=== PATIENT | female | born 1995 | race African-American/Black ===

== ENCOUNTER 2017-10-01 17:51 | Emergency (ER) | payer BC, SELFPAY ==
[2017-10-01 17:51] VITALS: BP 106/53; PULSE 58; RESP 16; TEMP 36.7; O2SAT 100; BMI 16.0
[2017-10-01] MEDS: 0.9% Normal Saline 1,000 ML 999 ML IV (18:29)
[2017-10-01] MEDS: DiphenhydrAMINE 50 MG/ML Syringe 25 MG IV (18:31)
[2017-10-01] MEDS: proCHLORPERazine 10 MG/2 ML Vial IV (18:32)
[2017-10-01] MEDS: Ketorolac 30 MG/ML Syringe IV (18:32)
[2017-10-01 18:38] VITALS: PULSE 78; RESP 16; O2SAT 100
--- NOTE | 2017-10-01 18:53 | ED.DCSUM_ITS ---
- ER Visit Summary Date of Service: 10/01/17 Chief Complaint: Headache, dizzy, slurred speech History of Present Illness: The patient is a 22 F with onset of migraine approximate 6 hours prior to arrival. She states it was general in onset and consistent with her prior headaches. She describes tingling and throbbing sensation in her head along with photophobia and slow speech. She has had all these symptoms with her prior migraines. Patient has not taken anything for migraines. Patient states she was recently advised that a Chiari malformation and saw a neurosurgeon who advised him something to do. She is scheduled to see a neurologist in [place] in October due to her migraines. Physical Examination: Vital signs are unremarkable. Patient's lying in bed in a darkened room. She is in no acute distress. Head neck examination is unremarkable. Heart is regular rate and rhythm. Lung sounds are clear. Abdomen is soft and nontender. Neuro exam reveals good strength and sensation throughout. She has slow, purposeful speech. Test Results: [] Emergency Department Course and Treatment: Patient is treated Toradol, Compazine , Benadryl, and IV fluids. On repeat evaluation patient does feel improved. She be discharged home with family members. Treatment Plan: [] Disposition: Discharge Impression: Migraine, improved This note was generated with [employer] dictation software. It may contain incorrect words, spelling, and punctuation that were not noted in review of the chart prior to signing ED Disposition - Plan for ED Patient: Chief Complaint: Headache Referrals: Vivian Pierce, SISSY-C [Primary Care Provider] -
--- NOTE | 2017-10-01 19:34 | ED.DEP ---
ED Disposition - Plan for ED Patient: Disposition: Home or Assisted Living Chief Complaint: Headache Instructions: ED Headache Migraine Referrals: Vivian Pierce NP-C [Primary Care Provider] - 1 Week
[2017-10-01 19:40] VITALS: BP 118/75; PULSE 61; RESP 16; O2SAT 99
== END 2017-10-01 19:54 | disposition home or self-care (01) ==
PROVIDERS: Emergency Provider Emergency Medicine; Family Provider Nurse Practitioner Family; PCP Nurse Practitioner Family
DX: G43.909 Migraine, unspecified, not intractable, without status migrainosus (principal); J45.909 Unspecified asthma, uncomplicated
CPT/HCPCS: 96361; 96374; 96375; 99284; J7030

== ENCOUNTER 2017-11-17 18:27 | Emergency (ER) | payer BC, SELFPAY ==
[2017-11-17 18:29] VITALS: BP 123/69; PULSE 52; RESP 14; TEMP 37.1; O2SAT 98; BMI 35.3
--- NOTE | 2017-11-17 19:02 | RAD_ITS ---
STUDY: X-RAY - RIGHT ANKLE REASON FOR EXAM: Female, 22 years old. Right-sided ankle pain and swelling after twisting injury. TECHNIQUE: 3 view(s) of the ankle. COMPARISON: None. FINDINGS: Normal visualized distal tibia and fibula. Normal medial and lateral malleoli. Normal tibiotalar articulation and ankle mortise. Normal visualized talus and calcaneus. The joint spaces are within normal limits. Visualized metatarsals have a grossly normal appearance. There is no demonstrated fracture. There is soft tissue swelling. RAD/Ankle min 3 Views IMPRESSION: No radiographic evidence of acute fracture. If there is still clinical concern for acute fracture, follow-up radiographs in 7-10 days maybe helpful in evaluating a healing radiographically occult fracture. Electronically Signed: Sue Garcia MD at 19:39 EDT , Service support ,
--- NOTE | 2017-11-17 20:49 | ED.DCSUM_ITS ---
- ER Visit Summary Date of Service: 11/17/17 Chief Complaint: Right ankle pain History of Present Illness: The patient is a 22 F who presents with pain in her right ankle that began after a fall today. Patient states she fell down a few steps. Patient is unsure of the exact mechanism of injury. Patient states her pain is worse with any ambulation. Patient denies any paresthesias or weakness. Patient denies any other injuries. Physical Examination: Vital signs are stable. Patient is afebrile. Patient is in no acute distress. Examination of the right ankle reveals tenderness over the medial and lateral malleoli. There is some edema noted. There is no bony crepitance or step-off noted. There is no deformity noted. Range of motion was limited in all motions of the right ankle secondary to pain. Pedal pulses were equal bilaterally. There is good capillary refill in all digits. Sensation was intact to light touch in all digits. Test Results: X-rays of the right ankle were obtained. There is no acute fracture noted. Emergency Department Course and Treatment: She was given an Aircast here. Patient was given a dose of Naprosyn here. Treatment Plan: Patient was instructed to ice and elevate the right ankle. Patient was instructed to wear her Aircast at all times while awake. Patient was given a prescription for Naprosyn. Patient was instructed to follow-up with her primary care physician in 7-10 days. Patient understood and was agreeable with the plan. All questions were answered. Disposition: Discharged home Impression: Right ankle sprain This note was generated with [employer] dictation software. It may contain incorrect words, spelling, and punctuation that were not noted in review of the chart prior to signing ED Disposition - Plan for ED Patient: Disposition: Home or Assisted Living Chief Complaint: Lower Extremity Injury Diagnosis: Right ankle sprain Instructions: ED Sprain Ankle W X Ray Prescriptions: Naproxen [Naprosyn] 500 mg PO BID PRN PRN #20 tab PRN Reason: Pain Referrals: Vivian Pierce NP-C [Primary Care Provider] -
[2017-11-17] MEDS: Naproxen 500 MG Tablet PO (20:52)
[2017-11-17 21:00] VITALS: RESP 18
== END 2017-11-17 21:04 | disposition home or self-care (01) ==
PROVIDERS: Emergency Provider Emergency Medicine; Family Provider Nurse Practitioner Family; PCP Nurse Practitioner Family
DX: S93.401A Sprain of unspecified ligament of right ankle, initial encounter (principal); W10.9XXA Fall (on) (from) unspecified stairs and steps, initial encounter; Y93.9 Activity, unspecified; Y92.9 Unspecified place or not applicable; G43.909 Migraine, unspecified, not intractable, without status migrainosus
CPT/HCPCS: 73610; 99283

== ENCOUNTER 2018-01-29 12:56 | Emergency (ER) | payer BC, SELFPAY ==
[2018-01-29 12:56] VITALS: BP 121/70; PULSE 64; RESP 16; TEMP 36.6; O2SAT 97; BMI 35.6
--- NOTE | 2018-01-29 13:41 | ED.DCSUM_ITS ---
- ER Visit Summary Date of Service: 01/29/18 Chief Complaint: Back pain History of Present Illness: The patient is a 22 F presenting with back pain ?3 days. She has pain in her bilateral lower back radiating to both legs. Denies numbness or weakness. Denies bowel or bladder incontinence. Denies known trauma. She has had similar symptoms in the past that resolved on its own. She tried stretching and Tylenol with minimal improvement. Denies fever. Denies drug use. Physical Examination: Vitals are stable. Patient is afebrile. Alert no acute distress. HEENT exam is unremarkable. Neck is supple. Lungs are clear and equal bilaterally. Heart is regular rate and rhythm. Abdomen is soft nontender nondistended. Back bilateral lower lumbar paraspinal muscle tenderness with no midline tenderness. Straight leg raise positive at 30? on the right. Extremities are unremarkable. Skin is warm and dry. No focal neurologic deficit. Normal strength and sensation Remainder of exam is unremarkable Emergency Department Course and Treatment: Patient is given Toradol, Norflex IM with improvement. Patient is advised to rest and follow-up with primary care physician. She is given prescription for Naprosyn and Flexeril. Advised return to ED if worsening complaints. Disposition: Discharge home Impression: Lumbar back pain This note was generated with [employer] dictation software. It may contain incorrect words, spelling, and punctuation that were not noted in review of the chart prior to signing ED Disposition - Plan for ED Patient: Chief Complaint: Back Instructions: ED Neck Back Pain General Prescriptions: Naproxen [Naprosyn] 500 mg PO BID PRN #20 tablet Cyclobenzaprine [Flexeril] 10 mg PO TID PRN #20 tablet PRN Reason: Muscle Spasm Referrals: Vivian Pierce, MANAGER ADMINISTRATIVE-C [Primary Care Provider] -
[2018-01-29] MEDS: Ketorolac 60 MG/2 ML Vial IM (13:54)
[2018-01-29] MEDS: Orphenadrine 60 MG/2 ML Ampul IM (13:55)
--- NOTE | 2018-01-29 15:40 | DCINST.ED_ITS ---
ED Disposition - Plan for ED Patient: Chief Complaint: Back Instructions: ED Neck Back Pain General Prescriptions: Naproxen [Naprosyn] 500 mg PO BID PRN #20 tablet Cyclobenzaprine [Flexeril] 10 mg PO TID PRN #20 tablet PRN Reason: Muscle Spasm Referrals: Vivian Pierce, ORTHOPEDIC NURSE PRACTITIONER-C [Primary Care Provider] -
[2018-01-29 15:48] VITALS: BP 111/81; PULSE 50; RESP 16; O2SAT 100
--- NOTE | 2018-01-29 15:49 | ED.RN ---
REVIEWED D/C INSTRUCTIONS, FOLLOW UP CARE, PRESCRIPTIONS, AND S/S THAT WOULD WARRANT A RETURN TO THE ED WITH PT. PT VERBALIZED AN UNDERSTANDING AND DENIES FURTHER QUESTIONS FOR THIS RN. PT SKIN P/W/D, RESP EVEN AND UNLABORED, PT A&O X 3, NO DISTRESS NOTED. PT AMBULATED OUT OF ED, GAIT STEADY.
== END 2018-01-29 15:50 | disposition home or self-care (01) ==
PROVIDERS: Emergency Provider Emergency Medicine; Family Provider Nurse Practitioner Family; PCP Nurse Practitioner Family
DX: M54.5 Low back pain (principal); S39.012A Strain of muscle, fascia and tendon of lower back, initial encounter; X58.XXXA Exposure to other specified factors, initial encounter; Y93.9 Activity, unspecified; Y92.9 Unspecified place or not applicable; G43.909 Migraine, unspecified, not intractable, without status migrainosus
CPT/HCPCS: 96372; 99282; A4216

== ENCOUNTER 2018-02-26 13:38 | Emergency (ER) | payer BC, SELFPAY ==
[2018-02-26 13:39] VITALS: BP 112/72; PULSE 59; PULSE 66; RESP 16; RESP 18; TEMP 36; O2SAT 100; BMI 35.4
--- NOTE | 2018-02-26 14:08 | CT_ITS ---
STUDY: CT BRAIN WITHOUT CONTRAST REASON FOR EXAM: Female, 22 years old. Dizziness, confusion RADIATION DOSAGE (If Supplied By Facility): CTDIvol = ( 60.81 ) mGy, DLP = ( 998.67 ) mGycm TECHNIQUE: Transaxial CT imaging of the brain was performed without administration of intravenous contrast material. Sagittal and coronal reconstructed images are provided and reviewed. Individualized dose optimization techniques were used for this CT. COMPARISON: MR 08/09/2017 FINDINGS: Normal soft tissue structures. Normal calvarium. Normal size ventricles and extra-axial spaces for the patient's age. Normal white matter tracts of the cerebral hemispheres. Normal basal ganglia and thalami. Normal brainstem. The cerebellar tonsils are low, consistent with a Chiari I malformation. There is no intracranial hemorrhage. There are no findings of an acute ischemic infarction. Normal visualized paranasal sinuses. CT/Brain/Head without Contrast IMPRESSION: Chiari I malformation. No acute intracranial abnormality. Electronically Signed: Cassius Barboza DO at 15:24 EDT Tel , Service support ,
--- NOTE | 2018-02-26 14:09 | EKG12_ITS ---
Test Reason : DIZZINESS Blood Pressure : / mmHG Vent. Rate : 054 BPM Atrial Rate : 054 BPM P-R Int : 166 ms QRS Dur : 080 ms QT Int : 442 ms P-R-T Axes : 038 023 037 degrees QTc Int : 419 ms Sinus bradycardia with sinus arrhythmia Otherwise normal ECG Confirmed by SARA CHINCHILLA, BECKY ([id number]), newspaper copy editor GABRIEL WOODS ([id number]) on 02/28/2018 9:16:37 AM Referred By: GRAHAM Confirmed By:BECKY RUIZ MD
--- NOTE | 2018-02-26 14:11 | ED.RN ---
NO OLD EKG'S IN MUSE.
[2018-02-26] MEDS: 0.9% Normal Saline 1,000 ML 1000 ML IV (14:37)
[2018-02-26 14:40] LABS: Absolute Lymphocyte Count 1.83 X10^3/ul (0.83-4.51); Absolute Neutrophil Count 2.3 X10^3/uL (2.0-7.7); Basophil# 0.01 X10^3/uL; Basophil% 0.2 % (0-1); Eosinophil# 0.21 X10^3/uL; Eosinophils% 4.7 % (0-5); Hematocrit 40.6 % (37-47); Hemoglobin 13.1 g/dl (12.0-15.0); Lymphocyte # 1.83 X10^3/ul (4.0); Lymphocyte % 40.8 % (19-41); Mean Corp Hgb Conc 32.3 g/gl (32-36); Mean Corpuscular Hgb 29.2 pg (27.0-32.0); Mean Corpuscular Volume 90.4 fL (81-99); Mean Platelet Vol. 13.9 fl (6.2-12.0); Monocyte# 0.18 X10^3/uL; Neutrophil # 2.25 X10^3/uL (2.7-7.7); Neutrophil % 50.1 % (47-70); Platelet Count 111 K/mm3 (150-450); RBC Distribution Width CV 13.7 % (11.6-14.6); RBC Distribution Width SD 45.2 fl (35.1-43.9); Red Blood Count 4.49 M/mm3 (4.2-5.4); White Blood Count 4.5 K/mm3 (4.4-11.0)
[2018-02-26 14:42] LABS: POSITIVE COUNT NO; POSITIVE DIFFERENTIAL NO; POSITIVE MORPHOLOGY NO
[2018-02-26 14:54] LABS: Anion Gap 5 (5-15); BUN 20 mg/dL (7-18); BUN/Creat Ratio 18.3 RATIO (10-20); Calcium,Total 8.9 mg/dL (8.5-10.1); Chloride 107 mmol/L (98-107); Creatinine, Serum 1.09 mg/dL (0.55-1.02); EST Glomerular Filtration Rate 66 mL/min (>60); Est Glom Filt Rate - Afr Amer 80 mL/min (>60); Estimated Creatinine Clearance 72.85 ml/min; Glucose 62 mg/dL (74-106); Potassium 3.7 mmol/L (3.5-5.1); Sodium Level 142 mmol/L (136-145)
[2018-02-26 15:05] LABS: Pregnancy, Serum, hCG Quali. NEGATIVE Negative (0-9 Nonpreg)
[2018-02-26 15:47] VITALS: BP 114/72; PULSE 57; RESP 18; O2SAT 98
--- NOTE | 2018-02-26 16:19 | ED.VISSUMM ---
- ER Visit Summary Date of Service: 02/26/18 Chief Complaint: Dizzy, lightheaded History of Present Illness: The patient is a 22 F with a history of migraine headaches. Patient reports a brief episode of dizziness at home this morning. After arriving at work she had another dizzy episode. Patient states she to hold onto something and sit down. She states she felt confused after this episode and somewhat had difficulty speaking. Symptoms are now improving. Patient states that she has had difficulty speaking with prior migraines but she had no headache this time. She did eat today. She had no recent head injury or cold symptoms. Physical Examination: Vital signs are unremarkable. Patient sitting upright in no acute distress. Head and neck examination is unremarkable. Heart is regular rate and rhythm. Lung sounds are clear. Abdomen is soft and nontender. Neuro exam is normal. Test Results: EKG is sinus at 54 with no sign of acute ischemia. CBC is significant only for platelet count of 111,000. I have no prior values to compare to. Chemistry studies reveal glucose of 62, BUN of 20, creatinine 1.09. test is negative. CT the head shows a Chiari I malformation. There is no acute abnormality. Emergency Department Course and Treatment: Patient is given IV fluids. Upon return of blood work she is given apple juice to drink. On repeat evaluation she is sitting up playing on her cell phone. She does feel improved. Patient has been given a liter of IV fluids to help with mild dehydration. She is encouraged to increase fluids over the next several days and make sure she is keeping her blood sugar up. I will notify patient and mother about the low platelet count make sure she follows up with [facility]. Treatment Plan: [] Disposition: Discharge Impression: 1. Dizziness, improved 2. Mild hypoglycemia 3. Thrombocytopenia This note was generated with [employer] software. It may contain incorrect words, spelling, and punctuation that were not noted in review of the chart prior to signing ED Disposition - Plan for ED Patient: Chief Complaint: Dizziness Referrals: Vivian Pierce NP-C [Primary Care Provider] -
--- NOTE | 2018-02-26 16:24 | DCINST.ED_ITS ---
ED Disposition - Plan for ED Patient: Disposition: Home or Assisted Living Chief Complaint: Dizziness Instructions: ED Dehydration, ED Dizziness [facility] Referrals: Vivian Pierce, PAGE MAKEUP SYSTEM OPERATOR-C [Primary Care Provider] - 1 Week
[2018-02-26 16:30] VITALS: BP 129/50; PULSE 59; RESP 18; O2SAT 100
== END 2018-02-26 16:30 | disposition home or self-care (01) ==
PROVIDERS: Emergency Provider Emergency Medicine; Family Provider Nurse Practitioner Family; PCP Nurse Practitioner Family
DX: R42 Dizziness and giddiness (principal); E16.2 Hypoglycemia, unspecified; D69.6 Thrombocytopenia, unspecified; E86.0 Dehydration; G43.909 Migraine, unspecified, not intractable, without status migrainosus; G93.5 Compression of brain
CPT/HCPCS: 70450; 80048; 84703; 85025; 93005; 96360; 99284; J7030; A4216

== ENCOUNTER 2018-05-26 22:21 | Emergency (ER) | payer BC, SELFPAY ==
[2018-05-26 22:22] VITALS: BP 112/69; PULSE 59; RESP 14; TEMP 36.9; O2SAT 99; BMI 37.8
--- NOTE | 2018-05-26 23:16 | ED.VISSUMM ---
- ER Visit Summary Date of Service: 05/26/18 Chief Complaint: [] She states she woke up this morning with nasal congestion. Gradual onset. No home treatment. She has had some mild myalgias. Also when she takes a deep breath she feels a little bit of chest congestion. No sick contacts. Comes in for further evaluation. No fevers or chills. History of Present Illness: The patient is a 23 F [] see above Physical Examination: [] Vital signs reviewed General: Well-nourished well-developed Head: Normocephalic atraumatic Eyes: Pupils equal round and reactive to light extraocular movements intact ENT: TMs clear no hemotympanum no trauma mild nasal congestion Neck: Nontender full range of motion Cardiovascular: Regular rate rhythm no murmurs normal S1-S2 Respiratory: No distress clear to auscultation bilaterally chest nontender Abdomen: Soft nontender nondistended normal bowel sounds no masses Back: Nontender no CVA tenderness Extremities: Nontender active range of motion ?4 extremities no trauma Skin: Normal color no trauma Neuro alert oriented cranial nerves II through XII intact normal strength sensation reflexes Test Results: [] Emergency Department Course and Treatment: [] At this time I think the patient has an upper respiratory infection or viral syndrome. She will use ibuprofen and Sudafed. Do not feel she needs lab work or imaging. I do not think she has pneumonia. I do not think she needs antibiotics. She will follow-up as an outpatient Treatment Plan: [] Disposition: [] Impression: [] Upper respiratory infection This note was generated with [employer] dictation software. It may contain incorrect words, spelling, and punctuation that were not noted in review of the chart prior to signing ED Disposition - Plan for ED Patient: Chief Complaint: Cold Sx Referrals: Vivian Pierce, AGING ROOM HAND-C [Primary Care Provider] -
--- NOTE | 2018-05-26 23:17 | ED.DEP ---
ED Disposition - Plan for ED Patient: Disposition: Home or Assisted Living Chief Complaint: Cold Sx Instructions: ED Upper Resp Infec No Abx Tx Referrals: Aletha Russo DO [NON-STAFF] -
--- NOTE | 2018-05-26 23:44 | ED.RN ---
DISCHARGE INSTRUCTIONS GIVEN TO AND REVIEWED WITH PATIENT, PATIENT DENIES QUESTIONS OR CONCERNS AND VOICES UNDERSTANDING OF DISCHARGE INSTRUCTIONS. PT AMBULATES OUT OF ROOM WITHOUT DIFFICULTY.
== END 2018-05-26 23:45 | disposition home or self-care (01) ==
LOC: ED 23:26
PROVIDERS: Emergency Provider Emergency Medicine; Family Provider Nurse Practitioner Family; PCP Nurse Practitioner Family
DX: J06.9 Acute upper respiratory infection, unspecified (principal); E66.9 Obesity, unspecified; G93.5 Compression of brain
CPT/HCPCS: 99283

== ENCOUNTER → 2018-07-17 14:04 | Outpatient (CLI) | payer BC, SELFPAY ==
[2018-07-23 19:33] LABS: HPV Reflexed? NOT INDICATED
== END ==
PROVIDERS: Visit Provider Obstetrics & Gynecology
DX: Z12.4 Encounter for screening for malignant neoplasm of cervix (principal)
CPT/HCPCS: 88175; G0145

== ENCOUNTER 2019-02-15 20:30 | Emergency (ER) | payer BC, SELFPAY ==
[2019-02-15 20:30] VITALS: BP 129/93; PULSE 43; RESP 15; TEMP 36.7; O2SAT 100; BMI 35.4
[2019-02-15] MEDS: SUMAtriptan 6 MG/0.5 ML Vial SC (20:58)
--- NOTE | 2019-02-15 21:30 | ED.DCSUM_ITS ---
History of Present Illness Chief Complaint: Headache Narrative: Patient presenting for evaluation secondary to a headache. Patient has an underlying history of migraine headaches, takes sotalol for this. She also reports that she typically takes Imitrex for of these headaches, but she is been out of it over the course of about the last month. Patient states that yesterday she had an onset of a headache that is typical for her headaches. It was gradual in onset is left-sided and is throbbing. Associated with some photophobia and nausea. Patient states that she feels somewhat foggy and has a little bit of word finding difficulty but this is not abnormal for her headaches. She denies any recent head injuries fevers neck stiffness or any abnormal skin rashes associated with this. [id number]-[id number] remedies have not alleviated the symptoms. Review of systems otherwise negative. Past Medical History - Allergies and Home Meds Allergies/Adverse Reactions: Allergies amoxicillin Allergy (Verified 02/15/19 20:33) Hives Primary Care Physician: Fermín Bautista NP-C [Primary Care Provider] - Smoking Status: Never smoker Review of Systems All systems negative except as indicated General: Denies: Fever Eyes: Denies: Visual changes - bilaterally Gastrointestinal: Reports: Nausea Neurological: Reports: Headache. Denies: Weakness, Parasthesia Physical Exam Vital Signs/Narrative: Vital Signs Temp Pulse Resp BP Pulse Ox 02/15/19 20:30 98.0 F 43 L 15 129/93 H 100 General: Well nourished, Well developed Head: NC, AT. Negative for: Temporary Artery Tenderness Eyes: Perrl, EOMI, - - Normal for endoscopy with no papilledema or hemorrhage ENT: Moist mucous membranes, No rhinorrhea Neck: Supple, No Lymphadenopathy, No JVD, Nontender, No Meningismus - Negative Brudzinski, Kernig, jolt Cardiovascular: Regular rhythm, No murmurs, Bradycardia Respiratory: No distress, CTA bilaterally, Chest nontender Abdomen: Soft, Nontender, Nondistended, Normal bowel sounds Extremities: Nontender, No edema Skin: Normal color, No rash, - - No petechia Neuro: Alert, Oriented x3, Cranial nerves II-XII grossly intact, Normal Strength, Normal Sensation, Normal DTR, Normal Gait Psychological: Normal affect Diagnostic/Tx/Re-eval - Medical Decision Making Patient presented secondary to a migraine headache. This was typical for her usual headaches. Patient was given a dose of subcutaneous Imitrex, repeat evaluation of the patient at 2130 showed improvement of her headache. This point I believe that she is appropriate for discharge. Patient will be given a prescription for Imitrex as she is been out of this, she was instructed to fol low-up with her neurologist. Patient was discharged in improved condition. Disposition: Home ED Disposition - Plan for ED Patient: Disposition: Home or Assisted Living Diagnosis: Migraine headache Instructions: ED Headache Migraine Prescriptions: Sumatriptan Succinate [Imitrex] 25 mg PO .X1 PRN #5 tab Referrals: Fermín Bautista NP-C [Primary Care Provider] - Additional Instructions: Follow-up with your neurologist
[2019-02-15 21:42] VITALS: BP 124/82; PULSE 50; RESP 18; O2SAT 99
== END 2019-02-15 21:44 | disposition home or self-care (01) ==
PROVIDERS: Emergency Provider Emergency Medicine; Family Provider Nurse Practitioner Primary Care; PCP Nurse Practitioner Primary Care
DX: G43.909 Migraine, unspecified, not intractable, without status migrainosus (principal)
CPT/HCPCS: 96372; 99282; J3030

== ENCOUNTER 2019-08-22 16:42 | Emergency (ER) | payer BC, SELFPAY ==
[2019-08-22 16:43] VITALS: BP 158/95; PULSE 81; RESP 16; TEMP 36.9; O2SAT 97; BMI 39.1
--- NOTE | 2019-08-22 16:54 | CT_ITS ---
STUDY: CT BRAIN WITHOUT CONTRAST REASON FOR EXAM: Female, 24 years old. MIGRAINE FUENTES X 4 HRS, WORSE THAN NORMAL, EYES LIGHT SENSITIVE RADIATION DOSAGE (If Supplied By Facility): CTDIvol = ( 44.99 ) mGy, DLP = ( 762.36 ) mGycm TECHNIQUE: Transaxial CT imaging of the brain was performed without administration of intravenous contrast material. Individualized dose optimization techniques were used for this CT. COMPARISON: Prior study of 02/26/2018 FINDINGS: Normal soft tissue structures. Normal calvarium. Normal size ventricles and extra-axial spaces for the patient''s age. Normal white matter tracts of the cerebral hemispheres. Normal basal ganglia and thalami. Normal brainstem. Normal cerebellum. There is no intracranial hemorrhage. There are no findings of an acute ischemic infarction. Normal visualized paranasal sinuses. CT/Brain/Head without Contrast IMPRESSION: Normal unenhanced CT scan of the brain. Electronically Signed: Gregorio Mcclure MD at 18:05 EST , Service support ,
--- NOTE | 2019-08-22 16:55 | ED.VIS.GEN ---
History of Present Illness Chief Complaint: Headache Informant: Patient, Family Onset: Hours - 4 hours Context: Gradual Onset Current Severity: Severe Maximum Severity: Severe Narrative: Patient presents with migraine that is come on over the past 4 hours. She states it feels a gets behind her left eye. She has some slurred speech and some tremors. She states she is only had this happen a few times with severe migraines, it is not typical of her normal migraine. Patient is on nortriptyline for her migraines. She has not taken anything else today for headache. She denies recent head trauma. She denies recent URI symptoms. She has mild nausea but no vomiting. She has light sensitivity and sound sensitivity. - Past Medical History (1) Migraines Status: Chronic Past Medical History - Allergies and Home Meds Allergies/Adverse Reactions: Allergies amoxicillin Allergy (Verified 08/22/19 16:43) Sergei Primary Care Physician: Fermín Bautista NP-C [Primary Care Provider] - Prior records reviewed: Yes Smoking Status: Never smoker Review of Systems General: Denies: Chills, Fever Eyes: Reports: - - Light sensitivity. Denies: Visual changes - bilaterally ENT: Denies: Bilateral ear pain Cardiovascular: Denies: Chest pain Respiratory: Denies: Dyspnea, Cough Gastrointestinal: Reports: Nausea. Denies: Abdominal pain, Vomiting Musculoskeletal: Reports: Neck pain Skin: Denies: Rash Neurological: Reports: Headache. Denies: Parasthesia Hematologic: Denies: Easy bruising Allergy: Denies: Uticaria Physical Exam Vital Signs/Narrative: Vital Signs Temp Pulse Resp BP Pulse Ox 08/22/19 16:43 98.4 F 81 16 158/95 H 97 Inital Vital Signs reviewed: Yes General: Well nourished, Well developed Head: Normocephalic Eyes: Perrl, EOMI ENT: Moist mucous membranes Neck: Supple, - - Muscular tenderness throughout the cervical paraspinal muscles. No meningismus. Cardiovascular: Regular rate, Regular rhythm Respiratory: No distress, CTA bilaterally Abdomen: Soft, Nontender Extremities: Nontender Skin: Normal color, No rash Neurological: Alert, Oriented x3, Normal Strength, Normal Sensation, - - Slow purposeful speech but she is easily understood. Psychological: Normal affect Diagnostic/Tx/Re-eval Impressions Brain CT 08/22/19 16:54 IMPRESSION: Normal unenhanced CT scan of the brain. Electronically Signed: Gregorio Mcclure MD at 18:05 EST , Service support , 08/22/19 16:54 Brain/Head without Contrast [CT] Stat - Medical Decision Making Patient was given Toradol, Reglan, Benadryl, and IV fluids. On repeat evaluation she states her headache is resolved. Her speech is clear and she feels back to her normal baseline. Test results are discussed with patient and mother at bedside. She will be discharged home with family. ED Disposition - Plan for ED Patient: Disposition: Home or Assisted Living Diagnosis: Migraine Instructions: ED, Migraine (Classical) Referrals: Fermín Bautista NP-C [Primary Care Provider] - As Needed
[2019-08-22] MEDS: Ketorolac 30 MG/ML Syringe IV (17:11)
[2019-08-22] MEDS: DiphenhydrAMINE 50 MG/ML Syringe 25 MG IV (17:12)
[2019-08-22] MEDS: Metoclopramide 10 MG/2 ML Vial IV (17:12)
[2019-08-22] MEDS: 0.9% Normal Saline 1,000 ML 999 ML IV (17:12)
[2019-08-22 17:18] VITALS: BP 132/95; PULSE 91; RESP 15; O2SAT 99
[2019-08-22 19:04] VITALS: BP 138/89; PULSE 102; RESP 17; O2SAT 100
== END 2019-08-22 19:06 | disposition home or self-care (01) ==
PROVIDERS: Emergency Provider Emergency Medicine; Family Provider Nurse Practitioner Primary Care; PCP Nurse Practitioner Primary Care
DX: G43.909 Migraine, unspecified, not intractable, without status migrainosus (principal)
CPT/HCPCS: 70450; 96361; 96374; 96375; 99283; J7030

== ENCOUNTER 2020-12-03 09:09 | Emergency (ER) | payer OTHER, SELFPAY ==
[2020-12-03 09:09] VITALS: BP 138/83; PULSE 91; RESP 16; TEMP 37.2; O2SAT 100; BMI 40.2
[2020-12-03] MEDS: Ketorolac 30 MG/ML Syringe IM (09:34)
--- NOTE | 2020-12-03 09:46 | ED.VIS.GEN ---
History of Present Illness Chief Complaint: Back Informant: Patient Narrative: Patient is a 25-year-old female with a past medical history of Chiari malformation who presents to the emergency department for acute on chronic low back pain. She states that this episode has been present for the past 3 days. She denies any inciting events. Has been progressively getting worse. The pain is in the lower back and does radiate down the right leg to the knee. It is mostly on the lateral aspect of her thighs. She has not been taking anything for this. She currently rates the pain as severe. Any movements makes the pain worse. No radiation of the pain into her abdomen. No urinary symptoms. No change in bowel movements. No nausea or vomiting. She denies any fevers or chills. She denies any saddle anesthesia. She denies any IV drug abuse. Past Medical History - Allergies and Home Meds Allergies/Adverse Reactions: Allergies amoxicillin Allergy (Verified 12/03/20 09:11) Hivchris Primary Care Physician: Fermín Bautista DIRECTOR SALES AND MARKETING, DIRECTOR SALES AND MARKETING-C [Primary Care Provider] - 3-5 Days if not improving Prior records reviewed: Yes Past Medical History: None Surgical History: noncontributory Smoking Status: Never smoker Review of Systems All systems negative except as indicated General: Denies: Chills, Fever, Sweats Eyes: Denies: Visual changes - bilaterally, Diplopia ENT: Denies: Rhinorrhea, Sore throat Cardiovascular: Denies: Chest pain, Palpitations Respiratory: Denies: Dyspnea, Cough, Dyspnea on exertion Gastrointestinal: Denies: Abdominal pain, Nausea, Vomiting, Diarrhea, Melena, Hematochezia Genitourinary: Denies: Dysuria, Hematuria, Frequency Musculoskeletal: Reports: Back pain, Extremity Pain. Denies: Neck pain, Swelling Skin: Denies: Rash, Wounds Neurological: Denies: Headache, Weakness, Numbness Physical Exam Vital Signs/Narrative: Vital Signs Temp Pulse Resp BP Pulse Ox 12/03/20 09:09 98.9 F 91 16 138/83 H 100 Inital Vital Signs reviewed: Yes General: Well nourished, Well developed, No Acute Distress Head: Normocephalic, Atraumatic Eyes: Perrl, EOMI ENT: Moist mucous membranes, No rhinorrhea Neck: Supple, Nontender Cardiovascular: Regular rate, Regular rhythm, No murmurs Respiratory: No distress, CTA bilaterally, Chest nontender Abdomen: Soft, Nontender, Nondistended, Normal bowel sounds Back: Normal Inspection, - - Tenderness over the right piriformis region on the right. Negative straight leg test but does have pain with raising her leg in the buttock region. Equal sensation bilateral. 2+ DP pulse. 5 out of 5 muscle strength.. Negative for: CVA tenderness, Spinal tenderness Extremities: Nontender, No edema Skin: Normal color, No rash Neurological: Alert, Normal Strength, Normal Sensation Psychological: Normal affect, Normal Mood Diagnostic/Tx/Re-eval - Medical Decision Making Patient presents to the ED for acute on chronic nontraumatic low back pain. She has no red flag symptoms for acute surgical spinal emergency. Without any trauma I do not feel any imaging is necessary. Will treat symptomatically with a dose of IM Toradol. Patient reassessed after treatment and she has gotten improvement in her pain. She does feel like it is manageable at this time. We will write a prescription for Naprosyn and Flexeril for home treatment. She understands that the Flexeril can make her sleepy and should not operate machinery with this. She is to follow-up with her PCP. Return precautions are reviewed. Will discharge home in stable condition. Her symptoms do seem related to musculoskeletal pain. All questions were answered. ED Disposition - Plan for ED Patient: Disposition: Home or Assisted Living Diagnosis: Low back pain Instructions: ED Back Pain (Acute or Chronic) Prescriptions: cycloBENZAPRine HCl [Flexeril] 10 mg PO TID PRN #9 tab PRN Reason: Muscle Spasm Transmission Status: Received by [id number] Naproxen [Naprosyn] 500 mg PO BID #14 tablet Transmission Status: Received by [id number] Referrals: Fermín Bautista DIRECTOR SALES AND MARKETING, DIRECTOR SALES AND MARKETING-C [Primary Care Provider] - 3-5 Days if not improving
[2020-12-03 10:37] VITALS: PULSE 72; RESP 16; O2SAT 97
== END 2020-12-03 10:38 | disposition home or self-care (01) ==
PROVIDERS: Emergency Provider Emergency Medicine; PCP Nurse Practitioner Primary Care
DX: M54.5 Low back pain (principal); G89.29 Other chronic pain
CPT/HCPCS: 96372; 99282

== ENCOUNTER 2021-01-18 05:34 | Emergency (ER) | payer OTHER, SELFPAY ==
[2021-01-18 05:34] VITALS: BP 148/105; PULSE 71; RESP 18; TEMP 36.7; O2SAT 100; BMI 39.0
[2021-01-18 05:46] LABS: Absolute Lymphocyte Count 1.82 X10^3/uL (0.83-4.51); Absolute Neutrophil Count 2.7 X10^3/uL (2.0-7.7); Basophil# 0.02 X10^3/uL; Basophil% 0.4 % (0-1); Eosinophil# 0.11 X10^3/uL; Eosinophils% 2.2 % (0-5); Hematocrit 41.5 % (37-47); Hemoglobin 13.3 g/dL (12.0-15.0); Lymphocyte # 1.82 X10^3/ul (0.83-4.51); Lymphocyte % 35.8 % (19-41); Mean Corpuscular Hgb 27.9 pg (27.0-32.0); Mean Corpuscular Volume 87.2 fL (81-99); Mean Platelet Vol. 12.8 fl (6.2-12.0); Monocyte# 0.38 X10^3/uL; Monocyte% 7.5 % (0-10); NRBC Flagged by Analyzer 0 % (0-5); Neutrophil # 2.74 X10^3/uL (2.7-7.7); Neutrophil % 53.7 % (47-70); Platelet Count 147 K/mm3 (150-450); RBC Distribution Width CV 13.3 % (11.6-14.6); RBC Distribution Width SD 42.8 fl (35.1-43.9); Red Blood Count 4.76 M/mm3 (4.2-5.4); White Blood Count 5.1 K/mm3 (4.4-11.0)
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
[2021-01-18] MEDS: Mag Hydrox/Al Hydrox/Simeth 30 ML UDC PO (05:58)
[2021-01-18 06:02] LABS: ALB/GLOB Ratio 1.1 RATIO (0.9-2.4); AST(SGOT) 12 U/L (15-37); Alanine Aminotransfer ALT/SGPT 17 U/L (13-56); Alkaline Phosphatase 66 U/L (45-117); Anion Gap 6 (5-15); BUN 10 mg/dL (7-18); BUN/Creat Ratio 10.2 RATIO (10-20); Calcium,Total 8.9 mg/dL (8.5-10.1); Chloride 108 mmol/L (98-107); Creatinine, Serum 0.98 mg/dL (0.55-1.02); EST Glomerular Filtration Rate 73 mL/min (>60); Est Glom Filt Rate - Afr Amer 88 mL/min (>60); Estimated Creatinine Clearance 78.96 ml/min; Globulin 3.7 g/dL (2.2-4.2); Glucose 91 mg/dL (74-106); Potassium 3.3 mmol/L (3.5-5.1); Protein, Total 7.7 g/dL (6.4-8.2); Sodium Level 142 mmol/L (136-145)
--- NOTE | 2021-01-18 06:06 | EKG12_ITS ---
Test Reason : CP Blood Pressure : / mmHG Vent. Rate : 064 BPM Atrial Rate : 064 BPM P-R Int : 140 ms QRS Dur : 080 ms QT Int : 422 ms P-R-T Axes : 037 016 046 degrees QTc Int : 435 ms Normal sinus rhythm Normal ECG Confirmed by GIANNA CHINCHILLA, MAUREEN ([id number]), research editor CHIQUIS HARDING ([id number]) on 01/20/2021 11:38:36 A M Referred By: SHAYNA Confirmed By:NICHOLAS KATZ MD
[2021-01-18 06:34] VITALS: RESP 16
[2021-01-18] MEDS: LORazepam 0.5 MG Tablet PO (06:41)
[2021-01-18 06:42] VITALS: BP 149/83; PULSE 67; RESP 14; O2SAT 99
== END 2021-01-18 06:44 | disposition home or self-care (01) ==
PROVIDERS: Emergency Provider Emergency Medicine; PCP Nurse Practitioner Primary Care
DX: F41.9 Anxiety disorder, unspecified (principal); R07.89 Other chest pain; R03.0 Elevated blood-pressure reading, without diagnosis of hypertension; E66.9 Obesity, unspecified; Z68.39 Body mass index [BMI] 39.0-39.9, adult
CPT/HCPCS: 80053; 85025; 93005; 99285; A4216

== ENCOUNTER 2021-02-15 15:39 | Emergency (ER) | payer OTHER, SELFPAY ==
[2021-02-15 15:40] VITALS: BP 141/84; PULSE 83; RESP 15; TEMP 36.3; O2SAT 99; BMI 38.2
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
== END 2021-02-15 17:14 | disposition home or self-care (01) ==
LOC: ED 16:13
PROVIDERS: Emergency Provider Emergency Medicine; PCP Nurse Practitioner Primary Care
DX: S16.1XXA Strain of muscle, fascia and tendon at neck level, initial encounter (principal); G44.209 Tension-type headache, unspecified, not intractable; V89.2XXA Person injured in unspecified motor-vehicle accident, traffic, initial encounter; Y93.9 Activity, unspecified; Y92.9 Unspecified place or not applicable
CPT/HCPCS: 70450; 72125; 99282

== ENCOUNTER 2021-02-16 12:38 | Emergency (ER) | payer OTHER, SELFPAY ==
[2021-02-15 15:40] VITALS: BMI 38.2
[2021-02-16 12:39] VITALS: BP 141/96; PULSE 84; RESP 14; TEMP 36.2; O2SAT 100; BMI 37.3
--- NOTE | 2021-02-16 12:42 | EKG12_ITS ---
Test Reason : SUICIDE Blood Pressure : / mmHG Vent. Rate : 077 BPM Atrial Rate : 077 BPM P-R Int : 136 ms QRS Dur : 078 ms QT Int : 400 ms P-R-T Axes : 060 023 068 degrees QTc Int : 452 ms Normal sinus rhythm with sinus arrhythmia Normal ECG Confirmed by GIANNA CHINCHILLA, MAUREEN ([id number]), acquisition editor CHIQUIS HARIDNG ([id number]) on 02/20/2021 10:58:01 A M Referred By: GEETA Confirmed By:NICHOLAS KATZ MD
--- NOTE | 2021-02-16 12:50 | EX.ED.DYSGE1 ---
HPI History of Present Illness Chief Complaint: Suicidal Informant: patient Onset/Context/Timing Onset: Days Context: Gradual Onset Timing: Continuous Narrative Narrative: PFSH [facility] Medical History Anxiety BP (high blood pressure) Migraines Home Medications NK 02/16/21 [History Last Taken Unknown] Allergy/AdvReac Type Severity Reaction Status Date / Time amoxicillin Allergy Hives Verified 02/16/21 12:43 Surgical History History of tonsillectomy and adenoidectomy Social History household members: family Smoking Status: Never smoker alcohol intake: never substance use type: does not use EXAM Physical Exam Const Vital Signs: 02/16/21 12:39 02/16/21 12:58 Temperature 97.1 F L Temperature Source Temporal Temporal Pulse Rate 84 Respiratory Rate 14 Blood Pressure 141/96 H Blood Pressure Mean 111 Pulse Ox 100 Oxygen Delivery Method Room Air MDM MDM MDM Narrative Medical decision making narrative: Patient presents with suicidal thoughts, plan for overdose or cutting her wrists. Patient underwent medical screening examination. EKG was obtained which was sinus rhythm without acute ischemia. Labs are unremarkable. Tox was positive for opiates, but the patient was recently discharged with Glade for pain. Alcohol was negative. was negative. At this point, the patient is medically cleared. Crisis is already evaluated the patient. Plan will be for inpatient hospitalization. Impression 1. Suicidal ideation with plan Lab Data Attestation: I reviewed the patient's lab results. Labs: Laboratory Results - last 24 hr 02/16/21 02/16/21 02/16/21 13:15 13:15 13:15 WBC 5.0 RBC 4.78 Hgb 13.3 Hct 41.7 MCV 87.2 MCH 27.8 MCHC 31.9 L RDW Std Deviation 43.4 RDW Coeff of Makayla 13.5 Plt Count 143 L MPV 13.5 H Immature Gran % (Auto) 0.400 Neut % (Auto) 73.7 H Lymph % (Auto) 20.7 Bullock % (Auto) 3.6 Eos % (Auto) 1.4 Baso % (Auto) 0.2 Absolute Neuts (auto) 3.7 Absolute Lymphs (auto) 1.03 Nucleated RBC % 0 Sodium 140 Potassium 3.5 Chloride 107 Carbon Dioxide 26.0 Anion Gap 7 BUN 13 Creatinine 1.09 H Estim Creat Clear Calc 73.86 Est GFR (MDRD) Af Amer 78 Est GFR (MDRD) Non-Af 65 BUN/Creatinine Ratio 11.9 Glucose 107 H Calcium 8.8 Serum , Qual Urine Opiates Screen Urine Methadone Screen Ur Barbiturates Screen Ur Phencyclidine Scrn Ur Amphetamines Screen U Methamphetamin-MDMA U Benzodiazepines Scrn Urine Cocaine Screen U Cannabinoids Screen Ur Drug Screen Comment Ethyl Alcohol < 3.0 02/16/21 02/16/21 13:15 13:17 WBC RBC Hgb Hct MCV MCH MCHC RDW Std Deviation RDW Coeff of Makayla Plt Count MPV Immature Gran % (Auto) Neut % (Auto) Lymph % (Auto) Bullock % (Auto) Eos % (Auto) Baso % (Auto) Absolute Neuts (auto) Absolute Lymphs (auto) Nucleated RBC % Sodium Potassium Chloride Carbon Dioxide Anion Gap BUN Creatinine Estim Creat Clear Calc Est GFR (MDRD) Af Amer Est GFR (MDRD) Non-Af BUN/Creatinine Ratio Glucose Calcium Serum , Qual NEGATIVE Urine Opiates Screen POSITIVE H Urine Methadone Screen NEGATIVE Ur Barbiturates Screen NEGATIVE Ur Phencyclidine Scrn NEGATIVE Ur Amphetamines Screen NEGATIVE U Methamphetamin-MDMA NEGATIVE U Benzodiazepines Scrn NEGATIVE Urine Cocaine Screen NEGATIVE U Cannabinoids Screen NEGATIVE Ur Drug Screen Comment Ethyl Alcohol Discharge Plan Triage Chief Complaint: Suicidal ED Provider: Faisal Zaragoza Dx/Rx/DC Orders Prescriptions: No Action NK RF: 0 Primary Care Provider: Fermín Bautista NP
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
[2021-02-16 13:28] LABS: Absolute Lymphocyte Count 1.03 X10^3/uL (0.83-4.51); Absolute Neutrophil Count 3.7 X10^3/uL (2.0-7.7); Basophil# 0.01 X10^3/uL; Basophil% 0.2 % (0-1); Eosinophil# 0.07 X10^3/uL; Eosinophils% 1.4 % (0-5); Hematocrit 41.7 % (37-47); Hemoglobin 13.3 g/dL (12.0-15.0); Lymphocyte # 1.03 X10^3/ul (0.83-4.51); Lymphocyte % 20.7 % (19-41); Mean Corp Hgb Conc 31.9 g/dL (32-36); Mean Corpuscular Hgb 27.8 pg (27.0-32.0); Mean Corpuscular Volume 87.2 fL (81-99); Mean Platelet Vol. 13.5 fl (6.2-12.0); Monocyte# 0.18 X10^3/uL; Monocyte% 3.6 % (0-10); NRBC Flagged by Analyzer 0 % (0-5); Neutrophil # 3.67 X10^3/uL (2.7-7.7); Neutrophil % 73.7 % (47-70); Platelet Count 143 K/mm3 (150-450); RBC Distribution Width CV 13.5 % (11.6-14.6); RBC Distribution Width SD 43.4 fl (35.1-43.9); Red Blood Count 4.78 M/mm3 (4.2-5.4)
[2021-02-16 13:38] LABS: Anion Gap 7 (5-15); BUN 13 mg/dL (7-18); BUN/Creat Ratio 11.9 RATIO (10-20); Calcium,Total 8.8 mg/dL (8.5-10.1); Chloride 107 mmol/L (98-107); Creatinine, Serum 1.09 mg/dL (0.55-1.02); EST Glomerular Filtration Rate 65 mL/min (>60); Est Glom Filt Rate - Afr Amer 78 mL/min (>60); Estimated Creatinine Clearance 73.86 ml/min; Glucose 107 mg/dL (74-106); Potassium 3.5 mmol/L (3.5-5.1); Sodium Level 140 mmol/L (136-145)
[2021-02-16 13:39] VITALS: RESP 16
[2021-02-16 13:48] LABS: Amphetamine Urine VISTA NEGATIVE (<1000 ng/mL); Barbiturate Urine VISTA NEGATIVE (< 200 ng/mL); Benzodiazepine Urine VISTA NEGATIVE (< 200 ng/mL); Cocaine Urine VISTA NEGATIVE (< 300 ng/mL); Ecstacy Urine VISTA NEGATIVE (< 500 ng/mL); Methadone Urine VISTA NEGATIVE (< 300 ng/mL); PCP Urine VISTA NEGATIVE (< 25 ng/mL); THC Urine VISTA NEGATIVE (< 50 ng/mL); Vista UDS pH Range 5
[2021-02-16 13:51] LABS: Internal QC Validated? YES +Cl - CLEAR BKGD
[2021-02-16 13:52] LABS: Pregnancy, Serum, hCG Quali. NEGATIVE Negative
[2021-02-16 13:56] LABS: Alcohol, Blood (Medical)-Serum < 3.0 mg/dL
[2021-02-16 14:00] VITALS: RESP 16
--- NOTE | 2021-02-16 14:21 | EX.ED.DYSGE1 ---
HPI History of Present Illness Chief Complaint: Suicidal [facility] Medical History (Updated 02/16/21 @ 16:[address] Mendel Moore DO) Anxiety BP (high blood pressure) Migraines Home Medications NK 02/16/21 [History Last Taken Unknown] Allergy/AdvReac Type Severity Reaction Status Date / Time amoxicillin Allergy Hives Verified 02/16/21 12:43 Surgical History History of tonsillectomy and adenoidectomy Social History household members: family Smoking Status: Never smoker alcohol intake: never substance use type: does not use EXAM Physical Exam Const Vital Signs: 02/16/21 12:58 02/16/21 13:39 02/16/21 14:00 Temperature Source Temporal Pulse Rate Respiratory Rate 16 16 Blood Pressure Blood Pressure Mean Pulse Ox Oxygen Delivery Method 02/16/21 15:00 02/16/21 16:29 02/16/21 16:54 Temperature Source Pulse Rate 92 92 Respiratory Rate 16 18 16 Blood Pressure 99/51 L 99/51 L Blood Pressure Mean 67 67 Pulse Ox 100 100 Oxygen Delivery Method Room Air [facility] Lab Data Labs: Laboratory Results - last 24 hr 02/16/21 02/16/21 02/16/21 13:15 13:15 13:15 WBC 5.0 RBC 4.78 Hgb 13.3 Hct 41.7 MCV 87.2 MCH 27.8 MCHC 31.9 L RDW Std Deviation 43.4 RDW Coeff of Makayla 13.5 Plt Count 143 L MPV 13.5 H Immature Gran % (Auto) 0.400 Neut % (Auto) 73.7 H Lymph % (Auto) 20.7 [place] % (Auto) 3.6 Eos % (Auto) 1.4 Baso % (Auto) 0.2 Absolute Neuts (auto) 3.7 Absolute Lymphs (auto) 1.03 Nucleated RBC % 0 Sodium 140 Potassium 3.5 Chloride 107 Carbon Dioxide 26.0 Anion Gap 7 BUN 13 Creatinine 1.09 H Estim Creat Clear Calc 73.86 Est GFR (MDRD) Af Amer 78 Est GFR (MDRD) Non-Af 65 BUN/Creatinine Ratio 11.9 Glucose 107 H Calcium 8.8 Serum , Qual Urine Opiates Screen Urine Methadone Screen Ur Barbiturates Screen Ur Phencyclidine Scrn Ur Amphetamines Screen U Methamphetamin-MDMA U Benzodiazepines Scrn Urine Cocaine Screen U Cannabinoids Screen Ur Drug Screen Comment Ethyl Alcohol < 3.0 02/16/21 02/16/21 13:15 13:17 WBC RBC Hgb Hct MCV MCH MCHC RDW Std Deviation RDW Coeff of Makayla Plt Count MPV Immature Gran % (Auto) Neut % (Auto) Lymph % (Auto) [place] % (Auto) Eos % (Auto) Baso % (Auto) Absolute Neuts (auto) Absolute Lymphs (auto) Nucleated RBC % Sodium Potassium Chloride Carbon Dioxide Anion Gap BUN Creatinine Estim Creat Clear Calc Est GFR (MDRD) Af Amer Est GFR (MDRD) Non-Af BUN/Creatinine Ratio Glucose Calcium Serum , Qual NEGATIVE Urine Opiates Screen POSITIVE H Urine Methadone Screen NEGATIVE Ur Barbiturates Screen NEGATIVE Ur Phencyclidine Scrn NEGATIVE Ur Amphetamines Screen NEGATIVE U Methamphetamin-MDMA NEGATIVE U Benzodiazepines Scrn NEGATIVE Urine Cocaine Screen NEGATIVE U Cannabinoids Screen NEGATIVE Ur Drug Screen Comment Ethyl Alcohol Discharge Plan Triage Chief Complaint: Suicidal ED Provider: Faisal Zaragoza Dx/Rx/DC Orders Clinical Impression: Depression with suicidal ideation Prescriptions: No Action NK RF: 0 Primary Care Provider: Fermín Bautista NP Referrals: Fermín Bautista NP, [employer] [Primary Care Provider] - Disposition Disposition: Psychiatric Hospital or Unit Discharge Location: [facility] Discharge Date/Time: 02/16/21 17:30
[2021-02-16] MEDS: LORazepam 1 MG Tablet PO (14:41)
[2021-02-16 15:00] VITALS: RESP 16
[2021-02-16 16:29] VITALS: BP 99/51; PULSE 92; RESP 18; O2SAT 100
[2021-02-16 16:54] VITALS: BP 99/51; PULSE 92; RESP 16; O2SAT 100
--- NOTE | 2021-02-16 17:03 | CM.ED ---
DELFINA Note: DELFINA met with patient's mother and updated her that [facility] is working on placement. No issues or concerns voiced. DELFINA received call from Emily Alvarez at [facility] and she advised patient was accepted at [facility]. She will update patient's mother. Staff at [facility] ([facility]) updated patient. Accepting Doctor at [facility] is Dr. Lobo. DELFINA updated pink slip. SW completed transfer sheet for MD. RN was advised of contact number to call for RN to RN. Staff and aviation ordnance officer updated. No further hospice social worker needs at this time. Plan: [facility] for inpatient psych. Emily WILLIAM
== END 2021-02-16 17:30 ==
PROVIDERS: Emergency Provider Emergency Medicine; PCP Nurse Practitioner Primary Care
DX: R45.851 Suicidal ideations (principal); F32.9 Major depressive disorder, single episode, unspecified
CPT/HCPCS: 80048; 80307; 82077; 84703; 85025; 87426; 93005; 99285

== ENCOUNTER 2021-03-08 20:11 | Emergency (ER) | payer OTHER, SELFPAY ==
[2021-03-08 20:11] VITALS: BP 142/101; PULSE 82; RESP 16; TEMP 36.7; O2SAT 97; BMI 38.2
--- NOTE | 2021-03-08 20:33 | EX.ED.DYSGE1 ---
HPI History of Present Illness Chief Complaint: Headache Narrative Narrative: Patient presents with gradual onset of headache for the past few hours, it is consistent with prior migraines the last migraine that was this bad was about 2 to 3 months ago. She has no neck pain or stiffness she has photophobia but no vision changes. She has phonophobia. She has no recent fever or chills. No confusion or any neurological symptoms. [facility] Medical History (Updated 02/16/21 @ 16:[address] Mendel Moore DO) Anxiety BP (high blood pressure) Migraines Home Medications NK 02/16/21 [History Last Taken Unknown] Allergy/AdvReac Type Severity Reaction Status Date / Time amoxicillin Allergy Hives Verified 03/08/21 20:13 Surgical History History of tonsillectomy and adenoidectomy Social History household members: family Smoking Status: Never smoker alcohol intake: never substance use type: does not use ROS ROS ED ROS Narrative Past medical history: Reviewed Medications: Reviewed Social history: Noncontributory Review of systems: All systems negative except as indicated General: No fever. Headache as in HPI Eyes: No visual changes ENT: No upper airway congestion, normal voice Neck: No neck pain Cardiovascular: No chest pain Respiratory: No shortness of breath or cough Gastrointestinal: No abdominal pain, nausea vomiting or diarrhea Genitourinary: No dysuria Musculoskeletal: Denies myalgias no difficulty with ambulation Skin: No rash Neurological: No memory loss, confusion or any focal weakness. Headache as in HPI Psych: No recent behavioral changes Hematologic: No easy bleeding or easy bruising EXAM Physical Exam Narrative Exam Narrative: Physical exam General: Patient appears in some distress she is laying down in a quiet dark room. Head: Normocephalic, Atraumatic Eyes: Conjunctiva not pale. Pupils are 3 mm and reactive ENT: Moist mucous membranes Neck: Supple, Nontender, No lymphadenopathy Cardiovascular: Regular rate, Regular rhythm Respiratory: No distress, CTA bilaterally Abdomen: Soft, Nontender, Nondistended Back: Nontender, Normal Inspection. Negative for: CVA tenderness Extremities: Nontender, No edema Skin: Normal color, No rash Neurological: Alert, Normal Strength, Normal Sensation Const Vital Signs: 03/08/21 20:11 Temperature 98.1 F Temperature Source Temporal Pulse Rate 82 Respiratory Rate 16 Blood Pressure 142/101 H Blood Pressure Mean 114 Pulse Ox 97 Oxygen Delivery Method Room Air Discharge Plan Triage Chief Complaint: Headache ED Provider: Luis Miguel Mckeon Dx/Rx/DC Orders Prescriptions: No Action NK RF: 0 Primary Care Provider: Fermín Bautista NP
[2021-03-08] MEDS: DiphenhydrAMINE 50 MG/ML Syringe 25 MG IV (20:36)
[2021-03-08] MEDS: Ketorolac 15 MG/ML Vial IV (20:37)
[2021-03-08] MEDS: Metoclopramide 10 MG/2 ML Vial IV (20:38)
[2021-03-08] MEDS: 0.9% Normal Saline 1,000 ML 999 ML IV (20:41)
[2021-03-08] MEDS: Magnesium Sulfate 2 GM in Syringe 1 EACH IV (21:23)
== END 2021-03-08 21:53 | disposition home or self-care (01) ==
PROVIDERS: Emergency Provider Emergency Medicine; PCP Nurse Practitioner Primary Care
DX: G43.909 Migraine, unspecified, not intractable, without status migrainosus (principal); F41.9 Anxiety disorder, unspecified
CPT/HCPCS: 96361; 96365; 96374; 96375; 99283; J7030; A4216; J3475

== ENCOUNTER 2021-07-26 11:42 | Emergency (ER) | payer OTHER, SELFPAY ==
[2021-07-26 11:43] VITALS: BP 106/67; PULSE 88; RESP 16; TEMP 37.1; O2SAT 100; BMI 43.2
--- NOTE | 2021-07-26 12:01 | EKG12_ITS ---
Test Reason : GEN ILLNESS Blood Pressure : / mmHG Vent. Rate : 094 BPM Atrial Rate : 094 BPM P-R Int : 156 ms QRS Dur : 070 ms QT Int : 350 ms P-R-T Axes : 055 035 054 degrees QTc Int : 437 ms Normal sinus rhythm Normal ECG Confirmed by SARA CHINCHILLA, BECKY ([id number]), health editor CHIQUIS HARDING ([id number]) on 07/28/2021 11:41:12 AM Referred By: DAPHNEY Confirmed By:BECKY RUIZ MD
--- NOTE | 2021-07-26 12:03 | EX.ED.DYSGE1 ---
HPI History of Present Illness Chief Complaint: General Illness Narrative Narrative: Patient presents with her mother because of body aches and subjective fever that she has had for the last 2 to 3 days. States she has not really been coughing. States she does not feel well. She denies any dysuria or hematuria. On occasion, she has mid central chest pain that can be worse with breathing. No leg swelling. No DVT or PE risk factors. She denies any loss of taste or smell. PFSH PFS Medical History Anxiety BP (high blood pressure) Migraines Home Medications aripiprazole 2.5 mg PO DAILY 03/08/21 [History Last Taken Unknown] sertraline 100 mg PO DAILY 03/08/21 [History Last Taken Unknown] hydroxyzine pamoate 50 mg PO QHS 07/26/21 [History Last Taken Unknown] Allergy/AdvReac Type Severity Reaction Status Date / Time amoxicillin Allergy Hives Verified 07/26/21 11:45 Surgical History History of tonsillectomy and adenoidectomy Social History household members: family Smoking Status: Never smoker alcohol intake: never substance use type: does not use ROS ROS ED ROS Narrative Constitutional: Subjective fever, no chills. Positive fatigue HEENT: No sore throat. No neck pain. No loss of vision. No rhinorrhea. Cardiovascular: Mild chest pain with breathing. No palpitations. No pedal edema. Respiratory: Rare cough, no shortness of breath. Abdominal: No abdominal pain. No nausea. No vomiting. Genitourinary: No dysuria. No hematuria. Musculoskeletal: No myalgias. No arthralgias. Neurologic: No headaches. No dizziness. No lightheadedness. Skin: No rash. No change in color. Psychiatric: No depression. No anxiety. EXAM Physical Exam Narrative Exam Narrative: Afebrile. Vital signs noted. HEENT: Normocephalic. Atraumatic. PERRL, EOMI. Neck soft and supple. No point tenderness or step off. Cardiovascular: Regular rate and rhythm. No murmurs, rubs, or gallops appreciated. Respiratory: No tachypnea. Lungs clear to auscultation bilaterally. Gastrointestinal: Abdomen soft, nontender, with normoactive bowel sounds. No rebound or guarding. Neurological: Awake. Alert. Nonfocal, nonlateralizing. Skin: No rash. Normal color. No pallor. Musculoskeletal: No pedal edema. Full range of motion extremities. Const Vital Signs: 07/26/21 11:43 07/26/21 11:45 Temperature 98.7 F Temperature Source Temporal Pulse Rate 88 Respiratory Rate 16 Respiratory Effort Normal Non-Labored Respiratory Pattern Normal Blood Pressure 106/67 Blood Pressure Mean 80 Pulse Ox 100 Oxygen Delivery Method Room Air MDM MDM MDM Narrative Medical decision making narrative: Patient is PERC negative. I do not feel that PE work-up needs to be pursued for her reported pleuritic chest pain. Her pulse ox is 100% on room air, and she has a pulse of 88. I will obtain a chest x-ray and an EKG along with influenza and Covid swabs. Her EKG demonstrates normal sinus rhythm at 94 bpm without ectopy or acute ST changes. Chest x-ray in 1 view shows normal examination, no acute process. Covid swab is negative. Influenza swab is negative. At this point in time, I feel she be discharged safely home with follow-up. She will follow up with her primary care physician. Return instructions were reviewed. Disposition is discharged home in stable condition. Lab Data Attestation: I reviewed the patient's lab results. Radiography Diagnostic Testing: Clinical Impression(s) from Imaging Studies Chest X-Ray 07/26/21 12:45 IMPRESSION: Normal x-ray examination of the chest. Electronically Signed: Alec Maradiaga MD at 13:02 EST , Service support , Discharge Plan Triage Chief Complaint: General Illness ED Provider: Ravi Ortiz Dx/Rx/DC Orders Clinical Impression: Acute viral syndrome, Myalgia, Chest pain Instructions: ED Chest Pain, Uncertain Cause, ED Myalgias, ED Pain, Acute, Uncertain Cause Prescriptions: No Action sertraline 100 mg tablet 100 mg PO DAILY RF: 0 aripiprazole 5 mg tablet 2.5 mg PO DAILY RF: 0 hydroxyzine pamoate 25 mg capsule 50 mg PO QHS RF: 0 Primary Care Provider: Fermín Bautista NP Referrals: Fermín Bautista FIRE EXTINGUISHER INSTALLER, [employer] EXTINGUISHER INSTALLER-C [Primary Care Provider] - 07/31/21 Disposition Disposition: Home, Self Care
--- NOTE | 2021-07-26 12:45 | RAD_ITS ---
STUDY: X-RAY CHEST REASON FOR EXAM: Female, 26 years old. Cough TECHNIQUE: Single AP portable view of the chest. COMPARISON: None. FINDINGS: The lungs are clear and expanded. There is no demonstrated pleural abnormality. Normal size heart. Normal mediastinum and curtis. Normal visualized pulmonary arteries. Normal visualized aortic arch and descending thoracic aorta. Normal visualized thoracic spine. Normal visualized ribs, clavicles, and shoulders. There is no demonstrated abnormality of the visualized soft tissue structures of the upper abdomen. RAD/Chest 1 View (Portable) IMPRESSION: Normal x-ray examination of the chest. Electronically Signed: Alec Maradiaga MD at 13:02 EST , Service support ,
[2021-07-26] MEDS: Ibuprofen 400 MG Tablet 800 MG PO (13:30)
== END 2021-07-26 13:32 | disposition home or self-care (01) ==
PROVIDERS: Emergency Provider Emergency Medicine; PCP Nurse Practitioner Primary Care
DX: B34.9 Viral infection, unspecified (principal); M79.10 Myalgia, unspecified site; R07.9 Chest pain, unspecified; F41.9 Anxiety disorder, unspecified; G43.909 Migraine, unspecified, not intractable, without status migrainosus; Z79.899 Other long term (current) drug therapy
CPT/HCPCS: 71045; 87426; 87804; 93005; 99283

== ENCOUNTER 2021-09-14 15:09 | Outpatient (CLI) | payer OTHER, SELFPAY ==
--- NOTE | 2021-09-14 15:28 | MRI_ITS ---
EXAM: MR VENOGRAPHY HEAD WITHOUT INTRAVENOUS CONTRAST CLINICAL INDICATION: PAPILLEDEMA, MASS VS VENOUS SINUS THROMBOSIS TECHNIQUE: Magnetic resonance venography images of the head without intravenous contrast. This report was created using [employer] report generation technology. COMPARISON: None. FINDINGS: SUPERIOR SAGITTAL SINUS: Unremarkable. Patent. STRAIGHT SINUS: Unremarkable. Patent. TRANSVERSE SINUSES: Unremarkable. Patent. SIGMOID SINUSES: Unremarkable. Patent. INTERNAL JUGULAR VEINS: Unremarkable as visualized. INTERNAL CEREBRAL AND CORTICAL VEINS: Unremarkable as visualized. MRI/MRV Head Without Contrast IMPRESSION: Normal head/brain MRV. Electronically Signed: Phil Guevara MD at 17:56 EST , Service support ,
--- NOTE | 2021-09-14 15:28 | MRI_ITS ---
EXAM: MR HEAD WITHOUT AND WITH INTRAVENOUS CONTRAST CLINICAL INDICATION: PAPILLEDEMA, MASS VS VENOUS SINUS THROMBOSIS TECHNIQUE: Multiplanar and multisequence MR images of the brain were obtained without and with intravenous contrast. This report was created using [employer] report [employer] technology. CONTRAST: 24ml IV Dotarem COMPARISON: CT 02/15/2021 and mri of 12.8.17 FINDINGS: BRAIN AND EXTRA-AXIAL SPACES: Increased FLAIR regions in the brain may signify early microvascular ischemic changes, a demyelinating process, vasculitis, or sequela related to migraines. There is no evidence for enhancement of the cerebral lesions. Therefore, if this is related to a demyelinating processes there are no active plaques. 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 This is unchanged. No intra- or extra-axial hemorrhage. No intracranial mass or mass effect. Ventricles are appropriate for age. No hydrocephalus. Basal cisterns are patent. SELLA: Unremarkable. Normal sella turcica, pituitary gland, infundibular stalk, optic chiasm and hypothalamus. AUDITORY SYSTEM: Unremarkable. The internal auditory canals are patent. BONES/JOINTS: Unremarkable. No discrete lytic or blastic abnormalities. SINUSES: Unremarkable as visualized. Clear. MASTOID AIR CELLS: Unremarkable as visualized. Clear. ORBITS: Unremarkable as visualized. Both globes, extraocular muscles, optic nerves and retrobulbar fat appear unremarkable. VASCULATURE: Unremarkable as visualized. Normal flow voids in the major intracranial circulation. 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 MRI/Brain W/WO Contrast IMPRESSION: Increased FLAIR regions in the brain may signify early microvascular ischemic changes, a demyelinating process, vasculitis, or sequela related to migraines. Electronically Signed: Pihl Guevara MD at 17:41 EST , Service support ,
== END 2021-09-14 23:59 | disposition short-term general hospital (02) ==
PROVIDERS: PCP Nurse Practitioner Primary Care; Visit Provider Ophthalmology
DX: H47.10 Unspecified papilledema (principal)
CPT/HCPCS: 70544; 70553; A9575

== ENCOUNTER 2021-09-22 10:08 | Outpatient (CLI) | payer OTHER, SELFPAY ==
--- NOTE | 2021-09-22 10:15 | RAD_ITS ---
PROCEDURE: Fluoroscopic guided Lumbar Puncture. DATE: 09/22/2021. CLINICAL INDICATION: Papilledema. PHYSICIAN: Andres Daigle M.D. MEDICATIONS: 1% lidocaine administered subcutaneously for local anesthesia. ACCESS SITE: Lower posterior back. NEEDLE: 22-gauge spinal needle. SPECIMEN: Approximately 12 mL clear]CSF fluid. FLUOROSCOPY TIME (if supplied): (1:30) minutes/seconds. COMPLICATIONS: None immediate. The risks, benefits, and alternatives to the procedure were explained to the patient. The specific risks of bleeding, infection, and neurovascular injury were detailed and accepted. Witnessed informed consent was obtained. The patient was placed on the fluoroscopic table in the prone position. The level for needle entry was determined and marked. The overlying skin was cleaned and prepped in the usual sterile fashion. 2% lidocaine was administered subcutaneously for local anesthesia. Under fluoroscopic guidance a 22-gauge spinal needle was advanced. The thecal sac was entered at the L2-L3 vertebral level. The inner stylet was removed. There was spontaneous flow of clear CSF fluid. The opening pressure was 29 mm. The patient was placed in a reversed Trendelenburg position. Approximately 12 mL of cerebrospinal fluid was collected using gravity. The specimen was collected and submitted to the laboratory for further evaluation. The needle was withdrawn,. Hemostasis was achieved and a sterile dressing placed. The patient tolerated the procedure well without any immediate complications. The patient was placed supine with head elevated and returned to the floor in stable condition. RAD/Dx Lumbar Puncture w/IMG Guide IMPRESSION: Successful fluoroscopic-guided lumbar puncture. Electronically Signed: Andres Daigle MD at 11:29 EST , Service support ,
[2021-09-22 10:32] VITALS: BP 159/97; PULSE 86; RESP 16; TEMP 36.8; O2SAT 100; BMI 44.9
[2021-09-22] MEDS: Lidocaine 2% (5ml sdv) 5 ML VIAL.MPF INFILT (10:45)
[2021-09-22 11:13] VITALS: BP 137/82; PULSE 69; RESP 16; O2SAT 100
[2021-09-22 11:30] VITALS: BP 134/86; PULSE 75; RESP 16; O2SAT 100
[2021-09-22 11:45] VITALS: BP 125/78; PULSE 72; RESP 16; O2SAT 100
[2021-09-22 11:45] LABS: Body Fluid Mononuclear WBC # 0.001 10^3/uL
[2021-09-22 12:00] VITALS: BP 124/76; PULSE 69; RESP 16; O2SAT 100
[2021-09-22 12:10] VITALS: BP 139/79; PULSE 72; RESP 16; O2SAT 100
[2021-09-22 12:21] LABS: Appearance CSF (character) CLEAR (Clear); CSF Color COLORLESS (Colorless); RBC Count, Spinal Fluid 0 /mm-3 (None seen); White Count, CSF 0 /mm-3 (0 - 5)
[2021-09-22 13:25] LABS: Tested Tube # 4
[2021-09-26 10:14] LABS: Pathologist Review Reviewed
== END 2021-09-22 23:59 | disposition home or self-care (01) ==
LOC: RAD 10:10
PROVIDERS: PCP Nurse Practitioner Primary Care; Referring Provider Ophthalmology; Visit Provider Ophthalmology
DX: H47.10 Unspecified papilledema (principal); E66.9 Obesity, unspecified
CPT/HCPCS: 62328; 87070; 87205; 89050; 89051

== ENCOUNTER 2022-01-09 14:33 | Emergency (ER) | payer OTHER, SELFPAY ==
[2022-01-09 14:34] VITALS: BP 132/95; PULSE 86; RESP 16; TEMP 36.9; O2SAT 98; BMI 50.2
--- NOTE | 2022-01-09 15:13 | EDS_ITS ---
HPI History of Present Illness Chief Complaint: Lower Extremity Injury Detail of Chief Complaint: Bilateral lower extremities locked up Informant: patient Occured/Mechanism Comment: Denies any trauma. No injury. Onset/Context/Timing Context: Sudden Onset Timing: Intermittent Current Severity: Mild Maximum Severity: Mild Associated Symptoms Associated Symptoms: Negative for Parasthesia, Weakness and Loss of Funtion Narrative Narrative: 26-year-old female no seen past medical history. Says she was walking today her legs locked up at the knees. This was both lower extremities. She said this is happened before in the past. She denies any fall or trauma. She denies any fever, redness or swelling. She is never had any leg surgeries. Denies any recent illness. Prior similar symptoms: Yes Recent Illness/Hospitalization: No PFSH PFSH Medical History Anxiety BP (high blood pressure) Migraines Home Medications aripiprazole 5 mg PO DAILY 03/08/21 [History Last Taken Unknown] hydroxyzine pamoate 50 mg PO QHS 07/26/21 [History Last Taken Unknown] magnesium 30 mg PO DAILY 09/22/21 [History Last Taken Unknown] Allergy/AdvReac Type Severity Reaction Status Date / Time amoxicillin Allergy Hives Verified 01/09/22 14:36 Surgical History History of tonsillectomy and adenoidectomy Social History household members: family Smoking Status: Never smoker alcohol intake: never substance use type: does not use ROS ROS ED ROS Narrative Denies recent illness. Review of Systems ROS Unobtainable: Denies due to encephalopathy Constitutional Constitutional ED: Denies fever(s) Eyes Eyes: Denies change in vision ENT ENT ED: Denies ear pain Cardiovascular Cardiovascular: Denies chest pain Respiratory/Chest Respiratory/Chest: Denies dyspnea Gastrointestinal Gastrointestinal: Denies abdominal pain, diarrhea, nausea or vomiting Genitourinary Genitourinary ED: Denies dysuria Musculoskeletal Musculoskeletal: Denies myalgias Integumentary Denies rash Neurologic Neurologic: Denies headache(s) Psychiatric Psychiatric: Denies depression Endocrine Endocrinology: Denies polyuria Hematologic/Lymphatic Hematologic/Lymphatic: Denies easy bruising Allergic/Immunologic Allergic/Immunologic ED: Denies urticaria EXAM Physical Exam Narrative Exam Narrative: 26-year-old female no acute distress vital signs stable afebrile. H EENT exam normal. Lungs are clear. Heart regular rate and rhythm. Abdomen soft nontender. Obese. Pelvic girdle intact. Moving all 4 extremities. Nontender. No edema. 5/5 motor strength. Dorsi plantarflexion intact. Full range of motion of both hips, knees and ankles. Calves are nontender without edema. Normal DP pulses. Normal touch sensation and motor strength. Back nontender. Neurologically she is awake alert with no focal motor deficits. Const Vital Signs: 01/09/22 14:34 Temperature 98.5 F Temperature Source Temporal Pulse Rate 86 Respiratory Rate 16 Blood Pressure 132/95 H Blood Pressure Mean 107 Pulse Ox 98 Oxygen Delivery Method Room Air Positive well nourished, well developed and obese; Negative for cachectic, contractures or unkempt General Appearance ED: well developed and NAD; Negative for unkempt, cachectic or contractures Nutritional Appearance: obese; Negative for cachectic HEENT Reports moist mucous membranes normocephalic and atraumatic; Negative for trauma or tenderness Eyes PERRL Neck full ROM and supple Thyroid: Negative for tender Chest Wall inspection of chest normal and palpation of chest normal Resp normal respiratory effort, no retractions and clear to auscultation bilaterally Auscultation: Negative for rales, rhonchi or wheezes Cardio regular rate, regular rhythm, S1 normal heart sound, S2 normal heart sound and no murmurs GI non-tender, non-distended and no masses Auscultation: normoactive bowel sounds Palpation: soft; Negative for tender, guarding or rebound tenderness present Back/Spine no CVA tenderness General Back: Negative for CVA tenderness Cervical Spine: Negative for cervical spine tenderness Thoracic Spine / Upper Back: Negative for thoracic spinal tenderness Lumbar Spine / Lower Back: Negative for lumbar spinal tenderness Extremity normal to inspection and full ROM General Extremety ED: Negative for cyanosis or edema General Extremity: Negative for cyanosis or edema Neuro oriented x3 and moves all extremities Sensorium / Orientation: alert, oriented to person, oriented to place and oriented to time; Negative for orientation impaired, confused, lethargic or stuporous Motor Exam: strength 5/5 throughout Psych mental status grossly normal Appearance: Negative for unkempt Mood & Affect: Negative for anxious Skin no wounds Lesions: no lesions Rashes: no rashes Trauma: Negative for abrasion or laceration MDM MDM MDM Narrative Medical decision making narrative: 26-year-old female has a normal exam and no segment past medical history. Complains other lower extremities locking up. Exam is benign. She does not need any test performed. Her symptoms are resolving. Discharge Plan Triage Chief Complaint: Lower Extremity Injury ED Provider: Tyrese Ambrosio Dx/Rx/DC Orders Clinical Impression: History of anxiety, Acute knee pain Prescriptions: No Action aripiprazole 5 mg tablet 5 mg PO DAILY RF: 0 hydroxyzine pamoate 25 mg capsule 50 mg PO QHS RF: 0 magnesium 30 mg Tablet 30 mg PO DAILY RF: 0 Primary Care Provider: Fermín Bautista NP Referrals: Fermín Bautista NP, [employer] SUPPORT PLANNER-C [Primary Care Provider] - 3-5 Days if not improving Activity Restrictions/Additional Instructions: Ice to your knees to help with soreness. Motrin for pain. Follow-up with your primary care provider if not improving. Disposition Disposition: Home, Self Care
== END 2022-01-09 15:40 | disposition home or self-care (01) ==
LOC: ED 15:21
PROVIDERS: Emergency Provider Emergency Medicine; PCP Nurse Practitioner Primary Care; Visit Provider Emergency Medicine
DX: F41.9 Anxiety disorder, unspecified (principal); Z68.43 Body mass index [BMI] 50.0-59.9, adult; M25.561 Pain in right knee; M25.562 Pain in left knee; Z79.899 Other long term (current) drug therapy; E66.9 Obesity, unspecified
CPT/HCPCS: 99282

== ENCOUNTER 2022-03-21 09:49 | Emergency (ER) | payer OTHER, SELFPAY ==
[2022-03-21 09:51] VITALS: BP 143/87; PULSE 96; RESP 14; TEMP 37.6; O2SAT 100; BMI 50.5
[2022-03-21 09:59] VITALS: BP 143/87; PULSE 96; RESP 14; TEMP 37.6; O2SAT 100
--- NOTE | 2022-03-21 10:02 | EX.ED.VIS.UR ---
HPI HPI - URI History of Present Illness Chief Complaint: Sore Throat Detail of Chief Complaint: Sore throat, cough, body aches x2 days Informant: patient Narrative Narrative: Patient presents to the emergency department complaint of not feeling well since yesterday. Patient states she developed a cough and low-grade fever as well as chills. Patient also has a sore throat and body aches. She denies loss of taste or smell. She denies sick contacts. Patient has had the COVID-vaccine and boosters. Patient denies any chest pain. Patient states the cough is dry. Patient denies urinary symptoms. ROS ROS ED Review of Systems ROS Unobtainable: other Constitutional Constitutional ED: Reports lethargy; Denies chills, fever(s), sweats or weight loss Eyes Eyes: Denies blurry vision, change in vision or diplopia ENT ENT ED: Reports sore throat; Denies rhinorrhea Cardiovascular Cardiovascular: Denies chest pain, orthopnea or racing heartbeat Respiratory/Chest Respiratory/Chest: Reports cough, dyspnea and dyspnea on exertion; Denies orthopnea or sputum Gastrointestinal Gastrointestinal: Denies abdominal pain, diarrhea, nausea or vomiting Genitourinary Genitourinary ED: Denies dysuria, hematuria or urinary frequency Musculoskeletal Musculoskeletal: Reports myalgias; Denies arthralgias, back pain or neck pain Integumentary Denies abscess, Abrasions or rash Neurologic Neurologic: Denies headache(s) or weakness Psychiatric Psychiatric: Denies anxiety, depression or suicidal thoughts Endocrine Endocrinology: Denies polydipsia, polyphagia or polyuria Hematologic/Lymphatic Hematologic/Lymphatic: Denies easy bleeding, easy bruising or lymphadenopathy Allergic/Immunologic Allergic/Immunologic ED: Denies mouth swelling, tongue swelling or urticaria [facility] Medical History Anxiety BP (high blood pressure) Migraines Home Medications aripiprazole 5 mg tablet 5 mg PO DAILY 03/08/21 [History Last Taken Unknown] hydroxyzine pamoate 25 mg capsule 50 mg PO QHS 07/26/21 [History Last Taken Unknown] magnesium 30 mg tablet 30 mg PO DAILY 09/22/21 [History Last Taken Unknown] Allergy/AdvReac Type Severity Reaction Status Date / Time amoxicillin Allergy Hives Verified 03/21/22 09:54 Surgical History History of tonsillectomy and adenoidectomy Social History household members: family Smoking Status: Never smoker alcohol intake: never substance use type: does not use EXAM Physical Exam Const Vital Signs: 03/21/22 09:51 03/21/22 09:59 03/21/22 10:02 Temperature 99.6 F H 99.6 F H Temperature Source Oral Oral Pulse Rate 96 96 Respiratory Rate 14 14 Respiratory Pattern Normal Blood Pressure 143/87 H 143/87 H Blood Pressure Mean 105 105 Pulse Ox 100 100 Oxygen Delivery Method Room Air Room Air Positive well nourished and well developed General Appearance ED: well developed and NAD HEENT Reports TM's clear and moist mucous membranes normocephalic and atraumatic; Negative for trauma or tenderness Tympanic Membrane ED: Yes TM's clear Eyes PERRL and EOMs intact bilaterally General Eye ED: Negative for pale conjunctiva or scleral icterus Neck no lymphadenopathy, supple and no JVD General: Negative for tenderness Chest Wall inspection of chest normal and palpation of chest normal Chest: Negative for tenderness Resp normal respiratory effort and clear to auscultation bilaterally Effort and Inspection: Negative for respiratory distress or pain with movement Auscultation: Negative for rhonchi, wheezes or diminished lung sounds Cardio regular rate, regular rhythm, S1 normal heart sound, S2 normal heart sound and no murmurs Peripheral Pulses: pulses 2+ throughout GI normal to inspection, nondistended, normoactive bowel sounds, soft to palpation, non-tender, non-distended and no masses Back/Spine no CVA tenderness and no thoracic nor lumbar tenderness Extremity normal to inspection General Extremety ED: Negative for edema General Extremity: Negative for edema Neuro oriented x3, CN's II-XII intact bilaterally, no sensory deficits noted and gait normal Sensorium / Orientation: awake, alert, oriented to person, oriented to place and oriented to time Motor Exam: strength 5/5 throughout and strength abnormal Psych mental status grossly normal Skin no rashes or lesions noted and no wounds MDM MDM MDM Narrative Medical decision making narrative: Patient had a rapid flu screen and COVID screen which were both negative. At this point suspect she has a viral upper respiratory infection. Patient advised to use ibuprofen Tylenol for discomfort. I also did advise her to repeat a COVID test in 2 days. Patient to return if increasing shortness of breath or condition should worsen anyway. Lab Data Attestation: I reviewed the patient's lab results. Discharge Plan Triage Chief Complaint: Sore Throat ED Provider: Steven Pereira Dx/Rx/DC Orders Clinical Impression: Viral URI Instructions: ED URI, Viral, No Abx (Adult) Prescriptions: No Action aripiprazole 5 mg tablet 5 mg PO DAILY Label Comments: TAKE 1 2 (ONE HALF) TABLET BY MOUTH TWICE DAILY hydroxyzine pamoate 25 mg capsule 50 mg PO QHS magnesium 30 mg Tablet 30 mg PO DAILY Primary Care Provider: Fermín Bautista NP Referrals: Fermín Bautista HEAD BAKER, HEAD BAKER-C [Primary Care Provider] - 3-5 Days Disposition Disposition: Home, Self Care
[2022-03-21 11:16] VITALS: O2SAT 97
== END 2022-03-21 11:16 | disposition home or self-care (01) ==
PROVIDERS: Emergency Provider Emergency Medicine; PCP Nurse Practitioner Primary Care; Visit Provider Emergency Medicine
DX: J06.9 Acute upper respiratory infection, unspecified (principal); F41.9 Anxiety disorder, unspecified; G43.909 Migraine, unspecified, not intractable, without status migrainosus; Z79.899 Other long term (current) drug therapy
CPT/HCPCS: 87428; 99282

== ENCOUNTER 2022-03-23 10:36 | Emergency (ER) | payer OTHER, SELFPAY ==
[2022-03-23 10:37] VITALS: BP 119/87; PULSE 90; RESP 18; TEMP 36.4; O2SAT 100; BMI 50.5
--- NOTE | 2022-03-23 11:07 | EDS_ITS ---
HPI HPI - URI History of Present Illness Chief Complaint: Shortness of Breath Informant: patient Narrative Narrative: Patient is a 27-year-old female with history of obesity, headaches, HTN and what sounds like idiopathic intracranial hypertension presenting with shortness of breath and a positive COVID home test. Patient started having symptoms 3 days ago. She started having a cough and generalized malaise and fatigue. She had myalgias which resolved. Last night she started feel like she was having issues with her breathing. She states it feels a gets harder to catch her breath. She did feel that she was wheezing last night. She had mostly a dry cough but has had intermittent sputum production. Is had nasal congestion. Took NyQuil at 6 AM but was not feeling better. Has history of asthma and was once hospitalized as a child for her breathing. No longer has an inhaler at home. Denies any nausea, vomiting, diarrhea or urinary symptoms. Last menstrual period was at beginning of the month and she is not concerned for . Took a COVID test today which was positive at home. Had a negative COVID test 2 days ago in our emergency room but that was at the beginning of her symptoms. Came in because she was worried about her breathing. No other complaints at this time. States she does not have a pulse oximeter at home. ROS ROS ED Constitutional Constitutional ED: Reports chills and fever(s) Eyes Eyes: Denies change in vision ENT ENT ED: Reports rhinorrhea and sore throat Cardiovascular Cardiovascular: Denies chest pain or palpitations Respiratory/Chest Respiratory/Chest: Reports cough and dyspnea; Denies dyspnea on exertion Gastrointestinal Gastrointestinal: Denies abdominal pain, diarrhea, nausea or vomiting Genitourinary Genitourinary ED: Denies dysuria or hematuria Musculoskeletal Musculoskeletal: Reports myalgias; Denies arthralgias or neck pain Integumentary Denies rash Neurologic Neurologic: Reports weakness; Denies headache(s) Psychiatric Psychiatric: Denies anxiety Hematologic/Lymphatic Hematologic/Lymphatic: Denies easy bleeding or easy bruising [facility] Medical History Anxiety Asthma BP (high blood pressure) Migraines Home Medications aripiprazole 5 mg tablet 5 mg PO DAILY 03/08/21 [History Last Taken Unknown] hydroxyzine pamoate 25 mg capsule 50 mg PO QHS 07/26/21 [History Last Taken Unknown] acetazolamide 250 mg tablet 1 tab PO TID 03/23/22 [History Last Taken Unknown] multivitamin 1 tab PO DAILY 03/23/22 [History Last Taken Unknown] nirmatrelvir 300 mg (150 mg x2)-ritonavir 100 mg tablet,dose pack(EUA) (Paxlovid) See Rx Instructions PO .COMPLEX #30 tabs 03/23/22 [Rx Last Taken Unknown] Allergy/AdvReac Type Severity Reaction Status Date / Time amoxicillin Allergy Hives Verified 03/23/22 10:39 Surgical History History of tonsillectomy and adenoidectomy Social History household members: family Smoking Status: Never smoker alcohol intake: never substance use type: does not use EXAM Physical Exam Const Vital Signs: 03/23/22 10:37 03/23/22 10:59 Temperature 97.6 F L Temperature Source Temporal Pulse Rate 90 Respiratory Rate 18 Respiratory Effort Short of Breath Respiratory Depth Normal Respiratory Pattern Normal Blood Pressure 119/87 H Blood Pressure Mean 97 Pulse Ox 100 Oxygen Delivery Method Room Air Positive well nourished, well developed and obese General Appearance ED: well developed Nutritional Appearance: obese HEENT Reports moist mucous membranes normocephalic and atraumatic Throat: posterior oropharynx normal Eyes PERRL and EOMs intact bilaterally Neck no lymphadenopathy, supple, no meningeal signs and no JVD Resp normal respiratory effort and clear to auscultation bilaterally Effort and Inspection: Negative for retractions Auscultation: Negative for wheezes Cardio no murmurs Rate: regular rate Rhythm: regular rhythm GI non-tender and non-distended Palpation: soft Back/Spine no CVA tenderness and normal ROM Extremity normal to inspection and full ROM Extremity Narrative: No peripheral edema appreciated Neuro oriented x3 and no sensory deficits noted Motor Exam: general weakness; Negative for strength abnormal Psych mental status grossly normal Skin Lesions: no lesions Rashes: no rashes MDM MDM MDM Narrative Medical decision making narrative: Patient is evaluated for COVID-like symptoms and a positive home COVID test. She is had 3 days of symptoms. She appears nontoxic. She is been short of breath however patient 100% on room air with no tachypnea. She is clear breath sounds on exam. Per current recommendations we will start her on Paxlovid and also give her an albuterol inhaler given her history of asthma. She is not currently wheezing. I do not think a chest x-ray is indicated. She is PERC negative and with only 3 days symptoms I do not think she has pneumonia or pulmonary emboli as a cause of her respiratory symptoms. Patient encouraged to drink lots of fluids and alternate ibuprofen and Tylenol for symptom control. Given return precautions as well as a pulse oximeter and counseled on how to use it. Patient verbalized agreement understand this plan. Discharged home in stable condition. Discharge Plan Triage Chief Complaint: Shortness of Breath ED Provider: Alannah Mccabe Dx/Rx/DC Orders Clinical Impression: COVID-19, Acute dyspnea Instructions: Coronavirus Disease 2019 (COVID-19): Caring for Yourself or Others Prescriptions: New Paxlovid (EUA) 300 mg (150 mg x 2)-100 mg tablets,dose pack See Rx Instructions .ROUTE .COMPLEX Qty: 30 0RF Rx Instructions: take TWO 150 mg tablets of nirmatrelvir with ONE 100 mg tablet of ritonavir twice daily for 5 days No Action aripiprazole 5 mg tablet 5 mg PO DAILY Label Comments: TAKE 1 2 (ONE HALF) TABLET BY MOUTH TWICE DAILY hydroxyzine pamoate 25 mg capsule 50 mg PO QHS multivitamin Tablet 1 tab PO DAILY acetazolamide 250 mg tablet 1 tab PO TID Primary Care Provider: Fermín Bautista NP Referrals: Fermín Bautista DEPARTMENT ADMINISTRATOR, DEPARTMENT ADMINISTRATOR-C [Primary Care Provider] - Activity Restrictions/Additional Instructions: Please decrease your aripiprazole by half while taking the COVID medications. (Take half a pill daily). If your oxygen goes below 90% at rest with home pulse oximeter please return to the emergency room for further evaluation. Drink lots of fluids. Alternate ibuprofen and Tylenol for fever and body aches. Disposition Disposition: Home, Self Care
[2022-03-23 11:34] VITALS: RESP 16
== END 2022-03-23 11:35 | disposition home or self-care (01) ==
PROVIDERS: Emergency Provider Emergency Medicine; PCP Nurse Practitioner Primary Care; Visit Provider Emergency Medicine
DX: U07.1 COVID-19 (principal); Z68.43 Body mass index [BMI] 50.0-59.9, adult; E66.9 Obesity, unspecified; I10 Essential (primary) hypertension; G93.2 Benign intracranial hypertension; J45.909 Unspecified asthma, uncomplicated; Z79.899 Other long term (current) drug therapy; G43.909 Migraine, unspecified, not intractable, without status migrainosus; F41.9 Anxiety disorder, unspecified
CPT/HCPCS: 99282

== ENCOUNTER 2024-03-04 04:34 | Emergency (ER) | payer OTHER, SELFPAY ==
[2024-03-04 04:34] VITALS: BP 128/74; PULSE 77; RESP 18; TEMP 37.1; O2SAT 100; BMI 29.7
[2024-03-04] MEDS: 0.9% Normal Saline (500mL Bag) 500 ML 999 ML IV (04:34)
[2024-03-04 04:41] VITALS: BP 128/74; PULSE 77; RESP 18; TEMP 37.1; O2SAT 100
--- NOTE | 2024-03-04 04:46 | EDS_ITS ---
HPI History of Present Illness Chief Complaint: General Illness Informant: patient Narrative Narrative: 28-year-old female presents wanting treatment for her migraine. She states she started having some low-grade fevers and congestion yesterday and did at home CO VID test and is testing positive. Started having symptoms yesterday. She had a little bit of wheezing with regards to her asthma yesterday but not now. Denies any nausea, vomiting, focal neurologic symptoms, confusion, neck stiffness, vision changes. She has had some photophobia. She has had prior COVID vaccinations. [facility] Medical History Asthma BP (high blood pressure) Anxiety Migraines Home Medications ?Medication ?Instructions ?Recorded ?Last Taken ?Type multivitamin 1 tab PO DAILY 03/23/22 Unknown History Allergy/AdvReac Type Severity Reaction Status Date / Time amoxicillin Allergy Hives Verified 03/04/24 04:34 Surgical History (Updated 03/04/24 @ 04:38 by Mariela Badillo) History of gastric bypass History of tonsillectomy and adenoidectomy Social History household members: family Smoking Status: Never smoker alcohol intake: never substance use type: does not use ROS ROS ED Constitutional Constitutional ED: Denies chills or fever(s) Eyes Eyes: Reports photophobia; Denies blurry vision or diplopia ENT ENT ED: Reports nasal congestion, rhinorrhea and sore throat; Denies ear pain Cardiovascular Cardiovascular: Denies chest pain or palpitations Respiratory/Chest Respiratory/Chest: Reports cough; Denies dyspnea Gastrointestinal Gastrointestinal: Denies abdominal pain, diarrhea, nausea or vomiting Genitourinary Genitourinary ED: Denies dysuria or hematuria Musculoskeletal Musculoskeletal: Denies myalgias or neck pain Integumentary Denies abscess or rash Neurologic Neurologic: Reports headache(s); Denies paresthesias or weakness Psychiatric Psychiatric: Denies depression or suicidal thoughts Endocrine Endocrinology: Denies polydipsia or polyuria EXAM Physical Exam Const Vital Signs: 03/04/24 04:34 03/04/24 04:34 03/04/24 04:41 Temperature 98.8 F 98.8 F Temperature Source Oral Oral Pulse Rate 77 77 Respiratory Rate 18 18 Respiratory Effort Normal Non-Labored Respiratory Pattern Normal Blood Pressure 128/74 H 128/74 H Blood Pressure Mean 92 92 Pulse Ox 100 100 Oxygen Delivery Method Room Air Room Air 03/04/24 05:41 Temperature 98.8 F Temperature Source Oral Pulse Rate 79 Respiratory Rate 17 Respiratory Effort Respiratory Pattern Blood Pressure 117/82 H Blood Pressure Mean 93 Pulse Ox 98 Oxygen Delivery Method Room Air Positive well nourished and well developed General Appearance ED: well developed and NAD HEENT Reports moist mucous membranes normocephalic and atraumatic Throat: Negative for posterior oropharynx abnormal Eyes PERRL and EOMs intact bilaterally Eyes Narrative: photophobia Neck no lymphadenopathy, supple and no meningeal signs Resp normal respiratory effort and clear to auscultation bilaterally Cardio no murmurs Rate: regular rate; Negative for tachycardic Rhythm: regular rhythm GI non-tender and non-distended Palpation: soft Extremity normal to inspection and full ROM Neuro oriented x3, CN's II-XII intact bilaterally and no sensory deficits noted Sensorium / Orientation: alert Speech: speech normal Gait (Neuro): normal gait Motor Exam: strength 5/5 throughout Psych mental status grossly normal Skin Lesions: no lesions Rashes: no rashes MDM MDM MDM Narrative Medical decision making narrative: Lungs are clear, vital signs are normal including pulse oximetry 100% on room air. No tachycardia or suspicion for PE at this time or COVID pneumonitis. I do not think she needs Paxlovid. Treating her migraine with IV fluids, Reglan, Toradol. On reevaluation she feels much better her headache is completely gone. Vital signs are normal. Reassured given appropriate discharge instructions offered a work note but did not need 1. Discharge Plan Triage Chief Complaint: General Illness ED Provider: Artis Valdovinos Dx/Rx/DC Orders Clinical Impression: COVID-19, Headache, migraine Instructions: Coronavirus Disease 2019 (COVID-19): Caring for Yourself or Others, ED, Migraine (Classical) Prescriptions: No Action multivitamin Tablet 1 tab PO DAILY Primary Care Provider: Karlee Dodson Referrals: Karlee Dodson DO [Primary Care Provider] - As Needed Activity Restrictions/Additional Instructions: Try to get a home portable pulse oximeter and closely watch your oxygen levels periodically. If you stay below 90% for more than a minute or so, and/or you are feeling like your breathing is getting worse, return to the emergency department for further evaluation. Currently, CDC recommendations state that you should stay home through day 5 of symptoms, then as long as symptoms are improving, if you need to go to work or somewhere else you may for days 6-10 as long as you are wearing a mask the entire time. If you are feeling better after day 10 you may resume life is normal. Print Language: Portuguese Disposition Disposition: Home, Self Care
[2024-03-04] MEDS: Ketorolac 30 MG/ML Syringe IV (04:59)
[2024-03-04] MEDS: Metoclopramide 10 MG/2 ML Vial 5 MG IV (05:01)
[2024-03-04 05:41] VITALS: BP 117/82; PULSE 79; RESP 17; TEMP 37.1; O2SAT 98
[2024-03-04 06:02] VITALS: BP 123/71; PULSE 77; RESP 16; TEMP 37.1; O2SAT 99
== END 2024-03-04 06:05 | disposition home or self-care (01) ==
PROVIDERS: Emergency Provider Emergency Medicine; PCP Family Medicine; Visit Provider Emergency Medicine
DX: U07.1 COVID-19 (principal); G43.909 Migraine, unspecified, not intractable, without status migrainosus
CPT/HCPCS: 96361; 96374; 96375; 99283; J7030; A4216

== ENCOUNTER 2025-01-27 18:20 | Emergency (ER) | payer OTHER, SELFPAY ==
[2025-01-27 18:21] VITALS: BP 120/87; PULSE 59; RESP 18; TEMP 36.1; O2SAT 100; BMI 32.3
[2025-01-27 19:13] LABS: Internal QC Validated? YES +Cl - CLEAR BKGD; Pregnancy, Serum, hCG Quali. NEGATIVE Negative; Record Kit Lot#, Serum Preg. 947241
[2025-01-27 19:17] LABS: ALB/GLOB Ratio 1.5 RATIO (0.9-2.4); AST(SGOT) 21 U/L (<=31); Alanine Aminotransfer ALT/SGPT 23 U/L (<=34); Albumin, Serum 4.3 g/dL (3.5-5.0); Alkaline Phosphatase 61 U/L (35-104); Anion Gap 11 (5-15); BUN 18 mg/dL (4-19); BUN/Creat Ratio 17.8 RATIO (10-20); Calcium,Total 9.3 mg/dL (7.6-11.0); Chloride 105 mmol/L (98-108); Creatinine, Serum 1.01 mg/dL (0.70-1.20); EST Glomerular Filtration Rate 77 (>60); Estimated Creatinine Clearance 90.04 ml/min (50-250); Globulin 2.8 g/dL (2.2-4.2); Glucose 89 mg/dL (70-99); Lipase 73 U/L (13-75); Potassium 3.8 mmol/L (3.3-5.1); Protein, Total 7.1 g/dL (5.9-8.4); Sodium Level 140 mmol/L (133-145); Total Bilirubin 0.27 mg/dL (0.00-1.30)
[2025-01-27] MEDS: Lidocaine 2% Viscous15 ML UDC 15 ML PO (19:30)
[2025-01-27] MEDS: Mag Hydrox/Al Hydrox/Simeth 30 ML UDC PO (19:30)
[2025-01-27] MEDS: Famotidine 200 MG/20 ML MDV 20 MG in 0.9% Normal Saline (Pres. free 8 ML 300 MG IV (19:57)
[2025-01-27 20:20] VITALS: BP 126/87; PULSE 56; RESP 16; O2SAT 100
--- NOTE | 2025-01-27 20:21 | EDS_ITS ---
HPI History of Present Illness Chief Complaint: Abd Pain Detail of Chief Complaint: Upper abdominal pain in the epigastric area that is crampy in nature with n Informant: patient Onset/Context/Timing Onset: Today and Days Context: Sudden Onset Timing: Continuous and Waxes and wanes Quality: Crampy Location: Epigastrium Current Severity: Mild Maximum Severity: Moderate Worsened by: Nothing Relieved by: Nothing Associated Symptoms Associated Symptoms: Nausea with minimal emesis Narrative Narrative: Patient is a 29-year-old female status post Liborio-en-Y. Bariatric surgery was performed at [facility]. She presents with crampy epigastric pain that does not radiate. This started several hours prior to presentation. Patient states she had pizza for lunch at approximately noon. She reports some nausea. The pain does not radiate through to her back. She has no known history of biliary disease. She denies liver disease. She was on a PPI for reflux/gastritis. She is no longer on a PPI. She denies black or maroon- colored stool. She denies chest pain, shortness of breath, cough or difficulty breathing. She has no history of renal ureterolithiasis. She denies dysuria, frequency, urgency or hematuria. There are no alleviating, precipitating or exacerbating factors. Prior similar symptoms: No Recent Illness/Hospitalization: No PFSH PFSH Medical History Asthma BP (high blood pressure) Anxiety Migraines Home Medications ?Medication ?Instructions ?Recorded ?Last Taken ?Type multivitamin 1 tab PO DAILY 03/23/22 Unkn own History omeprazole 40 mg capsule,delayed 40 mg PO DAILY #30 ca ps 01/27/25 Unknown Rx release Allergy/AdvReac Type Severity Reaction Status Date / Time amoxicillin Allergy Hives Verified 01/27/25 18:21 Family History no significant family his Surgical History History of gastric bypass History of tonsillectomy and adenoidectomy Social History household members: family Smoking Status: Never smoker alcohol intake: never substance use type: does not use ROS ROS ED Constitutional Constitutional ED: Denies chills, fever(s), subjective or sweats Cardiovascular Cardiovascular: Denies chest pain or palpitations Respiratory/Chest Respiratory/Chest: Denies cough, dyspnea or dyspnea on exertion Gastrointestinal Gastrointestinal: Reports abdominal pain, nausea and vomiting; Denies constipation, diarrhea or melena Genitourinary Genitourinary ED: Denies dysuria, hematuria or urinary frequency Musculoskeletal Musculoskeletal: Denies arthralgias, back pain or myalgias Hematologic/Lymphatic Hematologic/Lymphatic: Reports systems reviewed and no addt'l complaints, except as documented EXAM Physical Exam Const Vital Signs: 01/27/25 18:21 01/27/25 20:20 Temperature 97 F L Temperature Source Temporal Pulse Rate 59 L 56 L Respiratory Rate 18 16 Blood Pressure 120/87 H 126/87 H Blood Pressure Mean 98 100 Pulse Ox 100 100 Oxygen Delivery Method Room Air Room Air Positive well nourished and well developed General Appearance ED: well developed and NAD; Negative for pallor HEENT Reports moist mucous membranes HEENT Narrative: Head is atraumatic and normocephalic. Ears normal. Nares patent. Posterior pharynx is normal. Eyes PERRL and EOMs intact bilaterally General Eye ED: Negative for pale conjunctiva or scleral icterus Neck no lymphadenopathy, supple and no JVD Resp normal respiratory effort and clear to auscultation bilaterally Cardio regular rate, regular rhythm, S1 normal heart sound, S2 normal heart sound and no murmurs GI normal to inspection, nondistended, normoactive bowel sounds, non-distended and no masses; Negative for non-tender or hepatosplenomegaly GI Narrative: She has negative clinical Urena sign. There is no guarding or peritoneal findings. Auscultation: normoactive bowel sounds Palpation: soft and tender epigastric Back/Spine no CVA tenderness Extremity normal to inspection Neuro oriented x3 and CN's II-XII intact bilaterally Sensorium / Orientation: alert Psych mental status grossly normal Skin no rashes or lesions noted, no wounds and skin turgor normal General Skin Exam: elasticity normal; Negative for jaundice or pallor MDM MDM MDM Narrative Medical decision making narrative: Differential diagnosis would include reflux, esophagitis/gastritis, peptic ulcer disease, doubt perforation from her Liborio-en-Y. Nurse protocol orders were initiated. Patient was treated with GI cocktail and IV Pepcid. Last ER visit was March 2024 for COVID. She also was seen March 2022 for respiratory symptoms. And she was seen at another visit in March 2022 for upper respiratory infection. History & Record Review Additional record(s) reviewed:: Prior ED visit and Prior labs Lab Data Attestation: I reviewed the patient's lab results. Lab results narrative: Competence of metabolic panel is normal. Serum test is normal. Lipase is normal. CBC is normal. Labs: Laboratory Results - last 24 hr 01/27/25 18:29 WBC 5.1 RBC 4.46 Hgb 13.4 Hct 40.2 MCV 90.1 MCH 30.0 MCHC 33.3 RDW Std Deviation 42.8 RDW Coeff of Makayla 13.0 Plt Count Not Reportable MPV 14.0 H Immature Gran % (Auto) 0.400 Neut % (Auto) 40.2 L Lymph % (Auto) 48.2 H Dickey % (Auto) 4.9 Eos % (Auto) 5.7 H Baso % (Auto) 0.6 Absolute Neuts (auto) 2.1 Absolute Lymphs (auto) 2.46 Nucleated RBC % 0 Sodium 140 Potassium 3.8 Chloride 105 Carbon Dioxide 24.0 Anion Gap 11 BUN 18 Creatinine 1.01 Estim Creat Clear Calc 90.04 Est GFR (MDRD) Non-Af 77 BUN/Creatinine Ratio 17.8 Glucose 89 Calcium 9.3 Total Bilirubin 0.27 AST 21 ALT 23 Alkaline Phosphatase 61 Total Protein 7.1 Albumin 4.3 Globulin 2.8 Albumin/Globulin Ratio 1.5 Lipase 73 Serum , Qual NEGATIVE Treatment and Re-Evaluation :: Patient was reassessed at 2022. Patient reports marked improvement. She has no discomfort in the epigastrium after GI cocktail and IV Pepcid. If CBC is normal plan is discharge to home with PPI. Discharge Plan Triage Chief Complaint: Abd Pain ED Provider: KaranAvi Dx/Rx/DC Orders Clinical Impression: Acute epigastric pain, History of Liborio-en-Y gastric bypass, Nausea & vomiting Instructions: ED Epigastric Pain Uncertain Cause Prescriptions: New omeprazole 40 mg capsule,delayed release(DR/EC) 40 mg PO DAILY Qty: 30 0RF No Action multivitamin Tablet 1 tab PO DAILY Primary Care Provider: Karlee Dodson Referrals: Karlee Dodson DO [Primary Care Provider] - 1-2 Weeks Activity Restrictions/Additional Instructions: 1. Return if you have black or maroon-colored stool or vomit what appears to be coffee-ground appearing liquid. Print Language: Bulgarian Disposition Disposition: Home, Self Care
[2025-01-27 21:06] LABS: Absolute Lymphocyte Count 2.46 X10^3/uL (0.83-4.51); Absolute Neutrophil Count 2.1 X10^3/uL (2.0-7.7); Basophil# 0.03 X10^3/uL; Basophil% 0.6 % (0-1); Eosinophil# 0.29 X10^3/uL; Eosinophils% 5.7 % (0-5); Hematocrit 40.2 % (37-47); Hemoglobin 13.4 g/dL (12.0-15.0); Lymphocyte # 2.46 X10^3/ul (0.83-4.51); Lymphocyte % 48.2 % (19-41); Mean Corp Hgb Conc 33.3 g/dL (32-36); Mean Corpuscular Volume 90.1 fL (81-99); Monocyte# 0.25 X10^3/uL; Monocyte% 4.9 % (0-10); NRBC Flagged by Analyzer 0 % (0-5); Neutrophil # 2.05 X10^3/uL (2.7-7.7); Neutrophil % 40.2 % (47-70); POSITIVE MORPHOLOGY YES; RBC Distribution Width SD 42.8 fl (35.1-43.9); Red Blood Count 4.46 M/mm3 (4.2-5.4); White Blood Count 5.1 K/mm3 (4.4-11.0)
[2025-01-27 21:10] LABS: Differential Indicated SCAN CRITERIA MET
[2025-01-27 21:14] LABS: Platelet Estimate ADEQUATE (ADEQ)
[2025-01-27 21:15] LABS: Differential Comment SCANNED
[2025-01-27 21:19] VITALS: BP 121/91; PULSE 64; RESP 16; TEMP 36.6; O2SAT 100
== END 2025-01-27 21:23 | disposition home or self-care (01) ==
PROVIDERS: Emergency Provider Emergency Medicine; PCP Family Medicine; Visit Provider Emergency Medicine
DX: R10.13 Epigastric pain (principal); R11.2 Nausea with vomiting, unspecified; M54.9 Dorsalgia, unspecified; K21.9 Gastro-esophageal reflux disease without esophagitis; J45.909 Unspecified asthma, uncomplicated; Z98.84 Bariatric surgery status
CPT/HCPCS: 80053; 83690; 84703; 85025; 96374; 99284; A4216

== ENCOUNTER 2025-07-09 06:20 | Emergency (ER) | payer OTHER, SELFPAY ==
[2025-07-09] VITALS (8 sets, daily range): BP systolic 92–134; BP diastolic 68–93; PULSE 64–87; RESP 12–20; TEMP 36.4–36.6; O2SAT 99–100; BMI 33.3
--- NOTE | 2025-07-09 06:26 | CT_ITS ---
PROCEDURE: BRAIN/HEAD WITHOUT CONTRAST 07/09/2025 REASON FOR EXAM: SYNCOPE RECENT SURGERY CHIARI DEFECT TECHNIQUE: Procedure Code: CTBR Modality: CT Procedure: BRAIN/HEAD WITHOUT CONTRAST Coronal and Sagittal reconstruction series were provided. One or more dose reduction techniques were used (e.g., Automated exposure control, adjustment of the mA and/or kV according to patient size, use of iterative reconstruction technique. RADIATION DOSE SUMMARY: CTDlvol: 14.56 mGy DLP: 1252.47 mGycm COMPARISON: Brain MRI 09/14/2021. FINDINGS: Brain: No acute territorial infarction. No acute intracranial hemorrhage. No mass-effect or midline shift. CSF Spaces: Normal Sinuses/Mastoids: Clear at visualized levels Bones: Status post suboccipital craniectomy. No acute bony abnormalities. CT/Brain/Head without Contrast IMPRESSION: No acute intracranial abnormalities. MRI brain may provide better evaluation i f clinically warranted. Reading Location: [id number]
--- NOTE | 2025-07-09 06:26 | CT_ITS ---
PROCEDURE: CTA CHEST W/WO CONTRAST 07/09/2025 REASON FOR EXAM: SYNCOPE RECENT SURGERY TECHNIQUE: Procedure Code: [id number] Modality: CT Procedure: CTA CHEST W/WO CONTRAST Multiplanar Sagittal and Coronal images were obtained. CONTRAST: Isovue 370 VOLUME: 100 mL One or more dose reduction techniques were used (e.g., Automated exposure control, adjustment of the mA and/or kV according to patient size, use of iterative reconstruction technique). RADIATION DOSE SUMMARY: CTDlvol: 456.35 mGy DLP: 796.11 mGycm COMPARISON: None. # of known CTs in the past 12 months: 0 # of known Cardiac Nuclear Medicine Studies in the past 12 months: 0 FINDINGS: Thoracic Aorta: Unremarkable without aneurysm. Heart: No cardiomegaly Pulmonary Vessels: No aneurysm. Hardware: None. Lymph nodes: No lymphadenopathy Lungs and Airways: Clear. No pleural effusion or pneumothorax. Pleura: No pleural effusion or pneumothorax. Upper Abdomen: No acute findings. Bones: No acute bony abnormalities. CT/CTA Chest W/WO Contrast IMPRESSION: No evidence of pulmonary embolism. No acute chest abnormalities. Reading Location: [facility]
--- NOTE | 2025-07-09 06:28 | EKG12_ITS ---
Test Reason : SYNCOPE Blood Pressure : */* mmHG Vent. Rate : 71 BPM Atrial Rate : 71 BPM P-R Int : 154 ms QRS Dur : 78 ms QT Int : 402 ms P-R-T Axes : 57 28 47 degrees QTcB Int : 436 ms Normal sinus rhythm with sinus arrhythmia Normal ECG When compared with ECG of 26-Jul-2021 12:13, Nonspecific T wave abnormality now evident in Anterior leads Confirmed by Faisal Arellano ([id number]), department editor CRESENCIO MUELLER ([id number]) on 07/14/2025 8:36:35 AM Referred By: Confirmed By: Faisal Arellano
--- NOTE | 2025-07-09 06:39 | RAD_ITS ---
PROCEDURE: CHEST 1 VIEW (PORTABLE) 07/09/2025 REASON FOR EXAM: CHEST PAIN TECHNIQUE: Frontal view of the chest. COMPARISON: CT scan on 07/09/2025. FINDINGS: The lungs are expanded. There is no demonstrated parenchymal abnormality. There is no demonstrated pleural abnormality. Normal heart and pericardium. Normal mediastinum and curtis. Normal visualized pulmonary arteries. Normal visualized aortic arch and descending thoracic aorta. Normal visualized thoracic spine. Normal visualized ribs, clavicles, and shoulders. There is no demonstrated abnormality of the visualized soft tissue structures of the upper abdomen. RAD/Chest 1 View (Portable) IMPRESSION: No evidence for acute abnormality. Reading Location: [facility]
[2025-07-09] MEDS: 0.9% Normal Saline (1000mL) 1,000 ML 1000 ML IV (06:41)
[2025-07-09 06:55] LABS: Hematocrit 37.3 % (37-47); Hemoglobin 12.5 g/dL (12.0-15.0); Immature Granulocytes Count 0.010 X10^3/uL (0.0-0.0); Mean Corp Hgb Conc 33.5 g/dL (32-36); Mean Corpuscular Volume 90.8 fL (81-99); Mean Platelet Vol. 12.9 fl (6.2-12.0); NRBC Flagged by Analyzer 0 % (0-5); Platelet Count 120 K/mm3 (150-450); RBC Distribution Width CV 12.7 % (11.6-14.6); RBC Distribution Width SD 42.1 fl (35.1-43.9); Red Blood Count 4.11 M/mm3 (4.2-5.4); White Blood Count 5.9 K/mm3 (4.4-11.0)
[2025-07-09 07:00] LABS: Internal QC Validated? YES +Cl - CLEAR BKGD; Record Kit Lot#, Serum Preg. 0000980607
[2025-07-09 07:02] LABS: Pregnancy, Serum, hCG Quali. NEGATIVE Negative
[2025-07-09 07:04] LABS: Prothrombin Time (Protime)PT. 13.4 SECONDS (11.7-14.9)
[2025-07-09 07:05] LABS: Partial Thromboplast Time 22.6 Seconds (24.1-36.2)
[2025-07-09 07:12] LABS: Troponin T High Sensitivity < 6 ng/L (<=14)
[2025-07-09 07:13] LABS: AST(SGOT) 21 U/L (<=31); Alanine Aminotransfer ALT/SGPT 18 U/L (<=34); Albumin, Serum 3.8 g/dL (3.5-5.0); Alkaline Phosphatase 51 U/L (35-104); Anion Gap 10 (5-15); BUN 13 mg/dL (4-19); BUN/Creat Ratio 14.7 RATIO (10-20); Calcium,Total 9.1 mg/dL (7.6-11.0); Carbon Dioxide 26.3 mmol/L (21.0-32.0); Chloride 104 mmol/L (98-108); Estimated Creatinine Clearance 101.76 ml/min (50-250); Globulin 2.9 g/dL (2.2-4.2); Glucose 110 mg/dL (70-99); Potassium 3.8 mmol/L (3.3-5.1)
--- OUTSIDE RECORDS SUMMARY | 2025-07-09 07:30 | XMS RPT_ITS | CCD ---
Author Organization [facility] Care Team Providers Care Entry Level Web Developer Name Role Phone Lily SOLID WASTE MANAGEMENT ENGINEER - Steven GOODMAN Primary Care Provider [phone] PROVIDER, UNKNOWN Referring Unavailable Lily, Steven Primary Care Unavailable OBDULIA GARCIA Attending Unavailable PROVIDER, UNKNOWN Referring Unavailable Lily, Steven Primary Care Unavailable OBDULIA GARCIA Attending Unavailable PROVIDER, UNKNOWN Referring Unavailable Lily, Steevn Primary Care Unavailable Rakesh Salazar Attending Unavailable OBDULIA GARCIA Attending Unavailable PROVIDER, UNKNOWN Referring Unavailable PROVIDER, UNKNOWN Referring Unavailable Lily, Steven Primary Care Unavailable Rakesh Salazar Attending Unavailable Lily, Steven Primary Care Unavailable PROVIDER, UNKNOWN Referring Unavailable Rakesh Salazar Attending Unavailable Steven Rashid CNP Primary Care Provider [phone] Steven Rashid Primary Care Provider Rakesh Salazar MD Unavailable STEVEN RASHID Attending Unavailable RAKESH SALAZAR Referring Unavailable LILY, STEVEN Primary Care Unavailable Steven Rashid Primary Care Provider [phone] Rakesh Salazar MD Unavailable Izabela Rivero MD Primary Care Provider Izabela Rivero MD Primary Care Provider Lily SOLID WASTE MANAGEMENT ENGINEERSteven MULLEN Primary Care Provider [phone] FAITH TAYLOR Referring Unavailable FAITH TAYLOR Attending Unavailable IZABELA RIVERO Primary Care Unavailab Steven Croft CNP Primary Care Provider [phone] IZABELA RIVERO Primary Care Unavailab TRANG Phillips Attending Unavailabl e RIVERO, IZABELA MARLEY Primary Care Unavailab le HASSMANN II, ADRIAN SLATER Attending Un available RIVERO, IZABELA MARLEY Primary Care Unavailab le HASSMANN II, ADRIAN SLATER Referring Un available HASSMANN II, ADRIAN SLATER Admitting Un available TRANG CASTILLO Referring Unavailabl e RIVERO, IZABELA MARLEY Primary Care Unavailab FAITH Savage Attending Unavailable TRANG CASTILLO Admitting Unavailabl e RIVERO, IZABELA MARLEY Primary Care Unavailab SUDHA Broderick Attending Unava ilable STEVEN RASHID Primary Care Unavailable DIANA QUARLES Attending Unavailable RIVERO, IZABELA MARLEY Primary Care Unavailab ZARIA Garcia Attending Unavailable RIVERO, IZABELA MARLEY Primary Care Unavailab le RIVERO, IZABELA MARLEY Primary Care Unavailab le HASSMANN II, ADRIAN SLATER Attending Un available RIVERO, IZABELA MARLEY Primary Care Unavailab le HASSMANN II, ADRIAN SLATER Referring Un available HASSMANN II, ADRIAN SLATER Admitting Un available RIVERO, IZABELA MARLEY Primary Care Unavailab le HASSMANN II, ADRIAN SLATER Attending Un available RIVERO, IZABELA MARLEY Primary Care Unavailab le HASSMANN II, ADRIAN SLATER Referring Un available HASSMANN II, ADRIAN SLATER Admitting Un available RIVERO, IZABELA MARLEY Primary Care Unavailab le HASSMANN II, ADRIAN SLATER Referring Un available HASSMANN II, ADRIAN SLATER Admitting Un available RIVERO, IZABELA MARLEY Primary Care Unavailab le RIVERO, IZABELA MARLEY Attending Unavailab le RIVERO, IZABELA MARLEY Primary Care Unavailab STARR Flowers Attending Unavailable RIVERO, IZABELA MARLEY Primary Care Unavailab MARBIN Alegria Attending Unavaila ble RIVERO, IZABELA MARLEY Primary Care Unavailab SUDHA Broderick Attending Unava ilable Martin CHINCHILLA, Rakesh Echevarria Unavailable [phone] АЛЕКСАНДР MICHAUD Attending Unavailable RIVERO, IZABELA MARLEY Primary Care Unavailab FAITH Savage Attending Unavailable FAITH TAYLOR Referring Unavailable RIVERO, IZABELA MARLEY Primary Care Unavailab le BALTES, STEVEN Admitting Unavailable BALTES, STEVEN Primary Care Unavailable BALTES, STEVEN Admitting Unavailable RIVERO, IZABELA MARLEY Primary Care Unavailab le RIVERO, IZABELA MARLEY Primary Care Unavailab MARIA ELENA Elias Attending Unavailable RIVERO, IZABELA MARLEY Primary Care Unavailab BIANKA Foote Attending Unavailabl e RIVERO, IZABELA MARLEY Primary Care Unavailab le Baltes HIDE CURER, Steven Primary Care Provider Flakita ACOSTA, Cem Cedeno Primary Care Provider [phone] Flakita ACOSTA, Cem Cedeno Primary Care Provider Flakita ACOSTA, Dr. Desir Primary Care Provider Dr. Avi Russo MD Emergency Provider [phone] Sheets, Cem Primary Care Unavailable Avi Russo Attending Unavailable Sheets, Cem Primary Care Unavailable Artis Valdovinos Attending Unavailable FLAKITA, CEM Cedeno Attending Unavailable FLAKITA, CEM C Primary Care Unavailable ASPEN MARTINEZ Referring Unavailab le BALTES, STEVEN Primary Care Unavailable ASPEN MARTINEZ Referring Unavailab le BALTES, STEVEN Primary Care Unavailable ASPEN MARTINEZ Referring Unavailab le BALTES, STEVEN Primary Care Unavailable OBDULIA GARCIA Attending Unavailable SHEETS, CEM Primary Care Unavailable SHEETS, CEM Primary Care Unavailable OBDULIA GARCIA Attending Unavailable SHEETS, CEM Primary Care Unavailable SHEETS, CEM Referring Unavailable SEE VELASQUEZ Attending Unavailable SHEETS, CEM Primary Care Unavailable EDIE POWERS Attending Unavailable FLAKITA, CEM Primary Care Unavailable SEE VELASQUEZ Attending Unavailable SEE VELASQUEZ Referring Unavailable SHEETS, CEM Primary Care Unavailable OBDULIA GARCIA Attending Unavailable ASPEN MARTINEZ Attending Unavailab le SHEETS, CEM C Primary Care Unavailable SHEETS, CEM C Referring Unavailable SHEETS, CEM C Primary Care Unavailable SHEETS, CEM C Primary Care Unavailable DANIEL OLIVO Attending Unavailable SHEETS, CEM C Primary Care Unavailable RICKIE SANCHEZ Attending Unavaila ble SHASTA YUEN Referring Unavailable SHEETS, CEM C Primary Care Unavailable SHEETS, CEM C Primary Care Unavailable SHEETS, CEM C Primary Care Unavailable MELLORS, BECKY Referring Unavailable SHEETS, CEM C Primary Care Unavailable MELLORS, BECKY Referring Unavailable SHEETS, CEM C Primary Care Unavailable MELLORS, BECKY Referring Unavailable SHEETS, CEM C Primary Care Unavailable MELLORS, BECKY Referring Unavailable SHEETS, CEM C Primary Care Unavailable RICKIE SANCHEZ Referring Unavaila ble SHEETS, CEM C Primary Care Unavailable SHEETS, CEM C Primary Care Unavailable SHASTA YUEN Referring Unavailable SHEETS, CEM C Primary Care Unavailable SHASTA YUEN Attending Unavailable SHEETS, CEM C Primary Care Unavailable RICKIE SANCHEZ Admitting Unavaila ble RICKIE SANCHEZ Attending Unavaila ble SHEETS, CEM C Primary Care Unavailable SHEETS, CEM C Primary Care Unavailable Allergies Allergy Classification Reported Allergen(s) Allergy Type Date of Onset Reaction(s) Facility fluocinolone (3 sources) fluocinolone Drug Allergy 4 Anaphylaxis [facility] [place] Penicillins (antibiotic) (3 sources) Amoxicillin Drug Allergy 4 [facility] (20 sources) Amoxicillin; Translations: [AMOXICILLIN] Drug Allergy 4 [facility] (20 sources) fluocinolone; Translations: [FLUOCINOLONE] Drug Allergy 4 [facility] Work Phone: (20 sources) Fluocinolone acetonide Allergy to substance 4 Anaphylaxis [facility] (1 source) Amoxicillin Drug Allergy 5 [facility] Repository Medications Current Medications Medication Drug Class(es) Dates Sig (Normalized) Sig (Original) [id number] 200 actuat albuterol 0.09 mg/actuat metered dose inhaler (20 sources) beta2-Adrenergic Agonist Start: 03-11-2024 take 2 puff(s) by inhalation every four hours as needed albuterol 108 (90 Base) MCG/ACT inhaler Inhale 2 puffs every 4 hours as needed. 03/11/2024 Active Start: 11-22-2022 End: 11-22-2022 albuterol (2.5 MG/3ML) 0.083 % nebulizer solution 2.5 mg Start: 11-22-2022 End: 11-22-2022 albuterol (2.5 MG/3ML) 0.083 % nebulizer solution 2.5 mg Start: 12-22-2014 End: 03-11-2024 albuterol HFA (PROVENTIL HFA , VENTOLIN HFA) 90 mcg/actuation inhaler Inhale as instructed. 0 12/22/2014 03/11/2024 Discontinued Comment on above: Inhale as instructed . ARIPiprazole 2 mg oral tablet (20 sources) Atypical Antipsychotic Start: 04-09-20 take 1 tablet by mouth once ARIPiprazole (ABILIFY) 2 mg tablet Take 1 tablet by mouth every afternoon. 04/09/2024 Active Start: 11-22-2022 End: 02-22-2023 take 2 mg by mouth once daily 2 mg, Oral, Daily, First dose on Nancy 11/22/22 at 0900, Phase II/On Unit Start: 02-15-2021 End: 03-04-2024 take 1 tablet by mouth once daily Aripiprazole 5 mg tablet Discontinued 5 mg PO DAILY March 08, 2021 12:00am March 04, 2024 4:35am Start: 02-15-2021 End: 08-16-2023 ARIPiprazole (ABILIFY) 5 MG tablet Take 2 mg by mouth . 0 02/15/2021 08/16/2023 Discontinued (Patient's Request) biotin 5 mg oral tablet (20 sources) take 1 tablet by alexandro th at bedtime biotin 5000 MCG tablet Take 5,000 mcg by mouth before bedtime. Active take 1 capsule by mouth once eduar ly Biotin 10,000 mcg cap Take 1 capsule by mouth once daily. Active biotin 2,500 mcg cap Take 1 (one) capsule (2,500 mcg total) by mouth daily Twice daily . 0 Active biotin 2,500 mcg cap Take by mouth Twice daily . 0 Active Calcium Carbonate (20 sources) take 1 tablet by alexandro th three times daily calcium carbonate (CALCIUM 600 ORAL) Take 1 tablet by mouth three times a day. Active take 1 tablet by mouth three sheryl es daily calcium carbonate (CALCIUM 600 ORAL) Take 1 tablet by mouth three times a day. 0 Active calcium citrate 500 mg oral tablet (20 sources) Start: 11-27-2022 take 500 mg by mouth three times daily CALCIUM CITRATE PO Take 500 mg by mouth 3 times daily. 11/27/2022 Active take 1 tablet by mouth once armida y calcium citrate (CALCITRATE) 200 mg (950 mg) tablet Take 1 (one) tablet (950 mg total) by mouth daily . 0 Active calcium citrate 0.415 mg/mg / cholecalciferol 0.1 unt/mg oral powder (8 sources) Vitamin D Start: 11-27-2022 End: 08-16-2023 take 500 mg by mouth three times daily calcium citrate-vitamin D3 500 mg-12.5 mcg /5 gram Powd Take 500 mg by mouth 3 (three) times a day . 0 11/27/2022 08/16/2023 Discontinued cholecalciferol 0.1 mg oral capsule (20 sources) Vitamin D Start: 02-22-2023 take 38-38.9 capsules by mouth once daily cholecalciferol (Vitamin D-3) 100 MCG (4000 UT) capsule Indications: Intestinal malabsorption, unspecified type (HHS/HCC) , Deficiency of multiple nutrient elements , Class 2 obesity due to excess calories without serious comorbidity with body mass index (BMI) of 38.0 to 38.9 in adult Take 1 capsule (100 mcg) by mouth daily. 30 capsule 11 02/22/2023 Active Start: 11-27-2022 End: 02-22-2023 take 1 tablet by mouth once daily cholecalciferol (Vitamin D-3) 100 MCG (4000 UT) tablet Take 4,000 Units by mouth daily. 0 11/27/2022 02/22/2023 Discontinued take 1 tablet by alexandro th once daily cholecalciferol (VITAMIN D-3) 50 mcg (2,000 unit) tablet Take 1,000 Units by mouth once daily. Active take 1 tablet by alexandro th once daily cholecalciferol (VITAMIN D-3) 50 mcg (2,000 unit) tablet Take 2,000 Units by mouth once daily. 0 Active take 1 capsule by mo uth once daily cholecalciferol, vitamin D3, (Vitamin D3) 25 mcg (1,000 unit) capsule Take 1 (one) capsule (1,000 Units total) by mouth daily . 0 Active End: 11-27-2022 Cholecalciferol (VITAMIN D3 PO) Take 4,000 Int'l Units by mouth before bedtime. 0 11/27/2022 Discontinued Cholecalciferol (VITAMIN D3 PO) Take 4,000 Int'l Units by mouth before bedtime. 0 Suspended Cholecalciferol (VITAMIN D3 PO) Take 4,000 Int'l Units by mouth before bedtime. 0 Active cholecalciferol, vitamin D3, (cholecalciferol, vit D3,,bulk,) 100,000 unit/gram Powd (10 sources) End: 08-16-2023 cholecalciferol, vitamin D3, (cholecalciferol, vit D3,,bulk,) 100,000 unit/gram Powd Take 4,000 Int'l Units by mouth daily . 0 08/16/2023 Discontinued cholecalciferol, vitamin D3, (cholecalciferol, vit D3,,bulk,) 100,000 unit/gram Powd Take 4,000 Int'l Units by mouth daily . 0 Active cyclobenzaprine hydrochloride 5 mg oral tablet (1 source) Muscle Relaxant Start: 04-18-2023 End: 04-28-2023 take 1 tablet by mouth three times daily as needed for muscle spasms cyclobenzaprine (FLEXERIL) 5 MG tablet Indications: Acute left-sided low back pain without sciatica Take 1 (one) tablet (5 mg total) by mouth 3 (three) times a day as needed for muscle spasms . 30 tablet 0 04/18/2023 04/28/2023 Active 1 ml galcanezumab-gnlm 120 mg/ml auto-injector (20 sources) Start: 09-11-2024 End: 02-22-2025 galcanezumab-gnlm (EMGALITY PEN) 120 mg/mL pen Indications: Migraine with aura and without status migrainosus, not intractable Inject 2 pens (240 mg) under the skin 1 time only for initial loading dose. Refrigerate. Do not shake. 2 Each 09/28/2024 2:13 PM EST 09/11/2024 02/22/2025 Discontinued (Discontinued by Patient) Start: 01-21-2024 End: 09-11-2024 inject 1 mL by subcutaneous injection every month in the evening galcanezumab-gnlm (EMGALITY PEN) 120 mg/mL pen Indications: Migraine with aura and without status migrainosus, not intractable Inject 1 mL subcutaneously once every month. Do not shake. 1 Each 02/12/2025 3:37 PM EDT 09/11/2024 Active Start: 01-21-2024 End: 04-13-2024 galcanezumab-gnlm (EMGALITY PEN) 120 mg/mL pen Inject 2 pens (240 mg) under the skin 1 time only for initial loading dose. Refrigerate. Do not shake. 2 Each 0 01/21/2024 04/13/2024 Discontinued (Other) hydrOXYzine pamoate 25 mg oral capsule (20 sources) Antihistamine Start: 02-14-2022 End: 02-22-2025 hydrOXYzine pamoate (VISTARIL) 25 MG capsule Take 25 mg by mouth as needed 0 02/14/2022 Active Start: 07-26-2021 End: 03-04-2024 hydrOXYzine (VISTARIL) 25 MG capsule Take 2 (two) capsules (50 mg total) by mouth . 0 07/26/2021 Active Start: 07-26-2021 take 50 mg by mouth at bedtime Hydroxyzine Pamoate Active 50 MG PO AT BEDTIME July 26, 2021 1:00am Magnesium (20 sources) take 1 tablet by once daily Magnesium 250 mg tab Take 250 mg by mouth once daily. Active take 1 tablet by mouth once armida y Magnesium 250 mg tab Take 250 mg by mouth once daily. 0 Active magnesium gluconate 550 mg oral tablet (2 sources) Start: 09-22-2021 take 30 mg by mouth once daily Magnesium Active 30 MG PO DAILY September 22, 2021 11:31am magnesium oxide 500 mg oral capsule (20 sources) Magnesium 500 MG capsule Take by mouth Nightly. Active 1 ml medroxyPROGESTERone acetate 150 mg/ml injection (20 sources) Progestin Start: 01-21-2025 End: 12-23-2025 medroxyPROGESTERone 150 mg injection (DEPO-PROVERA) Start: 01-21-2025 End: 12-23-2025 150 mg, INTRAMUSCULAR, EVERY 12 WEEKS, 4 doses, First dose on Sat01/21/25 at 1600, Last dose on Nancy 09/30/25 at 1600, Hazardous Potential Reproductive Risk Drug: Use appropriate PPE. Start: 02-19-2024 End: 01-20-2025 150 mg, INTRAMUSCULAR, EVERY 12 WEEKS, 4 doses, First dose on 02/19/24 at 1530, Last dose on Sat10/28/24 at 1530, Hazardous Potential Reproductive Risk Drug: Use appropriate PPE. Start: 02-19-2024 End: 01-20-2025 medroxyPROGESTERone 150 mg i njection (DEPO-PROVERA) Start: 02-19-2024 End: 01-20-2025 medroxyPROGESTERone (Depo-Pr overa) 150 MG/ML suspension prefilled syringe injection syringe Inject 150 mg into the shoulder, thigh, or buttocks. 02/19/2024 Active Start: 02-19-2024 End: 02-22-2025 medroxyPROGESTERone (DEPO-CA OVERA) 150 mg/mL injection Inject 1 mL intramuscularly every 12 weeks. 1 mL 4 02/22/2025 Active Start: 08-07-2023 End: 08-07-2023 medroxyPROGESTERone (DEPO-CA OVERA) injection 150 mg Start: 08-07-2023 End: 08-07-2023 medroxyPROGESTERone (DEPO-CA OVERA) injection 150 mg Start: 01-07-2023 End: 01-07-2023 medroxyPROGESTERone (DEPO-CA OVERA) injection 150 mg Start: 01-07-2023 End: 01-07-2023 medroxyPROGESTERone (DEPO-CA OVERA) injection 150 mg Start: 01-07-2023 End: 01-07-2023 medroxyPROGESTERone (DEPO-CA OVERA) injection 150 mg Start: 01-07-2023 End: 01-07-2023 medroxyPROGESTERone (DEPO-CA OVERA) injection 150 mg Start: 01-07-2023 End: 01-07-2023 medroxyPROGESTERone (DEPO-CA OVERA) injection 150 mg Start: 11-01-2022 End: 11-01-2022 medroxyPROGESTERone (DEPO-CA OVERA) injection 150 mg Start: 11-01-2022 End: 11-01-2022 medroxyPROGESTERone (DEPO-CA OVERA) injection 150 mg Start: 08-02-2022 End: 08-02-2022 medroxyPROGESTERone (DEPO-CA OVERA) injection 150 mg Start: 08-02-2022 End: 08-02-2022 medroxyPROGESTERone (DEPO-CA OVERA) injection 150 mg metroNIDAZOLE 500 mg oral tablet (1 source) Nitroimidazole Antimicrobial Start: 08-08-2023 End: 08-16-2023 take 1 tablet by mouth twice daily at mealtime metroNIDAZOLE (FLAGYL) 500 MG tablet Indications: Bacterial vaginosis Take 1 (one) tablet (500 mg total) by mouth 2 (two) times a day with meals for 7 days . 14 tablet 0 08/08/2023 08/16/2023 Discontinued Multiple Vitamins-Minerals (CENTRUM WOMEN PO) (20 sources) take 2 tablets by mouth at bedtime Multiple Vitamins-Minerals (CENTRUM WOMEN PO) Take 2 tablets by mouth before bedtime. With Iron . Active take 2 tablets by mo uth at bedtime Multiple Vitamins-Minerals (CENTRUM WOMEN PO) Take 2 tablets by mouth before bedtime. With Iron . 0 Active End: 11-27-2022 take 1 tablet by mouth at bedtime Multiple Vitamins-Minerals (CENTRUM WOMEN PO) Take 1 tablet by mouth before bedtime. 0 11/27/2022 Discontinued take 1 tablet by alexandro th at bedtime Multiple Vitamins-Minerals (CENTRUM WOMEN PO) Take 1 tablet by mouth before bedtime. 0 Suspended take 1 tablet by alexandro th at bedtime Multiple Vitamins-Minerals (CENTRUM WOMEN PO) Take 1 tablet by mouth before bedtime. 0 Active Multivitamin preparation (1 source) Start: 03-23-2022 take 1 tablet by mouth once daily Multivitamin Active 1 TABLET PO DAILY March 23, 2022 12:00am Multivitamin Tablet (1 source) Start: 03-23-2022 Multivitamin T ablet Active 1 {tbl} PO DAILY March 23, 2022 12:00am mv-min/iron/folic/calciu m/vitK (WOMEN'S MULTIVITAMIN ORAL) (20 sources) take 2 tablets by mouth once daily mv-min/iron/folic/calci um/vitK (WOMEN'S MULTIVITAMIN ORAL) Take 2 tablets by mouth once daily. Active take 2 tablets by mo uth once daily mv-min/iron/folic/calcium/vitK (WOMEN'S MULTIVITAMIN ORAL) Take 2 tablets by mouth once daily. 0 Active Nirmatrelvir-Ritonavir (1 source) Start: 03-23-2022 Nirmatrelvir-Ritonavir (Paxlovid (Eua)) 300 mg (150 mg x 2)-100 mg tablets,dose pack Active 0 PO .COMPLEX March 23, 2022 12:00am take TWO 150 mg tablets of nirmatrelvir with ONE 100 mg tablet of ritonavir twice daily for 5 days omeprazole 40 mg delayed release oral capsule (20 sources) Proton Pump Inhibitor Start: 01-27-2025 take 1 capsule by mouth once daily Omeprazole 40 mg capsule,delayed release(DR/EC) Active 40 mg PO DAILY January 27, 2025 12:00am Start: 11-06-2022 End: 08-16-2023 take 1 capsule by mouth once daily omeprazole (PriLOSEC) [address] capsule Take 1 capsule (20 mg) by mouth daily. Do not crush or chew. 90 capsule 1 11/06/2022 06/21/2023 Discontinued (Therapy completed) pediatric multivitamin chewa ble tablet (8 sources) End: 08-16-2023 pediatric multivitamin chewa ble tablet Chew and Swallow 1 (one) tablet daily . 0 08/16/2023 Discontinued pediatric multiv itamin chewable tablet Chew and Swallow 1 (one) tablet daily . 0 Active Semaglutide-Weight Managemen t (Wegovy) 0.25 MG/0.5ML solution auto-injector (20 sources) Start: 05-05-2025 End: 06-30-2025 Semaglutide-Weight Managemen t (Wegovy) 0.25 MG/0.5ML solution auto-injector Indications: Class 1 obesity due to excess calories with serious comorbidity and body mass index (BMI) of 32.0 to 32.9 in adult Inject 0.5 mL (0.25 mg) under the skin every 7 days. 2 mL 1 05/05/2025 06/30/2025 Active Start: 03-29-2025 End: 05-05-2025 Semaglutide-Weight Managemen t (Wegovy) 0.25 MG/0.5ML solution auto-injector Indications: BMI 31.0-31.9,adult Inject 0.5 mL (0.25 mg) under the skin every 7 days. 2 mL 03/29/2025 05/05/2025 Discontinued (Reorder) Start: 02-17-2025 End: 03-19-2025 Semaglutide-Weight Managemen t (Wegovy) 0.25 MG/0.5ML solution auto-injector Indications: BMI 31.0-31.9,adult Inject 0.5 mL (0.25 mg) under the skin every 7 days. 2 mL 02/17/2025 03/19/2025 Active Start: 08-05-2024 End: 02-17-2025 Semaglutide-Weight Managemen t (Wegovy) 0.25 MG/0.5ML solution auto-injector Indications: BMI 29.0-29.9,adult Inject 0.5 mL (0.25 mg) under the skin every 7 days. 2 mL 08/05/2024 02/17/2025 Discontinued (Reorder) Start: 08-05-2024 Semaglutide-We ight Management (Wegovy) 0.25 MG/0.5ML solution auto-injector Indications: BMI 29.0-29.9,adult Inject 0.5 mL (0.25 mg) under the skin every 7 days. 2 mL 08/05/2024 Active Start: 08-05-2024 End: 09-04-2024 Semaglutide-Weight Managemen t (Wegovy) 0.25 MG/0.5ML solution auto-injector Indications: BMI 29.0-29.9,adult Inject 0.5 mL (0.25 mg) under the skin every 7 days. 2 mL 08/05/2024 09/04/2024 Active sertraline 25 mg oral tablet (20 sources) Serotonin Reuptake Inhibitor sertraline (Zoloft) 25 MG tablet Take by mouth daily. Active thiamine 50 mg oral tablet (20 sources) Start: take 1 tablet by mouth once daily thiamine (Vitamin B-1) 50 MG tablet Indications: Thiamine deficiency , Deficiency of multiple nutrient elements , Hx of gastric bypass Take 1 tablet by mouth once daily 90 tablet 3 02/25/2024 Active traZODone hydrochloride 50 mg oral tablet (20 sources) Serotonin Reuptake Inhibitor Start: 4 take 0.5 tablet by mouth once daily at bedtime as needed traZODone (DESYREL) 50 mg tablet TAKE 1/2 (ONE-HALF) TABLET BY MOUTH ONCE DAILY AT BEDTIME NEEDED 04/09/2024 Active Start: 03-15-2021 End: 11-22-2022 traZODone (Desyrel) 100 MG t ablet Take 100 mg by mouth. 0 03/15/2021 11/22/2022 Discontinued (Stop taking at discharge) traZODone (Desyr el) 50 MG tablet Take by mouth Nightly. Active ubrogepant 100 mg oral tablet (20 sources) Start: 08-30-2023 End: 09-11-2024 take 1 tablet by mouth every two hours as needed ubrogepant (UBRELVY) 100 mg tablet Indications: Migraine with aura and without status migrainosus, not intractable Take 1 tablet by mouth as needed (take at onset of migraine, repeat in 2 hours). 16 tablet 11 09/18/2024 1:16 PM EST 09/11/2024 Active Start: 08-30-2023 Ubrelvy 100 mg Tab Take 0.5 (one-half) tablet to 1 (one) tablet (50-100 mg total) by mouth as needed . 0 08/30/2023 Active Comment on above: Take 1/2 to1 tablet by mouth as needed (take at onset of migraine, repeat in 2 hours). Take 1/2 to1 tablet by mouth as needed at onset of migraine, repeat in 2 hours if needed. vitamin b12 0.5 mg sublingual tablet (20 sources) Vitamin B12 Start: 3 End: 3 take 1 tablet under the tongue once daily, then take 1 tablet under the tongue once daily Cyanocobalamin (B-12) 500 MCG sublingual tablet Indications: Intestinal malabsorption, unspecified type (HHS/HCC) , Deficiency of multiple nutrient elements , Class 2 obesity due to excess calories without serious comorbidity with body mass index (BMI) of 38.[address] 500 mcg under the tongue daily. Place 500 mcg under the tongue to dissolve once daily 30 tablet 11 02/22/2023 Active take 1 tablet by alexandro th every other week cyanocobalamin (VITAMIN B-12) 500 mcg ta blet Take 1 tablet by mouth every other week. Active take 1 tablet by mouth every wee k cyanocobalamin (VITAMIN B-12) 500 mcg tablet Take 1 tablet by mouth one time a week. 0 Active take 1 tablet by mouth every oth er day cyanocobalamin (B-12) 500 MCG tablet Take 1 (one) tablet (500 mcg total) by mouth every other day . 0 Active take 1 tablet by mouth once armida y cyanocobalamin (B-12) 500 MCG tablet Take 1 (one) tablet (500 mcg total) by mouth daily . 0 Active VITAMIN D, CHOLECALCIFEROL, PO (2 sources) VITAMIN D, MANJIT CALCIFEROL, PO Take 4,000 Int'l Units by mouth daily 0 Active Completed/Discontinued Medications Medication Drug Class(es) Dates Sig (Normalized) Sig (Original) acetaminophen 500 mg oral tablet (1 source) Start: 11-21-2022 End: 11-21-2022 acetaminophen (Tylenol) tablet 1,000 mg Acetaminophen / oxyCODONE (6 sources) Opioid Agonist Start: 11-22-2022 End: 11-22-2022 take 1 tablet by mouth every four hours as needed for pain oxyCODONE-acetamino phen (Percocet) 5-325 MG per tablet 1 tablet Start: 11-21-2022 End: 11-29-2022 take 1 tablet by mouth every six hours as needed for pain oxyCODONE-acetaminophen (Percocet) 5-325 MG tablet Indications: Morbid obesity with BMI of 45.0-49.9, adult (HCC) Take 1 tablet by mouth every 6 hours as needed for severe pain (7-10) for up to 7 days. 28 tablet 0 11/21/2022 11/29/2022 acetaZOLAMIDE 250 mg oral tablet (8 sources) Carbonic Anhydrase Inhibitor Start: 09-21-2021 End: 03-04-2024 take 1 tablet by mouth three times daily Acetazolamide 250 mg tablet Discontinued 1 {tbl} PO THREE TIMES A DAY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 Translations: [Imbalance] Onset: 01-29-2024 Episodic Other non-traumatic joint disorders (20 sources) Pain in unspecified knee; Translations: [Acute knee pain] Onset: 08-31-2024 08-31-2024 Episodic Other nutritional; endocrine; and metabolic disorders (2 sources) Personal history of other endocrine, nutritional and metabolic disease; Translations: [Personal history of other endocrine, nutritional and metabolic disease] Onset: 09-30-2024 Episodic Other screening for suspected conditions (not mental disorders or infectious disease) (20 sources) Creatinine level - finding; Translations: [Other specified abnormal findings of blood chemistry] Onset: 09-09-2023 Episodic Other skin disorders (2 sources) Excessive and redundant skin and subcutaneous tissue; Translations: [Excessive and redundant skin and subcutaneous tissue] Onset: 09-30-2024 Episodic Spondylosis; intervertebral disc disorders; other back problems (20 sources) Low back pain; Translations: [Low back pain] Onset: 08-31-2024 04-18-2023 Episodic Syncope (20 sources) Syncope; Translations: [Syncope and collapse] Onset: 08-16-2023 08-16-2023 Episodic Unclassified (1 source) Low back pain, unspecified; Translations: [Low back pain, unspecified] Onset: 04-18-2023 Unclassified (1 source) Obesity, class 1; Translations: [Obesity, class 1] Onset: 05-05-2025 Results Test Name Value Interpretation Reference Range Facility Basic metabolic 2000 panelon 07-08-2025 Anion gap [Moles/Vol] 9 mmol/L Normal 8-15 [facility] Comment on above: Order Comment: Speci men Type: BLOOD SPECIMENOrdering Facility: [facility] Address: [address] [place] [address] Performed By: #### 2 4321-2 ####[facility] LABCLIA [id number] [place] [address] [place] Calcium [Mass/Vol] 8.6 mg/dL Normal 8.5-10.2 [facility] Comment on above: Order Comment: Speci men Type: BLOOD SPECIMENOrdering Facility: [facility] Address: [address] [place] [address] Performed By: #### 2 4321-2 ####[facility] LABCLIA [id number] [place] [address] [place] Chloride [Moles/Vol] 106 mmol/L Normal 98-107 [facility] Comment on above: Order Comment: Speci men Type: BLOOD SPECIMENOrdering Facility: [facility] Address: [address] [place] [address] Performed By: #### 2 4321-2 ####[facility] LABCLIA [id number] [place] [address] [place] CO2 [Moles/Vol] 24 mmol/L Normal 22-30 [facility] Comment on above: Order Comment: Speci men Type: BLOOD SPECIMENOrdering Facility: [facility] Address: [address] [place] [address] Performed By: #### 2 4321-2 ####[facility] LABCLIA [id number] [place] [id number] [place] [facility] Creatinine [Mass/Vol] 0.66 mg/dL Normal 0.58-0.96 [facility] Comment on above: Order Comment: Speci men Type: BLOOD SPECIMENOrdering Facility: [facility] Address: [address] [place] [address] Performed By: #### 2 4321-2 ####[facility] LABCLIA [id number] [address] [place] eGFRcr SerPlBld CKD-EPI 2020 121 mL/min/1.73m??? Normal >=60 [facility] Comment on above: Order Comment: Speci men Type: BLOOD SPECIMENOrdering Facility: [facility] Address: [address] [place] [address] Result Comment: Angela mated Glomerular Filtration Rate (eGFR) is calculated using the 2020 CKD-EPI creatinine equation. This equation utilizes serum creatinine, sex, and age as parameters. The creatinine assay has traceable calibration to isotope dilution-mass spectrometry. Refer to KDIGO guidelines for clinical interpretation. In patients with unstable renal function, e.g. those with acute kidney injury, the eGFR may not accurately reflect actual GFR. Performed By: #### 2 4321-2 ####[facility] LABCLIA [id number] [place] [address] [place] Glucose [Mass/Vol] 91 mg/dL Normal 74-99 [facility] Comment on above: Order Comment: Speci men Type: BLOOD SPECIMENOrdering Facility: [facility] Address: [address] [place] [address] Result Comment: The [place] Diabetes Association (ADA) provides guidance for cutoff values for fasting glucose and random glucose. The ADA defines fasting as no caloric intake for at least 8 hours. Fasting plasma glucose results between 100 to 125 mg/dL indicate increased risk for diabetes (prediabetes). Fasting plasma glucose results greater than or equal to 126 mg/dL meet the criteria for diagnosis of diabetes. In the absence of unequivocal hyperglycemia, results should be confirmed by repeat testing. In a patient with classic symptoms of hyperglycemia or hyperglycemic crisis, random plasma glucose results greater than or equal to 200 mg/dL meet the criteria for diagnosis of diabetes. Reference: Standards of Medical Care in Diabetes 2016, [place] Diabetes Association. Diabetes Care. 2016.39(Suppl 1). Performed By: #### 2 4321-2 ####[facility] LABCLIA [id number] [place] [address] [place] Potassium [Moles/Vol] 3.8 mmol/L Normal 3.7-5.1 [facility] Comment on above: Order Comment: Speci men Type: BLOOD SPECIMENOrdering Facility: [facility] Address: [address] [place] [address] Performed By: #### 2 4321-2 ####[facility] LABCLIA [id number] [place] [address] [place] Sodium [Moles/Vol] 139 mmol/L Normal 136-144 [facility] Comment on above: Order Comment: Speci men Type: BLOOD SPECIMENOrdering Facility: [facility] Address: [address] [place] [address] Performed By: #### 2 4321-2 ####[facility] LABIA [id number] [place] [address] [place] Urea nitrogen [Mass/Vol] 12 mg/dL Normal 7-21 [facility] Comment on above: Order Comment: Speci men Type: BLOOD SPECIMENOrdering Facility: [facility] Address: [address] [place] [address] Performed By: #### 2 4321-2 ####[facility] LABCLIA [id number] [place] [address] [place] CBC W Auto Differential pane l (Bld)on 07-08-2025 Basophils (Bld) [#/Vol] 10*3/uL Normal <0.11 [facility] Comment on above: Order Comment: Speci men Type: BLOOD SPECIMENOrdering Facility: [facility] Address: [address] [place] [address] Performed By: #### 5 7021-8 ####[facility] LABCLIA [id number] [place] [address] [place] Basophils/100 WBC (Bld) 0.2 % Normal [facility] Comment on above: Order Comment: Speci men Type: BLOOD SPECIMENOrdering Facility: [facility] Address: [address] [place] [address] Performed By: #### 5 7021-8 ####[facility] LABCLIA [id number] [place] [address] [place] Differential cell count method Nom (Bld) Auto Normal [facility] Comment on above: Order Comment: Speci men Type: BLOOD SPECIMENOrdering Facility: [facility] Address: [address] [place] [address] Performed By: #### 5 7021-8 ####[facility] LABCLIA [id number] [place] [address] [place] Eosinophils (Bld) [#/Vol] 0.17 10*3/uL Normal <0.46 [facility] Comment on above: Order Comment: Speci men Type: BLOOD SPECIMENOrdering Facility: [facility] Address: [address] [place] [address] Performed By: #### 5 7021-8 ####[facility] LABCLIA [id number] [address] [place] Eosinophils/100 WBC (Bld) 3.0 % Normal [facility] Comment on above: Order Comment: Speci men Type: BLOOD SPECIMENOrdering Facility: [facility] Address: [address] [place] [address] Performed By: #### 5 7021-8 ####[facility] LABCLIA [id number] [place] [address] [place] Erythrocyte distribution width (RBC) [Ratio] 12.7 % Normal 11.5-15.0 [facility] Comment on above: Order Comment: Speci men Type: BLOOD SPECIMENOrdering Facility: [facility] Address: [address] [place] [address] Performed By: #### 5 7021-8 ####[facility] LABCLIA [id number] [place] [address] [place] Hematocrit (Bld) [Volume fraction] 35.3 % Low 36.0-46.0 [facility] Comment on above: Order Comment: Speci men Type: BLOOD SPECIMENOrdering Facility: [facility] Address: [address] [place] [address] Performed By: #### 5 7021-8 ####[facility] LABCLIA [id number] [place] [address] [place] Hemoglobin (Bld) [Mass/Vol] 11.6 g/dL Normal 11.5-15.5 [facility] Comment on above: Order Comment: Speci men Type: BLOOD SPECIMENOrdering Facility: [facility] Address: [address] [place] [address] Performed By: #### 5 7021-8 ####[facility] LABCLIA [id number] [place] [address] [place] Immature granulocytes (Bld) [#/Vol] 10*3/uL Normal <0.10 [facility] Comment on above: Order Comment: Speci men Type: BLOOD SPECIMENOrdering Facility: [facility] Address: [address] [place] [address] Performed By: #### 5 7021-8 ####[facility] LABCLIA [id number] [place] [address] [place] Immature granulocytes/100 WBC (Bld) 0.4 % Normal [facility] Comment on above: Order Comment: Speci men Type: BLOOD SPECIMENOrdering Facility: [facility] Address: [address] [place] [address] Performed By: #### 5 7021-8 ####[facility] LABCLIA [id number] [place] [address] [place] Lymphocytes (Bld) [#/Vol] 1.71 10*3/uL Normal 1.00-4.00 [facility] Comment on above: Order Comment: Speci men Type: BLOOD SPECIMENOrdering Facility: [facility] Address: [address] [place] [address] Performed By: #### 5 7021-8 ####[facility] LABCLIA [id number] [address] [place] Lymphocytes/100 WBC (Bld) 30.3 % Normal [facility] Comment on above: Order Comment: Speci men Type: BLOOD SPECIMENOrdering Facility: [facility] Address: [address] [place] [address] Performed By: #### 5 7021-8 ####[facility] LABCLIA [id number] [place] [address] [place] MCH (RBC) [Entitic mass] 30.1 pg Normal 26.0-34.0 [facility] Comment on above: Order Comment: Speci men Type: BLOOD SPECIMENOrdering Facility: [facility] Address: [address] [place] [address] Performed By: #### 5 7021-8 ####[facility] LABCLIA [id number] [address] [place] MCHC (RBC) [Mass/Vol] 32.9 g/dL Normal 30.5-36.0 [facility] Comment on above: Order Comment: Speci men Type: BLOOD SPECIMENOrdering Facility: [facility] Address: [address] [place] [address] Performed By: #### 5 7021-8 ####[facility] LABCLIA [id number] [address] [place] MCV (RBC) [Entitic vol] 91.7 fL Normal 80.0-100.0 [facility] Comment on above: Order Comment: Speci men Type: BLOOD SPECIMENOrdering Facility: [facility] Address: [address] [place] [address] Performed By: #### 5 7021-8 ####[facility] LABCLIA [id number] [place] [address] [place] Monocytes (Bld) [#/Vol] 0.34 10*3/uL Normal <0.87 [facility] Comment on above: Order Comment: Speci men Type: BLOOD SPECIMENOrdering Facility: [facility] Address: [address] [place] [address] Performed By: #### 5 7021-8 ####[facility] LABCLIA [id number] [place] [address] [place] Monocytes/100 WBC (Bld) 6.0 % Normal [facility] Comment on above: Order Comment: Speci men Type: BLOOD SPECIMENOrdering Facility: [facility] Address: [address] [place] [address] Performed By: #### 5 7021-8 ####[facility] LABCLIA [id number] [place] [address] [place] Neutrophils (Bld) [#/Vol] 3.40 10*3/uL Normal 1.45-7.50 [facility] Comment on above: Order Comment: Speci men Type: BLOOD SPECIMENOrdering Facility: [facility] Address: [address] [place] [address] Performed By: #### 5 7021-8 ####[facility] LABCLIA [id number] [place] [address] [place] Neutrophils/100 WBC (Bld) 60.1 % Normal [facility] Comment on above: Order Comment: Speci men Type: BLOOD SPECIMENOrdering Facility: [facility] Address: [address] [place] [address] Performed By: #### 5 7021-8 ####[facility] LABCLIA [id number] [place] [address] [place] Nucleated RBC (Bld) [#/Vol] 10*3/uL Normal <0.01 [facility] Comment on above: Order Comment: Speci men Type: BLOOD SPECIMENOrdering Facility: [facility] Address: [address] [place] [address] Performed By: #### 5 7021-8 ####[facility] LABCLIA [id number] [place] [address] [place] Nucleated RBC/100 WBC (Bld) [Ratio] 0.0 /100 WBC Normal [facility] Comment on above: Order Comment: Speci men Type: BLOOD SPECIMENOrdering Facility: [facility] Address: [address] [place] [address] Performed By: #### 5 7021-8 ####[facility] LABCLIA [id number] [place] [address] [place] Platelet mean volume (Bld) [Entitic vol] 13.0 fL High 9.0-12.7 [facility] Comment on above: Order Comment: Speci men Type: BLOOD SPECIMENOrdering Facility: [facility] Address: [address] [place] [address] Performed By: #### 5 7021-8 ####[facility] LABCLIA [id number] [place] [address] [place] Platelets (Bld) [#/Vol] 107 10*3/uL Low 150-400 [facility] Comment on above: Order Comment: Speci men Type: BLOOD SPECIMENOrdering Facility: [facility] Address: [address] [place] [address] Performed By: #### 5 7021-8 ####[facility] LABCLIA [id number] [place] [address] [place] RBC (Bld) [#/Vol] 3.85 10*6/uL Low 3.90-5.20 [facility] Comment on above: Order Comment: Speci men Type: BLOOD SPECIMENOrdering Facility: [facility] Address: [address] [place] [address] Performed By: #### 5 7021-8 ####[facility] LABCLIA [id number] [place] [address] [place] WBC (Bld) [#/Vol] 5.65 10*3/uL Normal 3.70-11.00 [facility] Comment on above: Order Comment: Speci men Type: BLOOD SPECIMENOrdering Facility: [facility] Address: [address] [place] [address] Performed By: #### 5 7021-8 ####[facility] LABCLIA [id number] [place] [id number] [place] THERAPY NTon 07-08-2025 THERAPY NT HNO ID: [id number] Author: ZENIA MCKEON OT/L Service: Occupational Therapy Author Type: Occupational Therapist Type: Therapy (PT/OT/Speech/Resp) Filed: 07/08/2025 15:48 Note Text: Occupational Therapy Treatment Summary SERVICE DATE: 07/08/2025 SERVICE TIME: 1509 to 1532 ROOM: [place] [address] OT 6 Clicks Score: 22 DISCHARGE RECOMMENDATIONS Home Recommended Discharge Disposition Comments: Anticipate safe d/c home with assist for IADLs. Anticipated Discharge Needs: Physical Assist at Home, Equipment Physical Assist at Home for: Cleaning, Laundry, Meals, Shopping, Transportation Recommended Discharge Equipment: Shower Chair ASSESSMENT Response to Therapy Interventions: Good Participation in Activities Pt received sitting EOB, anticipating discharge soon. OT assisted pt and mother with setting up new WW and educating pt on proper height. Pt verbalizes good understanding of post-op precautions and functional implications. Pt reports fluctuating dizziness/lightheadedne ss and pain impacting functional performance. No further acute OT needs identified at this time, will sign off. 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; hx of fall d/t syncope, likely migraine related; 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, +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 Baseline Cognition: Oriented to self, Oriented to place, Oriented to time, Oriented to situation SUBJECTIVE We were wondering how to set up the walker COGNITION Responsiveness: Alert, Awake Follows Commands: 3-step Commands Cog 6 Start of Session Total Points (Max Score = 24): 24 (07/08/25) Cog 6 End of Session Total Points (Max Score = 24): 24 (07/08/25) 4AT Score: 0 (07/08/25) Delirium Positive/Negative: Negative (07/08/25) THERAPY DIAGNOSIS Decreased activities of daily living (ADL) TREATMENT INTERVENTIONS Self Prison Management (52093) Skilled Treatment Time (minutes): 23 TRAINING AND EDUCATION PROVIDED Activity Adaptation/Compensatory Strategies, Assistive Device Use, Adaptive Equipment/DME, Expected Functional Level, Functional Mobility Involving ADLs, Lower Extremity Dressing, Precautions/Restriction s, Pain Management, Transfer - Sit to Stand, Transfer - Bed to Chair THERAPEUTIC SKILLS USED Assessment of Tolerance Including Vitals Response to Activity, Cuing Verbal, Cuing Visual, Therapeutic Use of Self, Teach-Back for Education, Physical Assist FUNCTIONAL STATUS Activities of Daily Living Assist Level Additional Information Feeding Independent Grooming Stand By Assistance Bathing Upper Body Stand By Assistance Bathing Lower Body Contact Guard Assistance Dressing Upper Body Stand By Assistance Dressing Lower Body Contact Guard Assistance Toileting Stand By Assistance Mobility Assist Level Additional Information Bed Mobility Sit to Stand Stand By Assistance Stand to Sit Stand By Assistance Bed to Chair Toilet/Commode Shower Functional Mobility Contact Guard Assistance Functional Mobility Device: Wheeled Walker GOALS Patient will demonstrate progress with self-care, cognitive and/or coping needs identified to allow safe discharge to home with available support and/or physical assistance. Rehab Potential: Excellent Progress Toward Goals: Progressing as expected ACUTE CARE TREATMENT PLAN OT Frequency: Discontinue Therapy Services Reasons Therapy Services Discontinued: Goals met Treatment Interventions: Education, Self Care/Home Management, Strengthening, Functional Mobility Training, Balance Training, Pain Management Plan for Next Visit: Continue per POC SIGNATURE: Zenia Mckeon OT/L PATIENT NAME: Jaya Hopson DATE: July 08, 2025 TIME: 3:48 PM Normal [facility] THERAPY NT HNO ID: [id number] Author: ARIANA MOONEY PT Service: Physical Therapy Author Type: Physical Therapist Type: Therapy (PT/OT/Speech/Resp) Filed: 07/08/2025 14:12 Note Text: Physical Therapy Treatment Summary SERVICE DATE: 07/08/2025 SERVICE TIME: 1336 to 1359 ROOM: [place] [address] PT 6 Clicks Score: 21 DISCHARGE RECOMMENDATIONS: Home PT Anticipated Discharge Needs: Physical Assist at Home Physical Assist at Home for: Cleaning, Laundry, Meals, Shopping, Transportation Recommended Discharge Equipment: Wheeled Walker ASSESSMENT Response to Therapy Interventions: Good Participation in Activities, Pain Patient demonstrating good overall performance in session this date with no adverse reactions noted. Pleasant and cooperative, motivated to mobilize. Reports 4-5/10 pain during session. Progressed ambulation distance and attempted stairs, completing at grossly CGA. Continues to be appropriate for Home PT. Will defer further therapy to next level of care 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 THERAPY DIAGNOSIS Reduced mobility-other TREATMENT INTERVENTIONS Therapeutic Activity (88096), Gait Training (11939) Timed Code Treatment (minutes): 23 Skilled Treatment Time (minutes): 23 TRAINING AND EDUCATION PROVIDED Anatomy and Impact on Deficits, Assistive Device Use, Bed Mobility, Benefits of In-Hospital Mobility, Discharge Planning, Energy Conservation, Exercise Program, Expected Functional Level, Falls Prevention, Gait Pattern, Reduction of Deviations, Home Safety, Patient Exercise/Therapy Program Support Needs, Positioning, Standing Balance, Transfers, Treatment Protocol, Role of Physical Therapy, Precautions/Restriction s, Stair Navigation, Modalities, Equipment THERAPEUTIC SKILLS USED Activity Dosing, Assessment of Tolerance Including Vitals Response to Activity, Cues for Sequencing/Proper Technique for Activity, Cuing Verbal, Cuing Visual, Movement Facilitation, Teach-Back for Education, Muscle Activation Facilitation, Postural Alignment Correction, Task Analysis Learning, Repetitive Task Learning FUNCTIONAL STATUS Bed Mobility Rolling: Stand By Assistance Supine To Sit: Stand By Assistance Scooting: Stand By Assistance Transfers Sit To Stand: Stand By Assistance Stand To Sit: Stand By Assistance Bed to Chair Contact Guard Assistance Bed To Chair Transfer Type: Stepping Bed To Chair Transfer Equipment: Wheeled Walker Gait Contact Guard Assistance Gait Device: Wheeled Walker General Deviations/Observations : Skylar decreased, Shuffling Gait, Step length decreased Gait Distance (feet): 115 ft x 1, 90 ft x 1, 25 ft x 1 Stairs Contact Guard Assistance Stairs Device: Rail, Hand Held Assist Number of Stairs: 10 GOALS Patient will demonstrate progress with functional mobility to allow safe discharge to home with available support and/or physical assistance. Rehab Potential: Good Progress Toward Goals: Progressing as expected ACUTE CARE TREATMENT PLAN PT Frequency: Discontinue Therapy Services Reasons Therapy Services Discontinued: Goals met Treatment Interventions: Self Care / Home Management, Education, Energy Conservation Training, Joint Mobility, Strengthening, Functional Mobility Training, Balance Training, Neuromuscular Re-education Plan for Next Visit: Gait Training, Stair Training SIGNATURE: Ariana Mooney PT, DPT PATIENT NAME: Jaya Hopson DATE: July 08, 2025 TIME: 2:11 PM Normal [facility] Basic metabolic 2000 panelon 07-07-2025 Anion gap [Moles/Vol] 10 mmol/L Normal 8-15 [facility] Comment on above: Order Comment: Speci men Type: BLOOD SPECIMENOrdering Facility: [facility] Address: [address] [place] [address] Performed By: #### 2 4321-2 ####[facility] LABCLIA [id number] [place] [address] [place] Calcium [Mass/Vol] 8.7 mg/dL Normal 8.5-10.2 [facility] Comment on above: Order Comment: Speci men Type: BLOOD SPECIMENOrdering Facility: [facility] Address: [address] [place] [address] Performed By: #### 2 4321-2 ####[facility] LABCLIA [id number] [place] [address] [place] Chloride [Moles/Vol] 104 mmol/L Normal 98-107 [facility] Comment on above: Order Comment: Speci men Type: BLOOD SPECIMENOrdering Facility: [facility] Address: [address] [place] [address] Performed By: #### 2 4321-2 ####[facility] LABCLIA [id number] [place] [address] [place] CO2 [Moles/Vol] 23 mmol/L Normal 22-30 [facility] Comment on above: Order Comment: Speci men Type: BLOOD SPECIMENOrdering Facility: [facility] Address: [address] [place] [address] Performed By: #### 2 4321-2 ####[facility] LABCLIA [id number] [place] [address] [place] Creatinine [Mass/Vol] 0.63 mg/dL Normal 0.58-0.96 [facility] Comment on above: Order Comment: Speci men Type: BLOOD SPECIMENOrdering Facility: [facility] Address: [address] [place] [address] Performed By: #### 2 4321-2 ####[facility] LABCLIA [id number] [place] [address] [place] eGFRcr SerPlBld CKD-EPI 2020 123 mL/min/1.73m??? Normal >=60 [facility] Comment on above: Order Comment: Speci men Type: BLOOD SPECIMENOrdering Facility: [facility] Address: [address] [place] [address] Result Comment: Angela mated Glomerular Filtration Rate (eGFR) is calculated using the 2020 CKD-EPI creatinine equation. This equation utilizes serum creatinine, sex, and age as parameters. The creatinine assay has traceable calibration to isotope dilution-mass spectrometry. Refer to KDIGO guidelines for clinical interpretation. In patients with unstable renal function, e.g. those with acute kidney injury, the eGFR may not accurately reflect actual GFR. Performed By: #### 2 4321-2 ####[facility] LABCLIA [id number] [place] [address] [place] Glucose [Mass/Vol] 97 mg/dL Normal 74-99 [facility] Comment on above: Order Comment: Speci men Type: BLOOD SPECIMENOrdering Facility: [facility] Address: [address] [place] [address] Result Comment: The [place] Diabetes Association (ADA) provides guidance for cutoff values for fasting glucose and random glucose. The ADA defines fasting as no caloric intake for at least 8 hours. Fasting plasma glucose results between 100 to 125 mg/dL indicate increased risk for diabetes (prediabetes). Fasting plasma glucose results greater than or equal to 126 mg/dL meet the criteria for diagnosis of diabetes. In the absence of unequivocal hyperglycemia, results should be confirmed by repeat testing. In a patient with classic symptoms of hyperglycemia or hyperglycemic crisis, random plasma glucose results greater than or equal to 200 mg/dL meet the criteria for diagnosis of diabetes. Reference: Standards of Medical Care in Diabetes 2016, [place] Diabetes Association. Diabetes Care. 2016.39(Suppl 1). Performed By: #### 2 4321-2 ####[facility] LABCLIA [id number] [place] [address] [place] Potassium [Moles/Vol] 4.0 mmol/L Normal 3.7-5.1 [facility] Comment on above: Order Comment: Ami peña Type: BLOOD SPECIMENOrdering Facility: [facility] Address: [address] [place] [address] Performed By: #### 2 4321-2 ####[facility] LABCLIA [id number] [place] [address] [place] Sodium [Moles/Vol] 137 mmol/L Normal 136-144 [facility] Comment on above: Order Comment: Ami men Type: BLOOD SPECIMENOrdering Facility: [facility] Address: [address] [place] [address] Performed By: #### 2 4321-2 ####[facility] LABCLIA [id number] [place] [address] [place] Urea nitrogen [Mass/Vol] 12 mg/dL Normal 7-21 [facility] Comment on above: Order Comment: Speci men Type: BLOOD SPECIMENOrdering Facility: [facility] Address: [address] [place] [address] Performed By: #### 2 4321-2 ####[facility] LABCLIA [id number] [place] [address] [place] CBC W Auto Differential pane l (Bld)on 07-07-2025 Basophils (Bld) [#/Vol] 10*3/uL Normal <0.11 [facility] Comment on above: Order Comment: Speci men Type: BLOOD SPECIMENOrdering Facility: [facility] Address: [address] [place] [address] Performed By: #### 5 7021-8 ####[facility] LABCLIA [id number] [place] [address] [place] Basophils/100 WBC (Bld) 0.3 % Normal [facility] Comment on above: Order Comment: Speci men Type: BLOOD SPECIMENOrdering Facility: [facility] Address: [address] [place] [address] Performed By: #### 5 7021-8 ####[facility] LABCLIA [id number] [place] [address] [place] Differential cell count method Nom (Bld) Auto Normal [facility] Comment on above: Order Comment: Speci men Type: BLOOD SPECIMENOrdering Facility: [facility] Address: [address] [place] [address] Performed By: #### 5 7021-8 ####[facility] LABCLIA [id number] [place] [address] [place] Eosinophils (Bld) [#/Vol] 0.05 10*3/uL Normal <0.46 [facility] Comment on above: Order Comment: Speci men Type: BLOOD SPECIMENOrdering Facility: [facility] Address: [address] [place] [address] Performed By: #### 5 7021-8 ####[facility] LABCLIA [id number] [place] [address] [place] Eosinophils/100 WBC (Bld) 0.7 % Normal [facility] Comment on above: Order Comment: Speci men Type: BLOOD SPECIMENOrdering Facility: [facility] Address: [address] [place] [address] Performed By: #### 5 7021-8 ####[facility] LABCLIA [id number] [place] [address] [place] Erythrocyte distribution width (RBC) [Ratio] 13.0 % Normal 11.5-15.0 [facility] Comment on above: Order Comment: Speci men Type: BLOOD SPECIMENOrdering Facility: [facility] Address: [address] [place] [address] Performed By: #### 5 7021-8 ####[facility] LABIA [id number] [place] [address] [place] Hematocrit (Bld) [Volume fraction] 34.4 % Low 36.0-46.0 [facility] Comment on above: Order Comment: Speci men Type: BLOOD SPECIMENOrdering Facility: [facility] Address: [address] [place] [address] Performed By: #### 5 7021-8 ####[facility] LABCLIA [id number] [place] [address] [place] Hemoglobin (Bld) [Mass/Vol] 11.6 g/dL Normal 11.5-15.5 [facility] Comment on above: Order Comment: Speci men Type: BLOOD SPECIMENOrdering Facility: [facility] Address: [address] [place] [address] Performed By: #### 5 7021-8 ####[facility] LABCLIA [id number] [place] [address] [place] Immature granulocytes (Bld) [#/Vol] 10*3/uL Normal <0.10 [facility] Comment on above: Order Comment: Speci men Type: BLOOD SPECIMENOrdering Facility: [facility] Address: [address] [place] [address] Performed By: #### 5 7021-8 ####[facility] LABCLIA [id number] [place] [address] [place] Immature granulocytes/100 WBC (Bld) 0.3 % Normal [facility] Comment on above: Order Comment: Speci men Type: BLOOD SPECIMENOrdering Facility: [facility] Address: [address] [place] [address] Performed By: #### 5 7021-8 ####[facility] LABCLIA [id number] [place] [address] [place] Lymphocytes (Bld) [#/Vol] 1.13 10*3/uL Normal 1.00-4.00 [facility] Comment on above: Order Comment: Speci men Type: BLOOD SPECIMENOrdering Facility: [facility] Address: [address] [place] [address] Performed By: #### 5 7021-8 ####[facility] LABCLIA [id number] [address] [place] Lymphocytes/100 WBC (Bld) 16.5 % Normal [facility] Comment on above: Order Comment: Speci men Type: BLOOD SPECIMENOrdering Facility: [facility] Address: [address] [place] [address] Performed By: #### 5 7021-8 ####[facility] LABCLIA [id number] [place] [address] [place] MCH (RBC) [Entitic mass] 31.2 pg Normal 26.0-34.0 [facility] Comment on above: Order Comment: Speci men Type: BLOOD SPECIMENOrdering Facility: [facility] Address: [address] [place] [address] Performed By: #### 5 7021-8 ####[facility] LABCLIA [id number] [place] [address] [place] MCHC (RBC) [Mass/Vol] 33.7 g/dL Normal 30.5-36.0 [facility] Comment on above: Order Comment: Speci men Type: BLOOD SPECIMENOrdering Facility: [facility] Address: [address] [place] [address] Performed By: #### 5 7021-8 ####[facility] LABCLIA [id number] [place] [address] [place] MCV (RBC) [Entitic vol] 92.5 fL Normal 80.0-100.0 [facility] Comment on above: Order Comment: Speci men Type: BLOOD SPECIMENOrdering Facility: [facility] Address: [address] [place] [address] Performed By: #### 5 7021-8 ####[facility] LABCLIA [id number] [place] [address] [place] Monocytes (Bld) [#/Vol] 0.39 10*3/uL Normal <0.87 [facility] Comment on above: Order Comment: Speci men Type: BLOOD SPECIMENOrdering Facility: [facility] Address: [address] [place] [address] Performed By: #### 5 7021-8 ####[facility] LABCLIA [id number] [place] [address] [place] Monocytes/100 WBC (Bld) 5.7 % Normal [facility] Comment on above: Order Comment: Speci men Type: BLOOD SPECIMENOrdering Facility: [facility] Address: [address] [place] [address] Performed By: #### 5 7021-8 ####[facility] LABCLIA [id number] [place] [address] [place] Neutrophils (Bld) [#/Vol] 5.23 10*3/uL Normal 1.45-7.50 [facility] Comment on above: Order Comment: Speci men Type: BLOOD SPECIMENOrdering Facility: [facility] Address: [address] [place] [address] Performed By: #### 5 7021-8 ####[facility] LABCLIA [id number] [place] [address] [place] Neutrophils/100 WBC (Bld) 76.5 % Normal [facility] Comment on above: Order Comment: Speci men Type: BLOOD SPECIMENOrdering Facility: [facility] Address: [address] [place] [address] Performed By: #### 5 7021-8 ####[facility] LABIA [id number] [place] [address] [place] Nucleated RBC (Bld) [#/Vol] 10*3/uL Normal <0.01 [facility] Comment on above: Order Comment: Speci men Type: BLOOD SPECIMENOrdering Facility: [facility] Address: [address] [place] [address] Performed By: #### 5 7021-8 ####[facility] LABIA [id number] [place] [address] [place] Nucleated RBC/100 WBC (Bld) [Ratio] 0.0 /100 WBC Normal [facility] Comment on above: Order Comment: Speci men Type: BLOOD SPECIMENOrdering Facility: [facility] Address: [address] [place] [address] Performed By: #### 5 7021-8 ####[facility] LABIA [id number] [place] [address] [place] Platelet mean volume (Bld) [Entitic vol] 14.0 fL High 9.0-12.7 [facility] Comment on above: Order Comment: Speci men Type: BLOOD SPECIMENOrdering Facility: [facility] Address: [address] [place] [address] Performed By: #### 5 7021-8 ####[facility] LABIA [id number] [place] [address] [place] Platelets (Bld) [#/Vol] 101 10*3/uL Low 150-400 [facility] Comment on above: Order Comment: Speci men Type: BLOOD SPECIMENOrdering Facility: [facility] Address: [address] [place] [address] Result Comment: Plat elet count confirmed by manual review of peripheral blood smear. No clot detected.Results checked and verified. Performed By: #### 5 7021-8 ####[facility] LABCLIA [id number] [place] [address] [place] RBC (Bld) [#/Vol] 3.72 10*6/uL Low 3.90-5.20 [facility] Comment on above: Order Comment: Speci men Type: BLOOD SPECIMENOrdering Facility: [facility] Address: [address] [place] [address] Performed By: #### 5 7021-8 ####[facility] LABCLIA [id number] [place] [address] [place] WBC (Bld) [#/Vol] 6.84 10*3/uL Normal 3.70-11.00 [facility] Comment on above: Order Comment: Speci men Type: BLOOD SPECIMENOrdering Facility: [facility] Address: [address] [place] [address] Performed By: #### 5 7021-8 ####[facility] LABCLIA [id number] [address] [place] [facility] THERAPY NTon 07-07-2025 THERAPY NT HNO ID: [id number] Author: CUCO GASPAR, PT Service: Physical Therapy Author Type: Physical Therapist Type: Therapy (PT/OT/Speech/Resp) Filed: 07/07/2025 12:38 Note Text: Physical Therapy Treatment Summary SERVICE DATE: 07/07/2025 SERVICE TIME: 1202 to 1227 ROOM: [place] [address] PT 6 Clicks Score: 19 DISCHARGE RECOMMENDATIONS Home PT Anticipated Discharge Needs: Physical Assist at Home Physical Assist at Home for: Cleaning, Laundry, Meals, Shopping, Transportation Recommended Discharge Equipment: Wheeled Walker ASSESSMENT Response to Therapy Interventions: Good Participation in Activities, On-Track to Achieve Discharge Goals, Improved Tolerance for Activity VSS on RA; Pt tolerates session fairly though continues to report hot flashes with increased mobility. Pt progresses well to ambualting further with WW and CGA this date. 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; hx of fall d/t syncope, likely migraine related; 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, +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 SUBJECTIVE pt agreeable to PT THERAPY DIAGNOSIS Reduced mobility-other TREATMENT INTERVENTIONS Gait Training (77612) Treatment Minutes: 25 $ Gait Training (94607) Billed Units: 2 units Gait Training (43661) Timed Code Treatment (minutes): 25 Skilled Treatment Time (minutes): 25 TRAINING AND EDUCATION PROVIDED Anatomy and Impact on Deficits, Assistive Device Use, Bed Mobility, Benefits of In-Hospital Mobility, Discharge Planning, Energy Conservation, Exercise Program, Expected Functional Level, Falls Prevention, Gait Pattern, Reduction of Deviations, Home Safety, Patient Exercise/Therapy Program Support Needs, Positioning, Standing Balance, Transfers, Treatment Protocol, Role of Physical Therapy, Precautions/Restriction s THERAPEUTIC SKILLS USED Activity Dosing, Assessment of Tolerance Including Vitals Response to Activity, Cues for Sequencing/Proper Technique for Activity, Cuing Verbal, Cuing Visual, Management of Critical Lines, Tubes and/or Drains, Movement Facilitation, Teach-Back for Education, Muscle Activation Facilitation, Postural Alignment Correction, Physical Assist FUNCTIONAL STATUS Bed Mobility Rolling: Stand By Assistance Supine To Sit: Contact Guard Assistance Scooting: Contact Guard Assistance Transfers Sit To Stand: Contact Guard Assistance Stand To Sit: Contact Guard Assistance Bed to Chair Contact Guard Assistance Bed To Chair Transfer Type: Stepping Bed To Chair Transfer Equipment: Wheeled Walker Gait Contact Guard Assistance, Additional Information . Gait Device: Wheeled Walker General Deviations/Observations : Skylar decreased, Shuffling Gait, Step length decreased Gait Distance (feet): 75x2 (seated rest betweent rials) Stairs GOALS Patient will demonstrate progress with functional mobility to allow safe discharge to home with available support and/or physical assistance. Rehab Potential: Good Progress Toward Goals: Progressing as expected ACUTE CARE TREATMENT PLAN PT Frequency: Per Next Session Date Treatment Interventions: Self Care / Home Management, Education, Energy Conservation Training, Joint Mobility, Strengthening, Functional Mobility Training, Balance Training, Neuromuscular Re-education Plan for Next Visit: Gait Training, Stair Training SIGNATURE: Cuco Gaspar, PT PATIENT NAME: Jaya Hopson DATE: July 07, 2025 TIME: 12:37 PM Normal [facility] Basic metabolic 2000 panelon 07-06-2025 Anion gap [Moles/Vol] 11 mmol/L Normal 8-15 [facility] Comment on above: Order Comment: Speci men Type: BLOOD SPECIMENOrdering Facility: [facility] Address: [address] [place] [address] Performed By: #### 2 4321-2 ####[facility] LABCLIA [id number] [place] [address] [place] Calcium [Mass/Vol] 8.9 mg/dL Normal 8.5-10.2 [facility] Comment on above: Order Comment: Speci men Type: BLOOD SPECIMENOrdering Facility: [facility] Address: [address] [place] [address] Performed By: #### 2 4321-2 ####[facility] LABCLIA [id number] [place] [address] [place] Chloride [Moles/Vol] 106 mmol/L Normal 98-107 [facility] Comment on above: Order Comment: Speci men Type: BLOOD SPECIMENOrdering Facility: [facility] Address: [address] [place] [address] Performed By: #### 2 4321-2 ####[facility] LABCLIA [id number] [place] [address] [place] CO2 [Moles/Vol] 22 mmol/L Normal 22-30 [facility] Comment on above: Order Comment: Speci men Type: BLOOD SPECIMENOrdering Facility: [facility] Address: [address] [place] [address] Performed By: #### 2 4321-2 ####[facility] LABCLIA [id number] [place] [address] [place] Creatinine [Mass/Vol] 0.73 mg/dL Normal 0.58-0.96 [facility] Comment on above: Order Comment: Speci men Type: BLOOD SPECIMENOrdering Facility: [facility] Address: [address] [place] [address] Performed By: #### 2 4321-2 ####[facility] LABIA [id number] [place] [address] [place] eGFRcr SerPlBld CKD-EPI 2020 114 mL/min/1.73m??? Normal >=60 [facility] Comment on above: Order Comment: Ami peña Type: BLOOD SPECIMENOrdering Facility: [facility] Address: [address] [place] [address] Result Comment: Angela mated Glomerular Filtration Rate (eGFR) is calculated using the 2020 CKD-EPI creatinine equation. This equation utilizes serum creatinine, sex, and age as parameters. The creatinine assay has traceable calibration to isotope dilution-mass spectrometry. Refer to KDIGO guidelines for clinical interpretation. In patients with unstable renal function, e.g. those with acute kidney injury, the eGFR may not accurately reflect actual GFR. Performed By: #### 2 4321-2 ####[facility] LABCLIA [id number] [place] [address] [place] Glucose [Mass/Vol] 100 mg/dL High 74-99 [facility] Comment on above: Order Comment: Ami peña Type: BLOOD SPECIMENOrdering Facility: [facility] Address: [address] [place] [address] Result Comment: The [place] Diabetes Association (ADA) provides guidance for cutoff values for fasting glucose and random glucose. The ADA defines fasting as no caloric intake for at least 8 hours. Fasting plasma glucose results between 100 to 125 mg/dL indicate increased risk for diabetes (prediabetes). Fasting plasma glucose results greater than or equal to 126 mg/dL meet the criteria for diagnosis of diabetes. In the absence of unequivocal hyperglycemia, results should be confirmed by repeat testing. In a patient with classic symptoms of hyperglycemia or hyperglycemic crisis, random plasma glucose results greater than or equal to 200 mg/dL meet the criteria for diagnosis of diabetes. Reference: Standards of Medical Care in Diabetes 2016, [place] Diabetes Association. Diabetes Care. 2016.39(Suppl 1). Performed By: #### 2 4321-2 ####[facility] LABCLIA [id number] [place] [address] [place] Potassium [Moles/Vol] 4.0 mmol/L Normal 3.7-5.1 [facility] Comment on above: Order Comment: Speci men Type: BLOOD SPECIMENOrdering Facility: [facility] Address: [address] [place] [address] Performed By: #### 2 4321-2 ####[facility] LABCLIA [id number] [place] [address] [place] Sodium [Moles/Vol] 139 mmol/L Normal 136-144 [facility] Comment on above: Order Comment: Speci men Type: BLOOD SPECIMENOrdering Facility: [facility] Address: [address] [place] [address] Performed By: #### 2 4321-2 ####[facility] LABCLIA [id number] [place] [address] [place] Urea nitrogen [Mass/Vol] 10 mg/dL Normal 7-21 [facility] Comment on above: Order Comment: Speci men Type: BLOOD SPECIMENOrdering Facility: [facility] Address: [address] [place] [address] Performed By: #### 2 4321-2 ####[facility] LABCLIA [id number] [place] [address] [place] CBC W Auto Differential pane l (Bld)on 07-06-2025 Basophils (Bld) [#/Vol] 10*3/uL Normal <0.11 [facility] Comment on above: Order Comment: Speci men Type: BLOOD SPECIMENOrdering Facility: [facility] Address: [address] [place] [address] Performed By: #### 5 7021-8 ####[facility] LABCLIA [id number] [place] [address] [place] Basophils/100 WBC (Bld) 0.1 % Normal [facility] Comment on above: Order Comment: Speci men Type: BLOOD SPECIMENOrdering Facility: [facility] Address: [address] [place] [address] Performed By: #### 5 7021-8 ####[facility] LABCLIA [id number] [place] [address] [place] Differential cell count method Nom (Bld) Auto Normal [facility] Comment on above: Order Comment: Speci men Type: BLOOD SPECIMENOrdering Facility: [facility] Address: [address] [place] [address] Performed By: #### 5 7021-8 ####[facility] LABCLIA [id number] [place] [address] [place] Eosinophils (Bld) [#/Vol] 10*3/uL Normal <0.46 [facility] Comment on above: Order Comment: Speci men Type: BLOOD SPECIMENOrdering Facility: [facility] Address: [address] [place] [address] Performed By: #### 5 7021-8 ####[facility] LABCLIA [id number] [place] [address] [place] Eosinophils/100 WBC (Bld) 0.2 % Normal [facility] Comment on above: Order Comment: Speci men Type: BLOOD SPECIMENOrdering Facility: [facility] Address: [address] [place] [address] Performed By: #### 5 7021-8 ####[facility] LABCLIA [id number] [place] [address] [place] Erythrocyte distribution width (RBC) [Ratio] 13.0 % Normal 11.5-15.0 [facility] Comment on above: Order Comment: Speci men Type: BLOOD SPECIMENOrdering Facility: [facility] Address: [address] [place] [address] Performed By: #### 5 7021-8 ####[facility] LABCLIA [id number] [place] [address] [place] Hematocrit (Bld) [Volume fraction] 36.3 % Normal 36.0-46.0 [facility] Comment on above: Order Comment: Speci men Type: BLOOD SPECIMENOrdering Facility: [facility] Address: [address] [place] [address] Performed By: #### 5 7021-8 ####[facility] LABCLIA [id number] [place] [address] [place] Hemoglobin (Bld) [Mass/Vol] 12.0 g/dL Normal 11.5-15.5 [facility] Comment on above: Order Comment: Speci men Type: BLOOD SPECIMENOrdering Facility: [facility] Address: [address] [place] [address] Performed By: #### 5 7021-8 ####[facility] LABCLIA [id number] [place] [address] [place] Immature granulocytes (Bld) [#/Vol] 10*3/uL Normal <0.10 [facility] Comment on above: Order Comment: Speci men Type: BLOOD SPECIMENOrdering Facility: [facility] Address: [address] [place] [address] Performed By: #### 5 7021-8 ####[facility] LABCLIA [id number] [place] [address] [place] Immature granulocytes/100 WBC (Bld) 0.2 % Normal [facility] Comment on above: Order Comment: Speci men Type: BLOOD SPECIMENOrdering Facility: [facility] Address: [address] [place] [address] Performed By: #### 5 7021-8 ####[facility] LABCLIA [id number] [place] [address] [place] Lymphocytes (Bld) [#/Vol] 1.14 10*3/uL Normal 1.00-4.00 [facility] Comment on above: Order Comment: Speci men Type: BLOOD SPECIMENOrdering Facility: [facility] Address: [address] [place] [address] Performed By: #### 5 7021-8 ####[facility] LABCLIA [id number] [place] [address] [place] Lymphocytes/100 WBC (Bld) 13.1 % Normal [facility] Comment on above: Order Comment: Speci men Type: BLOOD SPECIMENOrdering Facility: [facility] Address: [address] [place] [address] Performed By: #### 5 7021-8 ####[facility] LABCLIA [id number] [place] [address] [place] MCH (RBC) [Entitic mass] 30.5 pg Normal 26.0-34.0 [facility] Comment on above: Order Comment: Speci men Type: BLOOD SPECIMENOrdering Facility: [facility] Address: [address] [place] [address] Performed By: #### 5 7021-8 ####[facility] LABCLIA [id number] [place] [address] [place] MCHC (RBC) [Mass/Vol] 33.1 g/dL Normal 30.5-36.0 [facility] Comment on above: Order Comment: Speci men Type: BLOOD SPECIMENOrdering Facility: [facility] Address: [address] [place] [address] Performed By: #### 5 7021-8 ####[facility] LABCLIA [id number] [place] [address] [place] MCV (RBC) [Entitic vol] 92.1 fL Normal 80.0-100.0 [facility] Comment on above: Order Comment: Speci men Type: BLOOD SPECIMENOrdering Facility: [facility] Address: [address] [place] [address] Performed By: #### 5 7021-8 ####[facility] LABCLIA [id number] [place] [address] [place] Monocytes (Bld) [#/Vol] 0.57 10*3/uL Normal <0.87 [facility] Comment on above: Order Comment: Speci men Type: BLOOD SPECIMENOrdering Facility: [facility] Address: [address] [place] [address] Performed By: #### 5 7021-8 ####[facility] LABCLIA [id number] [place] [address] [place] Monocytes/100 WBC (Bld) 6.6 % Normal [facility] Comment on above: Order Comment: Speci men Type: BLOOD SPECIMENOrdering Facility: [facility] Address: [address] [place] [address] Performed By: #### 5 7021-8 ####[facility] LABCLIA [id number] [place] [address] [place] Neutrophils (Bld) [#/Vol] 6.92 10*3/uL Normal 1.45-7.50 [facility] Comment on above: Order Comment: Speci men Type: BLOOD SPECIMENOrdering Facility: [facility] Address: [address] [place] [address] Performed By: #### 5 7021-8 ####[facility] LABCLIA [id number] [place] [address] [place] Neutrophils/100 WBC (Bld) 79.8 % Normal [facility] Comment on above: Order Comment: Speci men Type: BLOOD SPECIMENOrdering Facility: [facility] Address: [address] [place] [address] Performed By: #### 5 7021-8 ####[facility] LABCLIA [id number] [place] [address] [place] Nucleated RBC (Bld) [#/Vol] 10*3/uL Normal <0.01 [facility] Comment on above: Order Comment: Speci men Type: BLOOD SPECIMENOrdering Facility: [facility] Address: [address] [place] [address] Performed By: #### 5 7021-8 ####[facility] LABCLIA [id number] [place] [address] [place] Nucleated RBC/100 WBC (Bld) [Ratio] 0.0 /100 WBC Normal [facility] Comment on above: Order Comment: Speci men Type: BLOOD SPECIMENOrdering Facility: [facility] Address: [address] [place] [address] Performed By: #### 5 7021-8 ####[facility] LABCLIA [id number] [place] [address] [place] Platelet mean volume (Bld) [Entitic vol] 13.9 fL High 9.0-12.7 [facility] Comment on above: Order Comment: Speci men Type: BLOOD SPECIMENOrdering Facility: [facility] Address: [address] [place] [address] Performed By: #### 5 7021-8 ####[facility] LABCLIA [id number] [place] [address] [place] Platelets (Bld) [#/Vol] 109 10*3/uL Low 150-400 [facility] Comment on above: Order Comment: Speci men Type: BLOOD SPECIMENOrdering Facility: [facility] Address: [address] [place] [address] Performed By: #### 5 7021-8 ####[facility] LABCLIA [id number] [place] [address] [place] RBC (Bld) [#/Vol] 3.94 10*6/uL Normal 3.90-5.20 [facility] Comment on above: Order Comment: Speci men Type: BLOOD SPECIMENOrdering Facility: [facility] Address: [address] [place] [address] Performed By: #### 5 7021-8 ####[facility] LABCLIA [id number] [place] [address] [place] WBC (Bld) [#/Vol] 8.68 10*3/uL Normal 3.70-11.00 [facility] Comment on above: Order Comment: Speci men Type: BLOOD SPECIMENOrdering Facility: [facility] Address: [address] [place] [address] Performed By: #### 5 7021-8 ####[facility] LABCLIA [id number] [place] [id number] [place] NURSING PROGon 07-06-2025 NURSING PROG HNO ID: [id number] Author: GURWINDER METZGER RN Service: Nursing Author Type: Registered Nurse Type: Nursing Progress Note Filed: 07/06/2025 07:08 Note Text: Other: RN attempted to straight cath patient on two separate occasions. Unable to straight succesfully straight cath; patient declined being straight cath again(patient educated on the importance of straight catheterization; risks vs benefits. Pt still declining; pt is alert and oriented). Urinary retention was 305 @ around 2000 and 325 @ around 0145. Pt reporting the room is spinning around me after having her roll on side to try bed kapoor; pt unable to void in bed kapoor stating I feel like I have to pee but I can't and reports feeling Hot and shaky. RN checked temp and CBG (see chart) and both were within normal limits; ice packs applied to patient. RN notified DRILLING ENGINEERING MANAGER of patient concerns about being hot and clammy (also relaying results), along with not being able to straight cath patient. Ordered a bedside commode for patient; ice packs given, and will bladder scan again around 0400 to verify if patient is continuing to retain. Medical team aware, 0330; BS 464- pt not ambulating due to drowsiness/pain, patient medicated for pain and BC ordered but not delivered. Educated patient on ambulating to Commode when it arrives. DRILLING ENGINEERING MANAGER aware. Bedside commode arrived; pt voided. Normal [facility] THERAPY NTon 07-06-2025 THERAPY NT HNO ID: [id number] Author: LUKE WHITEHEAD, OT/L Service: Occupational Therapy Author Type: Occupational Therapist Type: Therapy (PT/OT/Speech/Resp) Filed: 07/06/2025 14:19 Note Text: Occupational Therapy Evaluation Summary SERVICE DATE: 07/06/2025 SERVICE TIME: 1344 to 1408 ROOM: [place] [address] OT 6 Clicks Score: 21 DISCHARGE RECOMMENDATIONS Home Recommended Discharge Disposition Comments: Anticipate safe d/c home with assist for IADLs. Anticipated Discharge Needs: Physical Assist at Home Physical Assist at Home for: Cleaning, Laundry, Meals, Shopping, Transportation ASSESSMENT Response to Therapy Interventions: Good Participation in Activities Pt seen in chair on entry, agreeable to OT. Tolerated session fairly well focused on functional mobility and review of precuations. Fully oriented with no overt cog or neuro deficits noted during session. Reports some lightheadedness with change in positions but able to walk to bathroom from her bed area and back without seated rest, BP stable. EOS in recliner and set up with lunch. 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; hx of fall d/t syncope, likely migraine related; 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, +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 Baseline Cognition: Oriented to self, Oriented to place, Oriented to time, Oriented to situation SUBJECTIVE Agreeable to OT COGNITION Responsiveness: Alert, Awake Follows Commands: 3-step Commands Cog 6 Start of Session Total Points (Max Score = 24): 24 (07/06/25) Cog 6 End of Session Total Points (Max Score = 24): 24 (07/06/25) 4AT Score: 0 (07/06/25) Delirium Positive/Negative: Negative (07/06/25) THERAPY DIAGNOSIS Decreased activities of daily living (ADL) TREATMENT INTERVENTIONS Evaluation, Self Prison Management (18104) Timed Code Treatment (minutes): 9 Skilled Treatment Time (minutes): 24 TRAINING AND EDUCATION PROVIDED Activity Adaptation/Compensatory Strategies, Benefits of In-Hospital Mobility, Discharge Planning, Disease Specific Education, Expected Functional Level, Functional Mobility Involving ADLs, Life Roles/Routines/Habits, Lower Extremity Bathing, Lower Extremity Dressing, Precautions/Restriction s, Role of Occupational Therapy, Self-Efficacy, Transfer - Sit to Stand, Standing Balance to Improve [place] with ADLs/Self-Care THERAPEUTIC SKILLS USED Activity Dosing, Assessment of Tolerance Including Vitals Response to Activity, Movement Facilitation, Physical Assist, Therapeutic Use of Self FUNCTIONAL STATUS Activities of Daily Living Assist Level Additional Information Feeding Independent Grooming Stand By Assistance Bathing Upper Body Stand By Assistance Bathing Lower Body Minimal Assistance Dressing Upper Body Stand By Assistance Dressing Lower Body Minimal Assistance Toileting Contact Guard Assistance Mobility Assist Level Additional Information Bed Mobility Sit to Stand Contact Guard Assistance Stand to Sit Contact Guard Assistance Bed to Chair Toilet/Commode Shower Functional Mobility Contact Guard Assistance Functional Mobility Device: Wheeled Walker GOALS Patient will demonstrate progress with self-care, cognitive and/or coping needs identified to allow safe discharge to home with available support and/or physical assistance. Rehab Potential: Excellent Excellent Rehab Potential Due To: Current objective clinical presentation, Good overall health status, Good support system/ coping skills, Good motivation Progress Toward Goals: Progressing as expected ACUTE CARE TREATMENT PLAN OT Frequency: 3 Times Per Week Treatment Interventions: Education, Self Care/Home Management, Strengthening, Functional Mobility Training, Balance Training, Pain Management Plan for Next Visit: Continue per POC SIGNATURE: KIM Tucker, OT/L PATIENT NAME: Jaya Hopson DATE: July 06, 2025 TIME: 2:18 PM Normal [facility] THERAPY NT HNO ID: [id number] Author: CUCO GASPAR, PT Service: Physical Therapy Author Type: Physical Therapist Type: Therapy (PT/OT/Speech/Resp) Filed: 07/06/2025 09:41 Note Text: Physical Therapy Evaluation Summary SERVICE DATE: 07/06/2025 SERVICE TIME: 827 to 922 ROOM: [id number] PT 6 Clicks Score: 19 DISCHARGE RECOMMENDATIONS Home PT Anticipated Discharge Needs: Physical Assist at Home Physical Assist at Home for: Cleaning, Laundry, Meals, Shopping, Transportation Recommended Discharge Equipment: Wheeled Walker ASSESSMENT Response to Therapy Interventions: Good Participation in Activities, On-Track to Achieve Discharge Goals VSS on RA; Pt tolerates session fairly though is limited by post op symptoms of fatigue, feeling weak and feeling hot. Pt presents s/p chiari malformation decompression with WFL strength/ROM. Pt requires grossly CGA for bed mobility and ambulation with WW, reports increased dizziness with mobilty however presents with fair to good balance. Anticipate with continued in hosptial mobility pt will be approriate to d/c home with home PT. 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; hx of fall d/t syncope, likely migraine related; 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, +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 SUBJECTIVE pt agreeable to PT THERAPY DIAGNOSIS Reduced mobility-other TREATMENT INTERVENTIONS $ Evaluation-Moderate (30022) Billed Units: 1 unit Therapeutic Activity (55361) Treatment Minutes: 23 $ Therapeutic Activity (69076) Billed Units: 2 units Gait Training (55542) Treatment Minutes: 17 $ Gait Training (53855) Billed Units: 1 unit Evaluation, Therapeutic Activity (23277), Gait Training (99516) Timed Code Treatment (minutes): 40 Skilled Treatment Time (minutes): 55 TRAINING AND EDUCATION PROVIDED Anatomy and Impact on Deficits, Assistive Device Use, Bed Mobility, Benefits of In-Hospital Mobility, Discharge Planning, Energy Conservation, Exercise Program, Expected Functional Level, Falls Prevention, Gait Pattern, Reduction of Deviations, Handout Issued, Home Safety, Patient Exercise/Therapy Program Support Needs, Positioning, Standing Balance, Transfers, Treatment Protocol, Role of Physical Therapy, Precautions/Restriction s THERAPEUTIC SKILLS USED Activity Dosing, Assessment of Tolerance Including Vitals Response to Activity, Cues for Sequencing/Proper Technique for Activity, Cuing Verbal, Cuing Visual, Management of Critical Lines, Tubes and/or Drains, Movement Facilitation, Teach-Back for Education, Muscle Activation Facilitation, Postural Alignment Correction, Physical Assist FUNCTIONAL STATUS Bed Mobility Rolling: Stand By Assistance Supine To Sit: Contact Guard Assistance Scooting: Contact Guard Assistance Transfers Sit To Stand: Contact Guard Assistance Stand To Sit: Contact Guard Assistance Bed to Chair Contact Guard Assistance Bed To Chair Transfer Type: Stepping Bed To Chair Transfer Equipment: Wheeled Walker Gait Contact Guard Assistance, Additional Information gait limited d/t pt reporting fatigue/body overheating/weak; s/s resolve with sitting and eating cheerios Gait Device: Wheeled Walker General Deviations/Observations : Skylar decreased, Shuffling Gait, Step length decreased Gait Distance (feet): 25, 5 (seated rest between trials) Stairs GOALS Patient will demonstrate progress with functional mobility to allow safe discharge to home with available support and/or physical assistance. Rehab Potential: Good Good Rehab Potential Due To: Good support system/ coping skills, Good motivation Progress Toward Goals: Progressing as expected ACUTE CARE TREATMENT PLAN PT Frequency: Per Next Session Date Treatment Interventions: Self Care / Home Management, Education, Energy Conservation Training, Joint Mobility, Strengthening, Functional Mobility Training, Balance Training, Neuromuscular Re-education Plan for Next Visit: Gait Training, Stair Training SIGNATURE: Cuco Gaspar PT PATIENT NAME: Jaya Hopson DATE: July 06, 2025 TIME: 9:41 AM Normal [facility] ANES POSTPROC EVALon 025 ANES POSTPROC EVAL HNO ID: [id number] Author: SOCRATES RENTERIA MD Service: ? Author Type: Anesthesiologist Type: Anesthesia Postprocedure Evaluation Filed: 07/05/2025 13:22 Note Text: POST ANESTHESIA EVALUATION NOTE : 1995 Procedure Summary Date: 07/05/25 Room / Location: [place] [address] [facility] Anesthesia Start: 728 Anesthesia Stop: 1251 Procedure: CRANIECTOMY SUBOCCIPITAL W/ CERV LAMI FOR DECOMPRESS W/ DURAL GRAFT (Head) Diagnosis: Chiari malformation type I (HCC) (Chiari malformation type I (HCC) [G93.5]) Surgeons: Rickie Sanchez MD Responsible Provider: Socrates Renteria MD Anesthesia Type: general ASA Status: 3 Anesthesia Type: general Airway Type: ETT Last Vitals Vitals Value Taken Time Arterial BP 1 140/72 07/05/25 13:20 Temp 36.7 ?C (98.1 ?F) 07/05/25 12:52 Pulse 85 07/05/25 13:20 Resp 12 07/05/25 13:00 SpO2 100 % 07/05/25 13:20 Vitals shown include unfiled device data. Post Anesthesia Patient Status Patient Evaluation: PACU. PACU/ICU Patient Condition: stable. Anticipated Disposition: inpatient floor planned admission. Neurological Status: aware and responsive. Pulmonary Status: breathing comfortably on supplemental oxygen Airway Control: returned to baseline unsupported. Cardiovascular Status: stable. Pain Management: clinically adequate Postoperative Hydration: acceptable. Intraoperative Events: no significant anesthesia events Post Operative Nausea/Vomiting Status: no significant post operative nausea or vomiting Recommendation: continue current plan of care. Anesthesia Observations No Documentation SIGNATURE: Socrates Renteria MD PATIENT NAME: Jaya Hopson DATE: July 05, 2025 TIME: 1:22 PM CSN: [id number] Normal [facility] ANES PRE-OPon 07-05-2025 ANES PRE-OP HNO ID: [id number] Author: SOCRATES RENTERIA MD Service: ? Author Type: Anesthesiologist Type: Anesthesia Preprocedure Evaluation Filed: 07/05/2025 07:08 Note Text: ANESTHESIOLOGY DAY OF SURGERY NOTE : 1995 Procedure Information Date/Time: 07/05/2530 Procedure: CRANIECTOMY SUBOCCIPITAL W/ CERV LAMI FOR DECOMPRESS W/ DURAL GRAFT (Head) Location: [facility] Surgeons: Rickie Sanchez MD Estimated body mass index is 32.28 kg/m? as calculated from the following: Height as of this encounter: 165.1 cm (5' 5). Weight as of this encounter: 88 kg (194 lb). Most recent hematocrit and potassium results: Hematocrit 42.0 06/23/2025 Potassium 4.1 06/23/2025 Relevant Problems CARDIO (+) Migraine with aura and without status migrainosus, not intractable GI (+) Gastroesophageal reflux disease without esophagitis NEURO-PSYCH (+) Migraine with aura and without status migrainosus, not intractable (+) Nonintractable headache PULMONARY (+) Mild intermittent asthma with acute exacerbation (HCC) I - PHYSICAL EVALUATION AIRWAY Patient intubated: No. Tracheostomy tube not present Mallampati: III. TM distance: >3 FB. Neck ROM: full ROM without neurological symptoms. Mouth openin FB. Short neck: no. Thick neck: no Mendes present: no Additional exam findings: no II - ANESTHESIA PLAN ASA Score: 3 Anesthetic Plan: general Airway type: ETT NPO Status: adequate Monitoring Plan Monitoring plan: standard ASA. Post Procedure Analgesic Plan Postoperative analgesic plan: multimodal analgesia. Informed Consent Anesthetic risks, benefits, alternatives, personnel and consent discussed: yes. Patient / Responsible Constitution Party agrees to proceed: yes Patient / Surrogate agrees to blood products: Yes DNR status not reviewed with patient and/or family prior to surgery. Significant changes in the patient condition since the History and Physical, not otherwise documented in primary service progress note: no. Potential Anesthesia issues that may suggest increased risk of complications or contraindication to planned procedure: none. Vitals Value Taken Time BP 132/84 07/05/25 05:51 Pulse 68 07/05/25 05:51 Resp 16 07/05/25 05:51 Temp 37.3 ?C (99.1 ?F) 07/05/25 05:51 SpO2 100 % 07/05/25 05:51 No current facility-administered medications on file as of 07/05/2025. Outpatient Medications as of 07/05/2025 Medication Sig sertraline (ZOLOFT) 25 mg tablet Take 25 mg by mouth once daily. ARIPiprazole (ABILIFY) 2 mg tablet Take 1 tablet by mouth every afternoon. traZODone (DESYREL) 50 mg tablet TAKE 1/2 (ONE-HALF) TABLET BY MOUTH ONCE DAILY AT BEDTIME NEEDED mv-min/iron/folic/calci um/vitK (WOMEN'S MULTIVITAMIN ORAL) Take 2 tablets by mouth once daily. Magnesium 250 mg tab Take 250 mg by mouth once daily. Biotin 10,000 mcg cap Take 1 capsule by mouth once daily. cholecalciferol (VITAMIN D-3) 50 mcg (2,000 unit) tablet Take 1,000 Units by mouth once daily. calcium carbonate (CALCIUM 600 ORAL) Take 1 tablet by mouth three times a day. thiamine (VITAMIN B-1) 50 mg tablet Take 50 mg by mouth once daily. cyanocobalamin (VITAMIN B-12) 500 mcg tablet Take 1 tablet by mouth every other week. medroxyPROGESTERone (DEPO-PROVERA) 150 mg/mL injection Inject 1 mL intramuscularly every 12 weeks. galcanezumab-gnlm (EMGALITY PEN) 120 mg/mL pen Inject 1 mL subcutaneously once every month. Do not shake. ubrogepant (UBRELVY) 100 mg tablet Take 1 tablet by mouth as needed (take at onset of migraine, repeat in 2 hours). albuterol HFA (PROVENTIL HFA, VENTOLIN HFA) 90 mcg/actuation inhaler Inhale 2 Puffs as instructed every 4 hours as needed for wheezing/shortness of breath. I have interviewed and examined the patient. I have reviewed the medical record and/or the pre-anesthesia evaluation, pertinent labs, and test results. This contains updated information obtained within 48 hours of Surgery/Procedure. SIGNATURE: Socrates Renteria MD PATIENT NAME: Jaya Hopson DATE: July 05, 2025 TIME: 7:07 AM CSN: [id number] Normal [facility] BRIEF OP NOTon 07-05-2025 BRIEF OP NOT HNO ID: [id number] Author: JACINTO GARÍCA MD Service: Neurosurgery Author Type: Resident Type: Brief Op Note Filed: 07/05/2025 12:36 Note Text: BRIEF OPERATIVE / PROCEDURE NOTE LOG ID: [id number] SURGERY/PROCEDURE DATE: 07/05/2025 INCISION/PROCEDURE START TIME: 8:42 AM INCISION CLOSE/PROCEDURE END TIME: 12:20 PM SURGEON(S)/PROCEDURALIS T(S) AND RISK PREVENTION ENGINEER(S): Surgeons and Role: * Rickie Sanchez MD - Primary * Jacinto García MD - Resident - Assisting No Additional Staff SURGERY/PROCEDURE(S): Suboccipital craniectomy, C1 laminectomy and duraplasty for chiari malformation ANESTHESIA: General FINDINGS: Satisfactory decompression and duraplasty with good csf flow ESTIMATED BLOOD LOSS: 75 mls SPECIMENS: None CLOSURE TECHNIQUE: Primary PRE-OP/PRE-PROCEDURE DIAGNOSIS: Chiari I malformation POST-OP/POST-PROCEDURE DIAGNOSIS: Same as Preop Patient was accompanied to the next level of care by a licensed practitioner from the surgical team pending completion of this brief op note (or operative note) SIGNATURE: Jacinto García MD PATIENT NAME: Jaya Hopson DATE: July 05, 2025 TIME: 12:35 PM Normal [facility] CONFIRM BLOOD TYPEon 025 ABO A Normal [facility] Comment on above: Order Comment: Speci men Type: BLOOD SPECIMENOrdering Facility: [facility] Address: [address] [place] [address] Performed By: #### C ONABO ####[facility] LABCLIA [id number] [address] [place] Rh Nom (Bld) Positive Normal [facility] Comment on above: Order Comment: Speci men Type: BLOOD SPECIMENOrdering Facility: [facility] Address: [address] [place] [address] Performed By: #### C ONABO ####[facility] LABCLIA [id number] [address] OPERATIVE NOon 07-05-2025 OPERATIVE NO HNO ID: [id number] Author: RICKIE SANCHEZ MD Service: Neurosurgery Author Type: Resident Type: Operative Report Filed: 07/06/2025 14:45 Note Text: Attestation signed by Ricike Sanchez MD at 07/06/2025 2:45 PM Rickie Sanchez MD OPERATIVE/PROCEDURE REPORT NEUROSURGERY LOG ID: [id number] Surgery/Procedure Date: 07/05/2025 Incision/Procedure Start Time: 8:42 AM Incision Close/Procedure End Time: 12:20 PM Surgeon(s)/Proceduralis t(s) and Learning Coach(s): Surgeons and Role: * Rickie Sanchez MD - Primary * Jacinto García MD - Resident - Assisting Procedure(s): 1. Suboccipital craniectomy, C1 laminectomy, and duraplasty for chiari decompression 2. Use of operative microscope Preoperative Diagnosis: Chiari I malformation Postoperative Diagnosis: Same Anesthesia: General Procedure Details: The patient was brought to the operating room and an operative huddle, including the patient and team members from neurosurgery, anesthesiology, and nursing, was performed to confirm the patient's identity and procedure to be performed. The patient was then induced with general anesthesia and intubated. The appropriate lines were placed by the anesthesiology team. The patient was positioned prone on OR table in Plata head knitting machine fixer. Patient was prepped and draped in the usual fashion, and an audible timout was performed. Deepti-op antibiotics were administered prior to incision. Incision was made sharply from the region of the inion to C2. Dissection was made carefully in the midline avascular plane. We incised fascia in a Y-shaped fashion. We exposed the posterior arch of C1 and the suboccipital bone to the foramen magnum, and self-retaining retractors were placed. Blunt dissection was used to develop the epidural plane. When adequate exposure was achieved, we performed a craniectomy of the suboccipital bone using the high-speed air drill to measure approximately 2.5Wx1.5H. We then completed our craniectomy using rongeuers. Next, we turned our attention to the C1 laminectomy which was completed with drill and Kerrison rongeurs. Under the microscope, we opened the dura in the region of the C1 laminectomy to allow for CSF egress to decompress the posterior fossa. When adequate brain relaxation was achieved, we then completed a Y-shaped dural opening, taking care to control any bleeding from the dural venous sinuses and veins. The cerebellar tonsils were visible and were descended to the region of our laminectomy. We carefully this from the dural layer. We then used sharp dissection to carefully and widely released the arachnoid adhesions visible within the region of the foramen magnum. We gently explored the cerebellar tonsils to the obex and found wide open space for CSF egress and no further arachnoid adhesions. Thetonsils were shrunk back using bipolar cautery. The subarachnoid space was copiously irrigated. We then cut a DuraFlex to size. With a cottonoid in place to collect any epidural/dural oozing, we sutured the DuraFlex to the dural edges in watertight fashion, removed the cottonoid prior to final closure. Valsalva maneuver was performed and found no CSF egress after patching with muscle a small site of CSF egress on left superior portion. We then applied a layer of surgicel and Tisseel to the closure edges. We then performed a layered closure in the usual manner using 0-Vicryl and 2-0 Vicryl for subcutaneous tissues. 3-0 nylon was used for skin. A sterile dressing and headwrap was applied. Patient extubated and taken to PACU in stable condition. Findings: 1. Satisfactory decompression and duraplasty, good csf flow Estimated Blood Loss: 75 mLs Specimens: * No specimens in log * Implantable Devices: * No implants in log * Drains: None Complications: None The procedure was performed by Dr. Sanchez with the assistance of Dr. Sharon García MD [facility] TYPE + SCREENon 07-05-2025 ABO A Normal [facility] Comment on above: Order Comment: Speci men Type: BLOOD SPECIMENOrdering Facility: [facility] Address: [address] [place] [address] Performed By: #### T SCR ####[facility] LABCLIA [id number] [place] [address] [place] Rh Nom (Bld) Positive Normal [facility] Comment on above: Order Comment: Speci men Type: BLOOD SPECIMENOrdering Facility: [facility] Address: [address] [place] [address] Performed By: #### T SCR ####[facility] LABCLIA [id number] [place] [address] [place] TYPE AND SCREEN EXPIRATION 07/08/2025 23:59 Normal [facility] Comment on above: Order Comment: Speci men Type: BLOOD SPECIMENOrdering Facility: [facility] Address: [address] [place] [address] Performed By: #### T [facility] ####[facility] LABCLIA [id number] [address] OF [facility] [place] 06-30-2025 CNPN Telephone (NSCAMN) JAYA HOPSON ([id number]) 1995 F Date Time Provider Department 06/30/25 RICKIE SANCHEZ [facility] During your visit today, we recorded the following information about you: Sukhdeep Mujica 06/30/2025 10:47 AM Signed General Call Caller : Jaya Contact Reason for Call : Calling to check the status of [place] paperwork. Patient requesting return call ? Yes Vandana Campbell RN 07/07/2025 4:35 PM Signed Paperwork completed and sent to provider for review and signature via Handprint Allergies As of Date: 06/30/2025 Noted Allergy Reaction FLUOCINOLONE 08/11/2014 10 - Anaphylaxis AMOXICILLIN 08/11/2014 4 - Hives Date Reviewed: 06/23/2025 Reviewed by: Alin Ann APRN.HIDE CURER - Fully Assessed Reason for Visit: [place] Paperwork [418] Prescriptions as of 07/07/2025 - medroxyPROGESTERone (DEPO-PROVERA) 150 mg/mL injection Inject 1 mL intramuscularly every 12 weeks. - galcanezumab-gnlm (EMGALITY PEN) 120 mg/mL pen Inject 1 mL subcutaneously once every month. Do not shake. - ubrogepant (UBRELVY) 100 mg tablet Take 1 tablet by mouth as needed (take at onset of migraine, repeat in 2 hours). - sertraline (ZOLOFT) 50 mg tablet Take 50 mg by mouth once daily. - ARIPiprazole (ABILIFY) 5 mg tablet Take 5 mg by mouth every afternoon. - traZODone (DESYREL) 50 mg tablet TAKE 1/2 (ONE-HALF) TABLET BY MOUTH ONCE DAILY AT BEDTIME NEEDED - albuterol HFA (PROVENTIL HFA, VENTOLIN HFA) 90 mcg/actuation inhaler Inhale 2 Puffs as instructed every 4 hours as needed for wheezing/shortness of breath. - mv-min/iron/folic/calci um/vitK (WOMEN'S MULTIVITAMIN ORAL) Take 2 tablets by mouth once daily. - Magnesium 250 mg tab Take 250 mg by mouth once daily. - Biotin 10,000 mcg cap Take 1 capsule by mouth once daily. - cholecalciferol (VITAMIN D-3) 50 mcg (2,000 unit) tablet Take 1,000 Units by mouth once daily. - calcium carbonate (CALCIUM 600 ORAL) Take 1 tablet by mouth three times a day. - thiamine (VITAMIN B-1) 50 mg tablet Take 50 mg by mouth once daily. - cyanocobalamin (VITAMIN B-12) 500 mcg tablet Take 1 tablet by mouth every other week. Facility-Administered Medications as of 07/07/2025 - methocarbamol 750 mg tab(s) (ROBAXIN) (Oct) - senna-docusate 8.6-50 mg 2 tablet (SENNA-S) (Oct) - morphine 2 mg injection (Oct) - lidocaine 4 % 2 patch (SALONPAS) (Oct) - lidocaine patch - REMOVE (Oct) - lidocaine - VERIFY PATCH (Oct) - albuterol HFA 90 mcg/actuation 2 puff (PROVENTIL HFA, VENTOLIN HFA) (Oct) - traZODone 25 mg tab(s) (DESYREL) (Oct) - cholecalciferol 1,000 Units tab(s) (VITAMIN D3) (Oct) - cyanocobalamin 500 mcg tab(s) (VITAMIN B-12) (Oct) - magnesium oxide 200 mg tab(s) (MAG-OX) (Oct) - thiamine 50 mg tab(s) (VITAMIN B1) (Oct) - ondansetron (PF) 4 mg injection (ZOFRAN) (Oct) - prochlorperazine 10 mg injection (COMPAZINE) (Oct) - NaCl 0.9% iv flush bag (Oct) - acetaminophen 1,000 mg tab(s) (TYLENOL) (Oct) - oxyCODONE IR 5-10 mg tab(s) (ROXICODONE) (Oct Hold) - hydrALAZINE 5-20 mg injection (APRESOLINE) (Oct) - ARIPiprazole 5 mg tablet (ABILIFY) (Oct) - sertraline 50 mg tab(s) (ZOLOFT) (Oct) Problem List As Of Date 06/30/2025 Noted Resolved Chiari malformation type I (HCC) [G93.5] 08/20/2017 Vision blurred [H53.8] 08/20/2017 Dizziness and giddiness [R42] 08/20/2017 Nonintractable headache [R51.9] 08/20/2017 Brain lesion [G93.9] 08/20/2017 Migraine with aura and without status migrainos*10/14/2017 Imbalance [R26.89] 01/29/2024 Posture abnormality [R29.3] 01/29/2024 Dizziness [R42] 01/29/2024 Mild intermittent asthma with acute exacerbatio*02/05/2024 Obesity, Class I, BMI 30-34.9 [E66.811] 02/19/2024 Anxiety and depression [F41.9, F32.A] 04/13/2024 Gastroesophageal reflux disease without esophag*11/26/2023 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 Given both written and verbal instructions re : Skin prep, wound care, pain management and post op restrictions. Provided to patient: [facility] [place] Surgery Guide, skin prep supplies, Spine Surgery Pre/post op education packet. Yes Reviewed with patient to report to desk JYadaHome for surgery ? Yes. Reviewed with the patient to call [phone] the day before to get surgery report time? Yes. Patient aware eat nothing after midnight prior to surgery, clear liquids only until 2 hours before report time. Yes. Patient aware surgery will be INPATIENT. Discussed care post discharge : Self care. Does patient have transportation to and from surgery ? Yes. Falls Education provided ? Yes Nasal swab obtained ? Yes. Patient instructed in mupirocin treatment : NEGATIVE. Questions answered and patient voice(s) understanding via teach back. Physical Therapy : NO Additional Comments : Post -op Support parents. Vandana Campbell RN Referring Provider: RICKIE SANCHEZ [[id number]] Allergies As of Date: 06/28/2025 Noted Allergy Reaction FLUOCINOLONE 08/11/2014 10 - Anaphylaxis AMOXICILLIN 08/11/2014 4 - Hives Date Reviewed: 06/23/2025 Reviewed by: Alin Ann APRN.HIDE CURER - Fully Assessed Primary Visit Diagnosis:Chiari malformation type I (HCC) [G93.5] Prescriptions as of 06/28/2025 - medroxyPROGESTERone (DEPO-PROVERA) 150 mg/mL injection Inject 1 mL intramuscularly every 12 weeks. - galcanezumab-gnlm (EMGALITY PEN) 120 mg/mL pen Inject 1 mL subcutaneously once every month. Do not shake. - ubrogepant (UBRELVY) 100 mg tablet Take 1 tablet by mouth as needed (take at onset of migraine, repeat in 2 hours). - sertraline (ZOLOFT) 25 mg tablet Take 25 mg by mouth once daily. - ARIPiprazole (ABILIFY) 2 mg tablet Take 1 tablet by mouth every afternoon. - traZODone (DESYREL) 50 mg tablet TAKE 1/2 (ONE-HALF) TABLET BY MOUTH ONCE DAILY AT BEDTIME NEEDED - albuterol HFA (PROVENTIL HFA, VENTOLIN HFA) 90 mcg/actuation inhaler Inhale 2 Puffs as instructed every 4 hours as needed for wheezing/shortness of breath. - mv-min/iron/folic/calci um/vitK (WOMEN'S MULTIVITAMIN ORAL) Take 2 tablets by mouth once daily. - Magnesium 250 mg tab Take 250 mg by mouth once daily. - Biotin 10,000 mcg cap Take 1 capsule by mouth once daily. - cholecalciferol (VITAMIN D-3) 50 mcg (2,000 unit) tablet Take 1,000 Units by mouth once daily. - calcium carbonate (CALCIUM 600 ORAL) Take 1 tablet by mouth three times a day. - thiamine (VITAMIN B-1) 50 mg tablet Take 50 mg by mouth once daily. - cyanocobalamin (VITAMIN B-12) 500 mcg tablet Take 1 tablet by mouth every other week. Facility-Administered Medications as of 06/28/2025 - medroxyPROGESTERone 150 mg injection (DEPO-PROVERA) Problem List As Of Date 06/28/2025 Noted Resolved Chiari malformation type I (HCC) [G93.5] 08/20/2017 Vision blurred [H53.8] 08/20/2017 Dizziness and giddiness [R42] 08/20/2017 Nonintractable headache [R51.9] 08/20/2017 Brain lesion [G93.9] 08/20/2017 Migraine with aura and without status migrainos*10/14/2017 Imbalance [R26.89] 01/29/2024 Posture abnormality [R29.3] 01/29/2024 Dizziness [R42] 01/29/2024 Mild intermittent asthma with acute exacerbatio*02/05/2024 Obesity, Class I, BMI 30-34.9 [E66.811] 02/19/2024 Anxiety and depression [F41.9, F32.A] 04/13/2024 Gastroesophageal reflux disease without esophag*11/26/2023 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] 08/31/2024 Encounter Status:Closed by VANDANA CAMPBELL on 06/28/25 Normal [facility] Office Visiton 06-25-2025 Follow-up visit [id number] Jaya Hopson 1995 F Date Provider Department Center 06/25/2025 [id number] GARCIA [facility] None Family History Problem Relation Age of Onset Other Mother Comments: heart problems Hypertension Mother Diabetes Mother Stroke Father Cancer Father Obesity Father Diabetes Father Colon cancer Paternal Grandfather Cancer Paternal Grandfather Cancer Maternal Grandmother Cancer Other Alcohol abuse Father Drug abuse Father Kidney disease Sister Cancer Maternal Grandfather Cancer Maternal Grandfather Family Status - Relation Status Age at Mother Father Paternal Grandfather Maternal Grandmother Other Maternal Grandfather Alive Sister Alive Maternal Grandfather Alive Level of Service:73489 CA OFFICE/OUTPATIENT ESTABLISHED MOD MDM 30 MIN Reason for Visit and Comments: Bariatrics Post Op Follow-up [884] - [facility] Progress Noteon 06-25-2025 Progress Note BARIATRIC CARE [facility] BROCK NOTE POST WEIGHT LOSS SURGERY FOLLOW UP Patient: Jaya Hopson Service Date: 06/25/2025 Patient is 2 year(s) s/p RnY Gastric Bypass Today's Metrics: Surgical Visits (Including FPOV) Height: 5' 5 (165.1 cm) Weight: 198 lb 3.2 oz (89.9 kg) BMI: 32.98 Weight Change: 1.6 lbs Total Weight Change: -104.8 lbs % EBWL: 63% Post-op Weight Metrics: Surgical Visits (Including FPOV) Height: 5' 5 (165.1 cm) Weight: 198 lb 3.2 oz (89.9 kg) BMI: 32.98 Weight Change: 1.6 lbs Total Weight Change: -104.8 lbs % EBWL: 63% (From Surgical Weight Loss Tracker) Patient has the following questions: None Reported Pain: Patient rates pain on scale 0-10 as: 0 Exercise Compliance: Exercising: yes If yes: Type: walking Times per week: 5 Min per session: 30 Falls Risk Assessment Patient does not take medications which affect BP or mental status Patient does not t have newly prescribed or changed dosage of medications within past 30 days which affect BP or mental status Patient has not fallen in the past 2 months Patient does not t demonstrate unsteady gait Patient uses the following ambulatory assistive devices: none Patient states the presence of the following traits which increases risk of fall: none Patient is not on home O2 Pre-op Weight Metrics: Labs Completed: no - If NO, patient instructed to get labs drawn today or GIL If YES: Labs completed at [facility]? no If yes see Labs Tab [facility]? N/A If yes see Encounters Tab - Orders only - Historical Provider - Date: Completed by: Sukhdeep Chan MA [facility] Basic metabolic 2000 panelon 06-23-2025 Anion gap [Moles/Vol] 10 mmol/L Normal 8-15 [facility] Comment on above: Order Comment: Speci men Type: BLOOD SPECIMENOrdering Facility: [facility] Address: [address] [place] [address] Performed By: #### 2 4321-2 ####[facility] [id number] [place] [address] [place] Calcium [Mass/Vol] 9.4 mg/dL Normal 8.5-10.2 [facility] Comment on above: Order Comment: Speci men Type: BLOOD SPECIMENOrdering Facility: [facility] Address: [address] [place] [address] Performed By: #### 2 4321-2 ####[facility] TRISHNORTH COUNTRY HOSPITALWNCLIA [id number] [place] [address] [place] Chloride [Moles/Vol] 107 mmol/L Normal 98-107 [facility] Comment on above: Order Comment: Speci men Type: BLOOD SPECIMENOrdering Facility: [facility] Address: [address] [place] [address] Performed By: #### 2 4321-2 ####[facility] TRISH MILLTOWNCLIA [id number] [place] [address] [place] CO2 [Moles/Vol] 23 mmol/L Normal 22-30 [facility] Comment on above: Order Comment: Speci men Type: BLOOD SPECIMENOrdering Facility: [facility] Address: [address] [place] [address] Performed By: #### 2 4321-2 ####[facility] SUNDAYCLEARWATERMISBAH [id number] [place] [address] [place] Creatinine [Mass/Vol] 1.06 mg/dL High 0.58-0.96 [facility] Comment on above: Order Comment: Speci men Type: BLOOD SPECIMENOrdering Facility: [facility] Address: [address] [place] [address] Performed By: #### 2 4321-2 ####[facility]ITALNCMO[facility] [id number] [place] [address] [place] eGFRcr SerPlBld CKD-EPI 2020 73 mL/min/1.73m??? Normal >=60 [facility] Comment on above: Order Comment: Speci men Type: BLOOD SPECIMENOrdering Facility: [facility] Address: [address] [place] [address] Result Comment: Angela mated Glomerular Filtration Rate (eGFR) is calculated using the 2020 CKD-EPI creatinine equation. This equation utilizes serum creatinine, sex, and age as parameters. The creatinine assay has traceable calibration to isotope dilution-mass spectrometry. Refer to KDIGO guidelines for clinical interpretation. In patients with unstable renal function, e.g. those with acute kidney injury, the eGFR may not accurately reflect actual GFR. Performed By: #### 2 4321-2 ####[facility] HOSPITALNCLIA [id number] [place] [address] [place] Glucose [Mass/Vol] 89 mg/dL Normal 74-99 [facility] Comment on above: Order Comment: Speci men Type: BLOOD SPECIMENOrdering Facility: [facility] Address: [address] [place] [address] Result Comment: The English Diabetes Association (ADA) provides guidance for cutoff values for fasting glucose and random glucose. The ADA defines fasting as no caloric intake for at least 8 hours. Fasting plasma glucose results between 100 to 125 mg/dL indicate increased risk for diabetes (prediabetes). Fasting plasma glucose results greater than or equal to 126 mg/dL meet the criteria for diagnosis of diabetes. In the absence of unequivocal hyperglycemia, results should be confirmed by repeat testing. In a patient with classic symptoms of hyperglycemia or hyperglycemic crisis, random plasma glucose results greater than or equal to 200 mg/dL meet the criteria for diagnosis of diabetes. Reference: Standards of Medical Care in Diabetes 2016, English Diabetes Association. Diabetes Care. 2016.39(Suppl 1). Performed By: #### 2 4321-2 ####[facility] MILLWVALIA [id number] [place] [address] [place] Potassium [Moles/Vol] 4.1 mmol/L Normal 3.7-5.1 [facility] Comment on above: Order Comment: Speci men Type: BLOOD SPECIMENOrdering Facility: [facility] Address: [address] [place] [address] Performed By: #### 2 4321-2 ####[facility]ARN[facility] HOSPITALLIA [id number] [place] [address] [place] Sodium [Moles/Vol] 140 mmol/L Normal 136-144 [facility] Comment on above: Order Comment: Lorrii casey Type: BLOOD SPECIMENOrdering Facility: [facility] Address: [address] [place] [address] Performed By: #### 2 4321-2 ####[facility] SOUTHWNCLIA [id number] [place] [address] [place] Urea nitrogen [Mass/Vol] 12 mg/dL Normal 7-21 [facility] Comment on above: Order Comment: Lorrii men Type: BLOOD SPECIMENOrdering Facility: [facility] Address: [address] [place] [address] Performed By: #### 2 4321-2 ####[facility] SOUTHWNCLIA [id number] [place] [address] [place] CBC panel Auto (Bld)on 06-23 Erythrocyte distribution width (RBC) [Ratio] 13.0 % Normal 11.5-15.0 [facility] Comment on above: Order Comment: Speci men Type: BLOOD SPECIMENOrdering Facility: [facility] Address: [address] [place] [address] Performed By: #### 5 8410-2 ####[facility] COMMUN[facility] HOSPITALMISBAH [id number] [address] [place] Hematocrit (Bld) [Volume fraction] 42.0 % Normal 36.0-46.0 [facility] Comment on above: Order Comment: Speci men Type: BLOOD SPECIMENOrdering Facility: [facility] Address: [address] [place] [address] Performed By: #### 5 8410-2 ####[facility] COMMUN[facility] HOSPITALMISBAH [id number] [address] [place] Hemoglobin (Bld) [Mass/Vol] 13.9 g/dL Normal 11.5-15.5 [facility] Comment on above: Order Comment: Speci men Type: BLOOD SPECIMENOrdering Facility: [facility] Address: [address] [place] [address] Performed By: #### 5 8410-2 ####[facility] HOSPITALMISBAH [id number] [place] [address] [place] MCH (RBC) [Entitic mass] 30.2 pg Normal 26.0-34.0 [facility] Comment on above: Order Comment: Speci men Type: BLOOD SPECIMENOrdering Facility: [facility] Address: [address] [place] [address] Performed By: #### 5 8410-2 ####[facility] HOSPITALNESSA [id number] [place] [address] [place] MCHC (RBC) [Mass/Vol] 33.1 g/dL Normal 30.5-36.0 [facility] Comment on above: Order Comment: Speci men Type: BLOOD SPECIMENOrdering Facility: [facility] Address: [address] [place] [address] Performed By: #### 5 8410-2 ####[facility] SOUTHWNCLIA [id number] [place] [address] [place] MCV (RBC) [Entitic vol] 91.1 fL Normal 80.0-100.0 [facility] Comment on above: Order Comment: Speci men Type: BLOOD SPECIMENOrdering Facility: [facility] Address: [address] [place] [address] Performed By: #### 5 8410-2 ####[facility] [id number] [place] [address] [place] Nucleated RBC (Bld) [#/Vol] 10*3/uL Normal <0.01 [facility] Comment on above: Order Comment: Speci men Type: BLOOD SPECIMENOrdering Facility: [facility] Address: [address] [place] [address] Performed By: #### 5 8410-2 ####[facility] HOSPITALNCLIA [id number] [place] [address] [place] Platelet mean volume (Bld) [Entitic vol] 11.9 fL Normal 9.0-12.7 [facility] Comment on above: Order Comment: Speci men Type: BLOOD SPECIMENOrdering Facility: [facility] Address: [address] [place] [address] Performed By: #### 5 8410-2 ####[facility] COMMUN[facility] HOSPITALNCLI [id number] [place] [address] [place] Platelets (Bld) [#/Vol] 134 10*3/uL Low 150-400 [facility] Comment on above: Order Comment: Speci men Type: BLOOD SPECIMENOrdering Facility: [facility] Address: [address] [place] [address] Performed By: #### 5 8410-2 ####[facility] HOSPITALNCLINDAA [id number] [place] [address] [place] RBC (Bld) [#/Vol] 4.61 10*6/uL Normal 3.90-5.20 [facility] Comment on above: Order Comment: Speci men Type: BLOOD SPECIMENOrdering Facility: [facility] Address: [address] [place] [address] Performed By: #### 5 8410-2 ####[facility] HOSPITALNCLIA [id number] [place] [address] [place] WBC (Bld) [#/Vol] 4.41 10*3/uL Normal 3.70-11.00 [facility] Comment on above: Order Comment: Speci men Type: BLOOD SPECIMENOrdering Facility: [facility] Address: [address] [place] [address] Performed By: #### 5 8410-2 ####[facility] COMMUN[facility] HOSPITALNCA [id number] [place] [address] [place] HISTORY PHYSICALon HISTORY PHYSICAL HNO ID: [id number] Author: ALIN ANN APRN.HIDE CURER Service: ? Author Type: Nurse Practitioner Type: H&P Filed: 06/29/2025 13:10 Note Text: [facility] HISTORY AND PHYSICAL EXAMINATION SERVICE DATE: 06/23/2025 SERVICE TIME: 1:09 PM PRIMARY CARE PHYSICIAN: Cem Boggs DO Assessment Patient has the following medical conditions which may affect deepti-operative course: 1. Migraine with aura and without status migrainosus, not intractable (G43.109) - Migraines occurring approximately once weekly, lasting several days; currently managed with Ubrelvy, which alleviates pain but not associated brain fog. - Occasional visual aura and paresthesias in fingers and hands. - Hold Emgality and Ubrelvy on day of surgery. 2. Chiari malformation type I (HCC) (G93.5) 3. Dizziness and giddiness (R42) - Recent episodes of near-syncope; last fainting episode occurred 1-2 months ago. 4. Anxiety and depression (F41.9) - Stable on Zoloft and Abilify; no suicidal or homicidal ideation. - Continue Zoloft and Abilify on day of surgery; continue trazodone night before surgery. 5. Mild intermittent asthma with acute exacerbation (HCC) (J45.21) - No recent exacerbations; last albuterol use was during a mild COVID episode a few years ago. - Continue albuterol as needed; use and bring inhaler on day of surgery. 6. Gastroesophageal reflux disease without esophagitis (K21.9) - No current symptoms; no active treatment required. 7. Obesity, Class I, BMI 30-34.9 (E66.811) - History of gastric bypass in 2022; no post-op nausea or vomiting. ANESTHESIA FINDINGS: Intubation History: No history of difficult intubation. No abnormal airway history Significant Anesthesia Considerations: none Airway History: No history of difficult airway No abnormal airway history Fernandez Activity Status Index: METS: Walk indoors, such as around the house (1.75 METs) Do light work around the house, such as dusting or washing dishes (2.70 METs) Take care of self; that is eating, dressing, bathing, using the toilet (2.75 METs) Walk a block or two on level ground (2.75 METs) Do moderate work around the house, such as vacuuming, sweeping floors, or carrying in groceries (3.50 METs) Climb a flight of stairs or walk up a hill (5.50 METs) Participate in moderate recreational activites, such as golf, bowling, dancing, doubles tennis, or throwing a baseball or football (6.00 METs) DASI Score: 24.95 Patient denies any chest pain or undue shortness of breath with the above physical activity. Clinical Frailty Scale: 3. Well, with treated comorbid disease STOP-Bang Score: Denies snoring loudly Denies feeling tired, fatigued, or sleepy during the daytime Has not been observed to stop breathing or choking/gasping during sleep Denies having high blood pressure BMI less than or equal to 35 kg/m2 Patient 50 years old or younger Non-male patient STOP-Bang Score: 0 I - PHYSICAL EVALUATION AIRWAY Patient intubated: No. Tracheostomy tube not present Mallampati: II. TM distance: >3 FB. Neck ROM: full ROM without neurological symptoms. Mouth openin FB. Short neck: no. Thick neck: no DENTAL Dental findings: teeth intact. II - ANESTHESIA PLAN Anesthetic plan additional comments: *PACC/TCI - anesthesia choice. Informed Consent Prepared for Surgery: optimally prepared for surgery, pending [see comment]. Labs reviewed and acceptable for procedure. ADDENDUM: June 29, 2025 1:09 PM Prior EKG (08/31/24) reviewed and acceptable for procedure. CONSULTS: Patient does not require consults for optimization at this time Planned Anesthetic: anesthesia choice The Following Tests/Procedures Have Been Initiated: No orders of the defined types were placed in this encounter. REASON FOR VISIT: Jaya Hopson is a 30 year old female who is scheduled for Procedure(s): CRANIECTOMY SUBOCCIPITAL W/ CERV LAMI FOR DECOMPRESS W/ DURAL GRAFT (N/A) at the request of Dr. Becky Mitchell for consultation. My final recommendation will be communicated back to the requesting physician by way of shared medical record or letter. Subjective The patient has the following: COVID-19 Immunization Status Current Care Gaps Covid-19 Vaccine ( season) Overdue since 05/03/2025 05/15/2024 Imm Admin: COVID-19 vaccine, age 12+ yr (PFIZER-BIONTECH COMIRNATY) 08/28/2021 Imm Admin: COVID-19 original vaccine, age 12+ yr, monovalent (PFIZER-BIONTECH - PURPLE TOP) 01/11/2021 Imm Admin: COVID-19 original vaccine, age 12+ yr, monovalent (PFIZER-BIONTECH - PURPLE TOP) Only the first 3 history entries have been loaded, but more history exists. CHIEF COMPLAINT: pre op HPI: Jaya is a 30-year-old female with anxiety, depression, asthma, GERD, and Chiari malformation presenting for preoperative evaluation. Jaya reports weekly migraines that last several day (more content not included)... Normal [facility] MRI CERVICAL SPINE WO IVCONo n 06-23-2025 MRI CERVICAL SPINE WO IVCON * * *Final Report* * * DATE OF EXAM: Jun 23 2025 7:40AM CHASE 0297 - MRI CERVICAL SPINE WO IVCON / PROCEDURE REASON: multiple diagnoses * * * * Physician Interpretation * * * * EXAMINATION: MRI CERVICAL SPINE WO IVCON CLINICAL HISTORY: Chiari I malformation (HCC) Pre-op testing TECHNIQUE: Routine cervical spine MR protocol without gadolinium. Additional CINEflow sequences performed. MQ: [id number] COMPARISON: MRI cervical spine 12/21/2024 RESULT: Counting reference: Craniocervical junction. Anatomic Variants: None. Localizer images: No additional findings. Alignment: Straightening of the cervical lordosis, possibly positional. Craniocervical junction: Redemonstrated cerebellar tonsillar ectopia, measuring 6 mm on the right. Cord: The visualized cord is within normal limits of signal intensity and morphology. CSF flow: Preserved CSF flow ventral to the imaged upper cervical spinal cord extending into the premedullary and prepontine cisterns. Preserved CSF flow dorsal to the imaged upper cervical spinal cord extending into the cisterna magna, across the foramen of Magendie and within the fourth ventricle. Flow across the cerebral aqueduct in not clearly demonstrated. Bone marrow signal/fracture: No evidence of pathologic marrow infiltration. No evidence of prior fracture. Partially imaged is T2 heterogeneity involving the RIGHT petrous apex with corresponding T1 hyperintensity. Correlating with prior brain imaging dated back to 2017, lesion is T1 hyperintense with heterogeneous predominantly T2 hyperintensity, centered within the RIGHT petrous apex, measuring approximately 1.8 transverse by 1.2 AP centimeters, minimally increased in size since 2017. Cervical soft tissues: The paraspinal soft tissues are within normal limits. C2-C3: Canal and foramina are patent. C3-C4: Canal and foramina are patent. C4-C5: Canal and foramina are patent. C5-C6: Canal and foramina are patent. C6-C7: Canal and foramina are patent. C7-T1: Canal and foramina are patent. IMPRESSION: Unchanged right cerebellar tonsillar ectopia/Chiari I. Normal CSF flow. Partially imaged T1 hyperintense RIGHT petrous apex lesion could reflect an underlying cholesterol granuloma or alternatively high proteinaceous trapped fluid/mucocele. Anatomic Variant: None. Assume 7 cervical vertebrae with counting from the craniocervical junction. ISN STAFF MESSAGE RESULTS Acuity: ISN Staff Message Result COMMUNICATION: The ordering provider will be notified of the results via Epic staff message or phone message by Imaging Support Services within 2 business days of report finalization. --END OF FINDING-- Forensic Anthropologist: CHANELLE Transcribe Date/Time: Jun 23 2025 8:08A Dictated by : GUERITA MCCAIN, DO This examination was interpreted and the report reviewed and electronically signed by: HARRISON BOBBY MD on Jun 23 2025 8:46AM EST [id number] Normal [facility] STAPHYLOCOCCUS AUREUS AND MR SA SCREEN, PCR, NASALon 06-23-2025 S. aureus and MRSA panel NAOMIE+probe (Nose) Not detected Normal Not Detected [facility] Comment on above: Order Comment: Speci men Type: SWABOrdering Facility: [facility] Address: [address] [place] [address] Performed By: #### S APCR ####[facility] LABCLIA [id number] [address] OF [facility] Office Visiton 05-05-2025 Follow-up visit [id number] Jaya Hopson 1995 F Date Provider Department Center 05/05/2025 OBDULIA [facility] None Family History Problem Relation Age of Onset Other Mother Comments: heart problems Hypertension Mother Diabetes Mother Stroke Father Cancer Father Obesity Father Diabetes Father Colon cancer Paternal Grandfather Cancer Paternal Grandfather Cancer Maternal Grandmother Cancer Other Alcohol abuse Father Drug abuse Father Kidney disease Sister Cancer Maternal Grandfather Family Status - Relation Status Age at Mother Father Paternal Grandfather Maternal Grandmother Other Maternal Grandfather Alive Sister Alive Maternal Grandfather Alive Level of Service:35418 CA OFFICE/OUTPATIENT ESTABLISHED LOW MDM 20 MIN Reason for Visit and Comments: Bariatrics Post Op Follow-up [884] - POP F/U Normal [facility] Progress Noteon 05-05-2025 Progress Note [facility] ROOMING NOTE POST WEIGHT LOSS SURGERY WEIGHT LOSS MANAGEMENT Patient: Jaya Hopson Date of : 1995 Service Date: 05/05/2025 This patient is patient for the evaluation today. Reason patient is here today: follow up. Date of Weight Loss Surgery: Procedure Performed: Laparoscopic Tonio-en-Y Gastric Bypass Initial Weight: @FLOWLAST([id number])@ Today's weight has increased from the last visit Pain: Patient rates pain on scale 0-10 as: 0 Falls Risk Assessment Patient does not take medications which affect BP or mental status Patient does not have newly prescribed or changed dosage of medications within past 30 days which affect BP or mental status Patient has not fallen in the past 2 months Patient does not demonstrate unsteady gait Patient uses the following ambulatory assistive devices: none Patient states the presence of the following traits which increases risk of fall: none Patient is low risk for falls. Patient is not on home O2 Post-op Weight Metrics: %EBWL: % EBWL: 64% Weight Change Since Last Visit: Weight Change: 16.6 lbs Weight Change from Highest Pre-op Weight: Total Weight Change: -106.4 lbs Completed by: Andrea Johnson MA [facility] CNPNon 05-04-2025 [facility] Telephone [facility] JAYA HOPSON ([id number]) 1995 F Date Time Provider Department 05/04/25 [facility] During your visit today, we recorded the following information about you: Sukhdeep Mujica 05/04/2025 11:02 AM Signed General Call Caller : Jaya Contact Reason for Call : Pt has questions regarding upcoming surgery. She would like to discuss how long she will be off of work. Patient requesting return call ? Yes Vandana Campbell, GABE 05/06/2025 8:41 AM Signed Called patient via phone. No answer and VM unidentified. Left a message requesting a return call if needed or patient may send a MC message. Allergies As of Date: 05/04/2025 Noted Allergy Reaction FLUOCINOLONE 08/11/2014 10 - Anaphylaxis AMOXICILLIN 08/11/2014 4 - Hives Date Reviewed: 04/15/2025 Reviewed by: Aspen Tamez, GABE - Fully Assessed Reason for Visit: Patient Question [0614] Prescriptions as of 05/06/2025 - medroxyPROGESTERone (DEPO-PROVERA) 150 mg/mL injection Inject 1 mL intramuscularly every 12 weeks. - galcanezumab-gnlm (EMGALITY PEN) 120 mg/mL pen Inject 1 mL subcutaneously once every month. Do not shake. - ubrogepant (UBRELVY) 100 mg tablet Take 1 tablet by mouth as needed (take at onset of migraine, repeat in 2 hours). - sertraline (ZOLOFT) 25 mg tablet Take 25 mg by mouth once daily. - ARIPiprazole (ABILIFY) 2 mg tablet Take 1 tablet by mouth every afternoon. - traZODone (DESYREL) 50 mg tablet TAKE 1/2 (ONE-HALF) TABLET BY MOUTH ONCE DAILY AT BEDTIME NEEDED - albuterol HFA (PROVENTIL HFA, VENTOLIN HFA) 90 mcg/actuation inhaler Inhale 2 Puffs as instructed every 4 hours as needed for wheezing/shortness of breath. - mv-min/iron/folic/calci um/vitK (WOMEN'S MULTIVITAMIN ORAL) Take 2 tablets by mouth once daily. - Magnesium 250 mg tab Take 250 mg by mouth once daily. - Biotin 10,000 mcg cap Take 1 capsule by mouth once daily. - cholecalciferol (VITAMIN D-3) 50 mcg (2,000 unit) tablet Take 1,000 Units by mouth once daily. - calcium carbonate (CALCIUM 600 ORAL) Take 1 tablet by mouth three times a day. - thiamine (VITAMIN B-1) 50 mg tablet Take 50 mg by mouth once daily. - cyanocobalamin (VITAMIN B-12) 500 mcg tablet Take 1 tablet by mouth every other week. Facility-Administered Medications as of 05/06/2025 - medroxyPROGESTERone 150 mg injection (DEPO-PROVERA) Problem List As Of Date 05/04/2025 Noted Resolved Chiari malformation type I (HCC) [G93.5] 08/20/2017 Vision blurred [H53.8] 08/20/2017 Dizziness and giddiness [R42] 08/20/2017 Nonintractable headache [R51.9] 08/20/2017 Brain lesion [G93.9] 08/20/2017 Migraine with aura and without status migrainos*10/14/2017 Imbalance [R26.89] 01/29/2024 Posture abnormality [R29.3] 01/29/2024 Dizziness [R42] 01/29/2024 Mild intermittent asthma with acute exacerbatio*02/05/2024 Obesity, Class I, BMI 30-34.9 [E66.811] 02/19/2024 Anxiety and depression [F41.9, F32.A] 04/13/2024 Encounter Status:Closed by VANDANA CAMPBELL on 05/06/25 [facility] CNNURSEon 04-15-2025 CNNURSE Nurse Visit (OBGYWM) JAYA HOPSON ([id number]) 1995 F Date Time Provider Department 04/15/25 4:00 PM [facility] W[facility] OBGYWM During your visit today, we recorded the following information about you: Blood pressure Weight 120/84 90.3 kg Aspen Tamez, GABE 04/15/2025 4:12 PM Signed Patient identified by name and date of . Jaya Hopson is here for a Depo Provera injection. Patient brought medication. Date last injected: 01/21/25 Depo-Provera, 150 mg, administered IM right deltoid, Lot # [id number], expiration date 05/02/2029. Depo-Provera was given without incident. Date of last menses: Patient's last menstrual period was 05/04/2024 (approximate). Irregular bleeding - No Menses ceased - Yes STD prevention discussed: Yes Patient instructed to return to clinic in 12 weeks. [email or web address] Provider Concha Stubbs DO was present in office at time of injection. Aspen Tamez RN Allergies As of Date: 04/15/2025 Noted Allergy Reaction FLUOCINOLONE 08/11/2014 10 - Anaphylaxis AMOXICILLIN 08/11/2014 4 - Hives Date Reviewed: 04/15/2025 Reviewed by: Aspen Tamez RN - Fully Assessed Reason for Visit: Depo Provera Injection [1655] Primary Visit Diagnosis:Encounter for surveillance of other contraceptive [Z30.49] Prescriptions as of 04/15/2025 - medroxyPROGESTERone (DEPO-PROVERA) 150 mg/mL injection Inject 1 mL intramuscularly every 12 weeks. - galcanezumab-gnlm (EMGALITY PEN) 120 mg/mL pen Inject 1 mL subcutaneously once every month. Do not shake. - ubrogepant (UBRELVY) 100 mg tablet Take 1 tablet by mouth as needed (take at onset of migraine, repeat in 2 hours). - sertraline (ZOLOFT) 25 mg tablet Take 25 mg by mouth once daily. - ARIPiprazole (ABILIFY) 2 mg tablet Take 1 tablet by mouth every afternoon. - traZODone (DESYREL) 50 mg tablet TAKE 1/2 (ONE-HALF) TABLET BY MOUTH ONCE DAILY AT BEDTIME NEEDED - albuterol HFA (PROVENTIL HFA, VENTOLIN HFA) 90 mcg/actuation inhaler Inhale 2 Puffs as instructed every 4 hours as needed for wheezing/shortness of breath. - mv-min/iron/folic/calci um/vitK (WOMEN'S MULTIVITAMIN ORAL) Take 2 tablets by mouth once daily. - Magnesium 250 mg tab Take 250 mg by mouth once daily. - Biotin 10,000 mcg cap Take 1 capsule by mouth once daily. - cholecalciferol (VITAMIN D-3) 50 mcg (2,000 unit) tablet Take 1,000 Units by mouth once daily. - calcium carbonate (CALCIUM 600 ORAL) Take 1 tablet by mouth three times a day. - thiamine (VITAMIN B-1) 50 mg tablet Take 50 mg by mouth once daily. - cyanocobalamin (VITAMIN B-12) 500 mcg tablet Take 1 tablet by mouth every other week. Facility-Administered Medications as of 04/15/2025 - medroxyPROGESTERone 150 mg injection (DEPO-PROVERA) Problem List As Of Date 04/15/2025 Noted Resolved Chiari malformation type I (HCC) [G93.5] 08/20/2017 Vision blurred [H53.8] 08/20/2017 Dizziness and giddiness [R42] 08/20/2017 Nonintractable headache [R51.9] 08/20/2017 Brain lesion [G93.9] 08/20/2017 Migraine with aura and without status migrainos*10/14/2017 Imbalance [R26.89] 01/29/2024 Posture abnormality [R29.3] 01/29/2024 Dizziness [R42] 01/29/2024 Mild intermittent asthma with acute exacerbatio*02/05/2024 Obesity, Class I, BMI 30-34.9 [E66.811] 02/19/2024 Anxiety and depression [F41.9, F32.A] 04/13/2024 Disposition: Return in 12 weeks (on 07/08/2025). Follow-up and Disposition History for Encounter Date Provider Department Center 04/15/2025 [id number]-[facility] *OBGYWWale Waller Encounter Status:Closed by ASPEN TAMEZ on 04/15/25 [facility] 36on 03-29-2025 36 Called left message requesting call back to schedule an appointment with Dr. Garcia in 4 weeks. [place] Office. Normal [facility] 25(OH)D3 [facility] 2024 25-hydroxyvitamin D3 [Mass/Vol] 61.0 ng/mL Normal 31.0-80.0 [facility] Comment on above: Order Comment: Speci men Type: BLOOD SPECIMENOrdering Facility: External Submitter Address: , , Result Comment: Clas sification of 25 [place] Vitamin D status: Deficiency/Insufficiency: < or = 30 ng/ml. Sufficiency/Optimal Levels: 31-80 ng/mL Toxicity: > 100 ng/mL. Test performed by chemiluminescent immunoassay. Performed By: #### 1 989-3 ####[facility] LABCLIA [id number] [address] [address] [facility] CBC panel Auto (Bld)on 03-12 Erythrocyte distribution width (RBC) [Ratio] 13.2 % Normal 11.5-15.0 [facility] Comment on above: Order Comment: Speci men Type: BLOOD SPECIMENOrdering Facility: External Submitter Address: , , Performed By: #### 5 8410-2 ####[facility] [id number] [address] [address] [facility] Hematocrit (Bld) [Volume fraction] 42.8 % Normal 36.0-46.0 [facility] Comment on above: Order Comment: Speci men Type: BLOOD SPECIMENOrdering Facility: External Submitter Address: , , Performed By: #### 5 8410-2 ####[facility] [id number] [address] [address] [facility] Hemoglobin (Bld) [Mass/Vol] 13.7 g/dL Normal 11.5-15.5 [facility] Comment on above: Order Comment: Speci men Type: BLOOD SPECIMENOrdering Facility: External Submitter Address: , , Performed By: #### 5 8410-2 ####[facility]UN[facility] [id number] [address] [address] [facility] MCH (RBC) [Entitic mass] 30.4 pg Normal 26.0-34.0 [facility] Comment on above: Order Comment: Speci men Type: BLOOD SPECIMENOrdering Facility: External Submitter Address: , , Performed By: #### 5 8410-2 ####[facility] LABIA [id number] [address] [address] [place] [facility] MCHC (RBC) [Mass/Vol] 32.0 g/dL Normal 30.5-36.0 [facility] Comment on above: Order Comment: Speci men Type: BLOOD SPECIMENOrdering Facility: External Submitter Address: , , Performed By: #### 5 8410-2 ####[facility] LABCLIA [id number] [facility] [facility] [address] [place] [address] [facility] MCV (RBC) [Entitic vol] 94.9 fL Normal 80.0-100.0 [facility] Comment on above: Order Comment: Speci men Type: BLOOD SPECIMENOrdering Facility: External Submitter Address: , , Performed By: #### 5 8410-2 ####[facility] LABIA [id number] [address] [place] [address] [facility] Nucleated RBC (Bld) [#/Vol] 10*3/uL Normal <0.01 [facility] Comment on above: Order Comment: Speci men Type: BLOOD SPECIMENOrdering Facility: External Submitter Address: , , Performed By: #### 5 8410-2 ####[facility] LABIA [id number] [address], [facility] Platelet mean volume (Bld) [Entitic vol] 14.5 fL High 9.0-12.7 [facility] Comment on above: Order Comment: Speci men Type: BLOOD SPECIMENOrdering Facility: External Submitter Address: , , Performed By: #### 5 8410-2 ####[facility] LABIA [id number] [address] [place] [address] [facility] Platelets (Bld) [#/Vol] 117 10*3/uL Low 150-400 [facility] Comment on above: Order Comment: Speci men Type: BLOOD SPECIMENOrdering Facility: External Submitter Address: , , Performed By: #### 5 8410-2 ####[facility] LABIA [id number] [address] [place] [address] [facility] [place] RBC (Bld) [#/Vol] 4.51 10*6/uL Normal 3.90-5.20 [facility] Comment on above: Order Comment: Speci men Type: BLOOD SPECIMENOrdering Facility: External Submitter Address: , , Performed By: #### 5 8410-2 ####[facility] LABIA [id number] [address] [address] [place] WBC (Bld) [#/Vol] 3.34 10*3/uL Low 3.70-11.00 [facility] Comment on above: Order Comment: Speci men Type: BLOOD SPECIMENOrdering Facility: External Submitter Address: , , Performed By: #### 5 8410-2 ####[facility] LABIA [id number] [address] [address] [place] Ferritin SerPl-mCncon 2024 Ferritin [Mass/Vol] 145.0 ng/mL Normal 14.7-205.1 [facility] Comment on above: Order Comment: Speci men Type: BLOOD SPECIMENOrdering Facility: External Submitter Address: , , Performed By: #### 1 9123-9, 2498-4, 2276-4 ####[facility] LABIA [id number] [address] [address] [place] Folate SerPl-mCncon 03-12-20 25 Folate [Mass/Vol] ng/mL Normal >4.7 [facility] Comment on above: Order Comment: Speci men Type: BLOOD SPECIMENOrdering Facility: External Submitter Address: , , Result Comment: A re sult of > 20 ng/mL is not necessarily indicative of a pathologic or treatable condition: it reflects a limitation of the test methodology. Assay reference range: 4.8 to 24.2 ng/mL. Suitable for detection of folate deficiency. Reference: Folate III (Folate III) [package insert V 1.0 [place]]. [facility], [place], [place]: July 2015. Performed By: #### 2 284-8, 2132-9 ####[facility] LABIA [id number] [address] [address] [place] Iron SerPl-mCncon 03-12-2025 Iron [Mass/Vol] 106 ug/dL Normal 41-186 [facility] Comment on above: Order Comment: Specsantos peña Type: BLOOD SPECIMENOrdering Facility: External Submitter Address: , , Performed By: #### 1 9123-9, 2498-4, 2275-12 ####[facility] LABIA [id number] [place] [id number] [place] Magn[facility] Magnesium [Mass/Vol] 2.2 mg/dL Normal 1.7-2.3 [facility] Comment on above: Order Comment: Speci casey Type: BLOOD SPECIMENOrdering Facility: External Submitter Address: , , Performed By: #### 1 9123-9, 2497-4, 2275-12 ####[facility] [id number] [place] [id number] [place] VITAMIN B1 (THIAMINE), WHOLE BLOODon 03-12-2025 Thiamine (Bld) [Moles/Vol] 179.5 nmol/L Normal 84.3-213.3 [facility] Comment on above: Order Comment: Ami peña Type: BLOOD SPECIMENOrdering Facility: External Submitter Address: , , Result Comment: This assay measures the concentration of thiamine diphosphate (TDP), the primary active form of vitamin B1. Approximately 90 percent of vitamin B1 present in whole blood is TDP. Thiamine and thiamine monophosphate, which comprise the remaining 10 percent, are not measured. This test was developed, and its performance characteristics determined by the [facility] Department of Pathology and Laboratory Medicine. It has not been cleared or approved by the FDA. The [facility] Department of Pathology and Laboratory Medicine is regulated under CLIA as qualified to perform high-complexity testing. This test is used for clinical purposes. It should not be regarded as investigational or for research. Performed By: #### B 1WB ####[facility] LABIA [id number] [address] [address] [place] Vit B12 SerPl-mCncon 025 Cobalamin (Vitamin B12) [Mass/Vol] 1283 pg/mL High 232-1245 [facility] Comment on above: Order Comment: Speci casey Type: BLOOD SPECIMENOrdering Facility: External Submitter Address: , , Performed By: #### 2 284-8, 2132-9 ####[facility] LABCLIA [id number] [place] [address] [place] Zinc SerPl-mCncon 03-12-2025 Zinc [Mass/Vol] 82 ug/dL Normal 60-120 [facility] Comment on above: Order Comment: Speci men Type: BLOOD SPECIMENOrdering Facility: External Submitter Address: , , Result Comment: This test was developed, and its performance characteristics determined by the [facility] Department of Pathology and Laboratory Medicine. It has not been cleared or approved by the FDA. The [facility] Department of Pathology and Laboratory Medicine is regulated under CLIA as qualified to perform high-complexity testing. This test is used for clinical purposes. It should not be regarded as investigational or for research. Performed By: #### 5 763-8 ####[facility] LABCLIA [id number] [address] [place] [id number] [phone] Faxed request to reconsider Deepak attached OV 02-17-25 [facility] [phone] Call to Bruno spoke to Jose Guadalupe. Case # [id number] Asks that I fax appeal to [phone]. Appeal originally sent February 26 via [facility]. [facility] [phone] 02-24-2025 [phone] PA submitted per pt request for [place]. Pt notified. 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 YAMIL is a 29 year old who presents for an annual gynecologic exam without complaints. She is not sexually active and requests no SSE today. Uses Depo Provera to regulate cycles Still get period: No LMP: irregular with Depo Provera control frequency: Always HPV vaccine: Unsure; HPV:N/A Last pap smear: 08/07/2023, normal History of abnormal pap: No, all prior PAP smears have been normal Bothersome pelvic pain: No Last mammogram: never Patient concerns for STD exposure: No. OB History Gravida0 Para0 Term0 Preterm0 AB0 Living0 SAB0 IAB0 Ectopic0 Multiple0 Live Births0 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 LMP: 05/04/2024, Injection Age at Menarche: 10 Age at First : Age at Menopause: 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 Comments: Sexual Activity: Not Currently; No partner data on record Contraception: Injection PAST MEDICAL HISTORY Diagnosis Date Asthma (HCC) Brain lesion Chiari malformation type I (HCC) Migraines Thrombocytopenia PAST SURGICAL HISTORY Procedure Laterality Date DENTAL SURGERY HX 2012 wisdom teeth removed GASTRIC BYPASS HX 11/21/2022 HAND SURGERY HX Left 2004 broken thumb repair TONSILLECTOMY AND ADENOIDECTOMY HX age 5 FAMILY HISTORY Problem Relation Age of Onset Diabetes Mother Hypertension Mother Heart Attack Mother Diabetes Father Prostate Cancer Father Stroke Father Diabetes Sister other (other) Sister No Known Problems Maternal Grandmother Lung Cancer Maternal Grandfather Colon Cancer Paternal Grandfather SOCIAL HISTORY Social History Tobacco Use Smoking status: Never Smokeless tobacco: Never Vaping Use Vaping status: Never Used Substance Use Topics Alcohol use: Not Currently Drug use: No REVIEW OF SYSTEMS Abdomen: No abdominal pain, nausea, vomiting, diarrhea, or constipation. No bloating, early satiety, indigestion, or increased flatulence. Bladder: No dysuria, gross hematuria, urinary frequency, urinary urgency, or incontinence. Breast: No breast lumps, nipple d/c, overlying skin changes, redness or skin retraction. Allergies and current medication updated:Yes SENSITIVE EXAM: The sensitive examination was discussed with the Patient or Patient's Authorized Grinder Mill Operator. As applicable, any other physician, advance practice provider, medical student, or other health professional student that will be observing or involved in the sensitive examination for educational or training purposes was discussed with the Patient or Authorized Grinder Mill Operator. The Patient or Authorized Grinder Mill Operator has agreed to proceed with the sensitive examination. (Sensitive examination includes inspection and/or palpation of the breasts, pelvis, prostate and anorectal regions). EXAM: BP 120/68 Ht [Pt declined[ (0.00m) Wt 0 lb (0.0kg) LMP 05/04/2024 GENERAL: pleasant, female in no apparent distress HEENT: Normocephalic, atraumatic, mucus membranes moist, and no lesions NECK: Supple and full range of motion DERMATOLOGY: Normal and without lesions BREAST: soft, non-tender, symmetric, no dominant mass, normal nipple-areolar complex, no lymphadenopathy, no nipple discharge, and fibrocystic changes CHEST: Normal inspiratory effort ABDOMEN: soft, non-tender, and no masses PELVIC: external genitalia normal, no vulvar lesions, good vaginal support, physiologic discharge present, normal appearing perineal body and perianal region BIMANUAL: deferred RECTOVAGINAL: deferred. NEURO: alert and oriented x3,exam grossly non-focal EXTREMITIES: normal ASSESSMENT/PLAN: 1) Health maintenance: Pap/HPV up to date. Nutrition, exercise and routine health maintenance exams reviewed. Lipids/glucose: followed by PCP 2) Contraception: Depo Provera. 3) STD screening: Declined STD check. 4) Follow up one year or sooner as needed Daniel Olivo APRN.CNM Allergies As of Date: 02/22/2025 Noted Allergy Reaction FLUOCINOLONE 08/11/2014 10 - Anaphylaxis AMOXICILLIN 08/11/2014 4 - Hives Date Reviewed: 02/22/2025 Reviewed by: Annita Rebolledo LPN - Fully Assessed Reason for Visit: Well Woman [1463] Primary Visit Diagnosis:Encounter for gynecological examination (general) (routine) without abnormal findings [Z01.419] Order(s):medroxyPROGEST ERone (DEPO-PROVERA) 150 mg/mL injectionInject 1 mL intramuscularly every 12 weeks.Disp: 1 mLRfl: 4 Prescriptions as of 02/22/2025 - medroxyPROGESTERone (DEPO-PROVERA) 150 mg/mL injection Inject 1 mL intramuscularly every 12 weeks. - galcanezumab-gnlm (EMGALITY PEN) (more content not included)... Normal [facility] 36on 02-17-2025 36 PA attempted receive d message: Message from Plan Member required to enroll in virtual care program before PA can be submitted. Asked pt to reach out to insurance regarding this message. Normal [facility] 36 ----- Message from Obdulia Garcia MD sent at 02/17/2025 7:47 AM EDT ----- Please criss toussaint and let the pt know Thank you [facility] Office Visiton 02-17-2025 Follow-up visit [id number] Jaya Hopson 1995 F Date Provider Department Center 02/17/2025 [id number] GARCIA [facility] None Family History Problem Relation Age of Onset Other Mother Comments: heart problems Hypertension Mother Diabetes Mother Stroke Father Cancer Father Obesity Father Diabetes Father Colon cancer Paternal Grandfather Cancer Paternal Grandfather Cancer Maternal Grandmother Cancer Other Family Status - Relation Status Age at Mother Father Paternal Grandfather Maternal Grandmother Other Level of Service:62463 CA OFFICE/OUTPATIENT ESTABLISHED MOD MDM 30 MIN Reason for Visit and Comments: Bariatrics Post Op Follow-up [884] - POP Annual [facility] Absolute lymphocyte countOrd ered By: Avi Russo on 01-27-2025 Lymphocytes Auto (Unsp spec) [#/Vol] 2.46 10*3/uL 0.83-4.51 [facility] Absolute neutrophil countOrd ered By: Avi Russo on 01-27-2025 Neutrophils (Bld) [#/Vol] 2.1 10*3/uL 2.0-7.7 [facility] Anion gap in Serum or Plasma Ordered By: ED PROVIDER on 01-27-2025 Anion gap [Moles/Vol] 11 mmol/L 5-15 [facility] Automated lymphocyte count a s percentage of total leukocytesOrdered By: Avi Russo on 01-27-2025 Lymphocytes/100 WBC Auto (Unsp spec) 48.2 % High 19-41 [facility] BUN/creatinine ratioOrdered By: ED PROVIDER on 01-27-2025 Urea nitrogen/Creatinine [Mass ratio] 17.8 mg/mg 10-20 [facility] Basophil percentageOrdered B y: Avi Russo on 01-27-2025 Basophils/100 WBC (Bld) 0.6 % 0-1 [facility] Bilirubin, totalOrdered By: ED PROVIDER on 01-27-2025 Bilirubin [Mass/Vol] 0.27 mg/dL 0.00-1.30 [facility] Blood manual differential co mment interpretation (narrative result)Ordered By: Avi Russo on 01-27-2025 Manual differential comment Reji (Bld) [Interp] SCANNED [facility] CBC W/Diff, Automatedon 01-01 SMEAR COMMENT SCANNED Normal [facility] Comment on above: Performed By: #### L 700.6800, L501.2450, L500.4050, L100.0100 #### [facility] Laboratory [address] [place], [address] PLT EST ADEQUATE Normal ADEQ [facility] Comment on above: Performed By: #### L 700.6800, L501.2450, L500.4050, L100.0100 #### [facility] [address] [place], [address] Carbon dioxide, total [Moles /volume] in Central venous bloodOrdered By: ED PROVIDER on 01-27-2025 CO2 [Moles/Vol] 24.0 mmol/L 21.0-32.0 [facility] Chloride assayOrdered By: ED PROVIDER on 01-27-2025 Chloride [Moles/Vol] 105 mmol/L 98-108 [facility] Comprehensive Metabolic Prof ilon 01-27-2025 Albumin [Mass/Vol] 4.3 g/dL Normal 3.5-5.0 [facility] Comment on above: Performed By: #### L 700.6800, L501.2450, L500.4050, L100.0100 #### [facility] [address] [place], [place], [id number] (953) Albumin/Globulin [Mass ratio] 1.5 {ratio} Normal 0.9-2.4 [facility] Comment on above: Performed By: #### L 700.6800, L501.2450, L500.4050, L100.0100 #### [facility] [address] [place], [address] ALK PHOS 61 U/L Normal 35-104 [facility] Comment on above: Performed By: #### L 700.6800, L501.2450, L500.4050, L100.0100 #### [facility] [address] [place], [address] ALT [Catalytic activity/Vol] 23 U/L Normal <=34 [facility] Comment on above: Performed By: #### L 700.6800, L501.2450, L500.4050, L100.0100 #### [facility] [address] [place], [address] AST [Catalytic activity/Vol] 21 U/L Normal <=31 [facility] Comment on above: Performed By: #### L 700.6800, L501.2450, L500.4050, L100.0100 #### [facility] [address] [place], [address] Bilirubin [Mass/Vol] 0.27 mg/dL Normal 0.00-1.30 [facility] Comment on above: Performed By: #### L 700.6800, L501.2450, L500.4050, L100.0100 #### [facility] [address] [place], [address] BUN/CRE 17.8 RATIO Normal 10-20 [facility] Comment on above: Performed By: #### L 700.6800, L501.2450, L500.4050, L100.0100 #### [facility] [address] [place], [address] Calcium [Mass/Vol] 9.3 mg/dL Normal 7.6-11.0 [facility] Comment on above: Performed By: #### L 700.6800, L501.2450, L500.4050, L100.0100 #### [facility] [address] [place], [address] Chloride [Moles/Vol] 105 mmol/L Normal 98-108 [facility] Comment on above: Performed By: #### L 700.6800, L501.2450, L500.4050, L100.0100 #### [facility] [address] [place], [address] CO2 [Moles/Vol] 24.0 mmol/L Normal 21.0-32.0 [facility] Comment on above: Performed By: #### L 700.6800, L501.2450, L500.4050, L100.0100 #### [facility] [address] [place], [address] Creatinine [Mass/Vol] 1.01 mg/dL Normal 0.70-1.20 [facility] Comment on above: Performed By: #### L 700.6800, L501.2450, L500.4050, L100.0100 #### [facility] [address] [place], [address] ECRCL 90.04 ml/min Normal 50-250 [facility] Comment on above: Performed By: #### L 700.6800, L501.2450, L500.4050, L100.0100 #### [facility] [address] [place], [address] GAP 11 Normal 5-15 [facility] Comment on above: Performed By: #### L 700.6800, L501.2450, L500.4050, L100.0100 #### [facility] [address] [place], [address] GFR/1.73 sq M.predicted among non-blacks MDRD (S/P/Bld) [Vol rate/Area] 77 mL/min/{1.73_m2} Normal >60 [facility] Comment on above: Result Comment: mL/m in/1.73m2 CKD-EPI Creatinine Equation (2020) Performed By: #### L 700.6800, L501.2450, L500.4050, L100.0100 #### [facility] [address] [place], [address] Globulin (S) [Mass/Vol] 2.8 g/dL Normal 2.2-4.2 [facility] Comment on above: Performed By: #### L 700.6800, L501.2450, L500.4050, L100.0100 #### [facility] [address] [place], [address] Glucose [Mass/Vol] 89 mg/dL Normal 70-99 [facility] Comment on above: Performed By: #### L 700.6800, L501.2450, L500.4050, L100.0100 #### [facility] [address] [place], [address] Potassium [Moles/Vol] 3.8 mmol/L Normal 3.3-5.1 [facility] Comment on above: Performed By: #### L 700.6800, L501.2450, L500.4050, L100.0100 #### [facility] [address] [place], [address] Sodium [Moles/Vol] 140 mmol/L Normal 133-145 [facility] Comment on above: Performed By: #### L 700.6800, L501.2450, L500.4050, L100.0100 #### [facility] [address] [place], [address] T PROT 7.1 g/dL Normal 5.9-8.4 [facility] Comment on above: Performed By: #### L 700.6800, L501.2450, L500.4050, L100.0100 #### [facility] [address] [place], [address] Urea nitrogen [Mass/Vol] 18 mg/dL Normal 4-19 [facility] Comment on above: Performed By: #### L 700.6800, L501.2450, L500.4050, L100.0100 #### [facility] [address] [place], [address] Emergency Department Summary on 01-27-2025 Emergency Department Summary [facility] Medical Records Department [address] [place] [address] Emergency Department Summary 01/27/25 MR#: [id number] Acct: [id number] Name: JAYA HOPSON Rep #: [id number] : 1995 29 From: Avi Russo MD PCP: Dr. Cem Boggs, DO Status:REG ER Location: ED HPI History of Present Illness Chief Complaint: Abd Pain Detail of Chief Complaint: Upper abdominal pain in the epigastric area that is crampy in nature with n Informant: patient Onset/Context/Timing Onset: Today and Days Context: Sudden Onset Timing: Continuous and Waxes and wanes Quality: Crampy Location: Epigastrium Current Severity: Mild Maximum Severity: Moderate Worsened by: Nothing Relieved by: Nothing Associated Symptoms Associated Symptoms: Nausea with minimal emesis Narrative Narrative: Patient is a 29-year-old female status post Tonio-en-Y. Bariatric surgery was performed at [facility]. She presents with crampy epigastric pain that does not radiate. This started several hours prior to presentation. Patient states she had pizza for lunch at approximately noon. She reports some nausea. The pain does not radiate through to her back. She has no known history of biliary disease. She denies liver disease. She was on a PPI for reflux/gastritis. She is no longer on a PPI. She denies black or maroon-colored stool. She denies chest pain, shortness of breath, cough or difficulty breathing. She has no history of renal ureterolithiasis. She denies dysuria, frequency, urgency or hematuria. There are no alleviat ing, precipitating or exacerbating factors. Prior similar symptoms: No Recent Illness/Hospitalization : No PFSH PFS Medical History Asthma BP (high blood pressure) Anxiety Migraines Home Medications ???Medication ???Instructions ???Recorded ???Last Taken ???Type multivitamin 1 tab PO DAILY 03/23/22 Unknown Hi story omeprazole 40 mg capsule,delayed 40 mg PO DAILY #30 caps 01/27/25 U nknown Rx release Allergy/AdvReac Type Severity Reaction Status Date / Time amoxicillin Allergy Hives Verified 01/27/25 18:21 Family History no significant family his Surgical History History of gastric bypass History of tonsillectomy and adenoidectomy Social History household members: family Smoking Status: Never smoker alcohol intake: never substance use type: does not use ROS ROS ED Constitutional Constitutional ED: Denies chills, fever(s), subjective or sweats Cardiovascular Cardiovascular: Denies chest pain or palpitations Respiratory/Chest Respiratory/Chest: Denies cough, dyspnea or dyspnea on exertion Gastrointestinal Gastrointestinal: Reports abdominal pain, nausea and vomiting; Denies constipation, diarrhea or melena Genitourinary Genitourinary ED: Denies dysuria, hematuria or urinary frequency Musculoskeletal Musculoskeletal: Denies arthralgias, back pain or myalgias Hematologic/Lymphatic Hematologic/Lymphatic: Reports systems reviewed and no addt'l complaints, except as documented EXAM Physical Exam Const Vital Signs: 01/27/25 18:21 01/27/25 20:20 Temperature 97 F L Temperature Source Temporal Pulse Rate 59 L 56 L Respiratory Rate 18 16 Blood Pressure 120/87 H 126/87 H Blood Pressure Mean 98 100 Pulse Ox 100 100 Oxygen Delivery Method Room Air Room Air Positive well nourished and well developed General Appearance ED: well developed and NAD; Negative for pallor HEENT Reports moist mucous membranes HEENT Narrative: Head is atraumatic and normocephalic. Ears normal. Nares patent. Posterior pharynx is normal. Eyes PERRL and EOMs intact bilaterally General Eye ED: Negative for pale conjunctiva or scleral icterus Neck no lymphadenopathy, supple and no JVD Resp normal respiratory effort and clear to auscultation bilaterally Cardio regular rate, regular rhythm, S1 normal heart sound, S2 normal heart sound and no murmurs GI normal to inspection, nondistended, normoactive bowel sounds, non-distended and no masses; Negative for non-tender or hepatosplenomegaly GI Narrative: She has negative clinical Urena sign. There is no guarding or peritoneal findings. Auscultation: normoactive bowel sounds Palpation: soft and tender epigastric Back/Spine no CVA tenderness Extremity normal to inspection Neuro oriented x3 and CN's II-XII intact bilaterally Sensorium / Orientation: alert Psych mental status grossly normal Skin no rashes or lesions noted, no wounds and skin turgor normal General Skin Exam: elasticity normal; Negative for jaundice or pallor MDM MDM MDM Narrative Medical decision teetee (more content not included)... Normal [facility] Eosinophil percentageOrdered By: Avi Russo on 01-27-2025 Eosinophils/100 WBC (Bld) 5.7 % High 0-5 [facility] Erythrocyte distribution wid th ratioOrdered By: Avi Russo on 01-27-2025 Erythrocyte distribution width (RBC) [Ratio] 13.0 % 11.6-14.6 [facility] Erythrocyte distribution wid th standard deviationOrdered By: Avi Russo on 01-27-2025 Erythrocyte distribution width (RBC) [Ratio] 42.8 fl 35.1-43.9 [facility] Glomerular filtration rate ( GFR) estimation/1.73 sq m using serum, plasma, or whole bOrdered By: ED PROVIDER on 01-27-2025 GFR/1.73 sq M.predicted among non-blacks MDRD (S/P/Bld) [Vol rate/Area] 77 mL/min/{1.73_m2} >60 [facility] Comment on above: mL/min/1.73m2 CKD-EP I Creatinine Equation (2020) Hematocrit Auto (Bld) [Volum e fraction]Ordered By: Avi Russo on 01-27-2025 Hematocrit (Bld) [Volume fraction] 40.2 % 37-47 [facility] Hemoglobin measurementOrdere d By: vAi Russo on 01-27-2025 Hemoglobin (Bld) [Mass/Vol] 13.4 g/dL 12.0-15.0 [facility] Immature granulocytes/100 WB C Auto (Bld)Ordered By: Avi Russo on 01-27-2025 Immature granulocytes/100 WBC (Bld) 0.400 % 0.0-0.9 [facility] Comment on above: IG% - Immature Granu locytes (promyelocytes, myelocytes and metamyelocytes) > 1% indicates that a LEFT SHIFT is Present. Laboratory - Chemistry and C hemistry - challengeOrdered By: ED PROVIDER on 01-27-2025 AST [Catalytic activity/Vol] 21 U/L <32 [facility] Lipaseon 01-27-2025 Lipase [Catalytic activity/Vol] 73 U/L Normal 13-75 [facility] Comment on above: Result Comment: Juan Ramon diamond note: LIPASE revised reference range effective 22. New Lipase methodology. Expected to produce lower values than the previous assay method. NEW Reference Range: 13 - 75 U/L Performed By: #### L 700.6800, L501.2450, L500.4050, L100.0100 #### [facility] [place], [address] Lipase measurementOrdered By : ED PROVIDER on 01-27-2025 Lipase [Catalytic activity/Vol] 73 U/L 13-75 [facility] Comment on above: Please note:LIPASE r evised reference range effective 22. New Lipase methodology. Expected to produce lower values than the previous assay method. NEW Reference Range: 13 - 75 U/L MCV (mean corpuscular volume ) determinationOrdered By: Avi Russo on 01-27-2025 MCV (RBC) [Entitic vol] 90.1 fL 81-99 [facility] Mean corpuscular hemoglobin (MCH) determinationOrdered By: Avi Russo on 01-27-2025 MCH (RBC) [Entitic mass] 30.0 pg 27.0-32.0 [facility] Mean corpuscular hemoglobin concentration (MCHC) determinationOrdered By: Avi Russo on 01-27-2025 MCHC (RBC) [Mass/Vol] 33.3 g/dL 32-36 [facility] Mean platelet volume determi nationOrdered By: Avi Russo on 01-27-2025 Platelet mean volume (Bld) [Entitic vol] 14.0 fL High 6.2-12.0 [facility] Monocyte percentageOrdered B y: Avi Russo on 01-27-2025 Monocytes/100 WBC (Bld) 4.9 % 0-10 [facility] Neutrophil percentageOrdered By: [facility] on 01-27-2025 Neutrophils/100 WBC (Bld) 40.2 % Low 47-70 [facility] Nucleated red blood cell per centageOrdered By: Aviobed Russo on 01-27-2025 Nucleated RBC/100 WBC (Bld) [Ratio] 0 % 0-5 [facility] Platelet countOrdered By: Amie Russo on 01-27-2025 Platelet count Not Reportable [facility] Comment on above: Please note: For thi s sample, a platelet estimate is provided rather than a platelet count due to platelet clumping. Other parameters associated with this sample are not affected by platelet clumping. If a more accurate platelet count is required, a redraw of the patient will be necessary. Platelet estimateOrdered By: Avi Russo on 01-27-2025 Platelets LM Ql (Bld) ADEQUATE ADEQ [facility] Potassium measurement (mass/ volume)Ordered By: ED PROVIDER on 01-27-2025 Potassium (Unsp spec) [Mass/Vol] 3.8 mmol/L 3.3-5.1 [facility] ,Serum,hCG Quali.on 01-27-2025 HCG, SERUM QUAL Negative Normal [facility] Comment on above: Performed By: #### L 700.6800, L501.2450, L500.4050, L100.0100 #### [facility] [address] [place], [address] RBC Auto (Bld) [#/Vol]Ordere d By: Avi Russo on 01-27-2025 RBC (Bld) [#/Vol] 4.46 10*6/uL 4.2-5.4 [facility] Serum beta-hCG test, qualita tiveOrdered By: ED PROVIDER on 01-27-2025 Beta HCG ( test) Ql Negative [facility] Serum creatinine measurement (mass/volume)Ordered By: ED PROVIDER on 01-27-2025 Creatinine [Mass/Vol] 1.01 mg/dL 0.70-1.20 [facility] Serum globulin measurementOr dered By: ED PROVIDER on 01-27-2025 Globulin (S) [Mass/Vol] 2.8 g/dL 2.2-4.2 [facility] Serum glucose measurement (m ass/volume)Ordered By: ED PROVIDER on 01-27-2025 Glucose [Mass/Vol] 89 mg/dL 70-99 [facility] Serum or plasma alanine holt otransferase (ALT) measurementOrdered By: ED PROVIDER on 01-27-2025 ALT [Catalytic activity/Vol] 23 U/L <35 [facility] Serum or plasma albumin venessa urement (mass/volume)Ordered By: ED PROVIDER on 01-27-2025 Albumin [Mass/Vol] 4.3 g/dL 3.5-5.0 [facility] Serum or plasma albumin/glob ulin mass ratioOrdered By: ED PROVIDER on 01-27-2025 Albumin/Globulin [Mass ratio] 1.5 {ratio} 0.9-2.4 [facility] Serum or plasma alkaline tamera sphatase measurementOrdered By: ED PROVIDER on 01-27-2025 ALP [Catalytic activity/Vol] 61 U/L 35-104 [facility] Serum or plasma calcium venessa urement (mass/volume)Ordered By: ED PROVIDER on 01-27-2025 Calcium [Mass/Vol] 9.3 mg/dL 7.6-11.0 [facility] Serum or plasma urea nitroge n measurement (mass/volume)Ordered By: ED PROVIDER on 01-27-2025 Urea nitrogen [Mass/Vol] 18 mg/dL 4-19 [facility] Sodium levelOrdered By: ED P ROVIDER on 01-27-2025 Sodium [Moles/Vol] 140 mmol/L 133-145 [facility] Total proteinOrdered By: ED PROVIDER on 01-27-2025 Protein [Mass/Vol] 7.1 g/dL 5.9-8.4 [facility] White blood cell (WBC) count Ordered By: Avi Russo on 01-27-2025 WBC (Bld) [#/Vol] 5.1 10*3/uL 4.4-11.0 [facility] CNNURSEon 01-21-2025 CNNURSE Nurse Visit (OBGYWM) JAYA HOPSON ([id number]) 1995 F Date Time Provider Department 01/21/25 4:00 PM NURSE HEALTH CLAIMS EXAMINER [facility] WSTR OBGYWM During your visit today, we recorded the following information about you: Blood pressure Weight 114/86 87.1 kg Keysha Rouse RN 01/21/2025 5:27 PM Signed Patient identified by name and date of . Jaya Hopson is here for a Depo Provera injection. Patient brought medication. Date last injected: 10/29/24 Depo-Provera, 150 mg, administered IM left deltoid, Lot # [id number], expiration date 06/01/2026. Depo-Provera was given without incident. Date of last menses: Patient's last menstrual period was 05/04/2024. Irregular bleeding - No Menses ceased - Yes Patient instructed to return to clinic in 12 weeks. [email or web address] Provider PRINCE was present in office at time of injection. Keysha Rouse RN Allergies As of Date: 01/21/2025 Noted Allergy Reaction FLUOCINOLONE 08/11/2014 10 - Anaphylaxis AMOXICILLIN 08/11/2014 4 - Hives Date Reviewed: 01/21/2025 Reviewed by: Zakc, Keysha, RN - Fully Assessed Reason for Visit: Depo Provera Injection [1655] Primary Visit Diagnosis:Encounter for management and injection of depo-Provera [Z30.42] Prescriptions as of 01/21/2025 - galcanezumab-gnlm (EMGALITY PEN) 120 mg/mL pen Inject 1 mL subcutaneously once every month. Do not shake. - ubrogepant (UBRELVY) 100 mg tablet Take 1 tablet by mouth as needed (take at onset of migraine, repeat in 2 hours). - galcanezumab-gnlm (EMGALITY PEN) 120 mg/mL pen Inject 2 pens (240 mg) under the skin 1 time only for initial loading dose. Refrigerate. Do not shake. - sertraline (ZOLOFT) 25 mg tablet Take 25 mg by mouth once daily. - hydrOXYzine pamoate (VISTARIL) 25 mg capsule Take 25 mg by mouth as needed for anxiety. - ARIPiprazole (ABILIFY) 2 mg tablet Take 1 tablet by mouth every afternoon. - traZODone (DESYREL) 50 mg tablet TAKE 1/2 (ONE-HALF) TABLET BY MOUTH ONCE DAILY AT BEDTIME NEEDED - albuterol HFA (PROVENTIL HFA, VENTOLIN HFA) 90 mcg/actuation inhaler Inhale 2 Puffs as instructed every 4 hours as needed for wheezing/shortness of breath. - medroxyPROGESTERone (DEPO-PROVERA) 150 mg/mL injection Inject 1 mL intramuscularly every 12 weeks. - mv-min/iron/folic/calci um/vitK (WOMEN'S MULTIVITAMIN ORAL) Take 2 tablets by mouth once daily. - Magnesium 250 mg tab Take 250 mg by mouth once daily. - Biotin 10,000 mcg cap Take 1 capsule by mouth once daily. - cholecalciferol (VITAMIN D-3) 50 mcg (2,000 unit) tablet Take 1,000 Units by mouth once daily. - calcium carbonate (CALCIUM 600 ORAL) Take 1 tablet by mouth three times a day. - thiamine (VITAMIN B-1) 50 mg tablet Take 50 mg by mouth once daily. - cyanocobalamin (VITAMIN B-12) 500 mcg tablet Take 1 tablet by mouth every other week. Facility-Administered Medications as of 01/21/2025 - medroxyPROGESTERone 150 mg injection (DEPO-PROVERA) Problem List As Of Date 01/21/2025 Noted Resolved Chiari malformation type I (HCC) [G93.5] 08/20/2017 Vision blurred [H53.8] 08/20/2017 Dizziness and giddiness [R42] 08/20/2017 Nonintractable headache [R51.9] 08/20/2017 Brain lesion [G93.9] 08/20/2017 Migraine with aura and without status migrainos*10/14/2017 Imbalance [R26.89] 01/29/2024 Posture abnormality [R29.3] 01/29/2024 Dizziness [R42] 01/29/2024 Mild intermittent asthma with acute exacerbatio*02/05/2024 Obesity, Class I, BMI 30-34.9 [E66.811] 02/19/2024 Anxiety and depression [F41.9, F32.A] 04/13/2024 Disposition: Return in 12 weeks (on 04/15/2025). Follow-up and Disposition History for Encounter Date Provider Department Center 01/21/2025 [id number] CLAIMS EXAM[facility] *CARISSA Waller Encounter Status:Closed by KEYSHA ROUSE on 01/21/25 [facility]20[facility] JAYA HOPSON ([id number]) 1995 F Date Time Provider Department 01/21/25 ABRAHAM GARCIA During your visit today, we recorded the following information about you: Keysha Rouse RN 01/21/2025 3:43 PM Signed Pt scheduled for nurse visit today for Depo injection. Pt gets q12 weeks. Please file to allow this RN to document as ordered. Has annual scheduled 02/22/25 with CP. Keysha Rouse RN Allergies As of Date: 01/21/2025 Noted Allergy Reaction FLUOCINOLONE 08/11/2014 10 - Anaphylaxis AMOXICILLIN 08/11/2014 4 - Hives Date Reviewed: 01/21/2025 Reviewed by: Keysha Rouse RN - Fully Assessed Order(s):medroxyPROGEST ERone 150 mg injection (DEPO-PROVERA)Disp: Rfl: Prescriptions as of 01/21/2025 - galcanezumab-gnlm (EMGALITY PEN) 120 mg/mL pen Inject 1 mL subcutaneously once every month. Do not shake. - ubrogepant (UBRELVY) 100 mg tablet Take 1 tablet by mouth as needed (take at onset of migraine, repeat in 2 hours). - galcanezumab-gnlm (EMGALITY PEN) 120 mg/mL pen Inject 2 pens (240 mg) under the skin 1 time only for initial loading dose. Refrigerate. Do not shake. - sertraline (ZOLOFT) 25 mg tablet Take 25 mg by mouth once daily. - hydrOXYzine pamoate (VISTARIL) 25 mg capsule Take 25 mg by mouth as needed for anxiety. - ARIPiprazole (ABILIFY) 2 mg tablet Take 1 tablet by mouth every afternoon. - traZODone (DESYREL) 50 mg tablet TAKE 1/2 (ONE-HALF) TABLET BY MOUTH ONCE DAILY AT BEDTIME NEEDED - albuterol HFA (PROVENTIL HFA, VENTOLIN HFA) 90 mcg/actuation inhaler Inhale 2 Puffs as instructed every 4 hours as needed for wheezing/shortness of breath. - medroxyPROGESTERone (DEPO-PROVERA) 150 mg/mL injection Inject 1 mL intramuscularly every 12 weeks. - mv-min/iron/folic/calci um/vitK (WOMEN'S MULTIVITAMIN ORAL) Take 2 tablets by mouth once daily. - Magnesium 250 mg tab Take 250 mg by mouth once daily. - Biotin 10,000 mcg cap Take 1 capsule by mouth once daily. - cholecalciferol (VITAMIN D-3) 50 mcg (2,000 unit) tablet Take 1,000 Units by mouth once daily. - calcium carbonate (CALCIUM 600 ORAL) Take 1 tablet by mouth three times a day. - thiamine (VITAMIN B-1) 50 mg tablet Take 50 mg by mouth once daily. - cyanocobalamin (VITAMIN B-12) 500 mcg tablet Take 1 tablet by mouth every other week. Facility-Administered Medications as of 01/21/2025 - medroxyPROGESTERone 150 mg injection (DEPO-PROVERA) Problem List As Of Date 01/21/2025 Noted Resolved Chiari malformation type I (HCC) [G93.5] 08/20/2017 Vision blurred [H53.8] 08/20/2017 Dizziness and giddiness [R42] 08/20/2017 Nonintractable headache [R51.9] 08/20/2017 Brain lesion [G93.9] 08/20/2017 Migraine with aura and without status migrainos*10/14/2017 Imbalance [R26.89] 01/29/2024 Posture abnormality [R29.3] 01/29/2024 Dizziness [R42] 01/29/2024 Mild intermittent asthma with acute exacerbatio*02/05/2024 Obesity, Class I, BMI 30-34.9 [E66.811] 02/19/2024 Anxiety and depression [F41.9, F32.A] 04/13/2024 Prescriptions ordered this encounter Disp Refills Start End MEDROXYPROGESTERONE 150 MG/ML INTRAM* 01/21/2025 12/23/2025 Route: INTRAMUSCULA Encounter Status:Closed by DANIEL OLIVO on 01/21/25 [facility] MR Cervical spine WO contrleo ton 12-21-2024 IMPRESSION: 1. Cerebellar tonsillar ectopia as described, not significantly changed from 09/04/2017. 2. No abnormal signal or syrinx of the visualized spinal cord. Anatomic Variant: None. Assume 7 cervical vertebrae with counting from the craniocervical junction. Forensic Anthropologist: PSCB Transcribe Date/Time: Dec 21 2024 10:05A Dictated by : ROSALVA BISWAS MD This examination was interpreted and the report reviewed and electronically signed by: ROSALVA BISWAS MD on Dec 21 2024 10:11AM [facility] DIVISION OF RADIOLOGY * * *Final Report* * * DATE OF EXAM: Dec 21 2024 8:47AM [id number] - MRI CERVICAL SPINE WO IVCON / PROCEDURE REASON: Chiari I malformation (HCC) * * * * Physician Interpretation * * * * EXAMINATION: MRI CERVICAL SPINE WO IVCON CLINICAL HISTORY: Chiari I malformation (HCC) TECHNIQUE: Routine cervical spine MR protocol without gadolinium. MQ: [id number] COMPARISON: MRI cervical spine 09/04/2017 RESULT: Counting reference: Craniocervical junction. Anatomic Variants: None. Localizer images: No significant findings. Alignment: Straightening of the cervical lordosis without significant listhesis, likely positional. Craniocervical junction: Cerebellar tonsillar ectopia measuring up to 6 mm on the right. Cord: The visualized cord is within normal limits of signal intensity and morphology. Bone marrow signal/fracture: No evidence of pathologic marrow infiltration. No evidence of prior fracture. Cervical soft tissues: The paraspinal soft tissues are within normal limits. C2-C3: Canal and foramina are patent. C3-C4: Canal and foramina are patent. C4-C5: Canal and foramina are patent. C5-C6: Canal and foramina are patent. C6-C7: Canal and foramina are patent. C7-T1: Canal and foramina are patent. DIVISION OF RADIOLOGY Provider, [facility] - 12/21/2024 * * *Final Report* * * DATE OF EXAM: Dec 21 2024 8:47AM [id number] - MRI CERVICAL SPINE WO IVCON / PROCEDURE REASON: Chiari I malformation (HCC) * * * * Physician Interpretation * * * * EXAMINATION: MRI CERVICAL SPINE WO IVCON CLINICAL HISTORY: Chiari I malformation (HCC) TECHNIQUE: Routine cervical spine MR protocol without gadolinium. MQ: [id number] COMPARISON: MRI cervical spine 09/04/2017 RESULT: Counting reference: Craniocervical junction. Anatomic Variants: None. Localizer images: No significant findings. Alignment: Straightening of the cervical lordosis without significant listhesis, likely positional. Craniocervical junction: Cerebellar tonsillar ectopia measuring up to 6 mm on the right. Cord: The visualized cord is within normal limits of signal intensity and morphology. Bone marrow signal/fracture: No evidence of pathologic marrow infiltration. No evidence of prior fracture. Cervical soft tissues: The paraspinal soft tissues are within normal limits. C2-C3: Canal and foramina are patent. C3-C4: Canal and foramina are patent. C4-C5: Canal and foramina are patent. C5-C6: Canal and foramina are patent. C6-C7: Canal and foramina are patent. C7-T1: Canal and foramina are patent. IMPRESSION IMPRESSION: 1. Cerebellar tonsillar ectopia as described, not significantly changed from 09/04/2017. 2. No abnormal signal or syrinx of the visualized spinal cord. Anatomic Variant: None. Assume 7 cervical vertebrae with counting from the craniocervical junction. Forensic Anthropologist: PSCB Transcribe Date/Time: Dec 21 2024 10:05A Dictated by : ROSALVA BISWAS MD This examination was interpreted and the report reviewed and electronically signed by: ROSALVA BISWAS MD on Dec 21 2024 10:11AM EST [facility] Radiology Study observation (narrative) [facility] MR Cervical spine WO contras tOrdered By: Ccf Provider on 12-21-2024 [facility] MRI CERVICAL SPINE WO IVCONo n 12-21-2024 MRI CERVICAL SPINE WO IVCON * * *Final Report* * * DATE OF EXAM: Dec 21 2024 8:47AM WR [id number] - MRI CERVICAL SPINE WO IVCON / PROCEDURE REASON: Chiari I malformation (HCC) * * * * Physician Interpretation * * * * EXAMINATION: MRI CERVICAL SPINE WO IVCON CLINICAL HISTORY: Chiari I malformation (HCC) TECHNIQUE: Routine cervical spine MR protocol without gadolinium. MQ: [id number]_3 COMPARISON: MRI cervical spine 09/04/2017 RESULT: Counting reference: Craniocervical junction. Anatomic Variants: None. Localizer images: No significant findings. Alignment: Straightening of the cervical lordosis without significant listhesis, likely positional. Craniocervical junction: Cerebellar tonsillar ectopia measuring up to 6 mm on the right. Cord: The visualized cord is within normal limits of signal intensity and morphology. Bone marrow signal/fracture: No evidence of pathologic marrow infiltration. No evidence of prior fracture. Cervical soft tissues: The paraspinal soft tissues are within normal limits. C2-C3: Canal and foramina are patent. C3-C4: Canal and foramina are patent. C4-C5: Canal and foramina are patent. C5-C6: Canal and foramina are patent. C6-C7: Canal and foramina are patent. C7-T1: Canal and foramina are patent. IMPRESSION: 1. Cerebellar tonsillar ectopia as described, not significantly changed from 09/04/2017. 2. No abnormal signal or syrinx of the visualized spinal cord. Anatomic Variant: None. Assume 7 cervical vertebrae with counting from the craniocervical junction. Forensic Anthropologist: CHANELLE Transcribe Date/Time: Dec 21 2024 10:05A Dictated by : ROSALVA BISWAS MD This examination was interpreted and the report reviewed and electronically signed by: ROSALVA BISWAS MD on Dec 21 2024 10:11AM EST [id number] [facility] 36on 12-18-2024 36 Pt called back on my line and LVM please call her back [facility] 36 Left message for patient to give me a call regarding surgery [place] [id number] 12-16-2024 36 Left message for patient to give a call back regarding her auth that was denied. [facility] 36on 11-04-2024 36 ----- Message from Cassius Cox sent at 11/02/2024 10:19 AM EST ----- Please start chart, code, auth, and schedule. ----- Message ----- From: Edie Powers MD Sent: 09/30/2024 1:29 PM EST To: Cassius Hammonds, please submit this patient's paperwork to insurance for preauthorization. She needs a thighplasty and a brachioplasty. However, she elected to proceed with brachioplasty first This is an extended brachioplasty so the code for brachioplasty/arm plus the quote for excision of subcutaneous tissue of any area which is the trunk. Also bilateral thighplasty. Please submit both at the same time. If any is denied, please give her a quote. It was possible to do hold together however I would prefer to do 1 at a time. Thank you. Edie Powers MD [facility] CNNURSEon 10-29-2024 CNNURSE Nurse Visit (OBGYWM) JAYA HOPSON ([id number]) 1995 F Date Time Provider Department 10/29/24 4:00 PM NURSE HEALTH CLAIMS EXAMINER [facility] WSTR OBGYWM During your visit today, we recorded the following information about you: Blood pressure Weight 114/82 83 kg Keysha Rouse RN 10/29/2024 3:53 PM Signed Patient identified by name and date of . Jaya Hopson is here for a Depo Provera injection. Patient brought medication. Date last injected: 08/06/2024. Depo-Provera, 150 mg, administered IM right deltoid, Lot # [id number], expiration date 01/30/2026. Depo-Provera was given without incident. Date of last menses: Patient's last menstrual period was 05/04/2024. Irregular bleeding - Yes Menses ceased - Yes Patient instructed to return to clinic in 12 weeks. [email or web address] Provider PRINCE was present in office at time of injection. Keyhsa Rouse RN Allergies As of Date: 10/29/2024 Noted Allergy Reaction FLUOCINOLONE 08/11/2014 10 - Anaphylaxis AMOXICILLIN 08/11/2014 4 - Hives Date Reviewed: 10/29/2024 Reviewed by: Keysha Rouse RN - Fully Assessed Reason for Visit: Depo Provera Injection [1655] Primary Visit Diagnosis:Encounter for management and injection of depo-Provera [Z30.42] Prescriptions as of 10/29/2024 - galcanezumab-gnlm (EMGALITY PEN) 120 mg/mL pen Inject 1 mL subcutaneously once every month. Do not shake. - ubrogepant (UBRELVY) 100 mg tablet Take 1 tablet by mouth as needed (take at onset of migraine, repeat in 2 hours). - galcanezumab-gnlm (EMGALITY PEN) 120 mg/mL pen Inject 2 pens (240 mg) under the skin 1 time only for initial loading dose. Refrigerate. Do not shake. - sertraline (ZOLOFT) 25 mg tablet Take 25 mg by mouth once daily. - hydrOXYzine pamoate (VISTARIL) 25 mg capsule Take 25 mg by mouth as needed for anxiety. - ARIPiprazole (ABILIFY) 2 mg tablet Take 1 tablet by mouth every afternoon. - traZODone (DESYREL) 50 mg tablet TAKE 1/2 (ONE-HALF) TABLET BY MOUTH ONCE DAILY AT BEDTIME NEEDED - albuterol HFA (PROVENTIL HFA, VENTOLIN HFA) 90 mcg/actuation inhaler Inhale 2 Puffs as instructed every 4 hours as needed for wheezing/shortness of breath. - medroxyPROGESTERone (DEPO-PROVERA) 150 mg/mL injection Inject 1 mL intramuscularly every 12 weeks. - mv-min/iron/folic/calci um/vitK (WOMEN'S MULTIVITAMIN ORAL) Take 2 tablets by mouth once daily. - Magnesium 250 mg tab Take 250 mg by mouth once daily. - Biotin 10,000 mcg cap Take 1 capsule by mouth once daily. - cholecalciferol (VITAMIN D-3) 50 mcg (2,000 unit) tablet Take 1,000 Units by mouth once daily. - calcium carbonate (CALCIUM 600 ORAL) Take 1 tablet by mouth three times a day. - thiamine (VITAMIN B-1) 50 mg tablet Take 50 mg by mouth once daily. - cyanocobalamin (VITAMIN B-12) 500 mcg tablet Take 1 tablet by mouth every other week. Problem List As Of Date 10/29/2024 Noted Resolved Chiari malformation type I (HCC) [G93.5] 08/20/2017 Vision blurred [H53.8] 08/20/2017 Dizziness and giddiness [R42] 08/20/2017 Nonintractable headache [R51.9] 08/20/2017 Brain lesion [G93.9] 08/20/2017 Migraine with aura and without status migrainos*10/14/2017 Imbalance [R26.89] 01/29/2024 Posture abnormality [R29.3] 01/29/2024 Dizziness [R42] 01/29/2024 Mild intermittent asthma with acute exacerbatio*02/05/2024 Obesity, Class I, BMI 30-34.9 [E66.811] 02/19/2024 Anxiety and depression [F41.9, F32.A] 04/13/2024 Disposition: Return in 12 weeks (on 01/21/2025). Follow-up and Disposition History for Encounter Date Provider Department Center 10/29/2024 [id number] CLAIMS EXAMIN[facility] *OBRAH Trish Waller Encounter Status:Closed by KEYSHA ROUSE on 10/29/24 Normal [facility] (Vitamin B12) [Mass/Vol] 1117 pg/mL Normal [id number] [facility] Comment on above: Order Comment: Speci men Type: BLOOD SPECIMENOrdering Facility: [facility] Address: [address] [place] [address] Performed By: #### 2 132-9 ####[facility] LABCLIA [id number] [address] OF [facility] CNPLily 10-08-2024 CNPN Telephone (AGFAMPLE) JAYA HOPSON ([id number]) 1995 F Date Time Provider Department 10/08/24 CEM BOGGS During your visit today, we recorded the following information about you: Kristen Ireland MA 10/08/2024 7:27 AM Signed ----- Message from Oumou Mendenhall MA sent at 07/08/2024 7:18 AM EST ----- Patient due for 3 month recheck B12. LAXMI Reddy Kimberly C, DO 10/08/2024 10:59 AM Signed Order attached DO Flakita Arellano Kimberly C, 10/08/2024 10:59 AM Signed Addended by: CEM BOGGS on: 10/08/2024 10:59 AM Modules accepted: Orders Kristen Ireland MA 10/08/2024 11:53 AM Signed Left message informing patient, phone number to reach the office was left for any questions or concerns. Kristen Ireland MA Allergies As of Date: 10/08/2024 Noted Allergy Reaction FLUOCINOLONE 08/11/2014 10 - Anaphylaxis AMOXICILLIN 08/11/2014 4 - Hives Date Reviewed: 09/11/2024 Reviewed by: Krys Mcmillan OCCA - Fully Assessed Reason for Visit: Lab Orders [1688] Primary Visit Diagnosis:High serum vitamin B12 [R79.89] Order(s):VITAMIN B12 [SQB12] Order #: [id number] FUTURE Prescriptions as of 10/08/2024 - galcanezumab-gnlm (EMGALITY PEN) 120 mg/mL pen Inject 1 mL subcutaneously once every month. Do not shake. - ubrogepant (UBRELVY) 100 mg tablet Take 1 tablet by mouth as needed (take at onset of migraine, repeat in 2 hours). - galcanezumab-gnlm (EMGALITY PEN) 120 mg/mL pen Inject 2 pens (240 mg) under the skin 1 time only for initial loading dose. Refrigerate. Do not shake. - sertraline (ZOLOFT) 25 mg tablet Take 25 mg by mouth once daily. - hydrOXYzine pamoate (VISTARIL) 25 mg capsule Take 25 mg by mouth as needed for anxiety. - ARIPiprazole (ABILIFY) 2 mg tablet Take 1 tablet by mouth every afternoon. - traZODone (DESYREL) 50 mg tablet TAKE 1/2 (ONE-HALF) TABLET BY MOUTH ONCE DAILY AT BEDTIME NEEDED - albuterol HFA (PROVENTIL HFA, VENTOLIN HFA) 90 mcg/actuation inhaler Inhale 2 Puffs as instructed every 4 hours as needed for wheezing/shortness of breath. - medroxyPROGESTERone (DEPO-PROVERA) 150 mg/mL injection Inject 1 mL intramuscularly every 12 weeks. - mv-min/iron/folic/calci um/vitK (WOMEN'S MULTIVITAMIN ORAL) Take 2 tablets by mouth once daily. - Magnesium 250 mg tab Take 250 mg by mouth once daily. - Biotin 10,000 mcg cap Take 1 capsule by mouth once daily. - cholecalciferol (VITAMIN D-3) 50 mcg (2,000 unit) tablet Take 1,000 Units by mouth once daily. - calcium carbonate (CALCIUM 600 ORAL) Take 1 tablet by mouth three times a day. - thiamine (VITAMIN B-1) 50 mg tablet Take 50 mg by mouth once daily. - cyanocobalamin (VITAMIN B-12) 500 mcg tablet Take 1 tablet by mouth every other week. Facility-Administered Medications as of 10/08/2024 - medroxyPROGESTERone 150 mg injection (DEPO-PROVERA) Problem List As Of Date 10/08/2024 Noted Resolved Chiari malformation type I (HCC) [G93.5] 08/20/2017 Vision blurred [H53.8] 08/20/2017 Dizziness and giddiness [R42] 08/20/2017 Nonintractable headache [R51.9] 08/20/2017 Brain lesion [G93.9] 08/20/2017 Migraine with aura and without status migrainos*10/14/2017 Imbalance [R26.89] 01/29/2024 Posture abnormality [R29.3] 01/29/2024 Dizziness [R42] 01/29/2024 Mild intermittent asthma with acute exacerbatio*02/05/2024 Obesity, Class I, BMI 30-34.9 [E66.811] 02/19/2024 Anxiety and depression [F41.9, F32.A] 04/13/2024 Encounter Status:Closed by KRISTEN IRELAND on 10/08/24 [facility] Office Visiton 09-30-2024 Follow-up visit [id number] Jaya Hopson 1995 F Date Provider Department Center 09/30/2024 [id number] [facility] None Family History Problem Relation Age of Onset Other Mother Comments: heart problems Hypertension Mother Diabetes Mother Stroke Father Cancer Father Obesity Father Diabetes Father Colon cancer Paternal Grandfather Cancer Paternal Grandfather Cancer Maternal Grandmother Cancer Other Family Status - Relation Status Age at Mother Father Paternal Grandfather Maternal Grandmother Other Level of Service:03413 [place] OFFICE/OUTPATIENT NEW LOW MDM 30 MINUTES Reason for Visit and Comments: New Patient [542] - WLS 10/2022 highest weight before surgery was 303 lb. Pt been sticking to diet and exercising when she can to maintain weight. [facility] Progress Noteon 09-30-2024 Progress Note WLS October 2022- Highest weight: 303 lbs Lowest weight: 174 lbs C/o excess skin arms and thighs Pt c/o excess skin arms more problematic Pt reports cardiac issues of syncope, has worn a holter monitor, ? Dumping syndrome, yesterday last episode, Said requested patient go see about these concerns instead of PCP because it could be something related to her bypass. Hx of asthma last asthma attack reported 5 years ago Pt can walk a mile with no SOB Pt endorses regular exercise but has been cautious lately due to her syncope episodes Pt c/o skin rashes in thighs Pt reports vitamin compliance Pt denies personal history of blood clots or blood thinners, but reports family history of blood clots in her father. Photos obtained. Plan: to submit to insurance for surgery, also provide patient with cosmetic quote. Normal [facility] Progress Note Department of Plasti c Surgery - Adult Attending Consult Note Reason for Consult: Excessively redundant skin and subcutaneous tissue along the medial aspect of the arms and thighs bilaterally Requesting Physician: Dr. Salazar CHIEF COMPLAINT: Kindly see above History Obtained From: patient HISTORY OF PRESENT ILLNESS: The patient is a 29 y.o. female who presents with significant past medical history of morbid obesity. Status post Tonio-en-Y gastric bypass in October 2022. Patient's weight prior to her surgery was 303 pounds. Her current weight today is 179. Patient is presenting today complaining of excessively redundant skin and subcutaneous tissue along the medial aspect of the arms and thighs bilaterally. Patient endorses rash along the medial aspect of the thigh which is currently present. She also endorses trouble with clothing due to her excessively redundant skin and subcutaneous tissue along the medial aspect of the arm. 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 However, she also experiences similar attacks without eating. She did undergo evaluation by her primary care physician and had a Holter monitor at 1 point. Patient denies any cardiac or neurological source at this point of time. She reports that she is compliant with her multivitamin treatment after her weight loss surgery. She can walk a mile without shortness of breath or chest pain. Past Medical History: Past Medical History: Diagnosis Date Asthma Blurred vision COVID-19 vaccine series completed 08/28/2021 Dizziness Heartburn mild Intestinal malabsorption 12/21/2022 Joint pain, knee Past Surgical History: Past Surgical History: Procedure Laterality Date BARIATRIC SURGERY November 21, 2022 ESOPHAGOGASTRODUODENOSC OPY 04/06/2022 Dr. Salazar-[facility] FINGER SURGERY 2005 Repair broken thumb LAP GASTRIC BYPASS/TONIO-EN-Y (HISTORICAL) 11/21/2022 [facility] - Dr Salazar TONSILLECTOMY (HISTORICAL) 1999 WISDOM TOOTH EXTRACTION 2011 Current Medications: Current Outpatient Medications Medication Instructions albuterol 108 (90 Base) MCG/ACT inhaler 2 puffs, Every 4 hours PRN ARIPiprazole (ABILIFY) 5 mg, Daily B-12 500 mcg, SubLINGual, Daily, Place 500 mcg under the tongue to dissolve once daily biotin 5,000 mcg, Daily CALCIUM CITRATE PO 500 mg, 3 times daily cholecalciferol (VITAMIN D-3) 100 mcg, Oral, Daily hydrOXYzine pamoate (VISTARIL) 25 mg, 2 times daily Magnesium 500 MG capsule Nightly medroxyPROGESTERone (DEPO-PROVERA) 150 mg Multiple Vitamins-Minerals (CENTRUM WOMEN PO) 2 tablets, Daily Semaglutide-Weight Management (WEGOVY) 0.25 mg, SubCUTAneous, Every 7 days sertraline (Zoloft) 25 MG tablet Daily thiamine (VITAMIN B-1) 50 mg, Oral, Daily traZODone (Desyrel) 50 MG tablet Nightly Ubrogepant (Ubrelvy) 100 MG tablet PRN Allergies: Fluocinolone and Amoxicillin Social History: Social History Socioeconomic History Marital status: Single Spouse name: Not on file Number of children: Not on file Years of education: Not on file Highest education level: Not on file Occupational History Not on file Tobacco Use Smoking status: Never Smokeless tobacco: Never Substance and Sexual Activity Alcohol use: Not Currently Alcohol/week: 1.0 standard drink of alcohol Comment: Only socially which is rare Drug use: Never Sexual activity: Never Other Topics Concern Not on file Social History Narrative Not on file Social Drivers of Health Financial Resource Strain: Low Risk (01/17/2023) Received from [facility] Overall Financial Resource Strain (CARDIA) Difficulty of Paying Living Expenses: Not hard at all Food Insecurity: No Food Insecurity (01/17/2023) Received from [facility] Hunger Vital Sign Worried About Running Out of Food in the Last Year: Never true Ran Out of Food in the Last Year: Never true Transportation Needs: No Transportation Needs (01/17/2023) Received from [facility] PRAPARE - Transportation Lack of Transportation (Medical): No Lack of Transportation (Non-Medical): No Physical Activity: Not on file Stress: Not on file Social Connections: Not on file Intimate Partner Violence: Not At Risk (11/21/2022) Humiliation, Afraid, Rape, and Kick questionnaire Fear of Current or Ex-Partner: No Emotionally Abused: No Physically Abused: No Sexually Abused: No Housing Stability: Not on file Family History: Family History Problem Relation Name Age of Onset Other ([id number]) Mother Diana Hopson heart problems Hypertension Mother Diana Hopson Diabetes Mother Diana Hopson Stroke Father Diaz Hopson Cancer Father Diaz Hopson Obesity Father Diaz Hopson Diabetes Father Diaz Hopson Colon cancer Paternal Grandfather Cancer Paternal Grandfather Cancer Maternal Grandmother Cancer Other Carrie Loyola (more content not included)... [facility] 09-21-2024 [facility] Telephone ([facility]) JAYA HOPSON ([id number]) 1995 F Date Time Provider Department 09/21/24 MICHELLE ADAMS [facility] During your visit today, we recorded the following information about you: Michelle Adams 09/21/2024 7:56 AM Signed Ambulatory Pharmacy Prior Authorization Note Provider Intervention Required?: No- Pharmacy completed on your behalf. Rx Plan: [facility] Drug: EMGALITY Cover My Meds Stern: Done via Epic Determination: Approved Prior Authorization/Case #: [id number] Prior Authorization Expiration: 09/18/2025 Time to PA Submission in CMM: N/A Time to PA Determination in CMM: N/A Additional Information: PLEASE NOTE: Pt will need follow up office visit to review/document efficacy and tolerability of treatment before prior auth expiration. Please ensure a future follow up appt is scheduled with your patient. This will ensure no interruption in patient's ability to obtain medication refills. Prescriptions will now be processed through [facility] for determination of next steps. For questions relating to this submission, please contact [facility] at [phone] Allergies As of Date: 09/21/2024 Noted Allergy Reaction FLUOCINOLONE 08/11/2014 10 - Anaphylaxis AMOXICILLIN 08/11/2014 4 - Hives Date Reviewed: 09/11/2024 Reviewed by: Krys Mcmillan OCCA - Fully Assessed Reason for Visit: Insurance Authorization [[id number]] Cmt: EMGALITY EMGALITY [Other] Prescriptions as of 09/21/2024 - galcanezumab-gnlm (EMGALITY PEN) 120 mg/mL pen Inject 1 mL subcutaneously once every month. Do not shake. - ubrogepant (UBRELVY) 100 mg tablet Take 1 tablet by mouth as needed (take at onset of migraine, repeat in 2 hours). - galcanezumab-gnlm (EMGALITY PEN) 120 mg/mL pen Inject 2 pens (240 mg) under the skin 1 time only for initial loading dose. Refrigerate. Do not shake. - sertraline (ZOLOFT) 25 mg tablet Take 25 mg by mouth once daily. - hydrOXYzine pamoate (VISTARIL) 25 mg capsule Take 25 mg by mouth as needed for anxiety. - ARIPiprazole (ABILIFY) 2 mg tablet Take 1 tablet by mouth every afternoon. - traZODone (DESYREL) 50 mg tablet TAKE 1/2 (ONE-HALF) TABLET BY MOUTH ONCE DAILY AT BEDTIME NEEDED - albuterol HFA (PROVENTIL HFA, VENTOLIN HFA) 90 mcg/actuation inhaler Inhale 2 Puffs as instructed every 4 hours as needed for wheezing/shortness of breath. - medroxyPROGESTERone (DEPO-PROVERA) 150 mg/mL injection Inject 1 mL intramuscularly every 12 weeks. - mv-min/iron/folic/calci um/vitK (WOMEN'S MULTIVITAMIN ORAL) Take 2 tablets by mouth once daily. - Magnesium 250 mg tab Take 250 mg by mouth once daily. - Biotin 10,000 mcg cap Take 1 capsule by mouth once daily. - cholecalciferol (VITAMIN D-3) 50 mcg (2,000 unit) tablet Take 1,000 Units by mouth once daily. - calcium carbonate (CALCIUM 600 ORAL) Take 1 tablet by mouth three times a day. - thiamine (VITAMIN B-1) 50 mg tablet Take 50 mg by mouth once daily. - cyanocobalamin (VITAMIN B-12) 500 mcg tablet Take 1 tablet by mouth every other week. Facility-Administered Medications as of 09/21/2024 - medroxyPROGESTERone 150 mg injection (DEPO-PROVERA) Problem List As Of Date 09/21/2024 Noted Resolved Chiari malformation type I (HCC) [G93.5] 08/20/2017 Vision blurred [H53.8] 08/20/2017 Dizziness and giddiness [R42] 08/20/2017 Nonintractable headache [R51.9] 08/20/2017 Brain lesion [G93.9] 08/20/2017 Migraine with aura and without status migrainos*10/14/2017 Imbalance [R26.89] 01/29/2024 Posture abnormality [R29.3] 01/29/2024 Dizziness [R42] 01/29/2024 Mild intermittent asthma with acute exacerbatio*02/05/2024 Obesity, Class I, BMI 30-34.9 [E66.811] 02/19/2024 Anxiety and depression [F41.9, F32.A] 04/13/2024 Encounter Status:Closed by MICHELLE ADAMS on 09/21/24 [facility] CNOVon 09-11-2024 CNOV Office Visit (NCMNS2 ) JAYA HOPSON ([id number]) 1995 F Date Time Provider Department 09/11/24 1:45 PM ASPEN MARTINEZ NHMNS2 During your visit today, we recorded the following information about you: Pulse Blood pressure Weight 67/minute 121/77 80.9 kg Aspen Martinez APRN.HIDE CURER 09/11/2024 3:09 PM Signed Outpatient Headache Clinic - Follow Up Visit Accompanied by: Self Primary Problem List: 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, Not Intractable Imbalance Posture Abnormality Dizziness Mild Intermittent Asthma With Acute Exacerbation Obesity, Class I, Bmi 30-34.9 Anxiety and Depression Chief Complaint: Follow up LV: 01/21/2024 w/ me Impression and Plan from last visit: MPRESSION: Migraine with aura and without status migrainosus, not intractable (primary encounter diagnosis) Imbalance Cervicalgia Jaya Hopson is a 28 year old year old female, with a history of thrombocytopenia, chiari malformation, asthma, gastric bypass, and migraine w/wo aura who presents for follow up. Her neurological examination is essentially normal at this visit. She did not tolerate Topamax, even at low doses. Ubrelvy is effective for rescue. Was on Emgality in the past and was virtually migraine free. Was stopped because menses stopped and unsure if it was related to Emgality use- reports hx of other health problems around that time including morbid obesity. She would like to retrial Emgality for prevention. C/o imbalance, swaying when standing still and neck tightness/pain. Vestibular PT helped with this in the past. PLAN: 1. Emgality for prevention- if menses stops again will d/c 2. Ubrelvy for rescue 3. Vestibular PT Future Considerations: Ajovy, Aimovig, Botox, Qulipta Interval Headache History: Since the last visit, the patient states that her headaches are slightly worse. Last had Emgality six months ago. She keeps forgetting to order it. Ubrelvy is effective for rescue. Feels migraines are more severe, rates 5-6/10 instead of 2-3/10. Occurring 15 days/month. Says her main reason for coming today is her fainting spells. She saw neurology for this and is supposed to complete a tilt table test. She is having more frequent near syncope and feels her heart is racing. Echo and holter monitor were unremarkable. Has another holter monitor on now. 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 Preventative: Emgality- has not taken since April Abortive: Ubrelvy Medications effective? yes # of doses of abortive medications per month: 10 Headache 1 This is the current headache. Location: occipital (can radiate forward to retro-orbital R > L -- assocaited with neck pain ) Quality/Description: throbbing, aching and sharp Other symptoms: photophobia, phonophobia, dizziness and neck pain (can have sensory overload all the time. denies autonomic symptoms with headaches ) Worse with activity: yes Number of migraine headache days/month: 15 Migraine Severity: mild Number of NON-migraine headache days/month: 0 Total Number of headache days/month: 15 Number of headache free days/month: 15 Duration of headaches with treatment: Duration of attacks with treatment: lasts minutes to 1 hour then will stop --> does not pay much attention to these headaches Triggers: none Most common time of day for headache to begin: anytime Aura: flashing lights Days missed from work or school in the last month: 3 days Prior Therapies Duration of Use Dose Reason for Discontinuation Anti-Depressant and Antipsychotic Aripiprazole (Abilify) Duloxetine (Cymbalta) Nortriptyline (Pamelor, Aventyl) Sertraline (Zoloft) Antiemetics Prochlorperazine Anti-Migraine Dihydroergotamine (DHE-45, Migranal) Sumatriptan (Imitrex, Sumavel) Blood Pressure Nadolol (Corgard) MABs Galcanezumab (Emgality) menses discontinued? she doesn't remember, was very effective for her GEPANTS Ubrogepant (Ubrelvy) Sleep Aids Trazodone (Desyrel) Over the Counter Medications Acetaminophen/Aspirin/C affeine (Excedrin, Goody?s) Ibuprofen (Advil, Motrin) PAST MEDICAL HISTORY Diagnosis Date Asthma Brain lesion Chiari malformation type I (HCC) Migraines Thrombocytopenia (HCC) PAST SURGICAL HISTORY Procedure Laterality Date DENTAL SURGERY HX 2012 wisdom teeth removed GASTRIC BYPASS HX 11/21/2022 HAND SURGERY HX Left 2003 broken thumb repair TONSILLECTOMY AND ADENOIDECTOMY HX age 5 ALLERGIES Allergen Reactions Fluocinolone Anaphylaxis Amoxicillin Hives Current Medications: sertraline (ZOLOFT) 25 mg tabletTake 25 mg by mouth once daily.Disp: Rfl: hydrOXYzine pamoate (VISTARIL) 25 mg capsuleTake 25 mg by mouth as needed for anxiety.Disp: (more content not included)... Normal [facility] No Panel Informationon 08-31 Sinus Rhythm -Negative precordial T-waves. WITHIN NORMAL LIMITS [facility] Office Visiton 08-31-2024 Follow-up visit [id number] Mark AnthonyJaya 1995 F Date Provider Department Center 08/31/2024 [facility] None Family History Problem Relation Age of Onset Other Mother Comments: heart problems Hypertension Mother Stroke Father Cancer Father Obesity Father Diabetes Father Colon cancer Paternal Grandfather Cancer Maternal Grandmother Cancer Paternal Grandfather Family Status - Relation Status Age at Mother Father Paternal Grandfather Maternal Grandmother Level of Service:34205 [place] OFFICE/OUTPATIENT NEW MODERATE MDM 45 MINUTES Reason for Visit and Comments: New Patient [542] Normal [facility] Progress Noteon 08-31-2024 Progress Note See above. This is likely due to orthostatic hypotension. There may be one or two of these episodes associated with vagal reflex - she did have an episode while having a bowel movement sitting on commode. -As above supportive care and conservative measures first -1 week extended holter as above -If has recurrent episodes of syncope without a clear understanding of situation or trigger, and these are infrequent, she could be referred to EP for an ILR. There is no indication for this right now. Normal [facility] Progress Note Clearly describes episodes where changes in position cause dizziness and she knows to sit or get on the ground. One of these episodes, she was found to have SBP 90's. Discussed how to address with lifestyle interventions. Orthostatic in office negative, though notable that resting SBP 110's, dropped to 108 mmHg. Low normal values predispose patients to be more sensitive to orthostatic situations. -Lifestyle management; push fluids, consider compression hose, consider add salt to diet. Lifestyle awareness -If does not respond to lifestyle management and is worse with frequent episodes of syncope that cannot be aborted then would consider pharmacologic Rx (e.g Florinef and/or Midodrine). Normal [facility] Progress Note Notes palpitations/tachycardi a at times with changes in position. Sometimes notes this prior syncopal episodes. Prior teletypesetter monitor 10/2023 was normal but did not occur with syncope or palpitations she is now experiencing. -1 week extended holter ordered; if benign, no further w/u, if shows arrhythmia then she will need f/u to discuss Normal [facility] Progress Note Very successful weig ht loss. Patient happy with outcome. She is continuign with lifestyle changes, joined [employer] 07/2023, started Wegovy as well. BMI now <30. No exertional syncopal episodes. Gastric bypass is known to be associated with changes in the autonomic nervous system. In one study 8.4% of patients had abnormalities of autonomic dysfunction, orthostatic intolerance and POTS. Supportive care is recommended. While data is not yet available, expect that once patient's body reaches new steady state with all her changes, the autonomic nervous system will compensate appropriately. For any residual concerning findings and symptoms, those can be addressed. -Continue with lifestyle changes -Ok for continued Wegovy -F/u bariatric team Normal [facility] Progress Note [facility] [address] [address] Dept: [phone] Dept Visit type: New : 1995 Reason for Visit: New Patient Assessment and Plan 1. Tachycardia Assessment & Plan: Notes palpitations/tachycardi a at times with changes in position. Sometimes notes this prior syncopal episodes. Prior teletypesetter monitor 10/2023 was normal but did not occur with syncope or palpitations she is now experiencing. -1 week extended holter ordered; if benign, no further w/u, if shows arrhythmia then she will need f/u to discuss Orders: - ECG 12 lead - Cardiac holter monitor (3-7 days) 2. Orthostatic hypotension Assessment & Plan: Clearly describes episodes where changes in position cause dizziness and she knows to sit or get on the ground. One of these episodes, she was found to have SBP 90's. Discussed how to address with lifestyle interventions. Orthostatic in office negative, though notable that resting SBP 110's, dropped to 108 mmHg. Low normal values predispose patients to be more sensitive to orthostatic situations. -Lifestyle management -If does not respond to lifestyle management and is worse with frequent episodes of syncope that cannot be aborted then would consider pharmacologic Rx (e.g Florinef and/or Midodrine). 3. History of Tonio-en-Y gastric bypass Assessment & Plan: Very successful weight loss. Patient happy with outcome. She is continuign with lifestyle changes, joined [employer] 07/2023, started Wegovy as well. BMI now <30. No exertional syncopal episodes. Gastric bypass is known to be associated with changes in the autonomic nervous system. In one study 8% of patients had such changes with BP and/or HR changes. Supportive care is recommended. While data is not yet available, expect that once patient's body reaches new steady state with all her changes, the autonomic nervous system will compensate appropriately. -Continue with lifestyle changes -Ok for continued Wegovy -F/u bariatric team 4. Syncope and collapse Assessment & Plan: See above. This is likely due to orthostatic hypotension. There may be one or two of these episodes associated with vagal reflex - she did have an episode while having a bowel movement sitting on commode. -As above supportive care and conservative measures first -1 week extended holter as above -If has recurrent episodes of syncope without a clear understanding of situation or trigger, and these are infrequent, she could be referred to EP for an ILR. There is no indication for this right now. Follow up if symptoms worsen or fail to improve. Subjective Referred by PCP for tachycardia. For the past few years has been passing out. Now notes that she has been getting tachycardia. Started 2020 or 2021 (prior to metabolic surgery) In [facility]. Went in for back pain. Only got oral NSAID. Was sitting on hospital bed, then getting up noted a staticey vision ringing in the ears sweaty tunnel vision. Then woke up on the floor. Seen by her mother, nurses came in got her up and then she went home. No intervention done at that time. Clear tired for next few days. Also for next a few days, had similar episodes where she would nearly lose or lose consciousness, make it to bathroom, when having a bowel movement would pass out. That pattern went away for a year. Then came back after 1 mos of gastric bypass 10/2022. Most recent episode she was at work a few mos ago. 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 This episode and others, she is only out for a short period of time, wakes up and is aware of her surroundings. Usually does not seek medical attention. For the work episode, nurse on site ck'd BP at 98/60 mmHg. Usually SBP 110's, before surgery it was around 120 mmHg. The episode before the lab event at work was March. So her episodes of actually passing out are by a few months, though there are times she can feel a prodrome. Notes tachycardia with sitting to standing. New in last few months. Started [employer] 07/2023. Noted HR 145-170 with activity and can get dizzy and get palpitations. At rest, HR can be elevated after standing, 110-120 bpm, can feel that at rest. At least once a day. Had echo 09/2023- normal. Had 3 d Holter 10/2023 but had no Sxs during that time and tracings were benign. No tob or significant ETOH. Labs 06/2023 done [facility] CMP, CBC, A1C; no major abnormalities. Jaya Hopson Review of Systems Constitutional: Positive for fatigue. Negative for activity change, chills, diaphoresis and fever. HENT: Negative for nosebleeds and trouble swallowing. Eyes: Negative for discharge and visual disturbance. Respiratory: Negative for apnea, cough, chest tightness, shortness of breath and wheezing. Cardiovascular: Positive f (more content not included)... Normal [facility] CNPNon 08-17-2024 CNPN Telephone ([facility]) JAYA HOPSON ([id number]) 1995 F Date Time Provider Department 08/17/24 YOMI SOSA [facility] During your visit today, we recorded the following information about you: Yomi Sosa RN 08/17/2024 2:44 PM Signed Medication Emgality PA renewal is required; however, there is no follow up office visit to review/document efficacy and tolerability on treatment to justify continuation of therapy. Please send new eRx after office visit to [facility] if plan to continue therapy thereafter. PA renewal will be held until then. Thank you! Yomi Sosa RN [facility] P: , F: Allergies As of Date: 08/17/2024 Noted Allergy Reaction FLUOCINOLONE 08/11/2014 10 - Anaphylaxis AMOXICILLIN 08/11/2014 4 - Hives Date Reviewed: 08/06/2024 Reviewed by: Keysha Rouse RN - Fully Assessed Reason for Visit: Insurance Authorization [[id number]] emgality [Other] Prescriptions as of 09/16/2024 - galcanezumab-gnlm (EMGALITY PEN) 120 mg/mL pen Inject 1 mL subcutaneously once every month. Do not shake. - ubrogepant (UBRELVY) 100 mg tablet Take 1 tablet by mouth as needed (take at onset of migraine, repeat in 2 hours). - galcanezumab-gnlm (EMGALITY PEN) 120 mg/mL pen Inject 2 pens (240 mg) under the skin 1 time only for initial loading dose. Refrigerate. Do not shake. - sertraline (ZOLOFT) 25 mg tablet Take 25 mg by mouth once daily. - hydrOXYzine pamoate (VISTARIL) 25 mg capsule Take 25 mg by mouth as needed for anxiety. - ARIPiprazole (ABILIFY) 2 mg tablet Take 1 tablet by mouth every afternoon. - traZODone (DESYREL) 50 mg tablet TAKE 1/2 (ONE-HALF) TABLET BY MOUTH ONCE DAILY AT BEDTIME NEEDED - albuterol HFA (PROVENTIL HFA, VENTOLIN HFA) 90 mcg/actuation inhaler Inhale 2 Puffs as instructed every 4 hours as needed for wheezing/shortness of breath. - medroxyPROGESTERone (DEPO-PROVERA) 150 mg/mL injection Inject 1 mL intramuscularly every 12 weeks. - mv-min/iron/folic/calci um/vitK (WOMEN'S MULTIVITAMIN ORAL) Take 2 tablets by mouth once daily. - Magnesium 250 mg tab Take 250 mg by mouth once daily. - Biotin 10,000 mcg cap Take 1 capsule by mouth once daily. - cholecalciferol (VITAMIN D-3) 50 mcg (2,000 unit) tablet Take 1,000 Units by mouth once daily. - calcium carbonate (CALCIUM 600 ORAL) Take 1 tablet by mouth three times a day. - thiamine (VITAMIN B-1) 50 mg tablet Take 50 mg by mouth once daily. - cyanocobalamin (VITAMIN B-12) 500 mcg tablet Take 1 tablet by mouth every other week. Facility-Administered Medications as of 09/16/2024 - medroxyPROGESTERone 150 mg injection (DEPO-PROVERA) Problem List As Of Date 08/17/2024 Noted Resolved Chiari malformation type I (HCC) [G93.5] 08/20/2017 Vision blurred [H53.8] 08/20/2017 Dizziness and giddiness [R42] 08/20/2017 Nonintractable headache [R51.9] 08/20/2017 Brain lesion [G93.9] 08/20/2017 Migraine with aura and without status migrainos*10/14/2017 Imbalance [R26.89] 01/29/2024 Posture abnormality [R29.3] 01/29/2024 Dizziness [R42] 01/29/2024 Mild intermittent asthma with acute exacerbatio*02/05/2024 Obesity, Class I, BMI 30-34.9 [E66.811] 02/19/2024 Anxiety and depression [F41.9, F32.A] 04/13/2024 Encounter Status:Closed by YOMI SOSA on 08/17/24 [facility] AJYA HOPSON ([id number]) 1995 F Date Time Provider Department 08/06/24 9:00 AM [facility]URSE [facility] OBGYWM During your visit today, we recorded the following information about you: Blood pressure Weight 112/88 83.6 kg Keysha Rouse RN 08/06/2024 10:14 AM Addendum Patient identified by name and date of . Jaya Hopson is here for a Depo Provera injection. Patient brought medication. Medication verified by dispensing pharmacist. Date last injected: 05/13/2024 Depo-Provera, 150 mg, administered IM left deltoid, Lot # [id number], expiration date 12/30/2025. Depo-Provera was given without incident. Date of last menses: Patient's last menstrual period was 05/04/2024. Irregular bleeding - No Menses ceased - Yes Patient instructed to return to clinic in 12 weeks. [email or web address] Provider AT was present in office at time of injection. Keysha Rouse RN Allergies As of Date: 08/06/2024 Noted Allergy Reaction FLUOCINOLONE 08/11/2014 10 - Anaphylaxis AMOXICILLIN 08/11/2014 4 - Hives Date Reviewed: 08/06/2024 Reviewed by: Keysha Rouse, GABE - Fully Assessed Reason for Visit: nurse visit-depo [Other] Depo Provera Injection [1655] Primary Visit Diagnosis:Encounter for management and injection of depo-Provera [Z30.42] Prescriptions as of 08/06/2024 - sertraline (ZOLOFT) 25 mg tablet Take 25 mg by mouth once daily. - hydrOXYzine pamoate (VISTARIL) 25 mg capsule Take 25 mg by mouth as needed for anxiety. - ARIPiprazole (ABILIFY) 2 mg tablet Take 1 tablet by mouth every afternoon. - traZODone (DESYREL) 50 mg tablet TAKE 1/2 (ONE-HALF) TABLET BY MOUTH ONCE DAILY AT BEDTIME NEEDED - albuterol HFA (PROVENTIL HFA, VENTOLIN HFA) 90 mcg/actuation inhaler Inhale 2 Puffs as instructed every 4 hours as needed for wheezing/shortness of breath. - medroxyPROGESTERone (DEPO-PROVERA) 150 mg/mL injection Inject 1 mL intramuscularly every 12 weeks. - mv-min/iron/folic/calci um/vitK (WOMEN'S MULTIVITAMIN ORAL) Take 2 tablets by mouth once daily. - Magnesium 250 mg tab Take 250 mg by mouth once daily. - Biotin 10,000 mcg cap Take 1 capsule by mouth once daily. - cholecalciferol (VITAMIN D-3) 50 mcg (2,000 unit) tablet Take 1,000 Units by mouth once daily. - calcium carbonate (CALCIUM 600 ORAL) Take 1 tablet by mouth three times a day. - thiamine (VITAMIN B-1) 50 mg tablet Take 50 mg by mouth once daily. - cyanocobalamin (VITAMIN B-12) 500 mcg tablet Take 1 tablet by mouth every other week. - galcanezumab-gnlm (EMGALITY PEN) 120 mg/mL pen Inject 1 mL subcutaneously once every month. Do not shake. - ubrogepant (UBRELVY) 100 mg tablet Take 1/2 to 1 tablet by mouth as needed at onset of migraine, repeat in 2 hours if needed. Facility-Administered Medications as of 08/06/2024 - medroxyPROGESTERone 150 mg injection (DEPO-PROVERA) Problem List As Of Date 08/06/2024 Noted Resolved Chiari malformation type I (HCC) [G93.5] 08/20/2017 Vision blurred [H53.8] 08/20/2017 Dizziness and giddiness [R42] 08/20/2017 Nonintractable headache [R51.9] 08/20/2017 Brain lesion [G93.9] 08/20/2017 Migraine with aura and without status migrainos*10/14/2017 Imbalance [R26.89] 01/29/2024 Posture abnormality [R29.3] 01/29/2024 Dizziness [R42] 01/29/2024 Mild intermittent asthma with acute exacerbatio*02/05/2024 Obesity, Class I, BMI 30-34.9 [E66.811] 02/19/2024 Anxiety and depression [F41.9, F32.A] 04/13/2024 Disposition: Return in 12 weeks (on 10/29/2024). Follow-up and Disposition History for Encounter Date Provider Department Center 08/06/2024 [id number]-DAJSU [facility] *CARISSA Trish Waller Encounter Status:Closed by KEYSHA ROUSE on 08/06/24 [facility] 36on 08-05-2024 36 I called this patien t to schedule a visit in [place] for september per Dr. Garcia. The patient is scheduled for 09/04/24. [facility] 36 I called this patien t to schedule a visit in [place] for september per Dr. Garcia. The patient is scheduled for 09/04/24. [place] [phone] Pt notified that Weg ovy was filled. Please reach out to pt for appt in September. Thanks! [place] [phone] Please let the pt kn ow wegovy is refilled Please offer an melissa in September for wegovy titration. Thank you [place] [phone] Pt requests refill f or Wegovy. Slight side effects and curbing appetite. Pended. Thank you! [facility] CNPNon 07-10-2024 CNPN Telephone (AGFAMPLE) JAYA HOPSON ([id number]) 1995 F Date Time Provider Department 07/10/24 CEM BOGGS During your visit today, we recorded the following information about you: Kristen Ireland MA 07/10/2024 7:13 AM Signed ----- Message from Oumou Mendenhall MA sent at 04/09/2024 3:35 PM EDT ----- Patient due for 3 month recheck vitamin B12 after reducing supplement. LAXMI Reddy Kimberly C, DO 07/14/2024 7:12 PM Signed Order attached DO Flakita Arellano Kimberly C, DO 07/14/2024 7:13 PM Signed Addended by: CEM BOGGS on: 07/14/2024 07:13 PM Modules accepted: Orders KomalblossomLuke MA 07/15/2024 8:12 AM Signed Left message on patients voicemail with all information. Luke Stephenson MA Allergies As of Date: 07/10/2024 Noted Allergy Reaction FLUOCINOLONE 08/11/2014 10 - Anaphylaxis AMOXICILLIN 08/11/2014 4 - Hives Date Reviewed: 05/13/2024 Reviewed by: Renae Everett, GABE - Fully Assessed Reason for Visit: Lab Orders [1688] Primary Visit Diagnosis:High serum vitamin B12 [R79.89] Order(s):VITAMIN B12 [SQB12] Order #: [id number] FUTURE Prescriptions as of 07/15/2024 - sertraline (ZOLOFT) 25 mg tablet Take 25 mg by mouth once daily. - hydrOXYzine pamoate (VISTARIL) 25 mg capsule Take 25 mg by mouth as needed for anxiety. - ARIPiprazole (ABILIFY) 2 mg tablet Take 1 tablet by mouth every afternoon. - traZODone (DESYREL) 50 mg tablet TAKE 1/2 (ONE-HALF) TABLET BY MOUTH ONCE DAILY AT BEDTIME NEEDED - albuterol HFA (PROVENTIL HFA, VENTOLIN HFA) 90 mcg/actuation inhaler Inhale 2 Puffs as instructed every 4 hours as needed for wheezing/shortness of breath. - medroxyPROGESTERone (DEPO-PROVERA) 150 mg/mL injection Inject 1 mL intramuscularly every 12 weeks. - mv-min/iron/folic/calci um/vitK (WOMEN'S MULTIVITAMIN ORAL) Take 2 tablets by mouth once daily. - Magnesium 250 mg tab Take 250 mg by mouth once daily. - Biotin 10,000 mcg cap Take 1 capsule by mouth once daily. - cholecalciferol (VITAMIN D-3) 50 mcg (2,000 unit) tablet Take 1,000 Units by mouth once daily. - calcium carbonate (CALCIUM 600 ORAL) Take 1 tablet by mouth three times a day. - thiamine (VITAMIN B-1) 50 mg tablet Take 50 mg by mouth once daily. - cyanocobalamin (VITAMIN B-12) 500 mcg tablet Take 1 tablet by mouth every other week. - galcanezumab-gnlm (EMGALITY PEN) 120 mg/mL pen Inject 1 mL subcutaneously once every month. Do not shake. - ubrogepant (UBRELVY) 100 mg tablet Take 1/2 to 1 tablet by mouth as needed at onset of migraine, repeat in 2 hours if needed. Facility-Administered Medications as of 07/15/2024 - medroxyPROGESTERone 150 mg injection (DEPO-PROVERA) Problem List As Of Date 07/10/2024 Noted Resolved Chiari malformation type I (HCC) [G93.5] 08/20/2017 Vision blurred [H53.8] 08/20/2017 Dizziness and giddiness [R42] 08/20/2017 Nonintractable headache [R51.9] 08/20/2017 Brain lesion [G93.9] 08/20/2017 Migraine with aura and without status migrainos*10/14/2017 Imbalance [R26.89] 01/29/2024 Posture abnormality [R29.3] 01/29/2024 Dizziness [R42] 01/29/2024 Mild intermittent asthma with acute exacerbatio*02/05/2024 Obesity, Class I, BMI 30-34.9 [E66.811] 02/19/2024 Anxiety and depression [F41.9, F32.A] 04/13/2024 Encounter Status:Closed by KRISTEN IRELAND on 07/10/24 [facility] [id number] 07-06-2024 [id number] Deepak is sent to [facility] pharmacy Please criss toussaint and let the pt know If denied please criss birch and let the pt know Thank you [facility] [phone] Pt would like to try GLP 1. Please advise. Thanks! [facility] CNPNon 06-02-2024 [facility] Telephone (AGFAMPLE) MARK ANTHONYJAYA ([id number]) 1995 F Date Time Provider Department 06/02/24 CEM BOGGS During your visit today, we recorded the following information about you: Luke Stephenson MA 06/02/2024 2:43 PM Signed Patient lm on vm stating she send a my chart message and wants to know if someone can address it. Please advise. LAXMI Castelan Kimberly C, DO 06/02/2024 2:57 PM Signed It has been addressed Cem Boggs DO Allergies As of Date: 06/02/2024 Noted Allergy Reaction FLUOCINOLONE 08/11/2014 10 - Anaphylaxis AMOXICILLIN 08/11/2014 4 - Hives Date Reviewed: 05/13/2024 Reviewed by: Renae Everett, GABE - Fully Assessed Prescriptions as of 06/02/2024 - sertraline (ZOLOFT) 25 mg tablet Take 25 mg by mouth once daily. - hydrOXYzine pamoate (VISTARIL) 25 mg capsule Take 25 mg by mouth as needed for anxiety. - ARIPiprazole (ABILIFY) 2 mg tablet Take 1 tablet by mouth every afternoon. - traZODone (DESYREL) 50 mg tablet TAKE 1/2 (ONE-HALF) TABLET BY MOUTH ONCE DAILY AT BEDTIME NEEDED - albuterol HFA (PROVENTIL HFA, VENTOLIN HFA) 90 mcg/actuation inhaler Inhale 2 Puffs as instructed every 4 hours as needed for wheezing/shortness of breath. - medroxyPROGESTERone (DEPO-PROVERA) 150 mg/mL injection Inject 1 mL intramuscularly every 12 weeks. - mv-min/iron/folic/calci um/vitK (WOMEN'S MULTIVITAMIN ORAL) Take 2 tablets by mouth once daily. - Magnesium 250 mg tab Take 250 mg by mouth once daily. - Biotin 10,000 mcg cap Take 1 capsule by mouth once daily. - cholecalciferol (VITAMIN D-3) 50 mcg (2,000 unit) tablet Take 1,000 Units by mouth once daily. - calcium carbonate (CALCIUM 600 ORAL) Take 1 tablet by mouth three times a day. - thiamine (VITAMIN B-1) 50 mg tablet Take 50 mg by mouth once daily. - cyanocobalamin (VITAMIN B-12) 500 mcg tablet Take 1 tablet by mouth every other week. - galcanezumab-gnlm (EMGALITY PEN) 120 mg/mL pen Inject 1 mL subcutaneously once every month. Do not shake. - ubrogepant (UBRELVY) 100 mg tablet Take 1/2 to 1 tablet by mouth as needed at onset of migraine, repeat in 2 hours if needed. Facility-Administered Medications as of 06/02/2024 - medroxyPROGESTERone 150 mg injection (DEPO-PROVERA) Problem List As Of Date 06/02/2024 Noted Resolved Chiari malformation type I (HCC) [G93.5] 08/20/2017 Vision blurred [H53.8] 08/20/2017 Dizziness and giddiness [R42] 08/20/2017 Nonintractable headache [R51.9] 08/20/2017 Brain lesion [G93.9] 08/20/2017 Migraine with aura and without status migrainos*10/14/2017 Imbalance [R26.89] 01/29/2024 Posture abnormality [R29.3] 01/29/2024 Dizziness [R42] 01/29/2024 Mild intermittent asthma with acute exacerbatio*02/05/2024 Obesity, Class I, BMI 30-34.9 [E66.811] 02/19/2024 Anxiety and depression [F41.9, F32.A] 04/13/2024 Encounter Status:Closed by LUKE STEPHENSON on 06/02/24 [facility] 05-11-2024 [facility] Telephone (KAROL) JAYA HOPSON ([id number]) 1995 F Date Time Provider Department 05/11/24 CEM BOGGS During your visit today, we recorded the following information about you: Oumou Ramirez MA 05/11/2024 7:46 AM Signed ----- Message from Kristen Echevarria MA sent at 04/09/2024 10:12 AM EDT ----- vit b12 in one month Cem Boggs DO 05/11/2024 11:13 AM Signed Order attached DO Wesley Arellano Mary, MA 05/11/2024 2:02 PM Signed Lm on pt. Vm with all information. Luke Stephenson MA Allergies As of Date: 05/11/2024 Noted Allergy Reaction FLUOCINOLONE 08/11/2014 10 - Anaphylaxis AMOXICILLIN 08/11/2014 4 - Hives Date Reviewed: 05/01/2024 Reviewed by: Rimma Panda APRN.HIDE CURER - Fully Assessed Reason for Visit: Lab Orders [1688] Primary Visit Diagnosis:High serum vitamin B12 [R79.89] Order(s):VITAMIN B12 [SQB12] Order #: [id number] FUTURE Prescriptions as of 05/11/2024 - ARIPiprazole (ABILIFY) 2 mg tablet Take 1 tablet by mouth every afternoon. - traZODone (DESYREL) 50 mg tablet TAKE 1/2 (ONE-HALF) TABLET BY MOUTH ONCE DAILY AT BEDTIME NEEDED - albuterol HFA (PROVENTIL HFA, VENTOLIN HFA) 90 mcg/actuation inhaler Inhale 2 Puffs as instructed every 4 hours as needed for wheezing/shortness of breath. - medroxyPROGESTERone (DEPO-PROVERA) 150 mg/mL injection Inject 1 mL intramuscularly every 12 weeks. - mv-min/iron/folic/calci um/vitK (WOMEN'S MULTIVITAMIN ORAL) Take 2 tablets by mouth once daily. - Magnesium 250 mg tab Take 250 mg by mouth once daily. - Biotin 10,000 mcg cap Take 1 capsule by mouth once daily. - cholecalciferol (VITAMIN D-3) 50 mcg (2,000 unit) tablet Take 1,000 Units by mouth once daily. - calcium carbonate (CALCIUM 600 ORAL) Take 1 tablet by mouth three times a day. - thiamine (VITAMIN B-1) 50 mg tablet Take 50 mg by mouth once daily. - cyanocobalamin (VITAMIN B-12) 500 mcg tablet Take 1 tablet by mouth every other week. - galcanezumab-gnlm (EMGALITY PEN) 120 mg/mL pen Inject 1 mL subcutaneously once every month. Do not shake. - ubrogepant (UBRELVY) 100 mg tablet Take 1/2 to 1 tablet by mouth as needed at onset of migraine, repeat in 2 hours if needed. Facility-Administered Medications as of 05/11/2024 - medroxyPROGESTERone 150 mg injection (DEPO-PROVERA) Problem List As Of Date 05/11/2024 Noted Resolved Chiari malformation type I (HCC) [G93.5] 08/20/2017 Vision blurred [H53.8] 08/20/2017 Dizziness and giddiness [R42] 08/20/2017 Nonintractable headache [R51.9] 08/20/2017 Brain lesion [G93.9] 08/20/2017 Migraine with aura and without status migrainos*10/14/2017 Imbalance [R26.89] 01/29/2024 Posture abnormality [R29.3] 01/29/2024 Dizziness [R42] 01/29/2024 Mild intermittent asthma with acute exacerbatio*02/05/2024 Obesity, Class I, BMI 30-34.9 [E66.9] 02/19/2024 Anxiety and depression [F41.9, F32.A] 04/13/2024 Encounter Status:Closed by LUKE STEPHENSON on 05/11/24 [facility] [place] 04-13-2024 YAMEL Office Visit (MAUREEN YOUNGER) JAYA HOPSON ([id number]) 1995 F Date Time Provider Department 04/13/24 11:00 AM CEM BOGGS During your visit today, we recorded the following information about you: Temperature Pulse Respiration Blood pressure 98.2 degrees 64/minute 16/minute 98/68 Weight Height 81.2 kg 1.645 m Cem Boggs, DO 04/13/2024 2:26 PM Signed Subjective The history is provided by the patient. 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 Taylor at [facility] in October, including EKG and echo, and her workup was normal She is concerned about the shakiness in her hands, and the fact that her migraines last a long time She has a family history of Parkinson's disease in her grandmother and aunt She has tremors that wax and wane, primarily in her hands She gets weak, hot and dizzy when she is shaking, does not perspire, and feels like she cannot cool down ALLERGIES Allergen Reactions Fluocinolone Anaphylaxis Amoxicillin Hives Current Outpatient Medications Medication Sig Dispense Refill ARIPiprazole (ABILIFY) 2 mg tablet Take 1 tablet by mouth every afternoon. propranolol (INDERAL) 10 mg tablet Take 1 tablet by mouth every 12 hours. traZODone (DESYREL) 50 mg tablet TAKE 1/2 (ONE-HALF) TABLET BY MOUTH ONCE DAILY AT BEDTIME NEEDED albuterol HFA (PROVENTIL HFA, VENTOLIN HFA) 90 mcg/actuation inhaler Inhale 2 Puffs as instructed every 4 hours as needed for wheezing/shortness of breath. 1 Each 2 medroxyPROGESTERone (DEPO-PROVERA) 150 mg/mL injection Inject 1 mL intramuscularly every 12 weeks. 1 mL 4 mv-min/iron/folic/calci um/vitK (WOMEN'S MULTIVITAMIN ORAL) Take 2 tablets by mouth once daily. Magnesium 250 mg tab Take 250 mg by mouth once daily. Biotin 10,000 mcg cap Take 1 capsule by mouth once daily. cholecalciferol (VITAMIN D-3) 50 mcg (2,000 unit) tablet Take 1,000 Units by mouth once daily. calcium carbonate (CALCIUM 600 ORAL) Take 1 tablet by mouth three times a day. thiamine (VITAMIN B-1) 50 mg tablet Take 50 mg by mouth once daily. cyanocobalamin (VITAMIN B-12) 500 mcg tablet Take 1 tablet by mouth every other week. galcanezumab-gnlm (EMGALITY PEN) 120 mg/mL pen Inject 1 mL subcutaneously once every month. Do not shake. 1 Each 11 ubrogepant (UBRELVY) 100 mg tablet Take 1/2 to 1 tablet by mouth as needed at onset of migraine, repeat in 2 hours if needed. 10 tablet 11 melatonin 1 mg tablet Take 1 tablet by mouth at bedtime as needed for insomnia. (Patient not taking: Reported on 04/13/2024) galcanezumab-gnlm (EMGALITY PEN) 120 mg/mL pen Inject 2 pens (240 mg) under the skin 1 time only for initial loading dose. Refrigerate. Do not shake. (Patient not taking: Reported on 04/13/2024) 2 Each 0 Current Facility-Administered Medications Medication Dose Route Frequency Provider Last Rate Last Admin medroxyPROGESTERone 150 mg injection (DEPO-PROVERA) 150 mg INTRAMUSCULAR every 12 weeks Daniel Olvio APRN.CNM 150 mg at 02/19/24 1267 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, Not Intractable Imbalance Posture Abnormality Dizziness Mild Intermittent Asthma With Acute Exacerbation Obesity, Class I, Bmi 30-34.9 Social History Tobacco Use Smoking status: Never Smokeless tobacco: Never Vaping Use Vaping Use: Never used Substance Use Topics Alcohol use: Not Currently Drug use: No Family History Problem Relation Age of Onset Diabetes Mother Hypertension Mother Heart Attack Mother Diabetes Father Prostate Cancer Father Stroke Father Diabetes Sister other (other) Sister No Known Problems Maternal Grandmother Lung Cancer Maternal Grandfather Colon Cancer Paternal Grandfather Reviewed past medical history, family history and surgeries. All medications and supplements were reviewed with the patient. Review of Systems Constitutional: Negative for chil (more content not included)... Normal [facility] Emergency Department Summary on 03-04-2024 Emergency Department Summary [facility] Medical Records Department [address] [place] [address] Emergency Department Summary 03/04/24 MR#: [id number] Acct: [id number] Name: JAYA HOPSON Rep #: [id number] : 1995 28 From: Artis Valdovinos MD PCP: Dr. Cem Boggs, DO Status:REG ER Location: ED HPI History of Present Illness Chief Complaint: General Illness Informant: patient Narrative Narrative: 28-year-old female presents wanting treatment for her migraine. She states she started having some low-grade fevers and congestion yesterday and did at home COVID test and is testing positive. Started having symptoms yesterday. She had a little bit of wheezing with regards to her asthma yesterday but not now. Denies any nausea, vomiting, focal neurologic symptoms, confusion, neck stiffness, vision changes. She has had some photophobia. She has had prior COVID vaccinations. [facility] Medical History Asthma BP (high blood pressure) Anxiety Migraines Home Medications ???Medication ???Instructions ???Recorded ???Last Taken ???Type multivitamin 1 tab PO DAILY 03/23/22 Unknown History Allergy/AdvReac Type Severity Reaction Status Date / Time amoxicillin Allergy Hives Verified 03/04/24 04:34 Surgical History (Updated 03/04/24 @ 04:38 by Mariela Kelsey) History of gastric bypass History of tonsillectomy and adenoidectomy Social History household members: family Smoking Status: Never smoker alcohol intake: never substance use type: does not use ROS ROS ED Constitutional Constitutional ED: Denies chills or fever(s) Eyes Eyes: Reports photophobia; Denies blurry vision or diplopia ENT ENT ED: Reports nasal congestion, rhinorrhea and sore throat; Denies ear pain Cardiovascular Cardiovascular: Denies chest pain or palpitations Respiratory/Chest Respiratory/Chest: Reports cough; Denies dyspnea Gastrointestinal Gastrointestinal: Denies abdominal pain, diarrhea, nausea or vomiting Genitourinary Genitourinary ED: Denies dysuria or hematuria Musculoskeletal Musculoskeletal: Denies myalgias or neck pain Integumentary Denies abscess or rash Neurologic Neurologic: Reports headache(s); Denies paresthesias or weakness Psychiatric Psychiatric: Denies depression or suicidal thoughts Endocrine Endocrinology: Denies polydipsia or polyuria EXAM Physical Exam Const Vital Signs: 03/04/24 04:34 03/04/24 04:34 03/04/24 04:41 Temperature 98.8 F 98.8 F Temperature Source Oral Oral Pulse Rate 77 77 Respiratory Rate 18 18 Respiratory Effort Normal Non-Labored Respiratory Pattern Normal Blood Pressure 128/74 H 128/74 H Blood Pressure Mean 92 92 Pulse Ox 100 100 Oxygen Delivery Method Room Air Room Air 03/04/24 05:41 Temperature 98.8 F Temperature Source Oral Pulse Rate 79 Respiratory Rate 17 Respiratory Effort Respiratory Pattern Blood Pressure 117/82 H Blood Pressure Mean 93 Pulse Ox 98 Oxygen Delivery Method Room Air Positive well nourished and well developed General Appearance ED: well developed and NAD HEENT Reports moist mucous membranes normocephalic and atraumatic Throat: Negative for posterior oropharynx abnormal Eyes PERRL and EOMs intact bilaterally Eyes Narrative: photophobia Neck no lymphadenopathy, supple and no meningeal signs Resp normal respiratory effort and clear to auscultation bilaterally Cardio no murmurs Rate: regular rate; Negative for tachycardic Rhythm: regular rhythm GI non-tender and non-distended Palpation: soft Extremity normal to inspection and full ROM Neuro oriented x3, CN's II-XII intact bilaterally and no sensory deficits noted Sensorium / Orientation: alert Speech: speech normal Gait (Neuro): normal gait Motor Exam: strength 5/5 throughout Psych mental status grossly normal Skin Lesions: no lesions Rashes: no rashes MDM MDM MDM Narrative Medical decision making narrative: Lungs are clear, vital signs are normal including pulse oximetry 100% on room air. No tachycardia or suspicion for PE at this time or COVID pneumonitis. I do not think she needs Paxlovid. Treating her migraine with IV fluids, Reglan, Toradol. On reevaluation she feels much better her headache is completely gone. Vital signs are normal. Reassured given appropriate discharge instructions offered a work note but did not need 1. Discharge Plan Triage Chief Complaint: General Illness ED Provider: Artis Valdovinos Dx/Rx/DC Orders Clinical Impression: COVID-19, Headache, migraine Instructions: Coronavirus Disease 2019 (COVID-19): Caring for Yourself or Others, ED, Migraine (Classical) Pr (more content not included)... Normal [facility] CBC W Auto Differential pane l (Bld)on 02-28-2024 Basophils (Bld) [#/Vol] [facility] C [facility] Basophils/100 WBC (Bld) 0.4 % C [facility] Differential cell count method Nom (Bld) Auto [facility] Eosinophils (Bld) [#/Vol] 0.18 10*3/uL [facility] Eosinophils/100 WBC (Bld) 3.7 % [facility] Erythrocyte distribution width (RBC) [Ratio] 12.5 % 11.5 - 15.0 % [facility] Hematocrit (Bld) [Volume fraction] 41.8 % 36.0 - 46.0 % [facility] Hemoglobin (Bld) [Mass/Vol] 13.8 g/dL 11.5 - 15.5 g/dL [facility] Immature granulocytes (Bld) [#/Vol] [facility] Immature granulocytes/100 WBC (Bld) 0.2 % [facility] Interpretation and review of laboratory results Abnormal [facility] Lymphocytes (Bld) [#/Vol] 2.05 10*3/uL [facility] Lymphocytes/100 WBC (Bld) 41.8 % [facility] MCH (RBC) [Entitic mass] 29.5 pg 26. 0 - 34.0 pg [facility] MCHC (RBC) [Mass/Vol] 33.0 g/dL 30.5 - 36.0 g/dL [facility] MCV (RBC) [Entitic vol] 89.3 fL 80.0 - 100.0 fL [facility] Monocytes (Bld) [#/Vol] 0.25 10*3/uL [facility] Monocytes/100 WBC (Bld) 5.1 % C [facility] Neutrophils (Bld) [#/Vol] 2.39 10*3/uL [facility] Neutrophils/100 WBC (Bld) 48.8 % [facility] Nucleated RBC (Bld) [#/Vol] NINF [facility] Nucleated RBC/100 WBC (Bld) [Ratio] 0.0 % /100 WBC [facility] Platelet mean volume (Bld) [Entitic vol] 12.6 fL 9.0 - 12.7 fL [facility] Platelets (Bld) [#/Vol] 122 10*3/uL Low [facility] RBC (Bld) [#/Vol] 4.68 10*6/uL 3.90 - 5.2 0 m/uL [facility] WBC (Bld) [#/Vol] 4.90 10*3/uL [facility] UA DIP,URINE HCG (POC)on Beta HCG ( test) Ql (U) Negative Negative [facility] Comment on above: Location:[facility], [address], [place], [address] Community Health Nurse Staff (POCT) Internal QC [facility] Location:[facility], [address], [place], [place], [id number] [place] [address] POINT OF CARE [facility] CNTHERAPYon 02-18-2024 CNTHERAPY OT/PT/Speech Visit (LDPT) JAYA HPOSON ([id number]) 1995 F Date Time Provider Department 02/18/24 7:00 AM KRISTIE ROSENTHAL LDPT Date Time Provider Department Center 02/18/2024 7:00 AM [id number], CHRISTI LDPT [facility] Reason for Visit: Physical Therapy [503] PT Discharge [752] Primary Visit Diagnosis:Imbalance [R26.89] Other Visit Diagnoses:Migraine with aura and without status migrainosus, not intractable [G43.109] Posture abnormality [R29.3] Dizziness [R42] Allergies As of Date: 02/18/2024 Noted Allergy Reaction FLUOCINOLONE 08/11/2014 10 - Anaphylaxis AMOXICILLIN 08/11/2014 4 - Hives Date Reviewed: 02/05/2024 Reviewed by: Cem Boggs DO - Fully Assessed Prescriptions as of 04/30/2024 - ARIPiprazole (ABILIFY) 2 mg tablet Take 1 tablet by mouth every afternoon. - traZODone (DESYREL) 50 mg tablet TAKE 1/2 (ONE-HALF) TABLET BY MOUTH ONCE DAILY AT BEDTIME NEEDED - albuterol HFA (PROVENTIL HFA, VENTOLIN HFA) 90 mcg/actuation inhaler Inhale 2 Puffs as instructed every 4 hours as needed for wheezing/shortness of breath. - medroxyPROGESTERone (DEPO-PROVERA) 150 mg/mL injection Inject 1 mL intramuscularly every 12 weeks. - mv-min/iron/folic/calci um/vitK (WOMEN'S MULTIVITAMIN ORAL) Take 2 tablets by mouth once daily. - Magnesium 250 mg tab Take 250 mg by mouth once daily. - Biotin 10,000 mcg cap Take 1 capsule by mouth once daily. - cholecalciferol (VITAMIN D-3) 50 mcg (2,000 unit) tablet Take 1,000 Units by mouth once daily. - calcium carbonate (CALCIUM 600 ORAL) Take 1 tablet by mouth three times a day. - thiamine (VITAMIN B-1) 50 mg tablet Take 50 mg by mouth once daily. - cyanocobalamin (VITAMIN B-12) 500 mcg tablet Take 1 tablet by mouth every other week. - galcanezumab-gnlm (EMGALITY PEN) 120 mg/mL pen Inject 1 mL subcutaneously once every month. Do not shake. - ubrogepant (UBRELVY) 100 mg tablet Take 1/2 to 1 tablet by mouth as needed at onset of migraine, repeat in 2 hours if needed. Facility-Administered Medications as of 04/30/2024 - medroxyPROGESTERone 150 mg injection (DEPO-PROVERA) [employer]: Addendum Therapy (PT/OT/Speech/Resp) ID: [id number] 02/18/2024 7:52 AM Author: KRISTIE ROSENTHAL Signed by KRISTIE ROSENTHAL PT on 02/18/2024 at 7:52 AM * * * This document replaces document [id number] * * * Document text: Program_ID:[id number] Access Code: [email or web address] URL: [email or web address] Date: 02-18-2024 Prepared By: Kristie Rosenthal Program Notes Exercises - Supine Head Nod with Deep Neck Flexor Activation - 1-2 x daily - 5-6 x weekly - 2-3 sets - 5 reps - Prone Cervical Retraction - 1-2 x daily - 5-6 x weekly - 2-3 sets - 5 reps - Seated Shoulder External Rotation - 1-2 x daily - 5-6 x weekly - 2-3 sets - 10 reps Normal [facility] THERAPY NTon 02-18-2024 THERAPY NT HNO ID: [id number] Author: KRISTIE ROSENTHAL, PT Service: Physical Therapy Author Type: Physical Therapist Type: Therapy (PT/OT/Speech/Resp) Filed: 02/18/2024 07:52 Note Text: Program_ID:[id number] Access Code: [email or web address] URL: [email or web address] Date: 02-18-2024 Prepared By: Kristie Rosenthal Program Notes Exercises - Supine Head Nod with Deep Neck Flexor Activation - 1-2 x daily - 5-6 x weekly - 2-3 sets - 5 reps - Prone Cervical Retraction - 1-2 x daily - 5-6 x weekly - 2-3 sets - 5 reps - Seated Shoulder External Rotation - 1-2 x daily - 5-6 x weekly - 2-3 sets - 10 reps Normal [facility] CNTHERAPYon 02-14-2024 CNTHERAPY OT/PT/Speech Visit (LDPT) MARK ANTHONYJAYA ([id number]) 1995 F Date Time Provider Department 02/14/24 7:00 AM KRISTIE ROSENTHAL LDPT Date Time Provider Department Center 02/14/2024 7:00 AM [id number], CHRISTI LDPT [facility] Reason for Visit: Physical Therapy [503] Primary Visit Diagnosis:Imbalance [R26.89] Other Visit Diagnoses:Migraine with aura and without status migrainosus, not intractable [G43.109] Posture abnormality [R29.3] Dizziness [R42] Allergies As of Date: 02/14/2024 Noted Allergy Reaction FLUOCINOLONE 08/11/2014 10 - Anaphylaxis AMOXICILLIN 08/11/2014 4 - Hives Date Reviewed: 02/05/2024 Reviewed by: Cem Boggs DO - Fully Assessed Prescriptions as of 02/14/2024 - mv-min/iron/folic/calci um/vitK (WOMEN'S MULTIVITAMIN ORAL) Take 2 tablets by mouth once daily. - Magnesium 250 mg tab Take 250 mg by mouth once daily. - Biotin 10,000 mcg cap Take 1 capsule by mouth once daily. - cholecalciferol (VITAMIN D-3) 50 mcg (2,000 unit) tablet Take 2,000 Units by mouth once daily. - calcium carbonate (CALCIUM 600 ORAL) Take 1 tablet by mouth three times a day. - thiamine (VITAMIN B-1) 50 mg tablet Take 50 mg by mouth once daily. - cyanocobalamin (VITAMIN B-12) 500 mcg tablet Take 1 tablet by mouth one time a week. - melatonin 1 mg tablet Take 1 tablet by mouth at bedtime as needed for insomnia. - galcanezumab-gnlm (EMGALITY PEN) 120 mg/mL pen Inject 2 pens (240 mg) under the skin 1 time only for initial loading dose. Refrigerate. Do not shake. - galcanezumab-gnlm (EMGALITY PEN) 120 mg/mL pen Inject 1 mL subcutaneously once every month. Do not shake. - ubrogepant (UBRELVY) 100 mg tablet Take 1/2 to 1 tablet by mouth as needed at onset of migraine, repeat in 2 hours if needed. - albuterol HFA (PROVENTIL HFA, VENTOLIN HFA) 90 mcg/actuation inhaler Inhale as instructed. Normal [facility] CNTHERAPYon 02-07-2024 CNTHERAPY OT/PT/Speech Visit (LDPT) JAYA HOPSON ([id number]) 1995 F Date Time Provider Department 02/07/24 2:15 PM KRISTIE ROSENTHAL Date Time Provider Department Center 02/07/2024 2:15 PM [id number], CHRISTI LDPT [facility] Reason for Visit: Physical Therapy [503] Primary Visit Diagnosis:Imbalance [R26.89] Other Visit Diagnoses:Migraine with aura and without status migrainosus, not intractable [G43.109] Posture abnormality [R29.3] Dizziness [R42] Allergies As of Date: 02/07/2024 Noted Allergy Reaction FLUOCINOLONE 08/11/2014 10 - Anaphylaxis AMOXICILLIN 08/11/2014 4 - Hives Date Reviewed: 02/05/2024 Reviewed by: Cem Boggs DO - Fully Assessed Prescriptions as of 02/07/2024 - mv-min/iron/folic/calci um/vitK (WOMEN'S MULTIVITAMIN ORAL) Take 2 tablets by mouth once daily. - Magnesium 250 mg tab Take 250 mg by mouth once daily. - Biotin 10,000 mcg cap Take 1 capsule by mouth once daily. - cholecalciferol (VITAMIN D-3) 50 mcg (2,000 unit) tablet Take 2,000 Units by mouth once daily. - calcium carbonate (CALCIUM 600 ORAL) Take 1 tablet by mouth three times a day. - thiamine (VITAMIN B-1) 50 mg tablet Take 50 mg by mouth once daily. - cyanocobalamin (VITAMIN B-12) 500 mcg tablet Take 1 tablet by mouth one time a week. - melatonin 1 mg tablet Take 1 tablet by mouth at bedtime as needed for insomnia. - galcanezumab-gnlm (EMGALITY PEN) 120 mg/mL pen Inject 2 pens (240 mg) under the skin 1 time only for initial loading dose. Refrigerate. Do not shake. - galcanezumab-gnlm (EMGALITY PEN) 120 mg/mL pen Inject 1 mL subcutaneously once every month. Do not shake. - ubrogepant (UBRELVY) 100 mg tablet Take 1/2 to1 tablet by mouth as needed at onset of migraine, repeat in 2 hours if needed. - albuterol HFA (PROVENTIL HFA, VENTOLIN HFA) 90 mcg/actuation inhaler Inhale as instructed. [employer]: Therapy (PT/OT/Speech/Resp) ID: [id number] 02/07/2024 2:48 PM Author: KRISTIE ROSENTHAL Signed by KRISTIE ROSENTHAL PT on 02/07/2024 at 2:48 PM Document text: Program_ID:[id number] Access Code: [email or web address] URL: [email or web address]/ Date: 02-07-2024 Prepared By: Kristie Rosenthal Program Notes Exercises - Supine Head Nod with Deep Neck Flexor Activation - 1-2 x daily - 5-6 x weekly - 2-3 sets - 10 reps - Hooklying Isometric Upper Neck Rotation - 1-2 x daily - 5-6 x weekly - 2-3 sets - 10 reps - Supine Isometric Neck Sidebend - 1-2 x daily - 5-6 x weekly - 2-3 sets - 10 reps - Supine Shoulder Horizontal Abduction with Resistance - 1-2 x daily - 5-6 x weekly - 2-3 sets - 10 reps Normal [facility] THERAPY NTon 02-07-2024 THERAPY NT HNO ID: [id number] Author: KRISTIE ROSENTHAL, PT Service: Physical Therapy Author Type: Physical Therapist Type: Therapy (PT/OT/Speech/Resp) Filed: 02/07/2024 14:48 Note Text: Program_ID:[id number] Access Code: [email or web address] URL: [email or web address] .[email or web address]/ Date: 02-07-2024 Prepared By: Kristie Rosenthal Program Notes Exercises - Supine Head Nod with Deep Neck Flexor Activation - 1-2 x daily - 5-6 x weekly - 2-3 sets - 10 reps - Hooklying Isometric Upper Neck Rotation - 1-2 x daily - 5-6 x weekly - 2-3 sets - 10 reps - Supine Isometric Neck Sidebend - 1-2 x daily - 5-6 x weekly - 2-3 sets - 10 reps - Supine Shoulder Horizontal Abduction with Resistance - 1-2 x daily - 5-6 x weekly - 2-3 sets - 10 reps Normal [facility] CBC W Auto Differential pane l (Bld)on 02-05-2024 Basophils (Bld) [#/Vol] NINF C [facility] Basophils/100 WBC (Bld) 0.3 % C [facility] Differential cell count method Nom (Bld) Auto [facility] Eosinophils (Bld) [#/Vol] 0.12 10*3/uL [facility] Eosinophils/100 WBC (Bld) 3.3 % [facility] Erythrocyte distribution width (RBC) [Ratio] 12.7 % 11.5 - 15.0 % [facility] Hematocrit (Bld) [Volume fraction] 40.5 % 36.0 - 46.0 % [facility] Hemoglobin (Bld) [Mass/Vol] 13.1 g/dL 11.5 - 15.5 g/dL [facility] Immature granulocytes (Bld) [#/Vol] [facility] Immature granulocytes/100 WBC (Bld) 0.0 % [facility] Interpretation and review of laboratory results Abnormal [facility] Lymphocytes (Bld) [#/Vol] 1.36 10*3/uL [facility] Lymphocytes/100 WBC (Bld) 37.1 % [facility] MCH (RBC) [Entitic mass] 30.4 pg 26. 0 - 34.0 pg [facility] MCHC (RBC) [Mass/Vol] 32.3 g/dL 30.5 - 36.0 g/dL [facility] MCV (RBC) [Entitic vol] 94.0 fL 80.0 - 100.0 fL [facility] Monocytes (Bld) [#/Vol] 0.22 10*3/uL [facility] Monocytes/100 WBC (Bld) 6.0 % C [facility] Neutrophils (Bld) [#/Vol] 1.96 10*3/uL [facility] Neutrophils/100 WBC (Bld) 53.3 % [facility] Nucleated RBC (Bld) [#/Vol] [facility] Nucleated RBC/100 WBC (Bld) [Ratio] [facility] Platelet mean volume (Bld) [Entitic vol] 13.0 fL High 9.0 - 12.7 fL [facility] Platelets (Bld) [#/Vol] 136 10*3/uL Low [facility] RBC (Bld) [#/Vol] 4.31 10*6/uL 3.90 - 5.2 0 m/uL [facility] WBC (Bld) [#/Vol] 3.67 10*3/uL [facility] MR Brain WO and W contrast I Von 12-11-2023 [facility] US Abdomenon 03-25-2024 No acute sonographic abnormality identified. Report Dictated on Electronically Signed By: Adrian Ellsworth MD Electronically Signed Date/Time: 11/25/2023 11:04 AM EDT [employer] Patient Name: JAYA TAMAYO RD, [facility] 1995 [id number] Exam Date/Time: 11/25/2023 09:03 Procedure: US ABDOMEN COMPLETE Ordering Provider: TORREZ LEISA Reason For Exam: RUQ abdominal pain, no prior imaging EXAMINATION: Complete abdominal ultrasound. EXAM DATE & TIME: 11/25/2023 9:03 AM EDT INDICATION: RUQ abdominal pain, no prior imaging ADDITIONAL INFORMATION: 28-year-old female with right upper quadrant abdominal pain presents for evaluation COMPARISON: Complete abdominal ultrasound dated 04/10/2022 LIMITATIONS: As below TECHNIQUE: Ultrasound real-time scan with image documentation of the abdominal contents was performed. Color Doppler imaging was also employed. FINDINGS: LIVER Greatest transverse dimension: 12.7 cm. Echogenicity: Normal. Surface nodularity: Not visualized. Masses (size and location): None. GALLBLADDER Size and morphology: Normal caliber and wall thickness. Cholelithiasis: None. Pericholecystic fluid: None. Sonographic Urena's sign: Negative. BILE DUCTS Intrahepatic ducts: No biliary dilation Common bile duct: Normal caliber. Diameter: 3 mm PANCREAS The imaged portion of the pancreatic head is unremarkable. Visualization of the body and tail is limited due to overlying bowel gas artifact. RIGHT KIDNEY Size: 9.5 x 5.7 x 4.0 cm Renal cortex: Normal. Hydronephrosis: None. Calculi, cysts or masses: None. LEFT KIDNEY Size: 9.4 x 4.8 x 5.5 cm Renal cortex: Normal. Hydronephrosis: None. Calculi, cysts or masses: None. SPLEEN Size: 7.2 x 3.4 x 2.9 cm Parenchyma: Unremarkable. VESSELS Aorta: Visualized portions are unremarkable. IVC: Visualized portions are unremarkable. OTHER FINDINGS None. [facility] [employer] Adrian Ellsworth MD - 11/25/2023 Patient Name: JAYA HOPSON: 1995 [facility]#: [id number] Exam Date/Time: 11/25/2023 09:03 Procedure: US ABDOMEN COMPLETE Ordering Provider: TORREZ LEISA Reason For Exam: RUQ abdominal pain, no prior imaging EXAMINATION: Complete abdominal ultrasound. EXAM DATE & TIME: 11/25/2023 9:03 AM EDT INDICATION: RUQ abdominal pain, no prior imaging ADDITIONAL INFORMATION: 28-year-old female with right upper quadrant abdominal pain presents for evaluation COMPARISON: Complete abdominal ultrasound dated 04/10/2022 LIMITATIONS: As below TECHNIQUE: Ultrasound real-time scan with image documentation of the abdominal contents was performed. Color Doppler imaging was also employed. FINDINGS: LIVER Greatest transverse dimension: 12.7 cm. Echogenicity: Normal. Surface nodularity: Not visualized. Masses (size and location): None. GALLBLADDER Size and morphology: Normal caliber and wall thickness. Cholelithiasis: None. Pericholecystic fluid: None. Sonographic Urena's sign: Negative. BILE DUCTS Intrahepatic ducts: No biliary dilation Common bile duct: Normal caliber. Diameter: 3 mm PANCREAS The imaged portion of the pancreatic head is unremarkable. Visualization of the body and tail is limited due to overlying bowel gas artifact. RIGHT KIDNEY Size: 9.5 x 5.7 x 4.0 cm Renal cortex: Normal. Hydronephrosis: None. Calculi, cysts or masses: None. LEFT KIDNEY Size: 9.4 x 4.8 x 5.5 cm Renal cortex: Normal. Hydronephrosis: None. Calculi, cysts or masses: None. SPLEEN Size: 7.2 x 3.4 x 2.9 cm Parenchyma: Unremarkable. VESSELS Aorta: Visualized portions are unremarkable. IVC: Visualized portions are unremarkable. OTHER FINDINGS None. IMPRESSION: No acute sonographic abnormality identified. Report Dictated on Electronically Signed By: Adrian Ellsworth MD Electronically Signed Date/Time: 11/25/2023 11:04 AM EDT [employer] Radiology Study observation (narrative) Sadiq alth US AbdomenOrdered By: Enrique Ellsworth on 11-25-2023 [employer] Work Phone: HOLTER MONITOR- MAIL IN (3 T O 7 DAYS)on 10-10-2023 HOLTER MONITOR- MAIL IN (3 TO 7 DAYS) This is a summary report. The complete report is available in the patient's medical record. If you cannot access the medical record, please contact the sending organization for a detailed fax or copy. ?? HOLTER REPORT: 09/22/2023 - 09/25/2023 ?? INDICATIONS: SYNCOPE 3-day Holter monitor. Diagnostic time 2 days 12 hours Overall rhythm is sinus with average heart rate 79 bpm. Heart rate in sinus ranges from 50 to bpm to 146 bpm. Rare PVCs Rare PACs No patient events No atrial fibrillation No significant pauses Normal [facility] ECHOCARDIOGRAM COMPLETEon ECHOCARDIOGRAM COMPLETE Patient Info Name: JAYA HOPSON Age: 28 years : 1995 Gender: Female Ht: 168 cm Wt: 86 kg BSA: 2.03 m2 HR: 65 bpm BP: 123 / 88 mmHg Heart Rhythm: Sinus Rhythm Technical Quality: Fair Exam Date: 09/17/2023 8:18 AM Patient Status: Outpatient Collaborating Supervising Physician: Rehana Bills, ARTURO, YOUSIF Exam Type: ECHOCARDIOGRAM COMPLETE Study Info Indications - Abnormal electrocardiogram [ECG] [EKG] R55 - Syncope and collapse Referring Physician: FAITH TAYLOR ; [id number] BMI: 30.67 kg/m2 Summary 1. Left ventricular systolic function is normal with an ejection fraction by Biplane Method of Discs of 61 %. 2. Right ventricular size and systolic function are normal. 3. The left ventricular diastolic function is normal. 4. No hemodynamically significant valvular disease. History/Risk Factors Tobacco Use: Never History/Risk Factors syncope. Procedure(s): Complete two-dimensional, color flow and Doppler transthoracic echocardiogram is performed. Left Ventricle Left ventricular chamber dimension is normal. Left ventricular systolic function is normal with an ejection fraction by Biplane Method of Discs of 61 %. Normal left ventricular mass. Left ventricular segmental wall motion is normal. The left ventricular diastolic function is normal. Right Ventricle Right ventricular size and systolic function are normal. Left Atria Left atrial chamber is normal with a left atrial volume index of 16 ml/m2 by BP MOD. Right Atria Right atrial chamber dimension is normal. Pericardium/Pleural There is no pericardial effusion. Inferior Vena Cava Normal inferior vena cava with >50% collapse upon inspiration consistent with elevated right atrial pressure. Aorta The aortic measurements are indexed to age and body surface area. The aortic root is normal measuring 2.7 cm with an index of 1.3 cm/m2. The proximal ascending aorta is normal measuring 3.0 cm with an index of 1.5 cm/m2. Wall Motion Scoring Wall Motion Scoring Index: 1.00 Left Ventricular Outflow Tract - Name Value Normal - LVOT 2D - LVOT Diameter 2.0 cm LVOT Doppler - LVOT Peak Velocity 1.2 m/s LVOT Peak Gradient 6 mmHg LVOT Mean Gradient 3 mmHg LVOT VTI 25 cm LVOT VTI/AV VTI Ratio 1.0 LVOT Stroke Volume 80 ml LVOT Stroke Index 39.39 ml/m2 Pulmonic Valve - Name Value Normal - RVOT Doppler - RVOT Peak Velocity 72 cm/s RVOT Peak Gradient 2 mmHg RVOT Mean Gradient 1 mmHg RVOT VTI 17 cm PV Doppler - PV Peak Velocity 0.95 m/s PV Peak Gradient 4 mmHg PV Mean Gradient 2 mmHg PV VTI 21 cm Mitral Valve - Name Value Normal - MV Doppler - MV Peak Velocity 1.09 m/s MV Peak Gradient 5 mmHg MV Mean Gradient 1 mmHg MV VTI 32 cm MV Decel [place] 473 cm/s2 MV PHT 64 ms MV Area (PHT) 3.4 cm2 4.0-5.0 MV Area (Cont Eq VTI) 2.5 cm2 MV Area Index (Cont Eq VTI) 1.24 cm2/m2 MV DVI 1.27 MV Diastolic Function - MV E Peak Velocity 1.04 m/s MV A Peak Velocity 0.53 m/s MV E/A 2.0 MV Decel Time 221 ms MV Annular TDI - MV Septal e' Velocity 16.9 cm/s >=8.0 MV E/e' (Septal) 6.2 <=8.0 MV Lateral e' Velocity 16.6 cm/s >=10.0 MV E/e' (Lateral) 6.3 <=8.0 MV e' Average 16.79 cm/s MV E/e' (Average) 6.2 Tricuspid Valve - Name Value Normal - TV Regurgitation Doppler - TR Peak Velocity 2.12 m/s TR Peak Gradient 18 mmHg Estimated PAP/RSVP - RA Pressure 3 mmHg <=5 PA Systolic Pressure 21 mmHg <=36 RV Systolic Pressure 21 mmHg <36 TV Annular TDI - RV s' Velocity 0.2 m/s 0.1-0.2 Aorta - Name Value Normal ----- (more content not included)... Normal [facility] XR ORTHO ANKLE LEFT 3 VIEWSo n 08-20-2023 XR ORTHO ANKLE LEFT 3 VIEWS 3 views of the left ankle reviewed today AP ankle mortise and lateral. Persistent visualization of posterior malleolus lucency and fracture with out increased displacement. Appears to have increased trabeculation but difficult to fully appreciate secondary to double density of the fibula. Dictated by: SINCERE CORMIER on SatAug 20, 2023 7:40:43 AM EST Transcribed by: SINCERE CORMIER on SatAug 20, 2023 7:40:43 AM EST Finalized by: SINCERE CORMIER on SatAug 20, 2023 7:40:43 AM EST Normal [facility] Comment on above: Order Comment: Injur y/Trauma or Illness?:Injury/Trauma How long have you had these symptoms (acute/chronic)?:Acute Reason for exam?:pain left ankle History of cancer?:Unknown Surgeries, chemotherapy, or radiation?:Unknown Type of Exam?:Subsequent/Follow-up Mechanism of injury?:pain left ankle Pathologist Blood Smear Inte rpretationOrdered By: Wesley Hernandes on 08-16-2023 Erythrocyte distribution width (RBC) [Entitic vol] 14.5 % 11.6 - 14.8 % [facility] Hematocrit (Bld) [Volume fraction] 39.8 % 36.0 - 46.0 % [facility] Hemoglobin (Bld) [Mass/Vol] 12.7 g/dL 12.0 - 16.0 g/dL [facility] Interpretation and review of laboratory results Abnormal [facility] MCH (RBC) [Entitic mass] 29.8 pg 26. 0 - 34.0 pg [facility] MCHC (RBC) [Mass/Vol] 31.9 g/dL 31.0 - 37.0 g/dL [facility] MCV (RBC) [Entitic vol] 93.4 fL 80.0 - 100.0 fL [facility] Nucleated RBC (Bld) [#/Vol] 0.00 10*3/uL [facility] Nucleated RBC/100 WBC (Bld) [Ratio] 0.0 % [facility] Pathologist review Pathologist comment (Bld) [Interp] Reviewed [facility] Platelets (Bld) [#/Vol] 120 10*3/uL Low [facility] RBC (Bld) [#/Vol] 4.26 10*6/uL [facility] WBC (Bld) [#/Vol] 3.52 10*3/uL Low [facility] See pathology report #[id number] [facility] Vaginitis DNA ProbesOrdered By: Nayeli Alvarez on 08-08-2023 Loni sp DNA Probe+sig amp Ql (Vag fld) Negative Negative [facility] G. vaginalis DNA Probe+sig amp Ql (Vag fld) Positive Abnormal Negative [facility] Comment on above: The presence of Siva nerella vaginalis, although suggestive, is not diagnostic for bacterial vaginosis. Results should be interpreted in conjunction with other clinical and laboratory data. Interpretation and review of laboratory results Abnormal [facility] T. vaginalis DNA Probe+sig amp Ql (Vag fld) Negative Negative [facility] XR ORTHO ANKLE LEFT 3 VIEWSo n 07-30-2023 XR ORTHO ANKLE LEFT 3 VIEWS 3 views of the left ankle reviewed today AP ankle mortise and lateral. Persistent visualization of posterior malleolus lucency and fracture with out increased displacement. Appears to have increased trabeculation but difficult to fully appreciate secondary to double density of the fibula. Dictated by: SINCERE CORMIER on SatJul 30, 2023 4:03:51 PM EST Transcribed by: SINCERE CORMIER on SatJul 30, 2023 4:03:51 PM EST Finalized by: SINCERE CORMIER on SatJul 30, 2023 4:03:51 PM EST Normal [facility] Comment on above: Order Comment: Injur y/Trauma or Illness?:Injury/Trauma How long have you had these symptoms (acute/chronic)?:Acute Reason for exam?:pain left ankle History of cancer?:Unknown Surgeries, chemotherapy, or radiation?:Unknown Type of Exam?:Subsequent/Follow-up Mechanism of injury?:pain left ankle XR ORTHO ANKLE LEFT 3 VIEWSo n 07-09-2023 XR ORTHO ANKLE LEFT 3 VIEWS 3 views of the left ankle and 2 views of the foot reviewed today AP MO and lateral of the foot and AP ankle mortise of the ankle. Persistent visualization of nondisplaced posterior malleolus fracture noted. Ankle mortise is congruent this without any joint space narrowing or widening. Tib-fib overlap is appropriate. Dictated by: SINCERE CORMIER on SatJul 11, 2023 7:59:16 AM EST Transcribed by: SINCERE CORMIER on SatJul 11, 2023 7:59:16 AM EST Finalized by: SINCERE CORMIER on SatJul 11, 2023 7:59:16 AM EST Normal [facility] Comment on above: Order Comment: Injur y/Trauma or Illness?:Injury/Trauma How long have you had these symptoms (acute/chronic)?:Acute Reason for exam?:Left ankle pain History of cancer?:Unknown Surgeries, chemotherapy, or radiation?:Unknown Type of Exam?:Initial Mechanism of injury?:Left ankle pain XR ORTHO FOOT 2 VIEWS LEFTon 07-09-2023 XR ORTHO FOOT 2 VIEWS LEFT 3 views of the left ankle and 2 views of the foot reviewed today AP MO and lateral of the foot and AP ankle mortise of the ankle. Persistent visualization of nondisplaced posterior malleolus fracture noted. Ankle mortise is congruent this without any joint space narrowing or widening. Tib-fib overlap is appropriate. Dictated by: SINCERE CORMIER on SatJul 11, 2023 7:59:25 AM EST Transcribed by: SINCERE CORMIER on SatJul 11, 2023 7:59:25 AM EST Finalized by: SINCERE CORMIER on SatJul 11, 2023 7:59:25 AM EST Normal [facility] Comment on above: Order Comment: Injur y/Trauma or Illness?:Injury/Trauma How long have you had these symptoms (acute/chronic)?:Acute Reason for exam?:Left foot pain History of cancer?:Unknown Surgeries, chemotherapy, or radiation?:Unknown Type of Exam?:Initial Mechanism of injury?:Left foot pain XR ANKLE LEFT 3+ VIEWS (GILLES DARD)on 07-04-2023 XR ANKLE LEFT 3+ VIEWS (STANDARD) EXAMINATION: XR FOOT LEFT 3+ VIEWS (STANDARD); XR ANKLE LEFT 3+ VIEWS (STANDARD) 07/04/2023 8:04 am HISTORY: ORDERING SYSTEM PROVIDED HISTORY: fall, TECHNOLOGIST PROVIDED HISTORY: Injury/Trauma Reason for exam: LT FOOT/ ANKLE PAIN Cancer History: u Surgery, RadiationHistory: u Encounter Type: Initial Mechanism of injury: FELL ORDERING SYSTEM PROVIDED DIAGNOSIS CODES: COMPARISON: None FINDINGS: There is an acute, nondisplaced posterior malleolus fracture without radiographic evidence of significant cortical step-off of the posterior tibial plafond. No other acute displaced fracture identified. The ankle mortise appears intact. The talar dome is intact. The Lisfranc joint is congruent on this nonweightbearing study. The midfoot is congruent. Probable posttraumatic subcutaneous edema about the lower extremity. IMPRESSION: Nondisplaced posterior malleolus fracture Workstation ID: [id number] Dictated by: VICTORIANO WHITE on SatJul 04, 2023 8:28:39 AM EDT Transcribed by: VICTORIANO WHITE on SatJul 04, 2023 8:28:39 AM EDT Finalized by: VICTORIANO WHITE on SatJul 04, 2023 8:28:39 AM EDT [facility] Comment on above: Order Comment: Injur y/Trauma or Illness?:Injury/Trauma How long have you had these symptoms (acute/chronic)?:Acute Reason for exam?:LT FOOT/ ANKLE PAIN History of cancer?:u Surgeries, chemotherapy, or radiation?:u Type of Exam?:Initial Mechanism of injury?:FELL DOWN STEPS XR FOOT LEFT 3+ VIEWS (STAND JUSTIN)on 07-04-2023 XR FOOT LEFT 3+ VIEWS (STANDARD) EXAMINATION: XR FOOT LEFT 3+ VIEWS (STANDARD); XR ANKLE LEFT 3+ VIEWS (STANDARD) 07/04/2023 8:04 am HISTORY: ORDERING SYSTEM PROVIDED HISTORY: fall, TECHNOLOGIST PROVIDED HISTORY: Injury/Trauma Reason for exam: LT FOOT/ ANKLE PAIN Cancer History: u Surgery, RadiationHistory: u Encounter Type: Initial Mechanism of injury: FELL ORDERING SYSTEM PROVIDED DIAGNOSIS CODES: COMPARISON: None FINDINGS: There is an acute, nondisplaced posterior malleolus fracture without radiographic evidence of significant cortical step-off of the posterior tibial plafond. No other acute displaced fracture identified. The ankle mortise appears intact. The talar dome is intact. The Lisfranc joint is congruent on this nonweightbearing study. The midfoot is congruent. Probable posttraumatic subcutaneous edema about the lower extremity. IMPRESSION: Nondisplaced posterior malleolus fracture Workstation ID: [id number] Dictated by: VICTORIANO WHITE on SatJul 04, 2023 8:28:39 AM EDT Transcribed by: VICTORIANO WHITE on SatJul 04, 2023 8:28:39 AM EDT Finalized by: VICTORIANO WHITE on SatJul 04, 2023 8:28:39 AM EDT Normal [facility] Comment on above: Order Comment: Injur y/Trauma or Illness?:Injury/Trauma fell down steps How long have you had these symptoms (acute/chronic)?:Acute Reason for exam?:LT FOOT/ ANKLE PAIN History of cancer?:u Surgeries, chemotherapy, or radiation?:u Type of Exam?:Initial Mechanism of injury?:FELL XR CHEST PA/APon 05-29-2023 XR CHEST PA/AP EXAMINATION: XR CHEST PA/AP HISTORY: SOBInjury/Trauma or Illness?:Illness/Other How long have you had these symptoms (acute/chronic)?:Acute COMPARISON: 2009 chest x-ray TECHNIQUE: One view FINDINGS: There is a normal cardiac and mediastinal contour. The pulmonary vascular pattern is normal. The lungs are clear and the pleural margins are sharp. There are no significant skeletal abnormalities. IMPRESSION: NO ACUTE RADIOGRAPHIC FINDINGS Workstation ID: [id number] Dictated by: SIVAKUMAR RITCHIE on SatMay 29, 2023 9:38:19 AM EDT Transcribed by: SIVAKUMAR RITCHIE on SatMay 29, 2023 9:38:19 AM EDT Finalized by: SIVAKUMAR RITCHIE on SatMay 29, 2023 9:38:19 AM EDT Normal [facility] Comment on above: Order Comment: Injur y/Trauma or Illness?:Illness/Other How long have you had these symptoms (acute/chronic)?:Acute Reason for exam?:sob History of cancer?:u Surgeries, chemotherapy, or radiation?:u Type of Exam?:Initial Additional signs and symptoms?:sob B12 FOLATEon 12-18-2022 Cobalamin (Vitamin B12) [Mass/Vol] pg/mL High 180-914 [facility] Comment on above: Performed By: #### B 12F, FX #### [place] [address] FOLATE >23.6 Normal >5.9 [facility] Comment on above: Performed By: #### B 12F, FX #### Testing performed at [place] [id number] CBCon 12-18-2022 Basophils/100 WBC (Bld) 0 % Normal 0.0-2.0 [facility] Comment on above: Performed By: #### A CBC, FX, CMPF, MG #### Testing performed at [address] [address] DTYPE AUTO DIFF Normal [facility] Comment on above: Result Comment: AUTO DIFF RESULTS VERIFIED BY SCAN Performed By: #### A CBC, FX, CMPF, MG #### Testing performed at [address] [address] Eosinophils/100 WBC (Bld) 3 % Normal 0.0-11.0 [facility] Comment on above: Performed By: #### A CBC, FX, CMPF, MG #### Testing performed at [address] [address] Lymphocytes/100 WBC (Bld) 29 % Normal 20.0-55.0 [facility] Comment on above: Performed By: #### A CBC, FX, CMPF, MG #### Testing performed at [address] [address] Monocytes/100 WBC (Bld) 5 % Normal 0.0-10.0 A [facility] Comment on above: Performed By: #### A CBC, FX, CMPF, MG #### Testing performed at [address] [address] Neutrophils/100 WBC (Bld) 63 % Normal 37.0-75.0 [facility] Comment on above: Performed By: #### A CBC, FX, CMPF, MG #### Testing performed at [address] [address] PLATELET COMMENT GIANT PLTS Normal [facility] Comment on above: Result Comment: DECR EASED Performed By: #### A CBC, FX, CMPF, MG #### Testing performed at [address] [address] RBC morphology finding Nom (Bld) NORMAL Normal [facility] Comment on above: Performed By: #### A CBC, FX, CMPF, MG #### Testing performed at [address] [address] Erythrocyte distribution width (RBC) [Ratio] 15.4 % High 11.5-14.5 [facility] Comment on above: Performed By: #### A CBC, FX, CMPF, MG #### Testing performed at [address] [address] Hematocrit (Bld) [Volume fraction] 40.7 % Normal 36.0-48.0 [facility] Comment on above: Performed By: #### A CBC, FX, CMPF, MG #### Testing performed at [address] [address] Hemoglobin (Bld) [Mass/Vol] 13.2 g/dL Normal 12.0-16.0 [facility] Comment on above: Performed By: #### A CBC, FX, CMPF, MG #### Testing performed at [address] [address] MCH (RBC) [Entitic mass] 28.4 pg Normal 26.0-35.0 [facility] Comment on above: Performed By: #### A CBC, FX, CMPF, MG #### Testing performed at [address] [address] MCHC (RBC) [Mass/Vol] 32.6 g/dL Normal 27.0-37.0 [facility] Comment on above: Performed By: #### A CBC, FX, CMPF, MG #### Testing performed at [address] [address] MCV (RBC) [Entitic vol] 87.4 fL Normal 80.0-100.0 [facility] Comment on above: Performed By: #### A CBC, FX, CMPF, MG #### Testing performed at [address] [address] Platelet mean volume (Bld) [Entitic vol] 14.9 fL High 7.4-11.0 [facility] Comment on above: Performed By: #### A CBC, FX, CMPF, MG #### Testing performed at [address] [address] Platelets (Bld) [#/Vol] 85 10*3/uL Low 130-400 A [facility] Comment on above: Performed By: #### A CBC, FX, CMPF, MG #### Testing performed at [address] [address] RBC (Bld) [#/Vol] 4.66 10*6/uL Normal 4.0-5.4 [facility] Comment on above: Performed By: #### A CBC, FX, CMPF, MG #### Testing performed at [address] [address] WBC (Bld) [#/Vol] 4.6 10*3/uL Normal 3.6-11.0 [facility] Comment on above: Performed By: #### A CBC, FX, CMPF, MG #### Testing performed at [address] [address] CMP FASTINGon 12-18-2022 A:G RATIO 1.4 RATIO Normal 1.3-2.2 [facility] Comment on above: Performed By: #### A CBC, FX, CMPF, MG #### Testing performed at [address] [address] ALBUMIN 4.4 G/dl Normal 3.5-5.0 [facility] Comment on above: Performed By: #### A CBC, FX, CMPF, MG #### Testing performed at [address] [address] ALP [Catalytic activity/Vol] 60 U/L Normal 38-126 [facility] Comment on above: Performed By: #### A CBC, FX, CMPF, MG #### Testing performed at [address] [address] ALT [Catalytic activity/Vol] 17 U/L Normal 14-54 [facility] Comment on above: Performed By: #### A CBC, FX, CMPF, MG #### Testing performed at [address] [address] AST [Catalytic activity/Vol] 16 U/L Normal 15-41 [facility] Comment on above: Performed By: #### A CBC, FX, CMPF, MG #### Testing performed at [address] [address] Bilirubin [Mass/Vol] 0.7 mg/dL Normal 0.2-1.2 [facility] Comment on above: Performed By: #### A CBC, FX, CMPF, MG #### Testing performed at [address] [address] Calcium [Mass/Vol] 9.3 mg/dL Normal 8.4-10.2 [facility] Comment on above: Performed By: #### A CBC, FX, CMPF, MG #### Testing performed at [address] [address] Chloride [Moles/Vol] 109 mmol/L High 98-107 [facility] Comment on above: Performed By: #### A CBC, FX, CMPF, MG #### Testing performed at [address] [address] CO2 [Moles/Vol] 23 mmol/L Normal 22-30 [facility] Comment on above: Performed By: #### A CBC, FX, CMPF, MG #### Testing performed at [place] [id number] Creatinine [Mass/Vol] 0.91 mg/dL Normal 0.52-1.04 [facility] Comment on above: Performed By: #### A CBC, FX, CMPF, MG #### Testing performed at [place] [id number] EST. GFR, 95 ml/min/1.73sq.m [facility] Comment on above: Performed By: #### A CBC, FX, CMPF, MG #### Testing performed at [place] [id number] EST. GFR,Non 79 ml/min/1.73sq.m [facility] Comment on above: Performed By: #### A CBC, FX, CMPF, MG #### [place] [address] GFR Information Average GFR for 20-2 9 years old = 116. Normal [facility] Comment on above: Result Comment: Cruise Counselor brendan Kidney disease, GFR = <60. Kidney failure, GFR = <15. The GFR estimate is not adjusted for extreme body surface area or acute process, nor has it been validated for women or ethnic groups other than and . Performed By: #### A CBC, FX, CMPF, MG #### Testing performed at [place] [id number] Glucose [Mass/Vol] 96 mg/dL Normal 70-100 [facility] Comment on above: Result Comment: NORMAL <100 mg/dL PREDIABETES 101-126 mg/dL DIABETES 126 mg/dL or higher Performed By: #### A CBC, FX, CMPF, MG #### [place] [address] Potassium [Moles/Vol] 4.0 mmol/L Normal 3.5-5.1 [facility] Comment on above: Performed By: #### A CBC, FX, CMPF, MG #### Testing performed at [address] [address] Protein [Mass/Vol] 7.5 g/dL Normal 6.3-8.2 [facility] Comment on above: Performed By: #### A CBC, FX, CMPF, MG #### Testing performed at [address] [address] Sodium [Moles/Vol] 138 mmol/L Normal 136-145 [facility] Comment on above: Performed By: #### A CBC, FX, CMPF, MG #### Testing performed at [address] [address] Urea nitrogen [Mass/Vol] 13 mg/dL Normal 7-20 [facility] Comment on above: Performed By: #### A CBC, FX, CMPF, MG #### Testing performed at [address] [address] FAX REQUESTon 12-18-2022 FAX TO [phone] [facility] Comment on above: Performed By: #### A CBC, FX, CMPF, MG #### Testing performed at [address] [address] FAX TO [phone] [facility] Comment on above: Performed By: #### F RTN, FX, FE2 #### Testing performed at [address] [address] FAX TO [phone] [facility] Comment on above: Performed By: #### F X #### Testing performed at [address] [address] FAX TO [phone] [facility] Comment on above: Performed By: #### B 12F, FX #### Testing performed at [address] [address] FERRITINon 12-18-2022 Ferritin [Mass/Vol] 35 ng/mL Normal 11.0-306.8 [facility] Comment on above: Result Comment: SHANI ENOPAUSAL FEMALES 6.9-282.5 POSTMENOPAUSAL FEMALES 14.0-233.1 Performed By: #### F RTN, FX, FE2 #### Testing performed at [address] [address] IRONon 12-18-2022 Iron [Mass/Vol] 83 ug/dL Normal 37-170 [facility] Comment on above: Performed By: #### F RTN, FX, FE2 #### Testing performed at [address] [address] MAGNESIUMon 12-18-2022 Magnesium [Mass/Vol] 2.1 mg/dL Normal 1.6-2.3 [facility] Comment on above: Performed By: #### A CBC, FX, CMPF, MG #### Testing performed at [address] [address] Basic metabolic 1998 panelon 11-22-2022 Anion gap [Moles/Vol] 11 mmol/L 3 - 13 mmol/L [facility] Calcium [Mass/Vol] 9.0 mg/dL 8.4 - 10. 4 mg/dL [facility] Chloride [Moles/Vol] 108 mmol/L High 98 - 10 7 mmol/L [facility] CO2 [Moles/Vol] 19 mmol/L Low 22 - 30 mmol/L [facility] Creatinine [Mass/Vol] 0.92 mg/dL 0.52 - 1.04 mg/dL [facility] GFR/1.73 sq M.predicted MDRD (S/P/Bld) [Vol rate/Area] 87.7 mL/min/{1.73_m2} - PINF [facility] Comment on above: Calculation based on the Chronic Kidney Disease Epidemiology Collaboration (CKD-EPI) equation refit without adjustment for race Glucose [Mass/Vol] 123 mg/dL High 70 - 100 mg/dL [facility] Interpretation and review of laboratory results Abnormal [facility] Potassium [Moles/Vol] 4.2 mmol/L 3.5 - 5.1 mmol/L [facility] Sodium [Moles/Vol] 138 mmol/L 135 - 145 mmol/L [facility] Urea nitrogen [Mass/Vol] 9 mg/dL 7 - 17 mg/dL [facility] CBC panel Auto (Bld)Ordered By: Jeff Byrne on 11-22-2022 Erythrocyte distribution width (RBC) [Ratio] 15.0 % High 11.5 - 14.5 % [facility] Hematocrit (Bld) [Volume fraction] 38.5 % 35.0 - 47.0 % [facility] Hemoglobin (Bld) [Mass/Vol] 12.8 g/dL 11.7 - 16.0 g/dL [facility] Interpretation and review of laboratory results Abnormal [facility] MCH (RBC) [Entitic mass] 28.4 pg 26. 0 - 34.0 pg [facility] MCHC (RBC) [Mass/Vol] 33.2 % 32.0 - 36.0 % [facility] MCV (RBC) [Entitic vol] 85.4 fL 80.0 - 98.0 fL [facility] Platelet mean volume (Bld) [Entitic vol] 13.6 fL High 7.4 - 12.4 fL [facility] Platelets (Bld) [#/Vol] 103 10*3/uL Low 140 - 440 10*3/uL [facility] RBC (Bld) [#/Vol] 4.51 10*6/uL 3.8 - 5.20 10*6/uL [facility] WBC (Bld) [#/Vol] 6.4 10*3/uL 3.6 - 10.7 10*3/uL [facility] PT Coag (Bld) [Time]on 11-22 INR Coag (PPP) [Relative time] 1.2 {INR} High 0.9 - 1.1 [facility] Comment on above: Recommended Anticoag ulant Therapy: SEE BELOW ----- INR of 2.0 - 3.0 : - Prophylaxis of Venous Thrombosis (high-risk surgery) - Treatment of Venous Thrombosis - Treatment of Pulmonary Embolism (Includes tissue heart valves, Acute Myocardial Infarction to prevent systemic embolism, Valvular Heart Disease, and Atrial Fibrillation) ----- INR of 2.5 - 3.5 : - Mechanical Prosthetic Valves (high risk) - If oral anticoagulant therapy is used to prevent Myocardial Infarction Interpretation and review of laboratory results Abnormal [facility] Protime-INRon 11-22-2022 PT Coag (Bld) [Time] 12.4 s High 9.0 - 1 2.0 s [facility] Tissue examOrdered By: Nani Walden on 11-22-2022 Case Report Surgical Pathology Case: [id number] Authorizing Provider: Rakesh Salazar MD Collected: 11/21/2022 0952 Ordering Location: [facility] OR Received: 11/21/2022 1139 Pathologist: Jessie Walden MD Specimen: Liver, LIVER BIOPSY [employer] Phone: Clinical Information r2nlfBJvJEZwxZSsKQA wNlx gsjEhFCOnhACcA9FdusewVU xgLW0qUT9rdLyjvXVtxEUoK PQkElRyr0hve012nSIna4kq IKQKCZtaXHMPUDw4sGvmJ72 qb6U9EljqA1zvDJYbYPhdNE CwOBvttDRyAAh4UWWlhKUlk lCgJqDgKYOidXZjgCD7NENo GQ9gaoysCDdeWOloYSFuogB 4XUNlbNRgY2LcHPNaVS6ypb qqNUI8FBbgKNFpJDU8VbUjI FTzn3Npiyf1OvFelZMqEVqe bGMhpHkhyV9dVfMsOZzlEtS tEN3lAcarYLzpPIKprsKcZD 5nIKGejAovFCCwYPMrAVD5T 2VzcyBjYWxvcmllcyAoSEND HCSzWSP2NhGfSXvfEXV5 [employer] Phone: Disclaimer v8llwTPmESGfkNZeFaJk MDA zKCHjb1bmKPNfyHSlUiZrAh NcZnRuYmpcdWMxXGRlZmYwe 9szj124gDGch2zhBJKuEtJ7 eUBsLMVxwKoewei4iItaVgD fTXBia9aiwvPxPjXgDKDdEW UgIRGaoLduqwc5gJ43CKYsm J2iuRYvXVslswRlVkJ8MUrl LHHpTbX5QEBykXLeWLBuO4n sLEVfCVCcQ1OkHT2nQAZcPj x2ATCrCHP1EYGfLNGvP8ShQ I1jEOLxkTCkZWx0o1kudRcj ASEfIXE0s3nkAVvicwZtRU2 ghr0tySp2z6hsbiZrLTJxTU CglZZBJDCwE8YgyMvqCl2lf Ea7vMcfAznmRPO1Wwo7LF5t re45akx2oMkjRRKsbisrLmX 6QNbzZPHfiawpOCb2BOreKQ EejJX2OXIdkYNfZ3TwSOMzW E8ovgj4WHA7DHhuJEDzWgM6 KCRzcSVlRZGcaBsvNRtnr52 1JDY8QmRyJQ1bM3Qcd9O9gL 9maXRcZGVmdGFiNzIwXGZvc v9kxDLaIFjhb3BeKCS9xeJ4 wAIspFWkLTUpAN11Bogcl6Z gKjrcDIT5MPGjseWxz8Ktn2 ynMcNickXtJ7htA5HgFXQkQ FByLKQlDcGmzaPsj6Yys0Ke iDAibQv9m8zqJQNgETZyjYa hu8qzZIX5LMElD5E5eMTgi9 ohZYjpVVZqvKI5teW0JGGul EWiK8FzmU6oRQRaUM7rwzw3 c3rzEYB9ZLbvWQQwEjP9jdV 7HKPxnIAhMFNesQwbJSvwz8 27VQM6WwStELPew5ScH1Bqo RfrN87wgQhyI84gPTRrrNpn yF0nlCzsfW2kPiDzInFmLUw orAjhgNZsyxeuOJxenlS7WY dfyjhvUDKcNSrdX9ggWnLaC LYnpPdtQSuxk0DtSJVbRMBe MzfageO0VXSpFLMnukAloeG pMRMhhDyolfNaJvD9fOriMH Yjx3IirF4yeJXsRADdeUxhZ KRnKEIhUcOufX77qm5acYU2 d0CjQE8gd0RugKIerbSwmOQ wfTVfKOV6RKachl3jUHkni4 BfvUPowADunTW7TIGid4PgT rOfhwTgtNRovzDzAG6xJSDy gVWxpjRtQAK5IRMjLUWFSnJ oYJOon2QgSX4gKQBcrWapUA FnwE6oz6VaAJVrb08nMOFfN SBGREEgaGFzIGRldGVybWlu ZWQgdGhhdCBzdWNoIGNsZWF sNG2eRINuroZbvTDva1NnkZ KbcsFhu0WsyjQeHEKtQRO7N xQNdJYtVNN1OUW3niXjeoUg iATvDSOfl9IdP7ehmsydSIk guNPplE4fMBFdSN0rMFHoa9 RrWGYtg9ScRrNoyfXvZHKbZ YXoXGElnL90UKY5rPzkfLyq ngRxTD6sCBWlfsXcHLPfEJJ nuO4tIJltaaKfOMXgiiQ8e0 E2SCpfCWBdonEqTsqyIHD3x qXzPPDcs4LnQXqsZ5knS06e xJzpzTy2jMK5TDQ4mV1uKKR uZGVyIHRoZSBDbGluaWNhbC IGGYWsujS8w1S1ZMdjdOCzs wSeFK87NQKyYQ7ncNPgwIRx m1UdVRe7SM7vKLTqFViuNEE xXGZzMjJcbGFuZzEwMzNcaG ljaFxmMVxkYmNoXGYxXGxvY 0zxDiSvPeVpGrdrELY2 [facility] [employer] Work Phone: [employer] Description z5aulGPkBJGnbESkFTCr Nlx ywdRxOJKvmXUqZ1LsyytqYB qzAB8xDL5acHlqsUQlzUPkC MVjPhYqr0iro088iNOnz8wh LGKHJSqyKYOOQBw5lKtjR60 hx5J9QdnnV62dnYFmIXS8GP XgAPXchDByWYDkHHL9OQUvj QTlL8jiVKAzST5egusyYIii RJgeWIUvaZL9OGIiuTPiJ5A gMENxASnqOALkejq6RhOwLw 9vdGVyeTcyMFxwYXJkXHBsY XvpLEUdOnEoFuHeNFi2OHKr bF0xPy3hcJOgjO0nfQFeJJi jUVSjlWc9KALeKmttoTN8Fm BpcyBhIHdlZGdlLXNoYXBlZ FMqTLtvMC80TZ3jJRTtFZ6r rz01azXfc5T6MIDmd9Y5MYW jHCIwvXAlmkwpVR45EAjyAI 24XSloUJ5tQDSbYbMrJ3Owl Xq0sJCkPLqsZF8yMXVpSETu WQQ8JC9qzOHdcL== [employer] Work Phone: Pathologist Interpretation Location [facility], [address] [place] [id number], CLIA: [id number]; Joint Commission: [id number] [id number]; CAP: [id number] [facility] [employer] Phone: Pathology report final diagnosis Narrative e6uegHMcWCDziUVfBJBhLne lyoTgMGFeuLSxA6CznheuTO eaFI8sSS0zjGphzQJcoOVhR FXiYzJmc8uym679qJKlj6hx NAOXBEhiPQDPDKy9mZkcN31 qd8O8YrlpT51zjAJfZKB1HM LzPFMutIBeGKJqFET0VQOdy RYxV2cfAIMjFA4smrxdDFuv RRruHSXohOS0IZRidFKsD1P zZAFdRKqqIBRpbwa5WtXcYm 9vdGVyeTcyMFxwYXJkXHBsY WluXGZzMjAgTElWRVIsIFdF CAdWXRXDY1BHPHFxCKZQWsQ NQVJLQUJMRSBMSVZFUiBQQV GQJeBDDY1PMkeqUQAijXXdR VFiqL1jijK5ITFtU7Vdn11g FPFtcO5ds0NlDCKvIJClWPa udGFjdCBsaXZlciBhcmNoaX SyT3K5rxHpz7u3gFSxijHcc lkfHJ7vDQSyIlPpiQOicW2d zJNkIQWpfPgxm76wtwmdMFE aLU9naqU1iR8fXPMwt2B7iQ UbHYByzPv8qGU6RIAsyvDTQ Rcxa9L8O7IwbMigwEwhFD0e QCtsWYHwkuSyfTK5xvGalVB dU01ibSBwixWbxUhjfd7wcW GjTPU0xqEbfJJsEWDjl2m3m B05dFUibaqxa0jmgiamwPPi raPmpP0azHHwxAS3p2W3AEd uZmlsdHJhdGUuIFNwZWNpYW yjt9PckP5bEApbwt9vCQUiL UM8zwhiwHDolIYhNHYjDFNw DElguGv5ALDxn6VfqY7ntvX ur5MlADnfk31av6PaadBvBJ QatcWaFxhzbt2yxCCoBASwy 7YnQ1VcoeKyyS6fzRErxA== [employer] Work Phone: [employer] Work Phone: XR Abdomen and RF Gastrointe stinal tract upper W contrast Lyla 11-22-2022 Left basilar atelectasis. Post-op changes consistent with gastric bypass surgery. No sign of extravasation or obstruction. Report Dictated on Electronically Signed By: Darrell Foley Electronically Signed Date/Time: 11/22/2022 12:58 PM T [facility] Patient Name: JAYA TAMAYO RD : 1995 Exam Date/Time: 11/22/2022 07:50 Procedure: FL UPPER GI WITH KUB Ordering Provider: SALAZAR TYLER Reason For Exam: s/p LRYGB GASTROGRAFIN UPPER GI SERIES CLINICAL INDICATION: S/P gastric bypass, postop, day one. Evaluate for leak. COMPARISON: 04/10/2022 TECHNIQUE: Gastrografin was administered per ordering physician request. FLUOROSCOPY DOSE: Ka,r= 94.0 mGy FINDINGS: Gastrografin was administered orally to the patient in the upright position. The esophagus is of normal course and caliber with no evidence of perforation or extravasation. The gastrojejunostomy is patent with no sign of extravasation or obstruction. The contrast empties readily from the gastric pouch into the jejunum. The jejunal jejunostomy is identified and shows free flow of contrast beyond the metallic clips that identify the anastomosis. There is no sign of obstruction. There is left basilar atelectasis. [facility] Darrell Foley MD - 11/22/2022 Patient Name: JAYA HOPSON : 1995 Exam Date/Time: 11/22/2022 07:50 Procedure: FL UPPER GI WITH KUB Ordering Provider: SALAZAR TYLER Reason For Exam: s/p LRYGB GASTROGRAFIN UPPER GI SERIES CLINICAL INDICATION: S/P gastric bypass, postop, day one. Evaluate for leak. COMPARISON: 04/10/2022 TECHNIQUE: Gastrografin was administered per ordering physician request. FLUOROSCOPY DOSE: Ka,r= 94.0 mGy FINDINGS: Gastrografin was administered orally to the patient in the upright position. The esophagus is of normal course and caliber with no evidence of perforation or extravasation. The gastrojejunostomy is patent with no sign of extravasation or obstruction. The contrast empties readily from the gastric pouch into the jejunum. The jejunal jejunostomy is identified and shows free flow of contrast beyond the metallic clips that identify the anastomosis. There is no sign of obstruction. There is left basilar atelectasis. IMPRESSION: Left basilar atelectasis. Post-op changes consistent with gastric bypass surgery. No sign of extravasation or obstruction. Report Dictated on Electronically Signed By: Darrell Foley Electronically Signed Date/Time: 11/22/2022 12:58 PM EDT [facility] Radiology Study observation (narrative) [facility] XR Abdomen and RF Gastrointe stinal tract upper W contrast POOrdered By: Darrell Foley on 11-22-2022 [facility] Work Phone: Airwayon 11-21-2022 ZACH Arita 11/21/2022 9:00 AM Airway Date/Time: 11/21/2022 8:41 AM Urgency: scheduled General Information and Staff Patient location during procedure: Procedural Resident/FILAMENT MAKER: David Cason CRNA Performed: FILAMENT MAKER Indications and Patient Condition Indications for airway management: anesthesia Sedation level: Asleep and RSI Preoxygenated: yes Patient position: ramp MILS maintained throughout Mask difficulty assessment: 0 - not attempted Final Airway Details Final airway type: endotracheal airway Successful airway: ETT Cuffed: yes Successful intubation technique: direct laryngoscopy Facilitating devices/methods: intubating stylet Endotracheal tube insertion site: oral Blade: Ede Blade size: #3 ETT size (mm): 7.0 Cormack-Lehane Classification: grade I - full view of glottis Placement verified by: chest auscultation and capnometry Measured from: lips ETT to lips (cm): 22 Number of attempts at approach: 1 [facility] Basic metabolic 1998 panelon 11-21-2022 Anion gap [Moles/Vol] 12 mmol/L 3 - 13 mmol/L [facility] Calcium [Mass/Vol] 9.0 mg/dL 8.4 - 10. 4 mg/dL [facility] Chloride [Moles/Vol] 108 mmol/L High 98 - 10 7 mmol/L [facility] CO2 [Moles/Vol] 18 mmol/L Low 22 - 30 mmol/L [facility] Creatinine [Mass/Vol] 0.88 mg/dL 0.52 - 1.04 mg/dL [facility] GFR/1.73 sq M.predicted MDRD (S/P/Bld) [Vol rate/Area] - PINF [facility] Comment on above: Calculation based on the Chronic Kidney Disease Epidemiology Collaboration (CKD-EPI) equation refit without adjustment for race Glucose [Mass/Vol] 146 mg/dL High 70 - 100 mg/dL [facility] Interpretation and review of laboratory results Abnormal [facility] Potassium [Moles/Vol] 3.9 mmol/L 3.5 - 5.1 mmol/L [facility] Sodium [Moles/Vol] 137 mmol/L 135 - 145 mmol/L [facility] Urea nitrogen [Mass/Vol] 12 mg/dL 7 - 17 mg/dL [facility] HCG ( test) Ql (U)o n 11-21-2022 Beta HCG ( test) Ql (U) [id number] [facility] Interpretation and review of laboratory results Normal [facility] NEGATIVE QC Pass [facility] POSITIVE QC Pass [facility] Preg Test, Ur Negative Negative [facility] Hemoglobin (Bld) [Mass/Vol]o n 11-21-2022 Hematocrit (Bld) [Volume fraction] 41.1 % 35.0 - 47.0 % [facility] Interpretation and review of laboratory results Normal [facility] Hemoglobin and hematocrit, b loodon 11-21-2022 Hemoglobin (Bld) [Mass/Vol] 13.6 g/dL 11.7 - 16.0 g/dL [facility] Peripheral Blockon 3 DEE Lockwood CRNA 11/21/2022 9:41 AM Peripheral Block Time Out: 11/21/2022 8:30 AM Patient location during procedure: Procedural Start time: 11/21/2022 8:31 AM End time: 11/21/2022 8:35 AM Reason for block: at surgeon's request and post-op pain management Staffing Performed: FILAMENT MAKER Resident/FILAMENT MAKER: DEE Soler Jr., CRNA Preanesthetic Checklist Completed: patient identified, IV checked, site marked, risks and benefits discussed, surgical consent, monitors and equipment checked, pre-op evaluation and timeout performed Region: [place] Primary: TAP (Bupivacaine 0.375%/ Epi 1:200,000/ Dex 0.1mg/mL 40ml divided evenly bilateral) Secondary: Upper rectus (Bupivacaine 0.375%/ Epi 1:200,000/ Dex 0.1mg/mL 20ml divided evenly bilateral) Peripheral Block Patient position: supine Prep: ChloraPrep Patient monitoring: heart rate, teletypesetter monitor, continuous pulse ox and continuous capnometry O2: ETT/LMA Laterality: bilateral Injection technique: single-shot Guidance: ultrasound guided -image retained in chart, tip of the needle identified by ultraound during injection. Needle Needle: 21G X 110 mm Additional Notes 11/21/2022 8:31 AM Assessment Injection assessment: negative aspiration for heme, no paresthesia on injection and incremental injection Heart rate change: no Slow fractionated injection: yes Required Documentation: Relevant anatomy identified (Nerves, Vessels, Muscles), Negative for blood on aspiration, Local anesthetic injected incrementally with intermittent aspiration every 5 mL, Normal resistance with injection, No EKG changes noted, No symptoms of toxicity, Local anesthetic spread visualized around nerves or plane. and Local anesthetic injected without difficultyMedications dexAMETHasone-bupivacai ne-epinephrine (TAP) syringe - Injection 60 mL - 11/21/2022 8:31:00 AM Symcat ECG 12 leadOrdered By: Shanta Conti on 11-08-2022 Heart rate 64 /min bpm [employer] Work Phone: P [place] 22 degrees [employer] Work Phone: CA Interval 148 ms [employer] Work Phone: QRS [place] 5 degrees [employer] Work Phone: QRSD Interval 76 ms [employer] Work Phone: QT Interval 409 ms [employer] Work Phone: QTC Interval 421 ms [employer] Work Phone: T Wave [place] 45 degrees [employer] Work Phone: [employer] Work Phone: ECG 12 leadon 11-08-2022 Sinus rhythm Electronically Signed On 11-08-2022 21:07:44 EST by Shanta Ocasio MD - 11/08/2022 IMPRESSION: Sinus rhythm Electronically Signed On 11-08-2022 21:07:44 EST by Shanta Gallito [employer] XR Chest 2 Viewson 3 No focal consolidati on or pulmonary edema. Report Dictated on Electronically Signed By: Jeffery Kapoor Electronically Signed Date/Time: 11/07/2022 1:09 AM [facility] Patient Name: BELKIS JAYA JEFFERS : 1995 Exam Date/Time: 11/06/2022 13:43 Procedure: XR CHEST 2 VIEWS Ordering Provider: TORREZ LEISA Reason For Exam: PREOPERATIVE EXAMINATION CHEST: CLINICAL INDICATION: PREOPERATIVE EXAMINATION TECHNIQUE: PA and Lateral COMPARISON: None FINDINGS: No focal consolidation or pulmonary edema. No pleural effusions or pneumothorax. The cardiac and mediastinal silhouettes are normal. The osseous structures are unremarkable. [facility] Jeffery Kapoor MD - 11/07/2022 Patient Name: JAYA HOPSON : 1995 Exam Date/Time: 11/06/2022 13:43 Procedure: XR CHEST 2 VIEWS Ordering Provider: TORREZ LEISA Reason For Exam: PREOPERATIVE EXAMINATION CHEST: CLINICAL INDICATION: PREOPERATIVE EXAMINATION TECHNIQUE: PA and Lateral COMPARISON: None FINDINGS: No focal consolidation or pulmonary edema. No pleural effusions or pneumothorax. The cardiac and mediastinal silhouettes are normal. The osseous structures are unremarkable. IMPRESSION: No focal consolidation or pulmonary edema. Report Dictated on Electronically Signed By: Jeffery Kapoor Electronically Signed Date/Time: 11/07/2022 1:09 AM EST [employer] XR Chest 2 ViewsOrdered By: Jeffery Kapoor on 11-07-2022 [facility] Work Phone: XR Chest 2 Viewson Radiology Study observation (narrative) [facility] alth HCG ( test) Ql (U)o n 08-02-2022 Internal Control [facility] Interpretation and review of laboratory results Normal [facility] POC , urineon 08-02 HCG ( test) Ql (U) Negative Negative [facility] RF UGI w/o KUB w/ or w/o Del ay Flmon 04-10-2022 RF UGI w/o KUB w/ or w/o Delay Flm Patient Name: JAYA HOPSON Fluoroscopy ACCESSION EXAM DATE/TIME PROCEDURE ORDERING PROVIDER [id number] 04/10/2022 11:04 EDT RF UGI w/o KUB and w/ or [id number] ALARCON w/o Delay Flm CPT code 62490 Reason For Exam (RF UGI w/o KUB and w/ or w/o Delay Flm) Heartburn Report AIR CONTRAST UGI SERIES CLINICAL INDICATIONS: Heartburn. COMPARISON: None. FLUOROSCOPY TIME: 1.16 minutes. FLUOROSCOPIC EXPOSURES: 48 TECHNIQUE: Biphasic exam was performed with barium and air. FINDINGS: Barium and air are administered. The esophagus is studied in the upright as well as the horizontal positions. The esophagus is normal in course and caliber. There is no hiatal hernia. No free gastroesophageal reflux is seen at this time. Barium flows freely from the esophagus into the stomach. The stomach and duodenum show normal mucosal pattern, with no discrete ulcer or mass. The visualized proximal jejunum is unremarkable. IMPRESSION: Unremarkable UGI series. Report Dictated on Final Dictated: 04/10/2022 1:20 pm Dictating Physician: MD FOLEY JOHN Signed Date and Time: 04/10/2022 1:23 pm Signed by: MD FOLEY JOHN Transcribed Date and Time: 04/10/2022 1:21 Normal [facility] US ABDOMEN COMPLETEon 2021 Patient Name: JAYA HOPSON Ultrasound ACCESSION EXAM DATE/TIME PROCEDURE ORDERING PROVIDER [id number] 04/10/2022 09:00 EDT US Abdomen Complete [id number] ALARCON CPT code 75855 Reason For Exam (US Abdomen Complete) Abdominal Pain Report ULTRASOUND ABDOMEN COMPLETE EXAM DATE AND TIME: 04/10/2022 9:00 AM EDT INDICATION: 27 years Female with abdominal pain COMPARISON: None TECHNIQUE: Complete ultrasound of abdomen FINDINGS: Pancreas: The visualized portions of the pancreatic head and body are unremarkable. The remainder of the pancreas is obscured by bowel gas Liver: Normal echogenicity, size and contours. No focal lesion identified. Gallbladder: Normal. Per the neurodiagnostic technologist, the sonographic Urena's sign was negative. Bile ducts: No intrahepatic and extrahepatic biliary dilatation Common bile duct: 2 mm Right kidney: Normal size measuring 11.6 cm. Normal parenchymal echogenicity without solid mass or hydronephrosis. Left kidney: Normal size measuring 11.4 cm. Normal parenchymal echogenicity without solid mass or hydronephrosis. Spleen: Normal size measuring 9.4 x 4.5 x 9.0 cm. Normal echogenicity without a lesion. Aorta and Inferior vena cava: Visualized portions are normal Ascites: None IMPRESSION: 1. Normal ultrasound of the abdomen. Report Dictated on --- Final --- Dictated: 04/10/2022 11:54 am Dictating Physician: MD SANTORO NICHOLAS Signed Date and Time: 04/10/2022 11:56 am Signed by: MD SANTORO NICHOLAS Transcribed Date and Time: 04/10/2022 11:54 [facility] David Santoro MD - 04/10/2022 Patient Name: JAYA HOPSON Ultrasound ACCESSION EXAM DATE/TIME PROCEDURE ORDERING PROVIDER [id number] 04/10/2022 09:00 EDT US Abdomen Complete [id number] -HEBERT CLAUDINE CPT code 55247 Reason For Exam (US Abdomen Complete) Abdominal Pain Report ULTRASOUND ABDOMEN COMPLETE EXAM DATE AND TIME: 04/10/2022 9:00 AM EDT INDICATION: 27 years Female with abdominal pain COMPARISON: None TECHNIQUE: Complete ultrasound of abdomen FINDINGS: Pancreas: The visualized portions of the pancreatic head and body are unremarkable. The remainder of the pancreas is obscured by bowel gas Liver: Normal echogenicity, size and contours. No focal lesion identified. Gallbladder: Normal. Per the neurodiagnostic technologist, the sonographic Urena's sign was negative. Bile ducts: No intrahepatic and extrahepatic biliary dilatation Common bile duct: 2 mm Right kidney: Normal size measuring 11.6 cm. Normal parenchymal echogenicity without solid mass or hydronephrosis. Left kidney: Normal size measuring 11.4 cm. Normal parenchymal echogenicity without solid mass or hydronephrosis. Spleen: Normal size measuring 9.4 x 4.5 x 9.0 cm. Normal echogenicity without a lesion. Aorta and Inferior vena cava: Visualized portions are normal Ascites: None IMPRESSION: 1. Normal ultrasound of the abdomen. Report Dictated on --- Final --- Dictated: 04/10/2022 11:54 am Dictating Physician: MD SANTORO NICHOLAS Signed Date and Time: 04/10/2022 11:56 am Signed by: MD SANTORO NICHOLAS Transcribed Date and Time: 04/10/2022 11:54 [facility] Work Phone: Radiology Study observation (narrative) [facility] Work Phone: US ABDOMEN COMPLETEOrdered B y: David Santoro on 04-10-2022 [facility] Work Phone: US Abdomen Completeon 2021 US Abdomen Complete Patient Name: JAYA TAMAYO RD Ultrasound ACCESSION EXAM DATE/TIME PROCEDURE ORDERING PROVIDER [id number] 04/10/2022 09:00 EDT US Abdomen Complete [id number] -CLAUDINE AMBROSIO CPT code 75449 Reason For Exam (US Abdomen Complete) Abdominal Pain Report ULTRASOUND ABDOMEN COMPLETE EXAM DATE AND TIME: 04/10/2022 9:00 AM EDT INDICATION: 27 years Female with abdominal pain COMPARISON: None TECHNIQUE: Complete ultrasound of abdomen FINDINGS: Pancreas: The visualized portions of the pancreatic head and body are unremarkable. The remainder of the pancreas is obscured by bowel gas Liver: Normal echogenicity, size and contours. No focal lesion identified. Gallbladder: Normal. Per the neurodiagnostic technologist, the sonographic Urena's sign was negative. Bile ducts: No intrahepatic and extrahepatic biliary dilatation Common bile duct: 2 mm Right kidney: Normal size measuring 11.6 cm. Normal parenchymal echogenicity without solid mass or hydronephrosis. Left kidney: Normal size measuring 11.4 cm. Normal parenchymal echogenicity without solid mass or hydronephrosis. Spleen: Normal size measuring 9.4 x 4.5 x 9.0 cm. Normal echogenicity without a lesion. Aorta and Inferior vena cava: Visualized portions are normal Ascites: None IMPRESSION: 1. Normal ultrasound of the abdomen. Report Dictated on Final Dictated: 04/10/2022 11:54 am Dictating Physician: MD SANTORO NICHOLAS Signed Date and Time: 04/10/2022 11:56 am Signed by: MD SANTORO NICHOLAS Transcribed Date and Time: 04/10/2022 11:54 Normal [facility] HM ENDOSCOPY REPORTon 2021 Ordered by an unspecified provider. [facility] [place] Surgical Pathologyon 022 Surgical Pathology [id number] [facility] PATHOLOGY AND LABORATORY MEDICINE [address] [place] [address] Fax - FINAL SURGICAL PATHOLOGY REPORT ___ NAME: JAYA HOPSON : 1995 27 Y F BILLING NO.: [id number] LOCATION: [facility] PROCEDURE 04/06/2022 DATE: SURGEON: RAKESH SALAZAR MD RECEIVED 04/06/2022 DATE: ATTENDING: RAKESH SALAZAR MD REPORT DATE: 04/10/2022 COPIES TO: ___ DIAGNOSIS: STOMACH, ANTRUM, BIOPSY - REACTIVE GASTROPATHY. Comment: H&E stain is negative for H. pylori. No significant active inflammation present. Negative for intestinal metaplasia or malignancy. CRH/CRH Signature> JESSIE WALDEN M.D. ___ CLINICAL INFORMATION: Heartburn SPECIMEN: GASTRIC BIOPSY ___ GROSS DESCRIPTION: Received in formalin, labeled stomach antrum, is an elongated segment of pink-horne soft tissue measuring 0.6 x 0.3 x 0.1 cm, submitted in one cassette. BSC/0RW Disclaimer: The following statement applies to all immunohistochemistry, in situ hybridization, molecular studies, and immunofluorescence testing. The use of one or more reagents in the above tests is regulated as an analyte specific reagent (ASR). These tests were developed and their performance characteristics determined by the clinical laboratories of [facility]. They have not been cleared by the US Food and Drug Administration (FDA). The FDA has determined that such clearance or approval is not necessary. All the above immunostains were performed on paraffin embedded tissue. Appropriate positive and negative controls (where applicable) were run in parallel with the patient's specimen; these controls showed expected staining pattern, with acceptable intensity of staining. Immunohistochemical assays have not been validated on decalcified tissues. Results should be interpreted with caution given the raised possibility of false negativity on decalcified specimens. Case reviewed at [address] [address]. DEPARTMENT OF PATHOLOGY AND LABORATORY MEDICINE [place], [place] [address] [email or web address] Normal [facility] Cerebrospinal fluid appearan ce descriptionon 09-22-2021 Appearance (CSF) CLEAR Clear [facility] Work Phone: Cerebrospinal fluid cell cou nton 09-22-2021 Cell count panel (CSF) TNP [facility] Work Phone: Comment on above: Test not performed Cerebrospinal fluid color id entificationon 09-22-2021 Color (CSF) COLORLESS Colorless [facility] Work Phone: Cerebrospinal fluid white bl ood cell counton 09-22-2021 WBC (CSF) [#/Vol] 0 /mm-3 0-5 [facility] Work Phone: Gram stain for investigation of transfusion reactionon 09-22-2021 Microscopic observation Gram stain Nom (Unsp spec) [facility] Work Phone: [phone] Laboratory - Specimen inform ationon 09-22-2021 Tube number Nom (CSF) [ID] 4 [facility] Work Phone: [phone] Mononuclear cells Auto (Body fld) [#/Vol]on 09-22-2021 Mononuclear cells (Body fld) [#/Vol] 0.001 10*3/uL [facility] Work Phone: No Panel Informationon 09-22 Body Fluid Mononuclear WBCs (%) 100.0 % [facility] Work Phone: [phone] Body Fluid Polynuclear WBCs (#) 0.000 10^3/uL [facility] Work Phone: [phone] Body Fluid Polynuclear WBCs (%) 0.0 % [facility] Work Phone: [phone] CSF RBC 0 /mm-3 None seen [facility] Work Phone: Review by pathologiston 09-03 Pathologist review Reji (Unsp spec) [Interp] Reviewed [facility] Work Phone: Comment on above: Previous reported re sult: May follow Edited by: KUSH on 09/26/21:1014Acellular specimen.Brennon Reece M.D. 09/26/21 AMENDED REPORT 09/26/21 1014 PATH REV previously reported as: May follow CNTHERAPYon 01-25-2021 CNTHERAPY OT/PT/Speech Visit (PTMDRG) JAYA HOPSON ([id number]) 1995 F Date Time Provider Department 01/25/21 11:30 AM NAVIN GUERRA OSIRISG Date Time Provider Department Center 01/25/2021 11:30 AM [id number], KELLY PTMDRG [facility] Reason for Visit: PT Discharge [752] Primary Visit Diagnosis:Dizziness and giddiness [R42] Other Visit Diagnosis:Migraine with aura and without status migrainosus, not intractable [G43.109] Allergies As of Date: 01/25/2021 Noted Allergy Reaction FLUOCINOLONE 08/11/2014 10 - Anaphylaxis AMOXICILLIN 08/11/2014 4 - Hives Date Reviewed: 12/05/2020 [facility] Bruce - Fully Assessed Prescriptions as of 01/25/2021 Sig: SUMATRIPTAN 100 MG TABLET 1/2 to 1 po at onset migraine* NAPROXEN 500 MG TABLET Take one(1) tablet three time* ALBUTEROL SULFATE HFA 90 MCG/* Inhale as instructed. Progress Notes: Navin Guerra, PT 01/25/2021 12:37 PM Signed Episode Visit Count: 3 Therapist That Will Oversee The Plan Of Care: Navin Guerra Start of Care Date: 12/14/20 Onset Date: 09/02/20 (long standing issue, recently worse with increase Migraines) Patient Identified by Name and Date of : Yes [facility] PHYSICAL THERAPY DISCONTINUANCE OF CARE PLAN OF CARE UPDATE: Assessment: Jaya Hopson is discontinued from Physical Therapy services due to goal achievement. and Patient/Clinician mutual decision to discontinue current plan of care.. Patient was seen for 3 visits from Start of Care Date: 12/14/20 to 01/25/2021 and treatment included: Neuromuscular re-education. Patient is not experiencing dizzy events like she was. She is aware of migraine and dizzy connection and feels more prepared to cope with dizzy events. She has HEP for vestibular based ex and balance. Difficulty is noted with AP weight shifts retro with less use of hip strategy. HEP instructed to address this deficit. Patient has made improvements on her intensity and severity of dizziness and feels content to discontinue PT at this time. Goals for Episode of Care: UPDATED 01/25/2021: created on 12/14/20 through 02/12/21 Patient will perform Romberg stance on compliant surface with EC for 30 seconds without LOB: MET Patient will be independent with home exercise program and progression: Partially met: Addressed. Patient states she has not been able to do much recently with the moving. Patient will return to prior level of function with all activities of daily living with trace reports of dizziness--frequency of spinning sensations to 3-4 days per week for 50% reduction of symptoms: MET: No spinning events for a few weeks Patient will deny dizziness with rest: MET: Dizziness has been better and not at rest. Patient will demonstrate the ability to complete VOR in static and dynamic positions with trace report of dizziness (160 + bpm performance).: MET: good tolerance at 160 bpm Patient Goals: want to reduce dizziness, find ways to manage dizzy spells: MET. Patient states she has minor events with moving too fast. SUBJECTIVE: Patient Reason for Visit: today feels ok. Did have a little dizziness on the elevator which is normal for her. Has been moving with a lot of physical actiivty without dizziness. Vestibular Rating of current symptoms: 0/10 Pain: Pain Pain Level: 0 PROMIS Scales Higher is Better 12/21/2019 12/05/2020 12/14/2020 Phys Func - Score - - 46 (within normal limits) Phys Func - Percentile - - 34 % Social Roles - Score - - 55 (within normal limits) Social Role - Percentile - - 69 % GH Physical - Score 47.7 50.8 - GH Physical - Percentile 41 % 53 % - GH Mental - Score 50.8 48.3 - GH Mental - Percentile 53 % 43 % - Self-Eff Symptom - Score - - 41 (Average) Self-Eff Symptom - Percentile - - 18 % T-scores: mean of general population = 50. 5 points is clinically meaningfully difference Percentiles provide an indication of how the patient's score ranks in relation to the general population. Higher percentile rankings indicate better function/quality of life. 50th percentile is the average of the general population and indicates half of respondents had a worse score. Lower is Better 12/14/2020 Fatigue - Score 42 (within normal limits) Fatigue - Percentile 79 % T-scores: mean of general population = 50. 5 points is clinically meaningfully difference Percentiles provide an indication of how the patient's score ranks in relation to the general population. Higher percentile rankings indicate better function/quality of life. 50th percentile is the average of the general population and indicates half of respondents had a worse score. OBJECTIVE MEASURES WITH LEVEL OF FUNCTION: TREATMENT: Neuromuscular Re-Education: 1: CTSIB 2: standing X-1 at 160 bpm vertical and horizontal x 1 min each 3: Biodex: posture s (more content not included)... [facility] Nurse Visit (COVAMD) JAYA HOPSON ([id number]) 1995 F Date Time Provider Department 01/11/21 3:00 PM COVID VACCINE [facility] During your visit today, we recorded the following information about you: Referring Provider: SUDHA HALL JR [[id number]] Allergies As of Date: 01/11/2021 Noted Allergy Reaction FLUOCINOLONE 08/11/2014 10 - Anaphylaxis AMOXICILLIN 08/11/2014 4 - Hives Date Reviewed: 12/05/2020 Reviewed by: Zenia ([facility]) Bruce - Fully Assessed Order(s):[employer] SARS-COV-2 VACCINE 2D DOSE APPT [[id number]] Order #: [id number] [employer] COVID-19 VACCINE [[id number]] Order #: [id number] Prescriptions as of 01/11/2021 Sig: SUMATRIPTAN 100 MG TABLET 1/2 to 1 po at onset migraine* NAPROXEN 500 MG TABLET Take one(1) tablet three time* ALBUTEROL SULFATE HFA 90 MCG/* Inhale as instructed. Problem List As Of Date 01/11/2021 Noted Resolved Chiari malformation type I (HCC) [G93.5] 08/20/2017 Vision blurred [H53.8] 08/20/2017 Dizziness and giddiness [R42] 08/20/2017 Nonintractable headache [R51.9] 08/20/2017 Brain lesion [G93.9] 08/20/2017 Migraine with aura and without status migrainos*10/14/2017 Encounter Status:Closed by CLOSURE EPIC, ADMINISTRATIVE on 01/12/21 [facility] CNTHERAPYon 01-04-2021 CNTHERAPY OT/PT/Speech Visit (PTMDRG) JAYA HOPSON ([id number]) 1995 F Date Time Provider Department 01/04/21 9:30 AM NAVIN GUERRA PTMDRG Date Time Provider Department [place] 01/04/2021 9:30 AM [id number], KELLY PTMDRG [facility] Reason for Visit: Physical Therapy [503] Primary Visit Diagnosis:Dizziness and giddiness [R42] Other Visit Diagnosis:Migraine with aura and without status migrainosus, not intractable [G43.109] Allergies As of Date: 01/04/2021 Noted Allergy Reaction FLUOCINOLONE 08/11/2014 10 - Anaphylaxis AMOXICILLIN 08/11/2014 4 - Hives Date Reviewed: 12/05/2020 Reviewed by: Zenia Barrera - Fully Assessed Prescriptions as of 01/04/2021 Sig: SUMATRIPTAN 100 MG TABLET 1/2 to 1 po at onset migraine* NAPROXEN 500 MG TABLET Take one(1) tablet three time* ALBUTEROL SULFATE HFA 90 MCG/* Inhale as instructed. Progress Notes: Navin Guerra PT 01/04/2021 1:20 PM Signed Episode Visit Count: 2 Therapist That Will Oversee The Plan Of Care: Navin Guerra Start of Care Date: 12/14/20 Onset Date: 09/02/20 (long standing issue, recently worse with increase Migraines) Patient Identified by Name and Date of : Yes REHABILITATION AND SPORTS THERAPY PHYSICAL THERAPY TREATMENT NOTE ASSESSMENT: Jaya Hopson demonstrated some improvements in dizziness and good tolerance to HEP. This date, noted visual dependency on CTSIB and symptom provocation with VORc and horizontal VOR ex. Overall good tolerance with only mild symptom increase and ability to recovery quickly. The patient will continue to benefit from ongoing skilled physical therapy for progression of balance and VOR work to reduce dizziness symptoms. PLAN FOR NEXT VISIT: revisit tolerance to HEP, progress VOR in standing, balance ex with EC SUBJECTIVE: Patient Reason for Visit: pt had COVID vaccine and has been feeling weird. Some dizziness with HEP, like her head is full. Gets a little dizzy but it subsides quickly. Balance and dizziness feels pretty good. Dizziness less noticeable at rest. Pain: Pain Pain Level: 1 Pain Location: (headache) Description: Pressure Frequency: Intermittent Post Treatment Pain Post Treatment Pain Level: No Change Post Treatment Symptoms: feels slightly dizzy but feels fine to exit OBJECTIVE MEASURES WITH LEVEL OF FUNCTION: CTSIB Eyes open, firm surface Trial 1 (sec): 30 Eyes open, firm surface Trial 1 (sway): Mild Eyes closed, firm surface Trial 1 (sec): 30 Eyes closed, firm surface Trial 1 (sway): Moderate Eyes open, foam surface Trial 1 (sec): 30 Eyes open, foam surface Trial 1 (sway): Mild Eyes closed, foam surface Trial 1 (sec): 30 Eyes closed, foam surface Trial 1 (sway): Moderate TREATMENT: Neuromuscular Re-Education: 1: CTSIB 2: seated X-1 : 120 bpm vertical and horizontal x 1 min each, 150 bpm x 30 sec vertical and horizontal 3: *instructed to keep HEP at 120 bpm daily, add increased speed at short time intervals 3-4 times per week 4: imagined targets: vertical and horizontal x several reps each. 5: *imagined targets with emphasis to the R 6: standing eye/head 2 point gaze x 10 reps 7: further education on Migraine, dizziness, balance inter-relationship. Reinforcement to modify ex and terminate if symptoms of Migraine occur. 8: standing VORc horizontal 10 reps x 3 sets 9: *standing VORc for HEP 3-4 days per week Skilled Intervention: Skilled judgment used to assess appropriate program for balance and coordination activity. Education in proprioceptive/kinesthe tic awareness during standing and balance activity. Insured patient safety with use of proper guarding Reviewed and educated patient on additions/changes for home program as noted above with an (*). Provided written instruction for home program to facilitate proper performance and compliance. Correct performance of home program was facilitated with verbal and visual cueing. Patient education as noted. Billing: Nolasco: Neuromuscular Re-education (05605): 1:1 time: 53 minutes (4 units: 53-67 mins) Total time / Length of visit: 54 minutes Navin Guerra PT [facility] 12-21-2020 [facility] Nurse Visit (COVAMD) JAYA HOPSON ([id number]) 1995 F Date Time Provider Department 12/21/20 3:00 PM COVID VACCINE [facility] During your visit today, we recorded the following information about you: Referring Provider: SUDHA HALL JR [[id number]] Allergies As of Date: 12/21/2020 Noted Allergy Reaction FLUOCINOLONE 08/11/2014 10 - Anaphylaxis AMOXICILLIN 08/11/2014 4 - Hives Date Reviewed: 12/05/2020 Reviewed by: [facility] Hospital[facility]ya Barrera - Fully Assessed Order(s):[employer] COVID-19 VACCINE [[id number]] Order #: [id number] [employer] SARS-COV-2 VACCINE 2D DOSE APPT [[id number]] Order #: [id number] FUTURE Prescriptions as of 12/21/2020 Sig: SUMATRIPTAN 100 MG TABLET 1/2 to 1 po at onset migraine* NAPROXEN 500 MG TABLET Take one(1) tablet three time* ALBUTEROL SULFATE HFA 90 MCG/* Inhale as instructed. Problem List As Of Date 12/21/2020 Noted Resolved Chiari malformation type I (HCC) [G93.5] 08/20/2017 Vision blurred [H53.8] 08/20/2017 Dizziness and giddiness [R42] 08/20/2017 Nonintractable headache [R51.9] 08/20/2017 Brain lesion [G93.9] 08/20/2017 Migraine with aura and without status migrainos*10/14/2017 Encounter Status:Closed by CLOSURE [facility], ADMINISTRATIVE on 12/22/20 [facility] CNTHERAPYon 12-14-2020 CNTHERAPY OT/PT/Speech Visit (PTMDRG) JAYA HOPSON ([id number]) 1995 F Date Time Provider Department 12/14/20 1:30 PM NAVIN GUERRA (PT) PTMDRG Date Time Provider Department [place] 12/14/2020 1:30 PM [id number], KELLY (PT)PTMDRG [facility] Reason for Visit: PT Eval [027] Patient Education [91] Primary Visit Diagnosis:Migraine with aura and without status migrainosus, not intractable [G43.109] Other Visit Diagnosis:Dizziness and giddiness [R42] Allergies As of Date: 12/14/2020 Noted Allergy Reaction FLUOCINOLONE 08/11/2014 10 - Anaphylaxis AMOXICILLIN 08/11/2014 4 - Hives Date Reviewed: 12/05/2020 Reviewed by: Zenia Barrera - Fully Assessed Prescriptions as of 12/14/2020 Sig: SUMATRIPTAN 100 MG TABLET 1/2 to 1 po at onset migraine* NAPROXEN 500 MG TABLET Take one(1) tablet three time* ALBUTEROL SULFATE HFA 90 MCG/* Inhale as instructed. Progress Notes: Navin Guerra PT 12/14/2020 9:15 PM Signed Episode Visit Count: 1 Therapist That Will Oversee The Plan Of Care: Navin Guerra Start of Care Date: 12/14/20 Onset Date: 09/02/20 (long standing issue, recently worse with increase Migraines) Patient Identified by Name and Date of : Yes REHABILITATION AND SPORTS THERAPY PHYSICAL THERAPY EVALUATION PLAN OF CARE: Assessment: Jaya Hopson presents with the chief complaint of Migraines, dizziness and sense of movement. She presents with impairments of abnormal VOR/VORc and positional testing indicative of motion sensitivity with reduced eye/vision stability. She presents as a unilateral hypofunction (? Central originated vs peripheral). PROMIS? (Patient-Reported Outcomes Measurement Information System) scores were reviewed and all domains identified as within normal limits. She may benefit from skilled therapy services to improve VOR responses, reduce dizziness episodes frequency and intensity, and reduce sense of movement at rest. Progression of VOR ex will be cautious due to migraine issues. Prognosis: Good Good due to: current objective clinical presentation;good support system/ coping skills Goals for Episode of Care: created on 12/14/20 through 02/12/21 Patient will perform Romberg stance on compliant surface with EC for 30 seconds without LOB. Patient will be independent with home exercise program and progression. Patient will return to prior level of function with all activities of daily living with trace reports of dizziness--frequency of spinning sensations to 3-4 days per week for 50% reduction of symptoms. Patient will deny dizziness with rest. Patient will demonstrate the ability to complete VOR in static and dynamic positions with trace report of dizziness (160 + bpm performance). Patient Goals: want to reduce dizziness, find ways to manage dizzy spells Planned Interventions, Frequency, and Duration: Current Frequency: 1x every other week Duration: 8 weeks Total Number of Visits Planned: 4 Planned Treatment Interventions: Therapeutic exercise (99817);Neuromuscular re-education (72074);Manual therapy (45690);Self-retirement management (08306);Patient/Family/ Caregiver Education PLAN FOR NEXT VISIT: CSIB. Progress VOR ex. Monitor response to X-1 Patient demonstrates good understanding of plan of care and treatment. The above goals and plan of care were discussed and agreed upon by patient/family. SUBJECTIVE: Jaya Hopson is a 25 year old female seen today for pt states she has had long standing issues with Migraines, off and on visual auras, dizziness, and blurred vision. Seems like symptoms have gotten slightly worse. Symptoms comes and goes but she reports some level of dizziness or sense of movement on a daily basis. Dizzy spells last 5-10 seconds but are frequent. Migraines increase the intensity and frequency. Inbetween dizzy episodes, feels like she is moving. Patient Goals: want to reduce dizziness, find ways to manage dizzy spells Functional Limitations: Comments Functional Limitation Comments: limits driving when FUENTES/dizzy bad. Prior Level of Function: Independent without limitations (long standing hx of issues--deals when she has to) Intake Information: Prescription present Previous Treatment: None Falls Interview: No positive findings with falls interview Aquatic Screen: No Vestibular Symptoms present for: years Symptom onset: gradual (cannot recall trigger for increased symptoms.) Dizziness: Yes Description: off sensation;woozy (float or sway back and forth) Rating of current symptoms: 10 Frequency: Intermittent Duration: hours (spinning--usually several seconds/brief) Symptoms worsened by: watching moving objects;busy environments;elevators (can be spontaneous ) Imbalance: No (balance on R side not as good as the L ) Fall Assessment: No falls Nausea: no, very rarely Motio (more content not included)... Normal [facility] No Panel Information SARS-CoV-2 & FLU Antigen (Rapid) [facility] Work Phone: Vital Signs Date Time Vital Sign Value Performing Clinician Facility 06-25-2025 09:07-0400 Body height 165.1 cm Obdulia Garcia MD Work Phone: [facility] 06-25-2025 09:07-0400 Body mass index (BMI) [Ratio] 32.98 kg/m2 Obdulia Garcia MD Work Phone: [facility] 06-25-2025 09:07-0400 Body weight 89.9 kg Obdulia Garcia MD Work Phone: [facility] 06-25-2025 09:07-0400 Diastolic blood pressure 84 mm[Hg] Obdulia Garcia MD Work Phone: [facility] 06-25-2025 09:07-0400 Heart rate 67 /min Obdulia Garcia MD Work Phone: [facility] 06-25-2025 09:07-0400 Systolic blood pressure 125 mm[Hg] Obdulia Garcia MD Work Phone: [facility] 05-05-2025 07:56-0400 Body height 165.1 cm Obdulia Garcia MD Work Phone: [facility] 05-05-2025 07:56-0400 Body mass index (BMI) [Ratio] 32.72 kg/m2 Obdulia Garcia MD Work Phone: [facility] 05-05-2025 07:56-0400 Body weight 89.18 kg Obdulia Garcia MD Work Phone: [facility] 05-05-2025 07:56-0400 Diastolic blood pressure 76 mm[Hg] Obdulia Garcia MD Work Phone: [facility] 05-05-2025 07:56-0400 Heart rate 98 /min Obdulia Garcia MD Work Phone: [facility] 05-05-2025 07:56-0400 Systolic blood pressure 111 mm[Hg] Obdulia Garcia MD Work Phone: [facility] 04-15-2025 16:05-0400 Body mass index (BMI) [Ratio] 33.37 kg/m2 Nurse Wstr Work Phone: [facility] 04-15-2025 16:05-0400 Body weight 90.27 kg Nurse Wstr Work Phone: [facility] 04-15-2025 16:05-0400 Diastolic blood pressure 84 mm[Hg] Nurse Wstr Work Phone: [facility] 04-15-2025 16:05-0400 Systolic blood pressure 120 mm[Hg] Nurse Wstr Work Phone: [facility] 02-22-2025 07:57-0400 Diastolic blood pressure 68 mm[Hg] Daniel Olivo APRN.CNM Work Phone: [facility] 02-22-2025 07:57-0400 Systolic blood pressure 120 mm[Hg] Daniel Olivo APRN.CNM Work Phone: [facility] 02-17-2025 07:06-0400 Body height 165.1 cm Obdulia Garcia MD Work Phone: [facility] 02-17-2025 07:06-0400 Body mass index (BMI) [Ratio] 31.98 kg/m2 Obdulia Garcia MD Work Phone: [facility] 02-17-2025 07:06-0400 Body weight 87.18 kg Obdulia Garcia MD Work Phone: [facility] 02-17-2025 07:06-0400 Diastolic blood pressure 77 mm[Hg] Obdulia Garcia MD Work Phone: [facility] 02-17-2025 07:06-0400 Heart rate 64 /min Obdulia Garcia MD Work Phone: [facility] 02-17-2025 07:06-0400 Systolic blood pressure 115 mm[Hg] Obdulia Garcia MD Work Phone: [facility] 01-27-2025 21:19-0400 Body temperature 98 [degF] Dr. Cem Boggs DO Work Phone: [facility] 01-27-2025 21:19-0400 Diastolic blood pressure 91 mm[Hg] Dr. Cem Boggs DO Work Phone: [facility] 01-27-2025 21:19-0400 Heart rate 64 /min Dr. Cem Boggs DO Work Phone: [facility] 01-27-2025 21:19-0400 Respiratory rate 16 /min Dr. Cem Boggs DO Work Phone: [facility] 01-27-2025 21:19-0400 SaO2% (BldA) [Mass fraction] 100 % Dr. Cem Boggs DO Work Phone: [facility] 01-27-2025 21:19-0400 Systolic blood pressure 121 mm[Hg] Dr. Cem Boggs DO Work Phone: [facility] 01-27-2025 18:21-0400 Body height 165.[address] Cem Boggs DO Work Phone: [facility] 01-27-2025 18:21-0400 Body mass index (BMI) [Ratio] 32.3 kg/m2 Dr. Cem Boggs DO Work Phone: [facility] 01-27-2025 18:21-0400 Body weight 87.[address] Cem Boggs DO Work Phone: [facility] 10-29-2024 15:42-0500 Body mass index (BMI) [Ratio] 30.69 kg/m2 Nurse Wstr Work Phone: [facility] 10-29-2024 15:42-0500 Body weight 83.01 kg Nurse Wstr Work Phone: [facility] 10-29-2024 15:42-0500 Diastolic blood pressure 82 mm[Hg] Nurse Wstr Work Phone: [facility] 10-29-2024 15:42-0500 Systolic blood pressure 114 mm[Hg] Nurse Wstr Work Phone: [facility] 09-30-2024 12:47-0500 Body height 165.1 cm Edie Powers MD Work Phone: [facility] 09-30-2024 12:47-0500 Body mass index (BMI) [Ratio] 28.96 kg/m2 Edie Powers MD Work Phone: [facility] 09-30-2024 12:47-0500 Body weight 78.93 kg Edie Powers MD Work Phone: [facility] 09-30-2024 12:47-0500 Diastolic blood pressure 79 mm[Hg] Edie Powers MD Work Phone: [facility] 09-30-2024 12:47-0500 Heart rate 79 /min Edie Powers MD Work Phone: [facility] 09-30-2024 12:47-0500 Systolic blood pressure 121 mm[Hg] Edie Powers MD Work Phone: [facility] 09-11-2024 13:33-0500 Body mass index (BMI) [Ratio] 29.91 kg/m2 Apsen Martinez [employer] MANAGEMENT ENGINEER.HIDE CURER Work Phone: [facility] 09-11-2024 13:33-0500 Body weight 80.9 kg Aspen Martinez SOLID WASTE MANAGEMENT ENGINEER.HIDE CURER Work Phone: [facility] 09-11-2024 13:33-0500 Diastolic blood pressure 77 mm[Hg] Aspen Martinez SOLID WASTE MANAGEMENT ENGINEER.HIDE CURER Work Phone: [facility] 09-11-2024 13:33-0500 Heart rate 67 /min Aspen Martinez SOLID WASTE MANAGEMENT ENGINEER.HIDE CURER Work Phone: [facility] 09-11-2024 13:33-0500 SaO2% (BldA) [Mass fraction] 100 % Aspen Martinez SOLID WASTE MANAGEMENT ENGINEER.HIDE CURER Work Phone: [facility] 09-11-2024 13:33-0500 Systolic blood pressure 121 mm[Hg] Aspen Martinez SOLID WASTE MANAGEMENT ENGINEER.HIDE CURER Work Phone: [facility] 08-31-2024 11:00-0500 Diastolic blood pressure 90 mm[Hg] See Velasquez MD Work Phone: [facility] 08-31-2024 11:00-0500 Heart rate 66 /min See Velasquez MD Work Phone: [facility] 08-31-2024 11:00-0500 Systolic blood pressure 108 mm[Hg] See Velasquez MD Work Phone: [facility] 08-31-2024 09:31-0500 Body height 166.4 cm See Velasquez MD Work Phone: [facility] 08-31-2024 09:31-0500 Body mass index (BMI) [Ratio] 29.5 kg/m2 See Velasquez MD Work Phone: [facility] 08-31-2024 09:31-0500 Body weight 81.65 kg See Velasquez MD Work Phone: [facility] 08-06-2024 09:01-0500 Body mass index (BMI) [Ratio] 30.92 kg/m2 Nurse Wstr Work Phone: [facility] 08-06-2024 09:01-0500 Body weight 83.64 kg Nurse Wstr Work Phone: [facility] 08-06-2024 09:01-0500 Diastolic blood pressure 88 mm[Hg] Nurse Wstr Work Phone: [facility] 08-06-2024 09:01-0500 Systolic blood pressure 112 mm[Hg] Nurse Wstr Work Phone: [facility] 06-17-2024 13:08-0400 Body height 165.1 cm Obdulia Garcia MD Work Phone: [facility] 06-17-2024 13:08-0400 Body mass index (BMI) [Ratio] 29.95 kg/m2 Obdulia Garcia MD Work Phone: [facility] 06-17-2024 13:08-0400 Body weight 81.65 kg Obdulia Garcia MD Work Phone: [facility] 06-17-2024 13:08-0400 Diastolic blood pressure 76 mm[Hg] Obdulia Garcia MD Work Phone: [facility] 06-17-2024 13:08-0400 Heart rate 81 /min Obdulia Garcia MD Work Phone: [facility] 06-17-2024 13:08-0400 Systolic blood pressure 112 mm[Hg] Obdulia Garcia MD Work Phone: [facility] 05-13-2024 08:46-0400 Body mass index (BMI) [Ratio] 30.35 kg/m2 Nurse Wstr Work Phone: [facility] 05-13-2024 08:46-0400 Body weight 82.1 kg Nurse Wstr Work Phone: [facility] [place] 05-13-2024 08:46-0400 Diastolic blood pressure 84 mm[Hg] Nurse Wstr Work Phone: [facility] [place] 05-13-2024 08:46-0400 Systolic blood pressure 120 mm[Hg] Nurse Wstr Work Phone: [facility] [place] 05-01-2024 09:05-0400 Body mass index (BMI) [Ratio] 30.46 kg/m2 Rimmacleopatra Panda SOLID WASTE MANAGEMENT ENGINEER.HIDE CURER Work Phone: [facility] [place] 05-01-2024 09:05-0400 Body weight 82.4 kg Rimmacleopatra Panda SOLID WASTE MANAGEMENT ENGINEER.HIDE CURER Work Phone: [facility] [place] 05-01-2024 09:05-0400 Diastolic blood pressure 78 mm[Hg] Rimmacleopatra Panda SOLID WASTE MANAGEMENT ENGINEER.HIDE CURER Work Phone: [facility] [place] 05-01-2024 09:05-0400 Heart rate 72 /min Rimmacleopatra Panda SOLID WASTE MANAGEMENT ENGINEER.HIDE CURER Work Phone: [facility] [place] 05-01-2024 09:05-0400 Respiratory rate 16 /min Rimmacleopatra Panda SOLID WASTE MANAGEMENT ENGINEER.HIDE CURER Work Phone: [facility] [place] 05-01-2024 09:05-0400 SaO2% (BldA) [Mass fraction] 98 % Rimma Crescencioalfa SOLID WASTE MANAGEMENT ENGINEER.HIDE CURER Work Phone: [facility] [place] 05-01-2024 09:05-0400 Systolic blood pressure 120 mm[Hg] Rimma Crescencioerich SOLID WASTE MANAGEMENT ENGINEER.HIDE CURER Work Phone: [facility] [place] 04-13-2024 10:56-0400 Body height 164.5 cm Cem Sheets DO Work Phone: [facility] [place] 04-13-2024 10:56-0400 Body mass index (BMI) [Ratio] 30.02 kg/m2 Cem Sheets DO Work Phone: [facility] [place] 04-13-2024 10:56-0400 Body temperature 98.2 [degF] Cem Sheets DO Work Phone: [facility] [place] 04-13-2024 10:56-0400 Body weight 81.19 kg Cem Sheets DO Work Phone: [facility] [place] 04-13-2024 10:56-0400 Diastolic blood pressure 68 mm[Hg] Cem Sheets DO Work Phone: [facility] [place] 04-13-2024 10:56-0400 Heart rate 64 /min Cem Sheets DO Work Phone: [facility] [place] 04-13-2024 10:56-0400 Respiratory rate 16 /min Cem Sheets DO Work Phone: [facility] [place] 04-13-2024 10:56-0400 Systolic blood pressure 98 mm[Hg] Cem Sheets DO Work Phone: [facility] [place] 02-28-2024 10:10-0400 Body height 166 cm Brannon Sainz MD Work Phone: [facility] [place] 02-28-2024 10:10-0400 Body mass index (BMI) [Ratio] 29.55 kg/m2 Brannon Sainz MD Work Phone: [facility] [place] 02-28-2024 10:10-0400 Body temperature 98.6 [degF] Brannon Sainz MD Work Phone: [facility] [place] 02-28-2024 10:10-0400 Body weight 81.42 kg Brannon Sainz MD Work Phone: [facility] [place] 02-28-2024 10:10-0400 Diastolic blood pressure 83 mm[Hg] Brannon Sainz MD Work Phone: [facility] [place] 02-28-2024 10:10-0400 Heart rate 60 /min Brannon Sainz MD Work Phone: [facility] [place] 02-28-2024 10:10-0400 SaO2% (BldA) [Mass fraction] 100 % Brannon Sainz MD Work Phone: [facility] [place] 02-28-2024 10:10-0400 Systolic blood pressure 114 mm[Hg] Brannon Sainz MD Work Phone: [facility] [place] 02-19-2024 09:57-0400 Body height 165.1 cm Daniel Williamsonts SOLID WASTE MANAGEMENT ENGINEER.CNM Work Phone: [facility] [place] 02-19-2024 09:57-0400 Body mass index (BMI) [Ratio] 30.12 kg/m2 Daniel Plotts SOLID WASTE MANAGEMENT ENGINEER.CNM Work Phone: [facility] [place] 02-19-2024 09:57-0400 Body weight 82.1 kg Daniel Williamsonts SOLID WASTE MANAGEMENT ENGINEER.CNM Work Phone: [facility] [place] 02-19-2024 09:57-0400 Diastolic blood pressure 76 mm[Hg] Daniel Plotts SOLID WASTE MANAGEMENT ENGINEER.CNM Work Phone: [facility] [place] 02-19-2024 09:57-0400 Systolic blood pressure 120 mm[Hg] Daniel Williamsonts SOLID WASTE MANAGEMENT ENGINEER.CNM Work Phone: [facility] [place] 02-05-2024 08:19-0400 Body height 164.5 cm Cem Sheets DO Work Phone: [facility] [place] 02-05-2024 08:19-0400 Body mass index (BMI) [Ratio] 30.19 kg/m2 Cem Sheets DO Work Phone: [facility] [place] 02-05-2024 08:19-0400 Body temperature 98.1 [degF] Cem Sheets DO Work Phone: [facility] [place] 02-05-2024 08:19-0400 Body weight 81.65 kg Cem Sheets DO Work Phone: [facility] [place] 02-05-2024 08:19-0400 Diastolic blood pressure 76 mm[Hg] Cem Sheets DO Work Phone: [facility] [place] 02-05-2024 08:19-0400 Heart rate 60 /min Cem Sheets DO Work Phone: [facility] [place] 02-05-2024 08:19-0400 Respiratory rate 16 /min Cem Sheets DO Work Phone: [facility] [place] 02-05-2024 08:19-0400 SaO2% (BldA) [Mass fraction] 100 % Cem Sheets DO Work Phone: [facility] [place] 02-05-2024 08:19-0400 Systolic blood pressure 116 mm[Hg] Cem Sheets DO Work Phone: [facility] [place] 01-21-2024 10:52-0400 Body height 165.1 cm Aspen Martinez SOLID WASTE MANAGEMENT ENGINEER.HIDE CURER Work Phone: [facility] [place] 01-21-2024 10:52-0400 Body mass index (BMI) [Ratio] 30.6 kg/m2 Aspen Martinez SOLID WASTE MANAGEMENT ENGINEER.HIDE CURER Work Phone: [facility] [place] 01-21-2024 10:52-0400 Body weight 83.4 kg Aspen Martinez SOLID WASTE MANAGEMENT ENGINEER.HIDE CURER Work Phone: [facility] [place] 01-21-2024 10:52-0400 Diastolic blood pressure 73 mm[Hg] Aspen Martinez SOLID WASTE MANAGEMENT ENGINEER.HIDE CURER Work Phone: [facility] [place] 01-21-2024 10:52-0400 Heart rate 61 /min Aspen Martinez APRN.HIDE CURER Work Phone: [facility] [place] 01-21-2024 10:52-0400 Systolic blood pressure 118 mm[Hg] Aspen Martinez SOLID WASTE MANAGEMENT ENGINEER.HIDE CURER Work Phone: [facility] [place] 11-26-2023 09:50-0400 Body height 165.1 cm Rakesh Salazar MD Work Phone: [employer] [facility] Comment on above: [facility] ht check 11-26-2023 09:50-0400 Body mass index (BMI) [Ratio] 29.02 kg/m2 Rakesh Salazar MD Work Phone: [employer] [facility] 11-26-2023 09:50-0400 Body temperature 97.9 [degF] Rakesh Salazar MD Work Phone: [facility] 11-26-2023 09:50-0400 Body weight 79.11 kg Rakesh Salazar MD Work Phone: [facility] 11-26-2023 09:50-0400 Diastolic blood pressure 76 mm[Hg] Rakesh Salazar MD Work Phone: [facility] 11-26-2023 09:50-0400 Heart rate 58 /min Rakesh Salazar MD Work Phone: [facility] 11-26-2023 09:50-0400 Respiratory rate 16 /min Rakesh Salazar MD Work Phone: [facility] 11-26-2023 09:50-0400 Systolic blood pressure 116 mm[Hg] Rakesh Salazar MD Work Phone: [facility] 11-07-2023 09:10-0500 Body height 168.8 cm Koli Green SOLID WASTE MANAGEMENT ENGINEER.HIDE CURER Work Phone: [facility] [place] 11-07-2023 09:10-0500 Body temperature 97.81 [degF] Koli Green SOLID WASTE MANAGEMENT ENGINEER.HIDE CURER Work Phone: [facility] [place] 11-07-2023 09:10-0500 Body weight 82.95 kg Koli Green SOLID WASTE MANAGEMENT ENGINEER.HIDE CURER Work Phone: [facility] [place] 11-07-2023 09:10-0500 Diastolic blood pressure 59 mm[Hg] Koli Green SOLID WASTE MANAGEMENT ENGINEER.HIDE CURER Work Phone: [facility] [place] 11-07-2023 09:10-0500 Heart rate 57 /min Koli Green SOLID WASTE MANAGEMENT ENGINEER.HIDE CURER Work Phone: [facility] [place] 11-07-2023 09:10-0500 Systolic blood pressure 109 mm[Hg] Koli Green SOLID WASTE MANAGEMENT ENGINEER.HIDE CURER Work Phone: [facility] [place] 11-05-2023 14:10-0500 Body height 167.6 cm Zaria Gilman HIDE CURER Work Phone: [facility] 11-05-2023 14:10-0500 Body mass index (BMI) [Ratio] 29.1 kg/m2 Zaria Gilman HIDE CURER Work Phone: [facility] 11-05-2023 14:10-0500 Body weight 81.78 kg Zaria Gilman HIDE CURER Work Phone: [facility] 11-05-2023 14:10-0500 Diastolic blood pressure 83 mm[Hg] Zaria Gilman HIDE CURER Work Phone: [facility] 11-05-2023 14:10-0500 Heart rate 57 /min Zaria Gilman HIDE CURER Work Phone: [facility] 11-05-2023 14:10-0500 SaO2% (BldA) [Mass fraction] 99 % Zaria Gilman HIDE CURER Work Phone: [facility] 11-05-2023 14:10-0500 Systolic blood pressure 118 mm[Hg] Zaria Gilman HIDE CURER Work Phone: [facility] 09-09-2023 14:58-0500 Diastolic blood pressure 88 mm[Hg] Faith Taylor MD Work Phone: [facility] 09-09-2023 14:58-0500 Heart rate 72 /min Faith Taylor MD Work Phone: [facility] 09-09-2023 14:58-0500 Systolic blood pressure 123 mm[Hg] Faith Taylor MD Work Phone: [facility] 09-09-2023 14:48-0500 Body height 167.6 cm Faith Taylor MD Work Phone: [facility] 09-09-2023 14:48-0500 Body mass index (BMI) [Ratio] 30.67 kg/m2 Faith Taylor MD Work Phone: [facility] 09-09-2023 14:48-0500 Body weight 86.18 kg Faith Taylor MD Work Phone: [facility] 09-09-2023 14:48-0500 SaO2% (BldA) [Mass fraction] 100 % Faith Taylor MD Work Phone: [facility] 12-19-2023 07:46-0500 Body temperature 98.6 [degF] CJ Hassmann DPM Work Phone: [facility] 08-20-2023 07:46-0500 Diastolic blood pressure 85 mm[Hg] CJ Hassmann DPM Work Phone: [facility] 08-20-2023 07:46-0500 Heart rate 81 /min CJ Hassmann DPM Work Phone: [facility] 08-20-2023 07:46-0500 Systolic blood pressure 126 mm[Hg] CJ Hassmann DPM Work Phone: [facility] 08-16-2023 07:25-0500 Body temperature 98.4 [degF] Trang Castillo HIDE CURER Work Phone: [facility] 08-16-2023 07:25-0500 Diastolic blood pressure 69 mm[Hg] Trang Castillo HIDE CURER Work Phone: [facility] 08-16-2023 07:25-0500 Heart rate 64 /min Trang Castillo HIDE CURER Work Phone: [facility] 08-16-2023 07:25-0500 SaO2% (BldA) [Mass fraction] 99 % Trang Castillo HIDE CURER Work Phone: [facility] 08-16-2023 07:25-0500 Systolic blood pressure 101 mm[Hg] Trang Castillo HIDE CURER Work Phone: [facility] 08-07-2023 08:03-0500 Body height 167.6 cm Sudha Cooperimore CNM Work Phone: [facility] 08-07-2023 08:03-0500 Body mass index (BMI) [Ratio] 30.67 kg/m2 Sudha Cooperimore CNM Work Phone: [facility] 08-07-2023 08:03-0500 Body weight 86.18 kg Sudha Cooperimore CNM Work Phone: [facility] 08-07-2023 08:03-0500 Diastolic blood pressure 83 mm[Hg] Sudha Cooperimore CNM Work Phone: [facility] 08-07-2023 08:03-0500 Heart rate 89 /min Sudha Waters CNM Work Phone: [facility] 08-07-2023 08:03-0500 Systolic blood pressure 124 mm[Hg] Sudha Waters CNM Work Phone: [facility] 07-30-2023 07:37-0500 Body temperature 98.49 [degF] CJ Hassmann DPM Work Phone: [facility] 07-30-2023 07:37-0500 Diastolic blood pressure 79 mm[Hg] CJ Hassmann DPM Work Phone: [facility] 07-30-2023 07:37-0500 Heart rate 68 /min CJ Hassmann DPM Work Phone: [facility] 07-30-2023 07:37-0500 Systolic blood pressure 123 mm[Hg] CJ Hassmann DPM Work Phone: [facility] 07-09-2023 08:01-0500 Body temperature 98.49 [degF] CJ Hassmann DPM Work Phone: [facility] 07-09-2023 08:01-0500 Diastolic blood pressure 73 mm[Hg] CJ Hassmann DPM Work Phone: [facility] 07-09-2023 08:01-0500 Heart rate 70 /min CJ Hassmann DPM Work Phone: [facility] 07-09-2023 08:01-0500 SaO2% (BldA) [Mass fraction] 98 % CJ Hassmann DPM Work Phone: [facility] 07-09-2023 08:01-0500 Systolic blood pressure 104 mm[Hg] CJ Hassmann DPM Work Phone: [facility] 06-21-2023 08:02-0400 Body height 165.1 cm Ana Tanner NP Work Phone: [facility] 06-21-2023 08:02-0400 Body mass index (BMI) [Ratio] 33.71 kg/m2 Ana McAvinew DRILLING ENGINEERING MANAGER Work Phone: [facility] 06-21-2023 08:02-0400 Body temperature 97.3 [degF] Ana Mianvinew DRILLING ENGINEERING MANAGER Work Phone: [facility] 06-21-2023 08:02-0400 Body weight 91.9 kg Ana Del Torow DRILLING ENGINEERING MANAGER Work Phone: [facility] 06-21-2023 08:02-0400 Diastolic blood pressure 83 mm[Hg] Ana Mianvinew DRILLING ENGINEERING MANAGER Work Phone: [facility] 06-21-2023 08:02-0400 Heart rate 67 /min Anasona Pappasvinew DRILLING ENGINEERING MANAGER Work Phone: [facility] 06-21-2023 08:02-0400 Respiratory rate 14 /min Ana Pappasvinew DRILLING ENGINEERING MANAGER Work Phone: [facility] 06-21-2023 08:02-0400 Systolic blood pressure 121 mm[Hg] Naa McAvinew DRILLING ENGINEERING MANAGER Work Phone: [facility] 04-18-2023 14:14-0400 Body height 165.1 cm Marbin Spieldenner HIDE CURER Work Phone: [facility] 04-18-2023 14:14-0400 Body mass index (BMI) [Ratio] 35.93 kg/m2 Marbin Spieldenner HIDE CURER Work Phone: [facility] 04-18-2023 14:14-0400 Body temperature 98.71 [degF] Marbin Spieldenner HIDE CURER Work Phone: [facility] 04-18-2023 14:14-0400 Body weight 97.93 kg Marbin Spieldenner HIDE CURER Work Phone: [facility] 04-18-2023 14:14-0400 Diastolic blood pressure 80 mm[Hg] Marbin Spieldenner HIDE CURER Work Phone: [facility] 04-18-2023 14:14-0400 Heart rate 60 /min Marbin Spieldenner HIDE CURER Work Phone: [facility] 04-18-2023 14:14-0400 Respiratory rate 15 /min Marbin Garciar HIDE CURER Work Phone: [facility] 04-18-2023 14:14-0400 SaO2% (BldA) [Mass fraction] 98 % Marbin Garciar HIDE CURER Work Phone: [facility] 04-18-2023 14:14-0400 Systolic blood pressure 111 mm[Hg] Marbin Garciar HIDE CURER Work Phone: [facility] 02-22-2023 08:00-0400 Body height 165.1 cm Ana Del Torow DRILLING ENGINEERING MANAGER Work Phone: [facility] 02-22-2023 08:00-0400 Body mass index (BMI) [Ratio] 38.74 kg/m2 Ana Pappasvinew DRILLING ENGINEERING MANAGER Work Phone: [facility] 02-22-2023 08:00-0400 Body temperature 97.3 [degF] Ana Pappasvinew DRILLING ENGINEERING MANAGER Work Phone: [facility] 02-22-2023 08:00-0400 Body weight 105.6 kg Ana Pappasvinew DRILLING ENGINEERING MANAGER Work Phone: [facility] 02-22-2023 08:00-0400 Diastolic blood pressure 86 mm[Hg] Ana Pappasvinew DRILLING ENGINEERING MANAGER Work Phone: [facility] 02-22-2023 08:00-0400 Heart rate 56 /min Ana Pappasvinew DRILLING ENGINEERING MANAGER Work Phone: [facility] 02-22-2023 08:00-0400 Respiratory rate 16 /min Aan Pappasvinew DRILLING ENGINEERING MANAGER Work Phone: [facility] 02-22-2023 08:00-0400 Systolic blood pressure 120 mm[Hg] Ana Pappasvinew DRILLING ENGINEERING MANAGER Work Phone: [facility] 01-07-2023 08:06-0400 Body height 165.1 cm Geraldine Michel [facility] 01-07-2023 08:06-0400 Body mass index (BMI) [Ratio] 42.43 kg/m2 Geraldine Michel [facility] 01-07-2023 08:06-0400 Body weight 115.67 kg Geraldine Michel MA [facility] 01-07-2023 08:06-0400 Diastolic blood pressure 84 mm[Hg] Geraldine Michel MA [facility] 01-07-2023 08:06-0400 Heart rate 64 /min Geraldine Michel MA [facility] 01-07-2023 08:06-0400 Systolic blood pressure 122 mm[Hg] Geraldine Michel MA [facility] 12-25-2022 08:42-0400 Body height 165.1 cm Rakesh Salazar MD Work Phone: [facility] 12-25-2022 08:42-0400 Body mass index (BMI) [Ratio] 43.2 kg/m2 Rakesh Salazar MD Work Phone: [facility] 12-25-2022 08:42-0400 Body temperature 97.5 [degF] Rakesh Salazar MD Work Phone: [facility] 12-25-2022 08:42-0400 Body weight 117.75 kg Rakesh Salazar MD Work Phone: [facility] 12-25-2022 08:42-0400 Diastolic blood pressure 75 mm[Hg] Rakesh Salazar MD Work Phone: [facility] 12-25-2022 08:42-0400 Heart rate 64 /min Rakesh Salazar MD Work Phone: [facility] 12-25-2022 08:42-0400 Respiratory rate 16 /min Rakesh Salazar MD Work Phone: [facility] 12-25-2022 08:42-0400 Systolic blood pressure 114 mm[Hg] Rakesh Salazar MD Work Phone: [facility] 11-27-2022 07:12-0400 Body height 165.1 cm Rakesh Salazar MD Work Phone: [facility] 11-27-2022 07:12-0400 Body mass index (BMI) [Ratio] 44.8 kg/m2 Rakesh Salazar MD Work Phone: [facility] 11-27-2022 07:12-0400 Body temperature 97.9 [degF] Rakesh Salazar MD Work Phone: [facility] 11-27-2022 07:12-0400 Body weight 122.11 kg Rakesh Salazar MD Work Phone: [facility] 11-27-2022 07:12-0400 Diastolic blood pressure 84 mm[Hg] Rakesh Salazar MD Work Phone: [facility] 11-27-2022 07:12-0400 Heart rate 69 /min Rakesh Salazar MD Work Phone: [facility] 11-27-2022 07:12-0400 Respiratory rate 18 /min Rakesh Salazar MD Work Phone: [facility] 11-27-2022 07:12-0400 SaO2% (BldA) [Mass fraction] 100 % Rakesh Salazar MD Work Phone: [facility] 11-27-2022 07:12-0400 Systolic blood pressure 120 mm[Hg] Rakesh Salazar MD Work Phone: [facility] 11-22-2022 09:14-0400 Body temperature 99.19 [degF] Rakesh Salazar MD Work Phone: [facility] 11-22-2022 09:14-0400 Diastolic blood pressure 85 mm[Hg] Rakesh Salazar MD Work Phone: [facility] 11-22-2022 09:14-0400 Heart rate 69 /min Rakesh Salazar MD Work Phone: [facility] 11-22-2022 09:14-0400 Respiratory rate 16 /min Rakesh Salazar MD Work Phone: [facility] 11-22-2022 09:14-0400 SaO2% (BldA) [Mass fraction] 100 % Rakesh Salazar MD Work Phone: [facility] 11-22-2022 09:14-0400 Systolic blood pressure 134 mm[Hg] Rakesh Salazar MD Work Phone: [facility] 11-21-2022 05:57-0400 Body height 165.1 cm Rakesh Salazar MD Work Phone: [facility] 11-21-2022 05:57-0400 Body mass index (BMI) [Ratio] 47.44 kg/m2 Rakesh Salazar MD Work Phone: [facility] 11-21-2022 05:57-0400 Body weight 129.32 kg Rakesh Salazar MD Work Phone: [facility] 11-06-2022 11:25-0500 Body height 165.1 cm Rakesh Salazar MD Work Phone: [facility] Comment on above: [facility] 11-06-2022 11:25-0500 Body mass index (BMI) [Ratio] 47.66 kg/m2 Rakesh Slaazar MD Work Phone: [facility] 11-06-2022 11:25-0500 Body temperature 98.29 [degF] Rakesh Salazar MD Work Phone: [facility] 11-06-2022 11:25-0500 Body weight 129.91 kg Rakesh Salazar MD Work Phone: [facility] 11-06-2022 11:25-0500 Diastolic blood pressure 81 mm[Hg] Rakesh Salazar MD Work Phone: [facility] 11-06-2022 11:25-0500 Heart rate 82 /min Rakehs Salazar MD Work Phone: [facility] 11-06-2022 11:25-0500 Respiratory rate 16 /min Rakesh Salazar MD Work Phone: [facility] 11-06-2022 11:25-0500 Systolic blood pressure 136 mm[Hg] Rakesh Salazar MD Work Phone: [facility] 11-01-2022 08:26-0500 Body mass index (BMI) [Ratio] 48.81 kg/m2 Sudha KRAFT Work Phone: [facility] 11-01-2022 08:26-0500 Body weight 133.04 kg Sudha Masimore CNM Work Phone: [facility] 11-01-2022 08:26-0500 Diastolic blood pressure 84 mm[Hg] Sudha Masimore CNM Work Phone: [facility] 11-01-2022 08:26-0500 Heart rate 67 /min Sudha Masimore CNM Work Phone: [facility] 11-01-2022 08:26-0500 Systolic blood pressure 130 mm[Hg] Sudha Masimore CNM Work Phone: [facility] 08-02-2022 08:03-0500 Body height 165.1 cm Sudha Masimore CNM Work Phone: [facility] 08-02-2022 08:03-0500 Body mass index (BMI) [Ratio] 49.01 kg/m2 Sudha Masimore CNM Work Phone: [facility] 08-02-2022 08:03-0500 Body weight 133.58 kg Sudha Masimore CNM Work Phone: [facility] 08-02-2022 08:03-0500 Diastolic blood pressure 75 mm[Hg] Sudha Masimore CNM Work Phone: [facility] 08-02-2022 08:03-0500 Heart rate 72 /min Sudha Masimore CNM Work Phone: [facility] 08-02-2022 08:03-0500 Systolic blood pressure 137 mm[Hg] Sudha Masimore CNM Work Phone: [facility] 04-06-2022 14:52-0400 Diastolic blood pressure 84 mm[Hg] Rakesh Salazar MD Work Phone: [facility] 04-06-2022 14:52-0400 Heart rate 74 /min Rakesh Salazar MD Work Phone: [facility] 04-06-2022 14:52-0400 Respiratory rate 18 /min Rakesh Salazar MD Work Phone: [facility] 04-06-2022 14:52-0400 SaO2% (BldA) [Mass fraction] 100 % Rakesh Salazar MD Work Phone: [facility] 04-06-2022 14:52-0400 Systolic blood pressure 127 mm[Hg] Rakesh Salazar MD Work Phone: [facility] 04-06-2022 14:32-0400 Body temperature 97.39 [degF] Rakesh Salazar MD Work Phone: [facility] 04-06-2022 13:05-0400 Body height 166.4 cm Rakesh Salazar MD Work Phone: [facility] 04-06-2022 13:05-0400 Body mass index (BMI) [Ratio] 49.65 kg/m2 Rakesh Salazar MD Work Phone: [facility] 04-06-2022 13:05-0400 Body weight 137.44 kg Rakesh Salazar MD Work Phone: [facility] 03-23-2022 11:34-0400 Respiratory rate 16 /min [facility] Work Phone: 03-23-2022 10:37-0400 Body height 165.1 cm [facility] Work Phone: 03-23-2022 10:37-0400 Body mass index (BMI) [Ratio] 50.5 kg/m2 [facility] Work Phone: 03-23-2022 10:37-0400 Body temperature 97.6 [degF] [facility] Work Phone: 03-23-2022 10:37-0400 Body weight 137.71 kg [facility] Work Phone: 03-23-2022 10:37-0400 Diastolic blood pressure 87 mm[Hg] [facility] Work Phone: 03-23-2022 10:37-0400 Heart rate 90 /min [facility] Work Phone: 03-23-2022 10:37-0400 SaO2% (BldA) [Mass fraction] 100 % [facility] Work Phone: 03-23-2022 10:37-0400 Systolic blood pressure 119 mm[Hg] [facility] Work Phone: 03-21-2022 11:16-0400 SaO2% (BldA) [Mass fraction] 97 % [facility] Work Phone: 03-21-2022 09:59-0400 Body temperature 99.6 [degF] [facility] Work Phone: 03-21-2022 09:59-0400 Diastolic blood pressure 87 mm[Hg] [facility] Work Phone: 03-21-2022 09:59-0400 Heart rate 96 /min [facility] Work Phone: 03-21-2022 09:59-0400 Respiratory rate 14 /min [facility] Work Phone: 03-21-2022 09:59-0400 Systolic blood pressure 143 mm[Hg] [facility] Work Phone: 03-21-2022 09:51-0400 Body height 165.1 cm [facility] Work Phone: 03-21-2022 09:51-0400 Body mass index (BMI) [Ratio] 50.5 kg/m2 [facility] Work Phone: 03-21-2022 09:51-0400 Body weight 137.71 kg [facility] Work Phone: 01-09-2022 14:34-0400 Body height 165.1 cm [facility] Work Phone: 01-09-2022 14:34-0400 Body mass index (BMI) [Ratio] 50.2 kg/m2 [facility] Work Phone: 01-09-2022 14:34-0400 Body temperature 98.5 [degF] [facility] Work Phone: 01-09-2022 14:34-0400 Body weight 136.98 kg [facility] Work Phone: 01-09-2022 14:34-0400 Diastolic blood pressure 95 mm[Hg] [facility] Work Phone: 01-09-2022 14:34-0400 Heart rate 86 /min [facility] Work Phone: 01-09-2022 14:34-0400 Respiratory rate 16 /min [facility] Work Phone: 01-09-2022 14:34-0400 SaO2% (BldA) [Mass fraction] 98 % [facility] Work Phone: 01-09-2022 14:34-0400 Systolic blood pressure 132 mm[Hg] [facility] Work Phone: 09-22-2021 11:10-0500 Diastolic blood pressure 79 mm[Hg] [facility] Work Phone: 09-22-2021 11:10-0500 Heart rate 72 /min [facility] Work Phone: 09-22-2021 11:10-0500 Respiratory rate 16 /min [facility] Work Phone: 09-22-2021 11:10-0500 SaO2% (BldA) [Mass fraction] 100 % [facility] Work Phone: 09-22-2021 11:10-0500 Systolic blood pressure 139 mm[Hg] [facility] Work Phone: 09-22-2021 09:32-0500 Body mass index (BMI) [Ratio] 44.9 kg/m2 [facility] Work Phone: 09-22-2021 09:32-0500 Body temperature 98.2 [degF] [facility] Work Phone: 09-22-2021 09:32-0500 Body weight 122.46 kg [facility] Work Phone: Encounters Encounter Date Encounter Type Care Provider Facility Start: 07-05-2025 End: 07-08-2025 Evaluation and management of inpatient RICKIE SANCHEZ Facility:[facility] Start: 06-28-2025 End: 06-28-2025 ambulatory RICKIE SANCHEZ Facility:[facility] Start: 06-25-2025 End: 06-25-2025 Office outpatient visit 25 minutes Obdulia Garcia MD Work Phone: [facility] Comment on above: BMI 32.0-32.9,adult (Primary Dx); Class 1 obesity due to excess calories with serious comorbidity and body mass index (BMI) of 32.0 to 32.9 in adult; S/P bariatric surgery; Other specified intestinal malabsorption (HHS/HCC); Deficiency of multiple nutrient elements Start: 06-25-2025 End: 06-25-2025 ambulatory [facility] Start: 06-23-2025 End: 06-23-2025 ambulatory [facility] Facility:[facility] Start: 06-23-2025 End: 06-23-2025 ambulatory [facility] Facility:[facility] Start: 06-23-2025 Encounter for other preprocedural examination ASPEN MARTINEZ [facility] Start: 06-18-2025 ambulatory [facility] Facility:[facility] Start: 05-06-2025 End: 05-11-2025 Admission to same day surgery center Rickie Sanchez MD Work Phone: [facility] Comment on above: [facility] Start: 05-06-2025 End: 05-11-2025 ambulatory Rickie Sanchez MD Work Phone: [facility] Start: 05-05-2025 End: 05-05-2025 Office outpatient visit 15 minutes Obdulia Garcia MD Work Phone: [facility] [place] Comment on above: BMI 32.0-32.9,adult (Primary Dx); Class 1 obesity due to excess calories with serious comorbidity and body mass index (BMI) of 32.0 to 32.9 in adult; S/P bariatric surgery; Other specified intestinal malabsorption; Deficiency of multiple nutrient elements Start: 05-05-2025 End: 05-05-2025 ambulatory CEM SHEETS [facility] Start: 05-04-2025 End: 05-06-2025 Telephone encounter Rickie Sanchez MD Work Phone: [facility] Comment on above: Patient Question Start: 04-15-2025 End: 04-15-2025 Nursing evaluation of patient and report Nurse Mold Yard Supervisor [facility] Work Phone: OB/Gynecology Comment on above: Encounter for survei llance of other contraceptive (Primary Dx) Start: 04-15-2025 End: 04-15-2025 ambulatory Imaxio Facility:[facility] Start: 04-01-2025 End: 06-01-2025 Follow-up encounter See Velasquez MD Work Phone: [facility] Cardiology - [place] [place] Comment on above: Cardiac holter monit or (3-7 days) Start: 03-20-2025 End: 03-22-2025 Refill Daniel Olivo APRN.CNM Work Phone: OB/Gynecology Comment on above: Refill Request Start: 03-12-2025 End: 03-12-2025 ambulatory Imaxio Facility:[facility] Start: 03-09-2025 End: 03-10-2025 ambulatory Shasta Yuen PA-C Work Phone: [facility] Comment on above: Shakes and weakness while exercising Start: 03-02-2025 End: 03-16-2025 Admission to same day surgery center Rickie Sanchez MD Work Phone: [facility] Comment on above: Chiari Surgery dates Start: 03-02-2025 End: 03-16-2025 ambulatory Rickie Sanchez MD Work Phone: [facility] Start: 02-24-2025 End: 02-24-2025 Admission to same day surgery center Rickie Sanchez MD Work Phone: [facility] Comment on above: Decision for Surgery Start: 02-24-2025 End: 02-24-2025 ambulatory Rickie Sanchez MD Work Phone: [facility] Start: 02-23-2025 End: 02-23-2025 Telemedicine consultation with patient Rickie Sanchez MD Work Phone: [facility] Start: 02-23-2025 End: 02-23-2025 ambulatory Rickie Sanchez MD Work Phone: [facility] Comment on above: Chiari I malformatio n (HCC) (Primary Dx) Start: 02-22-2025 End: 02-22-2025 Patient encounter procedure Dnaiel Olivo APRN.JUAN Work Phone: OB/Gynecology Comment on above: Encounter for gyneco logical examination (general) (routine) without abnormal findings (Primary Dx) Start: 02-22-2025 End: 02-22-2025 Patient encounter status Daniel Claystuart SOLID WASTE MANAGEMENT ENGINEER.CNM Work Phone: [facility] Start: 02-22-2025 End: 02-22-2025 ambulatory DANIEL OLIVO Facility:[facility] Start: 02-22-2025 Encounter for gynecological examination (general) (routine) without abnormal findings DANIEL OLIVO [facility] Start: 02-17-2025 End: 02-17-2025 Office outpatient visit 25 minutes Obdulia Garcia MD Work Phone: [facility] [place] Comment on above: S/P bariatric surger y (Primary Dx); Other specified intestinal malabsorption; Deficiency of multiple nutrient elements; Vitamin deficiency; Class 1 obesity due to excess calories with serious comorbidity and body mass index (BMI) of 31.0 to 31.9 in adult; BMI 31.0-31.9,adult Start: 02-17-2025 End: 02-17-[address] [facility] Start: 01-28-2025 End: 01-28-2025 ambulatory Cem Boggs DO Work Phone: [facility] Start: 01-28-2025 End: 01-28-2025 Follow-up encounter Cem Boggs DO Work Phone: [facility] Comment on above: ED Follow-up ([facility] 01/27/2025) Start: 01-27-2025 End: 01-27-2025 Emergency department patient visit Dr. Cem Boggs DO Work Phone: -Emergency Department Work Phone: Start: 01-21-2025 End: 01-21-2025 ambulatory CEM BOGGS Facility:[facility] Start: 12-31-2024 End: 01-04-2025 Follow-up encounter Shasta Yuen PA-C Work Phone: [facility] Start: 12-21-2024 ambulatory SHASTA Scruggs y:[facility] Start: 12-21-2024 End: 12-21-2024 Subsequent hospital visit by physician Mri [employer] [facility] (I-Stat/1.5t) Work Phone: Radiology Comment on above: Chiari I malformatio n (HCC) [G93.5] Start: 12-08-2024 End: 12-08-2024 ambulatory Shasta Yuen PA-C Work Phone: [facility] Comment on above: Chiari I malformatio n (HCC) (Primary Dx); Chiari malformation type I (HCC) Start: 12-08-2024 End: 12-08-2024 Telemedicine consultation with patient Shasta Yuen PA-C Work Phone: [facility] Start: 11-04-2024 End: 11-04-2024 Telephone encounter Edie Powers MD Work Phone: [facility] Plastic Surgery - [facility] Comment on above: Surgery Scheduling ( [facility]) Start: 10-29-2024 End: 10-29-2024 Nursing evaluation of patient and report Nurse Mold Yard Supervisor [facility] Work Phone: OB/Gynecology Comment on above: Encounter for manage ment and injection of depo-Provera (Primary Dx) Start: 10-29-2024 End: 10-29-2024 ambulatory CEM C SHEETS Facility:[facility] Start: 10-10-2024 End: 12-10-2024 Follow-up encounter Cem Boggs DO Work Phone: [facility] Start: 10-09-2024 End: 10-09-2024 ambulatory CEM C SHEETS Facility:[facility] Start: 10-08-2024 End: 10-08-2024 Telephone encounter Cem Boggs DO Work Phone: [facility] Comment on above: Lab Orders Start: 09-30-2024 End: 09-30-2024 Admission to same day surgery center Edie Powers MD Work Phone: [facility] Plastic Surgery - [facility] Start: 09-30-2024 End: 09-30-2024 Office outpatient new 30 minutes Edie Powers MD Work Phone: [facility] Plastic [facility] Comment on above: Excessive skin and s ubcutaneous tissue (Primary Dx); Acquired generalized lipodystrophy; History of morbid obesity Start: 09-30-2024 End: 09-30-2024 ambulatory Edie Powers MD Work Phone: [facility] Plastic Surgery - [facility] Start: 09-21-2024 End: 09-21-2024 Telephone encounter Michelle Adams [facility] L[facility] Delivery Comment on above: Insurance Authorizat ion (EMGALITY ); EMGALITY Start: 09-11-2024 End: 09-11-2024 ambulatory ASPEN MARTINEZ Facility:[facility] Start: 09-11-2024 End: 09-11-2024 Patient encounter procedure Aspen Martinez APRN.HIDE CURER Work Phone: Neurology Comment on above: Migraine with aura a nd without status migrainosus, not intractable (Primary Dx); Chiari malformation type I (HCC) Start: 09-07-2024 End: 09-07-2024 Subsequent hospital visit by physician See Velasquez MD Work Phone: [facility] Comment on above: Tachycardia Start: 09-07-2024 End: 09-07-2024 ambulatory [facility] Start: 08-31-2024 End: 08-31-2024 Office outpatient new 45 minutes See Velasquez MD Work Phone: [facility] Cardiology - [place] Comment on above: Tachycardia (Primary Dx); Orthostatic hypotension; History of Tonio-en-Y gastric bypass; Syncope and collapse Start: 08-31-2024 End: 08-31-2024 ambulatory [employer] [facility] Start: 08-06-2024 End: 08-06-2024 ambulatory CEM BOGGS Facility:[facility] Start: 08-06-2024 End: 08-06-2024 Nursing evaluation of patient and report Nurse Mold Yard Supervisor [facility] Work Phone: OB/Gynecology Comment on above: Encounter for manage ment and injection of depo-Provera (Primary Dx) Start: 08-02-2024 End: 08-03-2024 ambulatory Rimma Panda APRN.HIDE CURER Work Phone: Neurology Comment on above: Possible POTS and Ta chycardia Episodes Start: 07-10-2024 End: 07-10-2024 Telephone encounter Cem Boggs DO Work Phone: [facility] Comment on above: Lab Orders Start: 06-17-2024 End: 06-17-2024 Office outpatient visit 25 minutes Obdulia Garcia MD Work Phone: [facility] [place] Comment on above: S/P bariatric surger y (Primary Dx); Other specified intestinal malabsorption; Deficiency of multiple nutrient elements; BMI 29.0-29.9,adult; Overweight (BMI 25.0-29.9) Start: 06-02-2024 End: 06-02-2024 ambulatory Cem C Sheets DO Work Phone: [facility] Comment on above: Near Fainting Spell today Start: 06-02-2024 End: 06-02-2024 Telephone encounter Cem C Sheets DO Work Phone: [facility] Start: 05-27-2024 End: 06-02-2024 ambulatory Cem C Sheets DO Work Phone: [facility] Comment on above: Pressure Behind Eyes Start: 05-13-2024 End: 05-13-2024 Nursing evaluation of patient and report Nurse Mold Yard Supervisor [facility] Work Phone: OB/Gynecology Comment on above: Encounter for manage ment and injection of depo-Provera (Primary Dx) Start: 05-11-2024 End: 05-11-2024 Telephone encounter Cem C Sheets DO Work Phone: [facility] Comment on above: Lab Orders Start: 05-01-2024 End: 05-01-2024 Patient encounter procedure Rimma Panda APRN.CNP Work Phone: Neurology Comment on above: Syncope, unspecified syncope type (Primary Dx); Orthostatic lightheadedness; Tachycardia; Near syncope Start: 04-24-2024 End: 04-24-2024 Patient encounter procedure Aspen Martinez APRN.CNP Work Phone: Neurology Comment on above: APPOINTMENT CANCELLE D (Primary Dx) Start: 04-24-2024 End: 04-24-2024 Telemedicine consultation with patient Aspen Martinez APRN.CNP Work Phone: Neurology Start: 04-13-2024 End: 04-13-2024 Patient encounter procedure Cem C Sheets DO Work Phone: [facility] Comment on above: Syncope, unspecified syncope type (Primary Dx); Tremors of nervous system; Idiopathic hypotension; Anxiety and depression; Obesity, Class I, BMI 30-34.9 Start: 04-13-2024 End: 04-13-2024 ambulatory CEM BOGGS Facility:[facility] Start: 04-10-2024 ambulatory Cem Cedeno She ets DO Work Phone: [facility] Comment on above: Fainting Spells Agai n Start: 04-05-2024 ambulatory Cem Cedeno She ets DO Work Phone: [facility] Comment on above: Shakiness/Trembling in Hands Start: 03-11-2024 ambulatory Cem Cedeno She ets DO Work Phone: [facility] Comment on above: Albuterol Inhaler Start: 03-04-2024 End: 03-04-2024 Emergency department patient visit Cem Boggs Facility:[facility] Start: 02-28-2024 End: 02-28-2024 ambulatory Brannon Sainz MD Work Phone: Hematology/Oncology Comment on above: Thrombocytopenia (HC C) (Primary Dx); Leukopenia, unspecified type Start: 02-28-2024 End: 02-28-2024 Patient encounter procedure Brannon Sainz MD Work Phone: Hematology/Oncology Start: 02-19-2024 End: 02-19-2024 Patient encounter procedure Daniel Olivo SOLID WASTE MANAGEMENT ENGINEER.CNM Work Phone: OB/Gynecology Comment on above: Encounter for gyneco logical examination (general) (routine) with abnormal findings (Primary Dx); Vaginismus; Pelvic floor tension Start: 02-19-2024 End: 02-19-2024 Patient encounter status Daniel Olivo SOLID WASTE MANAGEMENT ENGINEER.CNM Work Phone: [facility] Work Phone: Start: 02-18-2024 End: 02-18-2024 ambulatory Kristie Rosenthal PT Work Phone: [facility] Comment on above: Imbalance (Primary D x); Migraine with aura and without status migrainosus, not intractable; Posture abnormality; Dizziness Start: 02-14-2024 End: 02-14-2024 ambulatory Kristie Rosenthal PT Work Phone: [facility] Comment on above: Imbalance (Primary D x); Migraine with aura and without status migrainosus, not intractable; Posture abnormality; Dizziness Start: 02-07-2024 End: 02-07-2024 ambulatory Kristie Rosenthal PT Work Phone: [facility] Comment on above: Imbalance (Primary D x); Migraine with aura and without status migrainosus, not intractable; Posture abnormality; Dizziness Start: 02-05-2024 Telephone encounter Cem Boggs DO Work Phone: [facility] Comment on above: Results New Patient Start: 02-05-2024 End: 02-05-2024 Patient encounter procedure Cem Cedeno Sheets DO Work Phone: [facility] Comment on above: Well adult exam ([facility] Dx); Leukopenia, unspecified type; Mild intermittent asthma, uncomplicated; Obesity, Class I, BMI 30-34.9 Start: 02-05-2024 End: 02-05-2024 Patient encounter status Cem Cedeno Sheets DO Work Phone: [facility] Work Phone: Start: 01-29-2024 End: 01-29-2024 ambulatory Kristie Rosenthal PT Work Phone: [facility] Comment on above: Posture abnormality (Primary Dx); Migraine with aura and without status migrainosus, not intractable; Imbalance; Dizziness Start: 01-23-2024 Telephone encounter Yomi mckay RN Work Phone: [facility] Home Delivery Comment on above: Insurance Authorizat ion (Emgality 120MG/ML auto-injectors (migraine)/) Start: 01-21-2024 End: 01-21-2024 Patient encounter procedure Aspen Martinez APRN.HIDE CURER Work Phone: Neurology Comment on above: Migraine with aura a nd without status migrainosus, not intractable (Primary Dx); Imbalance; Cervicalgia Start: 12-11-2023 End: 12-11-2023 Subsequent hospital visit by physician [facility] (1.5t) [facility] Comment on above: Migraine with aura a nd without status migrainosus, not intractable [G43.109] Start: 11-26-2023 End: 03-09-2024 Telephone encounter David De Los Santos MD Work Phone: [facility] Comment on above: Appointment Request Start: 11-26-2023 End: 11-26-2023 Office outpatient visit 25 minutes Rakesh Salazar MD Work Phone: [facility] [place] Comment on above: Excess skin (Primary Dx); Intestinal malabsorption, unspecified type; Deficiency of multiple nutrient elements; GERD without esophagitis; BMI 29.0-29.9,adult Start: 11-25-2023 End: 11-25-2023 Subsequent hospital visit by physician Sada Torrez APRN - HIDE CURER Work Phone: [facility] Comment on above: RUQ abdominal pain Start: 11-20-2023 Get Medical Advice Alex seals SOLID WASTE MANAGEMENT ENGINEER.HIDE CURER Work Phone: [facility] Comment on above: UBRELVY Refill Start: 11-15-2023 ambulatory Alex Cummins APR N.HIDE CURER Work Phone: [facility] Start: 11-15-2023 Follow-up encounter Alex Cummins APRN.HIDE CURER Work Phone: Neurology [facility] Comment on above: Topamax Follow-Up: D ose Level 2 Start: 11-11-2023 ambulatory Alex Cummins APR N.HIDE CURER Work Phone: [facility] Comment on above: Topamax Update Start: 11-09-2023 End: 11-09-2023 Emergency department patient visit MARIA ELENA HALL [facility] Start: 11-07-2023 End: 11-07-2023 Patient encounter procedure Alex Cummins SOLID WASTE MANAGEMENT ENGINEER.HIDE CURER Work Phone: Neurology [facility] Comment on above: Migraine with aura a nd without status migrainosus, not intractable (Primary Dx) Start: 11-05-2023 End: 11-05-2023 ambulatory ZARIA FLANNERYE AMALIA [facility] Start: 11-05-2023 End: 11-05-2023 Office outpatient visit 10 minutes Zaria Farnaz Amalia HIDE CURER Work Phone: [facility] Comment on above: Syncope, unspecified syncope type (Primary Dx) Start: 10-29-2023 ambulatory Alex SandersHIDE CURER Work Phone: Neurology Headache [facility] Comment on above: Recent Upticks in [place] graine Headaches Start: 10-28-2023 End: 11-01-2023 ambulatory DIANA QUARLES [facility] Start: 09-17-2023 End: 09-18-2023 ambulatory [facility] Start: 09-10-2023 End: 09-11-2023 ambulatory [facility] Start: 09-09-2023 End: 09-09-2023 ambulatory TRANG CASTILLO [facility] Start: 09-09-2023 End: 09-09-2023 Office outpatient new 45 minutes Trang Castillo HIDE CURER Work Phone: [facility] Comment on above: Abnormal EKG (Primar y Dx); Syncope, unspecified syncope type Start: 08-20-2023 End: 08-24-2023 ambulatory IZABELA MARLEY RIVERO [facility] Start: 08-20-2023 End: 08-20-2023 Office outpatient visit 15 minutes SINCERE Cormier DPM Work Phone: [facility] Comment on above: Closed fracture of l eft ankle with routine healing, subsequent encounter (Primary Dx); Sprain of left ankle, unspecified ligament, initial encounter; Acute left ankle pain Start: 08-16-2023 End: 08-20-2023 Orders Only Trang Castillo HIDE CURER Work Phone: [facility] Comment on above: Thrombocytopenia (HC C) (Primary Dx) Start: 08-16-2023 End: 08-16-2023 Office outpatient visit 15 minutes Trang Judge Jonathan GOODMAN Work Phone: [facility] Comment on above: Syncope, unspecified syncope type (Primary Dx) Start: 08-13-2023 ambulatory [facility] Start: 08-07-2023 End: 08-07-2023 ambulatory [facility] Start: 08-07-2023 End: 08-07-2023 Encounter for gynecological examination (general) (routine) without abnormal findings SUDHA COOPERDARLINE [facility] Start: 08-07-2023 End: 08-07-2023 Patient encounter procedure Sudha Cooperhectordarline CNM Work Phone: [facility] Work Phone: Start: 08-07-2023 End: 08-07-2023 Periodic preventive med est patient 18-39 yrs Sudha Manasa KRAFTM Work Phone: [facility] Ob[facility] Gynecology Comment on above: Encounter for well w margaret exam with routine gynecological exam (Primary Dx); Vaginal discharge Start: 07-30-2023 End: 08-03-2023 ambulatory [facility] Start: 07-30-2023 End: 07-30-2023 Office outpatient visit 15 minutes SINCERE Cormier DPM Work Phone: [facility] Comment on above: Closed fracture of l eft ankle with routine healing, subsequent encounter (Primary Dx); Closed fracture of posterior malleolus of left tibia with routine healing, subsequent encounter; Sprain of left ankle, unspecified ligament, initial encounter; Acute left ankle pain Start: 07-09-2023 End: 07-13-2023 ambulatory [facility] Start: 07-09-2023 End: 07-09-2023 Office outpatient new 30 minutes SINCERE Cormier DPM Work Phone: [facility] Comment on above: Closed fracture of l eft ankle, initial encounter (Primary Dx); Closed fracture of posterior malleolus of left tibia, initial encounter; Sprain of left ankle, unspecified ligament, initial encounter; Acute left ankle pain Start: 07-04-2023 End: 07-04-2023 Emergency department patient visit АЛЕКСАНДР CONNOLLYCAERIK [facility] Start: 06-22-2023 ambulatory Alex Francisco.HIDE CURER Work Phone: [facility] Comment on above: Migraine Medication Options Start: 06-21-2023 End: 06-21-2023 Office outpatient visit 25 minutes Ana Tanner DRILLING ENGINEERING MANAGER Work Phone: [facility] [place] Comment on above: GERD without esophag itis (Primary Dx); Intestinal malabsorption, unspecified type; Deficiency of multiple nutrient elements; Class 1 obesity due to excess calories with body mass index (BMI) of 33.0 to 33.9 in adult, unspecified whether serious comorbidity present; Hx of gastric bypass Start: 06-17-2023 Telephone encounter Alaina Bolanos RD [facility] [place] Comment on above: Abnormal Lab (High V itamin B12, Vitamin D, Ferritin ) Start: 06-08-2023 ambulatory Alex Francisco.HIDE CURER Work Phone: [facility] Comment on above: No Filter [place] ringes with Migraine Medication Start: 05-31-2023 Telephone encounter Alex Cummins APRN.HIDE CURER Work Phone: [facility] Comment on above: Medication Problem Start: 05-29-2023 End: 05-29-2023 Emergency department patient visit BIANKA LEYVA ANDRADE [facility] Start: 04-18-2023 End: 04-18-2023 ambulatory [facility] Ambulatory Start: 04-18-2023 End: 04-18-2023 Office outpatient visit 25 minutes Marbin Green HIDE CURER Work Phone: [facility] Comment on above: Acute left-sided low back pain without sciatica (Primary Dx); Cervicogenic headache Start: 03-25-2023 End: 03-29-2023 [facility] Start: 02-22-2023 End: 02-22-2023 Office outpatient visit 25 minutes Ana Tanner DRILLING ENGINEERING MANAGER Work Phone: Weight [facility] [place] Comment on above: GERD without esophag itis (Primary Dx); Intestinal malabsorption, unspecified type; Deficiency of multiple nutrient elements; Class 2 obesity due to excess calories without serious comorbidity with body mass index (BMI) of 38.0 to 38.9 in adult Start: 02-15-2023 End: 02-19-2023 ambulatory [facility] Start: 01-17-2023 Patient encounter status Ani Green [facility] Work Phone: [facility] Work Phone: Start: 01-17-2023 End: 01-17-2023 ambulatory [facility] Start: 01-17-2023 End: 01-17-2023 Encounter for general adult medical examination without abnormal findings [facility] Ambulatory Start: 01-07-2023 End: 01-07-2023 Documentation procedure Sudha KRAFT Work Phone: [facility] Obstetrics Comment on above: Encounter for survei llance of injectable contraceptive (Primary Dx) Start: 01-07-2023 End: 01-07-2023 ambulatory [facility] Start: 12-25-2022 End: 12-25-2022 Postop follow up visit related to original px Rakesh Salazar MD Work Phone: [facility] [place] Comment on above: GERD without esophag itis (Primary Dx); Slow transit constipation; Deficiency of multiple nutrient elements; Intestinal malabsorption, unspecified type; Morbid obesity with BMI of 40.0-44.9, adult ([facility]) Start: 12-18-2022 End: 12-22-2022 [facility] Start: 11-27-2022 End: 11-27-2022 Postop follow up visit related to original px Rakesh Salazar MD Work Phone: Weight [facility] [place] Comment on above: Oral candidiasis (Pr imary Dx); Deficiency of multiple nutrient elements; Intestinal malabsorption, unspecified type; Morbid obesity with BMI of 40.0-44.9, adult ([facility]) Start: 11-22-2022 End: 11-22-2022 Evaluation and management of inpatient Ach Fl Exam Room 2 [facility] X-Ray Comment on above: Arrived Start: 11-21-2022 End: 11-21-2022 Evaluation and management of inpatient Tan Goff MD Work Phone: [facility] MAIN OR Start: 11-21-2022 End: 11-22-2022 Evaluation and management of inpatient Rakesh Salazar MD Work Phone: [facility] H6 TELEMETRY Comment on above: Morbid obesity with BMI of 45.0-49.9, adult (CMS/HCC) (HCC) (Primary Dx); Morbid (severe) obesity due to excess calories (HCC) Start: 11-13-2022 Telephone encounter Starr chapa RD Work Phone: [facility] [place] Start: 11-09-2022 Telephone encounter Starr chapa RD Work Phone: [facility] [place] Comment on above: Abnormal Lab (Elevat ed potassium) Start: 11-06-2022 End: 11-06-2022 Transcribe Orders Sada Torrez SOLID WASTE MANAGEMENT ENGINEER - HIDE CURER Work Phone: [facility] [address] [facility] Comment on above: Morbid (severe) obes ity due to excess calories (HCC) (Primary Dx) Morbid obesity due t o excess calories (HCC); GERD without esophagitis; Pre-operative laboratory examination; Pre-diabetes Morbid obesity with BMI of 45.0-49.9, adult (CMS/HCC) (HCC) (Primary Dx) Start: 11-06-2022 End: 11-06-2022 Patient encounter status Ach 1 [facility] [address] X-r ay Start: 11-06-2022 End: 11-06-2022 Office outpatient visit 25 minutes Rakesh Salazar MD Work Phone: [facility] [place] Comment on above: Morbid obesity with BMI of 45.0-49.9, adult (CMS/HCC) (HCC) Start: 11-01-2022 End: 11-01-2022 Clinical Support Sudha Waters CNM Work Phone: [facility] Ob[facility]etric[facility] Gynecology Comment on above: Encounter for survei llance of injectable contraceptive (Primary Dx) Nutrition Counseling (Pre op diet) Start: 10-31-2022 ambulatory Kristen Jimenez RN [facility] Clinical Communication Start: 10-31-2022 Patient encounter procedure Kristen Jimenez RN [facility] Clinical Communication Start: 10-30-2022 Telephone encounter Miguelina Francisco [facility] [place] Comment on above: Anticoagulation (Seth enox) Start: 08-02-2022 End: 08-02-2022 Office outpatient new 30 minutes Sudha Goel Jt [facility] Work Phone: [facility] Obstetrics and Gynecology Comment on above: Abnormal menses (Silvia luke Dx); Encounter for initial prescription of injectable contraceptive Start: 06-27-2022 ambulatory [facility] Start: 06-27-2022 End: 06-27-2022 Subsequent hospital visit by physician Obdulia Garcia MD Work Phone: [facility] [place] [facility] Start: 05-23-2022 ambulatory [facility] Start: 05-23-2022 End: 05-23-2022 Subsequent hospital visit by physician Obdulia Garcia MD Work Phone: [facility] [place] [facility] Start: 04-10-2022 End: 04-10-2022 Subsequent hospital visit by physician Claudine Ambrosio SOLID WASTE MANAGEMENT ENGINEER - DRILLING ENGINEERING MANAGER Work Phone: [facility] [address] [facility] Ultrasound Comment on above: Generalized abdomina l pain Start: 04-06-2022 ambulatory [facility] Start: 04-06-2022 End: 04-07-2022 ambulatory Steven Rashid [facility] Start: 04-06-2022 End: 04-06-2022 Subsequent hospital visit by physician Rakesh Salazar MD Work Phone: [facility] Endoscopy Comment on above: Arrived Start: 03-23-2022 End: 03-23-2022 Emergency department patient visit [facility]gency [facility] Start: 03-21-2022 ambulatory OBDULIA GARCIA [facility] Start: 03-21-2022 End: 03-21-2022 Emergency department patient visit [facility]gency [facility] Start: 03-07-2022 ambulatory UNKNOWN PROVIDER [facility] Start: 03-07-2022 End: 03-07-2022 Subsequent hospital visit by physician Rakesh Salazar MD Work Phone: [facility] Dept Start: 02-20-2022 End: 02-20-2022 Subsequent hospital visit by physician Rakesh Salazar MD Work Phone: [facility] Dept Start: 01-09-2022 End: 01-09-2022 Emergency department patient visit [facility]Emergency [facility] Start: 09-22-2021 End: 09-22-2021 Patient encounter procedure [facility]-Radiology, [facility] Start: 09-14-2021 End: 09-14-2021 Patient encounter procedure [facility]-MRI - [facility] Procedures Date Procedure Procedure Detail Performing Clinician Start: 07-05-2025 Antibody screen ASPEN MARTINEZ Comment on above: Order Comment: Speci men Type: BLOOD SPECIMENOrdering Facility: [facility] Address: [address] [place] [address] Performed By: #### T SCR ####[facility] LABCLIA [id number] [place] [address] [place] Start: 01-27-[address] Cem Boggs DO Work Phone: Start: 12-21-2024 Mri spinal canal cer vical w/o contrast matrl Shasta Yuen PA-C Work Phone: Start: 08-31-2024 History of gastroint estinal tract bypass History of Tonio-en-Y gastric bypass See Velasquez MD Work Phone: Start: 08-31-2024 Ecg routine ecg w/le ast 12 lds w/i&r See Velasquez MD Work Phone: Start: 02-19-2024 UA DIP,URINE HCG (POC) Daniel Olivo APRNCaterinaCNM Work Phone: Start: 12-11-2023 Mri brain brain stem w/o w/contrast material Alex uCmmins SOLID WASTE MANAGEMENT ENGINEER.HIDE CURER Work Phone: Start: 11-25-2023 Us abdominal real ti me w/image documentation Sada Torrez SOLID WASTE MANAGEMENT ENGINEER - HIDE CURER Work Phone: Start: 08-07-2023 Iadna loni specie s direct probe tq Sudha Waters CNM Work Phone: Start: 08-07-2023 Microscopic observat ion [Identifier] in Cervix by Cyto stain SINCERE Cormier DPM Work Phone: Start: 07-30-2023 Follow-up visit Follow-up DUSTIN CORMIER II Start: 01-17-2023 Adult depression scr eening assessment Marbin Peter [facility] Work Phone: Start: 11-22-2022 Radiologic exam upr gi trc single contrast study David Garcia MD Work Phone: Start: 11-22-2022 Basic metabolic pane l calcium total David Garcia MD Work Phone: Start: 11-21-2022 Basic metabolic pane l calcium total David Garcia MD Work Phone: Start: 11-21-2022 Level v surg patholo gy gross&microscopic exam Rakesh Salazar MD Work Phone: Start: 11-21-2022 CA AN ELECTIVE ENDOT SAE AIRWAY David Cason FILAMENT MAKER Start: 11-21-2022 End: 11-21-2022 Laps gstr rstcv px w/byp tonio-en-y limb <150 cm Rakesh Salazar MD Work Phone: Start: 11-21-2022 End: 11-21-2022 Unlis laparoscopic procedure liver Rakesh Salazar MD Work Phone: Start: 11-21-2022 Tap block bilateral by injection(s) Idris Benitez SOLID WASTE MANAGEMENT ENGINEER - FILAMENT MAKER Work Phone: Start: 11-21-2022 Urine test visual color cmprsn meths Faith Moore MD Work Phone: Start: 11-06-2022 Radiologic exam ches t 2 views Sada R Lore SOLID WASTE MANAGEMENT ENGINEER - HIDE CURER Work Phone: Start: 08-02-2022 Urine test visual color cmprsn meths Sudha Waters CNM Work Phone: Start: 04-10-2022 Us abdominal real ti me w/image documentation Claudinelesli Phillips Hebert SOLID WASTE MANAGEMENT ENGINEER - DRILLING ENGINEERING MANAGER Work Phone: Start: 04-10-2022 Lipid 1996 panel - S ricki or Plasma Starr Gillespie RD Work Phone: Start: 04-06-2022 ENDOSCOPY REPORT Phy sician Generic Start: 09-22-2021 End: 09-22-2021 Bacterial culture Start: 09-22-2021 Investigation of transfusion reaction Start: 09-22-2021 Dx Lumbar Puncture w /IMG Guide Start: 09-14-2021 MRI of brain with contrast Start: 09-14-2021 MRI of head History of gastroint estinal tract bypass History of Tonio-en-Y gastric bypass Dr. Cem Boggs DO Work Phone: SARS-CoV-2 & FLU Ant igen (Rapid) Plan of Treatment Date Care Activity Detail Author Start: 2070 RSV Immunization for Adults (1 - 1-dose 75+ series) RSV Immunization for Adults (1 - 1-dose 75+ series) [facility] Start: 2055 RSV Immunization aged 60 or older (1 - 1-dose 60+ series) RSV Immunization aged 60 or older (1 - 1-dose 60+ series) [facility] Start: 2045 Zoster Vaccines (1 of 2) Zoster Vaccines (1 of 2) [facility] Start: 01-17-2033 DTaP/Tdap/Td Vaccines (8 - Td or Tdap) DTaP/Tdap/Td Vaccines (8 - Td or Tdap) [facility] Start: 01-17-2033 Tetanus vaccination Tetanus: Every 10yrs [facility] Start: 01-17-2033 Urine microalbumin profile DTaP,Tdap,Td Vaccine (8 - Td or Tdap) [facility] Start: 04-10-2027 Lipid panel Lipid Panel [facility] Start: 08-07-2026 Screening for malignant neoplasm of cervix [facility] Start: 02-23-2026 End: 02-23-2026 Patient encounter procedure 02/23/2026 8:15 AM EDT Office Visit OB/Gynecology [address] [place] [address] Daniel Olivo APRN.CNM [address] [place] [address] Annual OB/Gynecology Comment on above: Annual Start: 11-01-2025 Depression Monitoring Depression Monitoring [facility] Start: 07-08-2025 End: 07-08-2025 Nursing evaluation of patient and report 07/08/2025 4:00 PM EST Nurse Visit OB/Gynecology [address] [place] [address] Wstr, Nurse Mold Yard Supervisor [facility] [address] [place] [address] [facility] OB/Gynecology Comment on above: Depo Start: 06-25-2025 End: 06-25-2025 Patient encounter procedure 06/25/2025 9:30 AM EDT Office Visit [facility] [place] [address] Obdulia Garcia MD [address] [facility] [address] [place] [address] [facility] [place] Start: 06-02-2025 Diabetes mellitus screening Diabetes Screening [facility] Start: 05-03-2025 COVID-19 Vaccine ( season) COVID-19 Vaccine ( season) [facility] Start: 05-03-2025 Influenza vaccination Influenza Vaccine (#1) Narciso cedeno Start: 04-15-2025 End: 04-15-2025 Nursing evaluation of patient and report 04/15/2025 4:00 PM EDT Nurse Visit OB/Gynecology [address] [place] [address] Wstr, Nurse Mold Yard Supervisor [facility] [address] [place] [address] [facility] OB/Gynecology Comment on above: Depo Start: 04-13-2025 Annual PCP Team Chronic Disease Visit Annual PCP Team Chronic Disease Visit [facility] Start: 04-07-2025 End: 04-07-2025 Patient encounter procedure 04/07/2025 10:40 AM EDT Office Visit [facility] [address] [place] [address] Cem Boggs DO [address] [place], [place] [id number] [facility] Comment on above: [facility] Start: 03-24-2025 End: 03-24-2025 Patient encounter procedure 03/24/2025 3:00 PM EDT Office Visit [facility] - [place] [address] [place] [id number] Obdulia Garcia MD [address] [place] [address] [facility] [place] Start: 2025 Screening for malignant neoplasm of cervix HPV/Cotest [facility] Start: 02-23-2025 End: 02-23-2025 Follow-up encounter 02/23/2025 7:00 AM EDT [facility] [place] [address] [place] [address] [place] [address] [place] [address] MRI Cervical Spine follow up [facility] [place] Comment on above: MRI Cervical Spine follow up Start: 02-22-2025 End: 02-22-2025 Patient encounter procedure 02/22/2025 8:15 AM EDT Office Visit OB/Gynecology [address] [place] [address] Daniel Olivo APRN.[facility] [address] [place] [address] Annual OB/Gynecology Comment on above: Annual Start: 02-18-2025 End: 02-18-2025 Patient encounter procedure 02/18/2025 10:45 AM EDT Office Visit OB/Gynecology [address] [place] [address] Daniel Olivo APRN.CNM [address] [place] [address] Annual OB/Gynecology Comment on above: Annual Start: 02-17-2025 End: 02-17-2026 25-hydroxyvitamin D3 [Mass/volume] in Serum or Plasma Vitamin D Deficiency Screening (Vit D 25) Lab Routine S/P bariatric surgery 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 Vitamin deficiency Expected: 02/17/2025, Expires: 02/17/2026 [facility] Comment on above: Expected: 02/17/2025, Expires: Start: 02-17-2025 End: 02-17-2026 Calcium [Mass/volume] in Serum or Plasma Calcium Lab Routine 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 Expected: 02/17/2025 (Approximate), Expires: 02/17/2026 [facility] Comment on above: Expected: 02/17/2025 (Approximate), Expi res: 02/17/2026 Start: 02-17-2025 End: 02-17-2026 CBC panel - Blood by Automated count CBC Lab Routine S/P bariatric surgery 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 Vitamin deficiency Expected: 02/17/2025, Expires: 02/17/2026 [facility] Comment on above: Expected: 02/17/2025, Expires: Start: 02-17-2025 End: 02-17-2026 Cobalamin (Vitamin B12) [Mass/volume] in Serum or Plasma Vitamin B12 Lab Routine S/P bariatric surgery 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 Vitamin deficiency Expected: 02/17/2025, Expires: 02/17/2026 [facility] Comment on above: Expected: 02/17/2025, Expires: Start: 02-17-2025 End: 02-17-2026 Ferritin [Mass/volume] in Serum or Plasma Ferritin Lab Routine S/P bariatric surgery 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 Vitamin deficiency Expected: 02/17/2025, Expires: 02/17/2026 [facility] Comment on above: Expected: 02/17/2025, Expires: Start: 02-17-2025 End: 02-17-2026 Folate [Mass/volume] in Serum or Plasma Folate Lab Routine S/P bariatric surgery 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 Vitamin deficiency Expected: 02/17/2025, Expires: 02/17/2026 [facility] Comment on above: Expected: 02/17/2025, Expires: Start: 02-17-2025 End: 02-17-2026 Iron and Iron binding capacity panel - Serum or Plasma Iron Lab Routine S/P bariatric surgery 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 Vitamin deficiency Expected: 02/17/2025, Expires: 02/17/2026 [employer] [facility] Comment on above: Expected: 02/17/2025, Expires: Start: 02-17-2025 End: 02-17-2026 Magnesium [Mass/volume] in Serum or Plasma Magnesium Lab Routine S/P bariatric surgery 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 Vitamin deficiency Expected: 02/17/2025, Expires: 02/17/2026 [facility] Comment on above: Expected: 02/17/2025, Expires: Start: 02-17-2025 End: 02-17-2026 Protein [Mass/volume] in Serum or Plasma Protein, total Lab Routine 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 Expected: 02/17/2025 (Approximate), Expires: 02/17/2026 [facility] Comment on above: Expected: 02/17/2025 (Approximate), Expi res: 02/17/2026 Start: 02-17-2025 End: 02-17-2026 Vitamin B1, whole blood ([facility]) Vitamin B1, whole blood ([facility]) Lab Routine S/P bariatric surgery 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 Vitamin deficiency Expected: 02/17/2025, Expires: 02/17/2026 [facility] Comment on above: Expected: 02/17/2025, Expires: Start: 02-17-2025 End: 02-17-2026 Zinc Zinc Lab Routine S/P bariatric surgery 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 Vitamin deficiency Expected: 02/17/2025, Expires: 02/17/2026 [facility] Work Phone: Comment on above: Expected: 02/17/2025, Expires: Start: 02-04-2025 Annual PCP Team Chronic Disease Visit Annual PCP Team Chronic Disease Visit [facility] Start: 01-27-2025 [facility] Start: 01-27-2025 [facility] Start: 01-21-2025 End: 01-21-2025 Nursing evaluation of patient and report 01/21/2025 4:00 PM EDT Nurse Visit OB/Gynecology [address] [facility] [place] [address] Wstr, Nurse Mold Yard Supervisor [facility] [address] [place] [address] Depo OB/Gynecology Comment on above: Depo Start: 12-21-2024 End: 12-21-2024 Patient encounter procedure 12/21/2024 8:30 AM EDT Appointment Radiology [address] [place] [address] With cine flow. Radiology Comment on above: With cine flow. Start: 12-08-2024 End: 12-08-2024 Patient encounter procedure 12/08/2024 7:15 AM EDT [facility] [address] [place] [address] Shasta Yuen PAAyanna [address] [place] [address] CONSULT CHIARI MALFORMATION [facility] Comment on above: CONSULT CHIARI MALFORMATION Start: 12-04-2024 End: 12-04-2024 Patient encounter procedure [facility] - [place] Start: 10-29-2024 End: 10-29-2024 Nursing evaluation of patient and report 10/29/2024 4:00 PM EST Nurse Visit OB/Gynecology [address] [place], [place] [address] Wstr, Nurse Mold Yard Supervisor [facility] [address] [place] [address] Depo OB/Gynecology Comment on above: Depo Start: 10-22-2024 End: 10-22-2024 Patient encounter procedure 10/22/2024 1:45 PM EST Office Visit Cardiology [address] [place], [place] [id number] Syncope, unspecified syncope type [R55] Cardiology Comment on above: Syncope, unspecified syncope type [R55] Start: 10-08-2024 End: 01-07-2025 Cobalamin (Vitamin B12) [Mass/volume] in Serum or Plasma VITAMIN B12 Lab Routine High serum vitamin B12 Expected: 10/08/2024, Expires: 01/07/2025 [facility] Work Phone: Comment on above: Expected: 10/08/2024, Expires: Start: 10-01-2024 End: 10-01-2024 Follow-up encounter 10/01/2024 7:30 AM EST [facility] [address] [place] [address] Jazmin Jolly APRN.HIDE CURER [address] [place], [place] [id number] Headache follow up Neurology Comment on above: Headache follow up Start: 09-30-2024 End: 09-30-2024 Patient encounter procedure 09/30/2024 1:00 PM EST Office Visit [facility] Plastic Surgery - [address] [place] [address] Edie Powers MD [address] [facility] [place] [address] [place] [address] [facility] Plastic Surgery - [facility] Start: 09-11-2024 End: 09-11-2024 Patient encounter procedure 09/11/2024 3:00 PM EST Office Visit [facility] [address] [place] [address] Obdulia Garcia MD [address] [place] [address] [facility] Start: 09-07-2024 End: 09-07-2024 Patient encounter procedure 09/07/2024 3:00 PM EST Appointment [facility] [address] Non-Invasive Cardiology [address] [place] [address] [facility] [address] Non-Invasive Cardiology Start: 09-04-2024 End: 09-04-2024 Patient encounter procedure 09/04/2024 8:10 AM EST Office Visit [facility] - [place] [address] [place] [address] Obdulia Garcia MD [address] [facility] [address] [place] [address] [facility] Start: 08-31-2024 End: 08-31-2026 Cardiac holter monitor (3-7 days) Cardiac holter monitor (3-7 days) [facility] Services Routine Tachycardia Expected: 08/31/2024, Expires: 08/31/2026 [facility] Work Phone: Comment on above: Expected: 08/31/2024, Expires: Start: 08-11-2024 End: 08-11-2024 Patient encounter procedure 08/11/2024 8:00 AM EST Office Visit [facility] Obstetrics and Gynecology [address] [place] [address] 2nd [place] [address] Sudha Waters, CNM [address] [place], [place] [phone] [facility]necology Start: 08-07-2024 History and physical examination, annual for health maintenance Wellness Visit [facility] Start: 08-06-2024 End: 08-06-2024 Nursing evaluation of patient and report 08/06/2024 9:00 AM EST Nurse Visit OB/Gynecology [address] [place] [address] Wstr, Nurse Mold Yard Supervisor [facility] [address] [facility], [place] [phone] [facility] Comment on above: [facility] Start: 06-17-2024 End: 06-17-2025 25-hydroxyvitamin D3 [Mass/volume] in Serum or Plasma Vitamin D Deficiency Screening (Vit D 25) Lab Routine S/P bariatric surgery 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 Expected: 06/17/2024, Expires: 06/17/2025 [facility] Comment on above: Expected: 06/17/2024, Expires: Start: 06-17-2024 End: 06-17-2025 CBC panel - Blood by Automated count CBC Lab Routine S/P bariatric surgery 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 Expected: 06/17/2024, Expires: 06/17/2025 [facility] Comment on above: Expected: 06/17/2024, Expires: Start: 06-17-2024 End: 06-17-2025 Cobalamin (Vitamin B12) [Mass/volume] in Serum or Plasma Vitamin B12 Lab Routine S/P bariatric surgery 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 Expected: 06/17/2024, Expires: 06/17/2025 [facility] Comment on above: Expected: 06/17/2024, Expires: Start: 06-17-2024 End: 06-17-2025 Comprehensive metabolic 1998 panel - Serum or Plasma Comprehensive metabolic panel Lab Routine S/P bariatric surgery 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 Expected: 06/17/2024, Expires: 06/17/2025 [facility] Comment on above: Expected: 06/17/2024, Expires: Start: 06-17-2024 End: 06-17-2025 Ferritin [Mass/volume] in Serum or Plasma Ferritin Lab Routine S/P bariatric surgery 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 Expected: 06/17/2024, Expires: 06/17/2025 [facility] Comment on above: Expected: 06/17/2024, Expires: Start: 06-17-2024 End: 06-17-2025 Folate [Mass/volume] in Serum or Plasma Folate Lab Routine S/P bariatric surgery 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 Expected: 06/17/2024, Expires: 06/17/2025 [facility] Comment on above: Expected: 06/17/2024, Expires: Start: 06-17-2024 End: 06-17-2025 Iron and Iron binding capacity panel - Serum or Plasma Iron Lab Routine S/P bariatric surgery 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 Expected: 06/17/2024, Expires: 06/17/2025 [facility] Comment on above: Expected: 06/17/2024, Expires: Start: 06-17-2024 End: 06-17-2025 Magnesium [Mass/volume] in Serum or Plasma Magnesium Lab Routine S/P bariatric surgery 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 Expected: 06/17/2024, Expires: 06/17/2025 [facility] Comment on above: Expected: 06/17/2024, Expires: Start: 06-17-2024 End: 06-17-2025 Vitamin B1, whole blood ([facility]) Vitamin B1, whole blood (BKR [facility]) Lab Routine S/P bariatric surgery 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 Expected: 06/17/2024, Expires: 06/17/2025 [facility] Comment on above: Expected: 06/17/2024, Expires: Start: 06-17-2024 End: 06-17-2025 Zinc (Sendout) Zinc (Sendout) Lab Routine S/P bariatric surgery 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 Expected: 06/17/2024, Expires: 06/17/2025 [facility] Work Phone: Comment on above: Expected: 06/17/2024, Expires: Start: 06-17-2024 End: 06-17-2024 Patient encounter procedure 06/17/2024 1:30 PM EDT Office Visit [facility] [address] [place] [phone] Obdulia Garcia MD [address] [facility] [address] [place] [address] [facility] Start: 06-02-2024 End: 06-02-2024 ambulatory 06/02/2024 4:45 PM EDT Results Only [facility] [address] [place] [address] [facility] Start: 06-02-2024 End: 12-29-2024 Hemoglobin A1c in Blood [facility] Work Phone: Comment on above: Expected: 06/02/2024, Expires: Start: 05-28-2024 End: 05-28-2024 Patient encounter procedure 05/28/2024 8:00 AM EDT Office Visit [facility] [address] [place] [phone] Edie Powers MD [address] [facility] [address] [place], [place] [phone] [facility] Start: 05-19-2024 End: 05-19-2024 ambulatory 05/19/2024 3:00 PM EDT [facility] [address] [place], [place] [phone] Pari Cavazos MD [address] [place] [address] [facility] Topic: Understanding Migraine Triggers Neurology Comment on above: [facility] Topic: Understanding Migraine Elba ers Start: 05-13-2024 End: 05-13-2024 Nursing evaluation of patient and report 05/13/2024 9:00 AM EDT Nurse Visit OB/Gynecology [address] [place] [address] Wstr, Nurse Mold Yard Supervisor [facility] [address] [place] [address] [facility] Comment on above: [facility] Start: 05-13-2024 End: 05-13-2024 ambulatory 05/13/2024 8:30 AM EDT Results Only [facility] [address] [place] [address] [facility] Start: 05-11-2024 End: 08-10-2024 Cobalamin (Vitamin B12) [Mass/volume] in Serum or Plasma VITAMIN B12 Lab Routine High serum vitamin B12 Expected: 05/11/2024, Expires: 08/10/2024 [facility] Work Phone: Comment on above: Expected: 05/11/2024, Expires: Start: 05-11-2024 End: 05-11-2024 Patient encounter procedure 05/11/2024 2:00 PM EDT Office Visit Neurology [address] [place] [address] Rimma Panda, SOLID WASTE MANAGEMENT ENGINEER.HIDE CURER [address] [place] [address] [facility] Comment on above: [facility] Start: 05-03-2024 Covid-19 Vaccine () Covid-19 Vaccine () [facility] Start: 05-03-2024 COVID-19 Vaccine () COVID-19 Vaccine () [facility] Start: 05-03-2024 Influenza vaccination Influenza Vaccine (#1) [facility] Start: 05-01-2024 End: 05-01-2024 Patient encounter procedure 05/01/2024 9:00 AM EDT Office Visit Neurology [address] [place] [address] Rimma Panda, SOLID WASTE MANAGEMENT ENGINEER.HIDE CURER [address] [place] [address] [facility] Comment on above: Syncope Start: 04-24-2024 End: 04-24-2024 Patient encounter procedure 04/24/2024 8:00 AM EDT Office Visit Neurology [address] [place] [address] Aspen Martinez, SOLID WASTE MANAGEMENT ENGINEER.HIDE CURER [address] [place] [address] follow up Neurology Comment on above: follow up Start: 04-08-2024 End: 04-08-2024 ambulatory 04/08/2024 8:45 AM EDT Results Only [facility] [address] [place] [address] [facility] Start: 04-07-2024 End: 07-07-2024 Cobalamin (Vitamin B12) [Mass/volume] in Serum or Plasma VITAMIN B12 Lab Routine Tremor Expected: 04/07/2024, Expires: 07/07/2024 [facility] Work Phone: Comment on above: Expected: 04/07/2024, Expires: Start: 03-30-2024 End: 03-30-2024 ambulatory 03/30/2024 11:45 AM EDT OT/PT/Speech Visit [facility] [address] [facility] [place] [address] Annette Pinto, PT, DPT [address] 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 [facility] Comment on above: $30 Balance issues, dizziness. Start: 02-28-2024 End: 02-28-2024 ambulatory 02/28/2024 10:30 AM EDT Visit (SP) Office Hematology/Oncology [address] [place] [address] [place] [address] [place] [phone] DRILLING ENGINEERING MANAGER/ Leukopenia, unspecified type [D72.819]; Thrombocytopenia (HCC) [D69.6]/REF PROV DR BOGGS* FIRST AVAIL Hematology/Oncology Comment on above: DRILLING ENGINEERING MANAGER/ Leukopenia, unspecified type [D72.81 9]; Thrombocytopenia (HCC) [D69.6]/REF PROV DR BOGGS* FIRST AVAIL Start: 02-19-2024 End: 02-19-2024 Patient encounter procedure 02/19/2024 10:00 AM EDT Office Visit OB/Gynecology [address] [place] [address] Daniel Olivo APRN.[facility] [address] [place] [address] Annual Exam OB/Gynecology Comment on above: Annual Exam Start: 02-18-2024 End: 02-18-2024 ambulatory 02/18/2024 7:00 AM EDT OT/PT/Speech Visit [facility] [address] [place] [address] Kristie Rosenthal, PT [address] [place], [place] [phone] $30 Balance issues, dizziness. [facility] Comment on above: $30 Balance issues, dizziness. Start: 02-14-2024 End: 02-14-2024 ambulatory 02/14/2024 7:00 AM EDT OT/PT/Speech Visit [facility] [address] [place] [address] Kristie Rosenthal, PT [address] [place], [place] [phone] $30 Balance issues, dizziness. [facility] Comment on above: $30 Balance issues, dizziness. Start: 02-07-2024 End: 02-07-2024 ambulatory 02/07/2024 2:15 PM EDT OT/PT/Speech Visit [facility] [address] [place] [address] Kristie Rosenthal, PT [address] [place], [place] [phone] $30 Balance issues, dizziness. [facility] Comment on above: $30 Balance issues, dizziness. Start: 02-05-2024 End: 02-05-2024 Patient encounter procedure 02/05/2024 8:20 AM EDT Office Visit [facility] [address] [place] [address] Cem Boggs DO [address] [place] [address] est care [facility] Comment on above: est care Start: 01-29-2024 End: 01-29-2024 ambulatory [facility] Comment on above: Balance issues, dizziness. $30 Balance issues, dizziness. Start: 01-20-2024 End: 01-20-2024 Patient encounter procedure 01/20/2024 7:00 AM EDT Office Visit [facility] [address] [place] [phone] Izabela Rivero MD [address] [place] [address] [facility] Start: 01-18-2024 Depression screening using PHQ-9 (Patient Health Questionnaire 9) score Depression Screening (PHQ-2/9) [facility] Start: 01-18-2024 History and physical examination, annual for health maintenance Wellness Visit [facility] Start: 12-10-2023 End: 11-25-2024 CBC panel - Blood by Automated count CBC Lab Routine Intestinal malabsorption, unspecified type Deficiency of multiple nutrient elements GERD without esophagitis BMI 29.0-29.9,adult Expected: 12/10/2023 (Approximate), Expires: 11/25/2024 [facility] Comment on above: Expected: 12/10/2023 (Approximate), Expi res: 11/25/2024 Start: 12-10-2023 End: 11-25-2024 Cobalamin (Vitamin B12) [Mass/volume] in Serum or Plasma Vitamin B12 Lab Routine Intestinal malabsorption, unspecified type Deficiency of multiple nutrient elements GERD without esophagitis BMI 29.0-29.9,adult Expected: 12/10/2023 (Approximate), Expires: 11/25/2024 [facility] Comment on above: Expected: 12/10/2023 (Approximate), Expi res: 11/25/2024 Start: 12-10-2023 End: 11-25-2024 Comprehensive metabolic 1998 panel - Serum or Plasma Comprehensive metabolic panel Lab Routine Intestinal malabsorption, unspecified type Deficiency of multiple nutrient elements GERD without esophagitis BMI 29.0-29.9,adult Expected: 12/10/2023 (Approximate), Expires: 11/25/2024 [facility] Comment on above: Expected: 12/10/2023 (Approximate), Expi res: 11/25/2024 Start: 12-10-2023 End: 11-25-2024 Ferritin [Mass/volume] in Serum or Plasma Ferritin Lab Routine Intestinal malabsorption, unspecified type Deficiency of multiple nutrient elements GERD without esophagitis BMI 29.0-29.9,adult Expected: 12/10/2023 (Approximate), Expires: 11/25/2024 [facility] Comment on above: Expected: 12/10/2023 (Approximate), Expi res: 11/25/2024 Start: 12-10-2023 End: 11-25-2024 Folate [Mass/volume] in Serum or Plasma Folate Lab Routine Intestinal malabsorption, unspecified type Deficiency of multiple nutrient elements GERD without esophagitis BMI 29.0-29.9,adult Expected: 12/10/2023 (Approximate), Expires: 11/25/2024 [facility] Comment on above: Expected: 12/10/2023 (Approximate), Expi res: 11/25/2024 Start: 12-10-2023 End: 11-25-2024 Iron and Iron binding capacity panel - Serum or Plasma Iron Lab Routine Intestinal malabsorption, unspecified type Deficiency of multiple nutrient elements GERD without esophagitis BMI 29.0-29.9,adult Expected: 12/10/2023 (Approximate), Expires: 11/25/2024 [facility] Comment on above: Expected: 12/10/2023 (Approximate), Expi res: 11/25/2024 Start: 12-10-2023 End: 11-25-2024 Magnesium [Mass/volume] in Serum or Plasma Magnesium Lab Routine Intestinal malabsorption, unspecified type Deficiency of multiple nutrient elements GERD without esophagitis BMI 29.0-29.9,adult Expected: 12/10/2023 (Approximate), Expires: 11/25/2024 [facility] Comment on above: Expected: 12/10/2023 (Approximate), Expi res: 11/25/2024 Start: 12-10-2023 End: 11-25-2024 Zinc Zinc Lab Routine Intestinal malabsorption, unspecified type Deficiency of multiple nutrient elements GERD without esophagitis BMI 29.0-29.9,adult Expected: 12/10/2023 (Approximate), Expires: 11/25/2024 [facility] Work Phone: Comment on above: Expected: 12/10/2023 (Approximate), Expi res: 11/25/2024 Start: 11-26-2023 End: 11-26-2023 Patient encounter procedure 11/26/2023 9:40 AM EDT Office Visit [facility] [address] [place] [address] [address] [place] [phone] Rakesh Salazar MD [address] [place] [address] [address] [place] [address] [facility] Start: 11-20-2023 End: 06-21-2024 25-hydroxyvitamin D3 [Mass/volume] in Serum or Plasma Vitamin D Deficiency Screening (Vit D 25) Lab Routine Intestinal malabsorption, unspecified type Deficiency of multiple nutrient elements Class 1 obesity due to excess calories with body mass index (BMI) of 33.0 to 33.9 in adult, unspecified whether serious comorbidity present Hx of gastric bypass Expected: 11/20/2023 (Approximate), Expires: 06/21/2024 [facility] Comment on above: Expected: 11/20/2023 (Approximate), Expi res: 06/21/2024 Start: 11-20-2023 End: 06-21-2024 CBC panel - Blood by Automated count CBC Lab Routine Intestinal malabsorption, unspecified type Deficiency of multiple nutrient elements Class 1 obesity due to excess calories with body mass index (BMI) of 33.0 to 33.9 in adult, unspecified whether serious comorbidity present Hx of gastric bypass Expected: 11/20/2023 (Approximate), Expires: 06/21/2024 [facility] Comment on above: Expected: 11/20/2023 (Approximate), Expi res: 06/21/2024 Start: 11-20-2023 End: 06-21-2024 Cobalamin (Vitamin B12) [Mass/volume] in Serum or Plasma Vitamin B12 Lab Routine Intestinal malabsorption, unspecified type Deficiency of multiple nutrient elements Class 1 obesity due to excess calories with body mass index (BMI) of 33.0 to 33.9 in adult, unspecified whether serious comorbidity present Hx of gastric bypass Expected: 11/20/2023 (Approximate), Expires: 06/21/2024 [facility] Comment on above: Expected: 11/20/2023 (Approximate), Expi res: 06/21/2024 Start: 11-20-2023 End: 06-21-2024 Comprehensive metabolic 1998 panel - Serum or Plasma Comprehensive metabolic panel Lab Routine Intestinal malabsorption, unspecified type Deficiency of multiple nutrient elements Class 1 obesity due to excess calories with body mass index (BMI) of 33.0 to 33.9 in adult, unspecified whether serious comorbidity present Hx of gastric bypass Expected: 11/20/2023 (Approximate), Expires: 06/21/2024 [facility] Comment on above: Expected: 11/20/2023 (Approximate), Expi res: 06/21/2024 Start: 11-20-2023 End: 06-21-2024 Ferritin [Mass/volume] in Serum or Plasma Ferritin Lab Routine Intestinal malabsorption, unspecified type Deficiency of multiple nutrient elements Class 1 obesity due to excess calories with body mass index (BMI) of 33.0 to 33.9 in adult, unspecified whether serious comorbidity present Hx of gastric bypass Expected: 11/20/2023 (Approximate), Expires: 06/21/2024 [facility] Comment on above: Expected: 11/20/2023 (Approximate), Expi res: 06/21/2024 Start: 11-20-2023 End: 06-21-2024 Folate [Mass/volume] in Serum or Plasma Folate Lab Routine Intestinal malabsorption, unspecified type Deficiency of multiple nutrient elements Class 1 obesity due to excess calories with body mass index (BMI) of 33.0 to 33.9 in adult, unspecified whether serious comorbidity present Hx of gastric bypass Expected: 11/20/2023 (Approximate), Expires: 06/21/2024 [facility] Comment on above: Expected: 11/20/2023 (Approximate), Expi res: 06/21/2024 Start: 11-20-2023 End: 06-21-2024 Iron and Iron binding capacity panel - Serum or Plasma Iron Lab Routine Intestinal malabsorption, unspecified type Deficiency of multiple nutrient elements Class 1 obesity due to excess calories with body mass index (BMI) of 33.0 to 33.9 in adult, unspecified whether serious comorbidity present Hx of gastric bypass Expected: 11/20/2023 (Approximate), Expires: 06/21/2024 [facility] Comment on above: Expected: 11/20/2023 (Approximate), Expi res: 06/21/2024 Start: 11-20-2023 End: 06-21-2024 Lipid 1996 panel - Serum or Plasma Lipid panel Lab Routine Intestinal malabsorption, unspecified type Deficiency of multiple nutrient elements Class 1 obesity due to excess calories with body mass index (BMI) of 33.0 to 33.9 in adult, unspecified whether serious comorbidity present Hx of gastric bypass Expected: 11/20/2023 (Approximate), Expires: 06/21/2024 [facility] Comment on above: Expected: 11/20/2023 (Approximate), Expi res: 06/21/2024 Start: 11-20-2023 End: 06-21-2024 Magnesium [Mass/volume] in Serum or Plasma Magnesium Lab Routine Intestinal malabsorption, unspecified type Deficiency of multiple nutrient elements Class 1 obesity due to excess calories with body mass index (BMI) of 33.0 to 33.9 in adult, unspecified whether serious comorbidity present Hx of gastric bypass Expected: 11/20/2023 (Approximate), Expires: 06/21/2024 [facility] Comment on above: Expected: 11/20/2023 (Approximate), Expi res: 06/21/2024 Start: 11-20-2023 End: 06-21-2024 Vitamin B1, whole blood Vitamin B1, whole blood Lab Routine Intestinal malabsorption, unspecified type Deficiency of multiple nutrient elements Class 1 obesity due to excess calories with body mass index (BMI) of 33.0 to 33.9 in adult, unspecified whether serious comorbidity present Hx of gastric bypass Expected: 11/20/2023 (Approximate), Expires: 06/21/2024 [facility] Comment on above: Expected: 11/20/2023 (Approximate), Expi res: 06/21/2024 Start: 11-20-2023 End: 06-21-2024 Zinc Zinc Lab Routine Intestinal malabsorption, unspecified type Deficiency of multiple nutrient elements Class 1 obesity due to excess calories with body mass index (BMI) of 33.0 to 33.9 in adult, unspecified whether serious comorbidity present Hx of gastric bypass Expected: 11/20/2023 (Approximate), Expires: 06/21/2024 [facility] Work Phone: Comment on above: Expected: 11/20/2023 (Approximate), Expi res: 06/21/2024 Start: 11-11-2023 End: 11-11-2023 Patient encounter procedure 11/11/2023 3:30 PM EDT Office Visit [facility] [address] [facility] [place] [address] Zaria Gilman, HIDE CURER [address] [place] [address] [facility] Start: 11-07-2023 Diabetes mellitus screening Diabetes Screening [facility] Start: 10-28-2023 End: 10-28-2023 Clinical Support 10/28/2023 9:00 AM EST Clinical Support [facility] Ob[facility] Gynecology [address] [facility] 2nd [place] [phone] [facility] Start: 09-26-2023 End: 09-26-2023 Patient encounter procedure 09/26/2023 8:00 AM EST Office Visit [facility] [address] [place] [address] [place] [address] Trang Castillo, HIDE CURER [address] [place] [address] Fallon Cortes MD [address] [place] [phone] [facility] Start: 09-17-2023 End: 06-17-2024 25-hydroxyvitamin D3 [Mass/volume] in Serum or Plasma Vitamin D Deficiency Screening (Vit D 25) Lab Routine High vitamin D level Expected: 09/17/2023 (Approximate), Expires: 06/17/2024 [facility] Comment on above: Expected: 09/17/2023 (Approximate), Expi res: 06/17/2024 Start: 09-17-2023 End: 06-17-2024 CBC panel - Blood by Automated count CBC Lab Routine High serum ferritin Expected: 09/17/2023 (Approximate), Expires: 06/17/2024 [facility] Work Phone: Comment on above: Expected: 09/17/2023 (Approximate), Expi res: 06/17/2024 Start: 09-17-2023 End: 06-17-2024 Cobalamin (Vitamin B12) [Mass/volume] in Serum or Plasma Vitamin B12 Lab Routine High serum vitamin B12 Expected: 09/17/2023 (Approximate), Expires: 06/17/2024 [facility] Comment on above: Expected: 09/17/2023 (Approximate), Expi res: 06/17/2024 Start: 09-17-2023 End: 06-17-2024 Ferritin [Mass/volume] in Serum or Plasma Ferritin Lab Routine High serum ferritin Expected: 09/17/2023 (Approximate), Expires: 06/17/2024 [facility] Comment on above: Expected: 09/17/2023 (Approximate), Expi res: 06/17/2024 Start: 09-17-2023 End: 06-17-2024 Iron and Iron binding capacity panel - Serum or Plasma Iron Lab Routine High serum ferritin Expected: 09/17/2023 (Approximate), Expires: 06/17/2024 [facility] Comment on above: Expected: 09/17/2023 (Approximate), Expi res: 06/17/2024 Start: 09-17-2023 End: 09-17-2023 Patient encounter procedure 09/17/2023 8:15 AM EST Appointment [facility]vasive [facility] [address] [place] [address] Faith Taylor MD [address] [place] [id number] [facility] Start: 09-09-2023 End: 11-07-2024 Echocardiography Echocardiogram complete Echocardiography Routine Syncope, unspecified syncope type Abnormal EKG Expected: 09/09/2023, Expires: 11/07/2024 [facility] Work Phone: Comment on above: Expected: 09/09/2023, Expires: Start: 09-09-2023 End: 11-07-2024 Extended Holter Monitor (3-7 days) Extended Holter Monitor (3-7 days) Cardiac Services Routine Syncope, unspecified syncope type Abnormal EKG Expected: 09/09/2023, Expires: 11/07/2024 [facility] Comment on above: Expected: 09/09/2023, Expires: 5 Start: 09-02-2023 Depression Assessment Depression Assessment [facility] Start: 08-20-2023 End: 08-20-2023 Patient encounter procedure 08/20/2023 7:30 AM EST Office Visit [facility] [facility] [address] [place] [address] SINCERE Cormier, DPM [address] [place] [address] [facility] Start: 08-16-2023 End: 08-16-2023 Patient encounter procedure 08/16/2023 7:30 AM EST Office Visit [facility] [address] [place] [address] Trang Castillo, MAXINE [address] [place] [address] [facility] Start: 08-07-2023 End: 08-07-2023 Patient encounter procedure [facility] Start: 07-30-2023 End: 07-30-2023 Patient encounter procedure 07/30/2023 7:30 AM EST Office Visit [facility] [place] [address] SINCERE Cormier, DPM [address] [place] [address] [facility] Start: 06-21-2023 End: 06-21-2023 Patient encounter procedure [facility] [place] Start: 05-25-2023 End: 02-23-2024 25-hydroxyvitamin D3 [Mass/volume] in Serum or Plasma Vitamin D 25 hydroxy Lab Routine Intestinal malabsorption, unspecified type Deficiency of multiple nutrient elements Class 2 obesity due to excess calories without serious comorbidity with body mass index (BMI) of 38.0 to 38.9 in adult Expected: 05/25/2023 (Approximate), Expires: 02/23/2024 [facility] Comment on above: Expected: 05/25/2023 (Approximate), Expi res: 02/23/2024 Start: 05-25-2023 End: 02-23-2024 CBC panel - Blood by Automated count CBC Lab Routine Intestinal malabsorption, unspecified type Deficiency of multiple nutrient elements Class 2 obesity due to excess calories without serious comorbidity with body mass index (BMI) of 38.0 to 38.9 in adult Expected: 05/25/2023 (Approximate), Expires: 02/23/2024 [employer] [facility] Comment on above: Expected: 05/25/2023 (Approximate), Expi res: 02/23/2024 Start: 05-25-2023 End: 02-23-2024 Cobalamin (Vitamin B12) [Mass/volume] in Serum or Plasma Vitamin B12 Lab Routine Intestinal malabsorption, unspecified type Deficiency of multiple nutrient elements Class 2 obesity due to excess calories without serious comorbidity with body mass index (BMI) of 38.0 to 38.9 in adult Expected: 05/25/2023 (Approximate), Expires: 02/23/2024 [employer] [facility] Comment on above: Expected: 05/25/2023 (Approximate), Expi res: 02/23/2024 Start: 05-25-2023 End: 02-23-2024 Comprehensive metabolic 1998 panel - Serum or Plasma Comprehensive metabolic panel Lab Routine Intestinal malabsorption, unspecified type Deficiency of multiple nutrient elements Class 2 obesity due to excess calories without serious comorbidity with body mass index (BMI) of 38.0 to 38.9 in adult Expected: 05/25/2023 (Approximate), Expires: 02/23/2024 [employer] [facility] Comment on above: Expected: 05/25/2023 (Approximate), Expi res: 02/23/2024 Start: 05-25-2023 End: 02-23-2024 Ferritin [Mass/volume] in Serum or Plasma Ferritin Lab Routine Intestinal malabsorption, unspecified type Deficiency of multiple nutrient elements Class 2 obesity due to excess calories without serious comorbidity with body mass index (BMI) of 38.0 to 38.9 in adult Expected: 05/25/2023 (Approximate), Expires: 02/23/2024 [employer] [facility] Comment on above: Expected: 05/25/2023 (Approximate), Expi res: 02/23/2024 Start: 05-25-2023 End: 02-23-2024 Folate [Mass/volume] in Serum or Plasma Folate Lab Routine Intestinal malabsorption, unspecified type Deficiency of multiple nutrient elements Class 2 obesity due to excess calories without serious comorbidity with body mass index (BMI) of 38.0 to 38.9 in adult Expected: 05/25/2023 (Approximate), Expires: 02/23/2024 [employer] [facility] Comment on above: Expected: 05/25/2023 (Approximate), Expi res: 02/23/2024 Start: 05-25-2023 End: 02-23-2024 Iron and Iron binding capacity panel - Serum or Plasma Iron Lab Routine Intestinal malabsorption, unspecified type Deficiency of multiple nutrient elements Class 2 obesity due to excess calories without serious comorbidity with body mass index (BMI) of 38.0 to 38.9 in adult Expected: 05/25/2023 (Approximate), Expires: 02/23/2024 [employer] [facility] Comment on above: Expected: 05/25/2023 (Approximate), Expi res: 02/23/2024 Start: 05-25-2023 End: 02-23-2024 Lipid 1996 panel - Serum or Plasma Lipid panel Lab Routine Intestinal malabsorption, unspecified type Deficiency of multiple nutrient elements Class 2 obesity due to excess calories without serious comorbidity with body mass index (BMI) of 38.0 to 38.9 in adult Expected: 05/25/2023 (Approximate), Expires: 02/23/2024 [employer] [facility] Comment on above: Expected: 05/25/2023 (Approximate), Expi res: 02/23/2024 Start: 05-25-2023 End: 02-23-2024 Magnesium [Mass/volume] in Serum or Plasma Magnesium Lab Routine Intestinal malabsorption, unspecified type Deficiency of multiple nutrient elements Class 2 obesity due to excess calories without serious comorbidity with body mass index (BMI) of 38.0 to 38.9 in adult Expected: 05/25/2023 (Approximate), Expires: 02/23/2024 [employer] [facility] Comment on above: Expected: 05/25/2023 (Approximate), Expi res: 02/23/2024 Start: 05-25-2023 End: 02-23-2024 Vitamin B1, whole blood Vitamin B1, whole blood Lab Routine Intestinal malabsorption, unspecified type Deficiency of multiple nutrient elements Class 2 obesity due to excess calories without serious comorbidity with body mass index (BMI) of 38.0 to 38.9 in adult Expected: 05/25/2023 (Approximate), Expires: 02/23/2024 [facility] Comment on above: Expected: 05/25/2023 (Approximate), Expi res: 02/23/2024 Start: 05-25-2023 End: 02-23-2024 Zinc Zinc Lab Routine Intestinal malabsorption, unspecified type Deficiency of multiple nutrient elements Class 2 obesity due to excess calories without serious comorbidity with body mass index (BMI) of 38.0 to 38.9 in adult Expected: 05/25/2023 (Approximate), Expires: 02/23/2024 [facility] Work Phone: Comment on above: Expected: 05/25/2023 (Approximate), Expi res: 02/23/2024 Start: 05-03-2023 Covid-19 Vaccine () Covid-19 Vaccine () [facility] Start: 05-03-2023 Influenza vaccination [facility] Start: 03-25-2023 End: 03-25-2023 Clinical Support 03/25/2023 8:15 AM EDT Clinical Support [facility] [address] [facility] [address] [place] [address] [facility] Start: 02-24-2023 End: 12-26-2023 CBC panel - Blood by Automated count CBC Lab Routine Deficiency of multiple nutrient elements Intestinal malabsorption, unspecified type Morbid obesity with BMI of 40.0-44.9, adult (HCC) Expected: 02/24/2023 (Approximate), Expires: 12/26/2023 [facility] Comment on above: Expected: 02/24/2023 (Approximate), Expi res: 12/26/2023 Start: 02-24-2023 End: 12-26-2023 Cobalamin (Vitamin B12) [Mass/volume] in Serum or Plasma Vitamin B12 Lab Routine Deficiency of multiple nutrient elements Intestinal malabsorption, unspecified type Morbid obesity with BMI of 40.0-44.9, adult (HCC) Expected: 02/24/2023 (Approximate), Expires: 12/26/2023 [facility] Comment on above: Expected: 02/24/2023 (Approximate), Expi res: 12/26/2023 Start: 02-24-2023 End: 12-26-2023 Comprehensive metabolic 1998 panel - Serum or Plasma Comprehensive metabolic panel Lab Routine Deficiency of multiple nutrient elements Intestinal malabsorption, unspecified type Morbid obesity with BMI of 40.0-44.9, adult (HCC) Expected: 02/24/2023 (Approximate), Expires: 12/26/2023 [facility] Comment on above: Expected: 02/24/2023 (Approximate), Expi res: 12/26/2023 Start: 02-24-2023 End: 12-26-2023 Ferritin [Mass/volume] in Serum or Plasma Ferritin Lab Routine Deficiency of multiple nutrient elements Intestinal malabsorption, unspecified type Morbid obesity with BMI of 40.0-44.9, adult (HCC) Expected: 02/24/2023 (Approximate), Expires: 12/26/2023 [facility] Comment on above: Expected: 02/24/2023 (Approximate), Expi res: 12/26/2023 Start: 02-24-2023 End: 12-26-2023 Folate [Mass/volume] in Serum or Plasma Folate Lab Routine Deficiency of multiple nutrient elements Intestinal malabsorption, unspecified type Morbid obesity with BMI of 40.0-44.9, adult (HCC) Expected: 02/24/2023 (Approximate), Expires: 12/26/2023 [facility] Comment on above: Expected: 02/24/2023 (Approximate), Expi res: 12/26/2023 Start: 02-24-2023 End: 12-26-2023 Iron and Iron binding capacity panel - Serum or Plasma Iron Lab Routine Deficiency of multiple nutrient elements Intestinal malabsorption, unspecified type Morbid obesity with BMI of 40.0-44.9, adult (HCC) Expected: 02/24/2023 (Approximate), Expires: 12/26/2023 [facility] Comment on above: Expected: 02/24/2023 (Approximate), Expi res: 12/26/2023 Start: 02-24-2023 End: 12-26-2023 Magnesium [Mass/volume] in Serum or Plasma Magnesium Lab Routine Deficiency of multiple nutrient elements Intestinal malabsorption, unspecified type Morbid obesity with BMI of 40.0-44.9, adult (HCC) Expected: 02/24/2023 (Approximate), Expires: 12/26/2023 [employer] Comment on above: Expected: 02/24/2023 (Approximate), Expi res: 12/26/2023 Start: 02-24-2023 End: 12-26-2023 Zinc Zinc Lab Routine Deficiency of multiple nutrient elements Intestinal malabsorption, unspecified type Morbid obesity with BMI of 40.0-44.9, adult (HCC) Expected: 02/24/2023 (Approximate), Expires: 12/26/2023 [employer] [facility] Work Phone: Comment on above: Expected: 02/24/2023 (Approximate), Expi res: 12/26/2023 Start: 02-22-2023 End: 02-22-2023 Patient encounter procedure [facility] [place] Start: 02-14-2023 End: 05-17-2023 Comprehensive metabolic 1998 panel - Serum or Plasma Comprehensive metabolic panel Lab Routine High creatinine Expected: 02/14/2023 (Approximate), Expires: 05/17/2023 [employer] Work Phone: Comment on above: Expected: 02/14/2023 (Approximate), Expi res: 05/17/2023 Start: 01-21-2023 End: 01-21-2023 Clinical Support 01/21/2023 Clinical Support Obstetrics and Gynecology [facility] Start: 01-17-2023 End: 01-17-2023 Patient encounter procedure 01/17/2023 7:30 AM EDT Office Visit [facility] [address] [place] [id number] Izabela Rivero MD [address] [place] [address] [facility] Start: 12-25-2022 End: 12-25-2022 Patient encounter procedure [facility] [place] Start: 12-18-2022 End: 11-28-2023 CBC panel - Blood by Automated count CBC Lab Routine Deficiency of multiple nutrient elements Intestinal malabsorption, unspecified type Morbid obesity with BMI of 40.0-44.9, adult (HCC) Expected: 12/18/2022 (Approximate), Expires: 11/28/2023 [facility] Comment on above: Expected: 12/18/2022 (Approximate), Expi res: 11/28/2023 Start: 12-18-2022 End: 11-28-2023 Cobalamin (Vitamin B12) [Mass/volume] in Serum or Plasma Vitamin B12 Lab Routine Deficiency of multiple nutrient elements Intestinal malabsorption, unspecified type Morbid obesity with BMI of 40.0-44.9, adult (HCC) Expected: 12/18/2022 (Approximate), Expires: 11/28/2023 [facility] Comment on above: Expected: 12/18/2022 (Approximate), Expi res: 11/28/2023 Start: 12-18-2022 End: 11-28-2023 Comprehensive metabolic 1998 panel - Serum or Plasma Comprehensive metabolic panel Lab Routine Deficiency of multiple nutrient elements Intestinal malabsorption, unspecified type Morbid obesity with BMI of 40.0-44.9, adult (HCC) Expected: 12/18/2022 (Approximate), Expires: 11/28/2023 [facility] Comment on above: Expected: 12/18/2022 (Approximate), Expi res: 11/28/2023 Start: 12-18-2022 End: 11-28-2023 Ferritin [Mass/volume] in Serum or Plasma Ferritin Lab Routine Deficiency of multiple nutrient elements Intestinal malabsorption, unspecified type Morbid obesity with BMI of 40.0-44.9, adult (HCC) Expected: 12/18/2022 (Approximate), Expires: 11/28/2023 [facility] Comment on above: Expected: 12/18/2022 (Approximate), Expi res: 11/28/2023 Start: 12-18-2022 End: 11-28-2023 Folate [Mass/volume] in Serum or Plasma Folate Lab Routine Deficiency of multiple nutrient elements Intestinal malabsorption, unspecified type Morbid obesity with BMI of 40.0-44.9, adult (HCC) Expected: 12/18/2022 (Approximate), Expires: 11/28/2023 [facility] Comment on above: Expected: 12/18/2022 (Approximate), Expi res: 11/28/2023 Start: 12-18-2022 End: 11-28-2023 Iron and Iron binding capacity panel - Serum or Plasma Iron Lab Routine Deficiency of multiple nutrient elements Intestinal malabsorption, unspecified type Morbid obesity with BMI of 40.0-44.9, adult (HCC) Expected: 12/18/2022 (Approximate), Expires: 11/28/2023 [facility] Comment on above: Expected: 12/18/2022 (Approximate), Expi res: 11/28/2023 Start: 12-18-2022 End: 11-28-2023 Magnesium [Mass/volume] in Serum or Plasma Magnesium Lab Routine Deficiency of multiple nutrient elements Intestinal malabsorption, unspecified type Morbid obesity with BMI of 40.0-44.9, adult (HCC) Expected: 12/18/2022 (Approximate), Expires: 11/28/2023 [facility] Comment on above: Expected: 12/18/2022 (Approximate), Expi res: 11/28/2023 Start: 12-18-2022 End: 11-28-2023 Zinc Zinc Lab Routine Deficiency of multiple nutrient elements Intestinal malabsorption, unspecified type Morbid obesity with BMI of 40.0-44.9, adult (HCC) Expected: 12/18/2022 (Approximate), Expires: 11/28/2023 [facility] Work Phone: Comment on above: Expected: 12/18/2022 (Approximate), Expi res: 11/28/2023 Start: 11-27-2022 End: 11-27-2022 Patient encounter procedure [facility] [place] Start: 11-21-2022 End: 11-21-2022 Admission to same day surgery center [facility] MA[facility] OR Comment on above: LAPAROSCOPIC TONIO-EN-Y GASTRIC BYPASS WI TH LIVER WEDGE BIOPSY, HIATAL HERNIA REPAIR, POSSIBLE OPEN [26797 (CPT )] Start: 11-21-2022 End: 11-21-2022 Anesthesia consultation 11/21/2022 Anesthesia Event Procedural Lucero Bowser, SISSY [address] [place] [address] [facility] Start: 11-21-2022 End: 11-21-2022 Laps gstr rstcv px w/byp tonio-en-y limb <150 cm LAPAROSCOPIC TONIO-EN-Y GASTRIC BYPASS WITH LIVER WEDGE BIOPSY POSSIBLE OPEN Morbid (severe) obesity due to excess calories (HCC) 11/21/2022 7:30 AM EDT [facility] Operating Room Start: 11-21-2022 End: 11-21-2022 Laps rpr paraesphgl hrna incl fundplsty w/o mesh LAPAROSCOPY REPAIR PARAESOPHAGEAL HERNIA INCLUDING FUNDOPLASTY Morbid (severe) obesity due to excess calories (HCC) 11/21/2022 7:30 AM EDT [facility] Operating Room Start: 11-21-2022 Subsequent hospital visit by physician [facility] Start: 11-21-2022 End: 11-21-2022 Unlis laparoscopic procedure liver UNLISTED LAPAROSCOPIC PROCEDURE LIVER Morbid (severe) obesity due to excess calories (HCC) 11/21/2022 7:30 AM EDT [facility] Operating Room Start: 11-19-2022 End: 11-19-2022 Admission to same day surgery center 11/19/2022 Surgery Procedural Rakesh Salazar MD [address] [place], [place] [id number] LAPAROSCOPIC TONIO-EN-Y GASTRIC BYPASS WITH LIVER WEDGE BIOPSY POSSIBLE OPEN [43151 (CPT )] [facility] OR Comment on above: LAPAROSCOPIC TONIO-EN-Y GASTRIC BYPASS WI TH LIVER WEDGE BIOPSY POSSIBLE OPEN [19715 (CPT )] Start: 11-19-2022 End: 11-19-2022 Laps gstr rstcv px w/byp tonio-en-y limb <150 cm LAPAROSCOPIC TONIO-EN-Y GASTRIC BYPASS WITH LIVER WEDGE BIOPSY POSSIBLE OPEN Morbid (severe) obesity due to excess calories (HCC) 11/19/2022 7:30 AM EDT [facility] Operating Room Start: 11-19-2022 Subsequent hospital visit by physician 11/19/2022 Hospital Encounter Procedural Rakesh Salazar MD [address] [place], [place] [id number] [facility] Start: 11-19-2022 End: 11-19-2022 Unlis laparoscopic procedure liver UNLISTED LAPAROSCOPIC PROCEDURE LIVER Morbid (severe) obesity due to excess calories (HCC) 11/19/2022 7:30 AM EDT [facility] Operating Room Start: 11-16-2022 End: 02-09-2023 Basic metabolic 1998 panel - Serum or Plasma Basic metabolic panel Lab Routine High potassium Expected: 11/16/2022 (Approximate), Expires: 02/09/2023 [facility] Work Phone: Comment on above: Expected: 11/16/2022 (Approximate), Expi res: 02/09/2023 Start: 11-12-2022 End: 11-12-2022 Admission to establishment [facility] Pre-Admit Testing Start: 11-06-2022 End: 11-06-2022 Patient encounter procedure 11/06/2022 Office Visit Bariatrics Rakesh Salazar MD [address] [place], [place] [id number] [facility] [place] Start: 10-31-2022 End: 10-31-2022 Clinical Support 10/31/2022 Clinical Support Obstetrics and Gynecology [facility] Start: 09-02-2022 Depression Assessment Depression Assessment [facility] Start: 08-09-2022 End: 08-09-2022 Professional / ancillary services management 08/09/2022 Ancillary Procedure Obstetrics and Gynecology Sudha Waters, CNM [address] [place] [address] [facility] Start: 06-27-2022 End: 06-27-2022 Patient encounter procedure 06/27/2022 Office Visit Weight Management Obdulia Garcia MD [address] [place], [place] [id number] [facility] Start: 05-23-2022 End: 05-23-2022 Patient encounter procedure 05/23/2022 Office Visit Weight Management Obdulia Garcia MD [address] [place] [address] [facility] Start: 05-03-2022 Influenza vaccination [facility] Start: 04-10-2022 End: 04-10-2022 Patient encounter procedure 04/10/2022 Appointment Radiology Claudine Ambrosio APRN - NP [address] [place] [address] [facility] Ul[facility] Start: 04-06-2022 End: 04-06-2022 Patient encounter procedure 04/06/2022 Appointment IP Unit Rakesh Salazar MD [address] [place] [address] [facility] Start: 04-06-2022 End: 04-06-2022 Patient encounter procedure 04/06/2022 Office Visit Weight Management Annette Griffith MS, RD, LD [address] [place], [place] [id number] [facility] Start: 04-02-2022 Influenza vaccination Flu vaccine (#1) [facility] Start: 03-23-2022 [facility] Work Phone: Start: 03-23-2022 End: 03-23-2022 Patient encounter procedure 03/23/2022 Appointment Radiology [facility] [address] Start: 03-21-2022 End: 03-21-2022 Patient encounter procedure [facility] Start: 03-21-2022 [facility] Work Phone: Start: 03-07-2022 End: 03-07-2022 Telemedicine consultation with patient 03/07/2022 Telemedicine Weight Management Annette Griffith MS, RD, LD [address] [place] [address] [facility] Start: 10-23-2021 COVID-19 Vaccine (4 - Booster for Pfizer series) COVID-19 Vaccine (4 - Booster for Pfizer series) [facility] Start: 10-23-2021 COVID-19 Vaccine (4 - Pfizer series) COVID-19 Vaccine (4 - Pfizer series) [facility] Start: 04-18-2016 DTaP/Tdap/Td vaccine (7 - Td or Tdap) DTaP/Tdap/Td vaccine (7 - Td or Tdap) [facility] Start: 04-18-2016 DTaP/Tdap/Td Vaccines (7 - Td or Tdap) DTaP/Tdap/Td Vaccines (7 - Td or Tdap) [facility] Start: 04-18-2016 Tetanus vaccination Tetanus: Every 10yrs [facility] Start: 04-18-2016 Urine microalbumin profile DTaP,Tdap,Td Vaccine (7 - Td or Tdap) [facility] Start: 2016 Pap Testing Pap Testing [facility] Start: 2016 Screening for malignant neoplasm of cervix Pap smear [facility] Start: 2014 Pneumococcal Vaccine: Pediatrics (0 to 5 Years) and At-Risk Patients (6 to 49 Years) (1 of 2 - PCV) Pneumococcal Vaccine: Pediatrics (0 to 5 Years) and At-Risk Patients (6 to 49 Years) (1 of 2 - PCV) [facility] Start: 06-11-2013 Hepatitis A vaccine (2 of 2 - 2-dose series) Hepatitis A vaccine (2 of 2 - 2-dose series) [facility] Start: 06-11-2013 Hepatitis A Vaccines (2 of 2 - 2-dose series) [facility] Start: 2013 Anxiety Screening Anxiety Screening [facility] Start: 2013 Depression Screening Depression Screening [facility] Start: 2013 Hepatitis C screening [facility] Start: 2013 HIV Screening HIV Screening [facility] Start: 2013 HIV screening HIV Screening [facility] Start: 2013 Spirometry Spirometry [facility] Start: 01-07-2013 HPV vaccine (2 - 3-dose series) HPV vaccine (2 - 3-dose series) [facility] Start: 01-07-2013 HPV Vaccines (2 - 3-dose series) HPV Vaccines (2 - 3-dose series) [facility] Start: 2010 HIV screening [facility] Start: 2008 Varicella vaccination Varicella Vaccines (1 of 2 - 13+ 2-dose series) [facility] Start: 2007 Depression Monitoring Depression Monitoring [facility] Start: 2007 Depression Screen Depression Screen [facility] Start: 2007 Depression screening using PHQ-9 (Patient Health Questionnaire 9) score [facility] Start: 2001 Pneumococcal Vaccine: Pediatrics (0 to 5 Years) and At-Risk Patients (6 to 64 Years) (1 of 2 - PCV) Pneumococcal Vaccine: Pediatrics (0 to 5 Years) and At-Risk Patients (6 to 64 Years) (1 of 2 - PCV) [facility] Start: 04-18-1999 Varicella vaccination Varicella Vaccines (1 of 2 - 2-dose childhood series) [facility] Start: 1998 History and physical examination, annual for health maintenance Wellness Visit [facility] Start: 1996 Varicella vaccine (1 of 2 - 2-dose childhood series) Varicella vaccine (1 of 2 - 2-dose childhood series) [facility] Start: 1995 HIV screening HIV Screening [facility] Start: 1995 Screening for malignant neoplasm of cervix Pap Smear [facility] End: 09-07-2024 Cardiac holter monitor (3-7 days) [facility] Work Phone: Comment on above: Once for 1 Occurrences starting 09/07/19 until 09/07/2024 Cardiovascular funct ion eval w/tilt table w/mntr TILT TABLE EVALUATION Cardiology Routine Syncope, unspecified syncope type Orthostatic lightheadedness Tachycardia Near syncope Ordered: 05/01/2024 [facility] Work Phone: Comment on above: Ordered: 05/01/2024 End: 08-16-2024 CBC panel - Blood by Automated count CBC Lab Routine Syncope, unspecified syncope type 1 Occurrences starting 08/16/2023 until 08/16/2024 [facility] Comment on above: 1 Occurrences starting 08/16/2023 until 08/16/2024 CBC panel - Blood by Automated count CBC Lab Routine Syncope, unspecified syncope type 08/16/2023 8:09 AM EST [facility] End: 08-16-2024 Comprehensive metabolic 2000 panel - Serum or Plasma Comprehensive Metabolic Panel Lab Routine Syncope, unspecified syncope type 1 Occurrences starting 08/16/2023 until 08/16/2024 [facility] Work Phone: Comment on above: 1 Occurrences starting 08/16/2023 until 08/16/2024 Comprehensive metabo lic 2000 panel - Serum or Plasma Comprehensive Metabolic Panel Lab Routine Syncope, unspecified syncope type 08/16/2023 8:09 AM EST [facility] End: 08-16-2024 Iron measurement Iron Study with Ferritin Lab Routine Syncope, unspecified syncope type 1 Occurrences starting 08/16/2023 until 08/16/2024 [facility] Comment on above: 1 Occurrences starting 08/16/2023 until 08/16/2024 Iron measurement Iron Study with Ferritin Lab Routine Syncope, unspecified syncope type 08/16/2023 8:09 AM [facility] End: 08-16-2024 Magnesium [Mass/volume] in Serum or Plasma Magnesium Lab Routine Syncope, unspecified syncope type 1 Occurrences starting 08/16/2023 until 08/16/2024 [facility] Comment on above: 1 Occurrences starting 08/16/2023 until 08/16/2024 Magnesium [Mass/volu me] in Serum or Plasma Magnesium Lab Routine Syncope, unspecified syncope type 08/16/2023 8:09 AM [facility] Microscopic examinat ion of vaginal Papanicolaou smear Thinprep Pap Smear Pathology and Cytology Routine Encounter for well woman exam with routine gynecological exam 08/07/2023 8:42 AM [facility] Work Phone: End: 01-07-2026 MR Cervical spine WO contrast MRI CERVICAL SPINE WO IVCON Radiology Routine Chiari I malformation (HCC) 1 Occurrences starting 12/08/2024 until 01/07/2026 [facility] Work Phone: Comment on above: 1 Occurrences starting 12/08/2024 until 01/07/2026 OUTSIDE PROCEDURE SCAN OUTSIDE P ROCEDURE SCAN Procedures Ordered: 11/06/2022 [facility] Comment on above: Ordered: 11/06/2022 Patient Education [facility] Work Phone: Patient referral [facility] Work Phone: End: 04-06-2022 Surgical Pathology [facility] Work Phone: Comment on above: Once for 1 Occurrences starting 04/06/20 until 04/06/2022 End: 08-16-2024 Thyrotropin [Units/volume] in Serum or Plasma TSH with Reflex Free T4 Lab Routine Syncope, unspecified syncope type 1 Occurrences starting 08/16/2023 until 08/16/2024 [facility] Comment on above: 1 Occurrences starting 08/16/2023 until 08/16/2024 Thyrotropin [Units/volume] in Serum or Plasma TSH with Reflex Free T4 Lab Routine Syncope, unspecified syncope type 08/16/2023 8:09 AM EST [facility] End: 08-02-2023 US Pelvic Transabdominal and Transvaginal US Pelvic Transabdominal and Transvaginal Imaging Routine Abnormal menses 1 Occurrences starting 08/02/2022 until 08/02/2023 [facility] Work Phone: Comment on above: 1 Occurrences starting 08/02/2022 until 08/02/2023 [facility] Immunizations Immunization Date Immunization Notes Care Provider Ravi cintron 05-15-2024 COVID-19 vaccine, ag e 12+ yr ([employer] [facility]) Cem Sheets DO Work Phone: [facility] 05-15-2024 influenza, seasonal, injectable Cem Sheets DO Work Phone: [facility] 05-15-2024 influenza virus vacc ine, unspecified formulation Shasta Yuen PA-C Work Phone: [facility] 08-11-2023 influenza, injectabl e, quadrivalent, preservative free Trang Csatillo HIDE CURER Work Phone: [facility] 08-11-2023 influenza virus vacc ine, unspecified formulation David De Los Santos MD Work Phone: [facility] 01-17-2023 tetanus toxoid, redu yuko diphtheria toxoid, and acellular pertussis vaccine, adsorbed Marbin Spialmita HIDE CURER Work Phone: [facility] 08-28-2021 Pfizer SARS-CoV-[address] Work Phone: [facility] 01-11-2021 Pfizer SARS-CoV-[address] Work Phone: [facility] 12-21-2020 Pfizer SARS-CoV-[address] Work Phone: [facility] 12-10-2012 hepatitis A vaccine, pediatric/adolescent dosage, 2 dose schedule Marbin Peter HIDE CURER Work Phone: [facility] 12-10-2012 human papilloma viru s vaccine, quadrivalent Marbin Spieldenner HIDE CURER Work Phone: [facility] 12-10-2012 meningococcal polysaccharide (groups A, C, Y and W-135) diphtheria toxoid conjugate vaccine (MCV4P) Marbin Spieldenner HIDE CURER Work Phone: [facility] 12-10-2012 hepatitis A and hepatitis B vaccine Starr Gillespie RD Work Phone: [facility] 12-10-2012 HPV, unspecified formulation Ana Tanner DRILLING ENGINEERING MANAGER Work Phone: [facility] 06-12-2012 influenza nasal, unspecified formulation Cem Boggs DO Work Phone: [facility] 06-12-2012 influenza, seasonal, injectable Marbin Spieldenner HIDE CURER Work Phone: [facility] 06-12-2012 influenza virus vacc ine, unspecified formulation Starr Gillespie RD Work Phone: [facility] 06-10-2008 influenza, seasonal, injectable Marbin Spieldenner HIDE CURER Work Phone: [facility] 01-13-2007 meningococcal ACWY vaccine, unspecified formulation Mabrin Spieldenner HIDE CURER Work Phone: [facility] 04-18-2006 tetanus toxoid, redu yuko diphtheria toxoid, and acellular pertussis vaccine, adsorbed Marbin Spieldenner HIDE CURER Work Phone: [facility] 03-21-1999 diphtheria, tetanus toxoids and acellular pertussis vaccine, unspecified formulation Marbin Spieldenner HIDE CURER Work Phone: [facility] 03-21-1999 measles, mumps and rubella virus vaccine Marbin Spieldenner HIDE CURER Work Phone: [facility] 03-21-1999 trivalent poliovirus vaccine, live, oral Marbin Spieldenner HIDE CURER Work Phone: [facility] 07-21-1996 diphtheria, tetanus toxoids and acellular pertussis vaccine, unspecified formulation Marbin Spieldenner HIDE CURER Work Phone: [facility] 07-21-1996 haemophilus influenz ae type b vaccine, conjugate unspecified formulation Marbin Spieldenner HIDE CURER Work Phone: [facility] 07-21-1996 measles, mumps and rubella virus vaccine Marbin Spieldenner HIDE CURER Work Phone: [facility] 01-02-1996 DTP-Haemophilus influenzae type b conjugate vaccine Marbin Spieldenner HIDE CURER Work Phone: [facility] 01-02-1996 hepatitis B vaccine, pediatric or pediatric/adolescent dosage Marbin Spieldenner HIDE CURER Work Phone: [facility] 01-02-1996 trivalent poliovirus vaccine, live, oral Marbin Spieldenner HIDE CURER Work Phone: [facility] 1995 DTP-Haemophilus influenzae type b conjugate vaccine Marbin Spieldenner HIDE CURER Work Phone: [facility] 1995 trivalent poliovirus vaccine, live, oral Marbin Spieldenner HIDE CURER Work Phone: [facility] 1995 DTP-Haemophilus influenzae type b conjugate vaccine Marbin Spieldenner HIDE CURER Work Phone: [facility] 1995 hepatitis B vaccine, pediatric or pediatric/adolescent dosage Marbin Spieldenner HIDE CURER Work Phone: [facility] 1995 trivalent poliovirus vaccine, live, oral Marbin Spieldenner HIDE CURER Work Phone: [facility] 1995 hepatitis B vaccine, pediatric or pediatric/adolescent dosage Marbin Spieldenner HIDE CURER Work Phone: [facility] Payers Date Payer Category Payer Self-pay [id number] 2020 [employer] [facility] [employer] [id number] 2020 Private Health Insurance [id number] 2017 Private Health Insurance 2017 Unknown [id number] 1995 Unknown [id number] 2.16840.1.051333.3.579. 2. 1995 Unknown [id number] 2.16840.1.788291.3.579. 2 1995 Unknown [id number] 2.840.1.478006.3.579. 2. 1995 Unknown [id number] 2.840.1.186599.3.579. 2. 1995 Unknown [id number] 2.840.1.009157.3.579. 2 1995 Unknown [id number] 2.16840.1.011525.3.579. 2. 1995 Unknown [id number] 2.16840.1.735670.3.579. 2. 1995 Unknown [id number] 2.16840.1.500090.3.579. 2.983 1995 Unknown [id number] 2.16840.1.283232.3.579. 2. 1995 Unknown [id number] 2.16840.1.957123.3.579. 2. 1995 Unknown [id number] 2.16840.1.799461.3.579. 2.90 1995 Unknown [id number] 2.16840.1.469596.3.579. 2. 1995 Unknown [id number] 2.840.1.034415.3.579. 2 1995 Unknown [id number] 2.840.1.310275.3.579. 2 1995 Unknown [id number] 2.840.1.706463.3.579. 2 1995 Unknown [id number] 2.840.1.002704.3.579. 2 1995 Unknown [id number] 2.840.1.391117.3.579. 2 1995 Unknown [id number] 2.840.1.549459.3.579. 2 1995 Unknown [id number] .1.224339.3.579. 2 1995 Unknown [id number] 2.840.1.085362.3.579. 2 1995 Unknown [id number] 20.1.861531.3.579. 2 1995 Unknown [id number] 840.1.265848.3.579. 2 1995 Unknown [id number] 84.1.653722.3.579. 2 1995 Unknown [id number] 2.840.1.892005.3.579. 2 1995 Unknown [id number] 2840.1.340457.3.579. 2 1995 Unknown [id number] 2.840.1.053488.3.579. 2 1995 Unknown [id number] 840.1.240310.3.579. 2 1995 Unknown [id number] 2.16.840.1.091484.3.579. 2.903 1995 Unknown [id number] 2.16.840.1.646994.3.579. 2.903 1995 Unknown [id number] 2.16.840.1.569673.3.579. 2.903 1995 Unknown [id number] 2.16.840.1.644169.3.579. 2.903 1995 Unknown [id number] 2.16.840.1.119783.3.579. 2.903 1995 Unknown [id number] 2.16.840.1.356895.3.579. 2.90 Unknown [id number] 2.16.840.1.985001.3.579. 2.462 Unknown [id number] 2.16.840.1.329740.3.579. 2.462 Social History Date Type Detail Facility [facility] Work Phone: Start: 01-09-2022 End: 03-23-2022 Tobacco smoking status NCIS Unknown if ever smoked [facility] Work Phone: Start: 01-18-2021 Non-smoker [facility] Start: 1995 Sex Assigned At Female [facility] Start: 08-11-2014 End: 11-07-2023 Tobacco smoking status NHIS Never smoked tobacco [employer] Work Phone: Start: 08-11-2014 End: 11-07-2023 Tobacco use and exposure Smokeless tobacco non-user [employer] Work Phone: Start: 02-20-2022 End: 10-22-2022 Alcohol intake Current drinker of alcohol (finding) [employer] Work Phone: Start: 02-20-2022 End: 05-04-2025 Alcohol intake [facility] Start: 03-27-2022 End: 02-22-2023 Exposure to SARS-CoV-2 (event) Not sure [employer] Work Phone: Start: 08-02-2022 End: 06-22-2025 Alcohol intake Ex-drinker (finding) [facility] Start: 1995 Sex Assigned At Not on file [facility] Start: 11-21-2022 History SDOH Alcohol Frequency 1 [facility] Start: 11-21-2022 History SDOH Alcohol Std Drinks 0 [facility] Start: 11-21-2022 History SDOH IPV Fear 2 [facility] Start: 01-07-2023 End: 11-05-2023 Alcohol intake Lifetime non-drinker (finding) [facility] Start: 01-07-2023 End: 05-04-2025 Tobacco use panel [facility] Start: 02-16-2019 Gender identity Identifies as female gender (finding) [facility] Start: 02-16-2019 Sexual orientation Heterosexual (finding) [facility] Within the last year , have you been afraid of your partner or ex-partner? No [facility] How often to you hav e a drink containing alcohol? Never [facility] Start: 08-13-2017 How many standard drinks containing alcohol do you have on a typical day? Patient does not drink [facility] (I/We) worried derrell er (my/our) food would run out before (I/we) got money to buy more. Never true [facility] Start: 05-31-2023 End: 02-05-2024 Alcohol intake Current non-drinker of alcohol (finding) [facility] Start: 04-02-2022 Sex Female (finding) [facility] Start: 09-30-2024 Alcohol Comment Only socially which is rare [facility] Medical Equipment Procedure Code Equipment Code Equipment Origin al Text Equipment Identifier Dates Clip Med Lg 5.5m m [facility] - [id number] Start: 11-21-2022 1 syringe as needed (with DHE). Start: 06-11-2023 Comment on above: 1 syringe as needed (with DHE). Functional Status Date Assessment Result Facility 05-04-2025 Patient Health Quest ionnaire 2 item (PHQ-2) [Reported] [facility] 05-04-2025 Little interest or p razia in doing things Not at all 05/04/2025 6:25 PM EDT Mychart, Generic Not at all [facility] 05-04-2025 Feeling down, depres sed, or hopeless More than half the days 05/04/2025 6:25 PM EDT Mychart, Generic More than half the days [facility] Mental Status Date Assessment Result Facility 03-21-2022 Cognitive function Level Of Cons ciousness Awake;Alert;Appropriate;Follow s Commands [facility] Work Phone: 09-22-2021 Cognitive function Voice/Name [facility] Work Phone: Clinical Notes 12-14-2020 to 07-08-2025 Sukhdeep Chan MA - 06/25/2025 9:30 AM EDTObdulia Garcia MD - 06/25/2025 9:30 AM EDTTelephone Encounter - Vandana Campbell RN - 05/06/2025 8:39 AM EDTAndrea Johnson MA - 05/05/2025 8:30 AM EDT Note Date & Type Note Facility 07-08-2025 Note HNO ID: [id number] Author: BAIRON KELSEY ? Service: Pharmacy Author Type: Business Integration Manager Type: Plan of Care Filed: 07/08/2025 16:52 Note Text: PHARMACY BEDSIDE DELIVERY SERVICE Patient Name: Jaya Hopson The marked outpatient medications were Filled at: [facility] and delivered to the patient's bedside to patient Medication List START taking these medications acetaminophen 500 mg tablet Commonly known as: TYLENOL 1 tablet by ORAL/FEEDING TUBE route every 6 hours as needed for fever (specify temp.) or pain. MEDICATION: OTC methocarbamol 750 mg tablet Commonly known as: ROBAXIN Take 1 tablet by mouth three times a day as needed (muscle spasms). MEDICATION: DELIVERED ondansetron orally disintegrating 4 mg disintegrating tablet Commonly known as: ZOFRAN ODT Dissolve 1 tablet on the tongue every 8 hours as needed for nausea/vomiting. MEDICATION: DELIVERED oxyCODONE IR 5 mg immediate release tablet Commonly known as: ROXICODONE Take 1-2 tablets by mouth every 4 hours as needed for pain for up to 5 days. MEDICATION: DELIVERED CONTINUE taking these medications albuterol HFA 90 mcg/actuation inhaler Commonly known as: PROVENTIL HFA, VENTOLIN HFA Inhale 2 Puffs as instructed every 4 hours as needed for wheezing/shortness of breath. ARIPiprazole 5 mg tablet Commonly known as: ABILIFY Biotin 10,000 mcg Cap CALCIUM 600 PO Magnesium 250 mg Tab medroxyPROGESTERone 150 mg/mL injection Commonly known as: DEPO-PROVERA Inject 1 mL intramuscularly every 12 weeks. sertraline 50 mg tablet Commonly known as: ZOLOFT traZODone 50 mg tablet Commonly known as: DESYREL UBRELVY 100 mg tablet Generic drug: ubrogepant Take 1 tablet by mouth as needed (take at onset of migraine, repeat in 2 hours). VITAMIN B-1 50 mg tablet Generic drug: thiamine VITAMIN B-12 500 mcg tablet Generic drug: cyanocobalamin Vitamin D-3 50 mcg (2,000 unit) tablet Generic drug: cholecalciferol WOMEN'S MULTIVITAMIN PO You might also be taking other medications not listed above. If you have questions about any of your other medications, talk to the person who prescribed them or your Primary Care Provider. STOP taking these medications EMGALITY PEN 120 mg/mL pen Generic drug: galcanezumab-gnlaura Kelsey PAGER: July 08, 2025 4:52 PM [facility] 07-07-2025 Note HNO ID: [id number] Author: PREET THOMPSON PA-C Service: Neurosurgery Author Type: Physician Learning Coach Type: Progress Notes Filed: 07/07/2025 14:26 Note Text: NEURO SURGERY PROGRESS NOTE Account #: Data Unavailable Date of Evaluation: 07/07/2025 Admission Date: 07/05/2025 Time of Evaluation: 2:24 PM Attending: Dr. Sanchez, Rickie Garzon,*. Location: [id number] Sat-4p: Preet Thompson PA-C [id number] Sat-4p: See Treatment Team or daily note technical proposal writer Evening Coverage: 4p-6p: Celia Eastman, HIDE CURER [phone], 6p-6a: NeuroSurg MELISSA Night occupational rehabilitation aide Subjective 07/05/2025 2 Days Post-Op S/P: Chiari decompression INTERVAL HPI: Ms. Hopson reports nausea is improving today. Pain in posterior neck persists. Pain in posterior neck the radiates slightly to the shoulders. Dizziness was a little better today with therapy, slightly less dizzy when up. Patient denies excessive pain, chest pain, shortness of breath, constipation, and difficulty voiding. Overnight events: none. MEDICATIONS: Current Facility-Administered Medications Medication Dose Route Frequency albuterol HFA 90 mcg/actuation 2 puff (PROVENTIL HFA, VENTOLIN HFA) 2 puff INHALATION q 4 H PRN traZODone 25 mg tab(s) (DESYREL) 25 mg ORAL AT BEDTIME PRN cholecalciferol 1,000 Units tab(s) (VITAMIN D3) 1,000 Units ORAL DAILY cyanocobalamin 500 mcg tab(s) (VITAMIN B-12) 500 mcg ORAL DAILY magnesium oxide 200 mg tab(s) (MAG-OX) 200 mg ORAL DAILY thiamine 50 mg tab(s) (VITAMIN B1) 50 mg ORAL DAILY ondansetron (PF) 4 mg injection (ZOFRAN) 4 mg INTRAVENOUS q 6 H PRN prochlorperazine 10 mg injection (COMPAZINE) 10 mg INTRAVENOUS q 6 H PRN NaCl 0.9% iv flush bag 20 mL INTRAVENOUS PRN acetaminophen 1,000 mg tab(s) (TYLENOL) 1,000 mg ORAL/FEEDING TUBE q 6 H oxyCODONE IR 5-10 mg tab(s) (ROXICODONE) 5-10 mg ORAL/FEEDING TUBE q 4 H PRN hydrALAZINE 5-20 mg injection (APRESOLINE) 5-20 mg INTRAVENOUS q 30 MIN PRN ARIPiprazole 5 mg tablet (ABILIFY) 5 mg ORAL DAILY sertraline 50 mg tab(s) (ZOLOFT) 50 mg ORAL DAILY methocarbamol 750 mg tab(s) (ROBAXIN) 750 mg ORAL/FEEDING TUBE QID senna-docusate 8.6-50 mg 2 tablet (SENNA-S) 2 tablet ORAL/FEEDING TUBE BID morphine 2 mg injection 2 mg INTRAVENOUS q 3 H PRN lidocaine 4 % 2 patch (SALONPAS) 2 patch TRANSDERMAL DAILY And lidocaine patch - REMOVE OTHER AT BEDTIME And lidocaine - VERIFY PATCH OTHER q 8 H Objective PHYSICAL EXAM: General: AANDO x 3 and in no apparent distress. Lungs: Clear to auscultation bilaterally. No excessive effort. Cardiac: RRR Abdomen: soft, nontender, nondistended Skin: headwrap clean and dry Psychiatric: Appropriate mood and affect Neurological: Cranial Nerves: FS, TM, PERRLA, EOMI. Motor: RUE: delt 5/5, bicep 5/5, tricep 5/5, intensive care nurse 5/5 LUE: delt 5/5, bicep 5/5, tricep 5/5, intensive care nurse 5/5 RLE: HF 5/5, KE 5/5, DF 5/5, PF 5/5, EHL 5/5 LLE: HF 5/5, KE 5/5, DF 5/5, PF 5/5, EHL 5/5 Speech: appropriate Sensory: Normal sensory exam Cerebellar: Drift: Neg LABS: Recent Labs 07/07/25 0637 07/06/25 0740 WBC 6.84 8.68 HB 11.6 12.0 HCT 34.4* 36.3 PLT 101* 109* NA 137 139 K 4.0 4.0 CHLOR 104 106 CO2 23 22 BUN 12 10 CREAT 0.63 0.73 GLUC 97 100* CA 8.7 8.9 VITAL SIGNS 24 HOUR REVIEW: 07/07/25 0800 07/07/25 1000 07/07/25 1200 07/07/25 1202 BP: 133/84 127/72 129/82 114/77 Pulse: 68 89 71 104 Resp: 19 14 16 Temp: 36.9 ?C (98.5 ?F) 37.1 ?C (98.8 ?F) TempSrc: SpO2: 100% 100% 100% 100% Weight: Height: Assessment AND Plan Chiari malformation type I (HCC) POA Assessment: 07/05: Chiari decompression PLAN: Bowel regimen Ambulate 3x daily No Imaging No drain Maintain headwrap x 2 weeks PTOT - [facility] RNF pending Anticipated Discharge: home: Approximately 1-2 days pending pain and nausea control Anxiety and depression Assessment: POA, managed as outpatient Home meds: abilify, zoloft PLAN: Monitor Continue home regimen Obesity, Class I, BMI 30-34.9 Assessment: Obesity -CCF weight loss info PATIENT CHECK LIST: PTOT: [facility] Consults: None Balbuena: No Drains: No Central Line: No AC/AP prior to admission: None Imaging pending: None Last BM: [employer] Preet Thompson, PA-C Neurosurgery The above was discussed with the Attending Physician: Rickie Sanchez,* [facility] 07-07-2025 Note HNO ID: [id number] Author: CHAVA OLIVERA RN Service: Care Management Author Type: Registered Nurse Type: Care Mgt Progress Note Filed: 07/07/2025 11:35 Note Text: CARE MANAGEMENT PROGRESS NOTE SERVICE DATE: 07/07/2025 SERVICE TIME: 11:34 AM LOS: 2 days [facility] accepting for PT/OT. F2F is in. Parents to transport on discharge. CM will continue to follow. SIGNATURE: Chava Olivera RN PATIENT NAME: Jaya Hopson DATE: July 07, 2025 TIME: 11:34 AM [facility] 07-06-2025 Note HNO ID: [id number] Author: SHARIF PRINGLE RN Service: Care Management Author Type: Registered Nurse Type: Care Mgt Initial Assessment Filed: 07/06/2025 13:36 Note Text: CARE MANAGEMENT: ASSESSMENT AND DISCHARGE PLAN SERVICE DATE: July 06, 2025 SERVICE TIME: 1:33 PM PCP: Cem Boggs DO Primary Contact: Extended Emergency Contact Information Primary Emergency Contact: Diana Hopson Address: [address] [place] [address] Mobile Relation: Mother Secondary Emergency Contact: Diaz Hopson Address: [address] [place] [address] Mobile Relation: Father Admission Status: Inpatient Insurance Provider: [employer] Discharge Planning requested by: Per Department Practice Potential Transition Plans Home OT/PT Advance Directives Current Advance Directive: None Production Internship Attempted to Assist with AD Completion: Yes Action: Patient Unwilling Current Living Arrangements and Support Lives with: Parent Type of Residence: Private Residence (House) Support: Spouse/significant other How do you manage to accomplish the following: Independent: Transportation to appointments/community, Medication Management, Ambulation, Bathe/Shower, Dress, Meals/Meal Prep, Going to the bathroom Current Services/Equipment Current Post-Acute Service(s): None Discharge Planning Patient Goal(s): Be able to go home Clio of Choice Explained: Clio of Choice Given: Yes Level of Care Discussed: Home Care Are you interested in bedside delivery of your medications? No Discharge Planning Participant(s): Patient Patient/Family Comments: Caregiver Assessment: Caregiver is ready, willing and able to meet the patient's needs as recommended by the inter-professional team: Yes Name of Caregiver: parents Transport at Discharge: Transportation Arrangements: Car Needs Prior to Discharge: Needs Prior to Discharge: Other: See Comment (medical clearance, accepting HHC) Post-Acute Discharge Plan: Per EMR, 30 yoF s/p chiari decompression 07/05. On RA, skilled for home PT. F2F complete. CM met with patient at bedside. Per patient, she lives with her parents, IPTA, no DME. Declines completing AD at this time. No preference for HHC. Agreeable to CM sending multiple referrals. Per patient, she sent absence paperwork to Dr. Sanchez via [employer] and asked about the status. CM notified primary team. Parents to transport and assist at discharge. CM will continue to follow for discharge planning needs. Please contact CM listed in Care Team for assistance. SIGNATURE: Sharif Pringle RN PATIENT NAME: Jaya Hopson DATE: July 06, 2025 TIME: 1:33 PM [facility] 07-06-2025 Note HNO ID: [id number] Author: PREET THOMPSON PA-C Service: Neurosurgery Author Type: Physician Learning Coach Type: Progress Notes Filed: 07/06/2025 12:29 Note Text: NEURO SURGERY PROGRESS NOTE Account #: Data Unavailable Date of Evaluation: 07/06/2025 Admission Date: 07/05/2025 Time of Evaluation: 12:29 PM Attending: Dr. Sanchez, Rickie Garzon,*. Location: [id number] Sat-4p: Preet Thompson PA-C [id number] Sat-4p: See Treatment Team or daily note technical proposal writer Evening Coverage: 4p-6p: Celia Eastman, HIDE CURER [phone], 6p-6a: NeuroSurg MELISSA Night occupational rehabilitation aide Subjective 07/05/2025 1 Day Post-Op S/P: Chiari decompression INTERVAL HPI: Ms. Hopson reports Pain in posterior neck the radiates slightly to the shoulders. Patient able to eat small amounts this morning. States that she is a little dizzy with mobilization. Patient denies excessive pain, chest pain, shortness of breath, constipation, and difficulty voiding. Overnight events: none. MEDICATIONS: Current Facility-Administered Medications Medication Dose Route Frequency albuterol HFA 90 mcg/actuation 2 puff (PROVENTIL HFA, VENTOLIN HFA) 2 puff INHALATION q 4 H PRN traZODone 25 mg tab(s) (DESYREL) 25 mg ORAL AT BEDTIME PRN cholecalciferol 1,000 Units tab(s) (VITAMIN D3) 1,000 Units ORAL DAILY cyanocobalamin 500 mcg tab(s) (VITAMIN B-12) 500 mcg ORAL DAILY magnesium oxide 200 mg tab(s) (MAG-OX) 200 mg ORAL DAILY thiamine 50 mg tab(s) (VITAMIN B1) 50 mg ORAL DAILY ondansetron (PF) 4 mg injection (ZOFRAN) 4 mg INTRAVENOUS q 6 H PRN prochlorperazine 10 mg injection (COMPAZINE) 10 mg INTRAVENOUS q 6 H PRN NaCl 0.9% iv flush bag 20 mL INTRAVENOUS PRN acetaminophen 1,000 mg tab(s) (TYLENOL) 1,000 mg ORAL/FEEDING TUBE q 6 H oxyCODONE IR 5-10 mg tab(s) (ROXICODONE) 5-10 mg ORAL/FEEDING TUBE q 4 H PRN hydrALAZINE 5-20 mg injection (APRESOLINE) 5-20 mg INTRAVENOUS q 30 MIN PRN ARIPiprazole 5 mg tablet (ABILIFY) 5 mg ORAL DAILY sertraline 50 mg tab(s) (ZOLOFT) 50 mg ORAL DAILY methocarbamol 750 mg tab(s) (ROBAXIN) 750 mg ORAL/FEEDING TUBE QID senna-docusate 8.6-50 mg 2 tablet (SENNA-S) 2 tablet ORAL/FEEDING TUBE BID morphine 2 mg injection 2 mg INTRAVENOUS q 3 H PRN lidocaine 4 % 2 patch (SALONPAS) 2 patch TRANSDERMAL DAILY And lidocaine patch - REMOVE OTHER AT BEDTIME And lidocaine - VERIFY PATCH OTHER q 8 H Objective PHYSICAL EXAM: General: AANDO x 3 and in no apparent distress. Lungs: Clear to auscultation bilaterally. No excessive effort. Cardiac: RRR Abdomen: soft, nontender, nondistended Skin: headwrap clean and dry Psychiatric: Appropriate mood and affect Neurological: Cranial Nerves: FS, TM, PERRLA, EOMI. Motor: RUE: delt 5/5, bicep 5/5, tricep 5/5, intensive care nurse 5/5 LUE: delt 5/5, bicep 5/5, tricep 5/5, intensive care nurse 5/5 RLE: HF 5/5, KE 5/5, DF 5/5, PF 5/5, EHL 5/5 LLE: HF 5/5, KE 5/5, DF 5/5, PF 5/5, EHL 5/5 Speech: appropriate Sensory: Normal sensory exam Cerebellar: Drift: Neg LABS: Recent Labs 07/06/25 0740 WBC 8.68 HB 12.0 HCT 36.3 PLT 109* NA 139 K 4.0 CHLOR 106 CO2 22 BUN 10 CREAT 0.73 GLUC 100* CA 8.9 VITAL SIGNS 24 HOUR REVIEW: 07/06/25 0519 07/06/25 0600 07/06/25 0800 07/06/25 1000 BP: 127/74 123/81 119/74 124/71 Pulse: 96 88 78 90 Resp: 19 18 18 20 Temp: 36.7 ?C (98.1 ?F) TempSrc: SpO2: 99% 99% 100% 100% Weight: Height: Assessment AND Plan Chiari malformation type I (HCC) POA Assessment: 07/05: Chiari decompression PLAN: Bowel regimen Ambulate 3x daily Dc balbuena No Imaging No drain Maintain headwrap x 2 weeks PTOT - [facility] Anticipated Discharge: home: Approximately 2-3 days pending pain and nausea control Anxiety and depression Assessment: POA, managed as outpatient Home meds: abilify, zoloft PLAN: Monitor Continue home regimen Obesity, Class I, BMI 30-34.9 Assessment: Obesity -[facility] weight loss info PATIENT CHECK LIST: PTOT: [facility] Consults: None Balbuena: No Drains: No Central Line: No AC/AP prior to admission: None Imaging pending: None Last BM: AMAURI Thompson PA-C Neurosurgery The above was discussed with the Attending Physician: Rickie Sanchez,* [facility] 07-05-2025 Note HNO ID: [id number] Author: JACINTO GARCÍA MD Service: Neurosurgery Author Type: Resident Type: Plan of Care Filed: 07/05/2025 12:55 Note Text: Neurosurgery Postop Check Note: Name: Jaya Hopson EXAM: Waking up from anesthesia Oriented x 3 PERRL FS BUE 5/5 BLE 5/5 headwrap c/d/i Plan: 30F PMH T1 Chiari malformation, migraines, asthma, GERD, anxiety/depression presenting with worsening fainting and dizzy spells, FUENTES 07/05 - chiari decompression - PACU to SDU - Pain control - Periop abx - vanc - PT/OT Jacinto García MD Neurosurgery PGY4 Pager: [phone] July 05, 2025 12:55 PM Please page [phone] after 6pm and weekends [facility] 07-05-2025 Note HNO ID: [id number] Author: MADALYN GUAJARDO MD Service: ? Author Type: Fellow Type: Anesthesia Procedure Notes Filed: 07/05/2025 08:47 Note Text: ANESTHESIOLOGY PROCEDURE NOTE PIV General Information Procedure Start Time/Medication Administration: 07/05/2025 7:50 AM Procedure End Time: 07/05/2025 7:51 AM Patient Location: OR Staffing Anesthesiologist: Socrates Renteria MD Performed by: anesthesiologist Preparation Sterility Preparation: hand hygiene performed prior to procedure, surgical cap used, mask used, skin prep agent completely dried prior to procedure Site Prep: Chloraprep Procedure Details Indication: need for IV access Needle Size/Type: 16 gauge angiocath Orientation: Right Location: Wrist Imaging Guidance Used: No SIGNATURE: Madalyn Guajardo MD PATIENT NAME: Jaya Hopson DATE: July 05, 2025 TIME: 8:47 AM CSN: [id number] [facility] 07-05-2025 Note HNO ID: [id number] Author: SOCRATES RENTERIA MD Service: ? Author Type: Anesthesiologist Type: Anesthesia Procedure Notes Filed: 07/05/2025 09:51 Note Text: ANESTHESIOLOGY PROCEDURE NOTE A-Line General Information Procedure Start Time/Medication Administration: 07/05/2025 7:54 AM Procedure End Time: 07/05/2025 7:55 AM Patient location during procedure: OR Timeout Performed Pre-procedure: timeout performed Indications: continuous blood pressure monitoring Staffing Anesthesiologist: Socrates Renteria MD Fellow: Madalyn Guajardo MD Performed by: fellow Preparation Sterility Preparation: hand hygiene performed prior to procedure, surgical cap used, mask used, skin prep agent completely dried prior to procedure Site Prep: Chloraprep Procedure Details Catheter Type: arterial line Catheter Size: 20 G Catheter Length: 12 cm Micropuncture Kit Used: No Guidewire Used: Yes Guidewire Removed Intact: Yes Laterality: left Site: radial artery Ultrasound Guided: Yes Image in Chart: No Sites: potential access sites evaluated, selected vessel patent, concurrent real time ultrasound visualization of vascular needle entry Vessel: target vessel identified and guidewire advanced into vessel Line Secured: Tegaderm Events Events: patient tolerated procedure well with no complications Comments For the arterial line placement procedure, I was physically present for the entire procedure.. Socrates Renteria MD SIGNATURE: Madalyn Guajardo MD PATIENT NAME: Jaya Hopson DATE: July 05, 2025 TIME: 8:45 AM CSN: [id number] [facility] 07-05-2025 Note HNO ID: [id number] Author: MADALYN GUAJARDO MD Service: ? Author Type: Fellow Type: Anesthesia Procedure Notes Filed: 07/05/2025 08:44 Note Text: ANESTHESIOLOGY PROCEDURE NOTE Airway General Information Procedure Start Time/Medication Administration: 07/05/2025 7:46 AM Procedure End Time: 07/05/2025 7:47 AM Patient location during procedure: OR Timeout Performed Pre-procedure: timeout performed Consent Obtained: Yes Patient identity confirmed: arm band Staffing Fellow: Madalyn Guajardo MD Performed by: fellow Indications and Patient Condition Indications for airway management: anesthesia Preoxygenated: yes anesthesia circuit Method: rapid sequence Cricoid Pressure: Yes Difficult Mask: No Final Airway Details Final airway type: endotracheal airwayFinal Endotracheal Airway: ETT Cuffed: yes Successful intubation technique: video laryngoscopy Devices used: Glidescope Endotracheal tube insertion site: oral Blade: Ede Blade size: #3 ETT size (mm): 7.0 Measured from: lips Measurement (cm): 21 Placement verified by: capnometry Cormack-Lehane Classification: grade I - full view of glottis Number of attempts at approach: 1 Airway not difficult SIGNATURE: Madalyn Guajardo MD PATIENT NAME: Jaya Hopson DATE: July 05, 2025 TIME: 8:43 AM CSN: [id number] [facility] 06-28-2025 Note HNO ID: [id number] Author: VANDANA CAMPBELL RN Service: ? Author Type: Registered Nurse Type: Progress Notes Filed: 06/28/2025 10:38 Note Text: Neuro SPINE CARE COORDINATION PRE-OP VISIT Spoke with patient for pre op education. Given both written and verbal instructions re : Skin prep, wound care, pain management and post op restrictions. Provided to patient: [facility] Surgery Guide, skin prep supplies, Spine Surgery Pre/post op education packet. Yes Reviewed with patient to report to desk [facility] for surgery ? Yes. Reviewed with the patient to call [phone] the day before to get surgery report time? Yes. Patient aware eat nothing after midnight prior to surgery, clear liquids only until 2 hours before report time. Yes. Patient aware surgery will be INPATIENT. Discussed care post discharge : Self care. Does patient have transportation to and from surgery ? Yes. Falls Education provided ? Yes Nasal swab obtained ? Yes. Patient instructed in mupirocin treatment : NEGATIVE. Questions answered and patient voice(s) understanding via teach back. Physical Therapy : NO Additional Comments : Post -op Support parents. Vandana Campbell RN [facility] 06-25-2025 History of Present illness Narrative [facility] ROOMING NOTE POST WEIGHT LOSS SURGERY FOLLOW UP Patient: Jaya Hopson Service Date: 06/25/2025 Patient is 2 year(s) s/p RnY Gastric Bypass Today's Metrics: Surgical Visits (Including FPOV) Height: 5' 5 (165.1 cm) Weight: 198 lb 3.2 oz (89.9 kg) BMI: 32.98 Weight Change: 1.6 lbs Total Weight Change: -104.8 lbs % EBWL: 63% Post-op Weight Metrics: Surgical Visits (Including FPOV) Height: 5' 5 (165.1 cm) Weight: 198 lb 3.2 oz (89.9 kg) BMI: 32.98 Weight Change: 1.6 lbs Total Weight Change: -104.8 lbs % EBWL: 63% (From Surgical Weight Loss Tracker) Patient has the following questions: None Reported Pain: Patient rates pain on scale 0-10 as: 0 Exercise Compliance: Exercising: yes If yes: Type: walking Times per week: 5 Min per session: 30 Falls Risk Assessment Patient does not take medications which affect BP or mental status Patient does not t have newly prescribed or changed dosage of medications within past 30 days which affect BP or mental status Patient has not fallen in the past 2 months Patient does not t demonstrate unsteady gait Patient uses the following ambulatory assistive devices: none Patient states the presence of the following traits which increases risk of fall: none Patient is not on home O2 Pre-op Weight Metrics: Labs Completed: no - If NO, patient instructed to get labs drawn today or GIL If YES: Labs completed at [facility]? no If yes see Labs Tab Labs completed at Non-[facility] facility? N/A If yes see Encounters Tab - Orders only - Historical Provider - Date: Completed by: Sukhdeep Chan MA [facility] POST-OP WEIGHT LOSS MANAGEMENT PROGRESS NOTE FOLLOW UP HPI, PHYSICAL EXAMINATION & PLAN HPI: Patient here today for follow up for weight loss management following surgical weight loss Weight trend since last visit: gained 2 lbs over 3 m stable This patient's excess weight is causing the following co-morbid conditions at this time: Other weight regain after bariatric surgery Plan Physical Examination: Blood pressure 125/84, pulse 67, height 5' 5 (1.651 m), weight 198 lb 3.2 oz (89.9 kg). General: This patient is alert and oriented X3 General: This patient is awake, alert, and oriented, and is in no apparent distress. Extremities: No cyanosis, clubbing or edema/ No calf tenderness/No restrictions of movement, is ambulatory without assistance. Neurological: Intact x 4 extremities, no focal deficits notes. Skin: No rashes or lesions noted. Social History: This patient is unaccompanied for the evaluation today. She does not smoke, and does not drink alcohol. Current Diet This patient s current diet is:80% meal plan Her diet contains adequate amounts of protein, adequate amounts of healthy fats, adequate amounts of green, leafy vegetables, and adequate amounts of fruits. Her comfort foods include:none Current Activity This patient currently does exercise for 45 Minutes per session, 5 times per week, including the following: walking. Current Eating Behaviors This patients demonstrates the following behaviors as they relate to her eating:structred She eats approximately 5-6 times per day. Her last meal/snack was at 6 am/pm. Progress Made Towards Goals: 3 month weight goal: 10 6 month weight goal: 10 12 month weight goal: 0 Plan: S/P bariatric surgery stable Deficiency of multiple nutrient elements Other specified intestinal malabsorption Continue current management, continue weight loss program Focus on the meal structure, composition and portion control Reminders for meals and water Obesity class 1 Continue current management, continue weight loss program Stable Will stop wegovy due to nausea Will continue healthy lifestyle after bariatric surgery Discuss how to focus on meal composition, portion control after the upcoming surgery [x] Protein goal of 1g protein per 1 kg of ideal body weight: 65-75 grams [x] Patient advised to maintain a food/exercise/behavior diary until next physician visit. Pt to bring the completed diary to next visit Physician Diet Recommendations given to patient See Follow up Section of today's encounter for next visit and additional scheduling orders I spent a total of 30 minutes on the day of the visit discussing/counseling the patient regarding the post operative management listed below. 1. Adherence to nutrient-dense foods,containing sufficient amounts of lean proteins and fibers. Fluid 30 minutes before or after meals. 1 cup is the maximum meal size. 2. Physical activity - aerobic physical activity 150-300 min/wk and strength training 2-3 times per wk. 3. Continue wegovy 4. Weight maintenance after bariatric surgery discussed documented in this encounter [facility] 06-25-2025 Note [facility] POST-OP WEIGHT LOSS MANAGEMENT PROGRESS NOTE FOLLOW UP HPI, PHYSICAL EXAMINATION & PLAN HPI: Patient here today for follow up for weight loss management following surgical weight loss Weight trend since last visit: gained 2 lbs over 3 m stable This patient's excess weight is causing the following co-morbid conditions at this time: Other weight regain after bariatric surgery Plan Physical Examination: Blood pressure 125/84, pulse 67, height 5' 5 (1.651 m), weight 198 lb 3.2 oz (89.9 kg). General: This patient is alert and oriented X3 General: This patient is awake, alert, and oriented, and is in no apparent distress. Extremities: No cyanosis, clubbing or edema/ No calf tenderness/No restrictions of movement, is ambulatory without assistance. Neurological: Intact x 4 extremities, no focal deficits notes. Skin: No rashes or lesions noted. Social History: This patient is unaccompanied for the evaluation today. She does not smoke, and does not drink alcohol. Current Diet This patient?s current diet is:80% meal plan Her diet contains adequate amounts of protein, adequate amounts of healthy fats, adequate amounts of green, leafy vegetables, and adequate amounts of fruits. Her comfort foods include:none Current Activity This patient currently does exercise for 45 Minutes per session, 5 times per week, including the following: walking. Current Eating Behaviors This patients demonstrates the following behaviors as they relate to her eating:structred She eats approximately 5-6 times per day. Her last meal/snack was at 6 am/pm. Progress Made Towards Goals: 3 month weight goal: 10 6 month weight goal: 10 12 month weight goal: 0 Plan: S/P bariatric surgery stable Deficiency of multiple nutrient elements Other specified intestinal malabsorption Continue current management, continue weight loss program Focus on the meal structure, composition and portion control Reminders for meals and water Obesity class 1 Continue current management, continue weight loss program Stable Will stop wegovy due to nausea Will continue healthy lifestyle after bariatric surgery Discuss how to focus on meal composition, portion control after the upcoming surgery [x] Protein goal of 1g protein per 1 kg of ideal body weight: 65-75 grams [x] Patient advised to maintain a food/exercise/behavior diary until next physician visit. Pt to bring the completed diary to next visit Physician Diet Recommendations given to patient See Follow up Section of today's encounter for next visit and additional scheduling orders I spent a total of 30 minutes on the day of the visit discussing/counseling the patient regarding the post operative management listed below. 1. Adherence to nutrient-dense foods,containing sufficient amounts of lean proteins and fibers. Fluid 30 minutes before or after meals. 1 cup is the maximum meal size. 2. Physical activity - aerobic physical activity 150-300 min/wk and strength training 2-3 times per wk. 3. Continue wegovy 4. Weight maintenance after bariatric surgery discussed [facility] 06-23-2025 Note HNO ID: [id number] Author: SUKHDEEP LEMUS RT(R) Service: ? Author Type: Technologist Type: Progress Notes Filed: 06/23/2025 07:20 Note Text: Radiology Service Progress Note PATIENT NAME: Jaya Hopson DATE OF SERVICE: June 23, 2025 TIME: 7:12 AM PATIENT IDENTITY VERIFICATION COMPLETED USING TWO (2) IDENTIFIERS: Name and Date of confirmed by patient verbally. FALL SCREENING: Has the patient had 2 falls in the last year or 1 fall with injury or currently using an Ambulatory Assistive Device (Walker, Cane, Wheelchair, Crutches, etc.)? No PATIENT GENDER DATA: Assigned female at . status: : No status: NO. PATIENT RELEVANT IMPLANT DATA REVIEWED: Yes PATIENT PRESENTS WITH AN IMPLANTABLE OR ATTACHED RN OCCUPATIONAL: No RADIOLOGY DEPARTMENT: MR; Exam(s) Completed: Spine: Cervical spine. Anesthesia: No. Aromatherapy Administered: No PERIPHERAL IV DATA: Not applicable SIGNED BY: RT Malu(Prateek) June 23, 2025 7:12 AM [facility] 05-06-2025 Telephone encounter Note Called patient via phone. No answer and VM unidentified. Left a message requesting a return call if needed or patient may send a MC message. [facility] 05-06-2025 Miscellaneous Notes Called patient via phone. No answer and VM unidentified. Left a message requesting a return call if needed or patient may send a MC message. General Call Caller : Jaya Contact Reason for Call : Pt has questions regarding upcoming surgery. She would like to discuss how long she will be off of work. Patient requesting return call ? Yes documented in this encounter [facility] 05-05-2025 History of Present illness Narrative [facility] ROOMING NOTE POST WEIGHT LOSS SURGERY WEIGHT LOSS MANAGEMENT Patient: Jaya Hopson Date of : 1995 Service Date: 05/05/2025 This patient is patient for the evaluation today. Reason patient is here today: follow up. Date of Weight Loss Surgery: [id number] Procedure Performed: Laparoscopic Tonio-en-Y Gastric Bypass Initial Weight: @FLOWLAST([id number])@ Today's weight has increased from the last visit Pain: Patient rates pain on scale 0-10 as: 0 Falls Risk Assessment Patient does not take medications which affect BP or mental status Patient does not have newly prescribed or changed dosage of medications within past 30 days which affect BP or mental status Patient has not fallen in the past 2 months Patient does not demonstrate unsteady gait Patient uses the following ambulatory assistive devices: none Patient states the presence of the following traits which increases risk of fall: none Patient is low risk for falls. Patient is not on home O2 Post-op Weight Metrics: %EBWL: % EBWL: 64% Weight Change Since Last Visit: Weight Change: 16.6 lbs Weight Change from Highest Pre-op Weight: Total Weight Change: -106.4 lbs Completed by: Andrea Johnson MA [facility] POST-OP WEIGHT LOSS MANAGEMENT PROGRESS NOTE FOLLOW UP HPI, PHYSICAL EXAMINATION & PLAN HPI: Patient here today for follow up for weight loss management following surgical weight loss Weight trend since last visit: gained 4 lbs over 3 m stable This patient's excess weight is causing the following co-morbid conditions at this time: Other weight regain after bariatric surgery Plan Physical Examination: BP 111/76 Pulse 98 Ht 5' 5 (1.651 m) Wt 196 lb 9.6 oz (89.2 kg) BMI 32.72 kg/m General: This patient is alert and oriented X3 General: This patient is awake, alert, and oriented, and is in no apparent distress. Extremities: No cyanosis, clubbing or edema/ No calf tenderness/No restrictions of movement, is ambulatory without assistance. Neurological: Intact x 4 extremities, no focal deficits notes. Skin: No rashes or lesions noted. Social History: This patient is unaccompanied for the evaluation today. She does not smoke, and does not drink alcohol. Current Diet This patient s current diet is:80% meal plan Her diet contains adequate amounts of protein, adequate amounts of healthy fats, adequate amounts of green, leafy vegetables, and adequate amounts of fruits. Her comfort foods include:none Current Activity This patient currently does exercise for 45 Minutes per session, 5 times per week, including the following: walking. Current Eating Behaviors This patients demonstrates the following behaviors as they relate to her eating:structred She eats approximately 5-6 times per day. Her last meal/snack was at 6 am/pm. Progress Made Towards Goals: 3 month weight goal: 10 6 month weight goal: 10 12 month weight goal: 0 Plan: S/P bariatric surgery stable Continue current management, continue weight loss program Focus on the meal structure, composition and portion control Reminders for meals and water Obesity class 1 Continue current management, continue weight loss program Stable Continue wegovy No side effects No change in dose [x] Protein goal of 1g protein per 1 kg of ideal body weight: 65-75 grams [x] Patient advised to maintain a food/exercise/behavior diary until next physician visit. Pt to bring the completed diary to next visit Physician Diet Recommendations given to patient See Follow up Section of today's encounter for next visit and additional scheduling orders I spent a total of 20 minutes on the day of the visit discussing/counseling the patient regarding the post operative management listed below. 1. Adherence to nutrient-dense foods,containing sufficient amounts of lean proteins and fibers. Fluid 30 minutes before or after meals. 1 cup is the maximum meal size. 2. Physical activity - aerobic physical activity 150-300 min/wk and strength training 2-3 times per wk. 3. Continue wegovy 4. Weight maintenance after bariatric surgery discussed documented in this encounter [facility] 05-05-2025 Note [facility] POST-OP WEIGHT LOSS MANAGEMENT PROGRESS NOTE FOLLOW UP HPI, PHYSICAL EXAMINATION & PLAN HPI: Patient here today for follow up for weight loss management following surgical weight loss Weight trend since last visit: gained 4 lbs over 3 m stable This patient's excess weight is causing the following co-morbid conditions at this time: Other weight regain after bariatric surgery Plan Physical Examination: BP 111/76 Pulse 98 Ht 5' 5 (1.651 m) Wt 196 lb 9.6 oz (89.2 kg) BMI 32.72 kg/m? General: This patient is alert and oriented X3 General: This patient is awake, alert, and oriented, and is in no apparent distress. Extremities: No cyanosis, clubbing or edema/ No calf tenderness/No restrictions of movement, is ambulatory without assistance. Neurological: Intact x 4 extremities, no focal deficits notes. Skin: No rashes or lesions noted. Social History: This patient is unaccompanied for the evaluation today. She does not smoke, and does not drink alcohol. Current Diet This patient?s current diet is:80% meal plan Her diet contains adequate amounts of protein, adequate amounts of healthy fats, adequate amounts of green, leafy vegetables, and adequate amounts of fruits. Her comfort foods include:none Current Activity This patient currently does exercise for 45 Minutes per session, 5 times per week, including the following: walking. Current Eating Behaviors This patients demonstrates the following behaviors as they relate to her eating:structred She eats approximately 5-6 times per day. Her last meal/snack was at 6 am/pm. Progress Made Towards Goals: 3 month weight goal: 10 6 month weight goal: 10 12 month weight goal: 0 Plan: S/P bariatric surgery stable Continue current management, continue weight loss program Focus on the meal structure, composition and portion control Reminders for meals and water Obesity class 1 Continue current management, continue weight loss program Stable Continue wegovy No side effects No change in dose [x] Protein goal of 1g protein per 1 kg of ideal body weight: 65-75 grams [x] Patient advised to maintain a food/exercise/behavior diary until next physician visit. Pt to bring the completed diary to next visit Physician Diet Recommendations given to patient See Follow up Section of today's encounter for next visit and additional scheduling orders I spent a total of 20 minutes on the day of the visit discussing/counseling the patient regarding the post operative management listed below. 1. Adherence to nutrient-dense foods,containing sufficient amounts of lean proteins and fibers. Fluid 30 minutes before or after meals. 1 cup is the maximum meal size. 2. Physical activity - aerobic physical activity 150-300 min/wk and strength training 2-3 times per wk. 3. Continue wegovy 4. Weight maintenance after bariatric surgery discussed [facility] 05-04-2025 Telephone encounter Note General Call Caller : Jaya Contact Reason for Call : Pt has questions regarding upcoming surgery. She would like to discuss how long she will be off of work. Patient requesting return call ? Yes [facility] [place] 04-15-2025 Note HNO ID: [id number] Author: ASPEN TAMEZ RN Service: ? Author Type: Registered Nurse Type: Progress Notes Filed: 04/15/2025 16:12 Note Text: Patient identified by name and date of . Jaya Hopson is here for a Depo Provera injection. Patient brought medication. Date last injected: 01/21/25 Depo-Provera, 150 mg, administered IM right deltoid, Lot # [id number], expiration date 05/02/2029. Depo-Provera was given without incident. Date of last menses: Patient's last menstrual period was 05/04/2024 (approximate). Irregular bleeding - No Menses ceased - Yes STD prevention discussed: Yes Patient instructed to return to clinic in 12 weeks. [email or web address] Provider Concha Stubbs DO was present in office at time of injection. Aspen Tamez RN [facility] 04-15-2025 History of Present illness Narrative Patient identified by name and date of . Jaya Hopson is here for a Depo Provera injection. Patient brought medication. Date last injected: 01/21/25 Depo-Provera, 150 mg, administered IM right deltoid, Lot # [id number], expiration date 05/02/2029. Depo-Provera was given without incident. Date of last menses: Patient's last menstrual period was 05/04/2024 (approximate). Irregular bleeding - No Menses ceased - Yes STD prevention discussed: Yes Patient instructed to return to clinic in 12 weeks. [email or web address] [email or web address] [email or web address] Provider Concha Stubbs DO was present in office at time of injection. Aspen Tamez RN documented in this encounter [facility] [place] 02-23-2025 Note HNO ID: [id number] Author: RICKIE SANCHEZ MD Service: ? Author Type: Physician Type: Progress Notes Filed: 02/23/2025 07:44 Note Text: Seen via VV with permission I have communicated my name and active licensure. The patient's identity and physical location were verified at the time of this visit. Either the patient or their legal outside energy sales representatives has been informed of the risks and benefits of -- and alternatives to -- treatment through a remote evaluation and consents to proceed with the evaluation remotely. 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 flow on Cine CXA around 130 BMI 31 (She has recently lost about 100 lbs after gastric bypass 2 years ago) Using Abilify (Psychiatry) and Emgality (FUENTES Neurology) AP We discussed the findings and I explained the implications I rec surgery but we also discussed more conservative options She interested in going ahead later in the year We discussed the risks and benefits and complications She understands and agrees I spent 45 mins reviewing the chart and discussing a plan Rickie Sanchez MD [facility] 02-23-2025 History of Present illness Narrative Seen via VV with permission I have communicated my name and active licensure. The patient's identity and physical location were verified at the time of this visit. Either the patient or their legal outside energy sales representatives has been informed of the risks and benefits of -- and alternatives to -- treatment through a remote evaluation and consents to proceed with the evaluation remotely. 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 with very little CSF flow on Cine CXA around 130 BMI 31 (She has recently lost about 100 lbs after gastric bypass 2 years ago) Using Abilify (Psychiatry) and Emgality (FUENTES Neurology) AP We discussed the findings and I explained the implications I rec surgery but we also discussed more conservative options She interested in going ahead later in the year We discussed the risks and benefits and complications She understands and agrees I spent 45 mins reviewing the chart and discussing a plan Rickie Sanchez MD documented in this encounter [facility] [place] 02-22-2025 Note HNO ID: [id number] Author: DANIEL OLIVO APRN.JUAN Service: ? 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 AJ is a 29 year old who presents for an annual gynecologic exam without complaints. She is not sexually active and requests no SSE today. Uses Depo Provera to regulate cycles Still get period: No LMP: irregular with Depo Provera control frequency: Always HPV vaccine: Unsure; HPV:N/A Last pap smear: 08/07/2023, normal History of abnormal pap: No, all prior PAP smears have been normal Bothersome pelvic pain: No Last mammogram: never Patient concerns for STD exposure: No. OB History Gravida0 Para0 Term0 Preterm0 AB0 Living0 SAB0 IAB0 Ectopic0 Multiple0 Live Births0 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 LMP: 05/04/2024, Injection Age at Menarche: 10 Age at First : Age at Menopause: 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 Comments: Sexual Activity: Not Currently; No partner data on record Contraception: Injection PAST MEDICAL HISTORY Diagnosis Date Asthma (HCC) Brain lesion Chiari malformation type I (HCC) Migraines Thrombocytopenia PAST SURGICAL HISTORY Procedure Laterality Date DENTAL SURGERY HX 2012 wisdom teeth removed GASTRIC BYPASS HX 11/21/2022 HAND SURGERY HX Left 2003 broken thumb repair TONSILLECTOMY AND ADENOIDECTOMY HX age 5 FAMILY HISTORY Problem Relation Age of Onset Diabetes Mother Hypertension Mother Heart Attack Mother Diabetes Father Prostate Cancer Father Stroke Father Diabetes Sister other (other) Sister No Known Problems Maternal Grandmother Lung Cancer Maternal Grandfather Colon Cancer Paternal Grandfather SOCIAL HISTORY Social History Tobacco Use Smoking status: Never Smokeless tobacco: Never Vaping Use Vaping status: Never Used Substance Use Topics Alcohol use: Not Currently Drug use: No REVIEW OF SYSTEMS Abdomen: No abdominal pain, nausea, vomiting, diarrhea, or constipation. No bloating, early satiety, indigestion, or increased flatulence. Bladder: No dysuria, gross hematuria, urinary frequency, urinary urgency, or incontinence. Breast: No breast lumps, nipple d/c, overlying skin changes, redness or skin retraction. Allergies and current medication updated:Yes SENSITIVE EXAM: The sensitive examination was discussed with the Patient or Patient's Authorized Grinder Mill Operator. As applicable, any other physician, advance practice provider, medical student, or other health professional student that will be observing or involved in the sensitive examination for educational or training purposes was discussed with the Patient or Authorized Grinder Mill Operator. The Patient or Authorized Grinder Mill Operator has agreed to proceed with the sensitive examination. (Sensitive examination includes inspection and/or palpation of the breasts, pelvis, prostate and anorectal regions). EXAM: BP 120/68 Ht [Pt declined[ (0.00m) Wt 0 lb (0.0kg) LMP 05/04/2024 GENERAL: pleasant, female in no apparent distress HEENT: Normocephalic, atraumatic, mucus membranes moist, and no lesions NECK: Supple and full range of motion DERMATOLOGY: Normal and without lesions BREAST: soft, non-tender, symmetric, no dominant mass, normal nipple-areolar complex, no lymphadenopathy, no nipple discharge, and fibrocystic changes CHEST: Normal inspiratory effort ABDOMEN: soft, non-tender, and no masses PELVIC: external genitalia normal, no vulvar lesions, good vaginal support, physiologic discharge present, normal appearing perineal body and perianal region BIMANUAL: deferred RECTOVAGINAL: deferred. NEURO: alert and oriented x3,exam grossly non-focal EXTREMITIES: normal ASSESSMENT/PLAN: 1) Health maintenance: Pap/HPV up to date. Nutrition, exercise and routine health maintenance exams reviewed. Lipids/glucose: followed by PCP 2) Contraception: Depo Provera. 3) STD screening: Declined STD check. 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 AJ is a 29 year old who presents for an annual gynecologic exam without complaints. She is not sexually active and requests no SSE today. Uses Depo Provera to regulate cycles Still get period: No LMP: irregular with Depo Provera control frequency: Always HPV vaccine: Unsure; HPV:N/A Last pap smear: 08/07/2023, normal History of abnormal pap: No, all prior PAP smears have been normal Bothersome pelvic pain: No Last mammogram: never Patient concerns for STD exposure: No. OB History Gravida0 Para0 Term0 Preterm0 AB0 Living0 SAB0 IAB0 Ectopic0 Multiple0 Live Births0 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 LMP: 05/04/2024, Injection Age at Menarche: 10 Age at First : Age at Menopause: 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 Comments: Sexual Activity: Not Currently; No partner data on record Contraception: Injection PAST MEDICAL HISTORY Diagnosis Date Asthma (HCC) Brain lesion Chiari malformation type I (HCC) Migraines Thrombocytopenia PAST SURGICAL HISTORY Procedure Laterality Date DENTAL SURGERY HX 2011 wisdom teeth removed GASTRIC BYPASS HX 11/21/2022 HAND SURGERY HX Left 2004 broken thumb repair TONSILLECTOMY AND ADENOIDECTOMY HX age 5 FAMILY HISTORY Problem Relation Age of Onset Diabetes Mother Hypertension Mother Heart Attack Mother Diabetes Father Prostate Cancer Father Stroke Father Diabetes Sister other (other) Sister No Known Problems Maternal Grandmother Lung Cancer Maternal Grandfather Colon Cancer Paternal Grandfather SOCIAL HISTORY Social History Tobacco Use Smoking status: Never Smokeless tobacco: Never Vaping Use Vaping status: Never Used Substance Use Topics Alcohol use: Not Currently Drug use: No REVIEW OF SYSTEMS Abdomen: No abdominal pain, nausea, vomiting, diarrhea, or constipation. No bloating, early satiety, indigestion, or increased flatulence. Bladder: No dysuria, gross hematuria, urinary frequency, urinary urgency, or incontinence. Breast: No breast lumps, nipple d/c, overlying skin changes, redness or skin retraction. Allergies and current medication updated:Yes SENSITIVE EXAM: The sensitive examination was discussed with the Patient or Patient's Authorized Grinder Mill Operator. As applicable, any other physician, advance practice provider, medical student, or other health professional student that will be observing or involved in the sensitive examination for educational or training purposes was discussed with the Patient or Authorized Grinder Mill Operator. The Patient or Authorized Grinder Mill Operator has agreed to proceed with the sensitive examination. (Sensitive examination includes inspection and/or palpation of the breasts, pelvis, prostate and anorectal regions). EXAM: BP 120/68 Ht [Pt declined[ (0.00m) Wt 0 lb (0.0kg) LMP 05/04/2024 GENERAL: pleasant, female in no apparent distress HEENT: Normocephalic, atraumatic, mucus membranes moist, and no lesions NECK: Supple and full range of motion DERMATOLOGY: Normal and without lesions BREAST: soft, non-tender, symmetric, no dominant mass, normal nipple-areolar complex, no lymphadenopathy, no nipple discharge, and fibrocystic changes CHEST: Normal inspiratory effort ABDOMEN: soft, non-tender, and no masses PELVIC: external genitalia normal, no vulvar lesions, good vaginal support, physiologic discharge present, normal appearing perineal body and perianal region BIMANUAL: deferred RECTOVAGINAL: deferred. NEURO: alert and oriented x3,exam grossly non-focal EXTREMITIES: normal ASSESSMENT/PLAN: 1) Health maintenance: Pap/HPV up to date. Nutrition, exercise and routine health maintenance exams reviewed. Lipids/glucose: followed by PCP 2) Contraception: Depo Provera. 3) STD screening: Declined STD check. 4) Follow up one year or sooner as needed Daniel Olivo APRN.CNM documented in this encounter [facility] 02-17-2025 History of Present illness Narrative [facility] PROGRESS NOTE POST WEIGHT LOSS SURGERY FOLLOW UP Patient: Jaya Hopson Service Date: 02/17/2025 Patient is 2 year(s) s/p RnY Gastric Bypass Post-op Weight Metrics: %EBWL: Weight Change Since Last Visit: Weight Change from Highest Pre-op Weight: Patient has the following questions: None Reported Pain: Patient rates pain on scale 0-10 as: 0 Exercise Compliance: Exercising: yes If yes: Type: walking Times per week: 5 Min per session: Normal Falls Risk Assessment Patient does not take medications which affect BP or mental status Patient does not t have newly prescribed or changed dosage of medications within past 30 days which affect BP or mental status Patient has not fallen in the past 2 months Patient does not t demonstrate unsteady gait Patient uses the following ambulatory assistive devices: none Patient states the presence of the following traits which increases risk of fall: none Patient is not on home O2 Pre-op Weight Metrics: Labs Completed: yes - If NO, patient instructed to get labs drawn today or GIL If YES: Labs completed at [facility]? N/A If yes see Labs Tab Labs completed at Non-[facility] facility? N/A If yes see Encounters Tab - Orders only - Historical Provider - Date: [id number] Completed by: Andrea Johnson MA [facility] POST-OPERATIVE WEIGHT LOSS MANAGEMENT PROGRESS NOTE - FOLLOW UP HPI: Patient here today for 24 month post-weight loss surgery follow up The patient is a pleasant 29 y.o. year old female. The patient is feeling well. Denies nausea, vomiting, dysphagia, or any GERD Sx. Currently is not taking a PPI. Patient states diet and exercise is going fairly well. Currently is eating 65-75 gm/day protein, and is compliant with prescribed multivitamins and supplements. Weight trend since last visit: gained 12 lbs over 8 m Weight regain Labs were Not completed. All labs were: ordered Social History Tobacco Use Smoking status: Never Smokeless tobacco: Never Substance Use Topics Alcohol use: Not Currently Alcohol/week: 1.0 standard drink of alcohol Comment: Only socially which is rare PLAN Physical Examination: BP 115/77 Pulse 64 Ht 5' 5 (1.651 m) Wt 192 lb 3.2 oz (87.2 kg) BMI 31.98 kg/m Vital signs are stable. General: This patient is awake, alert, and oriented, and is in no apparent distress. Current Diet This patient s current diet is:80% meal plan Her diet contains adequate amounts of protein, adequate amounts of healthy fats, adequate amounts of green, leafy vegetables, and adequate amounts of fruits. Her comfort foods include:none Current Activity This patient currently does exercise for 45 Minutes per session, 6 times per week, including the following: cardio. Current Eating Behaviors This patients demonstrates the following behaviors as they relate to her eating:structured She eats approximately 5-6 times per day. Her last meal/snack was at 6 am/pm. Progress Made Towards Goals: 3 month weight goal: 10 6 month weight goal: 10 12 month weight goal: 10 Plan: S/p bariatric surgery stable Continue current management, continue weight loss program Focus on the meal structure, composition and portion control Brain hunger versus stomach hunger Information on psychology is provided Weight regain Back to the healthy eating guidelines Trial of wegovy Discuss side effects in details Start fiber and miralax to prevent constipation Obesity Continue current management, continue weight loss program stable Restart wegovy [x] Protein goal of 1g protein per 1 kg of ideal body weight: 75 grams [x] Patient advised to maintain a food/exercise/behavior diary until next physician visit. Pt to bring the completed diary to next visit [] Lab order provided to patient for labs to be drawn for next visit Patient instructed to continue post-weight loss surgery diet recommendations. Patient instructed to continue to monitor for signs and symptoms of GERD Psych concerns : Yes Excessive skin concerns: No Refer to plastic surgery Physician Diet Recommendations given to patient See Follow up Section of today's encounter for next visit and additional scheduling orders Orders Placed This Encounter Procedures Zinc These orders are set for an approximate date - they can be drawn up to 3 months prior to the Expected Date on this Req. Please send results to: DO Tarik Shukla [address] [facility] [id number] - [phone] And if not done at a [facility], please send to: [facility] - [address] [place] [address], [address] [facility], [address] Patient Name: Jaya Hopson - 1995 Order Created by : Andrea Johnson MA Standing Status: Future Number of Occurrences: 1 Expected Date: 02/17/2025 Expiration Date: 02/17/2026 Folate These orders are set for an approximate date - they can be drawn up to 3 months prior to the Expected Date on this Req. Please send results to: Cem Boggs DO - [address] [facility] [address] - [phone] And if not done at a [facility], please send to: [address], [facility] Patient Name: Jaya Hopson - 1995 Order Created by : Andrea Johnson MA Standing Status: Future Number of Occurrences: 1 Expected Date: 02/17/2025 Expiration Date: 02/17/2026 Iron These orders are set for an approximate date - they can be drawn up to 3 months prior to the Expected Date on this Req. Please send results to: Cemdaron Boggs, DO - [address] [place] [address] - [phone] And if not done at a [facility], please send to: [place] [address] Patient Name: Jaya Hopson 1995 Order Created by : Andrea Johnson MA Standing Status: Future Number of Occurrences: 1 Expected Date: 02/17/2025 Expiration Date: 02/17/2026 Ferritin These orders are set for an approximate date - they can be drawn up to 3 months prior to the Expected Date on this Req. Please send results to: Cem Boggs DO - [address] [place] [address] - [phone] And if not done at a [facility], please send to: [address], [facility] Patient Name: Jaya Hopson - 1995 Order Created by : Andrea Johnson MA Standing Status: Future Number of Occurrences: 1 Expected Date: 02/17/2025 Expiration Date: 02/17/2026 Magnesium These orders are set for an approximate date - they can be drawn up to 3 months prior to the Expected Date on this Req. Please send results to: Cem Boggs, DO - [address] [place] [address] - [phone] And if not done at a [facility], please send to: [address], [address] Patient Name: Jaya Hopson - 1995 Order Created by : Andrea Johnson MA Standing Status: Future Number of Occurrences: 1 Expected Date: 02/17/2025 Expiration Date: 02/17/2026 Vitamin D Deficiency Screening (Vit D 25) These orders are set for an approximate date - they can be drawn up to 3 months prior to the Expected Date on this Req. Please send results to: Cem Boggs, DO - [address] [place] [address] - [phone] And if not done at a [facility], please send to: [address], [facility] Patient Name: Jaya [facility] 1995 Order Created by : Andrea Johnson MA Standing Status: Future Number of Occurrences: 1 Expected Date: 02/17/2025 Expiration Date: 02/17/2026 Vitamin B12 These orders are set for an approximate date - they can be drawn up to 3 months prior to the Expected Date on this Req. Please send results to: Cem Boggs, DO - [address] [place] [address] - [phone] And if not done at a [facility], please send to: [address], [address] Patient Name: Jaya Hopson 1995 Order Created by : Andrea Johnson MA Standing Status: Future Number of Occurrences: 1 Expected Date: 02/17/2025 Expiration Date: 02/17/2026 Vitamin B1, whole blood ([facility]) These orders are set for an approximate date - they can be drawn up to 3 months prior to the Expected Date on this Req. Please send results to: Cem Boggs, DO - [address] [place] [address] - [phone] And if not done at a [facility], please send to: [address], [address] [facility], [address] Patient Name: Jaya Hopson - 1995 Order Created by : Andrea Johnson MA Standing Status: Future Number of Occurrences: 1 Expected Date: 02/17/2025 Expiration Date: 02/17/2026 CBC These orders are set for an approximate date - they can be drawn up to 3 months prior to the Expected Date on this Req. Please send results to: Cem Boggs, DO - [address] [facility] [address] - [phone] And if not done at a [facility], please send to: [facility] - [address] [place] [address], [facility] [address] [facility], [address] Patient Name: Jaya Hopson - 1995 Order Created by : Andrea Johnson MA Standing Status: Future Number of Occurrences: 1 Expected Date: 02/17/2025 Expiration Date: 02/17/2026 Protein, total Standing Status: Future Number of Occurrences: 1 Expected Date: 02/17/2025 Expiration Date: 02/17/2026 Calcium Standing Status: Future Number of Occurrences: 1 Expected Date: 02/17/2025 Expiration Date: 02/17/2026 Medications ordered during this encounter: Encounter Medications[1] Visit Diagnoses: 1. S/P bariatric surgery 2. 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 Vitamin deficiency Current Medications: Patient's Medications New Prescriptions No medications on file Previous Medications ALBUTEROL 108 (90 BASE) MCG/ACT INHALER Inhale 2 puffs every 4 hours as needed. ARIPIPRAZOLE (ABILIFY) 5 MG TABLET Take 5 mg by mouth daily. BIOTIN 5000 MCG TABLET Take 5,000 mcg by mouth before bedtime. CALCIUM CITRATE PO Take 500 mg by mouth 3 times daily. CHOLECALCIFEROL (VITAMIN D-3) 100 MCG (4000 UT) CAPSULE Take 1 capsule (100 mcg) by mouth daily. CYANOCOBALAMIN (B-12) [address] 500 mcg under the tongue daily. Place 500 mcg under the tongue to dissolve once daily HYDROXYZINE PAMOATE (VISTARIL) 25 MG CAPSULE Take 25 mg by mouth in the morning and 25 mg in the evening. MAGNESIUM 500 MG CAPSULE Take by mouth Nightly. MEDROXYPROGESTERONE (DEPO-PROVERA) 150 MG/ML SUSPENSION PREFILLED SYRINGE INJECTION SYRINGE Inject 150 mg into the shoulder, thigh, or buttocks. MULTIPLE VITAMINS-MINERALS (CENTRUM WOMEN PO) Take 2 tablets by mouth before bedtime. With Iron . SEMAGLUTIDE-WEIGHT MANAGEMENT (WEGOVY) 0.25 MG/0.5ML SOLUTION AUTO-INJECTOR Inject 0.5 mL (0.25 mg) under the skin every 7 days. SERTRALINE (ZOLOFT) 25 MG TABLET Take by mouth daily. THIAMINE (VITAMIN B-1) 50 MG TABLET Take 1 tablet by mouth once daily TRAZODONE (DESYREL) 50 MG TABLET Take by mouth Nightly. UBROGEPANT (UBRELVY) 100 MG TABLET Take by mouth as needed. Modified Medications No medications on file Discontinued Medications No medications on file I spent a total of 30 minutes on the day of the visit discussing/counseling the patient regarding the post operative management listed below. 1. Adherence to nutrient-dense foods,containing sufficient amounts of lean proteins and fibers. Fluid 30 minutes before or after meals. 1 cup is the maximum meal size. 2.Food intolerance (vomiting and regurgitation,GERD, diarrhea, dumping snd and hypoglycemia) discussed 3.Micronutrient supplementation discussed 4. Physical activity - aerobic physical activity 150-300 min/wk and strength training 2-3 times per wk. 5. Counseling on no nicotine, NSAIDs, excessive caffeine and alcohol after surgery 6.weight regain Is associated with obesity and weight loss/ weight maintenance is discussed as a treatment option for weight regain 7. Weight maintenance after bariatric surgery discussed 8. Weight regain prevention after bariatric surgery discussed The patient was seen and a full chart review was performed.Clinical documentation is updated and completed. [1] Outpatient Encounter Medications as of 02/17/2025 Medication Sig Dispense Refill albuterol 108 (90 Base) MCG/ACT inhaler Inhale 2 puffs every 4 hours as needed. ARIPiprazole (Abilify) 5 MG tablet Take 5 mg by mouth daily. biotin 5000 MCG tablet Take 5,000 mcg by mouth before bedtime. CALCIUM CITRATE PO Take 500 mg by mouth 3 times daily. cholecalciferol (Vitamin D-3) 100 MCG (4000 UT) capsule Take 1 capsule (100 mcg) by mouth daily. (Patient taking differently: Take 2,000 Units by mouth daily.) 30 capsule 11 Cyanocobalamin (B-12) [address] 500 mcg under the tongue daily. Place 500 mcg under the tongue to dissolve once daily 30 tablet 11 hydrOXYzine pamoate (Vistaril) 25 MG capsule Take 25 mg by mouth in the morning and 25 mg in the evening. Magnesium 500 MG capsule Take by mouth Nightly. medroxyPROGESTERone (Depo-Provera) 150 MG/ML suspension prefilled syringe injection syringe Inject 150 mg into the shoulder, thigh, or buttocks. Multiple Vitamins-Minerals (CENTRUM WOMEN PO) Take 2 tablets by mouth before bedtime. With Iron . sertraline (Zoloft) 25 MG tablet Take by mouth daily. thiamine (Vitamin B-1) 50 MG tablet Take 1 tablet by mouth once daily 90 tablet 3 traZODone (Desyrel) 50 MG tablet Take by mouth Nightly. Ubrogepant (Ubrelvy) 100 MG tablet Take by mouth as needed. Semaglutide-Weight Management (Wegovy) 0.25 MG/0.5ML solution auto-injector Inject 0.5 mL (0.25 mg) under the skin every 7 days. (Patient not taking: Reported on 02/17/2025) 2 mL 0 No facility-administered encounter medications on file as of 02/17/2025. documented in this encounter [facility] 02-17-2025 Note BARIATRIC CARE SALINA Chandra PROGRESS NOTE POST WEIGHT LOSS SURGERY FOLLOW UP Patient: Jaya Hopson Service Date: 02/17/2025 Patient is 2 year(s) s/p RnY Gastric Bypass Post-op Weight Metrics: %EBWL: Weight Change Since Last Visit: Weight Change from Highest Pre-op Weight: Patient has the following questions: None Reported Pain: Patient rates pain on scale 0-10 as: 0 Exercise Compliance: Exercising: yes If yes: Type: walking Times per week: 5 Min per session: Normal Falls Risk Assessment Patient does not take medications which affect BP or mental status Patient does not t have newly prescribed or changed dosage of medications within past 30 days which affect BP or mental status Patient has not fallen in the past 2 months Patient does not t demonstrate unsteady gait Patient uses the following ambulatory assistive devices: none Patient states the presence of the following traits which increases risk of fall: none Patient is not on home O2 Pre-op Weight Metrics: Labs Completed: yes - If NO, patient instructed to get labs drawn today or GIL If YES: Labs completed at [facility]? N/A If yes see Labs Tab Labs completed at Non-[facility] facility? N/A If yes see Encounters Tab - Orders only - Historical Provider - Date: [id number] Completed by: Andrea Johnson MA [facility] 02-17-2025 Note BARIATRIC CARE [facility] Chandra POST-OPERATIVE WEIGHT LOSS MANAGEMENT PROGRESS NOTE - FOLLOW UP HPI: Patient here today for 24 month post-weight loss surgery follow up The patient is a pleasant 29 y.o. year old female. The patient is feeling well. Denies nausea, vomiting, dysphagia, or any GERD Sx. Currently is not taking a PPI. Patient states diet and exercise is going fairly well. Currently is eating 65-75 gm/day protein, and is compliant with prescribed multivitamins and supplements. Weight trend since last visit: gained 12 lbs over 8 m Weight regain Labs were Not completed. All labs were: ordered Social History Tobacco Use Smoking status: Never Smokeless tobacco: Never Substance Use Topics Alcohol use: Not Currently Alcohol/week: 1.0 standard drink of alcohol Comment: Only socially which is rare PLAN Physical Examination: BP 115/77 Pulse 64 Ht 5' 5 (1.651 m) Wt 192 lb 3.2 oz (87.2 kg) BMI 31.98 kg/m? Vital signs are stable. General: This patient is awake, alert, and oriented, and is in no apparent distress. Current Diet This patient?s current diet is:80% meal plan Her diet contains adequate amounts of protein, adequate amounts of healthy fats, adequate amounts of green, leafy vegetables, and adequate amounts of fruits. Her comfort foods include:none Current Activity This patient currently does exercise for 45 Minutes per session, 6 times per week, including the following: cardio. Current Eating Behaviors This patients demonstrates the following behaviors as they relate to her eating:structured She eats approximately 5-6 times per day. Her last meal/snack was at 6 am/pm. Progress Made Towards Goals: 3 month weight goal: 10 6 month weight goal: 10 12 month weight goal: 10 Plan: S/p bariatric surgery stable Continue current management, continue weight loss program Focus on the meal structure, composition and portion control Brain hunger versus stomach hunger Information on psychology is provided Weight regain Back to the healthy eating guidelines Trial of wegovy Discuss side effects in details Start fiber and miralax to prevent constipation Obesity Continue current management, continue weight loss program stable Restart wegovy [x] Protein goal of 1g protein per 1 kg of ideal body weight: 75 grams [x] Patient advised to maintain a food/exercise/behavior diary until next physician visit. Pt to bring the completed diary to next visit [] Lab order provided to patient for labs to be drawn for next visit Patient instructed to continue post-weight loss surgery diet recommendations. Patient instructed to continue to monitor for signs and symptoms of GERD Psych concerns : Yes Excessive skin concerns: No Refer to plastic surgery Physician Diet Recommendations given to patient See Follow up Section of today's encounter for next visit and additional scheduling orders Orders Placed This Encounter Procedures Zinc These orders are set for an approximate date - they can be drawn up to 3 months prior to the Expected Date on this Req. Please send results to: Cem Boggs DO - [address] [facility] [address] - [phone] And if not done at a [facility] Facility, please send to: [facility] [address], [address] Patient Name: Jaya Hopson - 1995 Order Created by : Andrea Johnson MA Standing Status: Future Number of Occurrences: 1 Expected Date: 02/17/2025 Expiration Date: 02/17/2026 Folate These orders are set for an approximate date - they can be drawn up to 3 months prior to the Expected Date on this Req. Please send results to: Cem Boggs DO - [address] [address] - [phone] And if not done at a [facility] Facility, please send to: [address], [address] Patient Name: Jaya Hopson - 1995 Order Created by : Andrea Johnson MA Standing Status: Future Number of Occurrences: 1 Expected Date: 02/17/2025 Expiration Date: 02/17/2026 Iron These orders are set for an approximate date - they can be drawn up to 3 months prior to the Expected Date on this Req. Please send results to: Cem Boggs DO - [address] [place] [address] - [phone] And if not done at a [facility], please send to: [facility] - [address] [place] [address], [address], [address] Patient Name: Jaya Montanez 1995 Order Created by : Andrea Johnson MA Standing Status: Future Number of Occurrences: 1 Expected Date: 02/17/2025 Expiration Date: 02/17/2026 Ferritin These orders are set for an approximate date - they can be drawn up to 3 months prior to the Expected Date on this Req. Please send results to: Cem Boggs DO - [address] [place] (more content not included)... [facility] 02-03-2025 Note HNO ID: [id number] Author: NORA JOLLY LPN Service: ? Author Type: LICENSED NURSE Type: Progress Notes Filed: 02/03/2025 11:10 Note Text: ED Follow-Up Note Provider Action / FYI: Per pt she is feeling better. Nora Jolly LPN Call completed by: VANESSA Patient seen in ED: Out of Network ED Contact made with Patient: Yes The patient was identified by Name and Date of . Discussed Care with: patient Patient was seen in the Emergency Department (ED) Location: [place] Date: 01/27/2025 Reason for ED Visit: Epigastric pain ED Intervention: Labs GI cocktail New Medications: Omeprazole 40 mg PO daily Medication Changes: None Does patient understand medication changes: N/A Can patient afford medication changes: N/A Patient educated on worsening symptoms and when and where to seek additional care: No Patient Education Provided including treatment plan and new orders. Patient provided with appropriate counseling: Yes [facility] 01-28-2025 Note HNO ID: [id number] Author: NORA JOLLY LPN Service: ? Author Type: LICENSED NURSE Type: Progress Notes Filed: 01/28/2025 09:33 Note Text: ED Follow-Up Note Provider Action / FYI: Call completed by: VANESSA Patient seen in ED: Out of Network ED Contact made with Patient: No, left message. Nora Jolly LPN January 28, 2025 9:33 AM [facility] 01-28-2025 History of Present illness Narrative ED Follow-Up Note Provider Action / FYI: Call completed by: VANESSA Patient seen in ED: Out of Network ED Contact made with Patient: No, left message. Nora Jolly LPN January 28, 2025 9:33 AM documented in this encounter [facility] 01-28-2025 Note Patient Outreach (AG FAMPLE) JAYA HOPSON ([id number]) 1995 F Date Time Provider Department 01/28/25 CEM BOGGS During your visit today, we recorded the following information about you: Nora Jolly LPN 01/28/2025 9:33 AM Signed ED Follow-Up Note Provider Action / FYI: Call completed by: VANESSA Patient seen in ED: Out of Network ED Contact made with Patient: No, left message. Nora Jolly LPN January 28, 2025 9:33 AM Nora Jolly LPN 02/03/2025 11:10 AM Signed ED Follow-Up Note Provider Action / FYI: Per pt she is feeling better. Nora Jolly LPN Call completed by: VANESSA Patient seen in ED: Out of Network ED Contact made with Patient: Yes The patient was identified by Name and Date of . Discussed Care with: patient Patient was seen in the Emergency Department (ED) Location: [place] Date: 01/27/2025 Reason for ED Visit: Epigastric pain ED Intervention: Labs GI cocktail New Medications: Omeprazole 40 mg PO daily Medication Changes: None Does patient understand medication changes: N/A Can patient afford medication changes: N/A Patient educated on worsening symptoms and when and where to seek additional care: No Patient Education Provided including treatment plan and new orders. Patient provided with appropriate counseling: Yes Allergies As of Date: 01/28/2025 Noted Allergy Reaction FLUOCINOLONE 08/11/2014 10 - Anaphylaxis AMOXICILLIN 08/11/2014 4 - Hives Date Reviewed: 01/21/2025 Reviewed by: Keysha Rouse RN - Fully Assessed Reason for Visit: ED Follow-up [821] Cmt: [place] [facility] 01/27/2025 Prescriptions as of 02/03/2025 - galcanezumab-gnlm (EMGALITY PEN) 120 mg/mL pen Inject 1 mL subcutaneously once every month. Do not shake. - ubrogepant (UBRELVY) 100 mg tablet Take 1 tablet by mouth as needed (take at onset of migraine, repeat in 2 hours). - galcanezumab-gnlm (EMGALITY PEN) 120 mg/mL pen Inject 2 pens (240 mg) under the skin 1 time only for initial loading dose. Refrigerate. Do not shake. - sertraline (ZOLOFT) 25 mg tablet Take 25 mg by mouth once daily. - hydrOXYzine pamoate (VISTARIL) 25 mg capsule Take 25 mg by mouth as needed for anxiety. - ARIPiprazole (ABILIFY) 2 mg tablet Take 1 tablet by mouth every afternoon. - traZODone (DESYREL) 50 mg tablet TAKE 1/2 (ONE-HALF) TABLET BY MOUTH ONCE DAILY AT BEDTIME NEEDED - albuterol HFA (PROVENTIL HFA, VENTOLIN HFA) 90 mcg/actuation inhaler Inhale 2 Puffs as instructed every 4 hours as needed for wheezing/shortness of breath. - medroxyPROGESTERone (DEPO-PROVERA) 150 mg/mL injection Inject 1 mL intramuscularly every 12 weeks. - mv-min/iron/folic/calcium/vitK (WOMEN'S MULTIVITAMIN ORAL) Take 2 tablets by mouth once daily. - Magnesium 250 mg tab Take 250 mg by mouth once daily. - Biotin 10,000 mcg cap Take 1 capsule by mouth once daily. - cholecalciferol (VITAMIN D-3) 50 mcg (2,000 unit) tablet Take 1,000 Units by mouth once daily. - calcium carbonate (CALCIUM 600 ORAL) Take 1 tablet by mouth three times a day. - thiamine (VITAMIN B-1) 50 mg tablet Take 50 mg by mouth once daily. - cyanocobalamin (VITAMIN B-12) 500 mcg tablet Take 1 tablet by mouth every other week. Facility-Administered Medications as of 02/03/2025 - medroxyPROGESTERone 150 mg injection (DEPO-PROVERA) Problem List As Of Date 01/28/2025 Noted Resolved Chiari malformation type I (HCC) [G93.5] 08/20/2017 Vision blurred [H53.8] 08/20/2017 Dizziness and giddiness [R42] 08/20/2017 Nonintractable headache [R51.9] 08/20/2017 Brain lesion [G93.9] 08/20/2017 Migraine with aura and without status migrainos*10/14/2017 Imbalance [R26.89] 01/29/2024 Posture abnormality [R29.3] 01/29/2024 Dizziness [R42] 01/29/2024 Mild intermittent asthma with acute exacerbatio*02/05/2024 Obesity, Class I, BMI 30-34.9 [E66.811] 02/19/2024 Anxiety and depression [F41.9, F32.A] 04/13/2024 Encounter Status:Closed by NORA JOLLY on 01/28/25 [facility] 01-27-2025 Discharge summary [facility] 01-27-2025 Discharge summary Note Date/Time January 27, 2025 9:17pm [facility] Medical Records Department [address] [place] [address] Emergency Department Summary 01/27/25 MR#: [id number] Acct: [id number] Name: JAYA HOPSON Rep #:[id number] : 1995 29 From: Avi Russo MD PCP: Dr. Cem Boggs DO Status:[facility] Location: ED HPI History of Present Illness Chief Complaint: Abd Pain Detail of Chief Complaint: Upper abdominal pain in the epigastric area that is crampy in nature with n Informant: patient Onset/Context/Timing Onset: Today and Days Context: Sudden Onset Timing: Continuous and Waxes and wanes Quality: Crampy Location: Epigastrium Current Severity: Mild Maximum Severity: Moderate Worsened by: Nothing Relieved by: Nothing Associated Symptoms Associated Symptoms: Nausea with minimal emesis Narrative Narrative: Patient is a 29-year-old female status post Tonio-en-Y. Bariatric surgery was performed at [facility]. She presents with crampy epigastric pain thatdoes not radiate. This started several hours prior to presentation. Patient states she had pizza for lunch at approximately noon. She reports some nausea. The pain does not radiate through to her back. She has no known history of biliary disease. She denies liver disease. She was on a PPI for reflux/gastritis. She is no longer on a PPI. She denies black or maroon-colored stool. She denies chest pain, shortness of breath, cough or difficulty breathing. She has no history of renal ureterolithiasis. She denies dysuria, frequency, urgency or hematuria. There are no alleviating, precipitating or exacerbating factors. Prior similar symptoms: No Recent Illness/Hospitalization: No PFSH PFSH Medical History Asthma BP (high blood pressure) Anxiety Migraines Home Medications ?Medication ?Instructions ?Recorded ?Last Taken ?Type multivitamin 1 tab PO DAILY 03/23/22 Unkn own History omeprazole 40 mg capsule,delayed 40 mg PO DAILY #30 ca ps 01/27/25 Unknown Rx release Allergy/AdvReac Type Severity Reaction Status Date / Time amoxicillin Allergy Hives Verified 01/27/25 18:21 Family History no significant family his Surgical History History of gastric bypass History of tonsillectomy and adenoidectomy Social History household members: family Smoking Status: Never smoker alcohol intake: never substance use type: does not use ROS ROS ED Constitutional Constitutional ED: Denies chills, fever(s), subjective or sweats Cardiovascular Cardiovascular: Denies chest pain or palpitations Respiratory/Chest Respiratory/Chest: Denies cough, dyspnea or dyspnea on exertion Gastrointestinal Gastrointestinal: Reports abdominal pain, nausea and vomiting; Denies constipation, diarrhea or melena Genitourinary Genitourinary ED: Denies dysuria, hematuria or urinary frequency Musculoskeletal Musculoskeletal: Denies arthralgias, back pain or myalgias Hematologic/Lymphatic Hematologic/Lymphatic: Reports systems reviewed and no addt'l complaints, exceptas documented EXAM Physical Exam Const Vital Signs: 01/27/25 18:21 01/27/25 20:20 Temperature 97 F L Temperature Source Temporal Pulse Rate 59 L 56 L Respiratory Rate 18 16 Blood Pressure 120/87 H 126/87 H Blood Pressure Mean 98 100 Pulse Ox 100 100 Oxygen Delivery Method Room Air Room Air Positive well nourished and well developed General Appearance ED: well developed and NAD; Negative for pallor HEENT Reports moist mucous membranes HEENT Narrative: Head is atraumatic and normocephalic. Ears normal. Nares patent. Posterior pharynx is normal. Eyes PERRL and EOMs intact bilaterally General Eye ED: Negative for pale conjunctiva or scleral icterus Neck no lymphadenopathy, supple and no JVD Resp normal respiratory effort and clear to auscultation bilaterally Cardio regular rate, regular rhythm, S1 normal heart sound, S2 normal heart sound and no murmurs GI normal to inspection, nondistended, normoactive bowel sounds, non-distended and no masses; Negative for non-tender or hepatosplenomegaly GI Narrative: She has negative clinical Urena sign. There is no guarding or peritoneal findings. Auscultation: normoactive bowel sounds Palpation: soft and tender epigastric Back/Spine no CVA tenderness Extremity normal to inspection Neuro oriented x3 and CN's II-XII intact bilaterally Sensorium / Orientation: alert Psych mental status grossly normal Skin no rashes or lesions noted, no wounds and skin turgor normal General Skin Exam: elasticity normal; Negative for jaundice or pallor MDM MDM MDM Narrative Medical decision making narrative: Differential diagnosis would include reflux, esophagitis/gastritis, peptic ulcerdisease, doubt perforation from her Tonio-en-Y. Nurse protocol orders were initiated. Patient was treated with GI cocktail and IV Pepcid. Last ER visit was March 2024 for COVID. She also was seen March 2022 for respiratory symptoms. And she was seen at another visit in March 2022 for upper respiratory infection. History & Record Review Additional record(s) reviewed:: Prior ED visit and Prior labs Lab Data Attestation: I reviewed the patient's lab results. Lab results narrative: Competence of metabolic panel is normal. Serum test is normal. Lipase is normal. CBC is normal. Labs: Laboratory Results - last 24 hr 01/27/25 18:29 WBC 5.1 RBC 4.46 Hgb 13.4 Hct 40.2 MCV 90.1 MCH 30.0 MCHC 33.3 RDW Std Deviation 42.8 RDW Coeff of Makayla 13.0 Plt Count Not Reportable MPV 14.0 H Immature Gran % (Auto) 0.400 Neut % (Auto) 40.2 L Lymph % (Auto) 48.2 H Tate % (Auto) 4.9 Eos % (Auto) 5.7 H Baso % (Auto) 0.6 Absolute Neuts (auto) 2.1 Absolute Lymphs (auto) 2.46 Nucleated RBC % 0 Sodium 140 Potassium 3.8 Chloride 105 Carbon Dioxide 24.0 Anion Gap 11 BUN 18 Creatinine 1.01 Estim Creat Clear Calc 90.04 Est GFR (MDRD) Non-Af 77 BUN/Creatinine Ratio 17.8 Glucose 89 Calcium 9.3 Total Bilirubin 0.27 AST 21 ALT 23 Alkaline Phosphatase 61 Total Protein 7.1 Albumin 4.3 Globulin 2.8 Albumin/Globulin Ratio 1.5 Lipase 73 Serum , Qual NEGATIVE Treatment and Re-Evaluation :: Patient was reassessed at 2022. Patient reports marked improvement. She has nodiscomfort in the epigastrium after GI cocktail and IV Pepcid. If CBC is normalplan is discharge to home with PPI. Discharge Plan Triage Chief Complaint: Abd Pain ED Provider: KaranAvi Dx/Rx/DC Orders Clinical Impression: Acute epigastric pain, History of Tonio-en-Y gastric bypass, Nausea & vomiting Instructions: ED Epigastric Pain Uncertain Cause Prescriptions: New omeprazole 40 mg capsule,delayed release(DR/EC) 40 mg PO DAILY Qty: 30 0RF No Action multivitamin Tablet 1 tab PO DAILY Primary Care Provider: Cem Boggs Referrals: Cem Boggs DO [Primary Care Provider] - 1-2 Weeks Activity Restrictions/Additional Instructions: 1. Return if you have black or maroon-colored stool or vomit what appears to becoffee-ground appearing liquid. Print Language: Marshallese Disposition Disposition: Home, Self Care What to do if you have Problems For any increased pain, shortness of breath, bleeding, nausea or vomiting, chestpain, or any unexpected problems, contact your Primary Care Provider. Call [facility] ([phone]) or report to the closest Emergency Room. Call 911 if necessary. 01/27/252116 <Electronically signed by Avi Russo MD> Cosigner Signature (if applicable): CC: Dr. Cem Boggs DO ~ Signed [facility] Work Phone: [phone] 204-571605-22-2025 NoteHNO ID: [id number] Author: KEYSHA ROUSE RN Service: ? Author Type: Registered Nurse Type: Progress Notes Filed: 01/21/2025 17:27 Note Text: Patient identified by name and date of . Jaya Hopson is here for a Depo Provera injection. Patient brought medication. Date last injected: 10/29/24 Depo-Provera, 150 mg, administered IM left deltoid, Lot # [id number], expiration date 06/01/2026. Depo-Provera was given without incident. Date of last menses: Patient's last menstrual period was 05/04/2024. Irregular bleeding - No Menses ceased - Yes Patient instructed to return to clinic in 12 weeks. [email or web address] Provider PRINCE was present in office at time of injection. [facility] History of Present illness Narrative* Luke Chiu, RT(R) - 12/21/2024 8:30 AM EDT Radiology Service Progress Note PATIENT NAME: Jaya Hopson DATE OF SERVICE: December 21, 2024 TIME: 8:26 AM PATIENT IDENTITY VERIFICATION COMPLETED USING TWO (2) IDENTIFIERS: Name and Date of confirmedby patient verbally. FALL SCREENING: Has the patient had 2 falls in the last year or 1 fall with injury or currently using an Ambulatory Assistive Device (Walker, Cane, Wheelchair, Crutches, etc.)? No PATIENT GENDER DATA: Assigned female at . status: : No status:NO. PATIENT RELEVANT IMPLANT DATA REVIEWED: Yes PATIENT PRESENTS WITH AN IMPLANTABLE OR ATTACHED RN OCCUPATIONAL: No RADIOLOGY DEPARTMENT: MR; Exam(s) Completed: Spine: Cervical spine and CINE PERIPHERAL IV DATA: Not applicable SIGNED BY: RT Yoel(R) December 21, 2024 8:26 AM documented in this encounterSelect [facility] [place]04-[facility]25 NoteHNO ID: [id number] Author: LUKE CHIU RT(R) Service: ? Author Type: Technologist Type: Progress Notes Filed: 12/21/2024 08:26 Note Text: Radiology Service Progress Note PATIENT NAME: Jaya Hopson DATE OF SERVICE: December 21, 2024 TIME: 8:26 AM PATIENT IDENTITY VERIFICATION COMPLETED USING TWO (2) IDENTIFIERS: Name and Date of confirmed by patient verbally. FALL SCREENING: Has the patient had 2 falls in the last year or 1 fall with injury or currently using an Ambulatory Assistive Device (Walker, Cane, Wheelchair, Crutches, etc.)? No PATIENT GENDER DATA: Assigned female at . status: : No status: NO. PATIENT RELEVANT IMPLANT DATA REVIEWED: Yes PATIENT PRESENTS WITH AN IMPLANTABLE OR ATTACHED RN OCCUPATIONAL: No RADIOLOGY DEPARTMENT: MR; Exam(s) Completed: Spine: Cervical spine and CINE PERIPHERAL IV DATA: Not applicable SIGNED BY: RT Yoel(R) December 21, 2024 8:26 [facility]04-18-2025 NoteSpoke with patient and I had advised patient that the insurance has denied for her surgery procedure. I asked moving forward if she would like a cosmetic quote patient denied at this time.[facility]04-18-2025 Telephone encounter Note* Telephone Encounter - Jennifer Wright - 12/18/2024 2:38 PM EDT Spoke with patient and I had advised patient that the insurance has denied for her surgery procedure. I asked moving forward if she would like a cosmetic quote patient denied at this time. [id number] Miscellaneous Notes* Telephone Encounter - Jennifer Wright - 12/18/2024 2:38 PM EDT Spoke with patient and I had advised patient that the insurance has denied for her surgery procedure. I asked moving forward if she would like a cosmetic quote patient denied at this time. * Telephone Encounter - Angelina Gao CMA - 12/18/2024 2:05 PM EDT Pt called back on my line and LVM please call her back * Telephone Encounter - Jennifer Wright - 12/18/2024 10:38 AM EDT Left message for patient to give me a call regarding surgery * Telephone Encounter - Jennifer Wright - 12/16/2024 3:14 PM EDT Left message for patient to give a call back regarding her auth that was denied. * Telephone Encounter - Jennifer Wright - 12/07/2024 1:28 PM EDT Spoke with Eron Cedeno regarding patient auth and her pre-determination regarding her outpatient surgery procedure. When speaking with Eron he stated if I included the codes in regarding the surgery. I advised him that the other Rep stated that all I needed to send was the clinic notes and the photo regarding pre-determination. I advise that I have been waiting on this information for over a month and that I have not received a single fax stating that they needed any new information regarding the surgery. I will be faxing over another clinic and photo and codes for surgery. * Telephone Encounter - Jennifer Kyle - 11/04/2024 11:20 AM EST Case# Procedure: BILATERAL BRACHIOPLASTY AND BILATERAL THIGHPLASTY Sx Date: Time: 4 HOURS Location: [facility] Anesthesia: GENERAL CPT: 14201-6, 36521-96, 73032-5 ICD-10: L98.7 , E88 , Z86.39 Special Equipment: PAT: AUTH: Spoke with Michael Lopez on 11/04/24 @ 10:47 am she stated that Auth is Required to send over clinic note and photo for prior determination for outpatient surgery. Fax info to [phone]. The date of service is for 11/04/24 to 05/07/2025. Auth will be sent back once auth is reviewed. * Telephone Encounter - Jennifer Kyle - 11/04/2024 11:19 AM EST ----- Message from Cassius Cox sent at 11/02/2024 10:19 AM EST ----- Please start chart, code, auth, and schedule. ----- Message ----- From: Edie Powers MD Sent: 09/30/2024 1:29 PM EST To: Cassius Hammonds, please submit this patient's paperwork to insurance for preauthorization. She needs a thighplasty and a brachioplasty. However, she elected to proceed with brachioplasty first This is an extended brachioplasty so the code for brachioplasty/arm plus the quote for excision of subcutaneous tissue of any area which is the trunk. Also bilateral thighplasty. Please submit both at the same time. If any is denied, please give her a quote. It was possible to do hold together however I would prefer to do 1 at a time. Thank you. Edie Powers MD documented in this encounterSGerman [id number] Telephone encounter Note* Telephone Encounter - Angelina Gao CMA - 12/18/2024 2:05 PM EDT Pt called back on my line and LVM please call her back [place] [id number] Telephone encounter Note* Telephone Encounter - Jennifer Wright - 12/18/2024 10:38 AM EDT Left message for patient to give me a call regarding surgery [place] [id number] Telephone encounter Note* Telephone Encounter - Jeninferjuan Wright - 12/16/2024 3:14 PM EDT Left message for patient to give a call back regarding her auth that was denied. [place] [id number] Miscellaneous Notes* Telephone Encounter - Jennifer Wright - 12/16/2024 3:14 PM EDT Left message for patient to give a call back regarding her auth that was denied. * Telephone Encounter - Jennifer Wright - 12/07/2024 1:28 PM EDT Spoke with Eron Cedeno regarding patient auth and her pre-determination regarding her outpatient surgery procedure. When speaking with Eron he stated if I included the codes in regarding the surgery. I advised him that the other Rep stated that all I needed to send was the clinic notes and the photo regarding pre-determination. I advise that I have been waiting on this information for over a month and that I have not received a single fax stating that they needed any new information regarding the surgery. I will be faxing over another clinic and photo and codes for surgery. * Telephone Encounter - Jennifer Kyle - 11/04/2024 11:20 AM EST Case# Procedure: BILATERAL BRACHIOPLASTY AND BILATERAL THIGHPLASTY Sx Date: Time: 4 HOURS Location: [facility] Anesthesia: GENERAL CPT: 50125-3, 35527-87, 75294-2 ICD-10: L98.7 , E88 , Z86.39 Special Equipment: PAT: AUTH: Spoke with Michael Lopez on 11/04/24 @ 10:47 am she stated that Auth is Required to send over clinic note and photo for prior determination for outpatient surgery. Fax info to [phone]. The date of service is for 11/04/24 to 05/07/2025. Auth will be sent back once auth is reviewed. * Telephone Encounter - Jennifer Kyle - 11/04/2024 11:19 AM EST ----- Message from Cassius Cox sent at 11/02/2024 10:19 AM EST ----- Please start chart, code, auth, and schedule. ----- Message ----- From: Edie Powers MD Sent: 09/30/2024 1:29 PM EST To: Cassius Hammonds, please submit this patient's paperwork to insurance for preauthorization. She needs a thighplasty and a brachioplasty. However, she elected to proceed with brachioplasty first This is an extended brachioplasty so the code for brachioplasty/arm plus the quote for excision of subcutaneous tissue of any area which is the trunk. Also bilateral thighplasty. Please submit both at the same time. If any is denied, please give her a quote. It was possible to do hold together however I would prefer to do 1 at a time. Thank you. Edie Powers MD documented in this [facility]04-08-2025 NoteHNO ID: [id number] Author: SHASTA YUEN PA-C Service: ? Author Type: Physician Learning Coach Type: Progress Notes Filed: 12/08/2024 07:42 Note Text: This note was created using FilmMeriter. Subjective Jaya Hopson is a 29 year old female seen today via zoom for evaluation of chiari malformation. She was referred by the headache neurology clinic. Past medical history of thrombocytopenia, chiari malformation, asthma, gastric bypass, and migraine w/wo aura. Pt has had her chiari malformation dx'd in 2017. She had migraines since she was a child. She was dx'd in the work up of migraines. Nothing new in the migraines since 2016. She does get some n/t in the hands at times. She does get some passing out at times as well. This has been going on since 2020. She has not passed out for a few weeks. She will get very dizzy, hot and pre-syncope. She passes out every 4-6 weeks. She gets the pre-syncope episodes several times a week. She has no weakness in the a week. + balance difficulties. While standing for some time, she will sway and have difficulty finding her center. She did have a tilt table test and get vestibular training. + brain fog mostly with migraines. She will start stuttering and not be able to get her thoughts out. She is getting migraines about 1x a week last ~72 hours or more. Migraines usually start in the neck and can migrate forward. Tender spot in the neck which seems always be there. Bright light, loud sounds make migraines worse. No issues with coughing laughing sneezing. She is on ubrelvy which helps stop the pain. She is also using emgality. Review of Systems Constitutional: Positive for fatigue. Negative for fever. HENT: Negative for tinnitus and trouble swallowing. Eyes: Positive for pain. Negative for visual disturbance. Respiratory: Negative for cough and wheezing. Cardiovascular: Positive for leg swelling. Negative for chest pain. Gastrointestinal: Positive for nausea. Negative for vomiting. Genitourinary: Negative for frequency and urgency. Musculoskeletal: Positive for neck pain and neck stiffness. Allergic/Immunologic: Positive for environmental allergies. Negative for food allergies. Neurological: Positive for dizziness and headaches. Psychiatric/Behavioral: Positive for confusion and decreased concentration. Objective LMP 05/04/2024 Physical Exam Assessment and Plan -Chiari malformation 7-8 mm descent first dx'd in 2017 Migraines worsening, more frequent N/t in hands dizziness Brain fog Pre-syncope and syncope Balance issues Neck pain Migraines aggravated by bright lights and loud noises On ubrelvy and emgality MRI brain completed Chiari malformation stable +pegging and crowding of the foramen magnum MRI lumbar in 2017 shows no tethered cord MRI thoracic in 2017 shows no syrinx Recommend MRI cervical with cineflow F/u with Dr. Sanchez for surgical opinion I spent a total of 35 minutes on the date of the service which included preparing to see the patient, ujpm-uy-aovi patient care, completing clinical documentation, obtaining and/or reviewing separately obtained history, counseling and educating the patient/family/caregiver, ordering medications, tests, or procedures, communicating with other HCPs (not separately reported), independently interpreting results (not separately reported), communicating results to the patient/family/caregiver, and care coordination (not separately reported). This virtual visit was conducted via Event[employer] which is a HIPAA compliant video platform. I received consent from the patient to perform the visit using this platform. The visit required patient-provider interaction for the medical decision making as documented herein. I have communicated my name and active licensure. The patient's identity and physical location were verified at the time of this visit. Either the patient or their legal outside energy sales representatives has been informed of the risks and benefits of -- and alternatives to -- treatment through a remote evaluation and consents to proceed with the evaluation remotely.[facility]04-08-2025 History of Present illness Narrative* Shasta Yuen PA-C - 12/08/2024 7:13 AM EDT This note was created using FilmMeriter. Subjective Jaya Hopson is a 29 year old female seen today via zoom for evaluation of chiari malformation. She was referred by the headache neurology clinic. Past medical history of thrombocytopenia, chiari malformation, asthma, gastric bypass, and migraine w/wo aura. Pt has had her chiari malformation dx'd in 2017. She had migraines since she was a child. She was dx'd in the work up of migraines. Nothing new in the migraines since 2017. She does get some n/t in the hands at times. She does get some passing out at times as well. This has been going on since 2020. She has not passed out for a few weeks. She will get very dizzy, hot and pre-syncope. She passes out every 4-6 weeks. She gets the pre-s yncope episodes several times a week. She has no weakness in the a week. + balance difficulties. While standing for some time, she will sway and have difficulty finding her center. She did have a tilt table test and get vestibular training. + brain fog mostly with migraines. She will start stuttering and not be able to get her thoughts out. She is getting migraines about 1x a week last ~72 hours or more. Migraines usually start in the neck and can migrate forward. Tender spot in the neck which seems always be there. Bright light, loud sounds make migraines worse. No issues with coughing laughing sneezing. She is on ubrelvy which helps stop the pain. She is also using emgality. Review of Systems Constitutional: Positive for fatigue. Negative for fever. HENT: Negative for tinnitus and trouble swallowing. Eyes: Positive for pain. Negative for visual disturbance. Respiratory: Negative for cough and wheezing. Cardiovascular: Positive for leg swelling. Negative for chest pain. Gastrointestinal: Positive for nausea. Negative for vomiting. Genitourinary: Negative for frequency and urgency. Musculoskeletal: Positive for neck pain and neck stiffness. Allergic/Immunologic: Positive for environmental allergies. Negative for food allergies. Neurological: Positive for dizziness and headaches. Psychiatric/Behavioral: Positive for confusion and decreased concentration. Objective LMP 05/04/2024 Physical Exam Assessment and Plan -Chiari malformation 7-8 mm descent first dx'd in 2017 Migraines worsening, more frequent N/t in hands dizziness Brain fog Pre-syncope and syncope Balance issues Neck pain Migraines aggravated by bright lights and loud noises On ubrelvy and emgality MRI brain completed Chiari malformation stable +pegging and crowding of the foramen magnum MRI lumbar in 2017 shows no tethered cord MRI thoracic in 2017 shows no syrinx Recommend MRI cervical with cineflow F/u with Dr. Sanchez for surgical opinion I spent a total of 35 minutes on the date of the service which included preparing to see the patient, posb-gk-qoki patient care, completing clinical documentation, obtaining and/or reviewing separately obtained history, counseling and educating the patient/family/caregiver, ordering medications, hal ts, or procedures, communicating with other HCPs (not separately reported), independently interpreting results (not separately reported), communicating results to the patient/family/caregiver, and care coordination (not separately reported). This virtual visit was conducted via [employer] which is a HIPAA compliant video platform. I received consent from the patient to perform the visit using this platform. The visit required patient-provider interaction for the medical decision making as documented herein. I have communicated my name and active licensure. The patient's identity and physical location wereverified at the time of this visit. Either the patient or their legal outside energy sales representatives has been informed of the risks and benefits of -- and alternatives to -- treatment through a remote evaluation andconsents to proceed with the evaluation remotely. documented in this encounterSelect Medical [facility] [place]04-[facility]-2025 NoteSpoke with Eron Cedeno regarding patient auth and her pre-determination regarding her outpatient surgery procedure. When speaking with Eron he stated if I included the codes in regarding the surgery. I advised him that the other Rep stated that all I needed to send was the clinic notes and the photo regarding pre-determination. I advise that I have been waiting on this information for over a month and that I have not received a single fax stating that they needed any new information regarding the surgery. I will be faxing over another clinic and photo and codes for surgery.[facility]04-07-2025 Telephone encounter Note* Telephone Encounter - Jennifer Wright - 12/07/2024 1:28 PM EDT Spoke with Eron Cedeno regarding patient auth and her pre-determination regarding her outpatient surgery procedure. When speaking with Eron he stated if I included the codes in regarding the surgery. I advised him that the other Rep stated that all I needed to send was the clinic notes and the photo regarding pre-determination. I advise that I have been waiting on this information for over a month and that I have not received a single fax stating that they needed any new information regarding the surgery. I will be faxing over another clinic and photo and codes for surgery. [facility][id number] Miscellaneous Notes* Telephone Encounter - Jennifer Wright - 12/07/2024 1:28 PM EDT Spoke with Eron Cedeno regarding patient auth and her pre-determination regarding her outpatient surgery procedure. When speaking with Eron he stated if I included the codes in regarding the surgery. I advised him that the other Rep stated that all I needed to send was the clinic notes and the photo regarding pre-determination. I advise that I have been waiting on this information for over a month and that I have not received a single fax stating that they needed any new information regarding the surgery. I will be faxing over another clinic and photo and codes for surgery. * Telephone Encounter - Jennifer Wright - 11/04/2024 11:20 AM EST Case# Procedure: BILATERAL BRACHIOPLASTY AND BILATERAL THIGHPLASTY Sx Date: Time: 4 HOURS Location: [facility] Anesthesia: GENERAL CPT: 03818-1, 13959-10, 54694-9 ICD-10: L98.7 , E88 , Z86.39 Special Equipment: PAT: AUTH: Spoke with Michael Lopez on 11/04/24 @ 10:47 am she stated that Auth is Required to send over clinic note and photo for prior determination for outpatient surgery. Fax info to [phone]. The date of service is for 11/04/24 to 05/07/2025. Auth will be sent back once auth is reviewed. * Telephone Encounter - Jennifer Wright - 11/04/2024 11:19 AM EST ----- Message from Cassius Cox sent at 11/02/2024 10:19 AM EST ----- Please start chart, code, auth, and schedule. ----- Message ----- From: Edie Powers MD Sent: 09/30/2024 1:29 PM EST To: Cassius Hammonds, please submit this patient's paperwork to insurance for preauthorization. She needs a thighplasty and a brachioplasty. However, she elected to proceed with brachioplasty first This is an extended brachioplasty so the code for brachioplasty/arm plus the quote for excision of subcutaneous tissue of any area which is the trunk. Also bilateral thighplasty. Please submit both at the same time. If any is denied, please give her a quote. It was possible to do hold together however I would prefer to do 1 at a time. Thank you. Edie Powers MD documented in this [facility]03-05-2025 NoteCase# Procedure: BILATERAL BRACHIOPLASTY AND BILATERAL THIGHPLASTY Sx Date: Time: 4 HOURS Location: [facility] Anesthesia: GENERAL CPT: 30490-4, 78958-42, 37948-1 ICD-10: L98.7 , E88 , Z86.39 Special Equipment: PAT: AUTH: Spoke with Michael Lopez on 11/04/24 @ 10:47 am she stated that Auth is Required to send over clinic note and photo for prior determination for outpatient surgery. Fax info to [phone]. The date of service is for 11/04/24 to 05/07/2025. Auth will be sent back once auth is reviewed.[facility]03-05-2025 Telephone encounter Note* Telephone Encounter - Jennifer Wright - 11/04/2024 11:20 AM EST Case# Procedure: BILATERAL BRACHIOPLASTY AND BILATERAL THIGHPLASTY Sx Date: Time: 4 HOURS Location: [facility] Anesthesia: GENERAL CPT: 33488-2, 18583-52, 64528-6 ICD-10: L98.7 , E88 , Z86.39 Special Equipment: PAT: AUTH: Spoke with Michael Lopez on 11/04/24 @ 10:47 am she stated that Auth is Required to send over clinic note and photo for prior determination for outpatient surgery. Fax info to [phone]. The date of service is for 11/04/24 to 05/07/2025. Auth will be sent back once auth is reviewed. [facility][id number] Miscellaneous Notes* Telephone Encounter - Jennifer Wright - 11/04/2024 11:20 AM EST Case# Procedure: BILATERAL BRACHIOPLASTY AND BILATERAL THIGHPLASTY Sx Date: Time: 4 HOURS Location: [facility] Anesthesia: GENERAL CPT: 95202-4, 90161-14, 13428-7 ICD-10: L98.7 , E88 , Z86.39 Special Equipment: PAT: AUTH: Spoke with Michael Lopez on 11/04/24 @ 10:47 am she stated that Auth is Required to send over clinic note and photo for prior determination for outpatient surgery. Fax info to [phone]. The date of service is for 11/04/24 to 05/07/2025. Auth will be sent back once auth is reviewed. * Telephone Encounter - Jennifer Wright - 11/04/2024 11:19 AM EST ----- Message from Cassius Cox sent at 11/02/2024 10:19 AM EST ----- Please start chart, code, auth, and schedule. ----- Message ----- From: Edie Powers MD Sent: 09/30/2024 1:29 PM EST To: Cassius Hammonds, please submit this patient's paperwork to insurance for preauthorization. She needs a thighplasty and a brachioplasty. However, she elected to proceed with brachioplasty first This is an extended brachioplasty so the code for brachioplasty/arm plus the quote for excision of subcutaneous tissue of any area which is the trunk. Also bilateral thighplasty. Please submit both at the same time. If any is denied, please give her a quote. It was possible to do hold together however I would prefer to do 1 at a time. Thank you. Edie Powers MD documented in this [facility]03-05-2025 Telephone encounter Note* Telephone Encounter - Jenniferjuan Wright - 11/04/2024 11:19 AM EST ----- Message from Cassius Cox sent at 11/02/2024 10:19 AM EST ----- Please start chart, code, auth, and schedule. ----- Message ----- From: Edie Powers MD Sent: 09/30/2024 1:29 PM EST To: Cassius Hammonds, please submit this patient's paperwork to insurance for preauthorization. She needs a thighplasty and a brachioplasty. However, she elected to proceed with brachioplasty first This is an extended brachioplasty so the code for brachioplasty/arm plus the quote for excision of subcutaneous tissue of any area which is the trunk. Also bilateral thighplasty. Please submit both at the same time. If any is denied, please give her a quote. It was possible to do hold together however I would prefer to do 1 at a time. Thank you. Edie Powers MD [facility]-[id number] NoteHNO ID: [id number] Author: KEYSHA ROUSE, GABE Service: ? Author Type: Registered Nurse Type: Progress Notes Filed: 10/29/2024 15:53 Note Text: Patient identified by name and date of . Jaya Chandra Mark Anthony is here for a Depo Provera injection. Patient brought medication. Date last injected: 08/06/2024. Depo-Provera, 150 mg, administered IM right deltoid, Lot # [id number], expiration date 01/30/2026. Depo-Provera was given without incident. Date of last menses: Patient's last menstrual period was 05/04/2024. Irregular bleeding - Yes Menses ceased - Yes Patient instructed to return to clinic in 12 weeks. [email or web address] Provider PRINCE was present in office at time of injection. [facility]ha Rouse [facility]02-27-2025 History of Present illness Narrative* Keysha Rouse RN - 10/29/2024 3:38 PM EST Patient identified by name and date of . Jaya Hopson is here for a Depo Provera injection. Patient brought medication. Date last injected: 08/06/2024. Depo-Provera, 150 mg, administered IM right deltoid, Lot # [id number], expiration date 01/30/2026. Depo-Provera was given without incident. Date of last menses: Patient's last menstrual period was 05/04/2024. Irregular bleeding - Yes Menses ceased - Yes Patient instructed to return to clinic in 12 weeks. [email or web address] Provider PRINCE was present in office at time of injection. Keysha Rouse RN [facility] [place]* Addendum Note - Cem Boggs DO - 10/08/2024 10:59 AM ESTAddended by: CEM BOGGS on: 10/08/2024 10:59 AM Modules accepted: Orders [facility] [place]02-06-2025 Telephone encounter Note* Telephone Encounter - Cem Boggs DO - 10/08/2024 10:59 AM EST Order attached Cem Boggs DO [facility] [place]02-06-2025 Miscellaneous Notes* Addendum Note - Cem Boggs DO - 10/08/2024 10:59 AM ESTAddended by: CEM BOGGS on: 10/08/2024 10:59 AM Modules accepted: Orders * Telephone Encounter - Cem Boggs DO - 10/08/2024 10:59 AM EST Order attached Cem Boggs DO * Telephone Encounter - Kristen Ireland MA - 10/08/2024 7:27 AM EST ----- Message from Oumou Mendenhall MA sent at 07/08/2024 7:18 AM EST ----- Patient due for 3 month recheck B12. Oumou Ramirez MA documented in this [facility] [place] Telephone encounter Note * Telephone Encounter - Kristen Ireland MA - 10/08/2024 7:27 AM EST ----- Message from Oumou Mendenhall MA sent at 07/08/2024 7:18 AM EST ----- Patient due for 3 month recheck B12. Oumou Ramirez MA [facility] [place]01-29-2025 History of Present illness Narrative* Ernestine Marquez RN - 09/30/2024 1:00 PM EST WLS October 2022- Highest weight: 303 lbs Lowest weight: 174 lbs C/o excess skin arms and thighs Pt c/o excess skin arms more problematic Pt reports cardiac issues of syncope, has worn a holter monitor, ? Dumping syndrome, yesterday lastepisoDr. socorroSaid requested patient go see about these concerns instead of PCP because itcould be something related to her bypass. Hx of asthma last asthma attack reported 5 years ago Pt can walk a mile with no SOB Pt endorses regular exercise but has been cautious lately due to her syncope episodes Pt c/o skin rashes in thighs Pt reports vitamin compliance Pt denies personal history of blood clots or blood thinners, but reports family history of blood clots in her father. Photos obtained. Plan: to submit to insurance for surgery, also provide patient with cosmetic quote. * Edie Powers MD - 09/30/2024 1:00 PM EST Department of Plastic Surgery - Adult Attending Consult Note Reason for Consult: Excessively redundant skin and subcutaneous tissue along the medial aspect of the arms and thighs bilaterally Requesting Physician: Dr. Salazar CHIEF COMPLAINT: Kindly see above History Obtained From: patient HISTORY OF PRESENT ILLNESS: The patient is a 29 y.o. female who presents with significant past medical history of morbid obesity. Status post Tonio-en-Y gastric bypass in October 2022. Patient's weight prior to her surgery was 303pounds. Her current weight today is 179. Patient is presenting today complaining of excessively redundant skin and subcutaneous tissue along the medial aspect of the arms and thighs bilaterally. Patient endorses rash along the medial aspect of the thigh which is currently present. She also endorsestrouble with clothing due to her excessively redundant skin and subcutaneous tissue along the medial aspect of the arm. 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 However, she also experiences similar attacks without eating. She did undergo evaluation by her primary care physician and had a Holter monitor at 1 point. Patient denies any cardiac or neurological source at this point of time. She reports that she is compliant with her multivitamin treatment after her weight loss surgery. She can walk a mile without shortness of breath or chest pain. Past Medical History: Past Medical History: Diagnosis Date Asthma Blurred vision COVID-19 vaccine series completed 08/28/2021 Dizziness Heartburn mild Intestinal malabsorption 12/21/2022 Joint pain, knee Past Surgical History: Past Surgical History: Procedure Laterality Date BARIATRIC SURGERY November 21, 2022 ESOPHAGOGASTRODUODENOSCOPY 04/06/2022 Dr. Salazar-[facility] FINGER SURGERY 2005 Repair broken thumb LAP GASTRIC BYPASS/TONIO-EN-Y (HISTORICAL) 11/21/2022 LRYGB - Dr Salazar TONSILLECTOMY (HISTORICAL) 1999 WISDOM TOOTH EXTRACTION 2011 Current Medications: Current Outpatient Medications Medication Instructions albuterol 108 (90 Base) MCG/ACT inhaler 2 puffs, Every 4 hours PRN ARIPiprazole (ABILIFY) 5 mg, Daily B-12 500 mcg, SubLINGual, Daily, Place 500 mcg under the tongue to dissolve once daily biotin 5,000 mcg, Daily CALCIUM CITRATE PO 500 mg, 3 times daily cholecalciferol (VITAMIN D-3) 100 mcg, Oral, Daily hydrOXYzine pamoate (VISTARIL) 25 mg, 2 times daily Magnesium 500 MG capsule Nightly medroxyPROGESTERone (DEPO-PROVERA) 150 mg Multiple Vitamins-Minerals (CENTRUM WOMEN PO) 2 tablets, Daily Semaglutide-Weight Management (WEGOVY) 0.25 mg, SubCUTAneous, Every 7 days sertraline (Zoloft) 25 MG tablet Daily thiamine (VITAMIN B-1) 50 mg, Oral, Daily traZODone (Desyrel) 50 MG tablet Nightly Ubrogepant (Ubrelvy) 100 MG tablet PRN Allergies: Fluocinolone and Amoxicillin Social History: Social History Socioeconomic History Marital status: Single Spouse name: Not on file Number of children: Not on file Years of education: Not on file Highest education level: Not on file Occupational History Not on file Tobacco Use Smoking status: Never Smokeless tobacco: Never Substance and Sexual Activity Alcohol use: Not Currently Alcohol/week: 1.0 standard drink of alcohol Comment: Only socially which is rare Drug use: Never Sexual activity: Never Other Topics Concern Not on file Social History Narrative Not on file Social Drivers of Health Financial Resource Strain: Low Risk (01/17/2023) Received from [facility] Overall Financial Resource Strain (CARDIA) Difficulty of Paying Living Expenses: Not hard at all Food Insecurity: No Food Insecurity (01/17/2023) Received from [facility] Hunger Vital Sign Worried About Running Out of Food in the Last Year: Never true Ran Out of Food in the Last Year: Never true Transportation Needs: No Transportation Needs (01/17/2023) [facility] - Transportation Lack of Transportation (Medical): No Lack of Transportation (Non-Medical): No Physical Activity: Not on file Stress: Not on file Social Connections: Not on file Intimate Partner Violence: Not At Risk (11/21/2022) Humiliation, Afraid, Rape, and Kick questionnaire Fear of Current or Ex-Partner: No Emotionally Abused: No Physically Abused: No Sexually Abused: No Housing Stability: Not on file Family History: Family History Problem Relation Name Age of Onset Other ([id number]) Mother Diana Hopson heart problems Hypertension Mother Diana Hopson Diabetes Mother Diana Hopson Stroke Father Diaz Hopson Cancer Father Diaz Hopson Obesity Father Diaz Hopson Diabetes Father Diaz Hopson Colon cancer Paternal Grandfather Cancer Paternal Grandfather Cancer Maternal Grandmother Cancer Other Demarcus Hopson, Sr. REVIEW OF SYSTEMS: CONSTITUTIONAL: negative for fevers, chills, sweats and fatigue EYES: negative for dipolpia or acute vision loss. RESPIRATORY: negative for dry cough, cough with sputum, dyspnea, wheezing and chest pain CARDIOVASCULAR: negative for chest pain, dyspnea, palpitations, syncope GASTROINTESTINAL: negative for nausea, vomiting, change in bowel habits, diarrhea, constipation andabdominal pain EXTREMITIES: negative for edema MUSCULOSKELETAL: negative for muscle weakness SKIN: negative for itching or rashes. BEHAVIOR/PSYCH: negative for poor appetite, increased appetite, decreased sleep and poor concentration PHYSICAL EXAM: VITALS: BP 121/79 (BP Location: Left arm, Patient Position: Sitting, BP Cuff Size: Adult) Pulse 79 Ht 5' 5 (1.651 m) Wt 174 lb (78.9 kg) BMI 28.96 kg/m CONSTITUTIONAL: awake, alert, cooperative, no apparent distress, and appears stated age EYES: PERRLA, EOMI, no signs of occular infection LUNGS: No increased work of breathing, good air exchange, clear to auscultation bilaterally, no crackles or wheezing CARDIOVASCULAR: Normal apical impulse, regular rate and rhythm, normal S1 and S2, no S3 or S4, and no murmur noted ABDOMEN: Soft, nontender nondistended. EXTREMITIES: no signs of clubbing or cyanosis. Examination of the arm bilaterally reveals excessively redundant skin and subcutaneous tissue in the form of hanging skin with a triceps full-thickness of 4 cm extending from just below the elbow to the axilla with excessive redundant skin that shows evidence of lipodystrophy along the medial aspect of the arm and the upper lateral chest wall. This is symmetrical bilaterally Examination of the thigh reveals also excessive redundant skin and subcutaneous tissue along the medial aspect of the thigh which are in contact with each other due to the skin redundancy and there is evidence of hyperpigmentation suggestive of recurrent chronic rash. MUSCULOSKELETAL: negative for flaccid muscle tone or spastic movements. SKIN: gross examination reveals no signs of rashes, or diaphoresis. NEURO: Cranial nerves II-XII grossly intact. No signs of agitated mood. CBC: Lab Results Component Value Date WBC 3.2 (L) 09/06/2023 RBC 4.19 09/06/2023 HGB 12.9 09/06/2023 HCT 38.4 09/06/2023 MCV 91.6 09/06/2023 MCH 30.8 09/06/2023 MCHC 33.6 09/06/2023 RDW 12.8 09/06/2023 PLT 111 (L) 09/06/2023 PLT 103 (L) 11/22/2022 MPV 14.5 (H) 09/06/2023 BMP: Lab Results Component Value Date NA 138 11/22/2022 K 4.2 11/22/2022 CL 108 (H) 11/22/2022 CO2 19 (L) 11/22/2022 BUN 9 11/22/2022 CREATININE 0.92 11/22/2022 CREATININE 0.97 04/10/2022 CALCIUM 9.0 11/22/2022 GLUCOSE 123 (H) 11/22/2022 Hepatic Function Panel: Lab Results Component Value Date ALKPHOS 61 04/10/2022 AST 26 04/10/2022 PROT 6.9 04/10/2022 BILITOT 0.3 04/10/2022 Data- Radiology Review: Not applicable IMPRESSION/RECOMMENDATIONS: Diagnosis: 1-excessive redundant skin and subcutaneous tissue involving bilateral arms and thighs 2-acquired severe generalized lipodystrophy The Patients EMR report has been reviewed Patient will benefit from 1-extended brachioplasty which will address the excessive redundant skin and subcutaneous tissue along the medial aspect of the arms bilaterally as well as the excessive redundant skin along the upper lateral chest wall 2-bilateral thighplasty which will reduce the excessive skin and subcutaneous tissue and decrease skin contact which reduces pain, irritation and rash Risks or complications including but not limited to infection, bleeding, seroma and hematoma formation as well as the notorious nature to develop hypertrophic scars that can be managed by excision pavithra later date. Photos were obtained. Will submit patient's paperwork to insurance for preauthorization based on patient's request This note may have been dictated using [employer] Medical Practice Edition 2.6 and/or [employer] Voice Recognition Feature. The document was proofread; however, unrecognized voice recognition hand ii cutter errors may be present. documented in this [facility]01-29-2025 History of Present illness Narrative* Ernestine Currie RN - 09/30/2024 1:00 PM EST WLS October 2022- Highest weight: 303 lbs Lowest weight: 174 lbs C/o excess skin arms and thighs Pt c/o excess skin arms more problematic Pt reports cardiac issues of syncope, has worn a holter monitor, ? Dumping syndrome, yesterday lastepisode, requested patient go see about these concerns instead of PCP because itcould be something related to her bypass. Hx of asthma last asthma attack reported 5 years ago Pt can walk a mile with no SOB Pt endorses regular exercise but has been cautious lately due to her syncope episodes Pt c/o skin rashes in thighs Pt reports vitamin compliance Pt denies personal history of blood clots or blood thinners, but reports family history of blood clots in her father. Photos obtained. Plan: to submit to insurance for surgery, also provide patient with cosmetic quote. * Edie Powers MD - 09/30/2024 1:00 PM EST Department of Plastic Surgery - Adult Attending Consult Note Reason for Consult: Excessively redundant skin and subcutaneous tissue along the medial aspect of the arms and thighs bilaterally Requesting Physician: Dr. Salazar CHIEF COMPLAINT: Kindly see above History Obtained From: patient HISTORY OF PRESENT ILLNESS: The patient is a 29 y.o. female who presents with significant past medical history of morbid obesity. Status post Tonio-en-Y gastric bypass in October 2022. Patient's weight prior to her surgery was 303pounds. Her current weight today is 179. Patient is presenting today complaining of excessively redundant skin and subcutaneous tissue along the medial aspect of the arms and thighs bilaterally. Patient endorses rash along the medial aspect of the thigh which is currently present. She also endorsestrouble with clothing due to her excessively redundant skin and subcutaneous tissue along the medial aspect of the arm. 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 However, she also experiences similar attacks without eating. She did undergo evaluation by her primary care physician and had a Holter monitor at 1 point. Patient denies any cardiac or neurological source at this point of time. She reports that she is compliant with her multivitamin treatment after her weight loss surgery. She can walk a mile without shortness of breath or chest pain. Past Medical History: Past Medical History: Diagnosis Date Asthma Blurred vision COVID-19 vaccine series completed 08/28/2021 Dizziness Heartburn mild Intestinal malabsorption 12/21/2022 Joint pain, knee Past Surgical History: Past Surgical History: Procedure Laterality Date BARIATRIC SURGERY November 21, 2022 ESOPHAGOGASTRODUODENOSCOPY 04/06/2022 Dr. Salazar-[facility]ER SURGERY 2004 Repair broken thumb LAP GASTRIC BYPASS/TONIO-EN-Y (HISTORICAL) 11/21/2022 LRYGB - Dr Salazar TONSILLECTOMY (HISTORICAL) 1999 WISDOM TOOTH EXTRACTION 2011 Current Medications: Current Outpatient Medications Medication Instructions albuterol 108 (90 Base) MCG/ACT inhaler 2 puffs, Every 4 hours PRN ARIPiprazole (ABILIFY) 5 mg, Daily B-12 500 mcg, SubLINGual, Daily, Place 500 mcg under the tongue to dissolve once daily biotin 5,000 mcg, Daily CALCIUM CITRATE PO 500 mg, 3 times daily cholecalciferol (VITAMIN D-3) 100 mcg, Oral, Daily hydrOXYzine pamoate (VISTARIL) 25 mg, 2 times daily Magnesium 500 MG capsule Nightly medroxyPROGESTERone (DEPO-PROVERA) 150 mg Multiple Vitamins-Minerals (CENTRUM WOMEN PO) 2 tablets, Daily Semaglutide-Weight Management (WEGOVY) 0.25 mg, SubCUTAneous, Every 7 days sertraline (Zoloft) 25 MG tablet Daily thiamine (VITAMIN B-1) 50 mg, Oral, Daily traZODone (Desyrel) 50 MG tablet Nightly Ubrogepant (Ubrelvy) 100 MG tablet PRN Allergies: Fluocinolone and Amoxicillin Social History: Social History Socioeconomic History Marital status: Single Spouse name: Not on file Number of children: Not on file Years of education: Not on file Highest education level: Not on file Occupational History Not on file Tobacco Use Smoking status: Never Smokeless tobacco: Never Substance and Sexual Activity Alcohol use: Not Currently Alcohol/week: 1.0 standard drink of alcohol Comment: Only socially which is rare Drug use: Never Sexual activity: Never Other Topics Concern Not on file Social History Narrative Not on file Social Drivers of Health Financial Resource Strain: Low Risk (01/17/2023) [facility] Financial Resource Strain (CARDIA) Difficulty of Paying Living Expenses: Not hard at all Food Insecurity: No Food Insecurity (01/17/2023) [facility] Hunger Vital Sign Worried About Running Out of Food in the Last Year: Never true Ran Out of Food in the Last Year: Never true Transportation Needs: No Transportation Needs (01/17/2023) Received from [facility] PRAPARE - Transportation Lack of Transportation (Medical): No Lack of Transportation (Non-Medical): No Physical Activity: Not on file Stress: Not on file Social Connections: Not on file Intimate Partner Violence: Not At Risk (11/21/2022) Humiliation, Afraid, Rape, and Kick questionnaire Fear of Current or Ex-Partner: No Emotionally Abused: No Physically Abused: No Sexually Abused: No Housing Stability: Not on file Family History: Family History Problem Relation Name Age of Onset Other (37580) Mother Diana Hopson heart problems Hypertension Mother Diana Hopson Diabetes Mother Diana Hopson Stroke Father Diaz [place] Cancer Father Diaz [place] Obesity Father Diaz [place] Diabetes Father Diaz [place] Colon cancer Paternal Grandfather Cancer Paternal Grandfather Cancer Maternal Grandmother Cancer Other Demarcus Hopson, Sr. REVIEW OF SYSTEMS: CONSTITUTIONAL: negative for fevers, chills, sweats and fatigue EYES: negative for dipolpia or acute vision loss. RESPIRATORY: negative for dry cough, cough with sputum, dyspnea, wheezing and chest pain CARDIOVASCULAR: negative for chest pain, dyspnea, palpitations, syncope GASTROINTESTINAL: negative for nausea, vomiting, change in bowel habits, diarrhea, constipation andabdominal pain EXTREMITIES: negative for edema MUSCULOSKELETAL: negative for muscle weakness SKIN: negative for itching or rashes. BEHAVIOR/PSYCH: negative for poor appetite, increased appetite, decreased sleep and poor concentration PHYSICAL EXAM: VITALS: BP 121/79 (BP Location: Left arm, Patient Position: Sitting, BP Cuff Size: Adult) Pulse 79 Ht 5' 5 (1.651 m) Wt 174 lb (78.9 kg) BMI 28.96 kg/m CONSTITUTIONAL: awake, alert, cooperative, no apparent distress, and appears stated age EYES: PERRLA, EOMI, no signs of occular infection LUNGS: No increased work of breathing, good air exchange, clear to auscultation bilaterally, no crackles or wheezing CARDIOVASCULAR: Normal apical impulse, regular rate and rhythm, normal S1 and S2, no S3 or S4, and no murmur noted ABDOMEN: Soft, nontender nondistended. EXTREMITIES: no signs of clubbing or cyanosis. Examination of the arm bilaterally reveals excessively redundant skin and subcutaneous tissue in the form of hanging skin with a triceps full-thickness of 4 cm extending from just below the elbow to the axilla with excessive redundant skin that shows evidence of lipodystrophy along the medial aspect of the arm and the upper lateral chest wall. This is symmetrical bilaterally Examination of the thigh reveals also excessive redundant skin and subcutaneous tissue along the medial aspect of the thigh which are in contact with each other due to the skin redundancy and there is evidence of hyperpigmentation suggestive of recurrent chronic rash. MUSCULOSKELETAL: negative for flaccid muscle tone or spastic movements. SKIN: gross examination reveals no signs of rashes, or diaphoresis. NEURO: Cranial nerves II-XII grossly intact. No signs of agitated mood. CBC: Lab Results Component Value Date WBC 3.2 (L) 09/06/2023 RBC 4.19 09/06/2023 HGB 12.9 09/06/2023 HCT 38.4 09/06/2023 MCV 91.6 09/06/2023 MCH 30.8 09/06/2023 MCHC 33.6 09/06/2023 RDW 12.8 09/06/2023 PLT 111 (L) 09/06/2023 PLT 103 (L) 11/22/2022 MPV 14.5 (H) 09/06/2023 BMP: Lab Results Component Value Date NA 138 11/22/2022 K 4.2 11/22/2022 CL 108 (H) 11/22/2022 CO2 19 (L) 11/22/2022 BUN 9 11/22/2022 CREATININE 0.92 11/22/2022 CREATININE 0.97 04/10/2022 CALCIUM 9.0 11/22/2022 GLUCOSE 123 (H) 11/22/2022 Hepatic Function Panel: Lab Results Component Value Date ALKPHOS 61 04/10/2022 AST 26 04/10/2022 PROT 6.9 04/10/2022 BILITOT 0.3 04/10/2022 Data- Radiology Review: Not applicable IMPRESSION/RECOMMENDATIONS: Diagnosis: 1-excessive redundant skin and subcutaneous tissue involving bilateral arms and thighs 2-acquired severe generalized lipodystrophy The Patients EMR report has been reviewed Patient will benefit from 1-extended brachioplasty which will address the excessive redundant skin and subcutaneous tissue along the medial aspect of the arms bilaterally as well as the excessive redundant skin along the upper lateral chest wall 2-bilateral thighplasty which will reduce the excessive skin and subcutaneous tissue and decrease skin contact which reduces pain, irritation and rash Risks or complications including but not limited to infection, bleeding, seroma and hematoma formation as well as the notorious nature to develop hypertrophic scars that can be managed by excision pavithra later date. Photos were obtained. Will submit patient's paperwork to insurance for preauthorization based on patient's request This note may have been dictated using [employer] Medical Practice Edition 2.6 and/or [employer] Voice Recognition Feature. The document was proofread; however, unrecognized voice recognition hand ii cutter errors may be present. * Nora Garcia - 09/30/2024 1:00 PM EST Case# Procedure: BILATERAL BRACHIOPLASTY AND BILATERAL THIGHPLASTY Sx Date: Time: 4 HOURS Location: [facility] Anesthesia: GENERAL CPT: 67265-61, 44412-84, 06915-6 ICD-10: L98.7, E88.1, Z86.39 Special Equipment: PAT: Submitted auth thru insurance portal, awaiting determination. *AUTH BOTH PROCEDURES BUT SCHEDULE SEPARATELY documented in this [facility]01-29-2025 NoteCase# Procedure: BILATERAL BRACHIOPLASTY AND BILATERAL THIGHPLASTY Sx Date: Time: 4 HOURS Location: [facility] Anesthesia: GENERAL CPT: 49966-91, 54714-09, 83383-1 ICD-10: L98.7, E88.1, Z86.39 Special Equipment: PAT: Submitted auth thru insurance portal, awaiting determination. *AUTH BOTH PROCEDURES BUT [facility]EDU[facility]PAR[facility]ELY[facility] Tele[facility] encounter Note* Telephone Encounter - Michelle Adams - 09/21/2024 7:55 AM EST Ambulatory Pharmacy Prior Authorization Note Provider Intervention Required?: No- Pharmacy completed on your behalf. Rx Plan: [facility] Drug: EMGAL[facility] Cover My Meds Stern: Done via Epic Determination: Approved Prior Authorization/Case #: [id number] Prior Authorization Expiration: 09/18/2025 Time to PA Submission in CMM: N/A Time to PA Determination in CMM: N/A Additional Information: PLEASE NOTE: Pt will need follow up office visit to review/document efficacy and tolerability of treatment before prior auth expiration. Please ensure a future follow up appt is scheduled with your patient. This will ensure no interruption in patient's ability to obtain medic ation refills. Prescriptions will now be processed through [facility] for determination of next steps. For questions relating to this submission, please contact [facility] at [phone] [facility] [place]01-20-2025 Miscellaneous Notes* Telephone Encounter - Michelle Adams - 09/21/2024 7:55 AM EST Ambulatory Pharmacy Prior Authorization Note Provider Intervention Required?: No- Pharmacy completed on your behalf. Rx Plan: [facility] Drug: EMGALITY Cover My Meds Stern: Done via Epic Determination: Approved Prior Authorization/Case #: [id number] Prior Authorization Expiration: 09/18/2025 Time to PA Submission in CMM: N/A Time to PA Determination in CMM: N/A Additional Information: PLEASE NOTE: Pt will need follow up office visit to review/document efficacy and tolerability of treatment before prior auth expiration. Please ensure a future follow up appt is scheduled with your patient. This will ensure no interruption in patient's ability to obtain medic ation refills. Prescriptions will now be processed through [facility] for determination of next steps. For questions relating to this submission, please contact [facility] at [phone] documented in this encounterSelect Medical [facility] [place]25 NoteHNO ID: [id number] Author: ASPEN MARTINEZ APRN.HIDE CURER Service: ? Author Type: Nurse Practitioner Type: Progress Notes Filed: 09/11/2024 15:09 Note Text: Outpatient Headache Clinic - Follow Up Visit Accompanied by: Self Primary Problem List: 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, Not Intractable Imbalance Posture Abnormality Dizziness Mild Intermittent Asthma With Acute Exacerbation Obesity, Class I, Bmi 30-34.9 Anxiety and Depression Chief Complaint: Follow up LV: 01/21/2024 w/ me Impression and Plan from last visit: MPRESSION: Migraine with aura and without status migrainosus, not intractable (primary encounter diagnosis) Imbalance Cervicalgia Jaya Hopson is a 28 year old year old female, with a history of thrombocytopenia, chiari malformation, asthma, gastric bypass, and migraine w/wo aura who presents for follow up. Her neurological examination is essentially normal at this visit. She did not tolerate Topamax, even at low doses. Ubrelvy is effective for rescue. Was on Emgality in the past and was virtually migraine free. Was stopped because menses stopped and unsure if it was related to Emgality use- reports hx of other health problems around that time including morbid obesity. She would like to retrial Emgality for prevention. C/o imbalance, swaying when standing still and neck tightness/pain. Vestibular PT helped with this in the past. PLAN: 1. Emgality for prevention- if menses stops again will d/c 2. Ubrelvy for rescue 3. Vestibular PT Future Considerations: Ajovy, Aimovig, Botox, Qulipta Interval Headache History: Since the last visit, the patient states that her headaches are slightly worse. Last had Emgality six months ago. She keeps forgetting to order it. Ubrelvy is effective for rescue. Feels migraines are more severe, rates 5-6/10 instead of 2-3/10. Occurring 15 days/month. Says her main reason for coming today is her fainting spells. She saw neurology for this and is supposed to complete a tilt table test. She is having more frequent near syncope and feels her heart is racing. Echo and holter monitor were unremarkable. Has another holter monitor on now. 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 Preventative: Emgality- has not taken since April Abortive: Ubrelvy Medications effective? yes # of doses of abortive medications per month: 10 Headache 1 This is the current headache. Location: occipital (can radiate forward to retro-orbital R > L -- assocaited with neck pain ) Quality/Description: throbbing, aching and sharp Other symptoms: photophobia, phonophobia, dizziness and neck pain (can have sensory overload all the time. denies autonomic symptoms with headaches ) Worse with activity: yes Number of migraine headache days/month: 15 Migraine Severity: mild Number of NON-migraine headache days/month: 0 Total Number of headache days/month: 15 Number of headache free days/month: 15 Duration of headaches with treatment: Duration of attacks with treatment: lasts minutes to 1 hour then will stop --> does not pay much attention to these headaches Triggers: none Most common time of day for headache to begin: anytime Aura: flashing lights Days missed from work or school in the last month: 3 days Prior Therapies Duration of Use Dose Reason for Discontinuation Anti-Depressant and Antipsychotic Aripiprazole (Abilify) Duloxetine (Cymbalta) Nortriptyline (Pamelor, Aventyl) Sertraline (Zoloft) Antiemetics Prochlorperazine Anti-Migraine Dihydroergotamine (DHE-45, Migranal) Sumatriptan (Imitrex, Sumavel) Blood Pressure Nadolol (Corgard) MABs Galcanezumab (Emgality) menses discontinued? she doesn't remember, was very effective for her GEPANTS Ubrogepant (Ubrelvy) Sleep Aids Trazodone (Desyrel) Over the Counter Medications Acetaminophen/Aspirin/Caffeine (Excedrin, Goody?s) Ibuprofen (Advil, Motrin) PAST MEDICAL HISTORY Diagnosis Date Asthma Brain lesion Chiari malformation type I (HCC) Migraines Thrombocytopenia (HCC) PAST SURGICAL HISTORY Procedure Laterality Date DENTAL SURGERY HX 2012 wisdom teeth removed GASTRIC BYPASS HX 11/21/2022 HAND SURGERY HX Left 2004 broken thumb repair TONSILLECTOMY AND ADENOIDECTOMY HX age 5 ALLERGIES Allergen Reactions Fluocinolone Anaphylaxis Amoxicillin Hives Current Medications: sertraline (ZOLOFT) 25 mg tabletTake 25 mg by mouth once daily.Disp: Rfl: hydrOXYzine pamoate (VISTARIL) 25 mg capsuleTake 25 mg by mouth as needed for anxiety.Disp: Rfl: ARIPiprazole (ABILIFY) 2 mg tabletTake 1 tablet by mouth every afternoon.Disp: Rfl: traZODone (DESYREL) 50 mg tabletTAKE 1/2 (ONE-HALF) TABLET BY MOUTH ONCE DAILY AT BEDTIME NEEDEDDisp: Rfl: albuterol HFA (PROVENTIL HFA, VE (more content not included)...[facility]01-10-2025 History of Present illness Narrative* Aspen Martinez, DEE.HIDE CURER - 09/11/2024 1:31 PM EST Images from the original note were not included. Outpatient Headache Clinic - Follow Up Visit Accompanied by: Self Primary Problem List: 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, Not Intractable Imbalance Posture Abnormality Dizziness Mild Intermittent Asthma With Acute Exacerbation Obesity, Class I, Bmi 30-34.9 Anxiety and Depression Chief Complaint: Follow up LV: 01/21/2024 w/ me Impression and Plan from last visit: MPRESSION: Migraine with aura and without status migrainosus, not intractable (primary encounter diagnosis) Imbalance Cervicalgia Jaya Hopson is a 28 year old year old female, with a history of thrombocytopenia, chiari malformation, asthma, gastric bypass, and migraine w/wo aura who presents for follow up. Her neurological examination is essentially normal at this visit. She did not tolerate Topamax, even at low doses. Ubrelvy is effective for rescue. Was on Emgality in the past and was virtually migraine free. Was stopped because menses stopped andunsure if it was related to Emgality use- reports hx of other health problems around that time including morbid obesity. She would like to retrial Emgality for prevention. C/o imbalance, swaying when standing still and neck tightness/pain. Vestibular PT helped with this in the past. PLAN: 1. Emgality for prevention- if menses stops again will d/c 2. Ubrelvy for rescue 3. Vestibular PT Future Considerations: Ajovy, Aimovig, Botox, Qulipta Interval Headache History: Since the last visit, the patient states that her headaches are slightly worse. Last had Emgality six months ago. She keeps forgetting to order it. Ubrelvy is effective for rescue. Feels migraines are more severe, rates 5-6/10 instead of 2-3/10. Occurring 15 days/month. Says her main reason for coming today is her fainting spells. She saw neurology for this and is supposed to complete a tilt table test. She is having more frequent near syncope and feels her heart is racing. Echo and holter monitor were unremarkable. Has another holter monitor on now. 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 Preventative: Emgality- has not taken since April Abortive: Ubrelvy Medications effective? yes # of doses of abortive medications per month: 10 Headache 1 This is the current headache. Location: occipital (can radiate forward to retro-orbital R > L -- assocaited with neck pain ) Quality/Description: throbbing, aching and sharp Other symptoms: photophobia, phonophobia, dizziness and neck pain (can have sensory overload all the time. denies autonomic symptoms with headaches ) Worse with activity: yes Number of migraine headache days/month: 15 Migraine Severity: mild Number of NON-migraine headache days/month: 0 Total Number of headache days/month: 15 Number of headache free days/month: 15 Duration of headaches with treatment: Duration of attacks with treatment: lasts minutes to 1 hour then will stop --> does not pay much attention to these headaches Triggers: none Most common time of day for headache to begin: anytime Aura: flashing lights Days missed from work or school in the last month: 3 days Prior Therapies Duration of Use Dose Reason for Discontinuation Anti-Depressant and Antipsychotic Aripiprazole (Abilify) Duloxetine (Cymbalta) Nortriptyline (Pamelor, Aventyl) Sertraline (Zoloft) Antiemetics Prochlorperazine Anti-Migraine Dihydroergotamine (DHE-45, Migranal) Sumatriptan (Imitrex, Sumavel) Blood Pressure Nadolol (Corgard) MABs Galcanezumab (Emgality) menses discontinued? she doesn't remember, was very effective for her GEPANTS Ubrogepant (Ubrelvy) Sleep Aids Trazodone (Desyrel) Over the Counter Medications Acetaminophen/Aspirin/Caffeine (Excedrin, Goody s) Ibuprofen (Advil, Motrin) PAST MEDICAL HISTORY Diagnosis Date Asthma Brain lesion Chiari malformation type I (HCC) Migraines Thrombocytopenia (HCC) PAST SURGICAL HISTORY Procedure Laterality Date DENTAL SURGERY HX 2012 wisdom teeth removed GASTRIC BYPASS HX 11/21/2022 HAND SURGERY HX Left 2004 broken thumb repair TONSILLECTOMY AND ADENOIDECTOMY HX age 5 ALLERGIES Allergen Reactions Fluocinolone Anaphylaxis Amoxicillin Hives Current Medications: sertraline (ZOLOFT) 25 mg tablet^Take 25 mg by mouth once daily.^Disp: ^Rfl: hydrOXYzine pamoate (VISTARIL) 25 mg capsule^Take 25 mg by mouth as needed for anxiety.^Disp: ^Rfl: ARIPiprazole (ABILIFY) 2 mg tablet^Take 1 tablet by mouth every afternoon.^Disp: ^Rfl: traZODone (DESYREL) 50 mg tablet^TAKE 1/2 (ONE-HALF) TABLET BY MOUTH ONCE DAILY AT BEDTIME NEEDED^Disp: ^Rfl: albuterol HFA (PROVENTIL HFA, VENTOLIN HFA) 90 mcg/actuation inhaler^Inhale 2 Puffs as instructed every 4 hours as needed for wheezing/shortness of breath.^Disp: 1 Each^Rfl: 2 medroxyPROGESTERone (DEPO-PROVERA) 150 mg/mL injection^Inject 1 mL intramuscularly every 12 weeks.^Disp: 1 mL^Rfl: 4 mv-min/iron/folic/calcium/vitK (WOMEN'S MULTIVITAMIN ORAL)^Take 2 tablets by mouth once daily.^Disp: ^Rfl: Magnesium 250 mg tab^Take 250 mg by mouth once daily.^Disp: ^Rfl: Biotin 10,000 mcg cap^Take 1 capsule by mouth once daily.^Disp: ^Rfl: cholecalciferol (VITAMIN D-3) 50 mcg (2,000 unit) tablet^Take 1,000 Units by mouth once daily.^Disp: ^Rfl: calcium carbonate (CALCIUM 600 ORAL)^Take 1 tablet by mouth three times a day.^Disp: ^Rfl: thiamine (VITAMIN B-1) 50 mg tablet^Take 50 mg by mouth once daily.^Disp: ^Rfl: cyanocobalamin (VITAMIN B-12) 500 mcg tablet^Take 1 tablet by mouth every other week.^Disp: ^Rfl: galcanezumab-gnlm (EMGALITY PEN) 120 mg/mL pen^Inject 1 mL subcutaneously once every month. Do not shake.^Disp: 1 Each^Rfl: 11 ubrogepant (UBRELVY) 100 mg tablet^Take 1 tablet by mouth as needed (take at onset of migraine, repeat in 2 hours).^Disp: 16 tablet^Rfl: 11 galcanezumab-gnlm (EMGALITY PEN) 120 mg/mL pen^Inject 2 pens (240 mg) under the skin 1 time only for initial loading dose. Refrigerate. Do not shake.^Disp: 2 Each^Rfl: 0 I have reviewed the Ed Status Assessment responses and discussed these with the patient: yes Aspen Martinez APRN.HIDE CURER HEADACHE SCORES: 04/24/2024 09/06/2024 09/10/2024 Headache Questions Initial improvement of headache after botox injection at last visit: Not applicable, I did not havea botox injection at my last visit Not applicable, I did not have a botox injection at my last visit Not applicable, I did not have a botox injection at my last visit Patient impression of improvement since last visit: No change No change Minimally worse 01/14/2024 04/24/2024 09/06/2024 HIT-6 HIT-6 76 (Severe impact) 73 (Severe impact) 67 (Severe impact) 04/20/2024 04/24/2024 09/06/2024 MAYCOL - 2/7 SCORES MAYCOL-2 Score 5 5 0 MAYCOL-7 Score 12 12 01/14/2024 04/24/2024 09/06/2024 Migraine Specific QOL - Higher scores indicate better HRQL Role Function-Restrictive Transformed Score (range: 0-100) 22.86 22.86 22.86 Role Function-Preventive Transformed Score (range: 0-100) 35 65 50 Emotional Function Transformed Score (range: 0-100) 0 0 0 04/20/2024 04/24/2024 09/06/2024 PHQ-9 Score 15 15 4 MRI Head/Brain - Last 2 Impressions MRI BRAIN WO/W IVCON Exam End: 12/11/2023 8:58 AM (Final result) Impression: IMPRESSION: Stable examination. Chiari I malformation.... MRI BRAIN WO/W IVCON Exam End: 12/26/2020 9:49 AM (Final result) Impression: IMPRESSION: Stable findings of Chiari I malformation with similar degree of crowding at the foramen magnum. ... Labs to Review No New Health Issues: No New Family History: No Review of Systems: Review of system : unchanged from the previous visit (sleep patterns, mood, energy, appetite, stress, exercising). Physical Examination: BP 121/77 Pulse 67 Wt 80.9 kg (178 lb 5.6 oz) LMP 05/04/2024 SpO2 100% BMI 29.91 kg/m General: well appearing, in no acute distress, alert HEENT: Normocephalic/atraumatic. Skin: Color, texture, turgor normal. No rashes or lesions Musculoskeletal: No gross joint deformities. , Suboccipital tenderness: No. , Cervical ROM: Normal. Neurological: Pain Behaviors: no pain behaviors observed Mental Status: Alert and oriented to person, place and time. Affect is normal and appropriate. Speech is spontaneous and fluent without dysarthria, normal in rate, volume and articulation, and clear,coherent, and relevant. Short and terminal operations manager memory, cognition and general fund of knowledge are good. Attention span and concentration are excellent. Cranial Nerves: II-Visual yee are full. III, IV, - extraocular muscles intact bilaterally, PERRL, nystagmus absent, V-normal facial sensation to light touch. VII-face is symmetric without evidence of weakness. VIII-hearing intact. IX, X-palate elevates symmetrically. XI-SCM 5/5 with shoulder shrug. XII-tongue protrudes midline with normal movements. No atrophy or fasciculations of the tongue. Motor: Normal muscle tone and bulk. No evidence of atrophy or fasciculations. Strength is normal, 5/5. Sensation: normal light touch in the upper and lower extremities. Cerebellar: No ataxia. Tremor: absent. Normal finger to nose. Gait examination is normal. IMPRESSION: Migraine with aura and without status migrainosus, not intractable (primary encounter diagnosis) Chiari malformation type i (hcc) Jaya Hopson is a 29 year old year old female, with a history of thrombocytopenia, chiari malformation, asthma, gastric bypass, and migraine w/wo aura who presents for follow up. Her neurological examination is essentially normal at this visit. She is concerned her chiari malformation has worsened because she has been experiencing more frequent migraines and near syncope spells w/ tachycardia. Reassured patient MRI in December of 2023 was stable and that migraines are likely more frequent sinceshe has been off of Emgality x 6 months. She also denies headaches with valsalva maneuver so I believe it is less likely her chiari malformation is contributing to her current migraines. Ubrelvy is effective for rescue. Encouraged her to schedule tilt table test ordered by Neurology for near syncope spells. She is following with cardiology, last ECHO and holter monitor were unremarkable. Will refer to NSGY for monitoring/management of chiari malformation. PLAN: Restart Emgality. Will need loading dose again. Continue Ubrelvy for rescue Referral to NSGY Prior Authorizations: Jaya Hopson has been previously approved for Calcitonin Gene Related Peptide Monoclonal Antibody (CGRP MAB) (Galcanezumab). The patient has demonstrated the following: Patient reduction in overall migraine days: Yes Patient reduction in moderate-severe migraine days: Yes Individual has obtained clinical benefit deemed significant by individual or prescriber: Yes Patient's quality of life and ability to perform ADLs has improved: Yes We suggest the patient continue treatment with CGRP MAB Galcanezumab. The following preventative medications have been tried for three or more months without benefit: Anti-Depressant and Antipsychotic Aripiprazole (Abilify) Duloxetine (Cymbalta) Nortriptyline (Pamelor, Aventyl) Sertraline (Zoloft) Blood Pressure Nadolol (Corgard) MABs Galcanezumab (Emgality) menses discontinued? she doesn't remember, was very effective for her The following abortive medications have been tried but require high frequency use which can lead toMedication Overuse Headache: Anti-Migraine Dihydroergotamine (DHE-45, Migranal) Sumatriptan (Imitrex, Sumavel) GEPANTS Ubrogepant (Ubrelvy) Over the Counter Medications Acetaminophen/Aspirin/Caffeine (Excedrin, Goody s) Ibuprofen (Advil, Motrin) Jaya Hopson has been previously approved for an Oral Calcitonin Gene- Related Peptide ReceptorAntagonist (GEPANT) Ubrogepant for the treatment of abortive use. The patient has demonstrated the following: Provider attests patient has had a positive clinical response: Yes Patient will not use with another Oral Calcitonin Gene-Related Peptide Receptor Antagonist (GEPANT): Yes Patient's quality of life and ability to perform ADLs has improved: Yes The patient has tried and failed the following : We suggest the patient continue treatment with GEPANT Ubrogepant. The following preventative medications have been tried for three or more months without benefit: Anti-Depressant and Antipsychotic Aripiprazole (Abilify) Duloxetine (Cymbalta) Nortriptyline (Pamelor, Aventyl) Sertraline (Zoloft) Blood Pressure Nadolol (Corgard) MABs Galcanezumab (Emgality) menses discontinued? she doesn't remember, was very effective for her The following abortive medications have been tried but require high frequency use which can lead toMedication Overuse Headache: Anti-Migraine Dihydroergotamine (DHE-45, Migranal) Sumatriptan (Imitrex, Sumavel) GEPANTS Ubrogepant (Ubrelvy) Over the Counter Medications Acetaminophen/Aspirin/Caffeine (Excedrin, Goody s) Ibuprofen (Advil, Motrin) HEADACHE MANAGEMENT: (You are the primary guardian of your health and headache. Keep track of all medications: This includes the reason for use, side effects and benefits.) MEDICATION TREATMENT: Medications to Start Taking galcanezumab-gnlm (EMGALITY PEN) 120 mg/mL pen Inject 1 mL subcutaneously once every month. Do not shake. ubrogepant (UBRELVY) 100 mg tablet Take 1 tablet by mouth as needed (take at onset of migraine, repeat in 2 hours). galcanezumab-gnlm (EMGALITY PEN) 120 mg/mL pen Inject 2 pens (240 mg) under the skin 1 time only for initial loading dose. Refrigerate. Do not shake. Headache education was done. Discussed lifestyle modification including increased oral hydration, decreased caffeine, exercise and stress management. Discussed treatment options including preventive and acute medications, natural supplements, and infusion therapy. Discussed medication overuse headache and to limit use of acute treatments to no more than 2 days/week or 10 days/month. Discussed medication side effects, adverse reactions and drug interactions. RESEARCH: None at this time Follow-up: 3 months Level of service: Est level 4 (30-39 min). Time spent 30 min on the day of service, which included preparing to see the patient, [id number] patient care, completing clinical documentation, obtaining and/or reviewing separately obtained history, performing a medically appropriate examination, counseling and educating the patient/family/caregiver, ordering medications, tests, or procedures, communicating with other HCPs (not separately reported), and care coordination (not separately reported). Aspen Martinez APRN.HIDE CURER Headache Section [facility] September 11, 2024 documented in this encounterSelect [facility] [place] Evaluation + Plan note* Assessment & Plan Note - See Velasquez MD - 08/31/2024 11:10 AM EST Associated Problem(s): Syncope and collapse See above. This is likely due to orthostatic hypotension. There may be one or two of these episodesassociated with vagal reflex - she did have an episode while having a bowel movement sitting on commode. -As above supportive care and conservative measures first -1 week extended holter as above -If has recurrent episodes of syncope without a clear understanding of situation or trigger, and these are infrequent, she could be referred to EP for an ILR. There is no indication for this right now. [id number] Miscellaneous Notes* Assessment & Plan Note - See Velasquez MD - 08/31/2024 11:10 AM ESTAssociated Problem(s): Syncope and collapse See above. This is likely due to orthostatic hypotension. There may be one or two of these episodesassociated with vagal reflex - she did have an episode while having a bowel movement sitting on commode. -As above supportive care and conservative measures first -1 week extended holter as above -If has recurrent episodes of syncope without a clear understanding of situation or trigger, and these are infrequent, she could be referred to EP for an ILR. There is no indication for this right now. * Assessment & Plan Note - eSe Velasquez MD - 08/31/2024 11:04 AM EST Associated Problem(s): Orthostatic hypotension Clearly describes episodes where changes in position cause dizziness and she knows to sit or get onthe ground. One of these episodes, she was found to have SBP 90's. Discussed how to address with lifestyle interventions. Orthostatic in office negative, though notable that resting SBP 110's, dropped to 108 mmHg. Low normal values predispose patients to be more sensitive to orthostatic situations. -Lifestyle management; push fluids, consider compression hose, consider add salt to diet. Lifestyleawareness -If does not respond to lifestyle management and is worse with frequent episodes of syncope that cannot be aborted then would consider pharmacologic Rx (e.g Florinef and/or Midodrine). * Assessment & Plan Note - See Velasquez MD - 08/31/2024 11:02 AM EST Associated Problem(s): Tachycardia Notes palpitations/tachycardia at times with changes in position. Sometimes notes this prior syncopal episodes. Prior teletypesetter monitor 10/2023 was normal but did not occur with syncope or palpitations she is now experiencing. -1 week extended holter ordered; if benign, no further w/u, if shows arrhythmia then she will need f/u to discuss * Assessment & Plan Note - See Velasquez MD - 08/31/2024 10:57 AM EST Associated Problem(s): History of Tonio-en-Y gastric bypass Very successful weight loss. Patient happy with outcome. She is continuign with lifestyle changes, joined [employer] 07/2023, started [employer] as well. BMI now <30. No exertional syncopal episodes. Gastric bypass is known to be associated with changes in the autonomic nervous system. In one study8.4% of patients had abnormalities of autonomic dysfunction, orthostatic intolerance and POTS. Supportive care is recommended. While data is not yet available, expect that once patient's body reachesnew steady state with all her changes, the autonomic nervous system will compensate appropriately. For any residual concerning findings and symptoms, those can be addressed. -Continue with lifestyle changes -Ok for continued Wegovy -F/u bariatric team documented in this encounterSGerman [id number] Evaluation + Plan note* Assessment & Plan Note - See Velasquez MD - 08/31/2024 11:04 AM EST Associated Problem(s): Orthostatic hypotension Clearly describes episodes where changes in position cause dizziness and she knows to sit or get onthe ground. One of these episodes, she was found to have SBP 90's. Discussed how to address with lifestyle interventions. Orthostatic in office negative, though notable that resting SBP 110's, dropped to 108 mmHg. Low normal values predispose patients to be more sensitive to orthostatic situations. -Lifestyle management; push fluids, consider compression hose, consider add salt to diet. Lifestyleawareness -If does not respond to lifestyle management and is worse with frequent episodes of syncope that cannot be aborted then would consider pharmacologic Rx (e.g Florinef and/or Midodrine). [id number] Evaluation + Plan note* Assessment & Plan Note - See Velasquez MD - 08/31/2024 11:02 AM ESTAssociated Problem(s): Tachycardia Notes palpitations/tachycardia at times with changes in position. Sometimes notes this prior syncopal episodes. Prior teletypesetter monitor 10/2023 was normal but did not occur with syncope or palpitations she is now experiencing. -1 week extended holter ordered; if benign, no further w/u, if shows arrhythmia then she will need f/u to discuss [place] [id number] Evaluation + Plan note* Assessment & Plan Note - See Velasquez MD - 08/31/2024 10:57 AM ESTAssociated Problem(s): History of Tonio-en-Y gastric bypass Very successful weight loss. Patient happy with outcome. She is continuign with lifestyle changes, joined [employer] 07/2023, started [employer] as well. BMI now <30. No exertional syncopal episodes. Gastric bypass is known to be associated with changes in the autonomic nervous system. In one study8.4% of patients had abnormalities of autonomic dysfunction, orthostatic intolerance and POTS. Supportive care is recommended. While data is not yet available, expect that once patient's body reachesnew steady state with all her changes, the autonomic nervous system will compensate appropriately. For any residual concerning findings and symptoms, those can be addressed. -Continue with lifestyle changes -Ok for continued Wegovy -F/u bariatric team [facility] [id number] History of Present illness Narrative* See Velasquez MD - 08/31/2024 9:30 AM EST Images from the original note were not included. [facility] - [address] [facility] [address] Dept: [phone] Dept Visit type: New : 1995 Reason for Visit: New Patient Assessment and Plan 1. Tachycardia Assessment & Plan: Notes palpitations/tachycardia at times with changes in position. Sometimes notes this prior syncopal episodes. Prior teletypesetter monitor 10/2023 was normal but did not occur with syncope or palpitations she is now experiencing. -1 week extended holter ordered; if benign, no further w/u, if shows arrhythmia then she will need f/u to discuss Orders: - ECG 12 lead - Cardiac holter monitor (3-7 days) 2. Orthostatic hypotension Assessment & Plan: Clearly describes episodes where changes in position cause dizziness and she knows to sit or get onthe ground. One of these episodes, she was found to have SBP 90's. Discussed how to address with lifestyle interventions. Orthostatic in office negative, though notable that resting SBP 110's, dropped to 108 mmHg. Low normal values predispose patients to be more sensitive to orthostatic situations. -Lifestyle management -If does not respond to lifestyle management and is worse with frequent episodes of syncope that cannot be aborted then would consider pharmacologic Rx (e.g Florinef and/or Midodrine). 3. History of Tonio-en-Y gastric bypass Assessment & Plan: Very successful weight loss. Patient happy with outcome. She is continuign with lifestyle changes, joined [employer] 07/2023, started [employer] as well. BMI now <30. No exertional syncopal episodes. Gastric bypass is known to be associated with changes in the autonomic nervous system. In one study8% of patients had such changes with BP and/or HR changes. Supportive care is recommended. While data is not yet available, expect that once patient's body reaches new steady state with all her changes, the autonomic nervous system will compensate appropriately. -Continue with lifestyle changes -Ok for continued Wegovy -F/u bariatric team 4. Syncope and collapse Assessment & Plan: See above. This is likely due to orthostatic hypotension. There may be one or two of these episodesassociated with vagal reflex - she did have an episode while having a bowel movement sitting on commode. -As above supportive care and conservative measures first -1 week extended holter as above -If has recurrent episodes of syncope without a clear understanding of situation or trigger, and these are infrequent, she could be referred to EP for an ILR. There is no indication for this right now. Follow up if symptoms worsen or fail to improve. Subjective Referred by PCP for tachycardia. For the past few years has been passing out. Now notes that she has been getting tachycardia. Started 2020 or 2021 (prior to metabolic surgery) In [facility]. Went in for back pain. Only got oral NSAID. Was sitting on hospital bed, then getting up noted a staticey vision ringing in the ears sweaty tunnel vision. Then woke upon the floor. Seen by her mother, nurses came in got her up and then she went home. No interventiondone at that time. Clear tired for next few days. Also for next a few days, had similar episodes where she would nearlylose or lose consciousness, make it to bathroom, when having a bowel movement would pass out. That pattern went away for a year. Then came back after 1 mos of gastric bypass 10/2022. Most recent episode she was at work a few mos ago. 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 This episode and others, she is only out for a short period of time, wakes up and is aware of her surroundings. Usually does not seek medical attention. For the work episode, nurse on site ck'd BP at 98/60 mmHg. Usually SBP 110's, before surgery it wasaround 120 mmHg. The episode before the lab event at work was March. So her episodes of actually passing out are by a few months, though there are times she can feel a prodrome. Notes tachycardia with sitting to standing. New in last few months. Started [employer] 07/2023. Noted HR 145-170 with activity and can get dizzy and get palpitations. At rest, HR can be elevated after standing, 110-120 bpm, can feel that at rest. At least once a day. Had echo 09/2023- normal. Had 3 d Holter 10/2023 but had no Sxs during that time and tracings were benign. No tob or significant ETOH. Labs 06/2023 done CMP, CBC, A1C; no major abnormalities. Jaya [place] Review of Systems Constitutional: Positive for fatigue. Negative for activity change, chills, diaphoresis and fever. HENT: Negative for nosebleeds and trouble swallowing. Eyes: Negative for discharge and visual disturbance. Respiratory: Negative for apnea, cough, chest tightness, shortness of breath and wheezing. Cardiovascular: Positive for palpitations (frequent). Negative for chest pain and leg swelling. Gastrointestinal: Negative for abdominal distention, abdominal pain, blood in stool, diarrhea, nausea and vomiting. Endocrine: Negative for cold intolerance and heat intolerance. Genitourinary: Negative for hematuria. Musculoskeletal: Negative for gait problem and myalgias. Skin: Negative for color change and rash. Neurological: Positive for dizziness (with increased HR-140's) and syncope. Negative for seizures, facial asymmetry, speech difficulty, weakness, light- headedness, numbness and headaches. Hematological: Does not bruise/bleed easily. Psychiatric/Behavioral: Positive for dysphoric mood (treated). Allergies Allergen Reactions Fluocinolone Anaphylaxis Amoxicillin Hives Outpatient Medications Prior to Visit Medication Sig Dispense Refill albuterol 108 (90 Base) MCG/ACT inhaler Inhale 2 puffs every 4 hours as needed. ARIPiprazole (Abilify) 5 MG tablet Take 5 mg by mouth daily. biotin 5000 MCG tablet Take 5,000 mcg by mouth before bedtime. CALCIUM CITRATE PO Take 500 mg by mouth 3 times daily. cholecalciferol (Vitamin D-3) 100 MCG (4000 UT) capsule Take 1 capsule (100 mcg) by mouth daily. (Patient taking differently: Take 2,000 Units by mouth daily.) 30 capsule 11 Cyanocobalamin (B-12) [address] 500 mcg under the tongue daily. Place 500 mcgunder the tongue to dissolve once daily 30 tablet 11 hydrOXYzine pamoate (Vistaril) 25 MG capsule Take 25 mg by mouth in the morning and 25 mg in the evening. Magnesium 500 MG capsule Take by mouth Nightly. medroxyPROGESTERone (Depo-Provera) 150 MG/ML suspension prefilled syringe injection syringe Inject 150 mg into the shoulder, thigh, or buttocks. Multiple Vitamins-Minerals (CENTRUM WOMEN PO) Take 2 tablets by mouth before bedtime. With Iron . Semaglutide-Weight Management (Wegovy) 0.25 MG/0.5ML solution auto-injector Inject 0.5 mL (0.25 mg)under the skin every 7 days. 2 mL 0 sertraline (Zoloft) 25 MG tablet Take by mouth daily. thiamine (Vitamin B-1) 50 MG tablet Take 1 tablet by mouth once daily 90 tablet 3 traZODone (Desyrel) 50 MG tablet Take by mouth Nightly. Ubrogepant (Ubrelvy) 100 MG tablet Take by mouth as needed. medroxyPROGESTERone (Depo-Provera) 150 MG/ML injection INJECT 1 ML INTRAMUSCULARLY EVERY 12 WEEKS (Patient not taking: Reported on 08/31/2024) No facility-administered medications prior to visit. Past Medical History: Diagnosis Date Asthma Blurred vision COVID-19 vaccine series completed 08/28/2021 Dizziness Heartburn mild Intestinal malabsorption 12/21/2022 Joint pain, knee Social History Tobacco Use Smoking status: Never Smokeless tobacco: Never Substance Use Topics Alcohol use: Not Currently Alcohol/week: 1.0 standard drink of alcohol Types: 1 Standard drinks or equivalent per week Past Surgical History: Procedure Laterality Date ESOPHAGOGASTRODUODENOSCOPY 04/06/2022 Dr. Salazar[facility] FINGER SURGERY 2005 Repair broken thumb LAP GASTRIC BYPASS/TONIO-EN-Y (HISTORICAL) 11/21/2022 [facility] - Dr Salazar TONSILLECTOMY (HISTORICAL) 1999 WISDOM TOOTH EXTRACTION 2011 Family History Problem Relation Name Age of Onset Other (75933) Mother heart problems Hypertension Mother Stroke Father Cancer Father Obesity Father Diabetes Father Colon cancer Paternal Grandfather Cancer Maternal Grandmother Cancer Paternal Grandfather Objective Vitals: 08/31/24 0931 08/31/24 1055 08/31/24 1057 08/31/24 1100 BP: 116/78 110/78 112/82 (!) 108/90 BP Location: Right arm Right arm Right arm Right arm Patient Position: Sitting Lying Sitting Standing BP Cuff Size: Adult Adult Adult Adult Pulse: 72 70 68 66 Weight: 180 lb (81.6 kg) Height: 5' 5.5 (1.664 m) Physical Exam Vitals reviewed. Constitutional: General: She is not in acute distress. Appearance: She is well-developed. She is not ill-appearing. HENT: Mouth/Throat: Mouth: Mucous membranes are moist. Neck: Vascular: No carotid bruit, hepatojugular reflux or JVD. Cardiovascular: Rate and Rhythm: Normal rate and regular rhythm. Pulses: Normal pulses. Heart sounds: Normal heart sounds. No murmur heard. Pulmonary: Effort: Pulmonary effort is normal. Breath sounds: Normal breath sounds. Abdominal: General: Bowel sounds are normal. Palpations: Abdomen is soft. Musculoskeletal: Right lower leg: No edema. Left lower leg: No edema. Neurological: Mental Status: She is alert. Gait: Gait normal. Psychiatric: Attention and Perception: Attention normal. Mood and Affect: Mood normal. Behavior: Behavior is cooperative. Cognition and Memory: Cognition and memory normal. Data Reviewed and Summarized No results found for: EFBP, PLVEF, LVEFPHYS, LVEF2D, EF Review of tests/labs done/ordered within my specialty: EKG in office: 08/31/24 ECG 12-LEAD 08/31/2024 10:04 AM (Final) Narrative Sinus Rhythm -Negative precordial T-waves. WITHIN NORMAL LIMITS Signed by: See Velasquez on 08/31/2024 10:04 AM Review of tests/labs done/ordered outside my specialty: Independent interpretation of tests: See Velasquez MD documented in this [facility]12-05-2024 NoteHNO ID: [id number] Author: KEYSHA ROUSE RN Service: ? Author Type: Registered Nurse Type: Progress Notes Filed: 08/06/2024 10:14 Note Text: Patient identified by name and date of . Jaya Hopson is here for a Depo Provera injection. Patient brought medication. Medication verified by dispensing pharmacist. Date last injected: 05/13/2024 Depo-Provera, 150 mg, administered IM left deltoid, Lot # [id number], expiration date 12/30/2025. Depo-Provera was given without incident. Date of last menses: Patient's last menstrual period was 05/04/2024. Irregular bleeding - No Menses ceased - Yes Patient instructed to return to clinic in 12 weeks. [email or web address] Provider AT was present in office at time of injection. [facility] History of Present illness Narrative* Keysha Rouse RN - 08/06/2024 8:56 AM EST Patient identified by name and date of . Jaya Hopson is here for a Depo Provera injection. Patient brought medication. Medication verified by dispensing pharmacist. Date last injected: 05/13/2024 Depo-Provera, 150 mg, administered IM left deltoid, Lot # [id number], expiration date 12/30/2025. Depo-Provera was given without incident. Date of last menses: Patient's last menstrual period was 05/04/2024. Irregular bleeding - No Menses ceased - Yes Patient instructed to return to clinic in 12 weeks. [email or web address].[email or web address] Provider AT was present in office at time of injection. Keysha Rouse RN [facility] [place] Telephone encounter Note * Telephone Encounter - Cem Staton RN - 08/03/2024 9:03 AM EST Advised patient that she can call periodically to try to get in sooner for cardiac tilt. Lili Staton RN, BSN [facility] Work Phone: [phone]) 718-187712-02-2024 Miscellaneous Notes* Telephone Encounter - Cem Staton RN - 08/03/2024 9:03 AM EST Advised patient that she can call periodically to try to get in sooner for cardiac tilt. Lili Staton RN, BSN documented in this [facility] [place]11-08-2024 Telephone encounter Note * Telephone Encounter - Kristen Ireland MA - 07/10/2024 7:13 AM EST ----- Message from Oumou Mendenhall MA sent at 04/09/2024 3:35 PM EDT ----- Patient due for 3 month recheck vitamin B12 after reducing supplement. Oumou Ramirez MA [facility]11-08-2024 Miscellaneous Notes* Telephone Encounter - Kristen Ireland MA - 07/10/2024 7:13 AM EST ----- Message from Oumou Mendenhall MA sent at 04/09/2024 3:35 PM EDT ----- Patient due for 3 month recheck vitamin B12 after reducing supplement. Oumuo Ramirez MA documented in this encounter[facility] [place]10-16-20[facility] History of Present illness Narrative* Sukhdeep Chan MA - 06/17/2024 1:30 PM EDT [facility] ROOMING NOTE POST WEIGHT LOSS SURGERY FOLLOW UP Patient: Jaya Hopson Service Date: 06/17/2024 Patient is 18 month(s) s/p RnY Gastric Bypass Today's Metrics: Post-Surgical Weight Loss Date: 06/17/24 Height: 5' 5 (165.1 cm) Weight: 180 lb (81.6 kg) BMI: 29.95 Weight Change: 5.6 lbs Total Weight Change: -123.4 lbs % EBWL: 73% Post-op Weight Metrics: Post-Surgical Weight Loss Date: 06/17/24 Height: 5' 5 (165.1 cm) Weight: 180 lb (81.6 kg) BMI: 29.95 Weight Change: 5.6 lbs Total Weight Change: -123.4 lbs % EBWL: 73% (From Surgical Weight Loss Tracker) Patient has the following questions: None Reported Pain: Patient rates pain on scale 0-10 as: 0 Exercise Compliance: Exercising: yes If yes: Type: walking Times per week: 5 Min per session: 30 Falls Risk Assessment Patient does not take medications which affect BP or mental status Patient does not t have newly prescribed or changed dosage of medications within past 30 days whichaffect BP or mental status Patient has not fallen in the past 2 months Patient does not t demonstrate unsteady gait Patient uses the following ambulatory assistive devices: none Patient states the presence of the following traits which increases risk of fall: none Patient is not on home O2 Pre-op Weight Metrics: Labs Completed: no - If NO, patient instructed to get labs drawn today or GIL If YES: Labs completed at [facility]? N/A If yes see Labs Tab Labs completed at Non-[facility] facility? N/A If yes see Encounters Tab - Orders only - Historical Provider - Date: Completed by: Sukhdeep Chan MA * Obdulia Garcia MD - 06/17/2024 1:30 PM EDT [facility] POST-OPERATIVE WEIGHT LOSS MANAGEMENT PROGRESS NOTE - FOLLOW UP HPI: Patient here today for 18 month post-weight loss surgery follow up The patient is a pleasant 29 y.o. year old female. The patient is feeling well. Denies nausea, vomiting, dysphagia, or any GERD Sx. Currently is taking a PPI. Patient states diet and exercise is going fairly well. Currently is eating 65-75 gm/day protein, and is compliant with prescribed multivitamins and supplements. Weight trend since last visit: gained 6 lbs over 6 m stable Labs were Not completed. All labs were: ordered Social History Tobacco Use Smoking status: Never Smokeless tobacco: Never Substance Use Topics Alcohol use: Not Currently Alcohol/week: 1.0 standard drink of alcohol Types: 1 Standard drinks or equivalent per week PLAN Physical Examination: BP 112/76 Pulse 81 Ht 5' 5 (1.651 m) Wt 180 lb (81.6 kg) BMI 29.95 kg/m Vital signs are stable. General: This patient is awake, alert, and oriented, and is in no apparent distress. red Current Diet This patient s current diet is: 80% meal plan Her diet contains adequate amounts of protein, adequate amounts of healthy fats, adequate amounts of green, leafy vegetables, and adequate amounts of fruits. Her comfort foods include: none Current Activity This patient currently does exercise for 45 Minutes per session, 4 times per week, including the following: walking. Current Eating Behaviors This patients demonstrates the following behaviors as they relate to her eating: structured She eats approximately 5-6 times per dnoneay. Her last meal/snack was at 6 am/pm. Progress Made Towards Goals: 3 month weight goal: 5 6 month weight goal: 5 12 month weight goal: 5 Plan: This patient's excess weight is causing the following co-morbid conditions at this time: S/p bariatric surgery stable Continue current management, continue weight loss program Focus on the meal structure, composition and portion control Discuss optimal weight Safe parameters for weight Discuss fiber Discuss implementing feedback system [x] Protein goal of 1g protein per 1 kg of ideal body weight: 75 grams [x] Patient advised to maintain a food/exercise/behavior diary until next physician visit. Pt to bring the completed diary to next visit [x] Lab order provided to patient for labs to be drawn Patient instructed to continue post-weight loss surgery diet recommendations. Patient instructed to continue to monitor for signs and symptoms of GERD Psych concerns : No Excessive skin concerns: No Refer to plastic surgery Physician Diet Recommendations given to patient See Follow up Section of today's encounter for next visit and additional scheduling orders Orders Placed This Encounter Procedures Zinc (Sendout) These orders are set for an approximate date - they can be drawn up to 3 months prior to the Expected Date on this Req. Please send results to: Izabela Rivero MD - [address] [place], [place] [id number] - [phone] And if not done at a [facility] Facility, please send to: [place] [address] Patient Name: Jaya [facility] 1995 Order Created by : Sukhdeep Chan MA Standing Status: Future Number of Occurrences: 1 Standing Expiration Date: 06/17/2025 Folate These orders are set for an approximate date - they can be drawn up to 3 months prior to the Expected Date on this Req. Please send results to: Izabela Rivero MD - [address] [facility] [id number] - [phone] And if not done at a [facility] Facility, please send to: [place] [id number] Patient Name: Jaya oHpson - 1995 Order Created by : Sukhdeep Chan MA Standing Status: Future Number of Occurrences: 1 Standing Expiration Date: 06/17/2025 Iron These orders are set for an approximate date - they can be drawn up to 3 months prior to the Expected Date on this Req. Please send results to: MD Tarik Haas E [facility] [address] - [phone] And if not done at a [facility] Facility, please send to: [place] [address] Patient Name: Jaya [facility] 1995 Order Created by : Sukhdeep Chan MA Standing Status: Future Number of Occurrences: 1 Standing Expiration Date: 06/17/2025 Ferritin These orders are set for an approximate date - they can be drawn up to 3 months prior to the Expected Date on this Req. Please send results to: MD Tarik Haas E [place] [id number] - [phone] And if not done at a [facility] Facility, please send to: [place] [address] Patient Name: Jaya [facility] 1995 Order Created by : Sukhdeep Chan MA Standing Status: Future Number of Occurrences: 1 Standing Expiration Date: 06/17/2025 Magnesium These orders are set for an approximate date - they can be drawn up to 3 months prior to the Expected Date on this Req. Please send results to: MD Tarik Haas E [place] [id number] - [phone] And if not done at a [facility] Facility, please send to: [place] [address] Patient Name: Jaya [facility] 1995 Order Created by : Sukhdeep Chan MA Standing Status: Future Number of Occurrences: 1 Standing Expiration Date: 06/17/2025 Vitamin D Deficiency Screening (Vit D 25) These orders are set for an approximate date - they can be drawn up to 3 months prior to the Expected Date on this Req. Please send results to: MD Tarik Haas E [facility] [id number] - [phone] And if not done at a [facility] Facility, please send to: [address], [facility] Patient Name: Jaya Hopson 1995 Order Created by : Sukhdeep Chan MA Standing Status: Future Number of Occurrences: 1 Standing Expiration Date: 06/17/2025 Vitamin B12 These orders are set for an approximate date - they can be drawn up to 3 months prior to the Expected Date on this Req. Please send results to: Izabela Rivero MD - [address] [place] [id number] - [phone] And if not done at a [facility], please send to: [address], [facility] Patient Name: Jaya [facility] 1995 Order Created by : Sukhdeep Chan MA Standing Status: Future Number of Occurrences: 1 Standing Expiration Date: 06/17/2025 Vitamin B1, whole blood ([facility]) These orders are set for an approximate date - they can be drawn up to 3 months prior to the Expected Date on this Req. Please send results to: Izabela Rivero MD - [address] [place] [id number] - [phone] And if not done at a [facility] Facility, please send to: [address], [facility] Patient Name: Jaya [facility] 1995 Order Created by : Sukhdeep Chan MA Standing Status: Future Number of Occurrences: 1 Standing Expiration Date: 06/17/2025 Comprehensive metabolic panel These orders are set for an approximate date - they can be drawn up to 3 months prior to the Expected Date on this Req. Please send results to: Izabela Rivero MD - [address] [place] [id number] - [phone] And if not done at a [facility] Facility, please send to: [facility] [address] [place] [address], [address], [address] Patient Name: Jaya Hopson - 1995 Order Created by : Sukhdeep Chan MA Standing Status: Future Number of Occurrences: 1 Standing Expiration Date: 06/17/2025 CBC These orders are set for an approximate date - they can be drawn up to 3 months prior to the Expected Date on this Req. Please send results to: Izabela Rivero MD - [address] [place] [address] - [phone] And if not done at a [facility] Facility, please send to: [facility] [facility] - [address] [place] [address], [address], [address] Patient Name: Jaya Hopson - 1995 Order Created by : Sukhdeep Chan MA Standing Status: Future Number of Occurrences: 1 Standing Expiration Date: 06/17/2025 Medications ordered during this encounter: Outpatient Encounter Medications as of 06/17/2024 Medication Sig Dispense Refill ARIPiprazole (Abilify) 5 MG tablet Take 5 mg by mouth daily. biotin 5000 MCG tablet Take 5,000 mcg by mouth before bedtime. CALCIUM CITRATE PO Take 500 mg by mouth 3 times daily. cholecalciferol (Vitamin D-3) 100 MCG (4000 UT) capsule Take 1 capsule (100 mcg) by mouth daily. (Patient taking differently: Take 2,000 Units by mouth daily.) 30 capsule 11 Cyanocobalamin (B-12) [address] 500 mcg under the tongue daily. Place 500 mcgunder the tongue to dissolve once daily (Patient taking differently: Place 500 mcg under the tongue1 (one) time per week. Place 500 mcg under the tongue to dissolve once daily) 30 tablet 11 hydrOXYzine pamoate (Vistaril) 25 MG capsule Take 25 mg by mouth in the morning and 25 mg in the evening. Magnesium 500 MG capsule Take by mouth Nightly. Multiple Vitamins-Minerals (CENTRUM WOMEN PO) Take 2 tablets by mouth before bedtime. With Iron . sertraline (Zoloft) 25 MG tablet Take by mouth daily. thiamine (Vitamin B-1) 50 MG tablet Take 1 tablet by mouth once daily 90 tablet 3 traZODone (Desyrel) 50 MG tablet Take by mouth Nightly. No facility-administered encounter medications on file as of 06/17/2024. Visit Diagnoses: 1. S/P bariatric surgery 2. 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 BMI 29.0-29.9,adult 5. Overweight (BMI 25.0-29.9) Current Medications: Patient's Medications New Prescriptions No medications on file Previous Medications ARIPIPRAZOLE (ABILIFY) 5 MG TABLET Take 5 mg by mouth daily. BIOTIN 5000 MCG TABLET Take 5,000 mcg by mouth before bedtime. CALCIUM CITRATE PO Take 500 mg by mouth 3 times daily. CHOLECALCIFEROL (VITAMIN D-3) 100 MCG (4000 UT) CAPSULE Take 1 capsule (100 mcg) by mouth daily. CYANOCOBALAMIN (B-12) [address] 500 mcg under the tongue daily. Place 500 mcgunder the tongue to dissolve once daily HYDROXYZINE PAMOATE (VISTARIL) 25 MG CAPSULE Take 25 mg by mouth in the morning and 25 mg in the evening. MAGNESIUM 500 MG CAPSULE Take by mouth Nightly. MULTIPLE VITAMINS-MINERALS (CENTRUM WOMEN PO) Take 2 tablets by mouth before bedtime. With Iron . SERTRALINE (ZOLOFT) 25 MG TABLET Take by mouth daily. THIAMINE (VITAMIN B-1) 50 MG TABLET Take 1 tablet by mouth once daily TRAZODONE (DESYREL) 50 MG TABLET Take by mouth Nightly. Modified Medications No medications on file Discontinued Medications No medications on file I spent a total of 30 minutes on the day of the visit discussing/counseling the patient regarding the post operative management listed below. 1. Adherence to nutrient-dense foods,containing sufficient amounts of lean proteins and fibers. Fluid 30 minutes before or after meals. 1 cup is the maximum meal size. 2.Food intolerance (vomiting and regurgitation,GERD, diarrhea, dumping snd and hypoglycemia) discussed 3.Micronutrient supplementation discussed 4. Physical activity - aerobic physical activity 150-300 min/wk and strength training 2-3 times perwk. 5. Counseling on no nicotine, NSAIDs, excessive caffeine and alcohol after surgery 6. In weight maintenance, doing great, healthy lifestyle is reinforced 7. Weight maintenance after bariatric surgery discussed 8. Weight regain prevention after bariatric surgery discussed The patient was seen and a full chart review was performed.Clinical documentation is updated and completed. documented in this [facility]10-01-2024 Miscellaneous Notes* Telephone Encounter - Cem Boggs DO - 06/02/2024 2:57 PM EDT It has been addressed Cem Boggs DO * Telephone Encounter - Luke Stephenson MA - 06/02/2024 2:43 PM EDT Patient lm on stating she send a my chart message and wants to know if someone can address it. Please advise. Luke Stephenson MA [facility] Telephone encounter Note * Telephone Encounter - Cem Boggs DO - 06/02/2024 2:57 PM EDT It has been addressed Cem Boggs DO [facility]-01-2024 Telephone encounter Note* Telephone Encounter - Luke Stephenson MA - 06/02/2024 2:43 PM EDT Patient lm on stating she send a my chart message and wants to know if someone can address it. Please advise. Luke Stephenson MA [facility]-01-2024 Telephone encounter Note* Telephone Encounter - Luke Stephenson MA - 06/02/2024 2:40 PM EDT Second message . [place] advise. Luke Stephenson MA [facility]10-01-2024 Miscellaneous Notes* Telephone Encounter - Luke Stephenson MA - 06/02/2024 2:40 PM EDT Second message . [place] advise. Luke Stephenson MA documented in this encounter[facility] [place] History of Present illness Narrative* Renae Everett RN - 05/13/2024 8:41 AM EDT Patient identified by name and date of . Jaya Hopson is here for a Depo Provera injection. Patient brought medication. Date last injected: 02/19/24 Depo-Provera, 150 mg, administered IM right deltoid, Lot # [id number], expiration date 12/26. Depo-Provera was given without incident. Date of last menses: No LMP recorded (lmp unknown). Patient has had an injection. Irregular bleeding - No Menses ceased - Yes Medication verified by dispensing pharmacist Patient instructed to return to clinic on 12 weeks +/- 5 days. [email or web address] Provider Yvrose Carrera CNP was present in office at time of injection. Renae Everett RN documented in this [facility] [place] Telephone encounter Note * Telephone Encounter - Luke Stephenson MA - 05/11/2024 2:01 PM EDT Laura on pt. Vm with all information. Luke Stephenson MA [facility] [place]-09-2024 Miscellaneous Notes* Telephone Encounter - Luke Stephenson MA - 05/11/2024 2:01 PM EDT Lm on pt. Vm with all information. Luke Stephenson MA * Telephone Encounter - Cem Boggs DO - 05/11/2024 11:12 AM EDT Order attached Cem Boggs DO * Telephone Encounter - Oumou Ramirez MA - 05/11/2024 7:46 AM EDT ----- Message from Kristen Echevarria MA sent at 04/09/2024 10:12 AM EDT ----- vit b12 in one month documented in this encounter[facility] [place] Telephone encounter Note * Telephone Encounter - Cem Boggs DO - 05/11/2024 11:12 AM EDT Order attached Cem Boggs DO [facility] [place]-09-2024 Telephone encounter Note* Telephone Encounter - Oumou Ramirez MA - 05/11/2024 7:46 AM EDT ----- Message from Kristen Echevarria MA sent at 04/09/2024 10:12 AM EDT ----- vit b12 in one month [facility] [place]08-30-2024 Instructions* Patient Instructions* Rimma Panda APRN.HIDE CURER - 05/01/2024 10:08 AM EDT Testing Tilt table test Orthostatic Self Care 1. Make all postural changes from lying to sitting or sitting to standing slowly. 2. Drink to 2.0 -2.5 L of fluids per day. With bad symptoms, drink 500 cc of water quickly. This will result in an increased blood pressure within 5 minutes of drinking the water. The effect will last up to one hour and may improve orthostatic intolerance. 3. Increase sodium in the diet to 3 - 5 g per day. If not helpful and BP is stable, may try 5-7 g per day. IF BLOOD PRESSURE RISES OR IS RISING CUT BACK ON SALT LOADING 4. Avoid large meals which can cause low blood pressure during digestion. It is better to eat smaller meals more often than three large meals. 5. Avoid alcohol. Alcohol and cause blood to pool in the legs which may worsen low blood pressure reactions when standing. Avoid excessive caffeine intake as it may increase urine production and reduce blood volume. 6. Perform lower extremity exercises to improve strength of the leg muscles. This will help preventblood from a pooling in the legs when standing and walking. Preferred exercises are walking, squatting or stationery bicycling. The nursing staff and medical assistants are a major part of YOUR TREATMENT TEAM and will be handling your phone calls, [place] messages and inquiries, if any. Unless explicitly told otherwise at thetime of your office visit, your study results and ensuing treatment plans will be discussed during your follow-up appointment. If you do not have a follow-up appointment and wish to discuss any issues directly with me, please feel free to obtain one. In regards to blood work, testing, and radiology reports these are released automatically to the patients. We do not comment on most testing on [employer] in a message or commentary unless there is a concern. You will not receive a message from me of the result unless there is a specific concern of the result I need you to address further in care with us or your primary medical team. Make sure to check your my chart email or melissa. documented in this encounter[facility] [place] History of Present illness Narrative* Rimma Panda APRN.CNP - 05/01/2024 9:00 AM EDT Images from the original note were not included. [facility] New Patient Evaluation Consulting Provider: Cem Boggs [address] [place] [phone] Individuals who were included in, or assisted with the encounter were: Jaya Hopson Rimma Panda APRN.HIDE CURER Chief Complaint/Issues: Jaya Hopson is a 29 year old female seen in the [facility] for: Syncope Tremor HPI: She started to have episodes of syncope following bypass surgery last year. She had a recent episode at work- she was in twilight like state, could still hear and slid down the wall. She will get que's of frequent yawning, vision static, hearing muffles, ringing in ears and will black/moreno out. LOC only a few seconds. No loss of bowel or bladders, no injuries, no mouth mastication, no convulsions. She will have symptoms of shaking, weakness, hot sensation with out sweating, lightheadedness. These episodes occur 1-2 times per week. She will lay down, drink water or eat to help symptoms. Occurs more when standing or mild walking, does not notice much with strenuous activity. She reports dizziness with walking on a treadmill- like she is still moving or the room is moving when she is stopped. She will have episodes of vertigo (room spinning). Will occur 1-2 times per day. Will stand againsta wall. Occurs mostly while standing. Has not noticed when laying down. Recently started Abilify again. She reports the next days she passed out at work. She also reports she was started on propranolol which she had not taken prior to episode. She reports history of Migraines She had cardiac workup for evaluation of tachycardia and sob in September. Autonomic check list: YES (Y) or NO (N) Dry mouth:- Dry eyes:- Change in sweat:- Constipation:- Abdominal Bloating with shortly after eating:+/- depending on what she eats. Notes HR will rise after meals. Fluctuation of diarrhea and constipation:- Urination:- Change in taste:- Challenge swallowing foods:- Skin changes of blue or redness to distal limbs:- Fainting /near syncope/syncope:+ Dizziness:+ Light headiness:+ Chest pain:- Palpitations: - Challenge in breathing:- Tachycardia: + Temperature Regulation: + Paraesthesias: - Hx of head/neck trauma? No Hx of severe viral illness? Has had Covid Hx of autoimmune disease? No Relevant Work Up To Date 10/04/2023 3-day Holter monitor. Diagnostic time 2 days 12 hours Overall rhythm is sinus with average heart rate 79 bpm. Heart rate in sinus ranges from 50 to bpm to 146 bpm. Rare PVCs Rare PACs No patient events No atrial fibrillation No significant pauses 09/17/2023 Echocardiogram Summary 1. Left ventricular systolic function is normal with an ejection fraction by Biplane Method of Discs of 61 %. 2. Right ventricular size and systolic function are normal. 3. The left ventricular diastolic function is normal. 4. No hemodynamically significant valvular disease. Current management of orthostatic condition Exercise: light exercise Water: less than I should about 40 oz Salt: dietary Stockings: does not wear General Examination: BP 120/78 Pulse 72 Resp 16 Wt 82.4 kg (181 lb 10.5 oz) LMP (LMP Unknown) SpO2 98% BMI 30.46 kg/m She is accompanied by her parent Mother. General: Awake, alert, interactive, no acute distress, good nutritional status, normal development,well-kept Neurological Exam Mental Status Alert, fully oriented, attentive, with normal cognition, memory, speech and affect. Cranial Nerves Visual yee intact. Pupils reactive. Extraocular movements conjugate and full. No ptosis. No nystagmus. Facial sensation intact. Face symmetric and strong. Palate and tongue normal. XI normal. Motor Examination and Coordination Motor examination with normal bulk, strength and tone. No drift. Normal rapid alternating movementsand coordination. No adventitious movements or significant tremor. Reflexes Deep tendon reflexes graded by MRC Deep Tendon Reflexes Right Left Biceps 2+ 2+ Triceps 2+ 2+ Brachioradialis 2+ 2+ Patellar 2+ 2+ Achilles 2+ 2+ Plantar Downgoing Downgoing Sensation Sensation intact to light touch, pinprick, proprioception and vibration. Assessment & Plan 05/01/2024 - General Neurology, Rimma Panda APRN.HIDE CURER ASSESSMENT Jaya Hopson is a 29 year old female here today for evaluation of syncopal episodes starting >1 year ago. Syncope worsened following gastric bypass surgery and has had near syncopal symptoms occurring at least 1-2 times per week with prolonged standing or mild activity. Recent episode occurred at work and was found to be hypotensive. Syncope is brief lasting a few seconds without seizure like activity. Neurologic exam is unremarkable. Orthostatic vitals in office are stable. She has hadcardiac workup including ECHO and Holter monitor earlier this year without significant findings. Symptoms could be suggestive of autonomic dysfunction/POTS/OH vs vasovagal. Will obtain tilt table test. No evidence on exam for neuropathy. We discussed importance of orthostatic self care including slow postural changes, increased hydration, salt loading , small meals, avoiding alcohol and caffeine,and increased exercise. Will defer additional recommendation until after testing is complete. PLAN 1. Tilt table test Encounter Diagnosis ICD-10-CM 1. Syncope, unspecified syncope type R55 TILT TABLE EVALUATION 2. Orthostatic lightheadedness R42 TILT TABLE EVALUATION 3. Tachycardia R00.0 TILT TABLE EVALUATION 4. Near syncope R55 TILT TABLE EVALUATION No follow-ups on file. Data Review Objective Current Outpatient Medications Medication Sig ARIPiprazole (ABILIFY) 2 mg tablet Take 1 tablet by mouth every afternoon. traZODone (DESYREL) 50 mg tablet TAKE 1/2 (ONE-HALF) TABLET BY MOUTH ONCE DAILY AT BEDTIME NEEDED albuterol HFA (PROVENTIL HFA, VENTOLIN HFA) 90 mcg/actuation inhaler Inhale 2 Puffs as instructed every 4 hours as needed for wheezing/shortness of breath. medroxyPROGESTERone (DEPO-PROVERA) 150 mg/mL injection Inject 1 mL intramuscularly every 12 weeks. mv-min/iron/folic/calcium/vitK (WOMEN'S MULTIVITAMIN ORAL) Take 2 tablets by mouth once daily. Magnesium 250 mg tab Take 250 mg by mouth once daily. Biotin 10,000 mcg cap Take 1 capsule by mouth once daily. cholecalciferol (VITAMIN D-3) 50 mcg (2,000 unit) tablet Take 1,000 Units by mouth once daily. calcium carbonate (CALCIUM 600 ORAL) Take 1 tablet by mouth three times a day. thiamine (VITAMIN B-1) 50 mg tablet Take 50 mg by mouth once daily. cyanocobalamin (VITAMIN B-12) 500 mcg tablet Take 1 tablet by mouth every other week. galcanezumab-gnlm (EMGALITY PEN) 120 mg/mL pen Inject 1 mL subcutaneously once every month. Do not shake. ubrogepant (UBRELVY) 100 mg tablet Take 1/2 to 1 tablet by mouth as needed at onset of migraine, repeat in 2 hours if needed. 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, Not Intractable Imbalance Posture Abnormality Dizziness Mild Intermittent Asthma With Acute Exacerbation Obesity, Class I, Bmi 30-34.9 Anxiety and Depression PAST MEDICAL HISTORY No date: Asthma No date: Brain lesion No date: Chiari malformation type I (HCC) No date: Migraines No date: Thrombocytopenia (HCC) PAST SURGICAL HISTORY 2012: DENTAL SURGERY HX Comment: wisdom teeth removed 11/21/2022: GASTRIC BYPASS HX 2004: HAND SURGERY HX; Left Comment: broken thumb repair No date: TONSILLECTOMY AND ADENOIDECTOMY HX Comment: age 5 Social History Tobacco Use Smoking status: Never Smokeless tobacco: Never Vaping Use Vaping status: Never Used Substance Use Topics Alcohol use: Not Currently Drug use: No FAMILY HISTORY Problem Relation Age of Onset Diabetes Mother Hypertension Mother Heart Attack Mother Diabetes Father Prostate Cancer Father Stroke Father Diabetes Sister other (other) Sister No Known Problems Maternal Grandmother Lung Cancer Maternal Grandfather Colon Cancer Paternal Grandfather Review of Systems Constitutional: Positive for fatigue. Negative for appetite change, fever and recent unintentional weight loss. Skin: Negative. HENT: Negative. Musculoskeletal: Positive for neck pain. Respiratory: Negative. Cardiovascular: Positive for syncope. Gastrointestinal: Negative. Endocrine: Negative. Genitourinary: Negative. Hematologic/Lymphatic: Negative. Allergic/Immunologic: Negative. Lab and Test Review: Appointment on 04/08/2024 Component Date Value Ref Range Status Vitamin B12 04/08/2024 1,365 (H) 232 - 1,245 pg/mL Final Appointment on 02/28/2024 Component Date Value Ref Range Status WBC 02/28/2024 4.90 3.70 - 11.00 k/uL Final RBC 02/28/2024 4.68 3.90 - 5.20 m/uL Final Hemoglobin 02/28/2024 13.8 11.5 - 15.5 g/dL Final Hematocrit 02/28/2024 41.8 36.0 - 46.0 % Final MCV 02/28/2024 89.3 80.0 - 100.0 fL Final MCH 02/28/2024 29.5 26.0 - 34.0 pg Final MCHC 02/28/2024 33.0 30.5 - 36.0 g/dL Final RDW-CV 02/28/2024 12.5 11.5 - 15.0 % Final Platelet Count 02/28/2024 122 (L) 150 - 400 k/uL Final MPV 02/28/2024 12.6 9.0 - 12.7 fL Final Neutrophils % 02/28/2024 48.8 % Final Abs Neut 02/28/2024 2.39 1.45 - 7.50 k/uL Final Lymphocytes % 02/28/2024 41.8 % Final Abs Lymph 02/28/2024 2.05 1.00 - 4.00 k/uL Final Monocytes % 02/28/2024 5.1 % Final Abs Tate 02/28/2024 0.25 <0.87 k/uL Final Eosinophils % 02/28/2024 3.7 % Final Abs Eosin 02/28/2024 0.18 <0.46 k/uL Final Basophils % 02/28/2024 0.4 % Final Abs Baso 02/28/2024 <0.03 <0.11 k/uL Final Immature Granulocytes % 02/28/2024 0.2 % Final Abs Immature Gran 02/28/2024 <0.03 <0.10 k/uL Final NRBC 02/28/2024 0.0 /100 WBC Final Absolute nRBC 02/28/2024 <0.01 <0.01 k/uL Final Diff Type 02/28/2024 Auto Final Office Visit on 02/19/2024 Component Date Value Ref Range Status Urine hCG (POCT) 02/19/2024 Negative Negative Final Location:[facility], [address] [facility], [place], [address] Community Health Nurse Staff (POCT) 02/19/2024 Internal QC OK Final Appointment on 02/05/2024 Component Date Value Ref Range Status WBC 02/05/2024 3.67 (L) 3.70 - 11.00 k/uL Final RBC 02/05/2024 4.31 3.90 - 5.20 m/uL Final Hemoglobin 02/05/2024 13.1 11.5 - 15.5 g/dL Final Hematocrit 02/05/2024 40.5 36.0 - 46.0 % Final MCV 02/05/2024 94.0 80.0 - 100.0 fL Final MCH 02/05/2024 30.4 26.0 - 34.0 pg Final MCHC 02/05/2024 32.3 30.5 - 36.0 g/dL Final RDW-CV 02/05/2024 12.7 11.5 - 15.0 % Final Platelet Count 02/05/2024 136 (L) 150 - 400 k/uL Final MPV 02/05/2024 13.0 (H) 9.0 - 12.7 fL Final Neutrophils % 02/05/2024 53.3 % Final Abs Neut 02/05/2024 1.96 1.45 - 7.50 k/uL Final Lymphocytes % 02/05/2024 37.1 % Final Abs Lymph 02/05/2024 1.36 1.00 - 4.00 k/uL Final Monocytes % 02/05/2024 6.0 % Final Abs Tate 02/05/2024 0.22 <0.87 k/uL Final Eosinophils % 02/05/2024 3.3 % Final Abs Eosin 02/05/2024 0.12 <0.46 k/uL Final Basophils % 02/05/2024 0.3 % Final Abs Baso 02/05/2024 <0.03 <0.11 k/uL Final Immature Granulocytes % 02/05/2024 0.0 % Final Abs Immature Gran 02/05/2024 <0.03 <0.10 k/uL Final Diff Type 02/05/2024 Auto Final Outside Data/Labs: Subjective Patient-Entered Data: Autonomic Screening COMPASS-31 Past Scores No data to display NM Treatment and Fall Risk PROMIS-10 04/24/2024 01/14/2024 PROMIS 10 Health, in general Good Very good Quality of life, in general Good Good Physical health, in general Good Very good Mental health, in general Fair Fair Social activities satisfaction Fair Good Performing ADL's Completely Completely Social role satisfaction Good Very good Pain, on average 5 2 Fatigue, on average Moderate Moderate Emotional problems Always Always PHYSICAL Score 44.9 (Good) 50.8 (Very Good) MENTAL Score 33.8 (Fair) 36.3 (Fair) PHQ-9 04/24/2024 04/20/2024 PHQ-9 All Questions Little interest or pleasure in doing things 1 1 Feeling down, depressed, or hopeless 3 3 Trouble falling or staying asleep, or sleeping too much 2 2 Feeling tired or having little energy 3 3 Poor appetite or overeating 1 1 Feeling bad about yourself - or that you are a failure or have let yourself or your family down 1 1 Trouble concentrating on things, such as reading the newspaper or watching television 2 2 Moving or speaking so slowly that other people could have noticed. Or the opposite - being so fidgety or restless that you have been moving around a lot more than usual 2 2 Thoughts that you would be better off , or of hurting yourself in some way 0 0 PHQ-9 Score 15 15 (0-4) minimal depression (5-9) mild depression (10-14) moderate depression (15-19) moderately severe depression (20-27) severe depression MAYCOL-7 04/24/2024 04/20/2024 MAYCOL-7 All Questions Feeling nervous, anxious, or on edge Nearly Everyday Nearly Everyday Not being able to stop or control worrying More than half the days More than half the days Worrying too much about different things More than half the days More than half the days Trouble relaxing Several days Several days Being so restless that it is hard to sit still Not at all Not at all Becoming easily annoyed or irritable Nearly Everyday Nearly Everyday Feeling afraid, as if something awful might happen Several days Several days MAYCOL-7 Score 12 12 (0-5) mild anxiety (6-10) moderate anxiety (11-15) moderately severe anxiety (16-21) severe anxiety Sleep 04/24/2024 -- Snore Loudly No Tired, fatigued or sleepy in daytime Yes Stop breathing or choking/gasping during sleep No High blood pressure No Probability of moderate-severe sleep apnea (%) SAPS V2 6 (Sleep study not recommended) No data to display I spent a total of 60 minutes on the date of the service which included preparing to see the patient, [id number] patient care, completing clinical documentation, obtaining and/or reviewing separately obtained history, performing a medically appropriate examination, counseling and educating the pat ient/family/caregiver, and ordering medications, tests, or procedures. Rimma Panda APRN.CNP 04/24/2024 Sleep Apnea Probability Snores loudly: No Tired, fatigued or sleepy in daytime: Yes Stops breathing or choking/gasping during sleep: No High blood pressure: No Sleep Apnea Probability Score: 6 (Sleep study not recommended) documented in this encounterSelect [facility] [place] NoteHNO ID: [id number] Author: KRISTIE ROSENTHAL PT Service: ? Author Type: Physical Therapist Type: Progress Notes Filed: 04/30/2024 14:59 Note Text: 04/30/2024 [facility] SPORTS THERAPY PHYSICAL THERAPY DISCONTINUANCE OF CARE Plan of Care Period: Start of Care Date: 01/29/24 Last Visit Date: 02/18/2024 Therapy Program: The following is a summary of the interventions provided for this episode of care; Therapeutic exercise and Manual therapy Assessment: Based on most recent visit, patient was progressing as expected toward functional goals based on home exercise program compliance, pain levels, and documented subjective information on progress. Unable to formally assess goal achievement, as patient has not returned to therapy or scheduled additional follow-up appointments. Reason for Discontinuation of Care: Patient has not returned to therapy or scheduled additional follow-up appointments. Kristie Rosenthal, [facility]08-23-2024 History of Present illness Narrative* Aspen Martinez APRN.CNP - 04/24/2024 8:00 AM EDT Head[facility] - Follow up Virtual Visit Patient prefers to be seen for in person appointment. Aspen Martinez APRN.CNP Headache Section [facility] April 24, 2024 documented in this encounter[facility] [place] Instructions* Patient Instructions* Sheets, Cem C, DO - 04/13/2024 11:28 AM EDT Stop propranolol documented in this encounter[facility] [place] NoteHNO ID: [id number] Author: CEM BOGGS DO Service: ? Author Type: Physician Type: Progress Notes Filed: 04/13/2024 14:26 Note Text: Subjective The history is provided by the patient. 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 Taylor at [facility] in October, including EKG and echo, and her workup was normal She is concerned about the shakiness in her hands, and the fact that her migraines last a long time She has a family history of Parkinson's disease in her grandmother and aunt She has tremors that wax and wane, primarily in her hands She gets weak, hot and dizzy when she is shaking, does not perspire, and feels like she cannot cool down ALLERGIES Allergen Reactions Fluocinolone Anaphylaxis Amoxicillin Hives Current Outpatient Medications Medication Sig Dispense Refill ARIPiprazole (ABILIFY) 2 mg tablet Take 1 tablet by mouth every afternoon. propranolol (INDERAL) 10 mg tablet Take 1 tablet by mouth every 12 hours. traZODone (DESYREL) 50 mg tablet TAKE 1/2 (ONE-HALF) TABLET BY MOUTH ONCE DAILY AT BEDTIME NEEDED albuterol HFA (PROVENTIL HFA, VENTOLIN HFA) 90 mcg/actuation inhaler Inhale 2 Puffs as instructed every 4 hours as needed for wheezing/shortness of breath. 1 Each 2 medroxyPROGESTERone (DEPO-PROVERA) 150 mg/mL injection Inject 1 mL intramuscularly every 12 weeks. 1 mL 4 mv-min/iron/folic/calcium/vitK (WOMEN'S MULTIVITAMIN ORAL) Take 2 tablets by mouth once daily. Magnesium 250 mg tab Take 250 mg by mouth once daily. Biotin 10,000 mcg cap Take 1 capsule by mouth once daily. cholecalciferol (VITAMIN D-3) 50 mcg (2,000 unit) tablet Take 1,000 Units by mouth once daily. calcium carbonate (CALCIUM 600 ORAL) Take 1 tablet by mouth three times a day. thiamine (VITAMIN B-1) 50 mg tablet Take 50 mg by mouth once daily. cyanocobalamin (VITAMIN B-12) 500 mcg tablet Take 1 tablet by mouth every other week. galcanezumab-gnlm (EMGALITY PEN) 120 mg/mL pen Inject 1 mL subcutaneously once every month. Do not shake. 1 Each 11 ubrogepant (UBRELVY) 100 mg tablet Take 1/2 to 1 tablet by mouth as needed at onset of migraine, repeat in 2 hours if needed. 10 tablet 11 melatonin 1 mg tablet Take 1 tablet by mouth at bedtime as needed for insomnia. (Patient not taking: Reported on 04/13/2024) galcanezumab-gnlm (EMGALITY PEN) 120 mg/mL pen Inject 2 pens (240 mg) under the skin 1 time only for initial loading dose. Refrigerate. Do not shake. (Patient not taking: Reported on 04/13/2024) 2 Each 0 Current Facility-Administered Medications Medication Dose Route Frequency Provider Last Rate Last Admin medroxyPROGESTERone 150 mg injection (DEPO-PROVERA) 150 mg INTRAMUSCULAR every 12 weeks Daniel Olivo APRN.CNM 150 mg at 02/19/24 5414 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, Not Intractable Imbalance Posture Abnormality Dizziness Mild Intermittent Asthma With Acute Exacerbation Obesity, Class I, Bmi 30-34.9 Social History Tobacco Use Smoking status: Never Smokeless tobacco: Never Vaping Use Vaping Use: Never used Substance Use Topics Alcohol use: Not Currently Drug use: No Family History Problem Relation Age of Onset Diabetes Mother Hypertension Mother Heart Attack Mother Diabetes Father Prostate Cancer Father Stroke Father Diabetes Sister other (other) Sister No Known Problems Maternal Grandmother Lung Cancer Maternal Grandfather Colon Cancer Paternal Grandfather Reviewed past medical history, family history and surgeries. All medications and supplements were reviewed with the patient. Review of Systems Constitutional: Negative for chills, diaphoresis, fever, malaise/fatigue and weight loss. HENT: Negative for ear pain and hearing loss. Eyes: Negative for blurred vision and double vision. Respiratory: Negative for cough and shortness of breath. Cardiovascular: Negative for chest pain, palpitations and leg swelling. Gastrointestinal: Negative for co (more content not included)...[facility]08-12-2024 History of Present illness Narrative* Cem Boggs, DO - 04/13/2024 11:15 AM EDT Subjective The history is provided by the patient. 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 Taylor at [facility] in October, including EKG and echo, and her workup was normal She is concerned about the shakiness in her hands, and the fact that her migraines last a long time She has a family history of Parkinson's disease in her grandmother and aunt She has tremors that wax and wane, primarily in her hands She gets weak, hot and dizzy when she is shaking, does not perspire, and feels like she cannot cooldown ALLERGIES Allergen Reactions Fluocinolone Anaphylaxis Amoxicillin Hives Current Outpatient Medications Medication Sig Dispense Refill ARIPiprazole (ABILIFY) 2 mg tablet Take 1 tablet by mouth every afternoon. propranolol (INDERAL) 10 mg tablet Take 1 tablet by mouth every 12 hours. traZODone (DESYREL) 50 mg tablet TAKE 1/2 (ONE-HALF) TABLET BY MOUTH ONCE DAILY AT BEDTIME NEEDED albuterol HFA (PROVENTIL HFA, VENTOLIN HFA) 90 mcg/actuation inhaler Inhale 2 Puffs as instructed every 4 hours as needed for wheezing/shortness of breath. 1 Each 2 medroxyPROGESTERone (DEPO-PROVERA) 150 mg/mL injection Inject 1 mL intramuscularly every 12 weeks. 1 mL 4 mv-min/iron/folic/calcium/vitK (WOMEN'S MULTIVITAMIN ORAL) Take 2 tablets by mouth once daily. Magnesium 250 mg tab Take 250 mg by mouth once daily. Biotin 10,000 mcg cap Take 1 capsule by mouth once daily. cholecalciferol (VITAMIN D-3) 50 mcg (2,000 unit) tablet Take 1,000 Units by mouth once daily. calcium carbonate (CALCIUM 600 ORAL) Take 1 tablet by mouth three times a day. thiamine (VITAMIN B-1) 50 mg tablet Take 50 mg by mouth once daily. cyanocobalamin (VITAMIN B-12) 500 mcg tablet Take 1 tablet by mouth every other week. galcanezumab-gnlm (EMGALITY PEN) 120 mg/mL pen Inject 1 mL subcutaneously once every month. Do not shake. 1 Each 11 ubrogepant (UBRELVY) 100 mg tablet Take 1/2 to 1 tablet by mouth as needed at onset of migraine, repeat in 2 hours if needed. 10 tablet 11 melatonin 1 mg tablet Take 1 tablet by mouth at bedtime as needed for insomnia. (Patient not taking: Reported on 04/13/2024) galcanezumab-gnlm (EMGALITY PEN) 120 mg/mL pen Inject 2 pens (240 mg) under the skin 1 time only for initial loading dose. Refrigerate. Do not shake. (Patient not taking: Reported on 04/13/2024) 2 Each 0 Current Facility-Administered Medications Medication Dose Route Frequency Provider Last Rate Last Admin medroxyPROGESTERone 150 mg injection (DEPO-PROVERA) 150 mg INTRAMUSCULAR every 12 weeks Daniel Olivo, DEE.CNM 150 mg at 02/19/24 1517 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, Not Intractable Imbalance Posture Abnormality Dizziness Mild Intermittent Asthma With Acute Exacerbation Obesity, Class I, Bmi 30-34.9 Social History Tobacco Use Smoking status: Never Smokeless tobacco: Never Vaping Use Vaping Use: Never used Substance Use Topics Alcohol use: Not Currently Drug use: No Family History Problem Relation Age of Onset Diabetes Mother Hypertension Mother Heart Attack Mother Diabetes Father Prostate Cancer Father Stroke Father Diabetes Sister other (other) Sister No Known Problems Maternal Grandmother Lung Cancer Maternal Grandfather Colon Cancer Paternal Grandfather Reviewed past medical history, family history and surgeries. All medications and supplements were reviewed with the patient. Review of Systems Constitutional: Negative for chills, diaphoresis, fever, malaise/fatigue and weight loss. HENT: Negative for ear pain and hearing loss. Eyes: Negative for blurred vision and double vision. Respiratory: Negative for cough and shortness of breath. Cardiovascular: Negative for chest pain, palpitations and leg swelling. Gastrointestinal: Negative for constipation, diarrhea and heartburn. Genitourinary: Negative for dysuria and frequency. Musculoskeletal: Negative for back pain, falls, joint pain and myalgias. Skin: Negative for itching and rash. Neurological: Positive for tremors and headaches. Negative for dizziness and weakness. Syncope Endo/Heme/Allergies: Does not bruise/bleed easily. Psychiatric/Behavioral: Negative for depression and substance abuse. The patient does not have insomnia. Objective BP 98/68 Pulse 64 Temp 36.8 C (98.2 F) Resp 16 Ht 164.5 cm (5' 4.75) Wt 81.2 kg (179 lb) LMP (LMP Unknown) BMI 30.02 kg/m Physical Exam Constitutional: Appearance: Normal appearance. HENT: Head: Normocephalic and atraumatic. Nose: Nose normal. Mouth/Throat: Mouth: Mucous membranes are moist. Dentition: Normal dentition. Eyes: General: Lids are normal. Extraocular Movements: Extraocular movements intact. Conjunctiva/sclera: Conjunctivae normal. Pupils: Pupils are equal, round, and reactive to light. Neck: Thyroid: No thyroid mass or thyromegaly. Vascular: No carotid bruit. Trachea: Phonation normal. Cardiovascular: Rate and Rhythm: Regular rhythm. Heart sounds: Normal heart sounds. No murmur heard. No friction rub. No gallop. Pulmonary: Effort: Pulmonary effort is normal. Breath sounds: Normal breath sounds. No wheezing or rales. Abdominal: General: Bowel sounds are normal. There is no distension. Palpations: Abdomen is soft. There is no mass. Tenderness: There is no abdominal tenderness. Musculoskeletal: General: No swelling or tenderness. Normal range of motion. Cervical back: Normal range of motion and neck supple. No edema. Lymphadenopathy: Cervical: No cervical adenopathy. Skin: General: Skin is warm and dry. Findings: No erythema or rash. Nails: There is no clubbing. Neurological: Mental Status: She is alert and oriented to person, place, and time. Cranial Nerves: No cranial nerve deficit. Motor: Motor function is intact. Coordination: Coordination normal. Gait: Gait is intact. Comments: Fine tremor of hands b/l when arms are outstretched, no tremor at rest Psychiatric: Attention and Perception: Attention normal. Mood and Affect: Mood and affect normal. Speech: Speech normal. Behavior: Behavior normal. Behavior is cooperative. Thought Content: Thought content normal. Cognition and Memory: Cognition and memory normal. Judgment: Judgment normal. ASSESSMENT/PLAN: 1. Syncope, unspecified syncope type - ICD9: 780.2, ICD10: R55 (primary diagnosis) Cardiac workup completed by Dr. Taylor at [facility] in November 2023 showing no cardiac etiology to thesyncope Pt sees neurologist in [place] for migraine headaches, would like to see someone closer to her home for tremors and syncope - CONSULT TO NEUROLOGY - Trish Tirado 2. Tremors of nervous system - ICD9: 781.0, ICD10: R25.1 - CONSULT TO NEUROLOGY - Trish Tirado 3. Idiopathic hypotension - ICD9: 458.9, ICD10: I95.0 Pt advised to not take propranolol for anxiety as needed, as it will lower her blood pressure 4. Anxiety and depression - ICD9: 300.00, 311, ICD10: F41.9, F32.A Pt advised to not take propranolol for anxiety ss needed, as it will lower her blood pressure 5. Obesity, Class I, BMI 30-34.9 - ICD9: 278.00, ICD10: E66.9 Lifestyle modification recommended Cem Boggs DO documented in this encounter[facility] [place] History of Present illness Narrative* Brannon Sainz MD - 02/28/2024 11:25 AM EDT HISTORY OF PRESENT ILLNESS: Jaya Hopson is a 28 year old female referred for chronic mild thrombocytopenia and new leukopenia. We reviewed her labs over the years, long history mild thrombocytopenia. Recent episode leukopenia, normally ok here. She feels well, no B sx no recurrent infections. CLINICAL IMPRESSION: Mild chronic thrombocytopenia, physiologic or less likley mild chronic ITP Episode leukoepnia RECOMMENDATION/PLAN: 1. Watch cbc, no intervention unless we see progressive deterioration of platelet count or white count (do not expect this) Written and verbal health teaching given to patient, patient verbalizes understanding and agrees with treatment plan. PAST MEDICAL HISTORY Diagnosis Date Asthma Brain lesion Chiari malformation type I (HCC) Migraines Thrombocytopenia (HCC) PAST SURGICAL HISTORY Procedure Laterality Date DENTAL SURGERY HX 2012 wisdom teeth removed GASTRIC BYPASS HX 11/21/2022 HAND SURGERY HX Left 2004 broken thumb repair TONSILLECTOMY AND ADENOIDECTOMY HX age 5 FAMILY HISTORY Problem Relation Age of Onset Diabetes Mother Hypertension Mother Heart Attack Mother Diabetes Father Prostate Cancer Father Stroke Father Diabetes Sister other (other) Sister No Known Problems Maternal Grandmother Lung Cancer Maternal Grandfather Colon Cancer Paternal Grandfather Social History Tobacco Use Smoking status: Never Smokeless tobacco: Never Vaping Use Vaping Use: Never used Substance Use Topics Alcohol use: Not Currently Drug use: No ALLERGIES: ALLERGIES Allergen Reactions Fluocinolone Anaphylaxis Amoxicillin Hives CURRENT OUTPATIENT MEDICATIONS: medroxyPROGESTERone (DEPO-PROVERA) 150 mg/mL injection^Inject 1 mL intramuscularly every 12 weeks.^Disp: 1 mL^Rfl: 4 mv-min/iron/folic/calcium/vitK (WOMEN'S MULTIVITAMIN ORAL)^Take 2 tablets by mouth once daily.^Disp: ^Rfl: Magnesium 250 mg tab^Take 250 mg by mouth once daily.^Disp: ^Rfl: Biotin 10,000 mcg cap^Take 1 capsule by mouth once daily.^Disp: ^Rfl: cholecalciferol (VITAMIN D-3) 50 mcg (2,000 unit) tablet^Take 2,000 Units by mouth once daily.^Disp: ^Rfl: calcium carbonate (CALCIUM 600 ORAL)^Take 1 tablet by mouth three times a day.^Disp: ^Rfl: thiamine (VITAMIN B-1) 50 mg tablet^Take 50 mg by mouth once daily.^Disp: ^Rfl: cyanocobalamin (VITAMIN B-12) 500 mcg tablet^Take 1 tablet by mouth one time a week.^Disp: ^Rfl: melatonin 1 mg tablet^Take 1 tablet by mouth at bedtime as needed for insomnia.^Disp: ^Rfl: galcanezumab-gnlm (EMGALITY PEN) 120 mg/mL pen^Inject 2 pens (240 mg) under the skin 1 time only for initial loading dose. Refrigerate. Do not shake.^Disp: 2 Each^Rfl: 0 galcanezumab-gnlm (EMGALITY PEN) 120 mg/mL pen^Inject 1 mL subcutaneously once every month. Do not shake.^Disp: 1 Each^Rfl: 11 ubrogepant (UBRELVY) 100 mg tablet^Take 1/2 to 1 tablet by mouth as needed at onset of migraine, repeat in 2 hours if needed.^Disp: 10 tablet^Rfl: 11 albuterol HFA (PROVENTIL HFA, VENTOLIN HFA) 90 mcg/actuation inhaler^Inhale as instructed.^Disp: ^Rfl: REVIEW OF SYSTEMS: GENERAL: No fever, night sweats, weight loss or malaise. All other reviewed and negative other than HPI. PHYSICAL EXAMINATION: VITAL SIGNS: BP 114/83 Pulse 60 Temp (Src) 98.6 (Temporal) Ht 5' 5.354 (1.66m) Wt 179 lb 8oz (81.4kg) SpO2 100% BMI 29.55 kg/(m^2). GENERAL APPEARANCE: Well appearing, in no acute distress, alert and oriented x3, well-hydrated, well nourished. I spent a total of 30 minutes on the date of the service which included preparing to see the patient, [id number] patient care, completing clinical documentation, obtaining and/or reviewing separately obtained history, performing a medically appropriate examination, counseling and educating the pat ient/family/caregiver, ordering medications, tests, or procedures, independently interpreting results (not separately reported), and communicating results to the patient/family/caregiver. Electronically Signed: Brannon Sainz MD February 28, 2024 11:26 AM documented in this encounterSelect [facility] [place] History of Present illness Narrative* Renae Everett RN - 02/19/2024 3:08 PM EDT Patient identified by name and date of . Jaya Hopson is here for a Depo Provera injection. Patient brought medication. Date last injected: first injection - negative test. Depo-Provera, 150 mg, administered IM left deltoid, Lot # [id number], expiration date 08/26. Depo-Provera was given without incident. Date of last menses: No LMP recorded (lmp unknown). Patient has had an injection. Medication verified by dispensing pharmacist Patient instructed to return to clinic on 12 weeks. [email or web address] Provider Daniel Olivo CNM was present in office at time of injection. Renae Everett RN * Daniel Olivo APRN.CNM - 02/19/2024 9:52 AM EDT AJ is a 28 year old No obstetric history on file. who presents for an annual gynecologic exam without complaints. History of gastric bypass surgery and has lost over 100 lbs. Menses: no menses - Depo injection Contraception: Depo Provera HPV vaccine: Yes Last Pap: 08/17/2023 normal HPV: N/A History of abnormal pap: No Last mammogram: never Sexually active: No - has never been History of fibroids: No History of ovarian cyst: No History of endometriosis: No History of having irregular periods/2-3 x month- 2021 Started on Depo provera injections and no current cycles OB History No obstetric history on file. 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 LMP: LMP Unknown, Injection Age at Menarche: Age at First : Age at Menopause: 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 Comments: Sexual Activity: Not Currently; No partner data on record Contraception: No contraception data on record PAST MEDICAL HISTORY Diagnosis Date Asthma Brain lesion Chiari malformation type I (HCC) Migraines Thrombocytopenia (HCC) PAST SURGICAL HISTORY Procedure Laterality Date DENTAL SURGERY HX 2012 wisdom teeth removed GASTRIC BYPASS HX 11/21/2022 HAND SURGERY HX Left 2004 broken thumb repair TONSILLECTOMY AND ADENOIDECTOMY HX age 5 FAMILY HISTORY Problem Relation Age of Onset Diabetes Mother Hypertension Mother Heart Attack Mother Diabetes Father Cancer Father Prostate Cancer Father Stroke Father Diabetes Sister other (mirgaine) Sister Cancer Maternal Grandfather Lung Cancer Maternal Grandfather Cancer Paternal Grandfather Colon Cancer Paternal Grandfather SOCIAL HISTORY Social History Tobacco Use Smoking status: Never Smokeless tobacco: Never Vaping Use Vaping Use: Never used Substance Use Topics Alcohol use: No Drug use: No REVIEW OF SYSTEMS Abdomen: No abdominal pain, nausea, vomiting, diarrhea, or constipation. No bloating, early satiety, indigestion, or increased flatulence. Bladder: No dysuria, gross hematuria, urinary frequency, urinary urgency, or incontinence. Breast: No breast lumps, nipple d/c, overlying skin changes, redness or skin retraction. Allergies and current medication updated:Yes EXAM: BP 120/76 Ht 5' 5 (1.65m) Wt 181 lb (82.1kg) BMI 30.12 kg/(m^2). GENERAL: pleasant, female in no apparent distress HEENT: Normocephalic and atraumatic NECK: Supple and full range of motion DERMATOLOGY: Normal and without lesions BREAST: soft, non-tender, symmetric, no dominant mass, normal nipple-areolar complex, no lymphadenopathy, no nipple discharge, and fibrocystic changes CHEST: Normal inspiratory effort ABDOMEN: soft, non-tender, and no masses PELVIC: external genitalia normal, normal Bartholin's glands, urethra, Carrizozo's glands, no vulvar lesions, no cervical lesions, good vaginal support, physiologic discharge present, normal appearing perineal body and perianal region Exam was very difficult to complete- very painful for patient/ was able to use child size speculum but patient remains painful. Perineal muscles hyper flexed- vaginismus BIMANUAL: deferred- unable to complete due to pain RECTOVAGINAL: deferred. NEURO: alert and oriented x3,exam grossly non-focal EXTREMITIES: normal ASSESSMENT/PLAN: 1) Health maintenance: Pap/HPV up to date. Vaginismus- Discussed with patient and offered pelvic floor therapy/ possible dilator therapy. Needed to use child size speculum. Patient unable to insert tampons due to pain. Denies any history of sexual trauma or abuse. 2) Contraception: Depo Provera.- Used for cycle regulation/ not contraception 3) STD screening: Declined STD check. 4) Follow up one year or sooner as needed Daniel Olivo APRN.CNM documented in this encounterSelect [facility] [place] NoteHNO ID: [id number] Author: KRISTIE ROSENTHAL, JEFF Service: ? Author Type: Physical Therapist Type: Progress Notes Filed: 02/18/2024 08:30 Note Text: Episode Visit Count: 4 Therapist That Will Accept/Oversee The Plan Of Care: Wilian Rosenthal Start of Care Date: 01/29/24 Onset Date: 12/31/22 Patient Identified by Name and Date of : Yes REHABILITATION AND SPORTS THERAPY PHYSICAL THERAPY TREATMENT NOTE ASSESSMENT: Jaya Hopson tolerated the session with no issues. She demonstrated improvements in scap stabilization after practice with seated scap set. The patient will continue to benefit from ongoing skilled physical therapy to progress toward set goals. PLAN FOR NEXT VISIT: progress scap and cervical stabilization. SUBJECTIVE: FUENTES mostly gone. Reports nearly pasisng out in shower. Has had episodes with passing out in past. Has had halter monitor test in past with no issues found. Has had issues with rapid HR with change in position. Has had tilt table test in past as well. Pain: Pain Pain Level: 3 Pain Location: Neck Post Treatment Pain Post Treatment Pain Level: Better OBJECTIVE MEASURES WITH LEVEL OF FUNCTION: TREATMENT: Therapeutic Exercise: 1: *supine head deweight 5 sec 5x 2: *prone chin tuck 5 sec 5x 3: *seated scap set with ER - W orange band 10x 4: attempted prone sh ext - unable to perform without Utrap over use. Skilled Intervention: Patient was educated in proper exercise technique and purpose for exercises. Reviewed and educated patient on additions/changes for home exercise program as above (*). Skilled judgment was used in selection of appropriate interventions. Provided written instruction for home exercise program to facilitate proper performance and compliance. Correct performance of therapeutic exercises was facilitated with verbal, visual, and tactile cuing. Manual Therapy: 1: sub occ release 2 min 2: STM/DTM to cervical musculature 3: DTM/STM with trigger point release to R Utrap, levtor scap, SCM and scalenes, patient supine. Skilled Intervention: Manual skills to improve joint mobility, ROM, and decrease pain. Utilized anatomy knowledge of the therapist, and assessment of patient's response to intervention. Billing Therapeutic Exercise Treatment Minutes: 25 Manual TherapyTreatment Minutes: 20 Skilled Treatment Time Minutes (timed and untimed codes): 45 Total Session Time (minutes): 45 Session Start Time : 0710 Session Stop Time : 0755 Kristie Rosenthal [facility]06-18-2024 History of Present illness Narrative* Kristie Rosenthal, PT - 02/18/2024 8:28 AM EDT Episode Visit Count: 4 Therapist That Will Accept/Oversee The Plan Of Care: Wilian Rosenthal Start of Care Date: 01/29/24 Onset Date: 12/31/22 Patient Identified by Name and Date of : Yes REHABILITATION AND SPORTS THERAPY PHYSICAL THERAPY TREATMENT NOTE ASSESSMENT: Jaya Hopson tolerated the session with no issues. She demonstrated improvements in scap stabilization after practice with seated scap set. The patient will continue to benefit from ongoing skilled physical therapy to progress toward set goals. PLAN FOR NEXT VISIT: progress scap and cervical stabilization. SUBJECTIVE: FUENTES mostly gone. Reports nearly pasisng out in shower. Has had episodes with passing outin past. Has had halter monitor test in past with no issues found. Has had issues with rapid HR with change in position. Has had tilt table test in past as well. Pain: Pain Pain Level: 3 Pain Location: Neck Post Treatment Pain Post Treatment Pain Level: Better OBJECTIVE MEASURES WITH LEVEL OF FUNCTION: TREATMENT: Therapeutic Exercise: 1: *supine head deweight 5 sec 5x 2: *prone chin tuck 5 sec 5x 3: *seated scap set with ER - W orange band 10x 4: attempted prone sh ext - unable to perform without Utrap over use. Skilled Intervention: Patient was educated in proper exercise technique and purpose for exercises. Reviewed and educated patient on additions/changes for home exercise program as above (*). Skilled judgment was used in selection of appropriate interventions. Provided written instruction for home exercise program to facilitate proper performance and compliance. Correct performance of therapeutic exercises was facilitated with verbal, visual, and tactile cuing. Manual Therapy: 1: sub occ release 2 min 2: STM/DTM to cervical musculature 3: DTM/STM with trigger point release to R Utrap, levtor scap, SCM and scalenes, patient supine. Skilled Intervention: Manual skills to improve joint mobility, ROM, and decrease pain. Utilized anatomy knowledge of the therapist, and assessment of patient's response to intervention. Billing Therapeutic Exercise Treatment Minutes: 25 Manual TherapyTreatment Minutes: 20 Skilled Treatment Time Minutes (timed and untimed codes): 45 Total Session Time (minutes): 45 Session Start Time : 0710 Session Stop Time : 0755 Kristie Rosenthal PT * Kristie Rosenthal PT - 02/18/2024 7:52 AM EDT Program_ID:[id number] Access Code: [email or web address] URL: [email or web address] Date: 02-18-2024 Prepared By: Kristie Rosenthal Program Notes Exercises - Supine Head Nod with Deep Neck Flexor Activation - 1-2 x daily - 5-6 x weekly - 2-3 sets - 5 reps - Prone Cervical Retraction - 1-2 x daily - 5-6 x weekly - 2-3 sets - 5 reps - Seated Shoulder External Rotation - 1-2 x daily - 5-6 x weekly - 2-3 sets - 10 reps documented in [facility] encounter[facility] [place] NoteHNO ID: [id number] Author: KRISTIE ROSENTHAL, PT Service: ? Author Type: Physical Therapist Type: Progress Notes Filed: 02/14/2024 08:00 Note Text: Episode Visit Count: 3 Therapist That Will Accept/Oversee The Plan Of Care: Wilian Rosenthal Start of Care Date: 01/29/24 Onset Date: 12/31/22 Patient Identified by Name and Date of : Yes REHABILITATION AND SPORTS THERAPY PHYSICAL THERAPY TREATMENT NOTE ASSESSMENT: Jaya Hopson tolerated the session with increased symptoms. She demonstrated difficulty with increased headache and significant soft tissue restriction to right cervical and scapular musculature. The patient will continue to benefit from ongoing skilled physical therapy to progress toward set goals. PLAN FOR NEXT VISIT: address cervical and R sh STR, review cervical stabilization and add scap stabilization. SUBJECTIVE: reports migraine since Saturday. Starting at neck and up into head. Pain: Pain Pain Level: 4 Pain Location: Neck Post Treatment Pain Post Treatment Pain Level: No Change OBJECTIVE MEASURES WITH LEVEL OF FUNCTION: Spine Observations R Cervical Spine Palpation Tenderness: Sternocleidomastoid, Upper trapezius, Levator scapulae, Scalenes, Suboccipitals (medial scap border) Cervical Spine ROM Additional AROM: (slight restriction to R shoulder IR vs L) UE and Cervical Strength R UE Strength: grossly 4-4+/5 Special Tests - Cervical Cervical Special Tests: Alar Ligamentous Test, Transverse Ligament Test, Vertebral Artery Test Alar Ligamentous Test: Right Negative, Left Negative Transverse Ligament Test: Negative Vertebral Artery Test: Negative TREATMENT: Therapeutic Exercise: 1: supine and seated chin tuck 2: *seated neck stretches with towel to anchor shoulder for UT, LS, scalene 15 sec hold 3x Skilled Intervention: Patient was educated in proper exercise technique and purpose for exercises. Reviewed and educated patient on additions/changes for home exercise program as above (*). Skilled judgment was used in selection of appropriate interventions. Provided written instruction for home exercise program to facilitate proper performance and compliance. Correct performance of therapeutic exercises was facilitated with verbal, visual, and tactile cuing. Manual Therapy: 1: sub occ release 2 min 2: STM/DTM to cervical musculature 3: DTM/STM with trigger point release to R Utrap, levtor scap, SCM and scalenes, patient supine, sidelying and seated 4: R scap AAROM/stretching Skilled Intervention: Manual skills to improve joint mobility, ROM, and decrease pain. Utilized anatomy knowledge of the therapist, and assessment of patient's response to intervention. Billing Therapeutic Exercise Treatment Minutes: 10 Manual TherapyTreatment Minutes: 30 Skilled Treatment Time Minutes (timed and untimed codes): 40 Total Session Time (minutes): 40 Session Start Time : 0710 Session Stop Time : 0750 Kristie Rosenthal [facility]06-14-2024 History of Present illness Narrative* Kristie Rosenthal, PT - 02/14/2024 7:58 AM EDT Episode Visit Count: 3 Therapist That Will Accept/Oversee The Plan Of Care: Wilian Rosenthal Start of Care Date: 01/29/24 Onset Date: 12/31/22 Patient Identified by Name and Date of : Yes REHABILITATION AND SPORTS THERAPY PHYSICAL THERAPY TREATMENT NOTE ASSESSMENT: Jaya Hopson tolerated the session with increased symptoms. She demonstrated difficulty with increased headache and significant soft tissue restriction to right cervical and scapularmusculature. The patient will continue to benefit from ongoing skilled physical therapy to progresstoward set goals. PLAN FOR NEXT VISIT: address cervical and R sh STR, review cervical stabilization and add scap stabilization. SUBJECTIVE: reports migraine since Saturday. Starting at neck and up into head. Pain: Pain Pain Level: 4 Pain Location: Neck Post Treatment Pain Post Treatment Pain Level: No Change OBJECTIVE MEASURES WITH LEVEL OF FUNCTION: Spine Observations R Cervical Spine Palpation Tenderness: Sternocleidomastoid, Upper trapezius, Levator scapulae, Scalenes, Suboccipitals (medial scap border) Cervical Spine ROM Additional AROM: (slight restriction to R shoulder IR vs L) UE and Cervical Strength R UE Strength: grossly 4-4+/5 Special Tests - Cervical Cervical Special Tests: Alar Ligamentous Test, Transverse Ligament Test, Vertebral Artery Test Alar Ligamentous Test: Right Negative, Left Negative Transverse Ligament Test: Negative Vertebral Artery Test: Negative TREATMENT: Therapeutic Exercise: 1: supine and seated chin tuck 2: *seated neck stretches with towel to anchor shoulder for UT, LS, scalene 15 sec hold 3x Skilled Intervention: Patient was educated in proper exercise technique and purpose for exercises. Reviewed and educated patient on additions/changes for home exercise program as above (*). Skilled judgment was used in selection of appropriate interventions. Provided written instruction for home exercise program to facilitate proper performance and compliance. Correct performance of therapeutic exercises was facilitated with verbal, visual, and tactile cuing. Manual Therapy: 1: sub occ release 2 min 2: STM/DTM to cervical musculature 3: DTM/STM with trigger point release to R Utrap, levtor scap, SCM and scalenes, patient supine, sidelying and seated 4: R scap AAROM/stretching Skilled Intervention: Manual skills to improve joint mobility, ROM, and decrease pain. Utilized anatomy knowledge of the therapist, and assessment of patient's response to intervention. Billing Therapeutic Exercise Treatment Minutes: 10 Manual TherapyTreatment Minutes: 30 Skilled Treatment Time Minutes (timed and untimed codes): 40 Total Session Time (minutes): 40 Session Start Time : 709 Session Stop Time : 075 Kristie Rosenthal PT documented in this encounterSelect [facility] [place] NoteHNO ID: [id number] Author: KRISTIE ROSENTHAL PT Service: ? Author Type: Physical Therapist Type: Progress Notes Filed: 02/07/2024 15:46 Note Text: Episode Visit Count: 2 Therapist That Will Accept/Oversee The Plan Of Care: Wilian Rosenthal Start of Care Date: 01/29/24 Onset Date: 12/31/22 Patient Identified by Name and Date of : Yes REHABILITATION AND SPORTS THERAPY PHYSICAL THERAPY TREATMENT NOTE ASSESSMENT: Jaya Hopson tolerated the session with increased soreness. She demonstrated improvements in postural awareness. The patient will continue to benefit from ongoing skilled physical therapy to progress toward set goals. PLAN FOR NEXT VISIT: progress cervical stabilization ex and address STR SUBJECTIVE: notes increased awareness of posture. Using neck support at night. Notes FUENTES occur with neck fatigue. Requested better chair for work. 1 FUENTES since previous session Pain: Pain Pain Level: 4 Pain Location: Neck Description: Sore Frequency: Continuous Post Treatment Pain Post Treatment Pain Level: Worse (sore) OBJECTIVE MEASURES WITH LEVEL OF FUNCTION: TREATMENT: Therapeutic Exercise: 1: supine and seated chin tuck 2: *supine head deweight 3 sec 5x 3: *supine cervical isometrics 5 sec hold 5x for rotation, sidebend 4: supine horz abd 10x pink band Skilled Intervention: Patient was educated in proper exercise technique and purpose for exercises. Reviewed and educated patient on additions/changes for home exercise program as above (*). Skilled judgment was used in selection of appropriate interventions. Provided written instruction for home exercise program to facilitate proper performance and compliance. Correct performance of therapeutic exercises was facilitated with verbal, visual, and tactile cuing. Manual Therapy: 1: sub occ release 2 min 2: STM/DTM to cervical musculature Skilled Intervention: Manual skills to improve joint mobility, ROM, and decrease pain. Utilized anatomy knowledge of the therapist, and assessment of patient's response to intervention. Billing Therapeutic Exercise Treatment Minutes: 20 Manual TherapyTreatment Minutes: 26 Skilled Treatment Time Minutes (timed and untimed codes): 46 Total Session Time (minutes): 46 Session Start Time : 1418 Session Stop Time : 1504 Krist[facility] Ros[facility]06-07-2024 History of Present illness Narrative* Kristie Rosenthal, PT - 02/07/2024 3:45 PM EDT Episode Visit Count: 2 Therapist That Will Accept/Oversee The Plan Of Care: Wilian Rosenthal Start of Care Date: 01/29/24 Onset Date: 12/31/22 Patient Identified by Name and Date of : Yes REHABILITATION AND SPORTS THERAPY PHYSICAL THERAPY TREATMENT NOTE ASSESSMENT: Jaya Hopson tolerated the session with increased soreness. She demonstrated improvements in postural awareness. The patient will continue to benefit from ongoing skilled physical therapy to progress toward set goals. PLAN FOR NEXT VISIT: progress cervical stabilization ex and address STR SUBJECTIVE: notes increased awareness of posture. Using neck support at night. Notes FUENTES occur with neck fatigue. Requested better chair for work. 1 FUENTES since previous session Pain: Pain Pain Level: 4 Pain Location: Neck Description: Sore Frequency: Continuous Post Treatment Pain Post Treatment Pain Level: Worse (sore) OBJECTIVE MEASURES WITH LEVEL OF FUNCTION: TREATMENT: Therapeutic Exercise: 1: supine and seated chin tuck 2: *supine head deweight 3 sec 5x 3: *supine cervical isometrics 5 sec hold 5x for rotation, sidebend 4: supine horz abd 10x pink band Skilled Intervention: Patient was educated in proper exercise technique and purpose for exercises. Reviewed and educated patient on additions/changes for home exercise program as above (*). Skilled judgment was used in selection of appropriate interventions. Provided written instruction for home exercise program to facilitate proper performance and compliance. Correct performance of therapeutic exercises was facilitated with verbal, visual, and tactile cuing. Manual Therapy: 1: sub occ release 2 min 2: STM/DTM to cervical musculature Skilled Intervention: Manual skills to improve joint mobility, ROM, and decrease pain. Utilized anatomy knowledge of the therapist, and assessment of patient's response to intervention. Billing Therapeutic Exercise Treatment Minutes: 20 Manual TherapyTreatment Minutes: 26 Skilled Treatment Time Minutes (timed and untimed codes): 46 Total Session Time (minutes): 46 Session Start Time : 1418 Session Stop Time : 1504 Kristie Rosenthal PT * Kristie Rosenthal PT - 02/07/2024 2:48 PM EDT Program_ID:[id number] Access Code: [email or web address] URL: [email or web address] Date: 02-07-2024 Prepared By: Kristie Rosenthal Program Notes Exercises - Supine Head Nod with Deep Neck Flexor Activation - 1-2 x daily - 5-6 x weekly - 2-3 sets - 10 reps - Hooklying Isometric Upper Neck Rotation - 1-2 x daily - 5-6 x weekly - 2-3 sets - 10 reps - Supine Isometric Neck Sidebend - 1-2 x daily - 5-6 x weekly - 2-3 sets - 10 reps - Supine Shoulder Horizontal Abduction with Resistance - 1-2 x daily - 5-6 x weekly - 2-3 sets - 10 reps documented in this encounterSelect [facility] [place] Telephone encounter Note * Telephone Encounter - Miguelina Pace - 02/05/2024 3:28 PM EDT Called patient back and rescheduled with Dr. Sainz. [facility] [place] Work Phone: [phone]) 641-723106-05-2024 Miscellaneous Notes* Telephone Encounter - Miguelina Pace - 02/05/2024 3:28 PM EDT Called patient back and rescheduled with Dr. Sainz. * Telephone Encounter - Miguelina Pace - 02/05/2024 3:23 PM EDT Patient called and scheduled with Dr. Parra. * Telephone Encounter - Madeline Mcfadden LPN - 02/05/2024 2:46 PM EDT Last (and only) OV with Dr. Camacho was 07/03/2019- please schedule with Dr. Sainz. Madeline Mcfadden LPN * Telephone Encounter - Lucie Hernandez - 02/05/2024 2:25 PM EDT Patient is being referred to Hematology. DX: Leukopenia and Thrombocytopenia Insurance: [employer] Referred by: Cem Boggs- DO Patient saw Dr. Camacho 3 years ago Please advise documented in this encounterSelect [facility] [place]06-[place]-[facility] Telephone encounter Note * Telephone Encounter - Miguelina Pace - 02/05/2024 3:23 PM EDT Patient called and scheduled with Dr. Parra. [facility] [place]06-05-2024 Telephone encounter Note* Telephone Encounter - Kristen Ireland MA - 02/05/2024 3:12 PM EDT Patient is informed Kristen Ireland MA [facility] [place]06-05-2024 Miscellaneous Notes* Telephone Encounter - Kristen Ireland MA - 02/05/2024 3:12 PM EDT Patient is informed Kristen Ireland MA * Telephone Encounter - Kristen Ireland MA - 02/05/2024 11:47 AM EDT Left a message for patient to call back Kristen Ireland MA * Telephone Encounter - Cem Boggs DO - 02/05/2024 9:15 AM EDT Please call pt - blood work shows that her white blood cells and platelets are still slightly low. I would like for her to see a blood specialist. I will refer her to Dr. Parra in [place] - attached Cem Boggs DO documented in this encounterSelect [facility] [place]06-[place]-[facility]24 Telephone encounter Note * Telephone Encounter - Madeline Mcfadden LPN - 02/05/2024 2:46 PM EDT Last (and only) OV with Dr. Camacho was 07/03/2019- please schedule with Dr. Sainz. Madeline Mcfadden LPN [facility] [place]06-05-2024 Telephone encounter Note* Telephone Encounter - Lucie Hernandez - 02/05/2024 2:25 PM EDT Patient is being referred to Hematology. DX: Leukopenia and Thrombocytopenia [facility] Referred by: Cem Castro DO Patient saw Dr. Camacho 3 years ago Please advise [facility] [place]06-05-2024 Telephone encounter Note* Telephone Encounter - Kristen Ireland MA - 02/05/2024 11:47 AM EDT Left a message for patient to call back Kristen Ireland MA [facility] [place]06-05-2024 Telephone encounter Note* Telephone Encounter - Cem Boggs DO - 02/05/2024 9:15 AM EDT Please call pt - blood work shows that her white blood cells and platelets are still slightly low. I would like for her to see a blood specialist. I will refer her to Dr. Parra in [place] - attached Cem Boggs DO [facility] [place]06-05-2024 Instructions* Patient Instructions* Cem Boggs DO - 02/05/2024 8:26 AM EDT For your medication, please call Yomi Sosa RN [facility] [place] [facility] P: , F: For questions relating to this submission, please contact [facility] [place] [facility] at [phone] documented in this encounterSelect Medical [facility] [place]06-[facility] History of Present illness Narrative* Cem Boggs DO - 02/05/2024 8:23 AM EDT SUBJECTIVE: 28 year old female here to establish. I have fully reviewed the past medical, surgical, social and family history and updated the Histories section of [facility]. She has a history of migraine headaches (for which she sees neurology), leukopenia, mild intermittent asthma, gastric bypass surgery (follows up with Sadiq), insomnia, seasonal allergies, depression, anxiety, and insomnia She sees a promotions manager for her women's health She takes melatonin as needed for sleep, benadryl or loratadine for allergy She has some depression and anxiety, sees a therapist Was on medicaiton, no longer takes after her surgery She does not get sick very often She does not use tobacco or nicotine She tries to eat a healthy diet She walks 20 to 30 minutes per day, and 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 ALLERGIES Allergen Reactions Fluocinolone Anaphylaxis Amoxicillin Hives Current Outpatient Medications Medication Sig Dispense Refill mv-min/iron/folic/calcium/vitK (WOMEN'S MULTIVITAMIN ORAL) Take 2 tablets by mouth once daily. Magnesium 250 mg tab Take 250 mg by mouth once daily. Biotin 10,000 mcg cap Take 1 capsule by mouth once daily. cholecalciferol (VITAMIN D-3) 50 mcg (2,000 unit) tablet Take 2,000 Units by mouth once daily. calcium carbonate (CALCIUM 600 ORAL) Take 1 tablet by mouth three times a day. thiamine (VITAMIN B-1) 50 mg tablet Take 50 mg by mouth once daily. cyanocobalamin (VITAMIN B-12) 500 mcg tablet Take 1 tablet by mouth one time a week. ubrogepant (UBRELVY) 100 mg tablet Take 1/2 to1 tablet by mouth as needed at onset of migraine, repeat in 2 hours if needed. 10 tablet 11 albuterol HFA (PROVENTIL HFA, VENTOLIN HFA) 90 mcg/actuation inhaler Inhale as instructed. galcanezumab-gnlm (EMGALITY PEN) 120 mg/mL pen Inject 2 pens (240 mg) under the skin 1 time only for initial loading dose. Refrigerate. Do not shake. 2 Each 0 galcanezumab-gnlm (EMGALITY PEN) 120 mg/mL pen Inject 1 mL subcutaneously once every month. Do not shake. 1 Each 11 No current facility-administered medications for this visit. 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, Not Intractable Imbalance Posture Abnormality Dizziness Social History Tobacco Use Smoking status: Never Smokeless tobacco: Never Vaping Use Vaping Use: Never used Substance Use Topics Alcohol use: No Drug use: No Family History Problem Relation Age of Onset Diabetes Mother Hypertension Mother Heart Attack Mother Diabetes Father Cancer Father Prostate Cancer Father Stroke Father Diabetes Sister other (mirgaine) Sister Cancer Maternal Grandfather Lung Cancer Maternal Grandfather Cancer Paternal Grandfather Colon Cancer Paternal Grandfather Reviewed past medical history, family history and surgeries. All medications and supplements were reviewed with the patient. REVIEW OF SYSTEMS GENERAL: No malaise or fevers HEENT: Negative for frequent or significant headaches, No changes in hearing or vision, no nose bleeds or other nasal problems NECK: Negative for lumps, goiter, pain and significant neck swelling RESPIRATORY: History of asthma, negative for cough, hemoptysis, wheezing, COPD, dyspnea or shortness of breath CARDIOVASCULAR: Negative for chest pain, leg swelling, hypertension, CHF or palpitations GI: History of gastric bypass surgery, no nausea, vomiting, or diarrhea MUSCULOSKELETAL: Negative for joint pain or swelling, back pain or muscle pain SKIN: Negative for lesions, rash, and itching PSYCH:Positive for anxiety, insomnia, depression HEMATOLOGY/LYMPHOLOGY: Negative for prolonged bleeding, bruising easily or swollen nodes ENDOCRINE: Negative for cold or heat intolerance, polyuria, polydipsia and goiter NEURO: Positive history of headaches, no syncope, paralysis, seizures or tremors PHYSICAL EXAMINATION: BP 116/76 Pulse 60 Temp 36.7 C (98.1 F) Resp 16 Ht 164.5 cm (5' 4.75) Wt 81.6 kg (180 lb) LMP 07/03/2019 (Exact Date) SpO2 100% BMI 30.19 kg/m General appearance: Well appearing, alert, in no acute distress, well-hydrated, well nourished. Skin: Skin color, texture, turgor normal, no suspicious rashes or lesions Head: Normocephalic, no masses, lesions, tenderness or abnormalities Eyes: Anicteric sclera. Pupils are equally round and reactive to light. Extraocular movements are intact. Ears: External ears normal, canals clear Nose/Sinuses: Nares normal, septum midline, mucosa normal, no drainage or sinus tenderness Oropharynx: Lips, mucosa, and tongue normal, teeth and gums normal, oropharynx normal Neck: Supple, no adenopathy; thyroid symmetric, normal size, no bruits Back: Normal exam Lungs: Lungs clear to auscultation. No wheezing, rhonchi, rales. Heart: RRR without murmur, gallop, or rubs. No ectopy Abdomen: Normal abdominal exam, Abdomen soft, non-tender. Bowel sounds normal. No masses, organomegaly Extremities: No deformities, edema, skin discoloration, clubbing or cyanosis. Good capillary refill. Musculoskeletal: No joint swelling, deformity, or tenderness Peripheral pulses: Normal Neuro: Gait normal. Reflexes normal and symmetric. Sensation grossly intact. ASSESSMENT/PLAN: 1. Well adult exam - ICD9: V70.0, ICD10: Z00.00 (primary diagnosis) - Counseled on healthy diet and regular exercise 2. Leukopenia, unspecified type - ICD9: 288.50, ICD10: D72.819 - COMPLETE BLOOD COUNT AND DIFFERENTIAL 3. Mild intermittent asthma, uncomplicated - ICD9: 493.90, ICD10: J45.20 Continue albuterol as needed 4. Obesity, Class I, BMI 30-34.9 - ICD9: 278.00, ICD10: E66.9 Continue lifestyle modifications Cem Boggs DO documented in [facility] [place] History of Present illness Narrative* Kristie Rosenthal, PT - 01/29/2024 6:34 PM EDTSummary: PT eval Episode Visit Count: 1 Therapist That Will Accept/Oversee The Plan Of Care: Wilian Rosenthal Start of Care Date: 01/29/24 Onset Date: 12/31/22 Patient Identified by Name and Date of : Yes REHABILITATION AND SPORTS THERAPY PHYSICAL THERAPY EVALUATION PLAN OF CARE: Assessment: Jaya Hopson presents with chief complaint of dizziness and imbalance that interferes with rising from a chair, standing, physical activities (exercise) . She presents with impairments in balance, posture, strength, and tissue tenderness. PROMIS (Patient-Reported Outcomes Measurement Information System) scores were reviewed and identified as within normal limits. Prognosis for therapy is Good due to: current objective clinical presentation . Patient with signs consistent with cervicogenic dizziness and vestibular hypofunction and poor posture and core strength. No indication for BPPV but will continue to monitor. She will benefit from skilled therapy services to meet the goals established for this plan of care as noted below. Goals for Episode of Care: created on 01/29/24 through 04/28/24 Patient will be able to correct postural deviations independently in order to allow for normal mechanics, to decrease current pain and prevent future recurrence. Patient will have negative positional testing for BPPV. Patient will demonstrate normal active cervical spine range of motion to restore posture and complete ADLS with trace report of dizziness/imbalance. Patient will be independent with home exercise program and progression. Patient will return to prior level of function with all activities of daily living with trace reports of dizziness. Patient will demonstrate the ability to complete VOR in static and dynamic positions with trace report of dizziness. Patient Goals: better balance and get more stable. Planned Interventions, Frequency, and Duration: Current Frequency: 1x/week Duration: 12 weeks Total Number of Visits Planned: 12 Planned Treatment Interventions: Therapeutic exercise (16445), Neuromuscular re- education (09887), Manual therapy (50155), Therapeutic activities (30338), Patient/Family/Caregiver Education PLAN FOR NEXT VISIT: address C-spine STR and strengthening deep neck flexors. Complete MMT to core and LE. VNG testing if indicated, pending symptoms. Patient demonstrates good understanding of plan of care and treatment. The above goals and plan of care were discussed and agreed upon by patient/family. SUBJECTIVE: reporting chronic migraines for which she is trying new medication. Had gastric bypass 10/2022 has lost over 120 pounds. REports dizziness and sense of iimbalnce with icreased sway.. Had tilit table test in 2020, + for inner ear trouble. Patient Goals: better balance and get more stable. 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 Home Environment Patient Lives With: Family Intake Information: Prescription present Previous Treatment: Physical Therapy Falls Interview: No positive findings with falls interview (fall on ice) Vestibular Symptoms present for: years Symptom onset: gradual Dizziness: Yes Description: woozy, off sensation, light headed Imbalance: Yes Imbalance triggered by: Walking in dark, Unstable surface Fall Assessment: No falls Nausea: no Motion Sickness: As a child, Current Headache: Yes Description: (throbbing around eyes) Frequency: Weekly (5x per month, may last up to a week) Neck Symptoms: Yes Description: (swensative to pressure) Jaw Symptoms: No Ear Symptoms: No Hearing Changes: No recent changes Tinnitus: (occasional) Sleeping Position: Side lying left > right Sleep Affected by Symptoms: pain awakens, pain keeps from falling asleep History of Syncope: Yes History of Migraine: Yes Reports: headaches, dizziness Pain: Pain Pain Level: 0 Post Treatment Pain Post Treatment Pain Level: No Change PROMIS Scales 01/27/2024 12/14/2020 Higher is Better Phys Func - Score 45 (within normal limits) 46 (within normal limits) Phys Func - Percentile 31 34 Self-Eff Symptom - Score 44 (Average) 41 (Average) Self-Eff Symptom - Percentile 27 18 T-scores: mean of general population = 50. 5 points is clinically meaningfully difference Percentiles provide an indication of how the patient's score ranks in relation to the general population. Higher percentile rankings indicate better function/quality of life. 50th percentile is the average of the general population and indicates half of respondents had a worse score. OBJECTIVE MEASURES WITH LEVEL OF FUNCTION: Posture / Alignment Posture: Forward head Spine Observations R Cervical Spine Palpation Tenderness: Suboccipitals, Upper trapezius L Cervical Spine Palpation Tenderness: Suboccipitals, Upper trapezius, Levator scapulae Oculomotor Testing Fixation Present Ocular ROM: WNL Spontaneous Nystagmus: No nystagmus Gaze Evoked Nystagmus: Not Present Smooth pursuit: Horizontal, Vertical and Diagonal all WNL Saccadic eye movements: Horizontal, vertical and oblique all WNL. Vertical: (difficulty focusing) Head Thrusts: Right positive Convergence (Distance): 7 inches VOR to slow head movements: Negative Cervical Spine ROM Cervical ROM : Limitation AROM, Upper Cervical PROM Cervical Protrusion AROM: Normal Cervical Retraction AROM: Moderate limitation, Increased pain Cervical Flexion AROM: Minimal limitation Cervical Extension AROM: Moderate limitation Cervical Side-Bend Right AROM: Normal Cervical Side-Bend Left AROM: Normal Cervical Rotation Right AROM: Normal Cervical Rotation Left AROM: Minimal limitation OA ([place]-occipital) Flexion PROM: WNL AA ([place]-axial) Rotation PROM: restricted to L Spine Joint Mobility Upper Cervical Rotation : Left restriction, Minimal loss Upper Cervical Flexion: Left more restricted than right, Increased dizziness, Minimal loss UE and Cervical Strength Strength Tested: Cervical Cervical Strength: 4-/5 Deep Neck Flexor Endurance: 2 sec LE Strength Trunk Strength: fair R Hip Flexion (L2): 4-/5 L Hip Flexion (L2): 4-/5 Mobility Rolling: Independent Supine To Sit: Independent Sit to Supine: Independent Sit To Stand: Independent Stand To Sit: Independent Bed To Chair: Independent CTSIB Eyes open, firm surface Trial 1 (sec): 30 Eyes open, firm surface Trial 1 (sway): WNL Eyes closed, firm surface Trial 1 (sec): 30 Eyes closed, firm surface Trial 1 (sway): Mild Eyes open, foam surface Trial 1 (sec): 30 Eyes open, foam surface Trial 1 (sway): WNL Eyes closed, foam surface Trial 1 (sec): 30 Eyes closed, foam surface Trial 1 (sway): Mild Education: Education Learning Preferences: Performance Barriers: None Learning/educational needs: Health promotion, Home exercise program, Plan of Care, Posture Education Provided: Yes, see treatment interventions for education provided Education Provided To: Patient Education Mode/Type: Performance Response to Education/Teach Back: Return Demonstration, Requires Review/Additional Education TREATMENT: PT Treatment Interventions: Therapeutic Exercise, Manual Therapy Evaluation Therapeutic Exercise: 1: *supine chicn tuck 5x 2: *attempted supine head deweight increased pain, unable to hold 3: *seated chin tuck 5x Skilled Intervention: Patient was educated in proper exercise technique and purpose for exercises. Reviewed and educated patient on additions/changes for home exercise program as above (*). Skilled judgment was used in selection of appropriate interventions. Correct performance of therapeutic exercises was facilitated with verbal, visual, and tactile cuing. Manual Therapy: 1: sub occ release 2 min 2: ME to facilitate increased L upper cervical rotation. Skilled Intervention: Manual skills to improve joint mobility, ROM, and decrease pain. Utilized anatomy knowledge of the therapist, and assessment of patient's response to intervention. Billing * Evaluation Low Complexity: 1 Unit Therapeutic Exercise Treatment Minutes: 10 Manual TherapyTreatment Minutes: 5 Skilled Treatment Time Minutes (timed and untimed codes): 49 Total Session Time (minutes): 49 Session Start Time : 1507 Session Stop Time : 1556 Kristie Rosenthal PT documented in this encounterSelect [facility] [place] Telephone encounter Note * Telephone Encounter - Yomi Sosa RN - 01/28/2024 12:07 PM EDT Images from the original note were not included. Ambulatory Pharmacy Prior Authorization Note Provider Intervention Required?: No- Pharmacy completed on your behalf. Rx Plan: [facility] Drug: Emgality 120MG/ML auto-injectors (migraine) Cover My Meds Stern: [id number] Determination: Denied PA Denied because: Step therapy requirement Prior Authorization/Case #: [id number] Prior Authorization Expiration: n/a Time to PA Submission in CMM: 15 min Time to PA Determination in CMM: Same day Additional Information: Denial letter scanned into chart for reference under scanned documents. Please review letter for further details. No further action by [facility] Delivery Pharm[facility] for now and existing order to be profiled. Yomi Sosa RN [facility] P: , F: For questions relating to this submission, please contact [facility] at [phone] [facility] [place] Work Phone: [phone]) 831-905805-28-2024 Miscellaneous Notes* Telephone Encounter - Yomi Sosa RN - 01/28/2024 12:07 PM EDT Images from the original note were not included. Ambulatory Pharmacy Prior Authorization Note Provider Intervention Required?: No- Pharmacy completed on your behalf. Rx Plan: [facility] Drug: Emgality 120MG/ML auto-injectors (migraine) Cover My Meds Stern: BUGKPWAB Determination: Denied PA Denied because: Step therapy requirement Prior Authorization/Case #: [id number] Prior Authorization Expiration: n/a Time to PA Submission in CMM: 15 min Time to PA Determination in CMM: Same day Additional Information: Denial letter scanned into chart for reference under scanned documents. Please review letter for further details. No further action by [facility] Delivery [facility] for now and existing order to be profiled. Yomi Sosa RN [facility] P: , F: For questions relating to this submission, please contact [facility] [place] [facility] at [phone] documented in this encounterSelect [facility] [place]-[facility]24 Instructions* Patient Instructions* Aspen Martinez APRN.CNP - 01/21/2024 11:10 AM EDT Please call [phone] to schedule PT. documented in this encounterSelect [facility] [place] History of Present illness Narrative* Aspen Martinez APRN.CNP - 01/21/2024 11:00 AM EDT Images from the original note were not included. Outpatient [facility] - Follow Up Visit Accompanied by: Mother Primary Problem List: 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, Not Intractable Chief Complaint: Follow up LV: 11/07/2023 w/ Alex Cummins CNP Impression and Plan from last visit: IMPRESSION: Jaya Hopson is a 28 year old year old female, with a history of thrombocytopenia, chiari malformation, asthma, gastric bypass, and migraine w/wo aura. Ubrelvy is an effective rescue medication for her. However, her migraines and associated sx have become more frequent and chronic and she is in need of ppx therapy. We will try Topamax. She has no h/o kidney stones or plans for . Patient verbalized understanding and agreed to treatment plan. Her neurological examination is essentially normal at this visit. PLAN: - start trial topamax qhs - start magnesium 500 qhs - cont ubrelvy prn - increase hydration Interval Headache History: Since the last visit, the patient states that her headaches have not changed. Started Topamax 25 mg- went to ED for severe migraine, increased to 50 mg - migraine came back. She stopped Topamax. Does not wish to continue. Takes magnesium every day. Ubrelvy is effective for rescue. Was virtually migraine free on Emgality about five years ago- menses stopped, out of an abundance of caution so was Emgality. Not a known side effect. Reports she was struggling with other health issues then. She would like to go back on Emgality. Feels she is still having imbalance issues- completed vestibular PT in the past, felt it helped. Feels like she is moving when she is standing still. Also c/o chronic neck tightness/pain. Preventative: none Abortive: Ubrelvy Medications effective? yes # of doses of abortive medications per month: 8 Headache 1 This is the current headache. Location: occipital (can radiate forward to retro-orbital R > L -- assocaited with neck pain ) Quality/Description: throbbing, aching and sharp Other symptoms: photophobia, phonophobia, dizziness and neck pain (can have sensory overload all the time. denies autonomic symptoms with headaches ) Worse with activity: yes Number of migraine headache days/month: 15 Migraine Severity: mild Number of NON-migraine headache days/month: 0 Total Number of headache days/month: 15 Number of headache free days/month: 15 Duration of headaches with treatment: Duration of attacks with treatment: lasts minutes to 1 hour then will stop --> does not pay much attention to these headaches Triggers: none Most common time of day for headache to begin: anytime Aura: flashing lights Days missed from work or school in the last month: 3 days Prior Therapies Duration of Use Dose Reason for Discontinuation Anti-Depressant and Antipsychotic Aripiprazole (Abilify) Duloxetine (Cymbalta) Nortriptyline (Pamelor, Aventyl) Sertraline (Zoloft) Antiemetics Prochlorperazine Anti-Migraine Dihydroergotamine (DHE-45, Migranal) Sumatriptan (Imitrex, Sumavel) Blood Pressure Nadolol (Corgard) MABs Galcanezumab (Emgality) menses discontinued? she doesn't remember, was very effective for her GEPANTS Ubrogepant (Ubrelvy) Sleep Aids Trazodone (Desyrel) Over the Counter Medications Acetaminophen/Aspirin/Caffeine (Excedrin, Goody s) Ibuprofen (Advil, Motrin) PAST MEDICAL HISTORY Diagnosis Date Asthma Brain lesion Chiari malformation type I (HCC) Migraines Thrombocytopenia (HCC) PAST SURGICAL HISTORY Procedure Laterality Date TONSILLECTOMY AND ADENOIDECTOMY HX age 5 ALLERGIES Allergen Reactions Fluocinolone Anaphylaxis Amoxicillin Hives Current Medications: ubrogepant (UBRELVY) 100 mg tablet Take 1/2 to1 tablet by mouth as needed at onset of migraine, repeat in 2 hours if needed. SUMAtriptan (IMITREX) 20 mg/actuation nasal spray Use 1 Lynx in the nose as needed. INHALE ONE(1) SPRAY INTO ONE(1) NOSTRIL AT ONSET OF HEADACHE. MAY REPEAT AFTER 2 HOURS. albuterol HFA (PROVENTIL HFA, VENTOLIN HFA) 90 mcg/actuation inhaler Inhale as instructed. galcanezumab-gnlm (EMGALITY PEN) 120 mg/mL pen Inject 2 pens (240 mg) under the skin 1 time only for initial loading dose. Refrigerate. Do not shake. galcanezumab-gnlm (EMGALITY PEN) 120 mg/mL pen Inject 1 mL subcutaneously once every month. Do not shake. topiramate (TOPAMAX) 25 mg tablet Take 1 tablet by mouth daily at bedtime for 7 days, THEN 2 tablets daily at bedtime for 7 days, THEN 3 tablets daily at bedtime. I have reviewed the Ed Status Assessment responses and discussed these with the patient: yes Aspen Martinez APRN.HIDE CURER HEADACHE SCORES: 08/28/2023 10/31/2023 01/14/2024 Headache Questions ER visits since last office visit: 0 0 0 Hospital stays since last office visit 0 0 0 Limited ADLs in the last month: 2 10 15 Days missed from work or school in the last month: 0 2 3 Days headache pain free in the last month: 25 10 23 Days per month with ALL of the following symptoms - decreased productivity, light sensitivity and nausea: 4 10 7 Initial improvement of headache after botox injection at last visit: Not applicable, I did not havea botox injection at my last visit Not applicable, I did not have a botox injection at my last visit Not applicable, I did not have a botox injection at my last visit PRN medication usage in the last month: 4 10 7 Patient impression of improvement since last visit: Minimally worse Much worse Minimally worse 08/28/2023 10/31/2023 01/14/2024 HIT-6 HIT-6 65 (Severe impact) 74 (Severe impact) 76 (Severe impact) 08/28/2023 10/31/2023 01/14/2024 MAYCOL - 2/7 SCORES MAYCOL-2 Score 1 6 3 MAYCOL-7 Score 17 8 08/28/2023 10/31/2023 01/14/2024 Migraine Specific QOL - Higher scores indicate better HRQL Role Function-Restrictive Transformed Score (range: 0-100) 45.71 2.86 22.86 Role Function-Preventive Transformed Score (range: 0-100) 75 10 35 Emotional Function Transformed Score (range: 0-100) 40 0 0 08/28/2023 10/31/2023 01/14/2024 PHQ-9 Score 5 8 10 MRI Head/Brain - Last 2 Impressions MRI BRAIN WO/W IVCON Exam End: 12/11/2023 8:58 AM (Final result) Impression: IMPRESSION: Stable examination. Chiari I malformation.... MRI BRAIN WO/W IVCON Exam End: 12/26/2020 9:49 AM (Final result) Impression: IMPRESSION: Stable findings of Chiari I malformation with similar degree of crowding at the foramen magnum. ... Labs to Review No New Health Issues: No New Family History: No Review of Systems: Review of system : unchanged from the previous visit (sleep patterns, mood, energy, appetite, stress, exercising). Physical Examination: BP 118/73 Pulse 61 Ht 165.1 cm (5' 5) Wt 83.4 kg (183 lb 13.8 oz) LMP 07/03/2019 (Exact Date) BMI 30.60 kg/m General: well appearing, in no acute distress, alert HEENT: Normocephalic/atraumatic. Skin: Color, texture, turgor normal. No rashes or lesions Musculoskeletal: No gross joint deformities. , Suboccipital tenderness: No. Neurological: Pain Behaviors: no pain behaviors observed Mental Status: Alert and oriented to person, place and time. Affect is normal and appropriate. Speech is spontaneous and fluent without dysarthria, normal in rate, volume and articulation, and clear,coherent, and relevant. Short and mcc memory, cognition and general fund of knowledge are good. Attention span and concentration are excellent. Cranial Nerves: II-Visual yee are full. III, IV, - extraocular muscles intact bilaterally, PERRL, nystagmus absent, V-normal facial sensation to light touch. VII-face is symmetric without evidence of weakness. VIII-hearing intact. IX, X-palate elevates symmetrically. XI-SCM 5/5 with shoulder shrug. XII-tongue protrudes midline with normal movements. No atrophy or fasciculations of the tongue. Motor: Normal muscle tone and bulk. No evidence of atrophy or fasciculations. Strength is normal, 5/5. Sensation: normal light touch in the upper and lower extremities. Cerebellar: No ataxia. Tremor: absent. Gait examination is normal. IMPRESSION: Migraine with aura and without status migrainosus, not intractable (primary encounter diagnosis) Imbalance Cervicalgia Jaya Hopson is a 28 year old year old female, with a history of thrombocytopenia, chiari malformation, asthma, gastric bypass, and migraine w/wo aura who presents for follow up. Her neurological examination is essentially normal at this visit. She did not tolerate Topamax, even at low doses. Ubrelvy is effective for rescue. Was on Emgality in the past and was virtually migraine free. Was stopped because menses stopped andunsure if it was related to Emgality use- reports hx of other health problems around that time including morbid obesity. She would like to retrial Emgality for prevention. C/o imbalance, swaying when standing still and neck tightness/pain. Vestibular PT helped with this in the past. PLAN: Emgality for prevention- if menses stops again will d/c Ubrelvy for rescue Vestibular PT Future Considerations: Ajovy, Aimovig, Botox, Qulipta Prior Authorizations: We will request precertification for Calcitonin Gene Related Peptide Monoclonal Antibody, Galcanezumab. This patient meets ICHD-3 criteria for treatment with CGRP MAB, She has Chronic Migraine Headache (CM), Chronic Migraine without aura, without mention of intractable migraine without mention of status migrainosus which occurs at least 15 days per month for at least 4 hoursper day. The FDA has approved CGRP MAB for prevention of migraine. Specifically, the patient has 15migraines per month, lasting 4 or more hours/d associated with photophobia, phonophobia, nausea forthree or more months. Medication overuse headache has been ruled out. Patient is not currently taking a Gepant for acute treatment of her migraine. The following preventative medications have been tried for 3 or more months without benefit or discontinued due and/or side effects. Anti-Depressant and Antipsychotic Aripiprazole (Abilify) Duloxetine (Cymbalta) Nortriptyline (Pamelor, Aventyl) Sertraline (Zoloft) Blood Pressure Nadolol (Corgard) MABs Galcanezumab (Emgality) menses discontinued? she doesn't remember, was very effective for her The following abortive medications have been tried but require high frequency use which can lead toMedication Overuse Headache: Anti-Migraine Dihydroergotamine (DHE-45, Migranal) Sumatriptan (Imitrex, Sumavel) GEPANTS Ubrogepant (Ubrelvy) Over the Counter Medications Acetaminophen/Aspirin/Caffeine (Excedrin, Goody s) Ibuprofen (Advil, Motrin) HEADACHE MANAGEMENT: (You are the primary guardian of your health and headache. Keep track of all medications: This includes the reason for use, side effects and benefits.) MEDICATION TREATMENT: Medications to Start Taking galcanezumab-gnlm (EMGALITY PEN) 120 mg/mL pen Inject 2 pens (240 mg) under the skin 1 time only for initial loading dose. Refrigerate. Do not shake. galcanezumab-gnlm (EMGALITY PEN) 120 mg/mL pen Inject 1 mL subcutaneously once every month. Do not shake. Headache education was done. Discussed lifestyle modification including increased oral hydration, decreased caffeine, exercise and stress management. Discussed treatment options including preventive and acute medications, natural supplements, and infusion therapy. Discussed medication overuse headache and to limit use of acute treatments to no more than 2 days/week or 10 days/month. Discussed medication side effects, adverse reactions and drug interactions. RESEARCH: None at this time Follow-up: 3 months, PRN Level of service: Est level 4 (30-39 min). Time spent 30 min on the day of service, which included preparing to see the patient, [id number] patient care, completing clinical documentation, obtaining and/or reviewing separately obtained history, performing a medically appropriate examination, counseling and educating the patient/family/caregiver, ordering medications, tests, or procedures, and care coordination (not separately reported). Aspen Martinez APRN.HIDE CURER Headache Section [facility] [place] January 21, 2024 documented in this encounterSelect [facility], [place]04-10-2024 History of Present illness Narrative* Ana Leone RT(R) - 12/11/2023 8:15 AM EDT Radiology Service Progress Note DATE OF SERVICE: December 11, 2023 TIME: 8:29 AM PATIENT IDENTITY VERIFICATION COMPLETED USING TWO (2) STANDARD IDENTIFIERS: Name and Date of confirmed by patient verbally. FALL SCREENING: Has the patient had 2 falls in the last year or 1 fall with injury or currently using an Ambulatory Assistive Device (Walker, Cane, Wheelchair, Crutches, etc.)? No PATIENT GENDER DATA: Female. status: : No status: NO. PATIENT RELEVANT IMPLANT DATA REVIEWED: Yes PATIENT PRESENTS WITH AN IMPLANTABLE OR ATTACHED RN OCCUPATIONAL: No ALLERGIES: Reviewed and unchanged CONTRAST ALLERGY: NO. EXAM: MRI - CONTRAST TYPE: GROUP II PERIPHERAL IV DATA: Ambulatory: A peripheral IV was started in the Left antecubital site with a Angio cath: 22 gauge. RADIOLOGY DEPARTMENT: MR; Exam(s) Completed: Head: Routine Brain SIGNATURE: Ana Leone RDMS, SHABBIR Yin ([facility]) PATIENT NAME: Jaya Hopson DATE: December 11, 2023 TIME: 8:29 AM documented in this [facility] [place] Telephone encounter Note * Telephone Encounter - Yeny Leiva MA - 11/27/2023 6:58 AM EDT Referral sent to private office, forwarding message [id number] Miscellaneous Notes* Telephone Encounter - Yeny Leiva MA - 11/27/2023 6:58 AM EDT Referral sent to private office, forwarding message * Telephone Encounter - Crystal Blum - 11/26/2023 4:33 PM EDT Name of Caller: Jaya Contact Reason for Appointment: Pt has a referral to plastic surgery and needs a call back to schedule her new patient appt. Please call patient. Office Name: Plastics Medication Refills need, if any: n/a Medication Name: n/a documented in this encounterSGerman [id number] Telephone encounter Note* Telephone Encounter - Crystal Blum - 11/26/2023 4:33 PM EDT Name of Caller: Jaya Contact Reason for Appointment: Pt has a referral to plastic surgery and needs a call back to schedule her new patient appt. Please call patient. Office Name: Plastics Medication Refills need, if any: n/a Medication Name: n/a [id number] History of Present illness Narrative* Rakesh Salazar MD - 11/26/2023 9:40 AM EDT Images from the original note were not included. HPI, PHYSICAL EXAMINATION & PLAN POST-OP HPI: Patient here today for 12 month post-weight loss surgery follow up, LRYGB, HH The patient is feeling well. Denies nausea, vomiting, dysphagia, or any GERD Sx. Currently is not on any PPI. Patient states diet and exercise is going fairly well. Currently is eating 65-75 gm/day protein, and is compliant with prescribed multivitamins and supplements. Review of Systems Constitutional: Negative for fatigue and fever. HENT: Negative for congestion, rhinorrhea and trouble swallowing. Respiratory: Negative for cough, chest tightness and shortness of breath. Cardiovascular: Negative for chest pain, palpitations and leg swelling. Gastrointestinal: Negative for abdominal distention, abdominal pain, blood in stool, constipation, diarrhea and nausea. Genitourinary: Negative for dysuria, flank pain, frequency and urgency. Musculoskeletal: Negative for arthralgias, back pain and myalgias. Skin: Negative for color change and rash. Neurological: Negative for light-headedness and headaches. Psychiatric/Behavioral: Negative for dysphoric mood. The patient is not nervous/anxious. Vital signs are stable. Labs were Completed. All labs were: B12 1935, B1 69, Plt 118 Physical Examination: BP 116/76 Pulse 58 Temp 36.6 C (97.9 F) Resp 16 Ht 5' 5 (1.651 m) Comment: [facility] ht check Wt 174 lb 6.4 oz (79.1 kg) BMI 29.02 kg/m General: This patient is awake, alert, and oriented, and is in no apparent distress. Abdomen: Obese, soft, non-tender, non-distended without masses/ No evidence of abdominal hernia / Incisions consistent with previous surgeries. Extremities: No cyanosis, clubbing or edema/ No calf tenderness/No restrictions of movement, is ambulatory without assistance. Neurological: Intact x 4 extremities, no focal deficits notes. Skin: No rashes or lesions noted. Rectal: Deferred Current Medications: Patient's Medications New Prescriptions No medications on file Previous Medications BIOTIN 5000 MCG TABLET Take 5,000 mcg by mouth before bedtime. CALCIUM CITRATE PO Take 500 mg by mouth 3 times daily. CHOLECALCIFEROL (VITAMIN D-3) 100 MCG (4000 UT) CAPSULE Take 1 capsule (100 mcg) by mouth daily. CYANOCOBALAMIN (B-12) [address] 500 mcg under the tongue daily. Place 500 mcgunder the tongue to dissolve once daily MULTIPLE VITAMINS-IRON (ONE DAILY MULTIVITAMIN/IRON) TABLET Take 1 tablet by mouth 2 times daily. MULTIPLE VITAMINS-MINERALS (CENTRUM WOMEN PO) Take 2 tablets by mouth before bedtime. With Iron . THIAMINE (VITAMIN B-1) 50 MG TABLET Take 1 tablet (50 mg) by mouth daily. Take 1 tablet by mouth daily. Modified Medications No medications on file Discontinued Medications No medications on file Medications ordered during this encounter: Outpatient Encounter Medications as of 11/26/2023 Medication Sig Dispense Refill biotin 5000 MCG tablet Take 5,000 mcg by mouth before bedtime. CALCIUM CITRATE PO Take 500 mg by mouth 3 times daily. cholecalciferol (Vitamin D-3) 100 MCG (4000 UT) capsule Take 1 capsule (100 mcg) by mouth daily. (Patient taking differently: Take 2,000 Units by mouth daily.) 30 capsule 11 Cyanocobalamin (B-12) [address] 500 mcg under the tongue daily. Place 500 mcgunder the tongue to dissolve once daily (Patient taking differently: Place 500 mcg under the tongue1 (one) time per week. Place 500 mcg under the tongue to dissolve once daily) 30 tablet 11 Multiple Vitamins-Minerals (CENTRUM WOMEN PO) Take 2 tablets by mouth before bedtime. With Iron . thiamine (Vitamin B-1) 50 MG tablet Take 1 tablet (50 mg) by mouth daily. Take 1 tablet by mouth daily. 30 tablet 3 Multiple Vitamins-Iron (One Daily Multivitamin/Iron) tablet Take 1 tablet by mouth 2 times daily. (Patient not taking: Reported on 11/26/2023) 60 tablet 11 No facility-administered encounter medications on file as of 11/26/2023. Orders Placed This Encounter Procedures Zinc Folate Iron Ferritin Magnesium Vitamin B12 Comprehensive metabolic panel CBC Visit Diagnoses: 1. Intestinal malabsorption, unspecified type 2. Deficiency of multiple nutrient elements 3. GERD without esophagitis 4. BMI 29.0-29.9,adult Plan: 1). Diet and Exercise: (See RD recommendations) 2). Continue to monitor for signs and symptoms of GERD / OFF PPI 3). Labs: p 4). Psych concerns : No 5). Excessive skin concerns: Yes, will refer to plastics. Dr. Paulson 6). If patient is a woman of childrearing age- 18-50. We discussed the importance of contraception during the first 12-18 months post op, and we discussed that fertility will increase following the procedure. Advised patient to discuss with her OBGYN regarding contraception. Patient counseled with good understanding verbalized. 7). Weight loss: Post-op Weight Metrics: %EBWL: % EBWL: 76% Weight Change Since Last Visit: Weight Change: -28.2 lbs Weight Change from Highest Pre-op Weight: Total Weight Change: -129 lbs 8). Thrombocytopenia- To discuss with PCP. The patient met with the dietitian today to review our vitamin and protein recommendations. Increase activity as recommended, the wounds are healed, no evidence of abdominal wall hernias. No nausea vomiting or dysphagia noted. Appropriate bowel function, discussed with her regarding contacting us for any questions or concerns. Follow-up 18 months postop. I personally performed the evaluation and management of Jaya Hopson in the development of a treatment plan for this patient. I personally interviewed the patient and performed an individual physical examination. In addition, I discussed the patient's condition and treatment options with them. Ihave also reviewed and agree with the past medical, family and social history unless otherwise noted. All of the patient's questions were answered. I discussed/counseled the patient regarding the postoperative care plan for this patient. The patient was seen and examined independently and relevant data reviewed by myself. A full chart review wasperformed. Patient Care Team: Izabela Rivero MD as PCP - General (Family Medicine) Rakesh Salazar MD as Surgeon (General Surgery) * Diana Taylor - 11/26/2023 9:40 AM EDT [facility] PROGRESS [facility] POST WEIGHT LOSS SURGERY FOLLOW UP Patient: Jaya Hopson Service Date: 11/26/2023 Patient is 12 month(s) s/p RnY Gastric Bypass Today's Metrics: Post-Surgical Weight Loss Date: 11/26/23 Height: 5' 5 (165.1 cm) Weight: 174 lb 6.4 oz (79.1 kg) BMI: 29.02 Weight Change: -28.2 lbs Total Weight Change: -129 lbs % EBWL: 76% Comments: 12M Pre-op Weight Metrics: Post-op Weight Metrics: %EBWL: % EBWL: 76% Weight Change Since Last Visit: Weight Change: -28.2 lbs Weight Change from Highest Pre-op Weight: Total Weight Change: -129 lbs Patient has the following questions: none Pain: Patient rates pain on scale 0-10 as: 0 Exercise Compliance: Exercising: yes If yes: Type: walking Times per week: 3 Min per session: 20-30 Falls Risk Assessment Patient does not take medications which affect BP or mental status Patient does not have newly prescribed or changed dosage of medications within past 30 days which affect BP or mental status Patient has not fallen in the past 2 months Patient does not demonstrate unsteady gait Patient uses the following ambulatory assistive devices: none Patient states the presence of the following traits which increases risk of fall: none Patient is not on home O2 Labs Completed: yes - If NO, patient instructed to get labs drawn today or GIL If YES: Labs completed at [facility]? yes If yes see Labs Tab Labs completed at Non-[facility] facility? no If yes see Encounters Tab - Orders only - Historical Provider - Date: Completed by: Diana Taylor * Annette Griffith RD - 11/26/2023 9:40 AM EDT [facility] > 6 MONTH POST-OPERATIVE DIETITIAN VISIT Date: 11/26/23 Patient's weight decreased by: 129 lbs Patient does not consume 5-6 small meals daily (3-4 x/day) Patient s portions are adequate for current diet: -1 cup Protein requirements discussed- currently consuming 100 +grams protein daily. Current protein sources: protein shake, chicken, steak, turkey, protein bar, beans, cottage cheese Recommendations:none Fluid requirements discussed. Current Fluid Intake: 80 oz/day Patient does drink sugar-free, caffeine-free and carbonation-free fluids only. Patient does wait 30 minutes before and after meals to drink Exercise activities discussed. Patient does currently exercise. She was reminded that regular exercise is critical part of a successful outcome following weight loss surgery. (Walking 3x/wk) Behavioral/Emotional changes reviewed. Patient does feel comfortable with changes in eating behaviors and associated emotional changes. She was reminded that psychological counseling is available through the [facility] post-operatively. Recent Nutrient Concerns and Vitamin Supplementation Changes: Pt compliant with vitamin/mineral protocol. Notes/Comments: Pt doing well. Pt encouraged to call/Mychart with questions. Visit completed by: Annette Griffith RD documented in this [facility]03-21-2024 Miscellaneous Notes* Telephone Encounter - Alex Cummins APRN.CNP - 11/21/2023 2:09 PM EDT The following approved medication requests have been transmitted electronically. Requested Prescriptions Signed Prescriptions Disp Refills ubrogepant (UBRELVY) 100 mg tablet 10 tablet 11 Sig: Take 1/2 to1 tablet by mouth as needed (take at onset of migraine, repeat in 2 hours). Alex Cummins APRN.CNP * Telephone Encounter - Anai Woods RN - 11/20/2023 1:03 PM EDT Patient requesting refill via Mychart . Last OV: 11/07/2023 Future OV: 02/13/2024 Last prescribed: 08/30/2023 Requested Prescriptions Pending Prescriptions Disp Refills ubrogepant (UBRELVY) 100 mg tablet 10 tablet 3 Sig: Take 1/2 to1 tablet by mouth as needed (take at onset of migraine, repeat in 2 hours). documented in this encounter[facility] [place]-[facility]24 Miscellaneous Notes* Telephone Encounter - Zenia Durán LPN - 11/15/2023 4:42 PM EDT Forwarded to provider for review and recommendation. SETH: 11/07/2023 NOV: 02/13/2024 * Telephone Encounter - Zenia Durán LPN - 11/15/2023 4:25 PM EDT TC to patient, no answer, LM to inform we will send message though MYC. MYC message sent with providers message. * Telephone Encounter - Alex Cummins APRN.CNP - 11/15/2023 3:34 PM EDT Please call her and let her know that if she's still not tolerating Topamax, she can discontinue itand we can consider botox or Ajovy instead. I favor botox for her since she struggles with neck pain. Thanks, Alex Cummins APRN.MAXINE * Telephone Encounter - Anai Woods RN - 11/15/2023 10:43 AM EDT Forwarded to provider for review. SETH: 11/07/2023 Future OV: 02/13/2024 documented in this encounterSelect [facility], [place]-2024 Miscellaneous Notes* Telephone Encounter - Anai Woods RN - 11/11/2023 11:22 AM EDT Forwarded to provider for review. SETH: 11/07/2023 Future OV: 02/13/2024 documented in this encounterSelect [facility], [place]-07-2024 Instructions* Patient Instructions* Alex Cummins APRN.CNP - 11/07/2023 10:09 AM EST Topamax Dosing Schedule Week 1: 25 mg each evening Week 2: 50 mg each evening Week 3: 75 mg each evening Side effects that may occur are cognitive slowing (word finding problems), paresthesias (tingling in hands and feet), weight loss due to decreased appetite, and rarely kidney stones or reversible acute glaucoma. Inform your physician if you are or planning on getting as this medication is not safe during . If you get numbness and tingling in your hands and feet, buy potassium 99 mg OTC and use twice a day. Carbonated beverages may have a metallic taste. Magnesium: Magnesium Oxide (400 or 500 mg at bedtime) or Magnesium Glycinate (600 mg at bedtime) has a relaxant effect on smooth muscles such as blood vessels. Individuals suffering from frequent or daily headache usually have low magnesium levels which can be increase with daily supplementation [id number] mg. Three trials found 40-90% average headache reduction when used as a preventative. Magnesium also demonstrated the benefit in menstrually related migraine. Magnesium is part of the messenger system in the serotonin cascade and it is a good muscle relaxant. It is also useful for constipation which can be a side effect of other medications used to treat migraine. Good sources include nuts, whole grains, and tomatoes. Alex Cummins APRN.MAXINE documented in this encounterSelect [facility] [place]-[facility]24 History of Present illness Narrative* Alex Cummins APRN.CNP - 11/07/2023 9:21 AM EST Images from the original note were not included. Outpatient [facility] - Follow Up Visit Accompanied by: Mother Primary Problem List: 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, Not Intractable Chief Complaint: Patient presents with: Headache Impression and Plan from last visit 08/30/2023, me: IMPRESSION: Migraine with aura and without status migrainosus, not intractable (primary encounter diagnosis) Bilateral occipital neuralgia Chiari malformation type i (hcc) Jaya Hopson is a 28 year old year old female, with a history of thrombocytopenia, chiari malformation, and asthma following up today virtually for migraines. Overall she has episodic headaches,but is in need of a reliable rescue medication, of which she has tried and failed many. We will start a trial of Ubrelvy. Their neurological examination is essentially normal at this visit although this is limited due to nature of telehealth. PLAN: Start trial Ubrelvy, will submit for auth Can take sumatriptan ns prn in the meantime, recommend staying upright to avoid post nasal drip Zofran prn (she will check if odt and if not I will send) Consider gbn Interval Headache History: Jaya Hopson is a 28 year old year old female, with a history of thrombocytopenia, chiari malformation, asthma, and gastric bypass, following up today for headaches. Since the last visit, the patient states that her headaches are much worse. Sent mc message on 10/29: I ve been having a recent uptick in migraine headaches and they ve been getting pretty bad. I sentin a request for a visit because it s getting to the point where it s interfering with my everyday life. The estephania works but for some reason I ve been having more episodes that last for 2-4 days pavithra time. More frequent longer migraines, and days even without the headache she has photophonophobia and nausea. 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 Has had to leave work early due to migraine and have her mom pick her up since they were so severe she couldn't drive. Estephania works very well. Brings the pain down to help her sleep. She has trouble falling asleep, taking melatonin. Working on hydrating more. Headache 1 This is the current headache. Location: occipital (can radiate forward to retro-orbital R > L -- assocaited with neck pain ) Quality/Description: throbbing, aching and sharp Other symptoms: photophobia, phonophobia, dizziness and neck pain (can have sensory overload all the time. denies autonomic symptoms with headaches ) Worse with activity: yes Number of migraine headache days/month: 10 Migraine Severity: mild Number of headache free days/month: 10 Duration of headaches with treatment: Duration of attacks with treatment: lasts minutes to 1 hour then will stop --> does not pay much attention to these headaches Triggers: none Most common time of day for headache to begin: anytime Aura: flashing lights Days missed from work or school in the last month: 2 days Preventative: none Abortive: ubrelvy Contraception: Depo Prior Therapies Duration of Use Dose Reason for Discontinuation Anti-Depressant and Antipsychotic Aripiprazole (Abilify) Duloxetine (Cymbalta) Nortriptyline (Pamelor, Aventyl) Sertraline (Zoloft) Antiemetics Prochlorperazine Anti-Migraine Dihydroergotamine (DHE-45, Migranal) Sumatriptan (Imitrex, Sumavel) Blood Pressure Nadolol (Corgard) MABs Galcanezumab (Emgality) menses discontinued Sleep Aids Trazodone (Desyrel) Over the Counter Medications Acetaminophen/Aspirin/Caffeine (Excedrin, Goody s) Ibuprofen (Advil, Motrin) PAST MEDICAL HISTORY Diagnosis Date Asthma Brain lesion Chiari malformation type I (HCC) Migraines Thrombocytopenia (HCC) PAST SURGICAL HISTORY Procedure Laterality Date TONSILLECTOMY AND ADENOIDECTOMY HX age 5 ALLERGIES Allergen Reactions Fluocinolone Anaphylaxis Amoxicillin Hives Current Medications: ubrogepant (UBRELVY) 100 mg tablet Take 1/2 to1 tablet by mouth as needed (take at onset of migraine, repeat in 2 hours). albuterol HFA (PROVENTIL HFA, VENTOLIN HFA) 90 mcg/actuation inhaler Inhale as instructed. topiramate (TOPAMAX) 25 mg tablet Take 1 tablet by mouth daily at bedtime for 7 days, THEN 2 tablets daily at bedtime for 7 days, THEN 3 tablets daily at bedtime. SUMAtriptan (IMITREX) 20 mg/actuation nasal spray Use 1 Lynx in the nose as needed. INHALE ONE(1) SPRAY INTO ONE(1) NOSTRIL AT ONSET OF HEADACHE. MAY REPEAT AFTER 2 HOURS. (Patient not taking: Reported on 11/07/2023) I have reviewed the Health Status Assessment responses and discussed these with the patient: yes Alex Cummins APRN.HIDE CURER HEADACHE SCORES: Headache Questions 05/31/2023 08/28/2023 10/31/2023 ER visits since last office visit: - 0 0 Hospital stays since last office visit - 0 0 Limited ADLs in the last month: - 2 10 Days missed from work or school in the last month: - 0 2 Days headache pain free in the last month: - 25 10 Days per month with ALL of the following symptoms - decreased productivity, light sensitivity and nausea: - 4 10 Initial improvement of headache after botox injection at last visit: - Not applicable, I did not have a botox injection at my last visit Not applicable, I did not have a botox injection at my last visit PRN medication usage in the last month: - 4 10 Patient impression of improvement since last visit: Minimally worse Minimally worse Much worse HIT-6 05/31/2023 08/28/2023 10/31/2023 HIT-6 - - - HIT-6 75 (Severe impact) 65 (Severe impact) 74 (Severe impact) MAYCOL - 2/7 SCORES 05/31/2023 08/28/2023 10/31/2023 MAYCOL-2 Score 0 1 6 MAYCOL-7 Score - - 17 Migraine Specific QOL - Higher scores indicate better HRQL 05/31/2023 08/28/2023 10/31/2023 Role Function-Restrictive Transformed Score (range: 0-100) 8.57 45.71 2.86 Role Function-Preventive Transformed Score (range: 0-100) 70 75 10 Emotional Function Transformed Score (range: 0-100) 60 40 0 PHQ-9 05/31/2023 08/28/2023 10/31/2023 Score 1 5 8 Studies to Review: Yes MRI Head/Brain - Last 2 Impressions MRI BRAIN WO/W IVCON Exam End: 12/26/2020 9:49 AM (Final result) Impression: IMPRESSION: Stable findings of Chiari I malformation with similar degree of crowding at the foramen magnum. ... MRI BRAIN WO/W IVCON Collected: 01/06/2018 5:30 PM (Final result) Impression: IMPRESSION: Stable Chiari I malformation with no abnormal enhancement. ... Labs to Review Yes, 08/16/2023 CMP and TSH normal Review of Systems: Review of system : unchanged from the previous visit (sleep patterns, mood, energy, appetite, stress, exercising). Physical Examination: VS: BP 109/59 (BP Site: Right Arm, BP Position: Sitting, BP Cuff Size: Regular Adult) Pulse (!) 57 Temp 36.6 C (97.8 F) (Temporal) Ht 168.8 cm (5' 6.46) Wt 83 kg (182 lb 14 oz) LMP 07/03/2019 (Exact Date) BMI 29.11 kg/m General: well appearing, in no acute distress, alert HEENT: Normocephalic/atraumatic. Skin: Color, texture, turgor normal. No rashes or lesions Musculoskeletal: No gross joint deformities. Neurological: Pain Behaviors: no pain behaviors observed Mental Status: Alert and oriented to person, place and time. Affect is normal. Speech is spontaneous and fluent without dysarthria. Short and mcc memory, cognition and general fund of knowledgeare good. Attention span and concentration are excellent. Cranial Nerves: II-Visual yee are full. III, IV, -EOMI, VII-face is symmetric without evidenceof weakness. VIII-hearing grossly intact. XII-No atrophy or fasciculations of the tongue. Motor: Normal muscle tone and bulk. No evidence of atrophy or fasciculations. Gait examination is normal. IMPRESSION: Jaya Hopson is a 28 year old year old female, with a history of thrombocytopenia, chiari malformation, asthma, gastric bypass, and migraine w/wo aura. Ubrelvy is an effective rescue medication for her. However, her migraines and associated sx have become more frequent and chronic and she is in need of ppx therapy. We will try Topamax. She has no h/o kidney stones or plans for . Patient verbalized understanding and agreed to treatment plan. Her neurological examination is essentially normal at this visit. PLAN: - start trial topamax qhs - start magnesium 500 qhs - cont ubrelvy prn - increase hydration Prior Authorizations: Jaya Hopson has been previously approved for an Oral Calcitonin Gene-Related Peptide Receptor Antagonist (GEPANT) Ubrogepant for the treatment of abortive use. The patienthas demonstrated the following: Provider attests patient has had a positive clinical response: Yes Patient will not use with another Oral Calcitonin Gene-Related Peptide Receptor Antagonist (GEPANT): Yes Patient's quality of life and ability to perform ADLs has improved: Yes The patient has tried and failed the following : We suggest the patient continue treatment with GEPANT Ubrogepant. The following preventative medications have been tried for three or more months without benefit: Anti-Depressant and Antipsychotic Aripiprazole (Abilify) Duloxetine (Cymbalta) Nortriptyline (Pamelor, Aventyl) Sertraline (Zoloft) Blood Pressure Nadolol (Corgard) MABs Galcanezumab (Emgality) menses discontinued The following abortive medications have been tried but require high frequency use which can lead toMedication Overuse Headache: Anti-Migraine Dihydroergotamine (DHE-45, Migranal) Sumatriptan (Imitrex, Sumavel) Over the Counter Medications Acetaminophen/Aspirin/Caffeine (Excedrin, Goody s) Ibuprofen (Advil, Motrin) HEADACHE MANAGEMENT: (You are the primary guardian of your health and headache. Keep track of all medications: This includes the reason for use, side effects and benefits.) MEDICATION TREATMENT: Medications to Start Taking topiramate (TOPAMAX) 25 mg tablet Take 1 tablet by mouth daily at bedtime for 7 days, THEN 2 tablets daily at bedtime for 7 days, THEN 3 tablets daily at bedtime. Discussed pathophysiology of headache. Discussed triggers and lifestyle modifications including limiting caffeine consumption. Discussed treatment options, both abortive and preventive medications. Instructed patient about medications. Discussed potential adverse effects and drug interactions of medications. Discussed the need for contraception and potential adverse effects to fetus. Discussed natural supplements including Mg, B2, Feverfew, Co Q 10, melatonin, and Butterbur. Discussed testing. Written educational materials given. Headache education was done. Discussed lifestyle modification including increased oral hydration, decreased caffeine, exercise and stress management. Discussed treatment options including preventive and acute medications, natural supplements, and infusion therapy. Discussed medication overuse headache and to limit use of acute treatments to no more than 2 days/week or 10 days/month. Discussed medication side effects, adverse reactions and drug interactions. Follow-up: 3 months, PRN Level of service: Est level 4 (30-39 min). Time spent 35 min on the day of service, which included preparing to see the patient, [id number] patient care, completing clinical documentation, obtaining and/or reviewing separately obtained history, counseling and educating the patient/family/caregiver, ordering medications, tests, or procedures, independently interpreting results (not separately reported), and care coordination (not separately reported). Alex Cummins APRN.CNP Headache Section [facility] November 07, 2023 documented in this [facility] [place] History of Present illness Narrative* Zaria Gilman CNP - 11/05/2023 2:00 PM EST General Cardiology Returning Patient Clinic Visit [facility] 11/05/2023 Zaria Gilman CNP [address] [place] [address] Medical Office 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 Taylor PCP: Izabela Rivero MD Chief Complaint: Echo and holter follow up for syncope Date of Service: 11/05/2023 Assessment and Plan: Syncopal episodes Previously seen earlier this year in consultation by Dr. Taylor. An echocardiogram was ordered showingnormal LVEF of 61%. RV size and systolic function is normal. There is no hemodynamically significant valvular disease. Holter monitor was completing showing predominant rhythm is sinus rhythm. Maximum heart rate was 146 bpm. Minimum heart rate was 52 bpm. There was less than 1% burden of ventricular ectopic beats. And less than 1% burden of supraventricular ectopic beats. -No further syncopal episodes Tips and tricks for vasovagal syncope reviewed with patient As we talked about, counterpulsation maneuvers can be very helpful-clench your fists, bear down like you are having a bowel movement, cross your legs Increase sodium in your diet, salty foods, adding salt to meals, salty drinks such as Gatorade or Powerade Avoid triggers such as hot showers, large meals, bearing down Eat small high-protein meals throughout the day Sleep with head of bed elevated Stand very slowly Increase hydration to at least 64 ounces of water daily Return as needed It has been a pleasure caring for this patient. Please don't hesitate to reach out to my office directly with any questions or concerns. Follow-up: as needed Zaria Gilman, MSN, SOLID WASTE MANAGEMENT ENGINEER, JUNIOR ESTIMATOR-C, DICTATING MACHINE MECHANIC, ECG- General Cardiology [facility] History of Present Illness: Jaya Hopson is a 28 y.o. woman with a past medical history of asthma, anxiety, depression, and migraines. She was previously seen in our clinic on 09/09/[address] Taylor with complaints of having syncopal episodes. Per Dr. Taylor's notes, she reported feeling flushed and hot but denied nausea. She also complained of episodes of palpitations. 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 She reports previous tilt table test and was told that she had some inner ear damage. Previously seen earlier this year in consultation by Dr. Taylor. An echocardiogram was ordered showingnormal LVEF of 61%. RV size and systolic function is normal. There is no hemodynamically significant valvular disease. Holter monitor was completed showing predominant rhythm is sinus rhythm. Maximumheart rate was 146 bpm. Minimum heart rate was 52 bpm. There was less than 1% burden of ventricular ectopic beats. And less than 1% burden of supraventricular ectopic beats. Echocardiogram and Holter results reviewed with the patient. She denies any further syncopal episodes. She denies chest pain or discomfort. She denies shortness of breath, orthopnea or PND. She denies palpitations, lightheadedness or presyncope. She has no cardiovascular complaints at today's office visit. Objective Review of Systems: All systems were reviewed and noted to be negative unless otherwise stated in HPI. Past Medical History: Diagnosis Date Anxiety Asthma Chiari malformation type I (HCC) Depression Migraine 2016 Past Surgical History: Procedure Laterality Date ADENOIDECTOMY FINGER SURGERY Left Thumb GASTRIC BYPASS 10/2022 [facility] in [place] TONSILLECTOMY WISDOM TOOTH EXTRACTION Family History Problem Relation Age of Onset Diabetes Mother Cancer Father Prostate Cancer Diabetes Father Stroke Father Atrial fibrillation Father Cancer Maternal Grandfather Lung cancer Colon cancer Paternal Grandfather Cancer Paternal Grandfather Colon cancer Social History Tobacco Use Smoking Status Never Smokeless Tobacco Never Allergies: Fluocinolone and Amoxicillin All of the above information has been reviewed at today's visit and modified if necessary. Home Medications: Current Outpatient Medications: albuterol 90 mcg/actuation inhaler, Inhale ., Disp: , Rfl: biotin 2,500 mcg cap, Take 1 (one) capsule (2,500 mcg total) by mouth daily Twice daily ., Disp: , Rfl: calcium citrate (CALCITRATE) 200 mg (950 mg) tablet, Take 1 (one) tablet (950 mg total) by mouth daily ., Disp: , Rfl: cholecalciferol, vitamin D3, (Vitamin D3) 25 mcg (1,000 unit) capsule, Take 1 (one) capsule (1,000 Units total) by mouth daily ., Disp: , Rfl: cyanocobalamin (B-12) 500 MCG tablet, Take 1 (one) tablet (500 mcg total) by mouth every other day ., Disp: , Rfl: Physical Exam: There were no vitals taken for this visit. Constitutional: Well appearing -English female, no acute distress Head: Normocephalic and atraumatic. Eyes: Conjunctivae are normal, no scleral icterus, no corneal arcus Cardiovascular: Cardiac to regular rate and regular rhythm, no murmurs appreciated on today's exam,normal S1 and S2, no rubs or gallops, PMI is midline. No JVD noted. No peripheral edema. Lungs: Clear to auscultation, no rales, wheezes or rhonchi Pulses: +2 dorsalis pedis pulses bilaterally Musculoskeletal: Normal range of motion. Neurological: AOx3, moving all extremities normally Skin: Skin is warm and dry, normal hair pattern Psychiatric: Normal mood and affect, appropriate conversation Cardiovascular Studies: Echo 09/17/2023 Summary 1. Left ventricular systolic function is normal with an ejection fraction by Biplane Method of Discs of 61 %. 2. Right ventricular size and systolic function are normal. 3. The left ventricular diastolic function is normal. 4. No hemodynamically significant valvular disease. Labs: Lab Results Component Value Date GLUCOSE 90 08/16/2023 CALCIUM 9.1 08/16/2023 NA 139 08/16/2023 K 3.9 08/16/2023 CL 108 08/16/2023 BUN 13 08/16/2023 CREATININE 0.89 08/16/2023 Lab Results Component Value Date WBC 3.52 (L) 08/16/2023 WBC 3.52 (L) 08/16/2023 WBC 3.52 (L) 08/16/2023 HGB 12.7 08/16/2023 HGB 12.7 08/16/2023 HGB 12.7 08/16/2023 HCT 39.8 08/16/2023 HCT 39.8 08/16/2023 HCT 39.8 08/16/2023 MCV 93.4 08/16/2023 MCV 93.4 08/16/2023 MCV 93.4 08/16/2023 PLT 120 (L) 08/16/2023 PLT 120 (L) 08/16/2023 PLT 120 (L) 08/16/2023 RBC 4.26 08/16/2023 RBC 4.26 08/16/2023 RBC 4.26 08/16/2023 No results found for: CHOL, LDLCALC, LDLDIRECT, TRIG, HDL No results found for: HGBA1C Lab Results Component Value Date ALT 22 08/16/2023 AST 13 08/16/2023 ALKPHOS 62 08/16/2023 BILITOT 0.6 08/16/2023 The ASCVD Risk score (Femi AVILES, et al., 2019) failed to calculate for the following reasons: The 2019 ASCVD risk score is only valid for ages 40 to 79 documented in this [id number] Instructions* Patient Instructions* Christine Ko RN - 09/09/2023 3:[address] Taylor Nurse- GABE King Any questions or concerns please call [phone] THANK YOU FOR VISITING [facility]! Holter Help and Phone Number LAX[employer] [place] [phone] [employer] [phone] Date and Time of Study to End Holter Monitor Essentials 1. The device is waterproof. Showers are OKAY 2. Device battery is to last up to 5 days. Anything past 5 days needs to be charged. [employer] included in the box. 3. Extra strips are inside of the box. Sensitivity patches will need to be mailed by [employer] if needed. [phone] 4. Please DO NOT return the device to [facility] after the study has been completed. It will be the patient's responsibility to return the device to [facility]. 5. Diary is located in the box. Date, Time of event and symptom is to be written down. Please note if having palpitations frequently, it is not necessary to write down every symptom. Your device will catch every heart rhythm for you. 6. After the device is mailed, it will take 1-2 weeks for your results to be returned to you. It is the ordering provider s nurse responsibility to call you with the results. UPS Drop Off Box Locations Number for [facility]: [phone] Health [facility] STORE [address] [place], [address] [address] [place], [address] [facility] [place], [address] [facility] ST[facility] [id number] [facility], [place], [address] [facility] [facility] [facility] [address] [facility], [place], [address] [facility] [address] [facility], [place], [address] [facility] [address] [place], [address] [facility] [address] [place], [address] [facility] [address] [facility], [place], [address] [facility] [address], [place], [address] [facility] [address]1037 [address] [place], [address] [facility] [address] [place], [address] [facility] [address] [place], [address] [address] [place], [address] [facility] ST[facility] # [address] [place], [address] [facility] [address] [place], [address] documented in this [id number] History of Present illness Narrative* Faith Taylor MD - 09/09/2023 2:58 PM EST OFFICE CONSULTATION NOTE [facility] [address] ([address]) [facility] [address] [facility] [address] Physicians: Izabela Rivero MD (Family); Trang Castillo, * (Referring) Subjective: Jaya Hopson is a 28 y.o. female seen in the office today for Establish Care (Per Trang Castillo for syncope) . HPI patient complains of having spells of syncope. She states that she feels flush and hot but no history of nausea he also notes her heart to race at times but not consistently. The spells occur when she has been upright such as playing the drums she states she had a tilt table test which she was discovered to have some inner ear damage at that time she was having problems with fainting to her of her colleagues have been diagnosed with POTS Assessment/Plan syncopal spells rule out neurocardiogenic syncope. She is advised to increase her fluid intake and to increase her intake of electrolytes specifically Gatorade or Pedialyte 16 ounces a day. She is told to increase her salt intake even going to taking salt tablets 5 g twice a day if need compression stockings are suggested he should have an echo and a 72-hour Holter monitor and return for follow-up EC29-MAY-2023 10:56:01 [facility] ROUTINE RECORD Normal sinus rhythm Cannot rule out Anterior infarct , age undetermined Abnormal Reviewed personally No problem-specific Assessment & Plan notes found for this encounter. Follow Up Ordered: No follow-ups on file. Patient's Medications New Prescriptions No medications on file Previous Medications ALBUTEROL 90 MCG/ACTUATION INHALER Inhale . BIOTIN 2,500 MCG CAP Take 1 (one) capsule (2,500 mcg total) by mouth daily Twice daily . CALCIUM CITRATE (CALCITRATE) 200 MG (950 MG) TABLET Take 1 (one) tablet (950 mg total) by mouth daily . CHOLECALCIFEROL, VITAMIN D3, (VITAMIN D3) 25 MCG (1,000 UNIT) CAPSULE Take 1 (one) capsule (1,000 Units total) by mouth daily . CYANOCOBALAMIN (B-12) 500 MCG TABLET Take 1 (one) tablet (500 mcg total) by mouth every other day . Modified Medications No medications on file Discontinued Medications No medications on file Histories: Past Medical History: Diagnosis Date Anxiety Asthma Chiari malformation type I (HCC) Depression Migraine 2016 Past Surgical History: Procedure Laterality Date ADENOIDECTOMY FINGER SURGERY Left Thumb GASTRIC BYPASS 10/2022 [facility] in [place] TONSILLECTOMY WISDOM TOOTH EXTRACTION Family History Problem Relation Age of Onset Diabetes Mother Cancer Father Prostate Cancer Diabetes Father Stroke Father Atrial fibrillation Father Cancer Maternal Grandfather Lung cancer Colon cancer Paternal Grandfather Cancer Paternal Grandfather Colon cancer Social History Tobacco Use Smoking status: Never Smokeless tobacco: Never Vaping Use Vaping Use: Never used Substance Use Topics Alcohol use: Never Alcohol/week: 1.0 standard drink of alcohol Types: 1 Standard drinks or equivalent per week Drug use: Never Allergies Allergen Reactions Fluocinolone Anaphylaxis Amoxicillin Hives Review of Systems Constitutional: Negative. HENT: Negative. Eyes: Negative. Cardiovascular: Negative for palpitations. Respiratory: Negative. Endocrine: Negative. Skin: Negative. Musculoskeletal: Negative. Gastrointestinal: Negative. Genitourinary: Negative. Neurological: Negative. Psychiatric/Behavioral: Negative. All other systems reviewed and are negative. Overview of Problems Addressed: No problems updated. Objective: Vitals: BP 121/83 (BP Location: Left arm) Pulse 62 Ht 5' 6 Wt 86.2 kg (190 lb) SpO2 100% BMI 30.67 kg/m no orthostatic change in blood pressure or heart rate Physical Exam Constitutional: Appearance: Normal appearance. HENT: Head: Normocephalic and atraumatic. Nose: Nose normal. Eyes: Extraocular Movements: Extraocular movements intact. Pupils: Pupils are equal, round, and reactive to light. Cardiovascular: Rate and Rhythm: Normal rate and regular rhythm. Pulses: Normal pulses. Heart sounds: Normal heart sounds. Pulmonary: Effort: Pulmonary effort is normal. Breath sounds: Normal breath sounds. Abdominal: General: Abdomen is flat. Bowel sounds are normal. Palpations: Abdomen is soft. Musculoskeletal: General: Normal range of motion. Cervical back: Normal range of motion and neck supple. Skin: General: Skin is warm and dry. Neurological: General: No focal deficit present. Mental Status: She is alert and oriented to person, place, and time. Mental status is at baseline. 1. Syncope, unspecified syncope type Faith Taylor MD 09/09/2023 * Angelina Schreiber MA - 09/09/2023 2:51 PM EST Review of Systems Cardiovascular: Positive for syncope. All other systems reviewed and are negative. documented in this [id number] History of Present illness Narrative* SINCERE Cormier, SOO - 08/20/2023 7:44 AM EST Images from the original note were not included. Established Patient Visit SINCERE Cormier DPM Patient Name: Jaya Hopson. . Date of : 1995, 28 y.o.. Gender: female. Subjective: Patient is a pleasant 28-year-old female who presents to clinic today for follow-up of left posterior malleolus fracture. Patient overall has been doing extremely well and has been full weightbearingin the boot without crutches. Patient has no pain. Patient denies any current fever, chills, nausea, vomit, calf pain chest pain or shortness of breath. Patient has no other pedal complaints at this time. Physical Examination: LMP (LMP Unknown) General Appearance: Alert, cooperative, no distress, appears stated age. Podiatric Exam Vascular: DP and PT pulses are easily palpable, 2/4. Capillary refill time is brisk to distal digits, less than 3 seconds. Skin temperature is warm to warm from proximal tibial tuberosity to distal digits. No dependent rubor. Neurological: Epicritic and protopathic sensation intact to bilateral lower extremities. Dermatologic: Quality of skin is supple. Nails 1-5 bilaterally are normotrophic. Webspaces 1-4 bilaterally are clean, dry and intact. No hyperkeratoses. No open lesions, rashes or subcutaneous nodules of note. Mild edema noted of the left ankle greater than the right, improved. Musculoskeletal: Bilateral foot and ankle overall rectus alignment. Muscle strength testing deferred today secondary to trauma. Ankle joint range of motion limited with knee extended slightly creasedknee flex. No pain with this. No pain on palpation to the posterior ankle joint. No pain directly to the Achilles tendon or Achilles tendon insertion. No pain on palpation noted to the ATFL. No pain on palpation to the AITFL lateral malleolus peroneal tendons deep deltoid ligament or medial malleolus. Diagnoses: 1. Closed fracture of left ankle with routine healing, subsequent encounter 2. Sprain of left ankle, unspecified ligament, initial encounter 3. Acute left ankle pain Imagin views of the left ankle reviewed today AP ankle mortise and lateral. Persistent visualization of posterior malleolus lucency and fracture with out increased displacement. Appears to have increased trabeculation but difficult to fully appreciate secondary to double density of the fibula. Assessment/Plan: Patient was seen and evaluated. Discussed all clinical and radiographic findings Educated patient on overall status of the ankle. Discussed process of bone and soft tissue healing. Patient is essentially completely clinically healed at this point. Patient can transition out of the boot into a sturdy lace up athletic type tennis shoe and brace. Dispensed rehab exercises Patient to continue with mobility. Should she have any issues she is to call and we can get her into some formal physical therapy. Otherwise patient can follow-up as needed This note was partially created using voice recognition software and is inherently subject to errors including those of syntax and sound-alike substitutions which may escape proofreading. In such instances, original meaning may be extrapolated by contextual derivation. SINCERE Cormier DPM Podiatric Foot & Ankle Surgery documented in this [id number] Evaluation + Plan note* Assessment & Plan Note - Trang Castillo CNP - 08/16/2023 8:18 AM EST Associated Problem(s): Syncope Recurrent. Obtain labs. Refer to cardiology. May benefit from Holter monitor evaluation. Encouraged adequate fluid intake. Also encouraged electrolyte replacement such as Gatorade zero [id number] Miscellaneous Notes* Assessment & Plan Note - Trang Castillo CNP - 08/16/2023 8:18 AM ESTAssociated Problem(s): Syncope Recurrent. Obtain labs. Refer to cardiology. May benefit from Holter monitor evaluation. Encouraged adequate fluid intake. Also encouraged electrolyte replacement such as Gatorade zero documented in this [id number] History of Present illness Narrative* Trang Castillo CNP - 08/16/2023 7:39 AM EST Subjective Patient ID: Jaya Hopson is a pleasant 28 y.o. female here with concerns of syncope. HPI Syncope: Onset 2 years, approximate. Frequency - occurs in clusters. Patient reports near syncope and complete syncopal episodes. Last episode of syncopal episodes was in December,. Prior to the episodes patient reports developing tinnitus, vision changes, heart racing, flushing and nausea. Duration - few seconds. Post episode, reports feeling disoriented, weak and light-headed. Patient reports the weakness and fatigue will linger for the rest of the day. No pattern/triggers identified. S/P Gastric Bypass in 10/2022. Reports difficulty obtaining adequate water intake. [facility]. Reports migraines are well controlled, occasional imitrex use. FH: Father with Atrial Fibrillation Reviewed by Provider: Tobacco Allergies Med Hx Surg Hx Fam Hx Soc Hx Review of Systems Constitutional: Negative for appetite change and unexpected weight change. HENT: Positive for tinnitus. Eyes: Positive for visual disturbance. Respiratory: Negative for shortness of breath. Cardiovascular: Positive for palpitations. Negative for chest pain. Gastrointestinal: Positive for nausea. Negative for vomiting. Neurological: Positive for dizziness, syncope and light-headedness. Objective BP 101/69 Pulse 64 Temp 98.4 F (36.9 C) (Temporal) LMP (LMP Unknown) SpO2 99% Physical Exam Constitutional: General: She is not in acute distress. HENT: Head: Normocephalic and atraumatic. Eyes: General: No scleral icterus. Cardiovascular: Rate and Rhythm: Normal rate and regular rhythm. Pulses: Normal pulses. Heart sounds: No murmur heard. Pulmonary: Effort: Pulmonary effort is normal. Breath sounds: Normal breath sounds. Musculoskeletal: General: Normal range of motion. Cervical back: Neck supple. No tenderness. Skin: General: Skin is warm and dry. Neurological: General: No focal deficit present. Mental Status: She is alert. Psychiatric: Behavior: Behavior normal. Assessment & Plan Problem List Items Addressed This Visit Syncope - Primary Recurrent. Obtain labs. Refer to cardiology. May benefit from Holter monitor evaluation. Encouraged adequate fluid intake. Also encouraged electrolyte replacement such as Gatorade zero Relevant Orders Ambulatory referral to Cardiology Comprehensive Metabolic Panel TSH with Reflex Free T4 CBC Iron Study with Ferritin Magnesium No follow-ups on file. documented in this [id number] History of Present illness Narrative* Sudha Waters, CNM - 08/07/2023 8:45 AM EST Patient ID: Jaya Hopson is a 28 y.o. female. Subjective Chief Complaint Patient presents with Annual Exam Annual exam wants depo today due for pap HPI: Jaya Hopson is a 28 y.o. female presents for routine annual exam, with no complaints.Shehad gastric bypass in 11/22 and has lost close to 115lbs. She is very happy with her progress and is eating a healthy diet and staying active. Her LMP is June, she is having irregular periods as she is on the depo shot for BC. She has never been sexually active. She denies any issues with bladder or bowels. She denies any fhx of breast or ovarian cancer. She does have a fhx of colon cancerin her paternal grandfather. OB History: OB History No obstetric history on file. Menstrual History No LMP recorded (lmp unknown). The following portions of the patient's history were reviewed and updated as appropriate: allergies, current medications, past medical history, past social history, past surgical history and problem list. Past Medical History: Diagnosis Date Anxiety Asthma Depression Migraine 2017 Review of Systems Constitutional: Negative for activity change, appetite change and fatigue. HENT: Negative for congestion and mouth sores. Respiratory: Negative for cough, chest tightness and shortness of breath. Cardiovascular: Negative for chest pain, palpitations and leg swelling. Gastrointestinal: Negative for abdominal distention, abdominal pain, diarrhea, nausea and vomiting. Endocrine: Negative for cold intolerance and heat intolerance. Genitourinary: Negative for difficulty urinating, dyspareunia, dysuria, menstrual problem, pelvic pain, vaginal bleeding, vaginal discharge and vaginal pain. Musculoskeletal: Negative for arthralgias and back pain. Skin: Negative for color change, rash and wound. Neurological: Negative for dizziness, syncope, light-headedness and headaches. Psychiatric/Behavioral: Negative for dysphoric mood, self-injury and suicidal ideas. The patient isnot nervous/anxious. Objective BP 124/83 Pulse 89 Ht 5' 6 Wt 86.2 kg (190 lb) LMP (LMP Unknown) BMI 30.67 kg/m Physical Exam Vitals reviewed. Constitutional: General: She is awake. She is not in acute distress. Appearance: Normal appearance. She is well-developed. HENT: Head: Normocephalic. Eyes: General: Lids are normal. Conjunctiva/sclera: Conjunctivae normal. Neck: Thyroid: No thyroid mass, thyromegaly or thyroid tenderness. Cardiovascular: Rate and Rhythm: Normal rate and regular rhythm. Heart sounds: Normal heart sounds. No murmur heard. No friction rub. No gallop. Pulmonary: Effort: Pulmonary effort is normal. No respiratory distress. Breath sounds: Normal breath sounds. No stridor. No decreased breath sounds, wheezing, rhonchi or rales. Chest: Chest wall: No mass, lacerations, deformity, swelling or tenderness. Breasts: Breasts are symmetrical. Right: Normal. No inverted nipple, mass, nipple discharge, skin change or tenderness. Left: Normal. No inverted nipple, mass, nipple discharge, skin change or tenderness. Abdominal: General: Bowel sounds are normal. There is no distension. Palpations: Abdomen is soft. There is no mass. Tenderness: There is no abdominal tenderness. Genitourinary: General: Normal vulva. Exam position: Supine. Pubic Area: No rash. Labia: Right: No rash, tenderness, lesion or injury. Left: No rash, tenderness, lesion or injury. Urethra: No urethral pain or urethral swelling. Vagina: Tenderness present. No vaginal discharge, erythema, bleeding or lesions. Cervix: No cervical motion tenderness, discharge, friability, erythema or cervical bleeding. Uterus: Normal. Not enlarged, not fixed and not tender. Adnexa: Right adnexa normal and left adnexa normal. Right: No mass, tenderness or fullness. Left: No mass, tenderness or fullness. Rectum: Normal. Comments: Tenderness with exam Musculoskeletal: General: Normal range of motion. Cervical back: Normal range of motion and neck supple. Right lower leg: No edema. Left lower leg: No edema. Lymphadenopathy: Upper Body: Right upper body: No supraclavicular or axillary adenopathy. Left upper body: No supraclavicular or axillary adenopathy. Lower Body: No right inguinal adenopathy. No left inguinal adenopathy. Skin: General: Skin is warm and dry. Neurological: Mental Status: She is alert and oriented to person, place, and time. Psychiatric: Mood and Affect: Mood normal. Speech: Speech normal. Behavior: Behavior normal. Thought Content: Thought content normal. Judgment: Judgment normal. Assessment/Plan: Diagnoses and all orders for this visit: Encounter for well woman exam with routine gynecological exam - medroxyPROGESTERone (DEPO-PROVERA) injection 150 mg - Thinprep Pap Smear - Jaya Hopson is a 28 y.o. pt who presents for routine annual exam with no complaints. Exam wnl, pap completed, pt offered STD screening, pt declines. SBE reviewed BC- depo. Pt is a non- smoker, advised healthy diet and exercise. RTO 1yr or PRN Vaginal discharge - Vaginitis DNA Probes; Future - Vaginitis DNA Probes documented in this [id number] History of Present illness Narrative* SINCERE Cormier DPM - 07/30/2023 8:03 AM EST Images from the original note were not included. Established Patient Visit SINCERE Cormier DPM Patient Name: Jaya Hopson. . Date of : 1995, 28 y.o.. Gender: female. Subjective: Patient is a pleasant 28-year-old female who presents to clinic today for follow-up of left posterior malleolus fracture. Patient overall has been doing extremely well and has been partial weightbearing in the boot with crutches. Patient has minimal to no pain. Patient denies any current fever, chills, nausea, vomit, calf pain chest pain or shortness of breath. Patient has no other pedal complaints at this time. Physical Examination: BP 123/79 (BP Location: Right arm, Patient Position: Sitting, BP Cuff Size: Adult) Pulse 68 Temp 98.5 F (36.9 C) (Infrared) LMP 07/02/2023 (Approximate) General Appearance: Alert, cooperative, no distress, appears stated age. Podiatric Exam Vascular: DP and PT pulses are easily palpable, 2/4. Capillary refill time is brisk to distal digits, less than 3 seconds. Skin temperature is warm to warm from proximal tibial tuberosity to distal digits. No dependent rubor. Neurological: Epicritic and protopathic sensation intact to bilateral lower extremities. Dermatologic: Quality of skin is supple. Nails 1-5 bilaterally are normotrophic. Webspaces 1-4 bilaterally are clean, dry and intact. No hyperkeratoses. No open lesions, rashes or subcutaneous nodules of note. Mild edema noted of the left ankle greater than the right, improved. Musculoskeletal: Bilateral foot and ankle overall rectus alignment. Muscle strength testing deferred today secondary to trauma. Ankle joint range of motion limited with knee extended slightly creasedknee flex. Minimal pain with this. Minimal pain on palpation to the posterior ankle joint. No pain directly to the Achilles tendon or Achilles tendon insertion. No pain on palpation noted to the ATFL. No pain on palpation to the AITFL lateral malleolus peroneal tendons deep deltoid ligament or medial malleolus. Diagnoses: 1. Closed fracture of left ankle with routine healing, subsequent encounter 2. Closed fracture of posterior malleolus of left tibia with routine healing, subsequent encounter 3. Sprain of left ankle, unspecified ligament, initial encounter 4. Acute left ankle pain Imagin views of the left ankle reviewed today AP ankle mortise and lateral. Persistent visualization of posterior malleolus lucency and fracture with out increased displacement. Appears to have increased trabeculation but difficult to fully appreciate secondary to double density of the fibula. Assessment/Plan: Patient was seen and evaluated. Discussed all clinical and radiographic findings Educated patient on overall status of the ankle. Discussed process of bone and soft tissue healing. Patient can progress from partial weightbearing to full weightbearing in the boot as tolerated. Dispensed rehab exercises that she is supposed to do passively with no active or range of motion's against resistance. Patient to follow-up in 3 weeks for reevaluation at which point in time patient likely can transition back into a shoe. This note was partially created using voice recognition software and is inherently subject to errors including those of syntax and sound-alike substitutions which may escape proofreading. In such instances, original meaning may be extrapolated by contextual derivation. SINCERE Cormier DPM Podiatric Foot & Ankle Surgery documented in this [id number] History of Present illness Narrative* SINCERE Cormier DPM - 07/09/2023 8:15 AM EST Images from the original note were not included. NEW Patient Visit SINCERE Cormier DPM Patient Name: Jaya Hopson. . Date of : 1995, 28 y.o.. Gender: female. Subjective: Patient is a pleasant 28-year-old female who presents to clinic today after sustaining a left ankleinjury last . Patient presented to the emergency room was diagnosed with a posterior malleolus fracture. Was placed in a posterior and sugar-tong splint. She has been nonweightbearing to thisankle since that time. Patient really has minimal pain unless it is touched. Patient denies any current fever, chills, nausea, vomit, chest pain calf pain or shortness of breath. Patient has no otherpedal complaints at this time. Past Medical History: Diagnosis Date Anxiety Asthma Depression Migraine 2016 Past Surgical History: Procedure Laterality Date ADENOIDECTOMY FINGER SURGERY Left Thumb GASTRIC BYPASS 10/2022 [facility] TONSILLECTOMY WISDOM TOOTH EXTRACTION Social History Socioeconomic History Marital status: Single Tobacco Use Smoking status: Never Smokeless tobacco: Never Vaping Use Vaping Use: Never used Substance and Sexual Activity Alcohol use: Never Alcohol/week: 1.0 standard drink of alcohol Types: 1 Standard drinks or equivalent per week Drug use: Never Sexual activity: Not Currently Social History Narrative Merged History Encounter Social Determinants of Health Financial Resource Strain: Low Risk (01/17/2023) Overall Financial Resource Strain (CARDIA) Difficulty of Paying Living Expenses: Not hard at all Food Insecurity: No Food Insecurity (01/17/2023) Hunger Vital Sign Worried About Running Out of Food in the Last Year: Never true Ran Out of Food in the Last Year: Never true Transportation Needs: No Transportation Needs (01/17/2023) PRAPARE - Transportation Lack of Transportation (Medical): No Lack of Transportation (Non-Medical): No Physical Examination: BP 104/73 (BP Location: Left arm, Patient Position: Sitting, BP Cuff Size: X- large Adult) Pulse 70 Temp 98.5 F (36.9 C) (Infrared) LMP 07/02/2023 (Approximate) SpO2 98% General Appearance: Alert, cooperative, no distress, appears stated age. Podiatric Exam Vascular: DP and PT pulses are easily palpable, 2/4. Capillary refill time is brisk to distal digits, less than 3 seconds. Skin temperature is warm to warm from proximal tibial tuberosity to distal digits. No dependent rubor. Neurological: Epicritic and protopathic sensation intact to bilateral lower extremities. Dermatologic: Quality of skin is supple. Nails 1-5 bilaterally are normotrophic. Webspaces 1-4 bilaterally are clean, dry and intact. No hyperkeratoses. No open lesions, rashes or subcutaneous nodules of note. Mild edema noted of the left ankle greater than the right. Musculoskeletal: Bilateral foot and ankle overall rectus alignment. Muscle strength testing deferred today secondary to trauma. Ankle joint range of motion limited with knee extended slightly creasedknee flex. Pain with this. Pain on palpation to the posterior ankle joint. No pain directly to the Achilles tendon or Achilles tendon insertion. Pain on palpation noted to the ATFL. No pain on palpation to the AITFL lateral malleolus peroneal tendons deep deltoid ligament or medial malleolus. Diagnoses: 1. Closed fracture of left ankle, initial encounter 2. Closed fracture of posterior malleolus of left tibia, initial encounter 3. Sprain of left ankle, unspecified ligament, initial encounter 4. Acute left ankle pain Imagin views of the left ankle and 2 views of the foot reviewed today AP MO and lateral of the foot and AP ankle mortise of the ankle. Persistent visualization of nondisplaced posterior malleolus fracturenoted. Ankle mortise is congruent this without any joint space narrowing or widening. Tib-fib overlap is appropriate. Assessment/Plan: Patient was seen and evaluated. Discussed all clinical and radiographic findings. Educated patient on overall nature of injury and process of bone and soft tissue healing. Discussed overall various treatment options available to the patient. Patient is moving forward with conservative treatment in the form of relative cam boot immobilization. Patient may come out of the cam boot for Aguila therapy elevation and icing. Patient should be doing passive range of motion out of the boot to tolerance. Once patient is having less pain she can start to do partial weightbearing in the boot with crutches. Did discuss with patient that secondary to trauma and being young and immobilized she is at increased risk of DVT and PE. Discussed with patient signs and symptoms of this and she should present to the emergency room should any present. Patient does not have any calf pain today and therefore will withhold any type of blood thinners. Patient to follow-up in 3 weeks for interval healing x-rays and reevaluation. This note was partially created using voice recognition software and is inherently subject to errors including those of syntax and sound-alike substitutions which may escape proofreading. In such instances, original meaning may be extrapolated by contextual derivation. SINCERE Cormier DPM Podiatric Foot & Ankle Surgery documented in this [id number] Miscellaneous Notes* Telephone Encounter - Starr Chan - 06/24/2023 11:42 AM EDT Patient last seen on 05/31/23. [facility] [place] History of Present illness Narrative* Ana Tanner NP - 06/21/2023 8:05 AM EDT Images from the original note were not included. HPI, PHYSICAL EXAMINATION & PLAN POST-OP HPI: Patient here today for 6 month post-weight loss surgery follow up LRYGB, HH The patient is feeling well. Denies nausea, vomiting, dysphagia, or any GERD Sx. Currently is not on any PPI. Patient states diet and exercise is going well. Currently is eating 65-75 gm/day protein,and is compliant with prescribed multivitamins and supplements. Drinking around 32 oz daily. Trying new melissa to remind her to drink during the day. Would like to start incorporating exercise. Review of Systems Constitutional: Negative for fatigue and fever. HENT: Negative for congestion, rhinorrhea and trouble swallowing. Respiratory: Negative for cough, chest tightness and shortness of breath. Cardiovascular: Negative for chest pain, palpitations and leg swelling. Gastrointestinal: Negative for abdominal distention, abdominal pain, blood in stool, constipation, diarrhea and nausea. Genitourinary: Negative for dysuria, flank pain, frequency and urgency. Musculoskeletal: Negative for arthralgias, back pain and myalgias. Skin: Negative for color change and rash. Neurological: Negative for light-headedness and headaches. Psychiatric/Behavioral: Negative for dysphoric mood. The patient is not nervous/anxious. Vital signs are stable. Labs were Completed. All labs were: Vitamin B12 >2000 (H) Vitamin D 83.3 (H) Ferritin 189 (H) Hemoglobin 13. WNL Hematocrit 40.6 WNL Iron 89 WNL Physical Examination: BP 121/83 Pulse 67 Temp 36.3 C (97.3 F) Resp 14 Ht 5' 5 (1.651 m) Wt 202 lb 9.6 oz (91.9kg) BMI 33.71 kg/m General: This patient is awake, alert, and oriented, and is in no apparent distress. Cardiac: Regular rate and rhythm without evidence of murmur. Respiratory: Clear to auscultation bilaterally. Abdomen: Obese, soft, non-tender, non-distended without masses/ No evidence of abdominal hernia / Incisions consistent with previous surgeries. Head and Neck: Obese, normocephalic and atraumatic/soft and supple, no lymphadenopathy or obvious bruits. Extremities: No cyanosis, clubbing or edema/ No calf tenderness/No restrictions of movement, is ambulatory without assistance. Neurological: Intact x 4 extremities, no focal deficits notes. Skin: No rashes or lesions noted. Rectal: Deferred Plan: 1). Discussed stopping PPI with patient. Patient is call if any mentioned symptoms return: persistent nausea all day, epigastric pain, pain radiating under either side of rib cage or pain in the middle of their back that is not improving. 2). Labs: abnormal 3). Diet and Exercise: RD discussed diet with patient during office visit. 4). Follow up at 12 month office visit with standard labs. 5). Psych concerns: no 6). If patient is a woman of childrearing age- 18-50. We discussed the importance of contraception during the first 12-18 months post op, and we discussed that fertility will increase following the procedure. Advised patient to discuss with her OBGYN regarding contraception. Patient counseled with good understanding verbalized. 7). Weight loss: Post-op Weight Metrics: %EBWL: % EBWL: 60% Weight Change Since Last Visit: Weight Change: -30.2 lbs Weight Change from Highest Pre-op Weight: Total Weight Change: -100.8 lbs 8). GERD- Improved following LRYGB. Discussed weaning PPI. To continue working to increase hydration to 64 oz goal. To ensure she is eating 5-6x daily with sufficient carbohydrates when beginning exercise. Orders Placed This Encounter Procedures Zinc These orders are set for an approximate date - they can be drawn up to 3 months prior to the Expected Date on this Req. Please send results to: Izabela Rivero MD - [address] [id number] - [phone] And if not done at a [facility], please send to: [place] [address] Patient Name: Jaya [facility] 1995 Order Created by : Aishwarya Mckeon LPN Standing Status: Future Number of Occurrences: 1 Standing Expiration Date: 06/21/2024 Folate These orders are set for an approximate date - they can be drawn up to 3 months prior to the Expected Date on this Req. Please send results to: MD Tarik Haas [address] [id number] - [phone] And if not done at a [facility], please send to: [place] [address] Patient Name: Jaya [facility] 1995 Order Created by : Aishwarya Mckeon LPN Standing Status: Future Number of Occurrences: 1 Standing Expiration Date: 06/21/2024 Iron These orders are set for an approximate date - they can be drawn up to 3 months prior to the Expected Date on this Req. Please send results to: MD Tarik Haas [address] [id number] - [phone] And if not done at a [facility], please send to: [place] [address] [id number] Patient Name: Jaya [facility] 1995 Order Created by : Aishwarya Mckeon LPN Standing Status: Future Number of Occurrences: 1 Standing Expiration Date: 06/21/2024 Ferritin These orders are set for an approximate date - they can be drawn up to 3 months prior to the Expected Date on this Req. Please send results to: MD Tarik Haas [address] [facility] [address] And if not done at a [facility], please send to: [address] [id number] Patient Name: Jaya [place] - 1995 Order Created by : Aishwarya Mckeon LPN Standing Status: Future Number of Occurrences: 1 Standing Expiration Date: 06/21/2024 Magnesium These orders are set for an approximate date - they can be drawn up to 3 months prior to the Expected Date on this Req. Please send results to: MD Tarik Haas [address] [facility] [address] - [phone] And if not done at a [facility], please send to: [address] [place] [address] Patient Name: Jaya [facility] 1995 Order Created by : Aishwarya Mckeon LPN Standing Status: Future Number of Occurrences: 1 Standing Expiration Date: 06/21/2024 Vitamin D Deficiency Screening (Vit D 25) These orders are set for an approximate date - they can be drawn up to 3 months prior to the Expected Date on this Req. Please send results to: MD Tarik Haas [address] [facility] [address] - [phone] And if not done at a [facility], please send to: [address], [address] Patient Name: Jaya [facility] 1995 Order Created by : Aishwarya Mckeon LPN Standing Status: Future Number of Occurrences: 1 Standing Expiration Date: 06/21/2024 Vitamin B12 These orders are set for an approximate date - they can be drawn up to 3 months prior to the Expected Date on this Req. Please send results to: MD Tarik Haas [address] [facility] [address] And if not done at a [facility], please send to: [address] [place] [address] Patient Name: Jaya Hopson 1995 Order Created by : Aishwarya Mckeon LPN Standing Status: Future Number of Occurrences: 1 Standing Expiration Date: 06/21/2024 Vitamin B1, whole blood These orders are set for an approximate date - they can be drawn up to 3 months prior to the Expected Date on this Req. Please send results to: MD Tarik Haas [address] [facility] [address] - [phone] And if not done at a [facility], please send to: [address] [place] [address] Patient Name: Jaya [facility] 1995 Order Created by : Aishwarya Mckeon LPN Standing Status: Future Number of Occurrences: 1 Standing Expiration Date: 06/21/2024 Lipid panel These orders are set for an approximate date - they can be drawn up to 3 months prior to the Expected Date on this Req. Please send results to: MD Tarik Haas [facility] [address] And if not done at a [facility], please send to: [address] [place] [address] Patient Name: Jaya [facility] 1995 Order Created by : Aishwarya Mckeon LPN Standing Status: Future Number of Occurrences: 1 Standing Expiration Date: 06/21/2024 Comprehensive metabolic panel These orders are set for an approximate date - they can be drawn up to 3 months prior to the Expected Date on this Req. Please send results to: Izabela Rivero MD - [address] [facility] [address] - [phone] And if not done at a [facility], please send to: [facility] - [address] [place] [address], [address], [address] Patient Name: Jaya Hopson - 1995 Order Created by : Aishwarya Mckeon LPN Standing Status: Future Number of Occurrences: 1 Standing Expiration Date: 06/21/2024 CBC These orders are set for an approximate date - they can be drawn up to 3 months prior to the Expected Date on this Req. Please send results to: Izabela Rivero MD - [address] [facility] [address] - [phone] And if not done at a [facility], please send to: [facility] - [address] [place] [address], [address] Patient Name: Jaya Hopson - 1995 Order Created by : Aishwarya Mckeon LPN Standing Status: Future Number of Occurrences: 1 Standing Expiration Date: 06/21/2024 Medications ordered during this encounter: Outpatient Encounter Medications as of 06/21/2023 Medication Sig Dispense Refill biotin 5000 MCG tablet Take 5,000 mcg by mouth before bedtime. CALCIUM CITRATE PO Take 500 mg by mouth 3 times daily. cholecalciferol (Vitamin D-3) 100 MCG (4000 UT) capsule Take 1 capsule (100 mcg) by mouth daily. (Patient taking differently: Take 2,000 Units by mouth daily.) 30 capsule 11 Cyanocobalamin (B-12) [address] 500 mcg under the tongue daily. Place 500 mcgunder the tongue to dissolve once daily (Patient taking differently: Place 500 mcg under the tongueevery other day. Place 500 mcg under the tongue to dissolve once daily) 30 tablet 11 Multiple Vitamins-Minerals (CENTRUM WOMEN PO) Take 2 tablets by mouth before bedtime. With Iron . Multiple Vitamins-Iron (One Daily Multivitamin/Iron) tablet Take 1 tablet by mouth 2 times daily. (Patient not taking: Reported on 06/21/2023) 60 tablet 11 [DISCONTINUED] omeprazole (PriLOSEC) [address] capsule Take 1 capsule (20 mg) by mouth daily. Do notcrush or chew. (Patient taking differently: Take 20 mg by mouth daily. Do not crush or chew.) 90 capsule 1 No facility-administered encounter medications on file as of 06/21/2023. Visit Diagnoses: 1. Intestinal malabsorption, unspecified type 2. Deficiency of multiple nutrient elements 3. Class 1 obesity due to excess calories with body mass index (BMI) of 33.0 to 33.9 in adult, unspecified whether serious comorbidity present 4. Hx of gastric bypass Current Medications: Patient's Medications New Prescriptions No medications on file Previous Medications BIOTIN 5000 MCG TABLET Take 5,000 mcg by mouth before bedtime. CALCIUM CITRATE PO Take 500 mg by mouth 3 times daily. CHOLECALCIFEROL (VITAMIN D-3) 100 MCG (4000 UT) CAPSULE Take 1 capsule (100 mcg) by mouth daily. CYANOCOBALAMIN (B-12) [address] 500 mcg under the tongue daily. Place 500 mcgunder the tongue to dissolve once daily MULTIPLE VITAMINS-IRON (ONE DAILY MULTIVITAMIN/IRON) TABLET Take 1 tablet by mouth 2 times daily. MULTIPLE VITAMINS-MINERALS (CENTRUM WOMEN PO) Take 2 tablets by mouth before bedtime. With Iron . Modified Medications No medications on file Discontinued Medications OMEPRAZOLE (PRILOSEC) [address] CAPSULE Take 1 capsule (20 mg) by mouth daily. Do not crush or chew. * Aishwarya Mckeon LPN - 06/21/2023 8:05 AM EDT [facility] PROGRESS [facility] POST WEIGHT LOSS SURGERY FOLLOW UP Patient: Jaya Hopson Service Date: 06/21/2023 Patient is 7 month(s) s/p RnY Gastric Bypass Today's Metrics: Post-Surgical Weight Loss Date: 06/21/23 Height: 5' 5 (165.1 cm) Weight: 202 lb 9.6 oz (91.9 kg) BMI: 33.71 Weight Change: -30.2 lbs Total Weight Change: -100.8 lbs % EBWL: 60% Comments: 7M Pre-op Weight Metrics: Post-op Weight Metrics: %EBWL: % EBWL: 60% Weight Change Since Last Visit: Weight Change: -30.2 lbs Weight Change from Highest Pre-op Weight: Total Weight Change: -100.8 lbs Patient has the following questions: None Reported Pain: Patient rates pain on scale 0-10 as: 0 Exercise Compliance: Exercising: yes If yes: Type: walking Times per week: 5 Min per session: 20-30 minutes Falls Risk Assessment Patient does not take medications which affect BP or mental status Patient does not have newly prescribed or changed dosage of medications within past 30 days which affect BP or mental status Patient has not fallen in the past 2 months Patient does not demonstrate unsteady gait Patient uses the following ambulatory assistive devices: none Patient states the presence of the following traits which increases risk of fall: none Patient is not on home O2 Labs Completed: yes - If NO, patient instructed to get labs drawn today or GIL If YES: Labs completed at [facility]? no If yes see Labs Tab Labs completed at Non-[facility] facility? yes If yes see Encounters Tab - Orders only - Historical Provider - Date: [facility] 06/07/2023 Completed by: Aishwarya Mckeon LPN * Mague Lehman RD - 06/21/2023 8:05 AM EDT [facility] [place] 6 MONTH POST-OPERATIVE DIETITIAN VISIT Patient's weight decreased by: 33.71 lbs Patient does consume 5-6 small meals daily 3-6 Patient s portions are adequate for current diet: -1 cup Protein requirements discussed- currently consuming 60-80 grams protein daily. Current food sources: steak, chicken, turkey, fish, protein pasta, Quest chips, cookies, vegetablesand fruits (apple, plums, pears) when able to eat more, yogurt, cheese, almond milk, cashews, almonds, beans, decaf coffee with protein shake Recommendations: Patient to have smaller, more frequent meals and snacks, increase protein sources in diet Fluid requirements discussed. Current Fluid Intake: ~32 fl oz I definitely need to do more for sure Patient does drink sugar-free, caffeine-free and carbonation-free fluids only. Patient does wait 30 minutes before and after meals to drink Exercise activities discussed. Patient does currently exercise. She was reminded that regular exercise is critical part of a successful outcome following weight loss surgery. Walking 5 days per week - walking at work constantly Behavioral/Emotional changes reviewed. Patient does feel comfortable with changes in eating behaviors and associated emotional changes. She was reminded that psychological counseling is available through the [facility] post-operatively. Recent Nutrient Concerns and Vitamin Supplementation Changes: Labs reviewed - addressed by AURY Bolanos. Refer to TE from 06/17/23 for full communication on recommendations. Patient does report compliance with V/M protocol Notes/Comments: Patient to have smaller, more frequent meals and snacks and increase protein sources in diet; discussed using [employer] melissa and set alarms to remind patient to eat and drink. Patientto increase total hydration to at least 64 fl oz daily. Visit completed by: Mague Lehman MS, RDN, LD documented in this encounterSGerman [id number] Note* Addendum Note - Ana Tanner NP - 06/17/2023 2:19 PM EDTAddended by: ANA TANNER on: 06/17/2023 02:19 PM Modules accepted: Orders [id number] Note* Addendum Note - Ana Tanner NP - 06/17/2023 2:19 PM EDTAddended by: ANA TANNER on: 06/17/2023 02:19 PM Modules accepted: Orders [id number] Note* Addendum Note - Ana Tanner NP - 06/17/2023 2:19 PM EDTAddended by: ANA TANNER on: 06/17/2023 02:19 PM Modules accepted: Orders [id number] Note* Addendum Note - Ana Tanner NP - 06/17/2023 2:19 PM EDTAddended by: ANA TANNER on: 06/17/2023 02:19 PM Modules accepted: Orders [id number] Miscellaneous Notes* Addendum Note - Ana Tanner NP - 06/17/2023 2:19 PM EDTAddended by: ANA TANNER on: 06/17/2023 02:19 PM Modules accepted: Orders * Telephone Encounter - Ana Tanner NP - 06/17/2023 2:18 PM EDT Noted. Orders signed. * Addendum Note - Alaina Bolanos RD - 06/17/2023 1:51 PM EDTAddended by: ALAINA BOLANOS on: 06/17/2023 01:51 PM Modules accepted: Orders * Telephone Encounter - Alaina Bolanos RD - 06/17/2023 1:33 PM EDT Spoke with pt via Farman. Rec taking B12 500 mcg subligual every other day. Rec decreasing vitaminD to 2000 international units gel tablet per day. Rec continue two MV with iron daily- will monitorferritin. Encouraged continuing to work towards 64 ounces of water each day. Rec setting alarm on phone to remember to drink vs purchasing Hidrate Spark water bottle d/t expense however left pt to own discretion. Will plan to recheck pt labs in 3 months. Lab orders pending. * Telephone Encounter - Alaina Bolanos RD - 06/17/2023 11:37 AM EDT EST DOS 11/21/22 [facility] TB Labs: (06/07/23) Vitamin B12 >2000 (H) Vitamin D 83.3 (H) Ferritin 189 (H) Hemoglobin 13. WNL Hematocrit 40.6 WNL Iron 89 WNL Sent pt Farman message regarding abnormal lab values. documented in this encounterSGerman [id number] Telephone encounter Note* Telephone Encounter - Ana Tanner NP - 06/17/2023 2:18 PM EDT Noted. Orders signed. [id number] Note* Addendum Note - Alaina Bolanos RD - 06/17/2023 1:51 PM EDTAddended by: ALAINA BOLANOS on: 06/17/2023 01:51 PM Modules accepted: Orders [address]Saoput80-96-7514 Note* Addendum Note - Alaina Bolanos RD - 06/17/2023 1:51 PM EDTAddended by: ALAINA BOLANOS on: 06/17/2023 01:51 PM Modules accepted: Orders [address]Ycyrvj19-19-0437 Note* Addendum Note - Alaina Bolanos RD - 06/17/2023 1:51 PM EDTAddended by: ALAINA BOLANOS on: 06/17/2023 01:51 PM Modules accepted: Orders [address]Xiuvig11-43-4870 Note* Addendum Note - Alaina Bolanos RD - 06/17/2023 1:51 PM EDTAddended by: ALAINA BOLANOS on: 06/17/2023 01:51 PM Modules accepted: Orders [place] [id number] Telephone encounter Note* Telephone Encounter - Alaina Bolanos RD - 06/17/2023 1:33 PM EDT Spoke with pt via hdtMEDIAt. Rec taking B12 500 mcg subligual every other day. Rec decreasing vitaminD to 2000 international units gel tablet per day. Rec continue two MV with iron daily- will monitorferritin. Encouraged continuing to work towards 64 ounces of water each day. Rec setting alarm on phone to remember to drink vs purchasing Hidrate Spark water bottle d/t expense however left pt to own discretion. Will plan to recheck pt labs in 3 months. Lab orders pending. [facility]Ubnhja48-20-1548 Telephone encounter Note* Telephone Encounter - Alaina Bolanos RD - 06/17/2023 11:37 AM EDT EST DOS 11/21/22 [facility] TB Labs: (06/07/23) Vitamin B12 >2000 (H) Vitamin D 83.3 (H) Ferritin 189 (H) Hemoglobin 13. WNL Hematocrit 40.6 WNL Iron 89 WNL Sent pt hdtMEDIAt message regarding abnormal lab values. [place] [id number] Miscellaneous Notes* Telephone Encounter - Alex Cummins APRN.CNP - 06/11/2023 2:30 PM EDT The following approved medication requests have been transmitted electronically. Requested Prescriptions Signed Prescriptions Disp Refills Syringe-Needle, Safety,Disp Un 3 mL 25 gauge x 1 syrg 100 Each 0 Si syringe as needed (with DHE). Alex Cummins APRN.CNP * Telephone Encounter - Starr Chan - 06/10/2023 10:26 AM EDT Patient last seen on 05/31/23. documented in this encounterSelect [facility] [place] Miscellaneous Notes* Telephone Encounter - Lucero Mcfadden RN - 05/31/2023 11:34 AM EDT Received call to PCP Triage, regarding a medication clarification from pt's pharmacy. Medication: dihydroergotamine (DHE) 1 mg/mL injection Per pharmacy, pt was prescribed Paxlovid on 05/29/2023 (picked up same day) and is a contraindication with DHE injection. Requesting clarification if wishing to hold prescription until Paxlovid courseis completed? Pharmacy callback # [phone] documented in this encounterSelect [facility] [place] History of Present illness Narrative* Marbin Green CNP - 04/18/2023 2:23 PM EDT OFFICE VISIT PROGRESS NOTE HPI patient here for low back pain x 2 days 03/11 no radiation denies numbiness or tingling no bowelor bladder. Lidocaine muscle rub, tylenol with some relief. previous episode 10 years ago. Also headache without visual changes, nausea or vomiting states tylenol with some relief. The following portions of the patient's history were reviewed and updated as appropriate: allergies, current medications and problem list. The patient's surgical, family, and social history was reviewed and updated as appropriate. Review of Systems Review of Systems Constitutional: Negative. Cardiovascular: Negative. Gastrointestinal: Negative for constipation, diarrhea, nausea and vomiting. Genitourinary: Negative. Musculoskeletal: Positive for back pain. Neurological: Positive for headaches. Psychiatric/Behavioral: Negative. Vitals: 04/18/23 1414 BP: 111/80 BP Location: Right arm Patient Position: Sitting BP Cuff Size: X-large Adult Pulse: 60 Resp: 15 Temp: 98.7 F (37.1 C) TempSrc: Temporal SpO2: 98% Weight: 97.9 kg (215 lb 14.4 oz) Height: 5' 5 Body mass index is 35.93 kg/m . Physical Exam Physical Exam Constitutional: General: She is not in acute distress. Appearance: Normal appearance. She is obese. She is not ill-appearing or toxic-appearing. Cardiovascular: Rate and Rhythm: Normal rate and regular rhythm. Pulses: Normal pulses. Heart sounds: Normal heart sounds. Pulmonary: Effort: Pulmonary effort is normal. Breath sounds: Normal breath sounds. Musculoskeletal: General: Tenderness present. Comments: Decreased forward flexion, pain with flexion. Neg SLR, 5/5. DTR +2 Left SI tender Skin: General: Skin is warm. Neurological: Mental Status: She is alert and oriented to person, place, and time. Psychiatric: Mood and Affect: Mood normal. Behavior: Behavior normal. Thought Content: Thought content normal. Judgment: Judgment normal. OARRS/NARxCHECK Report Received and Assessed: No data found Date controlled substance agreement signed: No data found Date of last drug screen: No data found Functional Assessment: No data found Assessment/Plan Problem List Items Addressed This Visit None Visit Diagnoses Acute left-sided low back pain without sciatica - Primary ice, heat stretches and tylenol Relevant Medications cyclobenzaprine (FLEXERIL) 5 MG tablet Cervicogenic headache Return if symptoms worsen or fail to improve, for Next scheduled follow up. If any referrals were placed at today's visit the patient was instructed to call the office if theyhavn't heard anything about the referral within 2 weeks of today's visit. For any new medications prescribed today, patient was educated about indications for the medication, how to take the medication and potential side effects of the medications. Marbin Green CNP documented in this [id number] History of Present illness Narrative* Ana Tanner NP - 02/22/2023 8:05 AM EDT Images from the original note were not included. HPI, PHYSICAL EXAMINATION & PLAN POST-OP HPI: Patient here today for 3 month post-weight loss surgery follow up LRY[facility] HH Repair The patient is feeling well. Denies nausea, vomiting, dysphagia, or any GERD Sx. Currently is on any PPI. Patient states diet and exercise is going well. Currently is eating 65-75 gm/day protein, andis compliant with prescribed multivitamins and supplements. Drinking about 64 oz daily. Exercise- walking 20-30 min daily. Eating 4-5x daily. Review of Systems Constitutional: Negative for fatigue and fever. HENT: Negative for congestion, rhinorrhea and trouble swallowing. Respiratory: Negative for cough, chest tightness and shortness of breath. Cardiovascular: Negative for chest pain, palpitations and leg swelling. Gastrointestinal: Negative for abdominal distention, abdominal pain, blood in stool, constipation, diarrhea and nausea. Genitourinary: Negative for dysuria, flank pain, frequency and urgency. Musculoskeletal: Negative for arthralgias, back pain and myalgias. Skin: Negative for color change and rash. Neurological: Negative for light-headedness and headaches. Psychiatric/Behavioral: Negative for dysphoric mood. The patient is not nervous/anxious. Vital signs are stable. Labs were Completed. All labs were: normal Physical Examination: BP 120/86 Pulse 56 Temp 36.3 C (97.3 F) Resp 16 Ht 5' 5 (1.651 m) Wt 232 lb 12.8 oz (106kg) BMI 38.74 kg/m General: This patient is awake, alert, and oriented, and is in no apparent distress. Cardiac: Regular rate and rhythm without evidence of murmur. Respiratory: Clear to auscultation bilaterally. Abdomen: Obese, soft, non-tender, non-distended without masses/ No evidence of abdominal hernia / Incisions consistent with previous surgeries. Head and Neck: Obese, normocephalic and atraumatic/soft and supple, no lymphadenopathy or obvious bruits. Extremities: No cyanosis, clubbing or edema/ No calf tenderness/No restrictions of movement, is ambulatory without assistance. Neurological: Intact x 4 extremities, no focal deficits notes. Skin: No rashes or lesions noted. Rectal: Deferred Plan: 1) Continue PPI until 6 month office visit 2) Labs: unremarkable 3) Diet and Exercise: Discussed with RD at office visit. 4). Follow up at 6 month office visit with standard labs 5). Psych concerns: no 6). If patient is a woman of childrearing age- 18-50. We discussed the importance of contraception during the first 12-18 months post op, and we discussed that fertility will increase following the procedure. Advised patient to discuss with her OBGYN regarding contraception. Patient counseled with good understanding verbalized. 7). Weight loss: Post-op Weight Metrics: %EBWL: % EBWL: 42% Weight Change Since Last Visit: Weight Change: -26.8 lbs Weight Change from Highest Pre-op Weight: Total Weight Change: -70.6 lbs 8). GERD- Anticipate improvement after Tonio-en-Y. Continue PPI until 6 month POV. Orders Placed This Encounter Procedures Zinc These orders are set for an approximate date - they can be drawn up to 3 months prior to the Expected Date on this Req. Please send results to: Izabela Rivero MD - [address] [facility] [address] - [phone] And if not done at a [facility] Facility, please send to: [place] [address] Patient Name: Jaya [facility] 1995 Order Created by : Renae Scott MA Standing Status: Future Standing Expiration Date: 02/23/2024 Folate These orders are set for an approximate date - they can be drawn up to 3 months prior to the Expected Date on this Req. Please send results to: MD Tarik Haas [address] [facility] [id number] - [phone] And if not done at a [facility] Facility, please send to: [place] [address] Patient Name: Jaya [place] - 1995 Order Created by : Renae Scott MA Standing Status: Future Standing Expiration Date: 02/23/2024 Iron These orders are set for an approximate date - they can be drawn up to 3 months prior to the Expected Date on this Req. Please send results to: Izabela Rivero MD - [address] [facility] [id number] - [phone] And if not done at a [facility] Facility, please send to: [address], [facility] Patient Name: Jaya Hopson - 1995 Order Created by : Renae Scott MA Standing Status: Future Standing Expiration Date: 02/23/2024 Ferritin These orders are set for an approximate date - they can be drawn up to 3 months prior to the Expected Date on this Req. Please send results to: Izabela Rivero MD - [address] [facility] [address] - [phone] And if not done at a [facility] Facility, please send to: [place] [address] Patient Name: Jaya Hopson 1995 Order Created by : Renae Scott MA Standing Status: Future Standing Expiration Date: 02/23/2024 Magnesium These orders are set for an approximate date - they can be drawn up to 3 months prior to the Expected Date on this Req. Please send results to: MD Tarik Haas [address] [facility] [address] - [phone] And if not done at a [facility] Facility, please send to: [address], [facility] Patient Name: Jaya [facility] 1995 Order Created by : Renae Scott MA Standing Status: Future Standing Expiration Date: 02/23/2024 Vitamin D 25 hydroxy These orders are set for an approximate date - they can be drawn up to 3 months prior to the Expected Date on this Req. Please send results to: MD Tarik Haas [address] [facility] [id number] - [phone] And if not done at a [facility] Facility, please send to: [address], [address] Patient Name: Jaya Montanez 1995 Order Created by : Renae Scott MA Standing Status: Future Standing Expiration Date: 02/23/2024 Vitamin B12 These orders are set for an approximate date - they can be drawn up to 3 months prior to the Expected Date on this Req. Please send results to: Izabela Rivero MD - [address] [place] [id number] - [phone] And if not done at a [facility], please send to: [place] [address] Patient Name: Jaya [facility] 1995 Order Created by : Renae Scott MA Standing Status: Future Standing Expiration Date: 02/23/2024 Vitamin B1, whole blood These orders are set for an approximate date - they can be drawn up to 3 months prior to the Expected Date on this Req. Please send results to: Izabela Rivero MD - [address] [place] [address] - [phone] And if not done at a [facility] Facility, please send to: [place] [address] Patient Name: Jaya Hopson 1995 Order Created by : Renae Scott MA Standing Status: Future Standing Expiration Date: 02/23/2024 Lipid panel These orders are set for an approximate date - they can be drawn up to 3 months prior to the Expected Date on this Req. Please send results to: Izabela Rivero MD - [address] [place] [id number] - [phone] And if not done at a [facility] Facility, please send to: [place] [address] Patient Name: Jaya Hopson 1995 Order Created by : Renae Scott MA Standing Status: Future Standing Expiration Date: 02/23/2024 Comprehensive metabolic panel These orders are set for an approximate date - they can be drawn up to 3 months prior to the Expected Date on this Req. Please send results to: Izabela Rivero MD - [address] [facility] [address] - [phone] And if not done at a [facility] Facility, please send to: [address] [address] Patient Name: Jaya Hopson - 1995 Order Created by : Renae Scott MA Standing Status: Future Standing Expiration Date: 02/23/2024 CBC These orders are set for an approximate date - they can be drawn up to 3 months prior to the Expected Date on this Req. Please send results to: Izabela Rivero MD - [address] [facility] [address] - [phone] And if not done at a [facility] Facility, please send to: [place] [id number] Patient Name: Jaya Hopson - 1995 Order Created by : Renae Scott MA Standing Status: Future Standing Expiration Date: 02/23/2024 Medications ordered during this encounter: Outpatient Encounter Medications as of 02/22/2023 Medication Sig Dispense Refill biotin 5000 MCG tablet Take 5,000 mcg by mouth before bedtime. CALCIUM CITRATE PO Take 500 mg by mouth 3 times daily. omeprazole (PriLOSEC) [address] capsule Take 1 capsule (20 mg) by mouth daily. Do not crush or chew.(Patient taking differently: Take 20 mg by mouth daily. Do not crush or chew.) 90 capsule 1 [DISCONTINUED] cholecalciferol (Vitamin D-3) 100 MCG (4000 UT) tablet Take 4,000 Units by mouth daily. [DISCONTINUED] Cyanocobalamin (Vitamin B-12) [address] 1 Dose under the tongue daily. [DISCONTINUED] Pediatric Multivitamins-Iron (CHILDRENS MULTIVITAMIN/IRON PO) Take 2 tablets by mouth daily. cholecalciferol (Vitamin D-3) 100 MCG (4000 UT) capsule Take 1 capsule (100 mcg) by mouth daily. 30capsule 11 Cyanocobalamin (B-12) [address] 500 mcg under the tongue daily. Place 500 mcgunder the tongue to dissolve once daily 30 tablet 11 Multiple Vitamins-Iron (One Daily Multivitamin/Iron) tablet Take 1 tablet by mouth 2 times daily. 60 tablet 11 [] ursodiol (Actigall) 300 MG capsule Take 1 capsule (300 mg) by mouth 2 times daily. 180 capsule 0 [DISCONTINUED] ARIPiprazole (Abilify) 2 MG tablet Take 2 mg by mouth daily. No facility-administered encounter medications on file as of 02/22/2023. Visit Diagnoses: 1. Intestinal malabsorption, unspecified type 2. Deficiency of multiple nutrient elements 3. Class 2 obesity due to excess calories without serious comorbidity with body mass index (BMI) of38.0 to 38.9 in adult Current Medications: Patient's Medications New Prescriptions CHOLECALCIFEROL (VITAMIN D-3) 100 MCG (4000 UT) CAPSULE Take 1 capsule (100 mcg) by mouth daily. CYANOCOBALAMIN (B-12) [address] 500 mcg under the tongue daily. Place 500 mcgunder the tongue to dissolve once daily MULTIPLE VITAMINS-IRON (ONE DAILY MULTIVITAMIN/IRON) TABLET Take 1 tablet by mouth 2 times daily. Previous Medications BIOTIN 5000 MCG TABLET Take 5,000 mcg by mouth before bedtime. CALCIUM CITRATE PO Take 500 mg by mouth 3 times daily. OMEPRAZOLE (PRILOSEC) [address] CAPSULE Take 1 capsule (20 mg) by mouth daily. Do not crush or chew. Modified Medications No medications on file Discontinued Medications ARIPIPRAZOLE (ABILIFY) 2 MG TABLET Take 2 mg by mouth daily. CHOLECALCIFEROL (VITAMIN D-3) 100 MCG (4000 UT) TABLET Take 4,000 Units by mouth daily. CYANOCOBALAMIN (VITAMIN B-12) [address] 1 Dose under the tongue daily. PEDIATRIC MULTIVITAMINS-IRON (CHILDRENS MULTIVITAMIN/IRON PO) Take 2 tablets by mouth daily. * Renae Scott MA - 02/22/2023 8:05 AM EDT [facility] PROGRESS NOTE POST WEIGHT LOSS SURGERY FOLLOW UP Patient: Jaya Hopson Service Date: 02/22/2023 Patient is 3 month(s) s/p RnY Gastric Bypass Today's Metrics: Post-Surgical Weight Loss Date: 02/22/23 Height: 5' 5 (165.1 cm) ([facility]) Weight: 232 lb 12.8 oz (106 kg) ([facility]) BMI: 38.74 Weight Change: -26.8 lbs Total Weight Change: -70.6 lbs % EBWL: 42% Comments: 3M Pre-op Weight Metrics: Post-op Weight Metrics: %EBWL: % EBWL: 42% Weight Change Since Last Visit: Weight Change: -26.8 lbs Weight Change from Highest Pre-op Weight: Total Weight Change: -70.6 lbs Patient has the following questions: None Reported Pain: Patient rates pain on scale 0-10 as: 0 Exercise Compliance: Exercising: yes If yes: Type: walking Times per week: 7 Min per session: 20-30 Falls Risk Assessment Patient does not take medications which affect BP or mental status Patient does not have newly prescribed or changed dosage of medications within past 30 days which affect BP or mental status Patient has not fallen in the past 2 months Patient does not demonstrate unsteady gait Patient uses the following ambulatory assistive devices: none Patient states the presence of the following traits which increases risk of fall: none Patient is not on home O2 Labs Completed: yes - If NO, patient instructed to get labs drawn today or GIL If YES: Labs completed at [facility]? yes If yes see Labs Tab Labs completed at Non-[facility] facility? N/A If yes see Encounters Tab - Orders only - Historical Provider - Date: 02/15/2023 Completed by: Renae Scott MA * Starr Gillespie RD - 02/22/2023 8:05 AM EDT [facility] 3 MONTH POST-OPERATIVE DIETITIAN VISIT Date: 02/22/23 Patient's weight decreased by: 70.6 lbs Patient does consume 5-6 small meals daily; 4-5x Patient s portions are adequate for current diet: -1 cup Protein requirements discussed- currently consuming 65+ grams of protein daily. Current protein sources: chicken, steak, fish, quest products, protein shakes, eggs, cheese, yogurt Recommendations: doing well, some days are better than others Fluid requirements discussed. Current Fluid Intake: close to 64 Patient does drink sugar-free, caffeine-free and carbonation-free fluids only. Patient does waiting 30 minutes before and after meals to drink Exercise activities discussed. Patient does currently exercising. She was reminded that regular exercise is critical part of a successful outcome following weight loss surgery. Behavioral/Emotional changes reviewed. Patient does feel comfortable with changes in eating behaviors and associated emotional changes. She was reminded that psychological counseling is available through the [facility] post-operatively. Patient told she may switch to non-chewable vitamins and calcium citrate. Recent Nutrient Concerns and Vitamin Supplementation Changes: compliant with vitamins, partial labsreviewed, elevated B12/folate. Will monitor Notes/Comments: pt doing well overall, says some days are harder than others food montalvo. To continuewith good diet choices. Visit completed by: Starr Gillespie RD documented in this [id number] History of Present illness Narrative* Sudha Waters CNM - 01/07/2023 8:12 AM EDT This encounter was created in error, please disregard. documented in this [id number] History of Present illness Narrative* Rakesh Salazar MD - 12/25/2022 8:45 AM EDT HPI, PHYSICAL EXAMINATION & PLAN POST-OP HPI: Patient here today for 1 month post-weight loss surgery follow up LRYGB with HH Repair The patient is feeling well. Denies nausea, vomiting, dysphagia, or any GERD Sx. Currently is on a PPI. Patient states diet and exercise is going fairly well. Currently is eating 65-75 gm/day protein, and is compliant with prescribed multivitamins and supplements. Drinking 32 oz daily, eating 4 meals daily. Review of Systems Constitutional: Negative for fatigue and fever. HENT: Negative for congestion, rhinorrhea and trouble swallowing. Respiratory: Negative for cough, chest tightness and shortness of breath. Cardiovascular: Negative for chest pain, palpitations and leg swelling. Gastrointestinal: Negative for abdominal distention, abdominal pain, blood in stool, constipation, diarrhea and nausea. Genitourinary: Negative for dysuria, flank pain, frequency and urgency. Musculoskeletal: Negative for arthralgias, back pain and myalgias. Skin: Negative for color change and rash. Neurological: Negative for light-headedness and headaches. Psychiatric/Behavioral: Negative for dysphoric mood. The patient is not nervous/anxious. Reports hard stools- daily Bms. Vital signs are stable. Labs were Completed All labs were: normal Physical Examination: BP 114/75 Pulse 64 Temp 36.4 C (97.5 F) Resp 16 Ht 5' 5 (1.651 m) Wt 259 lb 9.6 oz (118 kg) BMI 43.20 kg/m General: This patient is awake, alert, and oriented, and is in no apparent distress. Respiratory: Non-labored breathing Abdomen: Obese, soft, non-tender, non-distended without masses/ No evidence of abdominal hernia / Incisions consistent with previous surgeries. Extremities: No cyanosis, clubbing or edema/ No calf tenderness/No restrictions of movement, is ambulatory without assistance. Neurological: Intact x 4 extremities, no focal deficits notes. Skin: No rashes or lesions noted. Rectal: Deferred Surgical site: is:clean, dry, intact, and nontender Drainage from surgical site: none Patient does not have a superficial incisional SSI Current Medications: Patient's Medications New Prescriptions No medications on file Previous Medications ARIPIPRAZOLE (ABILIFY) 2 MG TABLET Take 2 mg by mouth daily. BIOTIN 5000 MCG TABLET Take 5,000 mcg by mouth before bedtime. CALCIUM CITRATE PO Take 500 mg by mouth 3 times daily. CHOLECALCIFEROL (VITAMIN D-3) 100 MCG (4000 UT) TABLET Take 4,000 Units by mouth daily. CYANOCOBALAMIN (VITAMIN B-12) [address] 1 Dose under the tongue daily. OMEPRAZOLE (PRILOSEC) [address] CAPSULE Take 1 capsule (20 mg) by mouth daily. Do not crush or chew. PEDIATRIC MULTIVITAMINS-IRON (CHILDRENS MULTIVITAMIN/IRON PO) Take 2 tablets by mouth daily. URSODIOL (ACTIGALL) 300 MG CAPSULE Take 1 capsule (300 mg) by mouth 2 times daily. Modified Medications No medications on file Discontinued Medications NYSTATIN (MYCOSTATIN) 903376 UNIT/ML SUSPENSION Swish and spit 5 mL (500,000 Units) 3 times daily. Swish and spit 5 mLs by mouth three times daily for 10 days. Medications ordered during this encounter: Outpatient Encounter Medications as of 12/25/2022 Medication Sig Dispense Refill ARIPiprazole (Abilify) 2 MG tablet Take 2 mg by mouth daily. biotin 5000 MCG tablet Take 5,000 mcg by mouth before bedtime. CALCIUM CITRATE PO Take 500 mg by mouth 3 times daily. cholecalciferol (Vitamin D-3) 100 MCG (4000 UT) tablet Take 4,000 Units by mouth daily. Cyanocobalamin (Vitamin B-12) [address] 1 Dose under the tongue daily. omeprazole (PriLOSEC) [address] capsule Take 1 capsule (20 mg) by mouth daily. Do not crush or chew.(Patient taking differently: Take 20 mg by mouth daily. Do not crush or chew.) 90 capsule 1 Pediatric Multivitamins-Iron (CHILDRENS MULTIVITAMIN/IRON PO) Take 2 tablets by mouth daily. ursodiol (Actigall) 300 MG capsule Take 1 capsule (300 mg) by mouth 2 times daily. 180 capsule 0 [] ondansetron (Zofran) 4 MG tablet Take 1 tablet (4 mg) by mouth every 8 hours as needed for nausea or vomiting for up to 20 days. 60 tablet 0 [DISCONTINUED] nystatin (Mycostatin) 870457 UNIT/ML suspension Swish and spit 5 mL (500,000 Units) 3 times daily. Swish and spit 5 mLs by mouth three times daily for 10 days. (Patient not taking: Reported on 12/25/2022) 150 mL 1 No facility-administered encounter medications on file as of 12/25/2022. Orders Placed This Encounter Procedures Zinc Folate Iron Ferritin Magnesium Vitamin B12 Comprehensive metabolic panel CBC Visit Diagnoses: 1. GERD without esophagitis 2. Slow transit constipation 3. Deficiency of multiple nutrient elements 4. Intestinal malabsorption, unspecified type 5. Morbid obesity with BMI of 40.0-44.9, adult (HCC) Plan: 1). Cleared for all activity, no weight restrictions. All incisions healed. 2). Continue PPI until 6 month office visit 3). Labs: unremarkable 4). F/u at 3 month office visit with standard labs 5). Progressing diet as tolerated per RD 6). Psych concerns: No 7). Dysphagia: No 8). If patient is a woman of childrearing age- 18-50. We discussed the importance of contraception during the first 12-18 months post op, and we discussed that fertility will increase following the procedure. Advised patient to discuss with her OBGYN regarding contraception. Patient counseled with good understanding verbalized. 9). Weight loss: Post-op Weight Metrics: %EBWL: % EBWL: 26% Weight Change Since Last Visit: Weight Change: -9.6 lbs Weight Change from Highest Pre-op Weight: Total Weight Change: -43.8 lbs 10). GERD- Denies issues at present time. Will continue PPI until 6 month post- op visit. 11). Slow Transit Constipation- Reporting hard stools. Continue to optimize fluid intake with goal of at least 64 oz daily. Can utilize Colace OTC. Patient met with the dietitian today to review are vitamin and protein recommendations. Increase activity as recommended, the wounds are healed, no evidence of abdominal wall hernias. No nausea vomiting or dysphagia noted. Appropriate bowel function, discussed with her regarding contacting us for any questions or concerns. The lab slip was signed for the next visit, labs were reviewed and are within normal limits. Follow-up 3 months postop. I personally performed the evaluation and management of Jaya Hopson in the development of a treatment plan for this patient. I personally interviewed the patient and performed an individual physical examination. In addition, I discussed the patient's condition and treatment options with them. Ihave also reviewed and agree with the past medical, family and social history unless otherwise noted. All of the patient's questions were answered. Patient Care Team: Steven Rashid as PCP - General Rakesh Salazar MD as Surgeon (General Surgery) * Aishwarya Mckeon LPN - 12/25/2022 8:45 AM EDT [facility] PROGRESS NOTE POST WEIGHT LOSS SURGERY FOLLOW UP Patient: Jaya Hopson Service Date: 12/25/2022 Patient is 1 month(s) s/p RnY Gastric Bypass Today's Metrics: Post-Surgical Weight Loss Date: 12/25/22 Height: 5' 5 (165.1 cm) Weight: 259 lb 9.6 oz (118 kg) BMI: 43.19 Weight Change: -9.6 lbs Total Weight Change: -43.8 lbs % EBWL: 26% Comments: 1M Pre-op Weight Metrics: Post-op Weight Metrics: %EBWL: % EBWL: 26% Weight Change Since Last Visit: Weight Change: -9.6 lbs Weight Change from Highest Pre-op Weight: Total Weight Change: -43.8 lbs Patient has the following questions: None Reported Pain: Patient rates pain on scale 0-10 as: 0 Exercise Compliance: Exercising: yes If yes: Type: walking Times per week: 3-4 times a week Min per session: 20-45 minutes Falls Risk Assessment Patient does not take medications which affect BP or mental status Patient does not have newly prescribed or changed dosage of medications within past 30 days which affect BP or mental status Patient has not fallen in the past 2 months Patient does not demonstrate unsteady gait Patient uses the following ambulatory assistive devices: none Patient states the presence of the following traits which increases risk of fall: none Patient is not on home O2 Labs Completed: yes - If NO, patient instructed to get labs drawn today or GIL If YES: Labs completed at [facility]? no If yes see Labs Tab Labs completed at Non-[facility] facility? yes If yes see Encounters Tab - Orders only - Historical Provider - Date: 12/18/2022 [facility] Completed by: Aishwarya Mckeon LPN * Starr Gillespie RD - 12/25/2022 8:45 AM EDT [facility] 1 MONTH POST-OPERATIVE DIETITIAN VISIT Date: 12/25/22 Current diet reviewed with patient. Soft and maintenance diets discussed and handouts provided. Patient's weight decreased by: 43.19 lbs Patient doesconsume 5-6 small meals daily: 4x Patient s portions are adequate for current diet: -1 cup Protein requirements discussed- currently consuming not tracking grams of protein daily. Current protein sources: chicken, tuna, beef, turkey, peanut butter, yogurt, cheese, eggs Recommendations: track protein, Fluid requirements discussed. Current Fluid Intake: 32oz Patient does drink sugar-free, caffeine-free and carbonation-free fluids only. Patient does wait 30 minutes before and after meals to drink Exercise activities discussed. Patient does currently exercising. She was reminded that regular exercise is critical part of a successful outcome following weight loss surgery. Behavioral/Emotional changes reviewed. Patient does feel comfortable with changes in eating behaviors and associated emotional changes. She was reminded that psychological counseling is available through the [facility] post-operatively. The importance of vitamin supplements has been reviewed and the patient is taking the following: -Multivitamin with minerals and iron -Calcium -Vitamin B12 -Vitamin D3 -Other: Recent Nutrient Concerns and Vitamin Supplementation Changes: compliant with vitamins , labs reviewed WNL Notes/Comments: increase fluids, track/increase protein Visit completed by: Starr Gillsepie RD documented in this [facility]03-28-2023 History of Present illness Narrative* Rakesh Salazar MD - 11/27/2022 7:05 AM EDT Images from the original note were not included. HPI, PHYSICAL EXAMINATION & PLAN POST-OP HPI: Patient here today for 1 week post-weight loss surgery follow up LRYGB with HH Repair Visit Diagnoses: 1. Oral candidiasis 2. Deficiency of multiple nutrient elements 3. Intestinal malabsorption, unspecified type 4. Morbid obesity with BMI of 40.0-44.9, adult (HCC) HPI: The patient is feeling good. Denies nausea, vomiting, dysphagia, or any GERD Sx. Currently Taking is taking a PPI. Patient currently walking. Instructed no lifting heavier than 15lbs until [address] to start supplements. Review of Systems Constitutional: Negative for fatigue and fever. HENT: Negative for congestion, rhinorrhea and trouble swallowing. Respiratory: Negative for cough, chest tightness and shortness of breath. Cardiovascular: Negative for chest pain, palpitations and leg swelling. Gastrointestinal: Negative for abdominal distention, abdominal pain, blood in stool, constipation, diarrhea and nausea. Genitourinary: Negative for dysuria, flank pain, frequency and urgency. Musculoskeletal: Negative for arthralgias, back pain and myalgias. Skin: Negative for color change and rash. Neurological: Negative for light-headedness and headaches. Psychiatric/Behavioral: Negative for dysphoric mood. The patient is not nervous/anxious. Vital signs are stable. Labs were not drawn. Physical Examination: BP 120/84 Pulse 69 Temp 36.6 C (97.9 F) Resp 18 Ht 5' 5 (1.651 m) Wt 269 lb 3.2 oz (122 kg) LMP 11/20/2022 SpO2 100% BMI 44.80 kg/m General: This patient is awake, alert, and oriented, and is in no apparent distress. Respiratory: Non-labored breathing Abdomen: Obese, soft, non-tender, non-distended without masses/ No evidence of abdominal hernia / Incisions consistent with previous surgeries. Head and Neck: Obese, normocephalic and atraumatic/soft and supple Extremities: No cyanosis, clubbing or edema/ No calf tenderness/No restrictions of movement, is ambulatory without assistance. Neurological: Intact x 4 extremities, no focal deficits notes. Skin: No rashes or lesions noted. Rectal: Deferred Surgical site: is:clean, dry, intact, and nontender Drainage from surgical site: none Patient does not have a superficial incisional SSI Plan: Orders Placed This Encounter Procedures Zinc These orders are set for an approximate date - they can be drawn up to 3 months prior to the Expected Date on this Req. Please send results to: Steven Rashid [address] [address] - [phone] And if not done at a [facility] Facility, please send to: [facility] - [address] [place] [address], [address] [facility], [address] Patient Name: Jaya Hopson - 1995 Order Created by : Renae Scott MA Standing Status: Future Standing Expiration Date: 11/28/2023 Folate These orders are set for an approximate date - they can be drawn up to 3 months prior to the Expected Date on this Req. Please send results to: Steven Rashid [address] [id number] - [phone] And if not done at a [facility] Facility, please send to: [place] [address] Patient Name: Jaya Montanez 1995 Order Created by : Renae Scott MA Standing Status: Future Standing Expiration Date: 11/28/2023 Iron These orders are set for an approximate date - they can be drawn up to 3 months prior to the Expected Date on this Req. Please send results to: Steven Dior[address] [id number] - [phone] And if not done at a [facility] Facility, please send to: [place] [address] Patient Name: Jaya Hopson 1995 Order Created by : Renae Scott MA Standing Status: Future Standing Expiration Date: 11/28/2023 Ferritin These orders are set for an approximate date - they can be drawn up to 3 months prior to the Expected Date on this Req. Please send results to: Steven Montanez [address] [place] [id number] - [phone] And if not done at a [facility] Facility, please send to: [address], [facility] Patient Name: Jaya Hopson 1995 Order Created by : Renae Scott MA Standing Status: Future Standing Expiration Date: 11/28/2023 Magnesium These orders are set for an approximate date - they can be drawn up to 3 months prior to the Expected Date on this Req. Please send results to: Steven Baltes - [address] [facility] [address] - [phone] And if not done at a [facility] Facility, please send to: [address], [address] Patient Name: Jaya Hopson - 1995 Order Created by : Renae Scott MA Standing Status: Future Standing Expiration Date: 11/28/2023 Vitamin B12 These orders are set for an approximate date - they can be drawn up to 3 months prior to the Expected Date on this Req. [facility]: [facility] [address] [place] [phone] - [phone] And if not done at a [facility] Facility, please send to: [address], [address] Patient Name: Jaya Hopson 1995 Order Created by : Renae Scott MA Standing Status: Future Standing Expiration Date: 11/28/2023 Comprehensive metabolic panel These orders are set for an approximate date - they can be drawn up to 3 months prior to the Expected Date on this Req. Please send results to: Steven Montanez [facility] [id number] - [phone] And if not done at a [facility] Facility, please send to: [address], [address] Patient Name: Jaya Hopson 1995 Order Created by : Renae Scott MA Standing Status: Future Standing Expiration Date: 11/28/2023 CBC These orders are set for an approximate date - they can be drawn up to 3 months prior to the Expected Date on this Req. Please send results to: Steven Montanez [address] [place] [phone] - [phone] And if not done at a [facility] Facility, please send to: [address] [place], [address] Patient Name: Jaya Hopson - 1995 Order Created by : Renae Scott MA Standing Status: Future Standing Expiration Date: 11/28/2023 Medications ordered during this encounter: Outpatient Encounter Medications as of 11/27/2022 Medication Sig Dispense Refill ARIPiprazole (Abilify) 2 MG tablet Take 2 mg by mouth daily. omeprazole (PriLOSEC) [address] capsule Take 1 capsule (20 mg) by mouth daily. Do not crush or chew.90 capsule 1 ondansetron (Zofran) 4 MG tablet Take 1 tablet (4 mg) by mouth every 8 hours as needed for nausea or vomiting for up to 20 days. 60 tablet 0 oxyCODONE-acetaminophen (Percocet) 5-325 MG tablet Take 1 tablet by mouth every 6 hours as needed for severe pain (7-10) for up to 7 days. 28 tablet 0 CALCIUM CITRATE PO Take 500 mg by mouth 3 times daily. cholecalciferol (Vitamin D-3) 100 MCG (4000 UT) tablet Take 4,000 Units by mouth daily. Cyanocobalamin (Vitamin B-12) [address] 1 Dose under the tongue daily. nystatin (Mycostatin) [id number] UNIT/ML suspension Swish and spit 5 mL (500,000 Units) 3 times daily. Swish and spit 5 mLs by mouth three times daily for 10 days. 150 mL 1 Pediatric Multivitamins-Iron (CHILDRENS MULTIVITAMIN/IRON PO) Take 2 tablets by mouth daily. ursodiol (Actigall) 300 MG capsule Take 1 capsule (300 mg) by mouth 2 times daily. (Patient not taking: Reported on 11/27/2022) 180 capsule 0 [DISCONTINUED] Cholecalciferol (VITAMIN D3 PO) Take 4,000 Int'l Units by mouth before bedtime. [DISCONTINUED] Multiple Vitamins-Minerals (CENTRUM WOMEN PO) Take 1 tablet by mouth before bedtime. [DISCONTINUED] oxyCODONE-acetaminophen (Percocet) 5-325 MG tablet Take 1 tablet by mouth every 6 hours as needed for severe pain (7-10) for up to 5 days. 28 tablet 0 [DISCONTINUED] traZODone (Desyrel) 100 MG tablet Take 100 mg by mouth. [] acetaminophen (Tylenol) tablet 1,000 mg [] ceFAZolin in sodium chloride 0.9% (Ancef) IVPB 3,000 mg [] celecoxib (CeleBREX) capsule 400 mg [] [id number]-yqmbvrdtuzx-gsxnxaipxlz (TAP) syringe [] famotidine (Pepcid) tablet 20 mg [] gabapentin (Neurontin) capsule 100 mg [] heparin injection 5,000 Units [] LORazepam (Ativan) injection 0.5 mg [DISCONTINUED] ALPRAZolam (Xanax) disintegrating tablet 0.25 mg [DISCONTINUED] dexAMETHasone (Decadron) injection [DISCONTINUED] dexmedeTOMIDine in NS (Precedex) 400 mcg in 100 mL (4 mcg/mL) infusion [DISCONTINUED] diphenhydrAMINE (BENADryl) injection 12.5 mg [DISCONTINUED] diphenhydrAMINE (BENADryl) injection 12.5 mg [DISCONTINUED] esmolol (Brevibloc) injection [DISCONTINUED] hydrALAZINE (Apresoline) injection 5 mg [DISCONTINUED] hydrALAZINE (Apresoline) injection 5 mg [DISCONTINUED] HYDROmorphone (Dilaudid) injection 0.25 mg [DISCONTINUED] HYDROmorphone (Dilaudid) injection 0.25 mg [DISCONTINUED] HYDROmorphone (Dilaudid) injection 0.5 mg [DISCONTINUED] HYDROmorphone (Dilaudid) injection 0.5 mg [DISCONTINUED] ketamine (Ketalar) injection [DISCONTINUED] ketamine (Ketalar) injection [DISCONTINUED] labetalol (Normodyne,Trandate) injection 5 mg [DISCONTINUED] labetalol (Normodyne,Trandate) injection 5 mg [DISCONTINUED] lactated Ringer's (LR) infusion [DISCONTINUED] lactated ringers infusion [DISCONTINUED] lactated ringers infusion [DISCONTINUED] lidocaine PF (Xylocaine) 2 % injection [DISCONTINUED] LORazepam (Ativan) injection 0.5 mg [DISCONTINUED] meperidine (Demerol) injection 12.5 mg [DISCONTINUED] meperidine (Demerol) injection 12.5 mg [DISCONTINUED] midazolam (Versed) injection [DISCONTINUED] ondansetron (Zofran) injection 4 mg [DISCONTINUED] ondansetron (Zofran) injection 4 mg [DISCONTINUED] ondansetron (Zofran) injection [DISCONTINUED] oxyCODONE (Roxicodone) immediate release tablet 10 mg [DISCONTINUED] oxyCODONE (Roxicodone) immediate release tablet 10 mg [DISCONTINUED] oxyCODONE (Roxicodone) immediate release tablet 5 mg [DISCONTINUED] oxyCODONE (Roxicodone) immediate release tablet 5 mg [DISCONTINUED] propofol (Diprivan) 10 mg/mL infusion [DISCONTINUED] rocuronium (ZeMuron) injection [DISCONTINUED] sodium chloride 0.9 % bolus 500 mL [DISCONTINUED] sodium chloride 0.9 % bolus 500 mL [DISCONTINUED] sodium chloride 0.9 % infusion [DISCONTINUED] sodium chloride 0.9 % infusion [DISCONTINUED] sodium chloride 0.9 % infusion [DISCONTINUED] sodium chloride 0.9 % infusion [DISCONTINUED] sodium chloride 0.9 % irrigation solution [DISCONTINUED] sodium chloride 0.9% (NS) flush 10 mL [DISCONTINUED] sodium chloride 0.9% (NS) flush 10 mL [DISCONTINUED] sodium chloride 0.9% (NS) flush 10 mL [DISCONTINUED] sodium chloride 0.9% (NS) flush 10 mL [DISCONTINUED] sodium chloride 0.9% (NS) flush 10 mL [DISCONTINUED] sodium chloride 0.9% (NS) flush 10 mL [DISCONTINUED] sodium chloride 0.9% (NS) flush 5-40 mL [DISCONTINUED] sodium chloride 0.9% (NS) flush 5-40 mL [DISCONTINUED] sterile water irrigation solution [DISCONTINUED] succinylcholine (Anectine) injection [DISCONTINUED] sugammadex (Bridion) injection No facility-administered encounter medications on file as of 11/27/2022. 1). Oral Thrush: positive, Rx: 5ml Nystatin swish and spit every 8 hours x 10days 2). Liver Bx: LIVER, WEDGE BIOPSY - UNREMARKABLE LIVER PARENCHYMA. Comment: Sections demonstrafe an intact liver architecture with no evidence of steatosis, ballooning degeneration, lobular activity, or Yamile's hyaline. The portal tracts contain all normal structures without any significant inflammatory infiltrate. Special stains (iron and trichrome) are negative for increased iron storage and fibrosis, respectively. Refer to GI : No 3). Follow up at 1 month office visit with standard labs 4). Patient to see PCP for follow up regarding further management of DM and HTN medications. 5). Continue PPI until 6 month office visit 6). Advance to Pureed diet, RD discussed at office visit 7). Psych concerns: No 8). No lifting >15lbs until 1 month office visit. 9). If patient is a woman of childrearing age- 18-50. We discussed the importance of contraception during the first 12-18 months post op, and we discussed that fertility will increase following the procedure. Advised patient to discuss with her OBGYN regarding contraception. Patient counseled with good understanding verbalized. 10). Weight loss: Post-op Weight Metrics: %EBWL: % EBWL: 20% Weight Change Since Last Visit: Weight Change: -34.2 lbs Weight Change from Highest Pre-op Weight: Total Weight Change: -34.2 lbs 11). Oral Candidiasis- Nystatin called into pharmacy. Discussed administration and avoidance of food or fluids for 30 min after administration. Current Medications: Patient's Medications New Prescriptions NYSTATIN (MYCOSTATIN) 814002 UNIT/ML SUSPENSION Swish and spit 5 mL (500,000 Units) 3 times daily. Swish and spit 5 mLs by mouth three times daily for 10 days. Previous Medications ARIPIPRAZOLE (ABILIFY) 2 MG TABLET Take 2 mg by mouth daily. CALCIUM CITRATE PO Take 500 mg by mouth 3 times daily. CHOLECALCIFEROL (VITAMIN D-3) 100 MCG (4000 UT) TABLET Take 4,000 Units by mouth daily. CYANOCOBALAMIN (VITAMIN B-12) [address] 1 Dose under the tongue daily. OMEPRAZOLE (PRILOSEC) [address] CAPSULE Take 1 capsule (20 mg) by mouth daily. Do not crush or chew. ONDANSETRON (ZOFRAN) 4 MG TABLET Take 1 tablet (4 mg) by mouth every 8 hours as needed for nausea or vomiting for up to 20 days. OXYCODONE-ACETAMINOPHEN (PERCOCET) 5-325 MG TABLET Take 1 tablet by mouth every 6 hours as needed for severe pain (7-10) for up to 7 days. PEDIATRIC MULTIVITAMINS-IRON (CHILDRENS MULTIVITAMIN/IRON PO) Take 2 tablets by mouth daily. URSODIOL (ACTIGALL) 300 MG CAPSULE Take 1 capsule (300 mg) by mouth 2 times daily. Modified Medications No medications on file Discontinued Medications CHOLECALCIFEROL (VITAMIN D3 PO) Take 4,000 Int'l Units by mouth before bedtime. MULTIPLE VITAMINS-MINERALS (CENTRUM WOMEN PO) Take 1 tablet by mouth before bedtime. She met with the dietitian today to review are vitamin and protein recommendations. Increase activity as recommended, the wounds are healed, no evidence of abdominal wall hernias. No nausea vomiting or dysphagia noted. Appropriate bowel function, discussed with her regarding contacting us for any questions or concerns. The lab slip was signed for the next visit. Follow up 1 month postop. I personally performed the evaluation and management of Jaya Hopson in the development of a treatment plan for this patient. I personally interviewed the patient and performed an individual physical examination. In addition, I discussed the patient's condition and treatment options with them. Ihave also reviewed and agree with the past medical, family and social history unless otherwise noted. All of the patient's questions were answered. Patient Care Team: Steven Rashid as PCP - General Rakesh Salazar MD as Surgeon (General Surgery) * Renae Scott MA - 11/27/2022 7:05 AM EDT [facility] POST WEIGHT LOSS SURGERY FOLLOW UP - 1 WEEK Rooming Note Patient: Jaya Hopson Service Date: 11/27/2022 Patient is 1 week s/p Lap RnY Gastric Bypass Pre-Surgical Weight Loss Initial Height: 5' 5 (165.1 cm) Initial Weight: 303 lb 6.4 oz (138 kg) Initial BMI: 50.48 [place] Body Weight: 134 lb (60.8 kg) Surgery Date: 11/21/22 Pre-Surgical Height: 5' 5 (165.1 cm) Pre-Surgical Weight: 303 lb 6.4 oz (138 kg) Pre Surgery BMI: 50.48 Weight to Lose: 169 lb Post-Surgical Weight Loss Date: 11/27/22 Height: 5' 5 (165.1 cm) ([facility]) Weight: 269 lb 3.2 oz (122 kg) ([facility]) BMI: 44.79 Weight Change: -34.2 lbs Total Weight Change: -34.2 lbs % EBWL: 20% Comments: 1W Pain: Patient rates pain on scale 0-10 as: 0 Patient has the following questions: Patient is not diabetic If patient IS Diabetic: Patient spoken with the physician who prescribes their diabetic medications Patient resumed their diabetic medications as directed by their physician Patient advised as follows by physician prescribing diabetic medications: Exercise Compliance: Compliance with recommended current exercise plan of walking/frequent ambulation: yes Falls Risk Assessment Patient does not take medications which affect BP or mental status Patient does not have newly prescribed or changed dosage of medications within past 30 days which affect BP or mental status Patient has not fallen in the past 2 months Patient does not demonstrate unsteady gait Patient uses the following ambulatory assistive devices: none Patient states the presence of the following traits which increases risk of fall: none Patient is low risk for falls. If high or moderate risk, patient instructed not to ambulate independently in the Center, and cord for call light placed within reach of patient. Pre-op Weight Metrics: Date of Initial Surgical Consultation: 02/20/2022 Initial Weight: 303.4lb Initial BMI: 49.72 [place] Body Weight: 134lb Highest Pre-Op Weight: 303.4lb Highest Pre-Op BMI: 49.72 Excess Body Weight: 169lb Test 12.15.22 : Initial Surgical Consultation Post-op Weight Metrics: %EBWL: % EBWL: 20% Weight Change Since Last Visit: Weight Change: -34.2 lbs Weight Change from Highest Pre-op Weight: Total Weight Change: -34.2 lbs Completed by: Renae Scott MA * Annette Griffith RD - 11/27/2022 7:05 AM EDT [facility] 1 WEEK VISIT POST-OPERATIVE DIETITIAN Date: 11/27/22 Protein requirements discussed. Patient to consume 65-75 grams daily. Fluid requirements discussed. Patient to consume 64 oz+ daily. Patient is aware that she must consume fluids 30 mintues before and after meals. Exercise activities discussed with the patient. She doeshave a plan for exercise when cleared. Patient advised that regular exercise is vital to a successful outcome following weight loss surgery. Behavioral/Emotional changes reviewed Patient does feel comfortable with changes in eating behaviors and associated emotional changes. She was reminded that psychological counseling is available through the [facility] post-operatively. The importance of vitamin supplementation has been discussed with patient. She will start the following vitamin supplements today: -Multivitamin with minerals and iron -Calcium -Vitamin B12 -Vitamin D3 -Other: Recent Nutrient Concerns and Vitamin Supplementation Changes: Reviewed vitamin and mineral protocol. Notes/Comments: Pt tolerating full liquid diet well. Reviewed advancement of diet. To begin pureed diet x 10 days, and then advance to the soft diet, and remain on the soft diet until returns for 1 month post-op appointment. To begin Vitamin/mineral protocol. Pt encouraged to call/Mychart with questions. Visit completed by: Annette Griffith RD documented in this [facility]03-23-2023 History of Present illness Narrative* Aishwarya Garcia RN - 11/22/2022 2:00 PM EDT Discharge instructions given to pt. Pt verbalizes understanding. IV removed. Meds to bed brought meds. Pt's mother here to drive her home. * Miladis Ann RN - 11/22/2022 12:33 PM EDT Bariatric printing supervisor Note POD #1-PM S/P LRYGB Patient doing well. Tolerating liquids per protocol: yes Nausea/Vomiting: no If yes, actions taken: Dysphagia: no Vital signs stable. Adequate urine output: Yes Surgical incisions well approximated, dry and without redness. steri-strips LLQ incision with packing in place: Yes If Yes: N/A Bowel movement: No If yes- description: Patient on room air: Yes Patient ambulating: yes Pain adequately controlled: Yes If no, actions taken: Current treatment: percocet Anticipate discharge: today Eunice Ann RN BARIATRIC ENTRY SPECIALIST DISCHARGE NOTE Verbal and written discharge instructions (including office/after hours contact numbers) reviewed with patient and mother. Reviewed diet, activity, home meds, incision care and signs and symptoms of DVT/PE and leak. Patient and family taught regarding home Lovenox administration: not applicable. Patient understands verbal and written information given, all questions answered. Patient is singleand lives with mother and father. Has supportive family who will assist with dc needs at home. Patient independent with ADL s prior to admission. Patient verbalizes understanding of information provided. * Miguelina Alex, CREDIT UNION EXAMINER - 11/22/2022 11:34 AM EDT [facility] Res[facility] Care Department Progress Note As part of the Respiratory Assessment Program (RAP), the following Respiratory Therapist evaluationhas been completed, including a chart review and clinical/physical assessment. Respiratory Therapist RAP Evaluation Guideline Points 0 1 2 3 4 Points Strongly Consider History Factor No Pulmonary conditions Stable Pulmonary condition(s) Surgery or Intervention that may impact Pulmonary system (at risk) Surgery or Intervention that is impacting Pulmonary system Active Exacerbation of Pulmonary Condition 0 Respiratory Pattern Regular, RR= 12-18 WILD or Increased RR= 19-24 Irregular, or RR= 25-30 SOB, talk in short sentences, or RR= 31-35 Severe SOB, accessory muscle use, one word answers, or RR>35 0 Aerosol Med(s), High Flow O2 Breath Sounds Clear Diminished in 1 lobe Diminished in ? 2 lobes Adventitious breath sounds Coarse crackles, Wheezes, or Diminished in >2 lobes 1 Aerosol Med(s), Bronchial Hygiene, Hyperinflation Cough & Sputum Strong cough, no secretion retention or production Weak cough, no secretion retention or production Weak cough, w/ production (less often than Q2hr), or secretion retention No cough, w/ secretion retention or production (less often than Q2hr) Significant secretion production (more often than Q2hr) or mucus plug 0 Aerosol Med(s), Bronchial Hygiene, Hyperinflation Level of Activity Ambulatory Ambulatory with Assist Up in chair or edge of bed (dangle) Non-ambulatory, bedridden with active ROM Completely paralyzed or without active ROM 0 Triage 5 0-2 Triage 4 3-5 Triage 3 6-10 Triage 2 11-14 Triage 1 ?15 Total 1 Triage Score = 1 TRIAGE SCORING - SUGGESTED FREQUENCIES Aerosol Therapy Bronchial Hygiene Hyperinflation Triage Score Q4h & PRN 1 Q4hWA (QID) & PRN 2 TID & PRN 3 BID & PRN 4 PRN 5 Therapy(s) Indicated Yes/No Aerosol Medication no Hyperinflation Bronchial Hygiene High Flow Oxygen Flow Rates PEF (L/Sec) IVC FVC FEV1 FEV1/FVC Patient instructed and returned demonstration on use of MDI (with spacer, as appropriate) RT to enter/modify frequency of treatment order in EMR/EHR to match this RAP evaluation. Based on this RAP evaluation the following therapy is being initiated: At the following frequency: PRN Comments: Pt getting 2000 on IS and walking Thank you for involving Respiratory in the care of this patient, * Radha Ceja MD - 11/22/2022 8:38 AM EDT Images from the original note were not included. [facility] - [facility] Patient Name: Jaya Hopson Date: 11/22/2022 MIS-General Surgery/Bariatric Progress Note Subjective: The patient is doing well, postoperative day #1 from LRYGB. No nausea, vomiting, or adverse events overnight. Scheduled Meds:albuterol, 2.5 mg, Nebulization, 4x daily ARIPiprazole, 2 mg, Oral, Daily enoxaparin, 30 mg, SubCUTAneous, 2 times per day famotidine, 20 mg, Oral, BID ketorolac, 15 mg, IntraVENous, 3 times per day sodium chloride 0.9%, 10 mL, IntraVENous, 2 times per day Continuous Infusions:dextrose 5 % and sodium chloride 0.45 % with KCl 20 mEq/L, 100 mL/hr, Last Rate: 125 mL/hr (11/21/22 1705) PRN Meds:PRN medications: HYDROmorphone OR HYDROmorphone, ondansetron ODT OR ondansetron, oxyCODONE-acetaminophen OR oxyCODONE-acetaminophen, sodium chloride, sodium chloride 0.9% Allergies Allergen Reactions Amoxicillin Hives Objective: Patient Vitals for the past 24 hrs: BP Temp Temp src Pulse Resp SpO2 11/22/22 0500 121/73 36.9 C (98.5 F) Temporal 69 16 99 % 11/22/22 0052 124/83 36.8 C (98.3 F) Temporal 94 14 99 % 11/21/222012 137/83 36.8 C (98.3 F) Temporal 58 16 99 % 11/21/22 1622 (!) 140/86 36.3 C (97.4 F) Temporal 59 20 99 % 11/21/22 1305 139/81 36.6 C (97.9 F) Temporal 55 16 -- 11/21/22 1300 135/88 -- -- 56 22 100 % 11/21/22 1245 124/84 -- -- 64 14 99 % 11/21/22 1230 (!) 130/90 -- -- 63 19 100 % 11/21/22 1215 127/82 -- -- 68 10 100 % 11/21/22 1200 133/79 -- -- 63 15 99 % 11/21/22 1145 138/77 -- -- 78 23 100 % 11/21/22 1130 129/69 -- -- 77 19 100 % 11/21/22 1115 (!) 141/88 -- -- 78 26 100 % 11/21/22 1100 133/83 -- -- 81 15 100 % 11/21/22 1045 138/87 -- -- 85 24 100 % 11/21/22 1041 134/88 36.1 C (97 F) Temporal 88 22 99 % Average, Min, and Max for last 24 hours Vitals: TEMPERATURE: Temp Av.6 C (97.9 F) Min: 36.1 C (97 F) Max: 36.9 C (98.5 F) RESPIRATIONS RANGE: Resp Av.2 Min: 10 Max: 26 PULSE RANGE: Pulse Av Min: 55 Max: 94 BLOOD PRESSURE RANGE: Systolic (24hrs), Av , Min:121 , Max:141 ; Diastolic (24hrs), Av, Min:69, Max:90 PULSE OXIMETRY RANGE: SpO2 Av.5 % Min: 99 % Max: 100 % I/O last 3 completed shifts: In: 1277.8 (9.9 mL/kg) [I.V.:1140.3 (8.8 mL/kg); IV Piggyback:137.5] Out: 325 (2.5 mL/kg) [Urine:300 (0.1 mL/kg/hr); Blood:25] Weight: 129.3 kg CBC: Recent Labs 11/21/22 1053 11/22/22 0302 WBC -- 6.4 HGB 13.6 12.8 HCT 41.1 38.5 PLT -- 103* BMP: Recent Labs 11/21/22 1053 11/22/22 0302 NA 137 138 K 3.9 4.2 CL 108* 108* CO2 18* 19* BUN 12 9 CREATININE 0.88 0.92 GLUCOSE 146* 123* Abdomen: The abdomen was soft and appropriately tender postoperative. Nondistended. Wounds are clean dry and intact. Assessment/Plan: Postoperative day #1, LRYGB GI/DVT prophylaxis, continue SQ Lovenox UGI normal, no signs of extravasation or leak Increase activity Trial gastric bariatric clear liquid diet Pulmonary toilet Initiate home medications, and oral pain control medications Care was discussed with the bariatric nurse outpatient case manager. * Miladis Ann RN - 11/22/2022 8:27 AM EDT Bariatric Armoring Machine Operator Note POD#1- AM S/P LRYGB UGI Done Extravasation: no Delayed gastric emptying: No Begin Bariatric Clear Liquid diet: Yes Diet protocol of one ounce every 30 minutes reviewed with patient Vital signs stable. Adequate urine output: Yes Abdomen soft, non-distended Bowel sounds: hypoactive Surgical incisions well approximated. No redness or drainage steri-strips LLQ incision with packing in place: No Instructed patient on ambulating in halls at least three times a day and hourly use of incentive spirometer. Patient aware to ask for assistance as needed. Call light in reach. SCDs to bilateral lower extremities while in bed. Pain control: Oral pain medication initiated: percocet Home medications reviewed. Will monitor patients tolerance to liquids and oral pain medication. Interventions: No If yes: documented in this [facility]03-23-2023 Hospital course Narrative* Radha Ceja MD - 11/22/2022 1:56 PM EDT Images from the original note were not included. Discharge Summary Jaya Hopson : 1995 ADMIT DATE: 11/21/2022 DISCHARGE DATE: 11/22/22 ATTENDING PHYSICIAN: Rakesh Salazar MD VISIT STATUS: Admission CODE STATUS: Full Code DISCHARGE DIAGNOSES: Principal Problem: Morbid obesity with BMI of 45.0-49.9, adult (CMS/[facility]) ([facility]) BMI Classification: Morbidly Obese (>40.0) HOSPITAL COURSE: Jaya Hopson is a 27 y.o. female who presented to [facility] on 11/21/2022 for elective bariatric surgical procedure. This patient underwent a Laparoscopic Tonio-en-Y Gastric Bypass Procedure on the day ofadmission. An UGI was obtained POD #1 and bariatric clear liquid diet was subsequently started. Thepatient met with bariatric nursing team and was informed thoroughly regarding goals and objectives going forward regarding bariatric protocol and expectations. They were prepared for discharge POD #1. At the time of discharge patient's vital signs were within normal limits. Patient was voiding spontaneously, tolerating a diet, ambulating independently and having bowel function. Patient's pain was controlled with PO pain meds. Pt was discharged with instructions as follows. CONSULTANTS: none SIGNIFICANT DIAGNOSTIC STUDIES: UGI DISCHARGE MEDICATIONS: Medication List START taking these medications ondansetron 4 MG tablet; Commonly known as: Zofran; Take 1 tablet (4 mg) by mouth every 8 hours as needed for nausea or vomiting for up to 20 days. oxyCODONE-acetaminophen 5-325 MG tablet; Commonly known as: Percocet; Take 1 tablet by mouth every 6 hours as needed for severe pain (7-10) for up to 5 days. ASK your doctor about these medications ARIPiprazole 2 MG tablet; Commonly known as: Abilify CENTRUM WOMEN PO omeprazole [address] capsule; Commonly known as: PriLOSEC; Take 1 capsule (20 mg) by mouth daily. Do not crush or chew. traZODone 100 MG tablet; Commonly known as: Desyrel ursodiol 300 MG capsule; Commonly known as: Actigall; Take 1 capsule (300 mg) by mouth 2 times daily. VITAMIN D3 PO DIET: Bariatric Diet Protocol with Clears, instruction for continued diet included in discharge instructions. ACTIVITY: No driving while on narcotic pain medication. No heavy lifting. No strenuous activity. Instructions to proceed will be provided during outpatient follow up. WOUND CARE: keep wound clean and dry DISPOSITION: Home FACILITY/HOME CARE AGENCY NAME: N/A Follow up with: Rakesh Salazar MD in 1-2 weeks PCP: Steven Rashid in 1-2 weeks SIGNED: Binta Hernandez DO 11/21/2022, 2:16 PM documented in this [facility]03-23-2023 History of Present illness Narrative* Flavia Sanders - 11/22/2022 6:15 AM EDT Preliminary negative for leak. documented in this [place] [id number] Note* Perioperative Nursing Note - Kemi Briseno RN - 11/21/2022 3:50 PM EDT Pt pain tolerable, free from nausea. Family at bedside, report [phone] Miscellaneous Notes* Perioperative Nursing Note - Kemi Briseno RN - 11/21/2022 3:50 PM EDT Pt pain tolerable, free from nausea. Family at bedside, report called to GABE Crane * Perioperative Nursing Note - Qi More RN - 11/21/2022 12:06 PM EDT Family updated via [employer] * Perioperative Nursing Note - Qi More RN - 11/21/2022 10:58 AM EDT Family updated * Op Note - Rakesh Salazar MD - 11/21/2022 8:33 AM EDT Images from the original note were not included. Patient: Jaya Hopson Date of : 1995 Service Date: 11/21/2022 PROCEDURE: Laparoscopic Tonio-en-Y Gastric Bypass Laparoscopic Liver Biopsy Esophagogastrojejunoscopy PREOPERATIVE DIAGNOSES: Patient Active Problem List Diagnosis Morbid obesity due to excess calories (HCC) Vitamin D deficiency Hiatal hernia Morbid obesity with BMI of 45.0-49.9, adult (CMS/HCC) (HCC) POSTOPERATIVE DIAGNOSES: Same ANESTHESIA: General SURGEON: Rakesh Salazar MD RISK PREVENTION ENGINEER: Brendan Garcia MD FLUIDS: 1500 cc crystalloid ESTIMATED BLOOD LOSS: 25 cc URINE OUTPUT: Not recorded. PREOPERATIVE MEDICATIONS: Ancef INDICATIONS FOR PROCEDURE: The patient is a 27 y.o. female with morbid obesity and a Body mass index is 47.44 kg/m .. She has completed medical risk stratification and is scheduled for Laparoscopic Tonio-en-Y gastric bypass and laparoscopic liver biopsy. CONSENT: The patient was seen and evaluated in the office setting where the procedure was explainedto the patient and all questions were answered. An informed consent discussion was held between and the patient. Viable alternatives to the proposed procedure, including but not limited to, medical observation under the care of a physician, exercise programs and other weight reductive operative procedures were explained to the patient. Risks to the proposed procedure, including but not limited to hemorrhage requiring transfusion, infection, nerve injury, conversion to open, anastomotic disruption, anastomotic stricture, pneumonia, pulmonary embolus, airway complications, and deathwere explained to the patient. Additionally, we discussed that sometimes a gastric bypass cannot besafely completed due to intraoperative factors and a conversion to a sleeve gastrectomy or complete of a definitive surgical procedure altogether may be necessary. The patient understands the above alternatives and risks and has electively chosen laparoscopic gastric bypass with tonio-en-y reconstruction and wishes to proceed. TECHNIQUE: The patient was taken to the operating room and placed in the supine position. After successful induction of general endotracheal anesthesia by the anesthesia department, an orogastric tube was placed to decompress the stomach. The patient was placed in the split leg lithotomy position and care was taken to pad the exposed extremities. The patient's abdomen was prepped and draped in the normal sterile fashion with chlorhexidine which was allowed to dry for three minutes prior to draping. A 5 mm optical entry trocar was used to enter the left upper quadrant at [place] point. We thenplaced a 5 mm trocar supraumbilically, 5 mm trocar in the left lower quadrant and a 5 mm trocar in the right lower quadrant, all under direct visualization. We then placed a 12 mm trocar in the rightmid abdomen under direct visualization. A stab incision was then made in the sub xyphoid region zully liver retractor was inserted and the liver gently retracted towards the anterior abdominal wall. There was no hiatal hernia grossly visible. We began with creating the small gastric pouch. The lesser sac was entered at the pars flacida and the posterior aspect of the stomach was visualized and there were no adhesions. At this point we released our retraction on the stomach and measured five to seven centimeters from the angle of His along the lesser curvature. We utilized the perigastric technique to enter the lesser sac, sparing the gastric vessel branches and the descending nerve branch. We confirmed that there were no foreign objects in the stomach with the anesthesia team. A 60-mm SAMANTHA stapler with a blue load was used to transect across the stomach in a horizontal fashion. Two additional SAMANTHA blue loads were used to progress cephalad toward the Angle of His to the left of the phrenoesophageal fat pad. A 30-cc gastric pouch was created. We then elevated the transverse colon and ran the biliopancreatic limb 65 cm. We then closed the defect between the small bowel tonio limb and transverse colon mesenteries with a running 2-0 barbed proline suture. The loop of small bowel was then brought up towards the gastric pouch over the colon and sutured to the stomach pouch with a 3-0 vicryl suture. We then opened the small bowel with cautery and the stomach pouch with scissors. The stapler was inserted into the stomach and small intestineto a length of 35 mm on the stapler and a linear gastrojejunostomy was created. We then closed the remaining enterotomy in two layers with a running 3-0 barbed pds suture over a 40 english bougie. We then transected the small intestine just proximal to the gastrojejunostomy on the biliopancreatic limb with a white load endo SAMANTHA 60 mm linear stapler. We then ran the tonio limb 150 cm distally and created a jejunojejunostomy in a side to side fashion with the endo SAMANTHA linear stapler utilizing a white load. The remaining enterotomy was then closed with another firing of the 60 mm white load stapler. Two metallic clips were placed at the anastomosis. We then closed the mesenteric defect of the jejunojejunostomy with a running 2-0 barbed proline suture. Upper GI endoscopy was performed in order to evaluate the integrity of the anastomosis. The Olympusgastroscope was introduced through the mouth, through the esophagus and into the small gastric pouch. The anastomosis was widely patent. The lateral gastric staple line and gastrojejunal anastomosis were hemostatic. The scope easily passed through the anastomosis into the jejunum. The anastomosis was submerged under irrigation and there was no evidence of air extravasation or bubbling at the gastrojejunostomy. Air was removed from the intestine and the scope was removed without incident. The liver had an enlarged appearance as well as a grossly abnormal appearance. For this reason, a liver biopsy was performed with a laparoscopic wedge liver biopsy forceps. We sent two pieces to pathology for permanent sectioning. Bovie electrocautery was used to obtain hepatic hemostasis. We then removed the trocars under visualization and evacuated the pneumoperitoneum. The skin was closed using 4-0 Monocryl in an interruped subcuticular fashion. Steri-Strips were applied to the wounds, the patient was awakened from anesthesia, extubated and taken to recovery in stable condition. The sponge, needle, and instrument counts were correct. [facility] Sheet Start Time: 904 Stop Time: 1014 Site Leasing Agent: [x] Resident [] Fellow [] PA/DRILLING ENGINEERING MANAGER/RELIGIOUS RITUAL SLAUGHTERER [] Attending - Weight Loss Surgeon ASA Class: [] 1 [] 2 [x] 3 []4 [] 5 Surgical Approach: [x] Conventional laparoscopic [] Robotic-assisted [] Open Was the procedure converted to another approach? [] Yes [x] No Was the case aborted? [] Yes [x] No Was a drain placed at the time of the initial operation? [] Yes [x] No Was a swallow study performed the day of or the day after the procedure? [x] Yes [] No Was the anastomotic/staple line checked with a provocative test to assess for leak? [x] Yes [] No Was this a stapling procedure: [x] Yes [] No Other Procedures: EGD Liver Biopsy documented in this [facility]03-22-2023 Hospital Discharge instructions* Discharge Instructions* Starr Gillespie RD - 11/21/2022 2:22 PM EDT Laparoscopic Tonio-en-Y Gastric Bypass Procedure Discharge Instructions You may shower at any point. Blot the incisions dry when you are done. Use only soap and water on the wounds, do not use ointments, lotions, powders or antibiotic ointment. Use elastic binder as you desire. Leave the steri-strips in place (white paper tape over the incisions). They may come off on their own. Do not replace them if they come off. The stitches are buried under the skin and will dissolve on their own. Cover the left lower laparoscopic incision with dry gauze until it is no longer draining. Change the dressing daily. If incisions begin to look infected (swelling, redness, drainage, pain), please notify your RN casemanager. Take your temperature twice a day for the first postoperative week. Call if temperature is >101 F. If you are discharged home with a drain, it will be removed at your first office visit. Daily dressing changes and twice daily emptying of the grenade is required at home. Milking or stripping the tubing should be done 2-3 times daily. You will be given the supplies needed to perform these tasks. If you have a drain, it is also important to observe the color of the drainage in the grenade. The color will guide changer time. Normal color changes include Red - Boyle - [place]/Yellow - [place] and will always be clear in appearance. Abnormal color changes include a caramel color (horne and cloudy), abrown or black appearance or a color change matching the color of what you just drank (mix up your flavors). An abnormal color change requires an immediate phone call to the [facility]. Resume your home medications as directed by your surgeon and your nurse outpatient case manager. Make an appointment with your prescribing physician if you are taking medication for your blood pressure or diabetes. You will need close follow-up regarding your medical conditions, as you will soon be off many of these medications. No aspirin or aspirin containing medications should be taken at all. Do not take multiple medications at one time. Take 2-3 at a time. Wait 20-30 minutes before taking additional medications. Do not take any time release, control release, or extended release medications. This includes any enteric coated medications. Your anatomy has been altered and you no longer have the ability to absorb these medications efficiently. If you have been prescribed any of these types of medications, you should contact the prescribing physician for direction. It will not harm you to take these medications in the interim, however, absorption is questionable. Follow our food guidelines closely. Remember, clear liquids for the first two days after surgery. No sugar, caffeine or carbonation. Your fluid requirement is 64 oz. per day. You may advance to full liquids on post- op day three. This is in addition to the clear liquid diet. Do not take your calcium, vitamin B12, or multivitamin with iron until after your one week appointment. No alcoholic beverages at all during the first 18 months post-op. No lifting. Pushing or pulling over 15 lbs. for one month. You may go up and down stairs. No driving for 1 week after surgery. Do not drive if you are taking prescription pain medication. Walking as part of your daily activities is required immediately. Walking extensively for exercise is not permitted until you are cleared by your surgeon (usually 4-6 weeks after surgery). You will be able to begin exercising in 4-6 weeks, but must be cleared by your surgeon at your one month appointment. Use your incentive spirometer from the hospital for the first postoperative week as instructed, 10 times every other hour while awake. Prior to returning to work, you will be seen, evaluated and cleared by your surgeon. Remember, you will have pain! Take your pain medicine so that you are comfortable enough to cough, deep breath and walk. It is not unusual for lower left abdominal pain to return 10-14 days after surgery. Ice to the area can reduce the discomfort. Fatigue is quite common in the first postoperative week. Rest appropriately in response to this fatigue. Remember that mobility after surgery is very important. You must not remain in a sitting or recumbent position for long periods of time. If you have obstructive sleep apnea and have been prescribed a CPAP machine, you must continue to use this device after surgery. Please call the [facility] at [phone] if you have any questions or concerns during business hours: Saturday through Saturday 8 a.m. to 4:30 p.m. The answering service may be called during non- business hours at [phone]. If you have a medical emergency, call 911 or go to the closest hospital emergency room. Call your surgeon for problems, or if you have any of the following: Temperature >101 F. (Take your temperature twice a day in the morning and evening until your first office visit) Redness. pain, sweating or drainage from any of the incisions Inability to pass urine or have bowel movements ANY shortness of breath, chest pain, leg swelling or leg pain (in one or both of your legs) Rapid heart rate Nausea or vomiting with the inability to keep liquids down Bleeding from your rectum Frequently feeling dizzy or light-headed, inability to walk Abnormal drain color appearance if you have a drain 26. Your one week and one month follow-up office visits with your surgeon at the [facility] are located in the discharge folder [facility] DIETITIAN DISCHARGE INSTRUCTIONS The following information was reviewed with the patient, and the patient was given a hard copy of these instructions by the Bariatric Registered Dietitian. Overview of Post-Op Diet Protocol for Patients Following Gastric Bypass or Sleeve Gastrectomy Your dietitian will meet with you in the hospital before you are discharged to review the diet in more details and to answer any questions you may have, Day of Surgery (after you wake up from surgery) Nothing to eat or drink Post-op Day 1 If you are having an UGI xray, you will begin your clear liquids after you are notified that the results are back and you are cleared to begin If you are NOT having an UGI xray, you will begin your clear liquids as soon as your nurse notifiesyou that it is OK to start. Post-Op Day 2 Continue your bariatric clear liquid diet Post-op Day 3 Begin full liquid diet and continue until after your 1 week post-op visit Full Liquid Diet General Guidelines: 1. Divide food into three (3) small (1/4 cup) meals. 2. Eat the food very slowly, using smaller size utensils. If you feel full, STOP eating. 3. Drink liquids 30 minutes before or 30 minutes after meals and snacks. 4. Do not use a straw. 5. Start tracking your protein intake Foods Allowed In addition to all foods permitted on the clear liquid diet, you may have: Diluted fruit juices that are pulp-free. 2. Low-fat, strained cream soups. 3. Sugar-free strained creamed soups 4. Sugar-free pudding with protein powder 5. Sugar substitutes 6. Thin cooked cereals 7. Low-sugar yogurt without fruit 8. Skim milk or 1% milk 9. Lactaid, soy or almond milk 10. Low-fat or nonfat cottage cheese (mashed with a fork and then chewed thoroughly before swallowing) 11. Protein powder 12. High protein, low-sugar beverages and shakes (see list in Patient Education Manual) You will continue to follow the full liquid diet until after you meet with your dietitian during your 1 week post-op office visit. The next diet phases will be reviewed and discussed with your duringthat visit, If you have questions about your diet(s), please contact the Bariatric Dietitians at [phone]. Reviewed by: Starr Gillespie RD, LD documented in this [facility]German [id number] Note* Perioperative Nursing Note - Qi More RN - 11/21/2022 12:06 PM EDT Family updated via [employer] [id number] Note* Perioperative Nursing Note - Qi More RN - 11/21/2022 10:58 AM EDT Family updated [id number] Note* Addendum Note - David Cason CRNA - 11/21/2022 10:47 AM EDT Addendum created 11/21/22 1047 by David Cason CRNA Clinical Note Signed [id number] Miscellaneous Notes* Addendum Note - David Cason CRNA - 11/21/2022 10:47 AM EDT Addendum created 11/21/22 1047 by David Cason CRNA Clinical Note Signed * Anesthesia Discharge Note - David Cason CRNA - 11/21/2022 10:46 AM EDT Patient: Jaya Hopson Procedure Summary Date: 11/21/22 Room / Location: [address] Operating Room Anesthesia Start: 832 Anesthesia Stop: 104 Procedures: LAPAROSCOPIC TONIO-EN-Y GASTRIC BYPASS WITH LIVER WEDGE BIOPSY, HIATAL HERNIA REPAIR, POSSIBLE OPEN (Abdomen) UNLISTED LAPAROSCOPIC PROCEDURE LIVER (Abdomen) Diagnosis: Morbid (severe) obesity due to excess calories (HCC) (Morbid (severe) obesity due to excess calories (HCC) [E66.01]) Surgeons: Rakesh Salazar MD Responsible Provider: Tan Goff MD Anesthesia Type: general, regional ASA Status: 3 Anesthesia Type: general, regional Vitals Value Taken Time BP 134/88 11/21/22 1042 Temp 36.1 C (97 F) 11/21/22 1041 Pulse 85 11/21/22 1045 Resp 24 11/21/22 1045 SpO2 100 % 11/21/22 1045 Vitals shown include unvalidated device data. Anesthesia Post Evaluation Patient location during evaluation: PACU Patient participation: complete - patient participated Level of consciousness: awake and alert Pain management: satisfactory to patient Airway patency: patent Dental Injury: no Cardiovascular status: acceptable, blood pressure returned to baseline and hemodynamically stable Respiratory status: acceptable and spontaneous ventilation Hydration status: euvolemic Nausea/Vomiting: controlled No notable events documented. Patient can be discharged once all PACU criteria has been met. documented in this [facility]03-22-2023 Note* Anesthesia Discharge Note - David Cason CRNA - 11/21/2022 10:46 AM EDT Patient: Jaya Hopson Procedure Summary Date: 11/21/22 Room / Location: [address] Operating Room Anesthesia Start: 832 Anesthesia Stop: 1041 Procedures: LAPAROSCOPIC TONIO-EN-Y GASTRIC BYPASS WITH LIVER WEDGE BIOPSY, HIATAL HERNIA REPAIR, POSSIBLE OPEN (Abdomen) UNLISTED LAPAROSCOPIC PROCEDURE LIVER (Abdomen) Diagnosis: Morbid (severe) obesity due to excess calories (HCC) (Morbid (severe) obesity due to excess calories (HCC) [E66.01]) Surgeons: Rakesh Salazar MD Responsible Provider: Tan Goff MD Anesthesia Type: general, regional ASA Status: 3 Anesthesia Type: general, regional Vitals Value Taken Time BP 134/88 11/21/22 1042 Temp 36.1 C (97 F) 11/21/22 1041 Pulse 85 11/21/22 1045 Resp 24 11/21/22 1045 SpO2 100 % 11/21/22 1045 Vitals shown include unvalidated device data. Anesthesia Post Evaluation Patient location during evaluation: PACU Patient participation: complete - patient participated Level of consciousness: awake and alert Pain management: satisfactory to patient Airway patency: patent Dental Injury: no Cardiovascular status: acceptable, blood pressure returned to baseline and hemodynamically stable Respiratory status: acceptable and spontaneous ventilation Hydration status: euvolemic Nausea/Vomiting: controlled No notable events documented. Patient can be discharged once all PACU criteria has been met. [id number] Anesthesiology Postoperative evaluation and management note* Anesthesia Postprocedure Evaluation - David Cason CRNA - 11/21/2022 10:46 AM EDT Patient: Jaya Hopson Procedure Summary Date: 11/21/22 Room / Location: [address] Operating Room Anesthesia Start: 08 Anesthesia Stop: 1042 Procedures: LAPAROSCOPIC TONIO-EN-Y GASTRIC BYPASS WITH LIVER WEDGE BIOPSY, HIATAL HERNIA REPAIR, POSSIBLE OPEN (Abdomen) UNLISTED LAPAROSCOPIC PROCEDURE LIVER (Abdomen) Diagnosis: Morbid (severe) obesity due to excess calories (HCC) (Morbid (severe) obesity due to excess calories (HCC) [E66.01]) Surgeons: Rakesh Salazar MD Responsible Provider: Tan Goff MD Anesthesia Type: general, regional ASA Status: 3 Anesthesia Type: general, regional Vitals Value Taken Time BP 134/88 11/21/22 1042 Temp 36.1 C (97 F) 11/21/22 1041 Pulse 85 11/21/22 1045 Resp 24 11/21/22 1045 SpO2 100 % 11/21/22 1045 Vitals shown include unvalidated device data. Anesthesia Post Evaluation Patient location during evaluation: PACU Patient participation: complete - patient participated Level of consciousness: sleepy but conscious Pain management: satisfactory to patient Multimodal analgesia pain management approach Airway patency: patent Two or more strategies used to mitigate risk of obstructive sleep apnea Cardiovascular status: acceptable and hemodynamically stable Respiratory status: acceptable and spontaneous ventilation Hydration status: acceptable No notable events documented. MIPS #430 PONV Patient received an inhalational anesthetic (4554F) Patient exhibits three or more risk factors for PONV (4556F) Patient received at leaset 2 prophylactic Rx PONV anti-emtic agents of different classes preop and/or intraop (G9775) MIPS # 424 Perioperative Temperature Management Anesthesia time was 60 minutes or longer (4255F) Anesthesai administered was General (inhalational or TIVA) or Neuraxial block (X0424) At least one body temperature greater than 95.8F/35.5C achieved within the 30 mins immediately prior to or the 15 minutes immediately following anesthesia end time (G9771) MIPS #477 Multimodal Pain Management Not emergent case Patient was administered multimodal pain management (two or more drugs and/or interventions excluding systemic opioids) in the periopeartive period occurring at some time between 6 hours prior to anesthesia start time until discharged from PACU (G2149) MIPS #404 Anesthesiology Smoking Abstinence The patient is not a current smoker (e.g. cigarette, cigar, pipe, e- cigarette/vaping/marijuana) If no stop here (XX404) I completed my handoff to the receiving clinician during which we: 1. Identified the patient 2. Identified the responsible provider 3. Reviewed the pertinent medical history 4. Discussed the surgical course 5. Reviewed intra-op anesthesia management and issues during anesthesia 6. Set expectations for post-procedure period 7. Allowed opportunity for questions and acknowledgement of understanding. [id number] Surgical operation note* Anesthesia Postprocedure Evaluation - David Cason CRNA - 11/21/2022 10:46 AM EDT Patient: Jaya Hopson Procedure Summary Date: 11/21/22 Room / Location: [facility] Operating Room Anesthesia Start: 832 Anesthesia Stop: 1041 Procedures: LAPAROSCOPIC TONIO-EN-Y GASTRIC BYPASS WITH LIVER WEDGE BIOPSY, HIATAL HERNIA REPAIR, POSSIBLE OPEN (Abdomen) UNLISTED LAPAROSCOPIC PROCEDURE LIVER (Abdomen) Diagnosis: Morbid (severe) obesity due to excess calories (HCC) (Morbid (severe) obesity due to excess calories (HCC) [E66.01]) Surgeons: Rakesh Salazar MD Responsible Provider: Tan Goff MD Anesthesia Type: general, regional ASA Status: 3 Anesthesia Type: general, regional Vitals Value Taken Time BP 134/88 11/21/22 1042 Temp 36.1 C (97 F) 11/21/22 1041 Pulse 85 11/21/22 1045 Resp 24 11/21/22 1045 SpO2 100 % 11/21/22 1045 Vitals shown include unvalidated device data. Anesthesia Post Evaluation Patient location during evaluation: PACU Patient participation: complete - patient participated Level of consciousness: sleepy but conscious Pain management: satisfactory to patient Multimodal analgesia pain management approach Airway patency: patent Two or more strategies used to mitigate risk of obstructive sleep apnea Cardiovascular status: acceptable and hemodynamically stable Respiratory status: acceptable and spontaneous ventilation Hydration status: acceptable No notable events documented. MIPS #430 PONV Patient received an inhalational anesthetic (4554F) Patient exhibits three or more risk factors for PONV (4556F) Patient received at leaset 2 prophylactic Rx PONV anti-emtic agents of different classes preop and/or intraop (G9775) MIPS # 424 Perioperative Temperature Management Anesthesia time was 60 minutes or longer (4255F) Anesthesai administered was General (inhalational or TIVA) or Neuraxial block (X0424) At least one body temperature greater than 95.8F/35.5C achieved within the 30 mins immediately prior to or the 15 minutes immediately following anesthesia end time (G9771) MIPS #477 Multimodal Pain Management Not emergent case Patient was administered multimodal pain management (two or more drugs and/or interventions excluding systemic opioids) in the periopeartive period occurring at some time between 6 hours prior to anesthesia start time until discharged from PACU (G2149) MIPS #404 Anesthesiology Smoking Abstinence The patient is not a current smoker (e.g. cigarette, cigar, pipe, e- cigarette/vaping/marijuana) If no stop here (XX404) I completed my handoff to the receiving clinician during which we: 1. Identified the patient 2. Identified the responsible provider 3. Reviewed the pertinent medical history 4. Discussed the surgical course 5. Reviewed intra-op anesthesia management and issues during anesthesia 6. Set expectations for post-procedure period 7. Allowed opportunity for questions and acknowledgement of understanding. * Anesthesia Procedure Notes - DEE Lockwood CRNA - 11/21/2022 9:39 AM EDT Associated Order(s): Peripheral Block Peripheral Block Time Out: 11/21/2022 8:30 AM Patient location during procedure: Procedural Start time: 11/21/2022 8:31 AM End time: 11/21/2022 8:35 AM Reason for block: at surgeon's request and post-op pain management Staffing Performed: ADIA Resident/FILAMENT MAKER: Idris Benitez Jr., APRN - [facility] Preanesthetic Checklist Completed: patient identified, IV checked, site marked, risks and benefits discussed, surgical consent, monitors and equipment checked, pre-op evaluation and timeout performed Region: [place] Primary: TAP (Bupivacaine 0.375%/ Epi 1:200,000/ Dex 0.1mg/mL 40ml divided evenly bilateral) Secondary: Upper rectus (Bupivacaine 0.375%/ Epi 1:200,000/ Dex 0.1mg/mL 20ml divided evenly bilateral) Peripheral Block Patient position: supine Prep: ChloraPrep Patient monitoring: heart rate, teletypesetter monitor, continuous pulse ox and continuous capnometry O2: ETT/LMA Laterality: bilateral Injection technique: single-shot Guidance: ultrasound guided -image retained in chart, tip of the needle identified by ultraound during injection. Needle Needle: 21G X 110 mm Additional Notes 11/21/2022 8:31 AM Assessment Injection assessment: negative aspiration for heme, no paresthesia on injection and incremental injection Heart rate change: no Slow fractionated injection: yes Required Documentation: Relevant anatomy identified (Nerves, Vessels, Muscles), Negative for blood on aspiration, Local anesthetic injected incrementally with intermittent aspiration every 5 mL, Normal resistance with injection, No EKG changes noted, No symptoms of toxicity, Local anesthetic spreadvisualized around nerves or plane. and Local anesthetic injected without difficultyMedications iiiHWIJXksrqt-smneiroqkpn-ntesopjdixi (TAP) syringe - Injection 60 mL - 11/21/2022 8:31:00 AM * Anesthesia Procedure Notes - David Cason CRNA - 11/21/2022 9:00 AM EDT Associated Order(s): Airway Airway Date/Time: 11/21/2022 8:41 AM Urgency: scheduled General Information and Staff Patient location during procedure: Procedural Resident/FILAMENT MAKER: David Cason CRNA Performed: FILAMENT MAKER Indications and Patient Condition Indications for airway management: anesthesia Sedation level: Asleep and RSI Preoxygenated: yes Patient position: ramp MILS maintained throughout Mask difficulty assessment: 0 - not attempted Final Airway Details Final airway type: endotracheal airway Successful airway: ETT Cuffed: yes Successful intubation technique: direct laryngoscopy Facilitating devices/methods: intubating stylet Endotracheal tube insertion site: oral Blade: Ede Blade size: #3 ETT size (mm): 7.0 Cormack-Lehane Classification: grade I - full view of glottis Placement verified by: chest auscultation and capnometry Measured from: lips ETT to lips (cm): 22 Number of attempts at approach: 1 * Anesthesia Preprocedure Evaluation - Shasta Gandhi, SOLID WASTE MANAGEMENT ENGINEER - FILAMENT MAKER - 11/12/2022 4:23 PM EDT Patient: Jaya Hopson Procedure Information Date/Time: 11/21/22729 Procedures: LAPAROSCOPIC TONIO-EN-Y GASTRIC BYPASS WITH LIVER WEDGE BIOPSY, HIATAL HERNIA REPAIR, POSSIBLE OPEN (Abdomen) UNLISTED LAPAROSCOPIC PROCEDURE LIVER (Abdomen) LAPAROSCOPY REPAIR PARAESOPHAGEAL HERNIA INCLUDING FUNDOPLASTY (Abdomen) Location: [facility] OR [address] [place] [address] Operating Room Surgeons: Rakesh Salazar MD Past Medical History: Past Medical History: No date: Asthma No date: Blurred vision 08/28/2021: COVID-19 vaccine series completed No date: Dizziness No date: Heartburn Comment: mild No date: Joint pain, knee Past Surgical History: Past Surgical History: 04/06/2022: ESOPHAGOGASTRODUODENOSCOPY Comment: Dr. Salazar[facility] 2005: FINGER SURGERY Comment: Repair broken thumb 2000: TONSILLECTOMY (HISTORICAL) 2012: WISDOM TOOTH EXTRACTION Social History: TOBACCO: reports that she has never smoked. She has never used smokeless tobacco. ETOH: reports that she does not currently use alcohol after a past usage of about 1.0 standard drink per week. Social History Substance and Sexual Activity Drug Use Never Family History: Family History Problem Relation Name Age of Onset Other ([address]23) Mother heart problems Hypertension Mother Stroke Father Cancer Father Obesity Father Diabetes Father Colon cancer Paternal Grandfather Cancer Maternal Grandmother Cancer Paternal Grandfather Screening: Having periods Clinical information reviewed: Tobacco Allergies Meds Med Hx Surg Hx OB Status Fam Hx Physical Exam Airway Mallampati: II TM distance: >3 FB Neck ROM: full Mouth Open: normalendotracheal tube not in place Cardiovascular Dental Pulmonary Abdominal Anesthesia Plan ASA 3 general and regional (TAP) The patient is not a current smoker. Anesthetic plan and risks discussed with patient and mother. patient is NPO General ERAS HERMAN Screening - STOP Bang 2 Labs: Lab Results Component Value Date WBC 5.8 11/06/2022 HGB 14.4 11/06/2022 HCT 45.3 11/06/2022 MCV 87.0 11/06/2022 PLT 127 (L) 11/06/2022 Lab Results Component Value Date NA 136 11/06/2022 K 5.2 (H) 11/06/2022 CL 106 11/06/2022 CO2 20 (L) 11/06/2022 BUN 20 (H) 11/06/2022 CREATININE 0.88 11/06/2022 GLUCOSE 67 (L) 11/06/2022 CALCIUM 9.0 11/06/2022 PROT 6.9 04/10/2022 ALKPHOS 61 04/10/2022 AST 26 04/10/2022 EGFR >90.0 11/06/2022 CXR 11/06/2022 FINDINGS: No focal consolidation or pulmonary edema. No pleural effusions or pneumothorax. The cardiac and mediastinal silhouettes are normal. The osseous structures are unremarkable. IMPRESSION: No focal consolidation or pulmonary edema. No echocardiogram results found for the past 14 days 11/06/22 ECG 12-LEAD 11/08/2022 9:07 PM (Final) Impression Sinus rhythm Electronically Signed On 11-08-2022 21:07:44 EST by Shanta Conti Signed by: Shanta Conti MD on 11/08/2022 9:07 PM documented in this [facility]03-22-2023 Procedure anesthesia Narrative* Procedure Summary Procedure Name Responsible Anesthesiologist Anesthesia Start Time Anesthesia Stop Time LAPAROSCOPIC TONIO-EN-Y GASTRIC BYPASS WITH LIVER WEDGE BIOPSY, HIATAL HERNIA REPAIR, POSSIBLE OPEN (Abdomen) Tan Goff MD 11/21/22 0833 11/21/22 1042 Events Date Time Event Comment 11/21/2022 0633 AN Preop Started 0649 0833 In Room 0833 An Start 0836 An Start Data 0840 An Induction The patient was reevaluated immediately before moderate or deep sedation use and before anesthesia induction. 0841 An Intubation 0844 Anesthesia Ready 0905 Proc Start 1035 An Extubation - Spontaneous ventilation - Patient suctioned - Airway removed without difficulty - Spontaneous ventilation maintained 1036 an stop data 1040 Proc Fin 1042 An Stop 1048 Out of Room Meds Name Total midazolam 1 mg/mL 2 mg lidocaine 20 mg/mL 100 mg propofol 10 mg/mL 200 mg rocuronium 70 mg succinylcholine 20 mg/mL 120 mg ondansetron 2 mg/mL 4 mg dexamethasone 10 mg/mL 5 mg sugammadex 200 mg/2mL 200 mg ketamine 10 mg/mL 20 mg ketamine 10 mg/mL 55.27 mg dexmedeTOMIDine (Precedex) 400 mcg/100 m L NS (dye range operator premix) 50.92 mcg ceFAZolin in sodium chloride 0.9% (Ancef ) IVPB 3,000 mg 3,000 mg esmolol (Brevibloc) injection 130 mg yqoVYMNNvfomk-jqqhzjnzvwu-ulvcadoksql (T AP) syringe 60 mL lactated Ringer's (LR) infusion 1,100 mL * Agents Name O2 N2O Air Isoflurane * Blood No blood administrations on file. Lines, Drains, and Airways Type Details Placement Removal Wound/Incision 11/21/22; 914; Incision; Umbilicus 11/21/22 0915 by Jailene Blackman RN Peripheral IV Placement Date: 11/21/22; Placement Time: 1015 (in OR); Catheter Size: 20 G; Orientation: Anterior, Left, Proximal; Location: Forearm; Inserted by: OR 11/21/22 1015 by Qi More RN ETT Placement Date: 11/21/22; Placement Time: 0841 (created via procedure documentation); Mask Ventilation: 0; Technique: Direct laryngoscopy; Type: ETT - single; Single Lumen Tube Size: 7 mm; Cuffed: Yes; Laryngoscope: Ede; Blade Size: 3; Location: Oral; Grade View: Grade I; Insertion Attempts: 1; Placement Verification: Auscultation, Capnometry; Removal Date: 11/21/22; Removal Time: 1035 11/21/22 0841 by David Cason CRNA 11/21/22 1035 by David Cason CRNA documented in this encounter [id number] Anesthesiology procedure note* Anesthesia Procedure Notes - DEE Lockwood CRNA - 11/21/2022 9:39 AM EDTAssociated Order(s): Peripheral Block Peripheral Block Time Out: 11/21/2022 8:30 AM Patient location during procedure: Procedural Start time: 11/21/2022 8:31 AM End time: 11/21/2022 8:35 AM Reason for block: at surgeon's request and post-op pain management Staffing Performed: FILAMENT MAKER Resident/FILAMENT MAKER: DEE Soler Jr., CRNA Preanesthetic Checklist Completed: patient identified, IV checked, site marked, risks and benefits discussed, surgical consent, monitors and equipment checked, pre-op evaluation and timeout performed Region: Truncal Primary: TAP (Bupivacaine 0.375%/ Epi 1:200,000/ Dex 0.1mg/mL 40ml divided evenly bilateral) Secondary: Upper rectus (Bupivacaine 0.375%/ Epi 1:200,000/ Dex 0.1mg/mL 20ml divided evenly bilateral) Peripheral Block Patient position: supine Prep: ChloraPrep Patient monitoring: heart rate, teletypesetter monitor, continuous pulse ox and continuous capnometry O2: ETT/LMA Laterality: bilateral Injection technique: single-shot Guidance: ultrasound guided -image retained in chart, tip of the needle identified by ultraound during injection. Needle Needle: 21G X 110 mm Additional Notes 11/21/2022 8:31 AM Assessment Injection assessment: negative aspiration for heme, no paresthesia on injection and incremental injection Heart rate change: no Slow fractionated injection: yes Required Documentation: Relevant anatomy identified (Nerves, Vessels, Muscles), Negative for blood on aspiration, Local anesthetic injected incrementally with intermittent aspiration every 5 mL, Normal resistance with injection, No EKG changes noted, No symptoms of toxicity, Local anesthetic spreadvisualized around nerves or plane. and Local anesthetic injected without difficultyMedications idbTNGISmesqd-pjojquojllh-rhoaajtlqcn (TAP) syringe - Injection 60 mL - 11/21/2022 8:31:00 AM [facility]03-22-2023 Anesthesiology procedure note* Anesthesia Procedure Notes - David Cason CRNA - 11/21/2022 9:00 AM EDTAssociated Order(s): Airway Airway Date/Time: 11/21/2022 8:41 AM Urgency: scheduled General Information and Staff Patient location during procedure: Procedural Resident/FILAMENT MAKER: David Cason CRNA Performed: FILAMENT MAKER Indications and Patient Condition Indications for airway management: anesthesia Sedation level: Asleep and RSI Preoxygenated: yes Patient position: ramp MILS maintained throughout Mask difficulty assessment: 0 - not attempted Final Airway Details Final airway type: endotracheal airway Successful airway: ETT Cuffed: yes Successful intubation technique: direct laryngoscopy Facilitating devices/methods: intubating stylet Endotracheal tube insertion site: oral Blade: Ede Blade size: #3 ETT size (mm): 7.0 Cormack-Lehane Classification: grade I - full view of glottis Placement verified by: chest auscultation and capnometry Measured from: lips ETT to lips (cm): 22 Number of attempts at approach: 1 [id number] Attending History and physical note* Rakesh Salazar MD - 11/21/2022 8:33 AM EDT Images from the original note were not included. [facility] - Surgery [facility] Physicians Surgery Patient Name: Jaya Hopson Date: 11/21/22 Update History & Physical The patient's History and Physical was reviewed with the patient and there were no significant changes. I examined the patient and there were no significant changes from the previous History and Physical. I verify that the patient's condition and planned treatment has not changed. I also confirm the necessity for the procedure still present. Plan: The risk, benefits, expected outcome, and alternative to the recommended procedure have been discussed with the patient. Patient understands and wants to proceed with the procedure. Source Note - Lucero Bowser NP - 11/12/2022 4:30 PM EDT Images from the original note were not included. Comprehensive PreSurgical History and Physical ? Name: Jaya Hopson : 1995 (Age-27 y.o.) Date of Service: Pt seen/examined on 11/12/2022 Procedure Information Date/Time: 11/21/22 0730 Procedures: LAPAROSCOPIC TONIO-EN-Y GASTRIC BYPASS WITH LIVER WEDGE BIOPSY, HIATAL HERNIA REPAIR, POSSIBLE OPEN (Abdomen) UNLISTED LAPAROSCOPIC PROCEDURE LIVER (Abdomen) LAPAROSCOPY REPAIR PARAESOPHAGEAL HERNIA INCLUDING FUNDOPLASTY (Abdomen) Location: [facility] OR Operating Room Surgeons: Rakesh Salazar MD Chief Complaint: Morbid obesity History Of Present Illness: Case: [id number] Date/Time: 11/21/22 0730 Procedures: LAPAROSCOPIC TONIO-EN-Y GASTRIC BYPASS WITH LIVER WEDGE BIOPSY, HIATAL HERNIA REPAIR, POSSIBLE OPEN (Abdomen) [74276 CPT(R)] UNLISTED LAPAROSCOPIC PROCEDURE LIVER (Abdomen) [61726 CPT(R)] LAPAROSCOPY REPAIR PARAESOPHAGEAL HERNIA INCLUDING FUNDOPLASTY (Abdomen) [46759 CPT(R)] Anesthesia type: General Diagnosis: Morbid (severe) obesity due to excess calories (HCC) [E66.01] Pre-op diagnosis: Morbid (severe) obesity due to excess calories (HCC) [E66.01] Location: [facility] OR Operating Room Surgeons: Rakesh Salazar MD Patient has been following with bariatrics for management of morbid obesity and is going for the above procedure for definitive treatment. They have been through previous screenings and consultationsin preparation for this procedure. ? Denies history of IA, CAD, CHF, TIA, CVA Past Medical History: Past Medical History: No date: Asthma No date: Blurred vision 08/28/2021: COVID-19 vaccine series completed No date: Dizziness No date: Heartburn Comment: mild No date: Joint pain, knee Past Surgical History: Past Surgical History: 04/06/2022: ESOPHAGOGASTRODUODENOSCOPY Comment: Dr. Salazar[facility] 2005: FINGER SURGERY Comment: Repair broken thumb 2000: TONSILLECTOMY (HISTORICAL) 2012: WISDOM TOOTH EXTRACTION Medications Prior to Admission: Prior to Admission medications Medication Sig Start Date End Date Taking? Authorizing Provider ARIPiprazole (Abilify) 2 MG tablet Take 2 mg by mouth daily. Historical Provider, ARIPiprazole (Abilify) 5 MG tablet Take 5 mg by mouth in the morning. 02/15/21 Historical Provider, Cholecalciferol (VITAMIN D3 PO) Take 4,000 Int'l Units by mouth before bedtime. Historical Provider, Multiple Vitamins-Minerals (CENTRUM WOMEN PO) Take 1 tablet by mouth before bedtime. Historical Provider, omeprazole (PriLOSEC) [address] capsule Take 1 capsule (20 mg) by mouth daily. Do not crush or chew.11/06/22 Ana Tanner NP traZODone (Desyrel) 100 MG tablet Take 100 mg by mouth. 03/15/21 Historical Provider, ursodiol (Actigall) 300 MG capsule Take 1 capsule (300 mg) by mouth 2 times daily. 11/06/22 02/04/23 Ana Tanner NP CHRONIC NARCOTIC USE: No Allergies: Amoxicillin Can the patient take acetaminophen: Yes Social History: TOBACCO: reports that she has never smoked. She has never used smokeless tobacco. ETOH: reports that she does not currently use alcohol after a past usage of about 1.0 standard drink per week. Social History Substance and Sexual Activity Drug Use Never Family History: Family History Problem Relation Name Age of Onset Other (80419) Mother heart problems Hypertension Mother Stroke Father Cancer Father Obesity Father Diabetes Father Colon cancer Paternal Grandfather Cancer Maternal Grandmother Cancer Paternal Grandfather REVIEW OF SYSTEMS: Review of Systems Constitutional: Negative for chills and fever. Respiratory: Negative for cough and shortness of breath. Cardiovascular: Negative for chest pain and palpitations. Gastrointestinal: Negative for abdominal pain, diarrhea and vomiting. Genitourinary: Negative for dysuria and hematuria. No concern for Skin: Negative for rash and wound. Neurological: Negative for dizziness and syncope. Physical Exam: Physical Exam Vitals reviewed. Constitutional: Appearance: Normal appearance. HENT: Head: Normocephalic and atraumatic. Right Ear: External ear normal. Left Ear: External ear normal. Nose: Nose normal. Mouth/Throat: Lips: Boyle. Mouth: Mucous membranes are moist. Pharynx: Oropharynx is clear. Cardiovascular: Rate and Rhythm: Normal rate and regular rhythm. Pulses: Radial pulses are 2+ on the right side. Heart sounds: Normal heart sounds. No murmur heard. Pulmonary: Effort: No respiratory distress. Breath sounds: No stridor. No wheezing or rhonchi. Abdominal: General: Bowel sounds are normal. Palpations: Abdomen is soft. Tenderness: There is no abdominal tenderness. Musculoskeletal: Cervical back: Normal range of motion and neck supple. Right lower leg: No edema. Left lower leg: No edema. Comments: Moves all extremities. Skin: General: Skin is warm. Capillary Refill: Capillary refill takes less than 2 seconds. Findings: No rash. Neurological: Mental Status: She is alert and oriented to person, place, and time. Sensory: Sensation is intact. Motor: Motor function is intact. Coordination: Coordination is intact. Psychiatric: Mood and Affect: Mood and affect normal. Vitals: Vitals Value Taken Time BP 134/91 11/12/22 1600 Temp 36 C (96.8 F) 11/12/22 1600 Pulse 108 11/12/22 1600 Resp 16 11/12/22 1600 SpO2 99 % 11/12/22 1600 Labs: Lab Results Component Value Date WBC 5.8 11/06/2022 HGB 14.4 11/06/2022 HCT 45.3 11/06/2022 MCV 87.0 11/06/2022 PLT 127 (L) 11/06/2022 Lab Results Component Value Date NA 136 11/06/2022 K 5.2 (H) 11/06/2022 CL 106 11/06/2022 CO2 20 (L) 11/06/2022 BUN 20 (H) 11/06/2022 CREATININE 0.88 11/06/2022 GLUCOSE 67 (L) 11/06/2022 CALCIUM 9.0 11/06/2022 PROT 6.9 04/10/2022 ALKPHOS 61 04/10/2022 AST 26 04/10/2022 EGFR >90.0 11/06/2022 Lex's Simple Cardiac Risk Index: LEX'S SIMPLE CARDIAC RISK SCORE: 0 Interpretation: 0 Points Class I 0.5% 1 Point Class II 1.3% 2 Points Class III 3.6% 3+ Points Class IV 9.1% METS: >4 METS (Able to climb a flight of stairs with no chest pain or shortness of breath): Yes PAT Pain Score: 0 Postop Pain Management Plan (Pain consult ordered?): Pain consult not indicated at this time ? EKG: ECG Waveforms - Scan on 11/06/2022 2:26 PMECG Waveforms - Scan on 11/06/2022 2:26 PM Interpretation Summary IMPRESSION: Sinus rhythm ECG Measurements QRSD Interval: 76 ms QT Interval: 409 ms QTC Interval: 421 ms Heart Rate: 64 bpm P [place]: 22 degrees QRS [place]: 5 degrees T Wave [place]: 45 degrees ECHO and EF:None on file No components found for: LVEF, LVEFMODE ASSESSMENT/PLAN: Patient is considered low/intermediate risk for this intermediate risk procedure/surgery () with noreducible risk factors. Based on the above evaluation, the benefits of the planned procedure likelyexceed the risks. 1) Morbid obesity - Managed per surgery 2) Asthma - Lungs CTA. No obvious distress on exam. - Continue inhalers day of surgery. - Diagnosed at age 4 and rarely has problems. 3) Thrombocytopenia - platelet count 127 on 11-06-22 Visit Type: Pre-Admission Testing Visit Labs Ordered: NO - COMPLETE PRIOR TO PAT VISIT Sleep Referral Ordered: NO - NEGATIVE SCREEN PER SLEEP REFERRAL PROTOCOL Electronically signed by: Lucero Bowser NP Date: 11/12/2022 at 4:26 PM PAT Protocol referenced includes: 1. Anesthesia Lab Protocol Orders 2. Perioperative Cardiovascular Risk Assessment 3. Anesthesia Assessment 4. Pain Assessment and Acute Pain Service Consult (if appropriate) 5. Medical Clearance/Consult from Internal Medicine (IMS) 6. Shower/Wash Order (for designated surgeries) 7. HERMAN Screen and Sleep Clinic Referral (if appropriate) [place] Phone: [phone] 809-682903-22-2023 Note* Op Note - Rakesh Salazar MD - 11/21/2022 8:33 AM EDT Images from the original note were not included. Patient: Jaya Hopson Date of : 1995 Service Date: 11/21/2022 PROCEDURE: Laparoscopic Tonio-en-Y Gastric Bypass Laparoscopic Liver Biopsy Esophagogastrojejunoscopy PREOPERATIVE DIAGNOSES: Patient Active Problem List Diagnosis Morbid obesity due to excess calories (HCC) Vitamin D deficiency Hiatal hernia Morbid obesity with BMI of 45.0-49.9, adult (CMS/HCC) (HCC) POSTOPERATIVE DIAGNOSES: Same ANESTHESIA: General SURGEON: Rakesh Salazar MD RISK PREVENTION ENGINEER: Brendan Garcia MD FLUIDS: 1500 cc crystalloid ESTIMATED BLOOD LOSS: 25 cc URINE OUTPUT: Not recorded. PREOPERATIVE MEDICATIONS: Ancef INDICATIONS FOR PROCEDURE: The patient is a 27 y.o. female with morbid obesity and a Body mass index is 47.44 kg/m .. She has completed medical risk stratification and is scheduled for Laparoscopic Tonio-en-Y gastric bypass and laparoscopic liver biopsy. CONSENT: The patient was seen and evaluated in the office setting where the procedure was explainedto the patient and all questions were answered. An informed consent discussion was held between and the patient. Viable alternatives to the proposed procedure, including but not limited to, medical observation under the care of a physician, exercise programs and other weight reductive operative procedures were explained to the patient. Risks to the proposed procedure, including but not limited to hemorrhage requiring transfusion, infection, nerve injury, conversion to open, anastomotic disruption, anastomotic stricture, pneumonia, pulmonary embolus, airway complications, and deathwere explained to the patient. Additionally, we discussed that sometimes a gastric bypass cannot besafely completed due to intraoperative factors and a conversion to a sleeve gastrectomy or complete of a definitive surgical procedure altogether may be necessary. The patient understands the above alternatives and risks and has electively chosen laparoscopic gastric bypass with tonio-en-y reconstruction and wishes to proceed. TECHNIQUE: The patient was taken to the operating room and placed in the supine position. After successful induction of general endotracheal anesthesia by the anesthesia department, an orogastric tube was placed to decompress the stomach. The patient was placed in the split leg lithotomy position and care was taken to pad the exposed extremities. The patient's abdomen was prepped and draped in the normal sterile fashion with chlorhexidine which was allowed to dry for three minutes prior to draping. A 5 mm optical entry trocar was used to enter the left upper quadrant at [place] point. We thenplaced a 5 mm trocar supraumbilically, 5 mm trocar in the left lower quadrant and a 5 mm trocar in t he right lower quadrant, all under direct visualization. We then placed a 12 mm trocar in the rightmid abdomen under direct visualization. A stab incision was then made in the sub xyphoid region zully liver retractor was inserted and the liver gently retracted towards the anterior abdominal wall. There was no hiatal hernia grossly visible. We began with creating the small gastric pouch. The lesser sac was entered at the pars flacida and the posterior aspect of the stomach was visualized and there were no adhesions. At this point we released our retraction on the stomach and measured five to seven centimeters from the angle of His along the lesser curvature. We utilized the perigastric technique to enter the lesser sac, sparing the gastric vessel branches and the descending nerve branch. We confirmed that there were no foreign objects in the stomach with the anesthesia team. A 60-mm SAMANTHA stapler with a blue load was used to transect across the stomach in a horizontal fashion. Two additional SAMANTHA blue loads were used to progress cephalad toward the Angle of His to the left of the phrenoesophageal fat pad. A 30-cc gastric pouch was created. We then elevated the transverse colon and ran the biliopancreatic limb 65 cm. We then closed the defect between the small bowel tonio limb and transverse colon mesenteries with a running 2-0 barbed proline suture. The loop of small bowel was then brought up towards the gastric pouch over the colon and sutured to the stomach pouch with a 3-0 vicryl suture. We then opened the small bowel with cautery and the stomach pouch with scissors. The stapler was inserted into the stomach and small intestineto a length of 35 mm on the stapler and a linear gastrojejunostomy was created. We then closed the remaining enterotomy in two layers with a running 3-0 barbed pds suture over a 40 english bougie. We then transected the small intestine just proximal to the gastrojejunostomy on the biliopancreatic limb with a white load endo SAMANTHA 60 mm linear stapler. We then ran the tonio limb 150 cm distally and created a jejunojejunostomy in a side to side fashion with the endo SAMANTHA linear stapler utilizing a white load. The remaining enterotomy was then closed with another firing of the 60 mm white load stapler. Two metallic clips were placed at the anastomosis. We then closed the mesenteric defect of the jejunojejunostomy with a running 2-0 barbed proline suture. Upper GI endoscopy was performed in order to evaluate the integrity of the anastomosis. The Olympusgastroscope was introduced through the mouth, through the esophagus and into the small gastric pouch. The anastomosis was widely patent. The lateral gastric staple line and gastrojejunal anastomosis were hemostatic. The scope easily passed through the anastomosis into the jejunum. The anastomosis was submerged under irrigation and there was no evidence of air extravasation or bubbling at the gastrojejunostomy. Air was removed from the intestine and the scope was removed without incident. The liver had an enlarged appearance as well as a grossly abnormal appearance. For this reason, a liver biopsy was performed with a laparoscopic wedge liver biopsy forceps. We sent two pieces to pathology for permanent sectioning. Bovie electrocautery was used to obtain hepatic hemostasis. We then removed the trocars under visualization and evacuated the pneumoperitoneum. The skin was closed using 4-0 Monocryl in an interruped subcuticular fashion. Steri-Strips were applied to the wounds, the patient was awakened from anesthesia, extubated and taken to recovery in stable condition. The sponge, needle, and instrument counts were correct. [facility] Data Collection Sheet Start Time: 904 Stop Time: 1014 Site Leasing Agent: [x] Resident [] Fellow [] PA/DRILLING ENGINEERING MANAGER/RELIGIOUS RITUAL SLAUGHTERER [] Attending - Weight Loss Surgeon ASA Class: [] 1 [] 2 [x] 3 []4 [] 5 Surgical Approach: [x] Conventional laparoscopic [] Robotic-assisted [] Open Was the procedure converted to another approach? [] Yes [x] No Was the case aborted? [] Yes [x] No Was a drain placed at the time of the initial operation? [] Yes [x] No Was a swallow study performed the day of or the day after the procedure? [x] Yes [] No Was the anastomotic/staple line checked with a provocative test to assess for leak? [x] Yes [] No Was this a stapling procedure: [x] Yes [] No Other Procedures: EGD Liver Biopsy [id number] History and physical note* Rakesh Salazar MD - 11/21/2022 8:33 AM EDT Images from the original note were not included. [facility] - Surgery [facility] Physicians Surgery Patient Name: Jaya Hopson Date: 11/21/22 Update History & Physical The patient's History and Physical was reviewed with the patient and there were no significant changes. I examined the patient and there were no significant changes from the previous History and Physical. I verify that the patient's condition and planned treatment has not changed. I also confirm the necessity for the procedure still present. Plan: The risk, benefits, expected outcome, and alternative to the recommended procedure have been discussed with the patient. Patient understands and wants to proceed with the procedure. Source Note - Lucero Bowser NP - 11/12/2022 4:30 PM EDT Images from the original note were not included. Comprehensive PreSurgical History and Physical ? Name: Jaya Hopson : 1995 (Age-27 y.o.) Date of Service: Pt seen/examined on 11/12/2022 Procedure Information Date/Time: 11/21/22729 Procedures: LAPAROSCOPIC TONIO-EN-Y GASTRIC BYPASS WITH LIVER WEDGE BIOPSY, HIATAL HERNIA REPAIR, POSSIBLE OPEN (Abdomen) UNLISTED LAPAROSCOPIC PROCEDURE LIVER (Abdomen) LAPAROSCOPY REPAIR PARAESOPHAGEAL HERNIA INCLUDING FUNDOPLASTY (Abdomen) Location: [address] Operating Room Surgeons: Rakesh Salazar MD Chief Complaint: Morbid obesity History Of Present Illness: Case: [id number] Date/Time: 11/21/22729 Procedures: LAPAROSCOPIC TONIO-EN-Y GASTRIC BYPASS WITH LIVER WEDGE BIOPSY, HIATAL HERNIA REPAIR, POSSIBLE OPEN (Abdomen) [63445 CPT(R)] UNLISTED LAPAROSCOPIC PROCEDURE LIVER (Abdomen) [72221 CPT(R)] LAPAROSCOPY REPAIR PARAESOPHAGEAL HERNIA INCLUDING FUNDOPLASTY (Abdomen) [79606 CPT(R)] Anesthesia type: General Diagnosis: Morbid (severe) obesity due to excess calories (HCC) [E66.01] Pre-op diagnosis: Morbid (severe) obesity due to excess calories (HCC) [E66.01] Location: [address] Operating Room Surgeons: Rakesh Salazar MD Patient has been following with bariatrics for management of morbid obesity and is going for the above procedure for definitive treatment. They have been through previous screenings and consultationsin preparation for this procedure. ? Denies history of IA, CAD, CHF, TIA, CVA Past Medical History: Past Medical History: No date: Asthma No date: Blurred vision 08/28/2021: COVID-19 vaccine series completed No date: Dizziness No date: Heartburn Comment: mild No date: Joint pain, knee Past Surgical History: Past Surgical History: 04/06/2022: ESOPHAGOGASTRODUODENOSCOPY Comment: Dr. Salazar-[facility] 2004: FINGER SURGERY Comment: Repair broken thumb 2000: TONSILLECTOMY (HISTORICAL) 2012: WISDOM TOOTH EXTRACTION Medications Prior to Admission: Prior to Admission medications Medication Sig Start Date End Date Taking? Authorizing Provider ARIPiprazole (Abilify) 2 MG tablet Take 2 mg by mouth daily. Historical Provider, ARIPiprazole (Abilify) 5 MG tablet Take 5 mg by mouth in the morning. 02/15/21 Historical Provider, Cholecalciferol (VITAMIN D3 PO) Take 4,000 Int'l Units by mouth before bedtime. Historical Provider, Multiple Vitamins-Minerals (CENTRUM WOMEN PO) Take 1 tablet by mouth before bedtime. Historical Provider, omeprazole (PriLOSEC) [address] capsule Take 1 capsule (20 mg) by mouth daily. Do not crush or chew.11/06/22 Ana Tanner NP traZODone (Desyrel) 100 MG tablet Take 100 mg by mouth. 03/15/21 Historical Provider, ursodiol (Actigall) 300 MG capsule Take 1 capsule (300 mg) by mouth 2 times daily. 11/06/22 02/04/23 Ana Tanner NP CHRONIC NARCOTIC USE: No Allergies: Amoxicillin Can the patient take acetaminophen: Yes Social History: TOBACCO: reports that she has never smoked. She has never used smokeless tobacco. ETOH: reports that she does not currently use alcohol after a past usage of about 1.0 standard drink per week. Social History Substance and Sexual Activity Drug Use Never Family History: Family History Problem Relation Name Age of Onset Other ([address]004) Mother heart problems Hypertension Mother Stroke Father Cancer Father Obesity Father Diabetes Father Colon cancer Paternal Grandfather Cancer Maternal Grandmother Cancer Paternal Grandfather REVIEW OF SYSTEMS: Review of Systems Constitutional: Negative for chills and fever. Respiratory: Negative for cough and shortness of breath. Cardiovascular: Negative for chest pain and palpitations. Gastrointestinal: Negative for abdominal pain, diarrhea and vomiting. Genitourinary: Negative for dysuria and hematuria. No concern for Skin: Negative for rash and wound. Neurological: Negative for dizziness and syncope. Physical Exam: Physical Exam Vitals reviewed. Constitutional: Appearance: Normal appearance. HENT: Head: Normocephalic and atraumatic. Right Ear: External ear normal. Left Ear: External ear normal. Nose: Nose normal. Mouth/Throat: Lips: [place]. Mouth: Mucous membranes are moist. Pharynx: Oropharynx is clear. Cardiovascular: Rate and Rhythm: Normal rate and regular rhythm. Pulses: Radial pulses are 2+ on the right side. Heart sounds: Normal heart sounds. No murmur heard. Pulmonary: Effort: No respiratory distress. Breath sounds: No stridor. No wheezing or rhonchi. Abdominal: General: Bowel sounds are normal. Palpations: Abdomen is soft. Tenderness: There is no abdominal tenderness. Musculoskeletal: Cervical back: Normal range of motion and neck supple. Right lower leg: No edema. Left lower leg: No edema. Comments: Moves all extremities. Skin: General: Skin is warm. Capillary Refill: Capillary refill takes less than 2 seconds. Findings: No rash. Neurological: Mental Status: She is alert and oriented to person, place, and time. Sensory: Sensation is intact. Motor: Motor function is intact. Coordination: Coordination is intact. Psychiatric: Mood and Affect: Mood and affect normal. Vitals: Vitals Value Taken Time BP 134/91 11/12/22 1600 Temp 36 C (96.8 F) 11/12/22 1600 Pulse 108 11/12/22 1600 Resp 16 11/12/22 1600 SpO2 99 % 11/12/22 1600 Labs: Lab Results Component Value Date WBC 5.8 11/06/2022 HGB 14.4 11/06/2022 HCT 45.3 11/06/2022 MCV 87.0 11/06/2022 PLT 127 (L) 11/06/2022 Lab Results Component Value Date NA 136 11/06/2022 K 5.2 (H) 11/06/2022 CL 106 11/06/2022 CO2 20 (L) 11/06/2022 BUN 20 (H) 11/06/2022 CREATININE 0.88 11/06/2022 GLUCOSE 67 (L) 11/06/2022 CALCIUM 9.0 11/06/2022 PROT 6.9 04/10/2022 ALKPHOS 61 04/10/2022 AST 26 04/10/2022 EGFR >90.0 11/06/2022 Lex's Simple Cardiac Risk Index: LEX'S SIMPLE CARDIAC RISK SCORE: 0 Interpretation: 0 Points Class I 0.5% 1 Point Class II 1.3% 2 Points Class III 3.6% 3+ Points Class IV 9.1% METS: >4 METS (Able to climb a flight of stairs with no chest pain or shortness of breath): Yes PAT Pain Score: 0 Postop Pain Management Plan (Pain consult ordered?): Pain consult not indicated at this time ? EKG: ECG Waveforms - Scan on 11/06/2022 2:26 PMECG Waveforms - Scan on 11/06/2022 2:26 PM Interpretation Summary IMPRESSION: Sinus rhythm ECG Measurements QRSD Interval: 76 ms QT Interval: 409 ms QTC Interval: 421 ms Heart Rate: 64 bpm P [place]: 22 degrees QRS [place]: 5 degrees T Wave [place]: 45 degrees ECHO and EF:None on file No components found for: LVEF, LVEFMODE ASSESSMENT/PLAN: Patient is considered low/intermediate risk for this intermediate risk procedure/surgery () with noreducible risk factors. Based on the above evaluation, the benefits of the planned procedure likelyexceed the risks. 1) Morbid obesity - Managed per surgery 2) Asthma - Lungs CTA. No obvious distress on exam. - Continue inhalers day of surgery. - Diagnosed at age 4 and rarely has problems. 3) Thrombocytopenia - platelet count 127 on 11-06-22 Visit Type: Pre-Admission Testing Visit Labs Ordered: NO - COMPLETE PRIOR TO PAT VISIT Sleep Referral Ordered: NO - NEGATIVE SCREEN PER SLEEP REFERRAL PROTOCOL Electronically signed by: Lucero Bowser NP Date: 11/12/2022 at 4:26 PM PAT Protocol referenced includes: 1. Anesthesia Lab Protocol Orders 2. Perioperative Cardiovascular Risk Assessment 3. Anesthesia Assessment 4. Pain Assessment and Acute Pain Service Consult (if appropriate) 5. Medical Clearance/Consult from Internal Medicine (IMS) 6. Shower/Wash Order (for designated surgeries) 7. HERMAN Screen and Sleep Clinic Referral (if appropriate) documented in this [facility]03-21-2023 Miscellaneous Notes* Telephone Encounter - Miladis Ann RN - 11/20/2022 2:38 PM EDT Specialty comments updated. * Telephone Encounter - Miguelina Escalante RN - 11/20/2022 1:17 PM EDT Images from the original note were not included. EST DOS 11/19/22 LRYGB W/HH TB AURY Nicole RN; [facility] [address] [place] 38 minutes ago (12:37 PM) LD I'm not sure what she's referencing, I do not see any mychart messages or things like that? Did pt have surgery yesterday or was it moved to tomorrow? It appears pt was to have EGD yesterday and then it was cancelled and has surgery scheduled for tomorrow. If this is the case, the bariatric comment needs updated. * Telephone Encounter - DEE Granados CNP - 11/14/2022 3:56 PM EDT Great, thanks. * Telephone Encounter - Starr Gillespie RD - 11/14/2022 3:04 PM EDT Pt notes likely not taking in enough water. Recommended pt take in 64 oz/day. Pt read mychart message. Will recheck in 3 months orders pended. * Telephone Encounter - Starr Gillespie RD - 11/13/2022 8:01 AM EDT ----- Message from DEE Granados CNP sent at 11/12/2022 6:47 PM EDT ----- Ask her to increase fluids. Cr up just a bit. Thanks, documented in this [facility]03-21-2023 Telephone encounter Note* Telephone Encounter - Miladis Ann RN - 11/20/2022 2:38 PM EDT Specialty comments updated. [facility] [id number] Telephone encounter Note* Telephone Encounter - Migueilna Escalante RN - 11/20/2022 1:17 PM EDT Images from the original note were not included. EST DOS 11/19/22 LRYGB W/HH TB AURY Nicole RN; [facility] [address] 38 minutes ago (12:37 PM) LD I'm not sure what she's referencing, I do not see any mychart messages or things like that? Did pt have surgery yesterday or was it moved to tomorrow? It appears pt was to have EGD yesterday and then it was cancelled and has surgery scheduled for tomorrow. If this is the case, the bariatric comment needs updated. [place] [id number] Telephone encounter Note* Telephone Encounter - DEE Granados CNP - 11/14/2022 3:56 PM EDT Great, thanks. [facility] [employer] Phone: 1(475) 837-642503-15-2023 Miscellaneous Notes* Telephone Encounter - DEE Granados CNP - 11/14/2022 3:56 PM EDT Great, thanks. * Telephone Encounter - Starr Gillespie RD - 11/14/2022 3:04 PM EDT Pt notes likely not taking in enough water. Recommended pt take in 64 oz/day. Pt read mychart message. Will recheck in 3 months orders pended. * Telephone Encounter - Starr Gillespie RD - 11/13/2022 8:01 AM EDT ----- Message from DEE Granados CNP sent at 11/12/2022 6:47 PM EDT ----- Ask her to increase fluids. Cr up just a bit. Thanks, documented in this encounterSGerman [id number] Telephone encounter Note* Telephone Encounter - Starr Gillespie RD - 11/14/2022 3:04 PM EDT Pt notes likely not taking in enough water. Recommended pt take in 64 oz/day. Pt read mychart message. Will recheck in 3 months orders pended. [id number] Telephone encounter Note* Telephone Encounter - Starr Gillespie RD - 11/13/2022 8:01 AM EDT ----- Message from DEE Granados CNP sent at 11/12/2022 6:47 PM EDT ----- Ask her to increase fluids. Cr up just a bit. Thanks, [id number] Anesthesiology Preoperative evaluation and management note* Anesthesia Preprocedure Evaluation - DEE Todd CRNA - 11/12/2022 4:23 PM EDT Patient: Jaya Hopson Procedure Information Date/Time: 11/21/22 4696 Procedures: LAPAROSCOPIC TONIO-EN-Y GASTRIC BYPASS WITH LIVER WEDGE BIOPSY, HIATAL HERNIA REPAIR, POSSIBLE OPEN (Abdomen) UNLISTED LAPAROSCOPIC PROCEDURE LIVER (Abdomen) LAPAROSCOPY REPAIR PARAESOPHAGEAL HERNIA INCLUDING FUNDOPLASTY (Abdomen) Location: [facility] OR Operating Room Surgeons: Rakesh Salazar MD Past Medical History: Past Medical History: No date: Asthma No date: Blurred vision 08/28/2021: COVID-19 vaccine series completed No date: Dizziness No date: Heartburn Comment: mild No date: Joint pain, knee Past Surgical History: Past Surgical History: 04/06/2022: ESOPHAGOGASTRODUODENOSCOPY Comment: Dr. Salazar[facility] 2005: FINGER SURGERY Comment: Repair broken thumb 2000: TONSILLECTOMY (HISTORICAL) 2012: WISDOM TOOTH EXTRACTION Social History: TOBACCO: reports that she has never smoked. She has never used smokeless tobacco. ETOH: reports that she does not currently use alcohol after a past usage of about 1.0 standard drink per week. Social History Substance and Sexual Activity Drug Use Never Family History: Family History Problem Relation Name Age of Onset Other ([address]60) Mother heart problems Hypertension Mother Stroke Father Cancer Father Obesity Father Diabetes Father Colon cancer Paternal Grandfather Cancer Maternal Grandmother Cancer Paternal Grandfather Screening: Having periods Clinical information reviewed: Tobacco Allergies Meds Med Hx Surg Hx OB Status Fam Hx Physical Exam Airway Mallampati: II TM distance: >3 FB Neck ROM: full Mouth Open: normalendotracheal tube not in place Cardiovascular Dental Pulmonary Abdominal Anesthesia Plan ASA 3 general and regional (TAP) The patient is not a current smoker. Anesthetic plan and risks discussed with patient and mother. patient is NPO General ERAS HERMAN Screening - STOP Bang 2 Labs: Lab Results Component Value Date WBC 5.8 11/06/2022 HGB 14.4 11/06/2022 HCT 45.3 11/06/2022 MCV 87.0 11/06/2022 PLT 127 (L) 11/06/2022 Lab Results Component Value Date NA 136 11/06/2022 K 5.2 (H) 11/06/2022 CL 106 11/06/2022 CO2 20 (L) 11/06/2022 BUN 20 (H) 11/06/2022 CREATININE 0.88 11/06/2022 GLUCOSE 67 (L) 11/06/2022 CALCIUM 9.0 11/06/2022 PROT 6.9 04/10/2022 ALKPHOS 61 04/10/2022 AST 26 04/10/2022 EGFR >90.0 11/06/2022 CXR 11/06/2022 FINDINGS: No focal consolidation or pulmonary edema. No pleural effusions or pneumothorax. The cardiac and mediastinal silhouettes are normal. The osseous structures are unremarkable. IMPRESSION: No focal consolidation or pulmonary edema. No echocardiogram results found for the past 14 days 11/06/22 ECG 12-LEAD 11/08/2022 9:07 PM (Final) Impression Sinus rhythm Electronically Signed On 11-08-2022 21:07:44 EST by Shanta Conti Signed by: Shanta Conti MD on 11/08/2022 9:07 PM [facility] [id number] Telephone encounter Note* Telephone Encounter - DEE Granados CNP - 11/09/2022 3:21 PM EST Nothing to add, agree w plan outlined. Thanks!! [facility] Center[facility] Phone: [phone] Miscellaneous Notes* Telephone Encounter - DEE Granados CNP - 11/09/2022 3:21 PM EST Nothing to add, agree w plan outlined. Thanks!! * Telephone Encounter - Starr Gillespie RD - 11/09/2022 2:49 PM EST Pt to decrease high K+ foods. Will recheck levels in 1 week order pended. Pt endorses dizzy/fatigue. Reviewed spreading out CHO intake, how to increase BG if it drops and not skipping meals. * Telephone Encounter - Starr Gillespie RD - 11/09/2022 9:22 AM EST K+: 5.2 (H) * Telephone Encounter - Starr Gillespie RD - 11/09/2022 9:21 AM EST ----- Message from DEE Granados CNP sent at 11/08/2022 4:09 PM EST ----- Slight increase in K. documented in this encounterSGerman [id number] Telephone encounter Note* Telephone Encounter - Starr Gillespie RD - 11/09/2022 2:49 PM EST Pt to decrease high K+ foods. Will recheck levels in 1 week order pended. Pt endorses dizzy/fatigue. Reviewed spreading out CHO intake, how to increase BG if it drops and not skipping meals. [place] [id number] Telephone encounter Note* Telephone Encounter - Starr Gillespie RD - 11/09/2022 9:22 AM EST K+: 5.2 (H) [place] [id number] Telephone encounter Note* Telephone Encounter - Starr Gillespie RD - 11/09/2022 9:21 AM EST ----- Message from DEE Granados CNP sent at 11/08/2022 4:09 PM EST ----- Slight increase in K. [place] [id number] Telephone encounter Note* Telephone Encounter - CRISS Mcleod - 11/08/2022 3:14 PM EST Noted and agree, thanks [facility] [employer] [facility] Phone: [phone] 610-321803-09-2023 Miscellaneous Notes* Telephone Encounter - CRISS Mcleod - 11/08/2022 3:14 PM EST Noted and agree, thanks * Telephone Encounter - Miguelina Escalante RN - 10/30/2022 2:47 PM EST No lovenox DVT P px [x] DVT prophylaxis per final preop visit estimated risk Estimated calculated risk: 0.16 % DVT PPX Risk Factors [] Male [] Age >= 60 years [] BMI >= 50 kg/m^2 [] CHF [] Dyspnea at Rest [] Paraplegia [x] Non-Gastric Band Surgery [] Anticipate Operative Time > 3 hours [] Anticipate Length of Stay >3 days Automatic 4 Weeks of Therapy [] Congenital or Acquired Hypercoagulable Conditions (Factor V Leiden, Prothrombin) [] Past History of DVT or PE [] Significant Chronic Venous Insufficiency Calculated Risk Score: The predicted probability of thirty-day post-discharge VTE 0.16 % Risk % Weeks </> BMI 50 SQ Dose [x] Moderate <0.4% 0 None [] High Risk 0.4% - 1% 2 [] 40 mg Lovenox BID [] 60 mg Lovenox BID [] Very High Risk >1% 4 [] 40 mg Lovenox BID [] 60 mg Lovenox BID documented in this [facility]03-07-2023 History of Present illness Narrative* Rakesh Salazar MD - 11/06/2022 11:00 AM EST Images from the original note were not included. Patient History/Assessment Summary: The patient is a 27 y.o. year old female with morbid obesity, who stands Height: 5' 5 (165.1 cm) ([facility]) tall with a weight of Weight: 286 lb 6.4 oz (130 kg) , resulting in a BMI of Body mass index is47.66 kg/m .. The patient is scheduled to undergo weight loss surgery to treat the following comorbid conditions that are directly associated with or indirectly associated with obesity: Joint pain, knee Past Medical History: Diagnosis Date Asthma Blurred vision COVID-19 vaccine series completed 08/28/2021 Dizziness Heartburn mild Joint pain, knee She attended the weight loss surgery seminar prior to their initial surgical evaluation, and attended pre-op class on . The patient is scheduled for Laparoscopic Tonio-en-Y Gastric Bypass. She is here today to review thedetails of surgery prior to their date of surgery: The patient acknowledges and understands the risks, benefits, and options we have discussed, as outlined in the Additional Informed Consent for this procedure. Patient also understands the importanceof pre and post-operative recommendations, including the Optifast diet and regular post-operative follow up care. The importance of ambulation and incentive spirometry was also discussed. All questions of this patient and any family members present have been answered to their satisfaction. Review of Systems Constitutional: Negative for fatigue and fever. HENT: Negative for congestion, rhinorrhea and trouble swallowing. Respiratory: Negative for cough, chest tightness and shortness of breath. Cardiovascular: Negative for chest pain, palpitations and leg swelling. Gastrointestinal: Negative for abdominal distention, abdominal pain, blood in stool, constipation, diarrhea and nausea. Genitourinary: Negative for dysuria, flank pain, frequency and urgency. Musculoskeletal: Negative for arthralgias, back pain and myalgias. Skin: Negative for color change and rash. Neurological: Negative for light-headedness and headaches. Psychiatric/Behavioral: Negative for dysphoric mood. The patient is not nervous/anxious. Physical Examination: BP 136/81 Pulse 82 Temp 36.8 C (98.3 F) Resp 16 Ht 5' 5 (1.651 m) Comment: BCC Wt 286 lb6.4 oz (130 kg) BMI 47.66 kg/m General: This patient is awake, alert, and oriented, and is in no apparent distress. Cardiac: Regular rate and rhythm without evidence of murmur. Respiratory: Clear to auscultation bilaterally. Abdomen: Obese, soft, non-tender, non-distended without masses/ No evidence of abdominal hernia / Incisions consistent with previous surgeries. Head and Neck: Obese, normocephalic and atraumatic/soft and supple, no lymphadenopathy or obvious bruits. Extremities: No cyanosis, clubbing or edema/ No calf tenderness/No restrictions of movement, is ambulatory without assistance. Neurological: Intact x 4 extremities, no focal deficits notes. Skin: No rashes or lesions noted Surgical History: Past Surgical History: Procedure Laterality Date ESOPHAGOGASTRODUODENOSCOPY 04/06/2022 Dr. Salazar-[facility] FINGER SURGERY 2005 Repair broken thumb LAP GASTRIC BYPASS/TONIO-EN-Y (HISTORICAL) 11/21/2022 TONSILLECTOMY (HISTORICAL) 1999 WISDOM TOOTH EXTRACTION 2011 Recommendations: We spent a great deal of time discussing the risks and benefits of Laparoscopic Tonio-en-Y Gastric Bypass, including but not limited to injury to intra-abdominal organs, breakdown of the gastric staple line, the need for re-operative therapy, prolonged hospitalization, mechanical ventilation, and . We discussed the possibility of bleeding, the need for blood transfusions, blood clots, hospital-acquired and intra-abdominal infection, anastomotic stricture, and worsening GERD. And we discussed the need for post-operative visit compliance, behavior modifications and diet changes, protein andvitamin supplementation, as well as routine scheduled and dedicated exercise. We discussed the potential weight loss benefit to approximately 60-70% of her excess body weight at 12-18 months post-op,as well as the possibility of insufficient weight loss or weight gain after 2 years post-operative time. Upon completion of all required pre-operative testing we will submit for insurance pre-authorization. The following was discussed with the patient: Dr. Salazar PATIENT SUMMARY Jaya Hopson 26 y.o. female with Body mass index is 49.72 kg/m . Laparoscopic Tonio-en-Y Gastric Bypass and Laparoscopic Liver Biopsy, HH repair DM[] HTN[] HERMAN[] GERD[x] HL[] OA[] Date of Surgery: 11/19/22 PCP: Steven Rashid APRN-[facility] INITIAL TESTING RESULTS Labwork [x] CMP, TSH, Fasting Lipid Profile, Mg, Zinc, Vit B1 (whole blood), Vit B12, 25-OH Vit D, Fe, Ferritin, Folate 04/10/22 TSH OK Tobacco [x] Serum Nicotine / Cotinine [x] Negative [] Positive 04/10/22 EGD [x] Dx: [] GERD [x] Dyspepsia [] Other 04/06/22-+ med HH Pathology [x] H. pylori [x] Negative [] Positive UGI [x] [] not ordered 04/10/22 no HH US Abdomen [x] [] not ordered 04/10/22 GB wnl HERMAN eval [] [] On CPAP / Obtain settings Hematology [] [] Hypercoagulation panel Toxicology [] [] Urine drug screen [] EtOH screen Addtional [x] [x] Hgb A1c 04/10/22 5.6 INITIAL CONSULTATIONS CLEARANCE / MANAGEMENT Psychology [x] Dr. Harp reviewed Outside evaluation with Sruthi Dai; CLEARED 10.12.2022 Dietitian [x] Annette Griffith, MS, RD, CSSD, LD Cleared 04/06/2022 Initial 03/07/2022 Cardiology [] Pulmonary [] Dr. Brennan [] []Heme/Onc []Psychiatry []Pain mgmt PSD [x] Physician supervised diet: [x]None [x]3 mos []6 mos Preop diet [x] Preop low calorie diet: []None []1 wk [x]2 wks FINAL PRE-OP TESTING RESULTS Labwork [x] [x]Pre-op CBC [x]BMP []Serum Nicotine / Cotinine EKG [x] CXR [x] POST-OP MEDICATIONS Ulcer Ppx [x] Omeprazole 20 mg PO []QD []BID Gallstone Ppx [x] Ursodiol 300 mg [x]BID DVT P px [x] DVT prophylaxis per final preop visit estimated risk Estimated calculated risk: 0.16 % DVT PPX Risk Factors [] Male [] Age >= 60 years [] BMI >= 50 kg/m^2 [] CHF [] Dyspnea at Rest [] Paraplegia [x] Non-Gastric Band Surgery [] Anticipate Operative Time > 3 hours [] Anticipate Length of Stay >3 days Automatic 4 Weeks of Therapy [] Congenital or Acquired Hypercoagulable Conditions (Factor V Leiden, Prothrombin) [] Past History of DVT or PE [] Significant Chronic Venous Insufficiency Calculated Risk Score: The predicted probability of thirty-day post-discharge VTE 0.16 % Risk % Weeks </> BMI 50 SQ Dose [x] Moderate <0.4% 0 None [] High Risk 0.4% - 1% 2 [] 40 mg Lovenox BID [] 60 mg Lovenox BID [] Very High Risk >1% 4 [] 40 mg Lovenox BID [] 60 mg Lovenox BID Lovenox not indicated Prescriptions were provided for Actigall post-operatively Prescriptions were provided for Gastric Ulcer Prophylaxis post-operatively. Pre-op diet- 2 weeks- begin on 11/06/22 I spent over 51% of the total visit time of 25 minutes counseling (or coordinating care) and provided discussion regarding risks, benefits, and options referenced above, as well as pre- and post-operative program recommendations and requirements. * Aishwarya Mckeon LPN - 11/06/2022 11:00 AM EST [facility] SURGICAL WEIGHT LOSS MANAGEMENT PROGRAM Rooming note: FINAL PRE-OP VISIT Patient: Jaya Hopson Date of : 1995 Service Date: 11/06/2022 This patient is alone for the evaluation today Patient is here today for their final pre-operative visit with surgeon prior to undergoing surgicalweight loss intervention. Patient has the following question(s): none Weight Metrics: Measurements Weight: 286 lb 6.4 oz (130 kg) Height: 5' 5 (165.1 cm) ([facility]) BMI (Calculated): 47.8 Percent Excess Weight Loss: 0 Percent Weight Change Since Preop (kg): 129.91 kg Initial Excess Weight (kg): -56.7 kg IBW in kg (Bariatric): 56.7 kg IBW in lb (Bariatric): 125 lb Weight Change Since Last Visit: 129.91 kg Percent of IBW: 229.12 Percent EBW (kg): 73.18 kg EBW (lb): 161.4 lb Today's weight has decreased from the last visit Falls Risk Assessment Patient does not take medications which affect BP or mental status Patient does not have newly prescribed or changed dosage of medications within past 30 days which affect BP or mental status Patient has not fallen in the past 2 months Patient does not demonstrate unsteady gait Patient uses the following ambulatory assistive devices: none Patient states the presence of the following traits which increases risk of fall: none Patient is low risk for falls. If high or moderate risk, patient instructed not to ambulate independently in the Center, and cord for call light placed within reach of patient. Patient has not had a time when it was difficult for an IV to be placed. Patient is not on home O2 Patient has not has a time when it was difficult to intubate them Patient does not have a CPAP/BiPAP machine. If patient DOES have CPAP/BiPAP: [] CPAP [] BiPAP Settings are cm H2O PAP and settings entered into the Medication List Completed by: Aishwarya Mckeon LPN documented in this [facility]03-01-2023 Telephone encounter Note* Telephone Encounter - DEE Granados CNP - 10/31/2022 3:46 PM EST Already responded to pt in my chart. [place] Phone: [phone]) 813-180203-01-2023 Miscellaneous Notes* Telephone Encounter - DEE Granados CNP - 10/31/2022 3:46 PM EST Already responded to pt in my chart. * Telephone Encounter - Kristen Jimenez RN - 10/31/2022 6:18 AM EST S: Patient spoke with [facility] nurse regarding medication question B: Onset of symptoms/concern today A: Patient states she is scheduled to get a Depo Injection today at 8am with her HEALTH CLAIMS EXAMINER. Patient isscheduled for Gastric bypass surgery and is concerned about getting the Depo injection and wants tomake sure it will not interfere with her surgery. R: Patient advised office is closed and would send her message to office for review high priority. Patient advised to keep her appointment and review her concerns with her BENDER MACHINE office and verbalized understanding. Patient understands care advice. No further needs at this time. Patient instructed to call back with new or worsening symptoms. Reason for Disposition [1] Caller has medicine question about med NOT prescribed by PCP AND [2] triager unable to answer question (e.g., compatibility with other med, storage) Protocols used: Medication Question [id number] documented in this [facility]03-01-2023 Telephone encounter Note* Telephone Encounter - Kristen Jimenez RN - 10/31/2022 6:18 AM EST S: Patient spoke with [facility] nurse regarding medication question B: Onset of symptoms/concern today A: Patient states she is scheduled to get a Depo Injection today at 8am with her HEALTH CLAIMS EXAMINER. Patient isscheduled for Gastric bypass surgery and is concerned about getting the Depo injection and wants tomake sure it will not interfere with her surgery. R: Patient advised office is closed and would send her message to office for review high priority. Patient advised to keep her appointment and review her concerns with her BENDER MACHINE office and verbalized understanding. Patient understands care advice. No further needs at this time. Patient instructed to call back with new or worsening symptoms. Reason for Disposition [1] Caller has medicine question about med NOT prescribed by PCP AND [2] triager unable to answer question (e.g., compatibility with other med, storage) Protocols used: Medication Question [facility] [id number] Telephone encounter Note* Telephone Encounter - Miguelina Escalante RN - 10/30/2022 2:47 PM EST No lovenox DVT P px [x] DVT prophylaxis per final preop visit estimated risk Estimated calculated risk: 0.16 % DVT PPX Risk Factors [] Male [] Age >= 60 years [] BMI >= 50 kg/m^2 [] CHF [] Dyspnea at Rest [] Paraplegia [x] Non-Gastric Band Surgery [] Anticipate Operative Time > 3 hours [] Anticipate Length of Stay >3 days Automatic 4 Weeks of Therapy [] Congenital or Acquired Hypercoagulable Conditions (Factor V Leiden, Prothrombin) [] Past History of DVT or PE [] Significant Chronic Venous Insufficiency Calculated Risk Score: The predicted probability of thirty-day post-discharge VTE 0.16 % Risk % Weeks </> BMI 50 SQ Dose [x] Moderate <0.4% 0 None [] High Risk 0.4% - 1% 2 [] 40 mg Lovenox BID [] 60 mg Lovenox BID [] Very High Risk >1% 4 [] 40 mg Lovenox BID [] 60 mg Lovenox BID [id number] History of Present illness Narrative* Sudha Cooperhectordarline, CN - 08/02/2022 11:26 AM EST Subjective Patient ID: Jaya Hopson is a 27 y.o. female. HPI Jaya presents today for a problem visit related to abnormal bleeding, pt states she usually has a period every 28 days, lasting about 6-7 days from the time she started menarche at age 10 she has had normal monthly cycles. She said her bleeding is heavy but otherwise it has always been normal. This month she had a period at the start of July and then started bleeding again on 07/17/22 and is still bleeding heavily at todays visit. She has noticed some small clots with this bleeding episode that she has not noticed before. She denies any changes in her life. Has a pmhx of anxiety/depression, and asthma, denies any medication changes. She has never been sexually active. Denies risk o f STI. Denies any vaginal discharge, pain, swelling, or itching. Pt had normal pap a few years ago,due now. Pt denies any abdominal cramping. Pt states her mother did have to have a hysterectomy dueto abnormal bleeding but she is unsure of what the cause was. Pt is not on any control at this time. The following portions of the patient's history were reviewed and updated as appropriate: allergies, current medications, past family history, past medical history, past social history, past surgicalhistory, and problem list. Review of Systems Constitutional: Negative for activity change, appetite change and fatigue. HENT: Negative for congestion and mouth sores. Respiratory: Negative for cough, chest tightness and shortness of breath. Cardiovascular: Negative for chest pain, palpitations and leg swelling. Gastrointestinal: Negative for abdominal distention, abdominal pain, diarrhea, nausea and vomiting. Endocrine: Negative for cold intolerance and heat intolerance. Genitourinary: Positive for menstrual problem. Negative for difficulty urinating, dyspareunia, dysuria, pelvic pain, vaginal bleeding, vaginal discharge and vaginal pain. Musculoskeletal: Negative for arthralgias and back pain. Skin: Negative for color change, rash and wound. Neurological: Negative for dizziness, syncope, light-headedness and headaches. Psychiatric/Behavioral: Negative for dysphoric mood, self-injury and suicidal ideas. The patient isnot nervous/anxious. Objective Physical Exam Vitals reviewed. Constitutional: General: She is not in acute distress. Appearance: She is normal weight. Cardiovascular: Rate and Rhythm: Normal rate. Pulmonary: Effort: Pulmonary effort is normal. No respiratory distress. Genitourinary: General: Normal vulva. Exam position: Supine. Labia: Right: No rash, tenderness, lesion or injury. Left: No rash, tenderness, lesion or injury. Urethra: No urethral pain or urethral swelling. Vagina: No signs of injury. Tenderness and bleeding present. No erythema, lesions or prolapsed vaginal flores. Cervix: Normal. Uterus: Normal. Rectum: Normal. Comments: Adnexa difficult to palpate r/t body habitus, pt did have significant amount of discomfort with speculum/bimanual exam. No cervical polyps noted on exam. Lymphadenopathy: Lower Body: No right inguinal adenopathy. No left inguinal adenopathy. Skin: General: Skin is warm and dry. Neurological: Mental Status: She is alert and oriented to person, place, and time. Psychiatric: Mood and Affect: Mood normal. Behavior: Behavior normal. Thought Content: Thought content normal. Judgment: Judgment normal. Assessment/Plan: Diagnoses and all orders for this visit: Abnormal menses - US Pelvic Transabdominal and Transvaginal; Future - Education with patient regarding possible causes of menses changes. Pt interested in trying to control period, reviewed BC options and pt states she would like to try depo injection. Advised pt this is fine but would also recommend US to evaluate possible cause of change in bleeding patterns. Educ ation with pt regarding disorderly bleeding patterns for a few months when starting a new BC. TVUS scheduled today as well as new annual exam. Encounter for initial prescription of injectable contraceptive - medroxyPROGESTERone (DEPO-PROVERA) injection 150 mg - POC , urine - NEGATIVE - Marlenevishal Prateek Hopson is a 27 y.o. who presents for BC counseling. I have reviewed med hx and determined risk factors of anxiety and depression. Reviewed increase risk of depression with depo injectionpt aware and would still like to proceed with depo. Discussed all options for pt. R/B/side effects reviewed. Pt has decided on depo, will admin today, Safe sex also reviewed and condom use recommended. Education regarding back up method for first 7 days after depo injection. * Sudha Waters CNM - 08/02/2022 11:26 AM EST documented in this [id number] Hospital Discharge instructions * Discharge Instructions* Lucero Jimenez RN - 04/06/2022 2:43 PM EDT Images from the original note were not included. Upper GI Endoscopy: What to expect at home ACTIVITY: DO NOT DRIVE, OPERATE MACHINERY, OR DRINK ANY ALCOHOL TODAY. Avoid making critical decisions, signing legal documents, or performing any activity that requires alertness for the rest of the day. You may be bloated or have gas pains since air was introduced into the stomach for the procedure. You may need to pass the gas throughout the day. You may experience a mild sore throat. You may use an jrop-yur-vdqrzgm chloraseptic spray, gargle with warm salt water, or use throat lozenges. Notify your physician if this feeling lasts more than 48 hours. Rest the remainder of the day. You may resume normal activity tomorrow. You may return to work tomorrow. DIET: You may resume a normal diet unless notified or recommended by your physician. You may be eager to eat a large meal after fasting, but it is a good idea to start with light mealsand ease into solid foods the first day. (*) If your stomach is upset, try clear liquids and bland, low-fat foods like plain toast or rice. Drink plenty of fluids for the first 24 hours (unless your physician states otherwise). MEDICATION: Resume your normal home medications unless notified or recommended by your physician. If you take blood thinners (such as Coumadin, Eliquis, Plavix, Aspirin, etc.) or anti-inflammatory medications (Advil, Motrin, Aleve, etc.), ask your physician when you may resume these medications. FOLLOW-UP APPOINTMENT: Follow up with or call your physician as needed. When to call for help: Call your doctor IMMEDIATELY or seek medical care if you experience: Severe pain or vomiting Coughing up more than a teaspoon of blood You pass a large amount of tar-like stools Your belly is swollen and firm with severe pain A fever greater than 101 degrees Redness or swelling of arm from the IV site for more than 48 hours Sudden onset of chest pain or shortness of breath If you become extremely dizzy or pass out (lose consciousness) IF YOU ARE UNABLE TO REACH YOUR PHYSICIAN GO TO NEAREST EMERGENCY DEPARTMENT Hiatal Hernia Discharge Instructions You must carefully read the Consumer Information Use and Disclaimer below in order to understand and correctly use this information About this topic Hiatal hernia is when part of the stomach is up in the chest. It sticks up through the muscle that divides the chest and abdomen. This muscle is called the diaphragm. It keeps stomach acid from goingback up the swallowing tube. The swallowing tube is called the esophagus. Image(s) What care is needed at home? Ask your doctor what you need to do when you go home. Make sure you ask questions if you do not understand what the doctor says. This way you will know what you need to do. Do not wear tight clothing over your belly. Wear clothes and belts that are loose around your waist. Raise the head of the bed up 6 to 8 inches (15 to 20 cm) or use a wedge pillow. This position may keep stomach acid from getting into the esophagus. What follow-up care is needed? Your doctor may ask you to make visits to the office to check on your progress. Be sure to keep these visits. What drugs may be needed? The doctor may order drugs to: Lower stomach acid Stop heartburn Help with pain Will physical activity be limited? You may have to limit your activity. Talk to the doctor about the right amount of activity for you.Avoid sports that involve lifting heavy things and bending. This can cause stress on your belly. Avoid straining. Having trouble passing stool or hard stools may make your hernia worse. What changes to diet are needed? Avoid large, heavy meals. Eat a few small meals throughout the day. Avoid drinking too much with meals. Wait at least 2 to 3 hours after eating before lying down or bending over. Avoid foods that may upset the stomach. Some people have an upset belly after: Coffee Benson fruits and juices Tomato products Hot peppers Fizzy drinks Chocolate Peppermint Fatty foods Beer, wine, and mixed drinks (alcohol) What problems could happen? Lower blood levels of iron No blood flow to hernia What can be done to prevent this health problem? Keep a healthy weight. Lose weight if you are overweight. Avoid smoking. Ask for help if it's hard to quit. When do I need to call the doctor? Heartburn that is worse when bending over or lying down Swallowing problems You are not feeling better in 2 to 3 days or you are feeling worse Teach Back: Helping You Understand The Teach Back Method helps you understand the information we are giving you. The idea is simple. After talking with the staff, tell them in your own words what you were just told. This helps to makesure the staff has covered each thing clearly. It also helps to explain things that may have been abit confusing. Before going home, make sure you are able to do these: I can tell you about my condition. I can tell you what changes I need to make with my diet or drugs. I can tell you what I will do if I have more heartburn when I am bending over or lying down. Where can I learn more? [facility] Choices http://www.nhs.uk/conditions/hernia-hiatus/pages/introduction.aspx Consumer Information Use and Disclaimer: This information is not specific medical advice and does not replace information you receive from your health care provider. This is only a brief summary of general information. It does NOT include all information about conditions, illnesses, injuries, tests, procedures, treatments, therapies, discharge instructions or life-style choices that may apply to you. You must talk with your health care provider for complete information about your health and treatment options. This information should not be used to decide whether or not to accept your health care provider s advice, instructions or recommendations. Only your health care provider has the knowledge and training to provide advice that is right for you. Last Reviewed Date 2014-06-10 Last Updated 09/08/16 documented in this [facility] Work Phone: [phone]) 552-700405-26-2021 NoteHNO ID: [id number] Author: Navin Guerra, PT Service: ? Author Type: Physical Therapist Type: Progress Notes Filed: 01/25/2021 12:37 PM Note Text: Episode Visit Count: 3 Therapist That Will Oversee The Plan Of Care: Navin Charlie Start of Care Date: 12/14/20 Onset Date: 09/02/20 (long standing issue, recently worse with increase Migraines) Patient Identified by Name and Date of : Yes REHABILITATION AND SPORTS THERAPY PHYSICAL THERAPY DISCONTINUANCE OF CARE PLAN OF CARE UPDATE: Assessment: Jaya Hopson is discontinued from Physical Therapy services due to goal achievement. and Patient/Clinician mutual decision to discontinue current plan of care.. Patient was seen for 3 visits from Start of Care Date: 12/14/20 to 01/25/2021 and treatment included: Neuromuscular re-education. Patient is not experiencing dizzy events like she was. She is aware of migraine and dizzy connection and feels more prepared to cope with dizzy events. She has HEP for vestibular based ex and balance. Difficulty is noted with AP weight shifts retro with less use of hip strategy. HEP instructed to address this deficit. Patient has made improvements on her intensity and severity of dizziness and feels content to discontinue PT at this time. Goals for Episode of Care: UPDATED 01/25/2021: created on 12/14/20 through 02/12/21 Patient will perform Romberg stance on compliant surface with EC for 30 seconds without LOB: MET Patient will be independent with home exercise program and progression: Partially met: Addressed. Patient states she has not been able to do much recently with the moving. Patient will return to prior level of function with all activities of daily living with trace reports of dizziness--frequency of spinning sensations to 3-4 days per week for 50% reduction of symptoms: MET: No spinning events for a few weeks Patient will deny dizziness with rest: MET: Dizziness has been better and not at rest. Patient will demonstrate the ability to complete VOR in static and dynamic positions with trace report of dizziness (160 + bpm performance).: MET: good tolerance at 160 bpm Patient Goals: want to reduce dizziness, find ways to manage dizzy spells: MET. Patient states she has minor events with moving too fast. SUBJECTIVE: Patient Reason for Visit: today feels ok. Did have a little dizziness on the elevator which is normal for her. Has been moving with a lot of physical actiivty without dizziness. Vestibular Rating of current symptoms: 0/10 Pain: Pain Pain Level: 0 PROMIS Scales Higher is Better 12/21/2019 12/05/2020 12/14/2020 Phys Func - Score - - 46 (within normal limits) Phys Func - Percentile - - 34 % Social Roles - Score - - 55 (within normal limits) Social Role - Percentile - - 69 % GH Physical - Score 47.7 50.8 - GH Physical - Percentile 41 % 53 % - GH Mental - Score 50.8 48.3 - GH Mental - Percentile 53 % 43 % - Self-Eff Symptom - Score - - 41 (Average) Self-Eff Symptom - Percentile - - 18 % T-scores: mean of general population = 50. 5 points is clinically meaningfully difference Percentiles provide an indication of how the patient's score ranks in relation to the general population. Higher percentile rankings indicate better function/quality of life. 50th percentile is the average of the general population and indicates half of respondents had a worse score. Lower is Better 12/14/2020 Fatigue - Score 42 (within normal limits) Fatigue - Percentile 79 % T-scores: mean of general population = 50. 5 points is clinically meaningfully difference Percentiles provide an indication of how the patient's score ranks in relation to the general population. Higher percentile rankings indicate better function/quality of life. 50th percentile is the average of the general population and indicates half of respondents had a worse score. OBJECTIVE MEASURES WITH LEVEL OF FUNCTION: TREATMENT: Neuromuscular Re-Education: 1: CTSIB 2: standing X-1 at 160 bpm vertical and horizontal x 1 min each 3: Biodex: posture stability: EO, EC, X-1 vertical and horizontal, head movement vertical and horizonal with EC 4: Biodex: posture stability: reduction of force plate to level 3 (5 sec intervals each reduction) x 3 trials 5: Biodex: weight shifting AP and LAT with EO and EC: 100% accurate laterally with EC, 78% accurate with EC AP 6: *review of HEP and encouraged daily posture awareness and AP weight shifts. Reinforced X-1 and imagined targets, VORc to be done on good days--to avoid FUENTES days and discontinue if ex increases FUENTES 7: *discussed use of ICE to neck when dizzy aura occurs and use of her break-through Migraine medications. Skilled Intervention: Skilled judgment used to assess appropriate program for balance and coordination activity. Education in proprioceptive/kinesthetic awareness during standing and balance activities. Insured patient safety with use (more content not included)...[facility] 01-04-2021 NoteHNO ID: [id number] Author: Navin Guerra PT Service: ? Author Type: Physical Therapist Type: Progress Notes Filed: 01/04/2021 1:20 PM Note Text: Episode Visit Count: 2 Therapist That Will Oversee The Plan Of Care: Navin Guerra Start of Care Date: 12/14/20 Onset Date: 09/02/20 (long standing issue, recently worse with increase Migraines) Patient Identified by Name and Date of : Yes REHABILITATION AND SPORTS THERAPY PHYSICAL THERAPY TREATMENT NOTE ASSESSMENT: Jaya Hopson demonstrated some improvements in dizziness and good tolerance to HEP. This date, noted visual dependency on CTSIB and symptom provocation with VORc and horizontal VOR ex. Overall good tolerance with only mild symptom increase and ability to recovery quickly. The patient will continue to benefit from ongoing skilled physical therapy for progression of balance and VOR work to reduce dizziness symptoms. PLAN FOR NEXT VISIT: revisit tolerance to HEP, progress VOR in standing, balance ex with EC SUBJECTIVE: Patient Reason for Visit: pt had COVID vaccine and has been feeling weird. Some dizziness with HEP, like her head is full. Gets a little dizzy but it subsides quickly. Balance and dizziness feels pretty good. Dizziness less noticeable at rest. Pain: Pain Pain Level: 1 Pain Location: (headache) Description: Pressure Frequency: Intermittent Post Treatment Pain Post Treatment Pain Level: No Change Post Treatment Symptoms: feels slightly dizzy but feels fine to exit OBJECTIVE MEASURES WITH LEVEL OF FUNCTION: CTSIB Eyes open, firm surface Trial 1 (sec): 30 Eyes open, firm surface Trial 1 (sway): Mild Eyes closed, firm surface Trial 1 (sec): 30 Eyes closed, firm surface Trial 1 (sway): Moderate Eyes open, foam surface Trial 1 (sec): 30 Eyes open, foam surface Trial 1 (sway): Mild Eyes closed, foam surface Trial 1 (sec): 30 Eyes closed, foam surface Trial 1 (sway): Moderate TREATMENT: Neuromuscular Re-Education: 1: CTSIB 2: seated X-1 : 120 bpm vertical and horizontal x 1 min each, 150 bpm x 30 sec vertical and horizontal 3: *instructed to keep HEP at 120 bpm daily, add increased speed at short time intervals 3-4 times per week 4: imagined targets: vertical and horizontal x several reps each. 5: *imagined targets with emphasis to the R 6: standing eye/head 2 point gaze x 10 reps 7: further education on Migraine, dizziness, balance inter-relationship. Reinforcement to modify ex and terminate if symptoms of Migraine occur. 8: standing VORc horizontal 10 reps x 3 sets 9: *standing VORc for HEP 3-4 days per week Skilled Intervention: Skilled judgment used to assess appropriate program for balance and coordination activity. Education in proprioceptive/kinesthetic awareness during standing and balance activity. Insured patient safety with use of proper guarding Reviewed and educated patient on additions/changes for home program as noted above with an (*). Provided written instruction for home program to facilitate proper performance and compliance. Correct performance of home program was facilitated with verbal and visual cueing. Patient education as noted. Billing: Constance: Neuromuscular Re-education (07445): 1:1 time: 53 minutes (4 units: 53-67 mins) Total time / Length of visit: 54 minutes [facility] NoteHNO ID: [id number] Author: Navin (Pt) Charlie Service: ? Author Type: Physical Therapist Type: Progress Notes Filed: 12/14/2020 9:15 PM Note Text: Episode Visit Count: 1 Therapist That Will Oversee The Plan Of Care: Navin Guerra Start of Care Date: 12/14/20 Onset Date: 09/02/20 (long standing issue, recently worse with increase Migraines) Patient Identified by Name and Date of : Yes REHABILITATION AND SPORTS THERAPY PHYSICAL THERAPY EVALUATION PLAN OF CARE: Assessment: Jaya Hopson presents with the chief complaint of Migraines, dizziness and sense of movement. She presents with impairments of abnormal VOR/VORc and positional testing indicative of motion sensitivity with reduced eye/vision stability. She presents as a unilateral hypofunction (? Central originated vs peripheral). PROMIS? (Patient-Reported Outcomes Measurement Information System) scores were reviewed and all domains identified as within normal limits. She may benefit from skilled therapy services to improve VOR responses, reduce dizziness episodes frequency and intensity, and reduce sense of movement at rest. Progression of VOR ex will be cautious due to migraine issues. Prognosis: Good Good due to: current objective clinical presentation;good support system/ coping skills Goals for Episode of Care: created on 12/14/20 through 02/12/21 Patient will perform Romberg stance on compliant surface with EC for 30 seconds without LOB. Patient will be independent with home exercise program and progression. Patient will return to prior level of function with all activities of daily living with trace reports of dizziness--frequency of spinning sensations to 3-4 days per week for 50% reduction of symptoms. Patient will deny dizziness with rest. Patient will demonstrate the ability to complete VOR in static and dynamic positions with trace report of dizziness (160 + bpm performance). Patient Goals: want to reduce dizziness, find ways to manage dizzy spells Planned Interventions, Frequency, and Duration: Current Frequency: 1x every other week Duration: 8 weeks Total Number of Visits Planned: 4 Planned Treatment Interventions: Therapeutic exercise (59370);Neuromuscular re-education (64365);Manual therapy (90941);Self-retirement management (76177);Patient/Family/Caregiver Education PLAN FOR NEXT VISIT: CSIB. Progress VOR ex. Monitor response to X-1 Patient demonstrates good understanding of plan of care and treatment. The above goals and plan of care were discussed and agreed upon by patient/family. SUBJECTIVE: Jaya Hopson is a 25 year old female seen today for pt states she has had long standing issues with Migraines, off and on visual auras, dizziness, and blurred vision. Seems like symptoms have gotten slightly worse. Symptoms comes and goes but she reports some level of dizziness or sense of movement on a daily basis. Dizzy spells last 5-10 seconds but are frequent. Migraines increase the intensity and frequency. Inbetween dizzy episodes, feels like she is moving. Patient Goals: want to reduce dizziness, find ways to manage dizzy spells Functional Limitations: Comments Functional Limitation Comments: limits driving when FUENTES/dizzy bad. Prior Level of Function: Independent without limitations (long standing hx of issues--deals when she has to) Intake Information: Prescription present Previous Treatment: None Falls Interview: No positive findings with falls interview Aquatic Screen: No Vestibular Symptoms present for: years Symptom onset: gradual (cannot recall trigger for increased symptoms.) Dizziness: Yes Description: off sensation;woozy (float or sway back and forth) Rating of current symptoms: 4/10 Frequency: Intermittent Duration: hours (spinning--usually several seconds/brief) Symptoms worsened by: watching moving objects;busy environments;elevators (can be spontaneous ) Imbalance: No (balance on R side not as good as the L ) Fall Assessment: No falls Nausea: no, very rarely Motion Sickness: As a child;Current (elevators, in moving environments) Headache: (as above) Neck Symptoms: (stiffness, carries tension in neck ) Jaw Symptoms: No (child--clenched teeth) Ear Symptoms: No Hearing Changes: No recent changes Tinnitus: (occassional ringing L >>R. Intermittent ) Sleeping Position: Side lying right > left Sleep Affected by Symptoms: not affected by pain;Not affected by dizziness (occassionally wakes up) History of Syncope: No History of Migraine: Yes Reports: headaches;dizziness;visual changes Pain: Pain Pain Level: 3 Pain Location: Head - Left Description: Pressure;Throbbing Frequency: Intermittent Post Treatment Pain Post Treatment Pain Level: No Change Post Treatment Symptoms: no change PROMIS Scales Higher is Better 12/21/2019 12/05/2020 12/14/2020 Phys Func - Score - - 46 (within normal limits) Phys Func - Percentile - - 34 % (more content not included)...[facility] Evaluation noteNo assessment information availableWMartins Ferry Hospital Work Phone: Evaluation note* Diagnosis Generalized abdominal pain Abdominal pain, generalized documented in this encounter [facility] Work Phone: Evaluation note* Diagnosis Abnormal menses- Primary Unspecified disorder of menstruation and other abnormal bleeding from female genital tract Encounter for initial prescription of injectable contraceptive documented in this encounter [facility] note* Diagnosis Encounter for surveillance of injectable contraceptive- Primary documented in this encounter [facility] note* Diagnosis High creatinine- Primary Morbid (severe) obesity due to excess calories (HCC) documented in this encounter [facility] note* Diagnosis High creatinine- Primary Morbid (severe) obesity due to excess calories (HCC) documented in this encounter [facility] note* Diagnosis Morbid obesity with BMI of 45.0-49.9, adult (CMS/HCC) (HCC)- Primary Morbid obesity with BMI of 45.0-49.9, adult (CMS/HCC) (HCC) Morbid (severe) obesity due to excess calories (HCC) documented in this encounter [facility] note* Diagnosis Morbid obesity with BMI of 45.0-49.9, adult ([facility]) (HCC) documented in this encounter [facility] note* Diagnosis Oral candidiasis- Primary Candidiasis of mouth Deficiency of multiple nutrient elements Other nutritional deficiency Intestinal malabsorption, unspecified type Morbid obesity with BMI of 40.0-44.9, adult ([facility]) documented in this encounter [facility] note* Diagnosis GERD without esophagitis- Primary Esophageal reflux Slow transit constipation Deficiency of multiple nutrient elements Other nutritional deficiency Intestinal malabsorption, unspecified type Morbid obesity with BMI of 40.0-44.9, adult ([facility]) documented in this encounter [facility] note* Diagnosis Encounter for surveillance of injectable contraceptive- Primary documented in this encounter [facility] note* Diagnosis Morbid (severe) obesity due to excess calories (HCC)- Primary Morbid obesity due to excess calories (HCC) GERD without esophagitis Esophageal reflux Pre-operative laboratory examination Pre-procedural laboratory examination Pre-diabetes Other abnormal glucose Morbid (severe) obesity due to excess calories ([facility]) documented in this encounter [facility] note* Diagnosis GERD without esophagitis- Primary Esophageal reflux Intestinal malabsorption, unspecified type Deficiency of multiple nutrient elements Other nutritional deficiency Class 2 obesity due to excess calories without serious comorbidity with body mass index (BMI) of 38.0 to 38.9 in adult documented in this encounter [facility] note* Diagnosis Acute left-sided low back pain without sciatica- Primary Cervicogenic headache Headache documented in this encounter [facility] note* Diagnosis High serum ferritin- Primary High vitamin D level Hypervitaminosis D High serum vitamin B12 documented in this encounter [facility] note* Diagnosis GERD without esophagitis- Primary Esophageal reflux Intestinal malabsorption, unspecified type Deficiency of multiple nutrient elements Other nutritional deficiency Class 1 obesity due to excess calories with body mass index (BMI) of 33.0 to 33.9 in adult, unspecified whether serious comorbidity present Hx of gastric bypass documented in this encounter [facility] note* Diagnosis Closed fracture of left ankle, initial encounter- Primary Closed fracture of posterior malleolus of left tibia, initial encounter Sprain of left ankle, unspecified ligament, initial encounter Acute left ankle pain documented in this encounter [facility] note* Diagnosis Closed fracture of left ankle with routine healing, subsequent encounter- Primary Closed fracture of posterior malleolus of left tibia with routine healing, subsequent encounter Sprain of left ankle, unspecified ligament, initial encounter Acute left ankle pain documented in this encounter [facility] note* Diagnosis Encounter for well woman exam with routine gynecological exam- Primary Vaginal discharge Leukorrhea, not specified as infective [facility] [place] [facility] Diagnosis Syncope, unspecified syncope type- Primary [facility] [place] [facility]* Diagnosis Thrombocytopenia (HCC)- Primary Unspecified thrombocytopenia documented in this encounter [facility] note* Diagnosis Closed fracture of left ankle with routine healing, subsequent encounter- Primary Sprain of left ankle, unspecified ligament, initial encounter Acute left ankle pain [facility] [place] [facility]* Diagnosis Abnormal EKG- Primary Nonspecific abnormal electrocardiogram (ECG) (EKG) Syncope, unspecified syncope type documented in this encounter [facility] note* Diagnosis Syncope, unspecified syncope type- Primary documented [facility] [place] [facility]* Diagnosis Migraine with aura and without status migrainosus, not intractable- Primary Migraine with aura, without mention of intractable migraine without mention of status migrainosus documented in this encounter [facility] note* Diagnosis RUQ abdominal pain Abdominal pain, right upper quadrant Intestinal malabsorption, unspecified type Deficiency of multiple nutrient elements Other nutritional deficiency GERD without esophagitis Esophageal reflux documented in this encounter [facility] note* Diagnosis Excess skin- Primary Intestinal malabsorption, unspecified type Deficiency of multiple nutrient elements Other nutritional deficiency GERD without esophagitis Esophageal reflux BMI 29.0-29.9,adult documented in this encounter [facility] note* Diagnosis Migraine with aura and without status migrainosus, not intractable Migraine with aura, without mention of intractable migraine without mention of status migrainosus Bilateral occipital neuralgia Other syndromes affecting cervical region Chiari malformation type I (HCC) Compression of brain documented in this encounter [facility] note* Diagnosis Migraine with aura and without status migrainosus, not intractable- Primary Migraine with aura, without mention of intractable migraine without mention of status migrainosus Imbalance Abnormality of gait Cervicalgia documented in this encounter [facility] note* Diagnosis Posture abnormality- Primary Abnormal posture Migraine with aura and without status migrainosus, not intractable Migraine with aura, without mention of intractable migraine without mention of status migrainosus Imbalance Abnormality of gait Dizziness Dizziness and giddiness [facility] [place] [facility]* Diagnosis Leukopenia, unspecified type- Primary Thrombocytopenia (HCC) Thrombocytopenia, unspecified [facility] Imbalance- Primary Abnormality of gait Migraine with aura and without status migrainosus, not intractable Migraine with aura, without mention of intractable migraine without mention of status migrainosus Posture abnormality Abnormal posture Dizziness Dizziness and giddiness [facility] [place] [facility]* Diagnosis Imbalance- Primary Abnormality of gait Migraine with aura and without status migrainosus, not intractable Migraine with aura, without mention of intractable migraine without mention of status migrainosus Posture abnormality Abnormal posture Dizziness Dizziness and giddiness [facility] [place] [facility]* Diagnosis Imbalance- Primary Abnormality of gait Migraine with aura and without status migrainosus, not intractable Migraine with aura, without mention of intractable migraine without mention of status migrainosus Posture abnormality Abnormal posture Dizziness Dizziness and giddiness [facility] [place] [facility]* Diagnosis Encounter for gynecological examination (general) (routine) with abnormal findings- Primary Vaginismus Pelvic floor tension [facility] [place] [facility]* Diagnosis Well adult exam- Primary Routine general medical examination at a health care facility Leukopenia, unspecified type Mild intermittent asthma, uncomplicated Unspecified asthma Obesity, Class I, BMI 30-34.9 Obesity, unspecified [facility] Diagnosis Thrombocytopenia (HCC)- Primary Thrombocytopenia, unspecified Leukopenia, unspecified type [facility] [place] [facility]* Diagnosis Mild intermittent asthma with acute exacerbation- Primary Unspecified asthma, with exacerbation Mild intermittent asthma, uncomplicated Unspecified asthma [facility] Diagnosis Tremor- Primary Abnormal involuntary movements [facility]* Diagnosis Syncope, unspecified syncope type- Primary Tremors of nervous system Abnormal involuntary movements Idiopathic hypotension Hypotension, unspecified Anxiety and depression Dysthymic disorder Obesity, Class I, BMI 30-34.9 Obesity, unspecified [facility] Diagnosis AP[facility]MENT CANCELLED- Primary [facility] Diagnosis Syncope, unspecified syncope type- Primary Orthostatic lightheadedness Dizziness and giddiness Tachycardia Tachycardia, unspecified Near syncope Syncope and collapse documented in this encounter [facility] note* Diagnosis High serum vitamin B12- Primary documented in this encounter [facility] note* Diagnosis Encounter for management and injection of depo-Provera- Primary Surveillance of other previously prescribed contraceptive method documented in this encounter [facility] note* Diagnosis Dizziness- Primary Dizziness and giddiness documented in this encounter [facility] note* Diagnosis S/P bariatric surgery- Primary 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 Other nutritional deficiency BMI 29.0-29.9,adult Overweight (BMI 25.0-29.9) Overweight documented in this encounter [facility] note* Diagnosis Encounter for management and injection of depo-Provera- Primary Surveillance of other previously prescribed contraceptive method documented in this encounter [facility] note* Diagnosis Morbid obesity due to excess calories (HCC) GERD without esophagitis Esophageal reflux Pre-operative laboratory examination Pre-procedural laboratory examination Pre-diabetes Other abnormal glucose Morbid (severe) obesity due to excess calories (HCC) documented in this encounter [facility] note* Diagnosis Morbid obesity with BMI of 45.0-49.9, adult (CMS/HCC) (HCC)- Primary Morbid (severe) obesity due to excess calories (HCC) documented in this encounter [facility] note* Diagnosis High potassium- Primary Hyperpotassemia Morbid (severe) obesity due to excess calories (HCC) documented in this encounter [facility] note* Diagnosis Tachycardia- Primary Unspecified tachycardia Orthostatic hypotension History of Tonio-en-Y gastric bypass Syncope and collapse documented in this encounter [facility] note* Diagnosis Tachycardia- Primary Unspecified tachycardia Orthostatic hypotension History of Tonio-en-Y gastric bypass Syncope and collapse Tachycardia Unspecified tachycardia documented in this encounter [facility] note* Diagnosis Migraine with aura and without status migrainosus, not intractable- Primary Migraine with aura, without mention of intractable migraine without mention of status migrainosus Chiari malformation type I (HCC) Compression of brain documented in this encounter [facility] note* Diagnosis Tachycardia- Primary Unspecified tachycardia Orthostatic hypotension History of Tonio-en-Y gastric bypass Syncope and collapse Excessive skin and subcutaneous tissue- Primary Acquired generalized lipodystrophy Lipodystrophy History of morbid obesity documented in this encounter [facility] note* Diagnosis High serum vitamin B12- Primary documented in this encounter [facility] note* Diagnosis Encounter for management and injection of depo-Provera- Primary Surveillance of other previously prescribed contraceptive method documented in this encounter [facility] note* Diagnosis Tachycardia- Primary Unspecified tachycardia Orthostatic hypotension History of Tonio-en-Y gastric bypass Syncope and collapse Excessive skin and subcutaneous tissue- Primary Acquired generalized lipodystrophy Lipodystrophy History of morbid obesity documented in this encounter [facility] note* Diagnosis Chiari I malformation (HCC)- Primary Compression of brain Chiari malformation type I (HCC) Compression of brain documented in this encounter [facility] note* Diagnosis Chiari I malformation (HCC) Compression of brain documented in this encounter [facility] note* Diagnosis Tachycardia- Primary Unspecified tachycardia Orthostatic hypotension History of Tonio-en-Y gastric bypass Syncope and collapse S/P bariatric surgery- Primary 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 Other nutritional deficiency Vitamin deficiency Unspecified vitamin deficiency Class 1 obesity due to excess calories with serious comorbidity and body mass index (BMI) of 31.0 to 31.9 in adult BMI 31.0-31.9,adult documented in this encounter [facility] note* Diagnosis Encounter for gynecological examination (general) (routine) without abnormal findings- Primary documented in this encounter [facility] note* Diagnosis Chiari I malformation (HCC)- Primary Compression of brain documented in this encounter [facility] note* Diagnosis Chiari I malformation (HCC)- Primary Compression of brain documented in this encounter [facility] note* Diagnosis Encounter for surveillance of other contraceptive- Primary documented in this encounter [facility] note* Diagnosis Tachycardia- Primary Unspecified tachycardia Orthostatic hypotension History of Tonio-en-Y gastric bypass Syncope and collapse BMI 32.0-32.9,adult- Primary Class 1 obesity due to excess calories with serious comorbidity and body mass index (BMI) of 32.0 to 32.9 in adult S/P bariatric surgery 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 Other nutritional deficiency documented in this encounter [facility] note* Diagnosis Tachycardia- Primary Unspecified tachycardia Orthostatic hypotension History of Tonio-en-Y gastric bypass Syncope and collapse BMI 32.0-32.9,adult- Primary Class 1 obesity due to excess calories with serious comorbidity and body mass index (BMI) of 32.0 to 32.9 in adult S/P bariatric surgery Other specified intestinal malabsorption (HHS/HCC) 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 Other nutritional deficiency [facility] instructions[facility] Work Phone: Hospital Discharge instructions Additional Instructions Please decrease your aripiprazole by half while taking the COVID medications. (Take half a pill daily). If your oxygen goes below 90% at rest with home pulse oximeter please return to the emergency room for further evaluation. Drink lots of fluids. Alternate ibuprofen and Tylenol for fever and body aches.[facility] Work Phone: Hospital Discharge instructions Additional Instructions 1. Return if you have black or maroon-colored stool or vomit what appears to be coffee-ground appearing liquid.[facility] Work Phone: Instructions* Attachments The following attachments cannot be sent through Care Everywhere. * Ankle Fracture: Rehab Exercises ([place]) [facility]* Attachments The following attachments cannot be sent through Care Everywhere. * Ankle Fracture: Rehab Exercises ([place]) documented in this encounter[facility]Reason for referral (narrative)* Consultation (Routine) - Pending Review Specialty Diagnoses / Procedures Referred By Saadia lopez Referred To Contact Plastic Surgery Diagnoses Intestinal malabsorption, unspecified type Deficiency of multiple nutrient elements GERD without esophagitis BMI 29.0-29.9,adult Excess skin Procedures CA OFFICE/OUTPATIENT [facility] 60 MINUTES Rakesh Salazar MD [address] [place] [address] [address] [place] [address] [facility] Plastic [address] [place] [address] [address] [place] [address] Referral ID Status Reason Start Date Expiration Date Visits Requested Visits Authorized [id number] Pending Review Specialty Services Required 11/26/2023 11/25/2024 1 1 [facility] for referral (narrative)No reason for referral information availableWMartins Ferry Hospital Work Phone: Reason for visit Narrative* Cardiology (Routine) - Closed Specialty Diagnoses / Procedures Referred By Contac t Referred To Contact Cardiology Diagnoses Tachycardia Procedures Cardiac holter monitor (3-7 days) CA EXTERNAL ECG REC>48HR<7D REVIEW & INTERPRETATION CA EXTERNAL ECG REC>48HR<7D RECORDING CA EXTERNAL ECG REC>7D<15D RECORDING CA EXTERNAL ECG REC>7D<15D REVIEW & INTERPRETATION See Velasquez MD [address] [facility] [address] [place] [address] Phone: tel: fax: Referral ID Status Reason Start Date Expiration Date Visits Re quested Visits Authorized [id number] Closed 08/31/2024 08/26/2025 1 1 [facility] for visit Narrative* MRI/CT (Routine) - Closed Specialty Diagnoses / Procedures Referred By Contac t Referred To Contact MR IMAGING Diagnoses Chiari I malformation (HCC) Procedures MRI CERVICAL SPINE WO IVCON MRI SPINAL CANAL CERVICAL W/O CONTRAST Shasta Robles PA-C [address] [place] [address] Phone: tel: fax: MR [place] [phone] Referral ID Status Reason Start Date Expiration Date V isits Requested Visits Authorized [id number] Closed Auto-Generate d Referral 12/08/2024 09/01/2025 1 1 [facility] Summary Purpose Family History No Family History Records FoundNo Family History Records FoundNo Family History Records FoundNo Family History Records FoundNo Family History Records FoundNo Family History Records FoundNo Family History Records FoundNo Family History Records FoundNo Family History Records FoundNo Family History Records FoundNo Family History Records Found Advance Directives No Advanced Directives Records FoundLatest Code Status on File Code Status Date Activated Date Inactivated Comments Full Code 11/21/2022 4:16 PM Code Status History Code Status Date Activated Date Inactivated Comments Full Code 11/21/2022 5:52 AM 11/21/2022 4:16 PM Advance Directive Response Recorded Date/ Time Living Will No January 09, 2022 2 :44pm Power of Mixed Crop And Livestock Farmer No January 09, 2022 2:44pm Documents on File Type Date 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 ACP-Advance Directive ACP-Power of Mixed Crop And Livestock Farmer Advance Directive Response Recorded Date/ Time Living Will No March 21, 2022 10:00am Power of Mixed Crop And Livestock Farmer No March 21 10:00am Advance Directive Response Recorded Date/ Time Living Will No March 23, 2022 11:01am Power of Mixed Crop And Livestock Farmer No March 23 11:01am Latest Code Status on File Code Status Date Activated Date Inactivated Comments Full Code 04/06/2022 12:51 PM Latest Code Status on File Code Status Date Activated Date Inactivated Comments Full Code 04/06/2022 12:51 PM 04/07/2022 2:34 AM Latest Code Status on File Code Status Date Activated Date Inactivated Comments Full Code 04/06/2022 12:51 PM 04/07/2022 2:34 AM Latest Code Status on File Code Status Date Activated Date Inactivated Comments Full Code 11/21/2022 4:16 PM 11/22/2022 4:36 PM Latest Code Status on File Code Status Date Activated Date Inactivated Comments Full Code 11/21/2022 4:16 PM 11/22/2022 4:36 PM Code Status History Code Status Date Activated Date Inactivated Comments Full Code 11/21/2022 5:52 AM 11/21/2022 4:16 PM Date Activated Date Inactivated Comments 11/21/2022 4:16 PM 11/22/2022 4:36 PM Date Activated Date Inactivated Comments 11/21/2022 5:52 AM 11/21/2022 4:16 PM Date Activated Date Inactivated Comments 11/21/2022 4:16 PM 11/22/2022 4:36 PM Date Activated Date Inactivated Comments 11/21/2022 5:52 AM 11/21/2022 4:16 PM Advance Directive Response Recorded Date/ Time Do you have a Healthcare Power of Mixed Crop And Livestock Farmer? No January 27, 2025 7:32pm Chief Complaint and Reason for Visit Chief Complaint PAPILLAEDEFA Unspecified papilledema LEGS LOCKED UP Chief Complaint LEGS LOCKED UP GENERALIZED BODY ACHES Chief Complaint LEGS LOCKED UP GENERALIZED BODY ACHES COVID SX Chief Complaint Admit Date ABD PAIN January 27, 2025 6:20p m Reason for Referral Specialty Diagnoses / Procedures Referred By Contsandeep t Referred To Contact Radiology Diagnoses Generalized abdominal pain Procedures US ABDOMEN COMPLETE Claudine Ambrosio, SOLID WASTE MANAGEMENT ENGINEER - DRILLING ENGINEERING MANAGER [address] [place] [address] Referral ID Status Reason Start Date Expiration Date Visits Re quested Visits Authorized [id number] Open 03/01/2022 03/01/2023 1 1 Specialty Diagnoses / Procedures Referred By Contac t Referred To Contact Obstetrics and Gynecology Diagnoses Abnormal menses Procedures US Pelvic Transabdominal and Transvaginal Sudha Waters, CNM [address] [id number] Referral ID Status Reason Start Date Expiration Date V isits Requested Visits Authorized [id number] Authorized 08/02/2022 08/02/2023 1 1 Specialty Diagnoses / Procedures Referred By Contac t Referred To Contact Cardiology Diagnoses Syncope, unspecified syncope type Trang Castillo, HIDE CURER [address] [place] [address] [place] [address] Referral ID Status Reason Start Date Expiration Date V isits Requested Visits Authorized [id number] Authorized 08/16/2023 08/15/2024 1 1 Specialty Diagnoses / Procedures Referred By Contac t Referred To Contact Cardiology Diagnoses Syncope, unspecified syncope type Abnormal EKG Procedures Extended Holter Monitor (3-7 days) Faith Taylor MD [address] [place] [id number] Referral ID Status Reason Start Date Expiration Date V isits Requested Visits Authorized [id number] Pending Review 09/09/2023 09/08/2024 1 1 Specialty Diagnoses / Procedures Referred By Contac t Referred To Contact Cardiology Diagnoses Syncope, unspecified syncope type Abnormal EKG Procedures Echocardiogram complete Faith Taylor MD [address] [place] [id number] Referral ID Status Reason Start Date Expiration Date V isits Requested Visits Authorized [id number] Authorized 09/09/2023 09/08/2024 1 1 Specialty Diagnoses / Procedures Referred By Contac t Referred To Contact MR IMAGING Diagnoses Migraine with aura and without status migrainosus, not intractable Bilateral occipital neuralgia Chiari malformation type I (HCC) Procedures MRI BRAIN WO/W IVCON MRI BRAIN BRAIN STEM W/O W/CONTRAST MATERIAL Alex Cummins, SOLID WASTE MANAGEMENT ENGINEER.HIDE CURER [address] [place] [address] [place] [id number] Referral ID Status Reason Start Date Expiration Date V isits Requested Visits Authorized [id number] Closed Auto-Generate d Referral 11/28/2023 09/01/2024 1 1 Specialty Diagnoses / Procedures Referred By Contac t Referred To Contact [facility] Diagnoses Migraine with aura and without status migrainosus, not intractable Imbalance Procedures CONSULT TO PHYSICAL THERAPY PHYSICAL THERAPY EVALUATION HIGH COMPLEX 45 MINS Aspen Martinez, SOLID WASTE MANAGEMENT ENGINEER.HIDE CURER [address] [place] [address] [facility] [place] [address] [place] [address] Referral ID Status Reason Start Date Expiration Date Visits Requested Visits Authorized [id number] Pending Review Auto-Generat ed Referral 01/21/2024 01/20/2025 1 1 Specialty Diagnoses / Procedures Referred By Contac t Referred To Contact Hematology/Oncology / [facility]MENT Diagnoses Leukopenia, unspecified type Thrombocytopenia (HCC) Procedures CONSULT TO HEMATOLOGY/ONCOLOGY OFFICE/OUTPATIENT [facility] 60 MINUTES Cem Boggs, DO [address] [place] [address] Bianka Parra, [address] [place] [address] Referral ID Status Reason Start Date Expiration Date Visits Requested Visits Authorized [id number] Authorized PCP Requested Referral 02/05/2024 02/04/2025 1 1 Specialty Diagnoses / Procedures Referred By Contac t Referred To Contact [facility] Diagnoses Vaginismus Procedures CONSULT TO PHYSICAL THERAPY PHYSICAL THERAPY EVALUATION HIGH COMPLEX 45 MINS Daniel Olivo APRN.[facility] [address] [place] [address] [facility] [place] [address] [place] [address] Referral ID Status Reason Start Date Expiration Date V isits Requested Visits Authorized [id number] Closed Auto-Generate d Referral 02/19/2024 02/18/2025 1 0 Specialty Diagnoses / Procedures Referred By Contac t Referred To Contact Neurology Diagnoses Syncope, unspecified syncope type Tremors of nervous system Procedures CONSULT TO NEUROLOGY OFFICE/OUTPATIENT [facility] 60 MINUTES Cem Boggs, DO [address] [place] [address] Referral ID Status Reason Start Date Expiration Date Visits Requested Visits Authorized [id number] Authorized PCP Requested Referral 04/13/2024 04/13/2025 1 1 Specialty Diagnoses / Procedures Referred By Contac t Referred To Contact Diagnoses Migraine with aura and without status migrainosus, not intractable Aspen Martinez, SOLID WASTE MANAGEMENT ENGINEER.HIDE CURER [address] [place] [address] Referral ID Status Reason Start Date Expiration Date V isits Requested Visits Authorized [id number] Pending Review 1 1 Referral ID Status Reason Start Date Expiration Date V isits Requested Visits Authorized [id number] Pending Review 1 1 Specialty Diagnoses / Procedures Referred By Contac t Referred To Contact Neurosurgery Diagnoses Chiari malformation type I (HCC) Procedures CONSULT TO NEUROSURGERY OFFICE/OUTPATIENT [facility] 60 MINUTES Aspen Martinez, SOLID WASTE MANAGEMENT ENGINEER.HIDE CURER [address] [place] [address] Referral ID Status Reason Start Date Expiration Date Visits Requested Visits Authorized [id number] Authorized PCP Requested Referral 09/11/2024 09/11/2025 1 1 Additional Source Comments INFORMATION SOURCE (unrecogn ized section and content) DATE CREATED AUTHOR 01/28/2021 [facility] DATE CREATED AUTHOR AUTHOR'S ORGANIZ ATION 04/14/2022 [facility] DATE CREATED AUTHOR AUTHOR'S ORGANIZ ATION 06/28/2022 [facility] DATE CREATED AUTHOR AUTHOR'S ORGANIZ ATION 12/19/2022 [facility] DATE CREATED AUTHOR AUTHOR'S ORGANIZ ATION 09/19/2023 [facility] DATE CREATED AUTHOR AUTHOR'S ORGANIZ ATION 11/06/2023 [facility] DATE CREATED AUTHOR AUTHOR'S ORGANIZ ATION [facility] DATE CREATED AUTHOR AUTHOR'S ORGANIZ ATION 02/01/2025 [facility] DATE CREATED AUTHOR AUTHOR'S ORGANIZ ATION 02/04/2025 [facility] DATE CREATED AUTHOR AUTHOR'S ORGANIZ ATION 06/29/2025 [facility] DATE CREATED AUTHOR AUTHOR'S ORGANIZ ATION 07/08/2025 [facility] Goals (unrecognized section and content) Goals may be documented in a n alternate sectionGoals may be documented in an alternate sectionGoals may be documented in an alternate sectionGoals may be documented in an alternate section Care Teams (unrecognized sec tion and content) Entry Level Web Developer Relationship Specialty Start Date End Date Steven Rashid APRN - HIDE CURER [address] [place] [address] PCP - General Nurse Practitioner 02/15/22 Entry Level Web Developer Relationship Specialty Start Date End Date Steven Rashid APRN - HIDE CURER [address] [place] [address] PCP - General Nurse Practitioner 02/15/22 Entry Level Web Developer Relationship Specialty Start Date End Date Steven Rashid APRN - HIDE CURER [address] [place] [address] PCP - General Nurse Practitioner 02/15/22 Entry Level Web Developer Relationship Specialty Start Date End Date Steven Rashid APRN HIDE CURER [address] [place] [address] PCP - General Nurse Practitioner 02/15/22 Entry Level Web Developer Relationship Specialty Start Date End Date Steven Rashid APRN - HIDE CURER [address] [place] [address] PCP - General Nurse Practitioner 02/15/22 Entry Level Web Developer Relationship Specialty Start Date End Date Steven Rashid APRN - [facility] [address] [place] [address] PCP - General Nurse Practitioner 02/15/22 Entry Level Web Developer Relationship Specialty Start Date End Date Steven Rashid CNP [address] [place] [address] PCP - General Nurse Practitioner 08/02/22 Entry Level Web Developer Relationship Specialty Start Date End Date Steven Rashid [facility] [place] [address] PCP - General Nurse Practitioner 08/02/22 Entry Level Web Developer Relationship Specialty Start Date End Date Steven aRshid [address] [place] [phone] PCP - General 02/15/22 Entry Level Web Developer Relationship Specialty Start Date End Date Steven Rashid [address] [place] [phone] PCP - General 02/15/22 Entry Level Web Developer Relationship Specialty Start Date End Date Steven Rashid [address] [place] [phone] PCP - General 02/15/22 Rakesh Salazar MD [address] [place] [address] [address] [place] [address] Surgeon General Surgery 11/22/22 Entry Level Web Developer Relationship Specialty Start Date End Date Steven Rashid [address] [place] [phone] PCP - General 02/15/22 Rakesh Salazar MD [address] [place] [address] [address] [place] [address] Surgeon General Surgery 11/22/22 Entry Level Web Developer Relationship Specialty Start Date End Date Steven Rashid [address] [place] [address] PCP - General 02/15/22 Rakesh Salazar MD [address] [facility] [address] [place] [address] Surgeon General Surgery 11/22/22 Entry Level Web Developer Relationship Specialty Start Date End Date Steven aRshid [address] [place] [address] PCP - General 02/15/22 Rakesh Salazar MD [address] [facility] [address] [place], [place] [id number] Surgeon General Surgery 11/22/22 Entry Level Web Developer Relationship Specialty Start Date End Date Steven Rashid CNP [address] [place] [address] PCP - General Nurse Practitioner 08/02/22 Entry Level Web Developer Relationship Specialty Start Date End Date Steven Rashid CNP [address] [place] [address] PCP - General Nurse Practitioner 08/02/22 Entry Level Web Developer Relationship Specialty Start Date End Date Steven Rashid CNP [address] [place] [address] PCP - General Nurse Practitioner 08/02/22 Entry Level Web Developer Relationship Specialty Start Date End Date Steven Rashid [address] [place] [phone] PCP - General 02/15/22 01/21/23 Izabela Rivero MD [address] [place] [place] [address] PCP - General Family Medicine 01/22/23 Rakesh Salazar MD [address] [place] [address] [address] [place] [address] Surgeon General Surgery 11/22/22 Entry Level Web Developer Relationship Specialty Start Date End Date Izabela Rivero MD [address] [place] [address] PCP - General Family Medicine 01/22/23 Rakesh Salazar MD [address] [place] [address] [address] [place] [address] Surgeon General Surgery 11/22/22 Entry Level Web Developer Relationship Specialty Start Date End Date Izabela Rivero MD [address] [place] [place] [address] PCP - General Family Medicine 01/17/23 Entry Level Web Developer Relationship Specialty Start Date End Date Steven Rashid APRN.MAXINE [address] [place] [address] PCP - General Family Medicine 07/03/19 Entry Level Web Developer Relationship Specialty Start Date End Date Izabela Rivero MD [address] [place] [address] PCP - General Family Medicine 01/22/23 Rakesh Salazar MD [address] [place] [address] Surgeon General Surgery 11/22/22 Entry Level Web Developer Relationship Specialty Start Date End Date Izabela Rivero MD [address] [place] [address] PCP - General Family Medicine 01/22/23 Rakesh Salazar MD [address] [place] [address] [address] [place] [address] Surgeon General Surgery 11/22/22 Entry Level Web Developer Relationship Specialty Start Date End Date Izabela Rivero MD [address] [place] [address] PCP - General Family Medicine 01/17/23 Entry Level Web Developer Relationship Specialty Start Date End Date Izabela Rivero MD [address] [place] [address] PCP - General Family Medicine 01/17/23 Entry Level Web Developer Relationship Specialty Start Date End Date Izabela Rivero MD [address] [place] [address] PCP - General Family Medicine 01/17/23 Entry Level Web Developer Relationship Specialty Start Date End Date Izabela Rivero MD [address] [place] [address] PCP - General Family Medicine 01/17/23 Entry Level Web Developer Relationship Specialty Start Date End Date Izabela Rivero MD [address] [place] [address] PCP - General Family Medicine 01/17/23 Entry Level Web Developer Relationship Specialty Start Date End Date Steven Rashid CNP [address] [place] [address] PCP - General Family Medicine 07/03/19 Entry Level Web Developer Relationship Specialty Start Date End Date Izabela Rivero MD [address] [place] [address] PCP - General Family Medicine 01/17/23 Entry Level Web Developer Relationship Specialty Start Date End Date Stveen Rashid CNP [address] [place] [address] PCP - General Family Medicine 07/03/19 Entry Level Web Developer Relationship Specialty Start Date End Date Steven Rashid CNP [address] [place] [address] PCP - General Family Medicine 07/03/19 Entry Level Web Developer Relationship Specialty Start Date End Date Steven Rashid CNP [address] [place] [address] PCP - General Family Medicine 07/03/19 Entry Level Web Developer Relationship Specialty Start Date End Date Izabela Rivero MD [address] [place], [place] [phone] PCP - General Family Medicine 01/22/23 Rakesh Salazar MD [address] [place] [address] Surgeon General Surgery 11/22/22 Entry Level Web Developer Relationship Specialty Start Date End Date Izabela Rivero MD [address] [place] [place] [address] PCP - General Family Medicine 01/22/23 Rakesh Salazar MD [address] [place] [address] [address] [place] [address] Surgeon General Surgery 11/22/22 Entry Level Web Developer Relationship Specialty Start Date End Date Steven Rashid CNP [address] [place] [address] PCP - General Family Medicine 07/03/19 Entry Level Web Developer Relationship Specialty Start Date End Date Steven Rashid CNP [address] [place] [address] PCP - General Family Medicine 07/03/19 Entry Level Web Developer Relationship Specialty Start Date End Date Steven Rashid CNP [address] [place] [address] PCP - General Family Medicine 07/03/19 Entry Level Web Developer Relationship Specialty Start Date End Date Steven Rashid CNP [address] [place] [address] PCP - General Family Medicine 07/03/19 Entry Level Web Developer Relationship Specialty Start Date End Date Steven Rashid CNP [address] [place] [address] PCP - General Family Medicine 07/03/19 Entry Level Web Developer Relationship Specialty Start Date End Date Steven Rashid CNP [address] [place] [address] PCP - General Family Medicine 07/03/19 Entry Level Web Developer Relationship Specialty Start Date End Date Steven Rashid CNP [address] [place] [address] PCP - General Family Medicine 07/03/19 Entry Level Web Developer Relationship Specialty Start Date End Date Steven Rashid CNP [address] [place] [address] PCP - General Family Medicine 07/03/19 Entry Level Web Developer Relationship Specialty Start Date End Date Steven Rashid CNP [address] [place] [address] PCP - General Family Medicine 07/03/19 Entry Level Web Developer Relationship Specialty Start Date End Date Steven Rashid CNP [address] [place] [address] PCP - General Family Medicine 07/03/19 Entry Level Web Developer Relationship Specialty Start Date End Date Steven Rashid CNP [address] [place] [address] PCP - General Family Medicine 07/03/19 Entry Level Web Developer Relationship Specialty Start Date End Date Izabela Rivero MD [address] [place] [place] [address] PCP - General Family Medicine 01/22/23 Rakesh Salazar MD [address] [place] [address] Surgeon General Surgery 11/22/22 Entry Level Web Developer Relationship Specialty Start Date End Date Steven Rashid CNP [address] [place] [phone] PCP - General Family Medicine 07/03/19 Entry Level Web Developer Relationship Specialty Start Date End Date Steven Rashid CNP [address] [place] [address] PCP - General Family Medicine 07/03/19 Entry Level Web Developer Relationship Specialty Start Date End Date Steven Rashid CNP [address] [place] [phone] (Work) PCP - General Family Medicine 07/03/19 Entry Level Web Developer Relationship Specialty Start Date End Date Cem Boggs DO [address] [place] [address] PCP - General Family Medicine 04/13/24 Entry Level Web Developer Relationship Specialty Start Date End Date Cem Boggs DO [address] [place] [address] PCP - General Family Medicine 04/13/24 Entry Level Web Developer Relationship Specialty Start Date End Date Cem Boggs DO [address] [place] [address] PCP - General Family Medicine 04/13/24 Entry Level Web Developer Relationship Specialty Start Date End Date Cem Boggs DO [address] [place] [address] PCP - General Family Medicine 04/13/24 Entry Level Web Developer Relationship Specialty Start Date End Date Cem Boggs DO [address] [place] [address] PCP - General Family Medicine 04/13/24 Entry Level Web Developer Relationship Specialty Start Date End Date Cem Boggs DO [address] [place] [address] PCP - General Family Medicine 04/13/24 Entry Level Web Developer Relationship Specialty Start Date End Date Izabela Rivero MD [address] [place] [place] [address] PCP - General Family Medicine 01/22/23 Rakesh Salazar MD [address] [place] [address] Surgeon General Surgery 11/22/22 Entry Level Web Developer Relationship Specialty Start Date End Date Cem Boggs DO [address] [place] [address] PCP - General Family Medicine 04/13/24 Entry Level Web Developer Relationship Specialty Start Date End Date Cem Boggs DO [address] [place] [address] PCP - General Family Medicine 04/13/24 Entry Level Web Developer Relationship Specialty Start Date End Date [address] [phone] PCP - General 02/15/22 Entry Level Web Developer Relationship Specialty Start Date End Date [address] [phone] PCP - General 02/15/22 Entry Level Web Developer Relationship Specialty Start Date End Date [address] [address] PCP - General 02/15/22 Entry Level Web Developer Relationship Specialty Start Date End Date [address] [phone] PCP - General 02/15/22 Entry Level Web Developer Relationship Specialty Start Date End Date [address] [phone] PCP - General 02/15/22 Entry Level Web Developer Relationship Specialty Start Date End Date [address] [phone] PCP - General 02/15/22 Entry Level Web Developer Relationship Specialty Start Date End Date [address] [phone] PCP - General 02/15/22 Entry Level Web Developer Relationship Specialty Start Date End Date Cem Boggs DO [address] [place], [place] [phone] PCP - General Family Medicine 08/19/[address] [place] [address] Surgeon General Surgery 11/22/22 Entry Level Web Developer Relationship Specialty Start Date End Date Cem Boggs DO [address] [place] [address] PCP - General Family Medicine 08/19/24 Rakesh Salazar MD [address] [place] [address] [address] [place] [address] Surgeon General Surgery 11/22/22 Entry Level Web Developer Relationship Specialty Start Date End Date Cem Boggs DO [address] [place] [address] PCP - General Family Medicine 04/13/24 Entry Level Web Developer Relationship Specialty Start Date End Date Cem Boggs DO [address] [place] [address] PCP - General Family Medicine 08/19/24 Rakesh Salazar MD [address] [place] [address] [address] [place] [address] Surgeon General Surgery 11/22/22 Entry Level Web Developer Relationship Specialty Start Date End Date Cem Boggs DO [address] [place] [address] PCP - General Family Medicine 08/19/24 Rakesh Salazar MD [address] [place] [address] Surgeon General Surgery 11/22/22 Entry Level Web Developer Relationship Specialty Start Date End Date Cem Boggs DO [address] [facility] [place] [address] PCP - General Family Medicine 04/13/24 Entry Level Web Developer Relationship Specialty Start Date End Date Cem Boggs DO [address] [facility] [place] [address] PCP - General Family Medicine 04/13/24 Entry Level Web Developer Relationship Specialty Start Date End Date Cem Boggs DO [address] [place], [place] [phone] PCP - General Family Medicine 08/19/24 Rakesh Salazar MD [address] [place] [address] [place] [address] Surgeon General Surgery 11/22/22 Entry Level Web Developer Relationship Specialty Start Date End Date Cem Boggs DO [address] [place] [address] PCP - General Family Medicine 08/19/24 Rakesh Salazar MD [address] [place] [address] [address] [place] [address] Surgeon General Surgery 11/22/22 Entry Level Web Developer Relationship Specialty Start Date End Date Cem Boggs DO [address] [facility] [place] [address] PCP - General Family Medicine 04/13/24 Entry Level Web Developer Relationship Specialty Start Date End Date Cem Boggs DO [address] [place] [address] PCP - General Family Medicine 04/13/24 Entry Level Web Developer Relationship Specialty Start Date End Date Cem Boggs DO [address] [place] [address] PCP - General Family Medicine 08/19/24 Rakesh Salazar MD [address] [place] [address] [address] [place] [address] Surgeon General Surgery 11/22/22 Entry Level Web Developer Relationship Specialty Start Date End Date Cem Boggs DO [address] [place] [address] PCP - General Family Medicine 04/13/24 Team Status: Active Member Role Status Dates Dr. Cem Boggs DO Primary Care Provider Active Team Status: Inactive Member Role Status Dates Dr. Cem Boggs DO Primary Care Provider Active Start: January 27, 2025 End: January 27, 2025 Dr. Avi Russo MD Emergency Provider Active Sta rt: January 27, 2025 End: January 27, 2025 Entry Level Web Developer Relationship Specialty Start Date End Date Cem Boggs DO [address] [place] [address] PCP - General Family Medicine 08/19/24 Rakesh Salazar MD [address] [place] [address] [address] [place], [place] [id number] Surgeon General Surgery 11/22/22 Entry Level Web Developer Relationship Specialty Start Date End Date Cem Boggs DO [address] [place] [address] PCP - General Family Medicine 08/19/24 Rakesh Salazar MD [address] [place] [address] [address] [place] [address] Surgeon General Surgery 11/22/22 Entry Level Web Developer Relationship Specialty Start Date End Date Cem Boggs DO [address] [place] [address] PCP - General Family Medicine 04/13/24 Entry Level Web Developer Relationship Specialty Start Date End Date Cem Boggs DO [address] [place], [place] [id number] PCP - General Family Medicine 08/19/24 Rakesh Salazar MD [address] [place] [address] [address] [place], [place] [id number] Surgeon General Surgery 11/22/22 Entry Level Web Developer Relationship Specialty Start Date End Date Cem Boggs DO [address] [place] [address] PCP - General Family Medicine 08/19/24 Rakesh Salazar MD [address] [place] [address] [address] [place] [address] Surgeon General Surgery 11/22/22 Reason for Visit (unrecogniz ed section and content) Reason Comments New Patient Specialty Diagnoses / Procedures Referred By Contac t Referred To Contact Cardiology Diagnoses Postural orthostatic tachycardia syndrome (POTS) Procedures CA OFFICE/OP CONSLTJ NEW/EST PT LOW MDM 30 MINUTES Cem Boggs DO [address] [place] [address] Phone: tel: fax: See Velasquez MD [address] [place] [address] [address] [place] [address] Phone: tel: fax: Referral ID Status Reason Start Date Expiration Date V isits Requested Visits Authorized [id number] Closed Specialty Services Required 08/19/2024 02/15/2025 1 1 Specialty Diagnoses / Procedures Referred By Contac t Referred To Contact Hematology/Oncology / [facility] DEPARTMENT Diagnoses Leukopenia, unspecified type Thrombocytopenia (HCC) Procedures CONSULT TO HEMATOLOGY/ONCOLOGY OFFICE/OUTPATIENT NEW HIGH MDM 60 MINUTES Cem Boggs, DO [address] [place] [address] Bianka Parra, DO [address] [place] [address] Referral ID Status Reason Start Date Expiration Date V isits Requested Visits Authorized [id number] Closed PCP Requested Referral 02/05/2024 02/04/2025 1 1 Reason Comments Physical Therapy Specialty Diagnoses / Procedures Referred By Contac t Referred To Contact PHYSICAL THERAPY Diagnoses Migraine with aura and without status migrainosus, not intractable Imbalance Procedures CONSULT TO PHYSICAL THERAPY PHYSICAL THERAPY EVALUATION HIGH COMPLEX 45 MINS Aspen Martinez, SOLID WASTE MANAGEMENT ENGINEER.HIDE CURER [address] [place] [address] Kristie Rosenthal, PT [address] [place] [address] Referral ID Status Reason Start Date Expiration Date Visits Requested Visits Authorized [id number] Authorized Auto-Generat ed Referral 09/02/2023 09/01/2024 100 100 Reason Comments BENDER MACHINE Problem Abnormal bleeding, p atient has had 3 menstrual cycles in the past month. Last cycle began 07/17/2022 and is still currently bleeding. Reason Comments Contraception Depo inj Specialty Diagnoses / Procedures Referred By Contac t Referred To Contact Diagnoses Morbid (severe) obesity due to excess calories (HCC) Morbid (severe) obesity due to excess calories (HCC) [E66.01] Procedures CA LAPS GSTR RSTCV PX W/BYP TONIO-EN-Y LIMB <150 CM CA UNLISTED LAPAROSCOPIC PROCEDURE LIVER CA LAPS RPR PARAESPHGL HRNA INCL FUNDPLSTY W/O MESH LAPAROSCOPIC TONIO-EN-Y GASTRIC BYPASS WITH LIVER WEDGE BIOPSY, HIATAL HERNIA REPAIR, POSSIBLE OPEN UNLISTED LAPAROSCOPIC PROCEDURE LIVER Rakesh Salazar MD [address] [facility] [address] [place] [address] [facility] [address] [place] [address] [place] [address] Referral ID Status Reason Start Date Expiration Date Visits Re quested Visits Authorized [id number] 1 1 Reason Comments Weight Management Final pre op Reason Comments Bariatrics Post Op Follow-up 1W Reason Comments Bariatrics Post Op Follow-up 1M Reason Comments Contraception Depo shot Reason Comments Bariatrics Post Op Follow-up 3M Reason Comments Acute Visit Back pain x2 daysWas n't really doing anything got up and dressed for work and tried to walk it off and it didn't help Reason Comments Medication Problem Reason Onset Date Comments Abnormal Lab 06/17/2023 High Vitamin B12 , Vitamin D, Ferritin Reason Comments Bariatrics Post Op Follow-up 7M Reason Comments Ankle Injury Slipped on steps on ice last 07/04 Reason Comments Follow-up F/u left ankle fx, p t has no concerns at this moment. She states her ankle has been feeling good except her achilles tendon catches sometimes. New xrays today Reason Comments Annual Exam Annual exam wants de po today due for pap Reason Comments Loss of Consciousness Pt reports hx of m igraines, reports passing out episodes the last couple yrs. Pt had gastric bypass in October. Reports ears ringing, blurred vision, light headedness and heart racing. Pt reports she does not completely pass out every time. Pt had a table tilt test a cpl yrs ago and found inner ear damage, reports feeling lightheaded all the time. Reason Comments Follow-up Left ankle f/u, pt s tates doing better still some pain when walking but goes away when elevated. New xrays today Reason Comments Establish Care Per Trang chandra syncope Specialty Diagnoses / Procedures Referred By Saadia t Referred To Contact Cardiology Diagnoses Syncope, unspecified syncope type Trang Castillo, HIDE CURER [address] [place] [address] [facility] [address] [place], [place] [address] [place] [address] Referral ID Status Reason Start Date Expiration Date Visits Re quested Visits Authorized [id number] Closed 08/16/2023 08/15/2024 1 1 Reason Comments Follow-up Lightheaded, dizzy Reason Comments Headache Reason Comments Weight Management NEW Specialty Diagnoses / Procedures Referred By Contac t Referred To Contact MR IMAGING Diagnoses Migraine with aura and without status migrainosus, not intractable Bilateral occipital neuralgia Chiari malformation type I (HCC) Procedures MRI BRAIN WO/W IVCON MRI BRAIN BRAIN STEM W/O W/CONTRAST MATERIAL Alex Cummins, DEE.HIDE CURER [address] [place] [address] [place] [address] Referral ID Status Reason Start Date Expiration Date V isits Requested Visits Authorized [id number] Closed Auto-Generate d Referral 11/28/2023 09/01/2024 1 1 Reason Comments Established Patient Reason Comments Insurance Authorization Emgality 120MG/M L auto-injectors (migraine) Reason Comments PT Eval Reason Comments Results Reason Comments Well Woman Reason Comments New Patient Establish care previ ous pcp was Dr. Fermin through [facility] Reason Onset Date Comments Appointment Request 11/26/2023 Reason Comments Headache And fainting spells. Gets frequent yawning and then got weak and collapsed on the floor but co-workers caught her. Over the last year has happened 5-7 times. This last time was more concerning because she was not overheated but BP was 98/80, the day before at psych office BP was 105/79. Did not feel any palpitations during episode. Vision and hearing were off when it happened. Family history of stroke/parkinson has concerns with her migraines and frequency, has lost a lot weight Reason Comments Follow Up Reason Comments Syncope Tremor Dizziness Specialty Diagnoses / Procedures Referred By Contac t Referred To Contact Neurology Diagnoses Syncope, unspecified syncope type Tremors of nervous system Procedures CONSULT TO NEUROLOGY OFFICE/OUTPATIENT NEW HIGH MDM 60 MINUTES Cem Boggs DO [address] [place] [address] Referral ID Status Reason Start Date Expiration Date V isits Requested Visits Authorized [id number] Closed PCP Requested Referral 04/13/2024 04/13/2025 1 1 Reason Comments Lab Orders Reason Onset Date Comments Depo Provera Injection 05/13/2024 Reason Comments Bariatrics Post Op Follow-up Pop Reason Onset Date Comments nurse visit-depo Depo Provera Injection 08/06/2024 Reason Onset Date Comments Nutrition Counseling 11/01/2022 Pre op diet Reason Onset Date Comments Medication Question 10/31/2022 Reason Onset Date Comments Anticoagulation 10/30/2022 Lovenox Reason Onset Date Comments Abnormal Lab 11/09/2022 Elevated potassi um Reason Comments Insurance Authorization EMGALITY EMGALITY Reason Comments New Patient WLS 10/2022 highest w eight before surgery was 303 lb. Pt been sticking to diet and exercising when she can to maintain weight. Reason Onset Date Comments Depo Provera Injection 10/29/2024 Reason Onset Date Comments Surgery Scheduling 11/04/2024 Said-Plastic Reason Comments New Patient Specialty Diagnoses / Procedures Referred By Saadia lopez Referred To Contact Neurosurgery Diagnoses Chiari malformation type I (HCC) Procedures CONSULT TO NEUROSURGERY OFFICE/OUTPATIENT NEW HIGH MDM 60 MINUTES Aspen Martinez APRN.HIDE CURER Referral ID Status Reason Start Date Expiration Date V isits Requested Visits Authorized [id number] Closed PCP Requested Referral 09/11/2024 09/11/2025 1 1 Reason Onset Date Comments ED Follow-up 01/27/2025 [facility] 2024 Reason Comments Bariatrics Post Op Follow-up POP Annual Reason Comments Well Woman Reason Comments Refill Request Reason Onset Date Comments Depo Provera Injection 04/15/2025 Reason Comments Bariatrics Post Op Follow-up POP F/U Reason Comments Patient Question Reason Comments Bariatrics Post Op Follow-up Pop fu Scheduled Active and Recently Administ ered Medications (unrecognized section and content) Medication Order 11/20/2022 11/21/2022 11/22/2022 acetaminophen (Tylenol) tablet 1,000 mg (COMPLETED) 1,000 mg, Oral, Once, On Sat11/21/22 at 0600, For 1 dose, Preprocedure, Maximum dose of acetaminophen is 4000 mg from all sources in 24 hours. Do not administer if patient has taken tylenol <4 hours earlier. Do not give if contraindicated ie. patient has active liver disease or cirrhosis. 0614 (Given - Provider: Yvrose Baker RN) albuterol (2.5 MG/3ML) 0.083% nebulizer solution 2.5 mg (CANCELED) 2.5 mg, Nebulization, 4 times daily, First dose (after last modification) on Sat11/22/22 at 1200, Phase II/On Unit 1131 (Given - Provid er: Miguelina Alex RCP) ARIPiprazole (Abilify) tablet 2 mg 2 mg, Oral, Daily, First dose on Sat11/22/22 at 0900, Phase II/On Unit 0838 (Given - Provid er: Aishwarya Garcia, GABE) ceFAZolin in sodium chloride 0.9% (Ancef) IVPB 3,000 mg (COMPLETED) 3,000 mg, IntraVENous, Administer over 30 Minutes, Boat Diesel Motor Mechanic to O.R., On Sat11/21/22 at 0600, For 1 dose, Preprocedure, Administer within 1 hour prior to incision. Repeat in 3-4 hours after initial dose if still intra-op. Default Settings:Auto-dosed by Weight Boat Diesel Motor Mechanic to O.R x 1 dose Auto-dosed: Pt Wt<119.9kg-2gm, >120kg-3gm premix bag, Suspected Indication (Select all that apply): Surgical Prophylaxis 0852 (Given - Provider: David Cason CRNA)1045 (Anesthesia Volume Adjustment - Provider: David Cason CRNA) celecoxib (CeleBREX) capsule 400 mg (COMPLETED) 400 mg, Oral, Once, On Sat11/21/22 at 0600, For 1 dose, Preprocedure, Avoid with sulfa allergy or creatinine greater than 1.5. Avoid severe hepatic impairment or renal transplant. Avoid if Age > 69. 0614 (Given - Provider: Yvrose Baker RN) enoxaparin (Lovenox) syringe 30 mg 30 mg, SubCUTAneous, Every 12 hours scheduled (2 times per day), First dose on Sat11/21/22 at 2100, Phase II/On Unit, Indication of Use: Prophylaxis-DVT/PE 2050 (Given - Provider: Jacqueline Calles RN) 0837 (Given - Provider: Aishwarya Garcia RN) famotidine (Pepcid) tablet 20 mg (COMPLETED) 20 mg, Oral, Once, On Sat11/21/22 at 0600, For 1 dose, Preprocedure 0614 (Given - Provider: Yvrose Baker RN) famotidine (Pepcid) tablet 20 mg 20 mg, Oral, 2 times daily, First dose on Nancy 11/22/22 at 0900 0837 (Given - Provid er: Aishwarya Garcia RN) gabapentin (Neurontin) capsule 100 mg (COMPLETED) 100 mg, Oral, Once, On Sat11/21/22 at 0600, For 1 dose, Preprocedure, For Age >69 or Low GFR. 0614 (Given - Provider: Yvrose Baker RN) heparin injection 5,000 Units (COMPLETED) 5,000 Units, SubCUTAneous, Once, On Sat11/21/22 at 0600, For 1 dose, Preprocedure 0614 (Given - Provider: Yvrose Baker RN) ketorolac (Toradol) injection 15 mg 15 mg, IntraVENous, Every 8 hours scheduled (3 times per day), First dose on Sat11/21/22 at 1400, For 3 days, Recovery & On Unit 1638 (Given - Provider: Jacqueline Calles RN - Comment: not on floor)2247 (Given - Provider: Jacqueline Calles RN) 0600 (Given - Provider: Emely Toledo RN)1400 (Canceled Entry - Provider: Automatic Discharge Provider - Comment: Automatically canceled at discontinue of medication order) pantoprazole (ProtoNix) injection 40 mg (CANCELED) 40 mg, IntraVENous, Administer over 2 Minutes, Daily, First dose on Sat11/21/22 at 1630, Phase II/On Unit 1637 (Given - Provider: Jacqueline Calles RN) sodium chloride 0.9% (NS) flush 10 mL 10 mL, IntraVENous, Every 12 hours scheduled (2 times per day), First dose on Sat11/21/22 at 2100, Phase II/On Unit 2100 (Not Given - Provider: Jacqueline Calles RN - Reason: IV Fluids Infusing) 0900 (Not Given - Provider: Aishwarya Garcia RN - Reason: IV Fluids Infusing) Continuous Medication Order 11/20/2022 11/21/2022 11/22/2022 dextrose 5 % and sodium chloride 0.45 % with KCl 20 mEq/L infusion 100 mL/hr, IntraVENous, Continuous, Starting on Sat11/21/22 at 1630, Phase II/On Unit 1705 (New Bag - Provider: Jacqueline Calles RN) 0830 (Rate/Dose Change - Provider: Aishwarya Garcia RN)1124 (New Bag - Provider: Aishwarya Garcia RN) lactated Ringer's (LR) infusion (CANCELED) 50 mL/hr, IntraVENous, Continuous, Starting on Sat11/21/22 at 0600, Preprocedure, Upon admission to sameday - please start iv if patient does not have iv access. Use 500ml NS for patients on dialysis. 0836 (New Bag - Provider: David Cason CRNA)1045 (Anesthesia Volume Adjustment - Provider: David Cason CRNA) lactated ringers infusion (CANCELED) 125 mL/hr, IntraVENous, Continuous, Starting on Sat11/21/22 at 1115, Recovery (only) 1201 (New Bag - Provider: Qi More RN) PRN Medication Order 11/20/2022 11/21/2022 11/22/2022 albuterol (2.5 MG/3ML) 0.083% nebulizer solution 2.5 mg 2.5 mg, Nebulization, 3 times daily PRN, wheezing, Starting on Nancy 11/22/22 at 1145 HYDROmorphone (Dilaudid) injection 0.25 mg(Linked Group 1) 0.25 mg, IntraVENous, Every 3 hours PRN, moderate pain (4-6), Starting on Sat11/21/22 at 1616, Phase II/On Unit, If oral and IV narcotics ordered, use oral first and only use IV if oral is ineffective or cannot take oral. Do Not give oral and IV within 1 hour of each other unless specifically ordered. 0114 (Given - Provid er: Jacqueline Calles RN) HYDROmorphone (Dilaudid) injection 0.5 mg(Linked Group 1) 0.5 mg, IntraVENous, Every 3 hours PRN, severe pain (7-10), Starting on 11/21/22 at 1616, Phase II/On Unit, If oral and IV narcotics ordered, use oral first and only use IV if oral is ineffective or cannot take oral. Do Not give oral and IV within 1 hour of each other unless specifically ordered. 0114 (See Alternativ e - Provider: Jacqueline Calles RN) HYDROmorphone (Dilaudid) injection 0.5 mg (CANCELED) 0.5 mg, IntraVENous, Every 5 min PRN, severe pain (7-10), Starting on Sat11/21/22 at 1059, For 4 doses, Recovery (only), Phase I and Phase II- Initial therapy for severe pain (7-10). Restricted to a 90 minute time frame starting when the patient can verbally state their pain score. If after 2 doses the pain score does not decrease by more than one point, then call the provider. If oral meds are utilized, do not return to initial therapy medications. 1109 (Given - Provider: Qi More RN) LORazepam (Ativan) injection 0.5 mg (COMPLETED) 0.5 mg, IntraVENous, Once PRN, for anxiety or muscle spasm., Starting on Sat11/21/22 at 1059, For 1 dose, Recovery (only), For IV doses dilute dose with 1ml NS. 1159 (Given - Provider: Qi More RN) ondansetron (Zofran) injection 4 mg(Linked Group 2) 4 mg, IntraVENous, Every 6 hours PRN, nausea, vomiting, Starting on Sat11/21/22 at 1616, Phase II/On Unit, 1st Line. Give IV if patient is unable to take orally. If inadequate response within 60 minutes, proceed to next-line agent or contact provider if no further options ordered. 1637 (Given - Provider: Jacqueline Calles RN) ondansetron ODT (Zofran-ODT) disintegrating tablet 4 mg(Linked Group 2) 4 mg, Oral, Every 8 hours PRN, nausea, vomiting, Starting on Sat11/21/22 at 1616, Phase II/On Unit, 1st Line. If inadequate response within 60 minutes, proceed to next-line agent or contact provider if no further options ordered. Patient should allow tablet to dissolve on tongue. Do not remove from blister pack until just before administering. 1637 (See Alternative - Provider: Jacqueline Calles RN) oxyCODONE-acetaminophen (Percocet) 5-325 MG per tablet 1 tablet(Linked Group 3) 1 tablet, Oral, Every 4 hours PRN, moderate pain (4-6), Starting on Nancy 11/22/22 at 0829, Maximum dose of acetaminophen is 4000 mg from all sources in 24 hours. 1123 (Given - Provid er: Aishwarya Garcia RN) oxyCODONE-acetaminophen (Percocet) 5-325 MG per tablet 2 tablet(Linked Group 3) 2 tablet, Oral, Every 4 hours PRN, severe pain (7-10), Starting on Nancy 11/22/22 at 0829, Maximum dose of acetaminophen is 4000 mg from all sources in 24 hours. 1123 (See Alternativ e - Provider: Aishwarya Garcia RN) sodium chloride 0.9 % infusion 5-250 mL/hr, IntraVENous, PRN, if patient receiving piggyback infusions and maintenance fluids are not ordered OR KVO fluids to protect IV site / prevent frequent line interruptions/ long duration, Starting on Sat11/21/22 at 1616, Phase II/On Unit, For piggyback infusion, administer at same rate as piggyback for a total of 25 mL. Enter 25 mL into dose field and piggyback rate into rate field of order. If piggyback is infusing at a rate less than 100 mL/hr, enter 25 mL into dose field and 100 mL/hr into rate field of order. For KVO fluids, enter rate of 20 mL/hr or less into rate field of order. sodium chloride 0.9 % irrigation solution (CANCELED) As needed, Starting on Sat11/21/22 at 0916, Intraprocedure 0916 (Given - Provider: Rakesh Salazar MD) sodium chloride 0.9% (NS) flush 10 mL 10 mL, IntraVENous, PRN, line care, Starting on Sat11/21/22 at 1616, Phase II/On Unit, After every IV line use sterile water irrigation solution (CANCELED) As needed, Starting on Sat11/21/22 at 0916, Intraprocedure 0916 (Given - Provider: Rakesh Salazar MD) Linked Groups Order Group 1: HYDROmorphone (Dilaudid) injection 0.25 mgJump to med 0.25 mg, IntraVENous, Every 3 hours PRN, moderate pain (4-6), Starting on Sat11/21/22 at 1616, Phase II/On Unit
If oral and IV narcotics ordered, use oral first and only use IV if oral is ineffective or cannot take oral. Do Not give oral and IV within 1 hour of each other unless specifically ordered.
Or HYDROmorphone (Dilaudid) injection 0.5 mgJump to med 0.5 mg, IntraVENous, Every 3 hours PRN, severe pain (7-10), Starting on Sat11/21/22 at 1616, Phase II/On Unit
If oral and IV narcotics ordered, use oral first and only use IV if oral is ineffective or cannot take oral. Do Not give oral and IV within 1 hour of each other unless specifically ordered.
Group 2: ondansetron ODT (Zofran-ODT) disintegrating tablet 4 mgJump to med 4 mg, Oral, Every 8 hours PRN, nausea, vomiting, Starting on Sat11/21/22 at 1616, Phase II/On Unit
1st Line. If inadequate response within 60 minutes, proceed to next-line agent or contact provider if no further options ordered. Patient should allow tablet to dissolve on tongue. Do not remove from blister pack until just before administering.
Or ondansetron (Zofran) injection 4 mgJump to med 4 mg, IntraVENous, Every 6 hours PRN, nausea, vomiting, Starting on Sat11/21/22 at 1616, Phase II/On Unit
1st Line. Give IV if patient is unable to take orally. If inadequate response within 60 minutes, proceed to next-line agent or contact provider if no further options ordered.
Group 3: oxyCODONE-acetaminophen (Percocet) 5-325 MG per tablet 1 tabletJump to med 1 tablet, Oral, Every 4 hours PRN, moderate pain (4-6), Starting on Nancy 11/22/22 at 0829
Maximum dose of acetaminophen is 4000 mg from all sources in 24 hours.
Or oxyCODONE-acetaminophen (Percocet) 5-325 MG per tablet 2 tabletJump to med 2 tablet, Oral, Every 4 hours PRN, severe pain (7-10), Starting on Nancy 11/22/22 at 0829
Maximum dose of acetaminophen is 4000 mg from all sources in 24 hours.
Source Comments (unrecognize d section and content) In the event this informatio n is protected by the Federal Confidentiality of Alcohol and Drug Abuse Patient Records regulations: The Federal rules restrict any use of the information to criminally investigate or prosecute any alcohol or drug abuse patient.[facility] the event this information is protected by the Federal Confidentiality of Alcohol and Drug Abuse Patient Records regulations: The Federal rules restrict any use of the information to criminally investigate or prosecute any alcohol or drug abuse patient.[facility] [place]In the event this information is protected by the Federal Confidentiality of Alcohol and Drug Abuse Patient Records regulations: The Federal rules restrict any use of the information to criminally investigate or prosecute any alcohol or drug abuse patient.[facility] [place]onIn the event this information is protected by the Federal Confidentiality of Alcohol and Drug Abuse Patient Records regulations: The Federal rules restrict any use of the information to criminally investigate or prosecute any alcohol or drug abuse patient.[facility] [place]onIn the event this information is protected by the Federal Confidentiality of Alcohol and Drug Abuse Patient Records regulations: The Federal rules restrict any use of the information to criminally investigate or prosecute any alcohol or drug abuse patient.[facility] [place]onIn the event this information is protected by the Federal Confidentiality of Alcohol and Drug Abuse Patient Records regulations: The Federal rules restrict any use of the information to criminally investigate or prosecute any alcohol or drug abuse patient.[facility] [place]onIn the event this information is protected by the Federal Confidentiality of Alcohol and Drug Abuse Patient Records regulations: The Federal rules restrict any use of the information to criminally investigate or prosecute any alcohol or drug abuse patient.[facility] [place]onIn the event this information is protected by the Federal Confidentiality of Alcohol and Drug Abuse Patient Records regulations: The Federal rules restrict any use of the information to criminally investigate or prosecute any alcohol or drug abuse patient.[facility] [place]onIn the event this information is protected by the Federal Confidentiality of Alcohol and Drug Abuse Patient Records regulations: The Federal rules restrict any use of the information to criminally investigate or prosecute any alcohol or drug abuse patient.[facility] [place]onIn the event this information is protected by the Federal Confidentiality of Alcohol and Drug Abuse Patient Records regulations: The Federal rules restrict any use of the information to criminally investigate or prosecute any alcohol or drug abuse patient.[facility] [place]onIn the event this information is protected by the Federal Confidentiality of Alcohol and Drug Abuse Patient Records regulations: The Federal rules restrict any use of the information to criminally investigate or prosecute any alcohol or drug abuse patient.[facility] [place]onIn the event this information is protected by the Federal Confidentiality of Alcohol and Drug Abuse Patient Records regulations: The Federal rules restrict any use of the information to criminally investigate or prosecute any alcohol or drug abuse patient.[facility], [facility]onIn the event this information is protected by the Federal Confidentiality of Alcohol and Drug Abuse Patient Records regulations: The Federal rules restrict any use of the information to criminally investigate or prosecute any alcohol or drug abuse patient.[facility], [place]In the event this information is protected by the Federal Confidentiality of Alcohol and Drug Abuse Patient Records regulations: The Federal rules restrict any use of the information to criminally investigate or prosecute any alcohol or drug abuse patient.[facility], [place]In the event this information is protected by the Federal Confidentiality of Alcohol and Drug Abuse Patient Records regulations: The Federal rules restrict any use of the information to criminally investigate or prosecute any alcohol or drug abuse patient.[facility], [place]In the event this information is protected by the Federal Confidentiality of Alcohol and Drug Abuse Patient Records regulations: The Federal rules restrict any use of the information to criminally investigate or prosecute any alcohol or drug abuse patient.[facility], [place]In the event this information is protected by the Federal Confidentiality of Alcohol and Drug Abuse Patient Records regulations: The Federal rules restrict any use of the information to criminally investigate or prosecute any alcohol or drug abuse patient.[facility], [place]In the event this information is protected by the Federal Confidentiality of Alcohol and Drug Abuse Patient Records regulations: The Federal rules restrict any use of the information to criminally investigate or prosecute any alcohol or drug abuse patient.[facility], [place]In the event this information is protected by the Federal Confidentiality of Alcohol and Drug Abuse Patient Records regulations: The Federal rules restrict any use of the information to criminally investigate or prosecute any alcohol or drug abuse patient.[facility], [place]In the event this information is protected by the Federal Confidentiality of Alcohol and Drug Abuse Patient Records regulations: The Federal rules restrict any use of the information to criminally investigate or prosecute any alcohol or drug abuse patient.[facility], [place]In the event this information is protected by the Federal Confidentiality of Alcohol and Drug Abuse Patient Records regulations: The Federal rules restrict any use of the information to criminally investigate or prosecute any alcohol or drug abuse patient.[facility], [place]In the event this information is protected by the Federal Confidentiality of Alcohol and Drug Abuse Patient Records regulations: The Federal rules restrict any use of the information to criminally investigate or prosecute any alcohol or drug abuse patient.[facility], [place]In the event this information is protected by the Federal Confidentiality of Alcohol and Drug Abuse Patient Records regulations: The Federal rules restrict any use of the information to criminally investigate or prosecute any alcohol or drug abuse patient.[facility], [place]In the event this information is protected by the Federal Confidentiality of Alcohol and Drug Abuse Patient Records regulations: The Federal rules restrict any use of the information to criminally investigate or prosecute any alcohol or drug abuse patient.[facility], [place]In the event this information is protected by the Federal Confidentiality of Alcohol and Drug Abuse Patient Records regulations: The Federal rules restrict any use of the information to criminally investigate or prosecute any alcohol or drug abuse patient.[facility], [place]In the event this information is protected by the Federal Confidentiality of Alcohol and Drug Abuse Patient Records regulations: The Federal rules restrict any use of the information to criminally investigate or prosecute any alcohol or drug abuse patient.[facility], [place]In the event this information is protected by the Federal Confidentiality of Alcohol and Drug Abuse Patient Records regulations: The Federal rules restrict any use of the information to criminally investigate or prosecute any alcohol or drug abuse patient.[facility], [place]In the event this information is protected by the Federal Confidentiality of Alcohol and Drug Abuse Patient Records regulations: The Federal rules restrict any use of the information to criminally investigate or prosecute any alcohol or drug abuse patient.[facility], [place]In the event this information is protected by the Federal Confidentiality of Alcohol and Drug Abuse Patient Records regulations: The Federal rules restrict any use of the information to criminally investigate or prosecute any alcohol or drug abuse patient.[facility], [place]In the event this information is protected by the Federal Confidentiality of Alcohol and Drug Abuse Patient Records regulations: The Federal rules restrict any use of the information to criminally investigate or prosecute any alcohol or drug abuse patient.[facility], [place]In the event this information is protected by the Federal Confidentiality of Alcohol and Drug Abuse Patient Records regulations: The Federal rules restrict any use of the information to criminally investigate or prosecute any alcohol or drug abuse patient.[facility], [place]In the event this information is protected by the Federal Confidentiality of Alcohol and Drug Abuse Patient Records regulations: The Federal rules restrict any use of the information to criminally investigate or prosecute any alcohol or drug abuse patient.[facility], [place]In the event this information is protected by the Federal Confidentiality of Alcohol and Drug Abuse Patient Records regulations: The Federal rules restrict any use of the information to criminally investigate or prosecute any alcohol or drug abuse patient.[facility], [place]In the event this information is protected by the Federal Confidentiality of Alcohol and Drug Abuse Patient Records regulations: The Federal rules restrict any use of the information to criminally investigate or prosecute any alcohol or drug abuse patient.[facility], [place]In the event this information is protected by the Federal Confidentiality of Alcohol and Drug Abuse Patient Records regulations: The Federal rules restrict any use of the information to criminally investigate or prosecute any alcohol or drug abuse patient.[facility], [place]In the event this information is protected by the Federal Confidentiality of Alcohol and Drug Abuse Patient Records regulations: The Federal rules restrict any use of the information to criminally investigate or prosecute any alcohol or drug abuse patient.[facility], [place]In the event this information is protected by the Federal Confidentiality of Alcohol and Drug Abuse Patient Records regulations: The Federal rules restrict any use of the information to criminally investigate or prosecute any alcohol or drug abuse patient.[facility], [place]In the event this information is protected by the Federal Confidentiality of Alcohol and Drug Abuse Patient Records regulations: The Federal rules restrict any use of the information to criminally investigate or prosecute any alcohol or drug abuse patient.[facility], [place]In the event this information is protected by the Federal Confidentiality of Alcohol and Drug Abuse Patient Records regulations: The Federal rules restrict any use of the information to criminally investigate or prosecute any alcohol or drug abuse patient.[facility], [place]In the event this information is protected by the Federal Confidentiality of Alcohol and Drug Abuse Patient Records regulations: The Federal rules restrict any use of the information to criminally investigate or prosecute any alcohol or drug abuse patient.[facility], [place]In the event this information is protected by the Federal Confidentiality of Alcohol and Drug Abuse Patient Records regulations: The Federal rules restrict any use of the information to criminally investigate or prosecute any alcohol or drug abuse patient.[facility], [place]In the event this information is protected by the Federal Confidentiality of Alcohol and Drug Abuse Patient Records regulations: The Federal rules restrict any use of the information to criminally investigate or prosecute any alcohol or drug abuse patient.[facility], [place]In the event this information is protected by the Federal Confidentiality of Alcohol and Drug Abuse Patient Records regulations: The Federal rules restrict any use of the information to criminally investigate or prosecute any alcohol or drug abuse patient.[facility], [place]In the event this information is protected by the Federal Confidentiality of Alcohol and Drug Abuse Patient Records regulations: The Federal rules restrict any use of the information to criminally investigate or prosecute any alcohol or drug abuse patient.[facility], [place]In the event this information is protected by the Federal Confidentiality of Alcohol and Drug Abuse Patient Records regulations: The Federal rules restrict any use of the information to criminally investigate or prosecute any alcohol or drug abuse patient.[facility], [place]In the event this information is protected by the Federal Confidentiality of Alcohol and Drug Abuse Patient Records regulations: The Federal rules restrict any use of the information to criminally investigate or prosecute any alcohol or drug abuse patient.[facility], [place]In the event this information is protected by the Federal Confidentiality of Alcohol and Drug Abuse Patient Records regulations: The Federal rules restrict any use of the information to criminally investigate or prosecute any alcohol or drug abuse patient.[facility], [place]In the event this information is protected by the Federal Confidentiality of Alcohol and Drug Abuse Patient Records regulations: The Federal rules restrict any use of the information to criminally investigate or prosecute any alcohol or drug abuse patient.[facility], [place]In the event this information is protected by the Federal Confidentiality of Alcohol and Drug Abuse Patient Records regulations: The Federal rules restrict any use of the information to criminally investigate or prosecute any alcohol or drug abuse patient.[facility], [place]In the event this information is protected by the Federal Confidentiality of Alcohol and Drug Abuse Patient Records regulations: The Federal rules restrict any use of the information to criminally investigate or prosecute any alcohol or drug abuse patient.[facility], [place]In the event this information is protected by the Federal Confidentiality of Alcohol and Drug Abuse Patient Records regulations: The Federal rules restrict any use of the information to criminally investigate or prosecute any alcohol or drug abuse patient.[facility], [place]In the event this information is protected by the Federal Confidentiality of Alcohol and Drug Abuse Patient Records regulations: The Federal rules restrict any use of the information to criminally investigate or prosecute any alcohol or drug abuse patient.[facility] [place] FOR RECORDS PERTAINING TO PATIENTS WHO ARE OR HAVE BEEN ENROLLED IN A CHEMICAL DEPENDENCY/SUBSTANCEABUSE PROGRAM, SOME INFORMATION MAY BE OMITTED. This clinical summary was aggregated from multiple sources. Caution should be exercised in using it in the provision of clinical care. This summary normalizes information from multiple sources, and as a consequence, information in this document may materially change the coding, format and clinical context of patient data. In addition, data may be omitted in some cases. CLINICAL DECISIONS SHOULD BE BASED ON THE PRIMARY CLINICAL RECORDS. [facility]. provides no warranty or guarantee of the accuracy or completeness of information in this document.
--- NOTE | 2025-07-09 07:56 | EDS_ITS ---
HPI History of Present Illness Chief Complaint: Syncope Narrative Narrative: Patient was seen and examined after presenting to ED for near syncope she just had decompression surgery for Chiari malformation done at [facility] this was performed on this past Saturday patient was getting up to go to the bathroom and felt like she was about ready to pass out was lowered to the ground by family she denied having any chest pain or pressure no bleeding disorders nothing of that nature she is not on anticoagulation no recent illnesses. PFSH PFS Medical History Asthma BP (high blood pressure) Anxiety Migraines Home Medications ?Medication ?Instructions ?Recorded ?Last Taken ?Type multivitamin 1 tab PO DAILY 03/23/22 Unkn own History aripiprazole 5 mg tablet 5 mg PO DAILY 07/09/25 Unkno wn History sertraline 50 mg tablet 50 mg PO DAILY 07/09/25 Unkn own History trazodone 50 mg tablet 50 mg PO QHS 07/09/25 Unknow n History Allergy/AdvReac Type Severity Reaction Status Date / Time amoxicillin Allergy Hives Verified 07/09/25 06:22 Surgical History History of gastric bypass History of tonsillectomy and adenoidectomy Social History household members: family Smoking Status: Never smoker alcohol intake: never substance use type: does not use ROS ROS ED ROS Narrative Pertinent Positives: Near syncope recent surgery Pertinent Negatives: Vision changes fevers chills nausea vomiting numbness tingling chest pain pressure shortness of breath head injury The remainder of review of systems negative unless otherwise stated in the HPI above. Systems reviewed including constitutional, psychiatric, cardiovascular, respiratory, integument, HENT, gastrointestinal. EXAM Physical Exam Narrative Exam Narrative: Patient is afebrile hemodynamically stable does not appear toxic or in distress she is normocephalic and atraumatic normal range of motion of her head and neck at this point. Her surgical site does not appear to be infected whatsoever. Pupils are equal round reactive to light EOMI. Cranial nerves II through XII grossly intact. She is neurologically intact has no sensory deficits her strength is appropriate and equal bilaterally in her upper and lower extremities. Her speech is clear. No cerebellar dysfunction or nystagmus Const Vital Signs: 07/09/25 06:22 07/09/25 06:22 07/09/25 06:29 Temperature 97.9 F 97.9 F Temperature Source Oral Oral Pulse Rate 87 80 Respiratory Rate 16 16 Respiratory Effort Normal Respiratory Pattern Normal Blood Pressure 134/82 H 134/82 H Blood Pressure Mean 99 99 Pulse Ox 99 100 Oxygen Delivery Method Room Air Room Air 07/09/25 06:45 07/09/25 06:45 07/09/25 06:46 Temperature Temperature Source Pulse Rate 72 Respiratory Rate 15 Respiratory Effort Respiratory Pattern Blood Pressure 92/68 92/68 Blood Pressure Mean 75 75 Pulse Ox 100 Oxygen Delivery Method 07/09/25 07:00 07/09/25 07:15 07/09/25 07:29 Temperature 97.5 F L Temperature Source Oral Pulse Rate 74 70 67 Respiratory Rate 20 H 12 15 Respiratory Effort Respiratory Pattern Blood Pressure 116/82 H 123/85 H 122/93 H Blood Pressure Mean 93 96 102 Pulse Ox 100 100 100 Oxygen Delivery Method Room Air MDM MDM MDM Narrative Medical decision making narrative: Nursing notes, triage notes, available previous documentation, and vital signs were reviewed. Any discrepancies noted were addressed. Differential Diagnoses: Be vasovagal or orthostatic need to evaluate for any intra or cranial abnormalities or possibility of a PE although lower suspicion she has no family history of any underlying arrhythmias that cause sudden or concern for such Interventions: Fluids Given: 1 L normal saline Labs Reviewed: No leukocytosis leukopenia or significant anemia coagulopathy electrolyte abnormality renal insufficiency transaminitis troponin was less than 6 she is not Imaging Reviewed: Personally reviewed and interpreted by me: CT of the head I do not see any obvious intracranial bleed the official radiology interpretation is without any acute pathology. CT angio of her chest was negative for PE chest x-ray was unremarkable EKG: Normal sinus rhythm with some sinus arrhythmia rate of 71. I do not see evidence of ACS. No evidence of prolonged QT syndrome. No evidence of AV Block. No short CO intervals, wide QRS, or Delta waves indicative of WPW. No evidence of dagger-like q waves or LVH indicative of Hypertrophic Cardiomyopathy. No evidence of Brugada Syndrome. EKG interpretation is noted and agreed to in the EMR. The interpretation of this patient's EKG contributed directly to the care and management of this patient. Previous Documentation Reviewed: None available or applicable at this time. ED Course: Patient presenting with at this point in time patient is stable for discharge home return precautions follow-up recommendations provided as she was initially preventing for near syncope just had surgery at [facility] for Chiari malformation which she had underwent decompression she has been ambulating with the use of a walker since then she had no head injury. Her workup here was otherwise unremarkable they feel comfortable going home and following up with her surgical team and her home medical team. This note was made utilizing voice recognition software. All attempts were made to correct spelling or other errors prior to note completion. However, due to the fast-paced nature of emergency medicine, some errors may still be present. Lab Data Labs: Laboratory Results - last 24 hr 07/09/25 06:39 WBC 5.9 RBC 4.11 L Hgb 12.5 Hct 37.3 MCV 90.8 MCH 30.4 MCHC 33.5 RDW Std Deviation 42.1 RDW Coeff of Makayla 12.7 Plt Count 120 L MPV 12.9 H Immature Gran % (Auto) 0.200 Neut % (Auto) 70.1 H Lymph % (Auto) 22.2 Loving % (Auto) 4.1 Eos % (Auto) 2.9 Baso % (Auto) 0.5 Absolute Neuts (auto) 4.2 Absolute Lymphs (auto) 1.31 Nucleated RBC % 0 PT 13.4 INR 1.0 APTT 22.6 L Sodium 140 Potassium 3.8 Chloride 104 Carbon Dioxide 26.3 Anion Gap 10 BUN 13 Creatinine 0.90 Estim Creat Clear Calc 101.76 Est GFR (MDRD) Non-Af 89 BUN/Creatinine Ratio 14.7 Glucose 110 H Calcium 9.1 Total Bilirubin 0.33 AST 21 ALT 18 Alkaline Phosphatase 51 Troponin T High Sens < 6 Total Protein 6.6 Albumin 3.8 Globulin 2.9 Albumin/Globulin Ratio 1.3 Serum , Qual NEGATIVE Radiography Diagnostic Testing: Clinical Impression(s) from Imaging Studies Brain CT 07/09/25 06:26 IMPRESSION: No acute intracranial abnormalities. MRI brain may provide better evaluation if clinically warranted. Reading Location: [facility] Chest CTA 07/09/25 06:26 IMPRESSION: No evidence of pulmonary embolism. No acute chest abnormalities. Reading Location: [facility] Chest X-Ray 07/09/25 06:39 IMPRESSION: No evidence for acute abnormality. [facility] Dis[facility] Triage Chief Complaint: Syncope ED Provider: Tia Coffey Dx/Rx/DC Orders Clinical Impression: Near syncope, Lightheadedness, History of Chiari malformation Instructions: ED Near-Fainting, Uncertain Cause Prescriptions: No Action multivitamin Tablet 1 tab PO DAILY trazodone 50 mg tablet 50 mg PO QHS sertraline 50 mg tablet 50 mg PO DAILY aripiprazole 5 mg tablet 5 mg PO DAILY Primary Care Provider: Karlee Dodson Referrals: Your surgeon [Other] - As soon as possible Karlee Dodson, DO [Primary Care Provider, Family Practice] Activity Restrictions/Additional Instructions: Be sure to follow-up with your surgeon and the rest of your medical care team and let them know that you were here. Please return if you are having worsening symptoms Print Language: Lithuanian Disposition Disposition: Home, Self Care
== END 2025-07-09 08:18 | disposition home or self-care (01) ==
PROVIDERS: Emergency Provider Specialist/Technologist Athletic Trainer; PCP Family Medicine; Visit Provider Specialist/Technologist Athletic Trainer
DX: R55 Syncope and collapse (principal); R42 Dizziness and giddiness; F41.9 Anxiety disorder, unspecified; Z79.899 Other long term (current) drug therapy; Z87.798 Personal history of other (corrected) congenital malformations
CPT/HCPCS: 70450; 71045; 71275; 80053; 84484; 84703; 85025; 85610; 85730; 93005; 96360; 99285; Q9967; A4216